=== PATIENT | male | born 1960 | race Caucasian/White ===

== ENCOUNTER 2016-11-06 03:41 | Inpatient (IN) | payer OTHER ==
[2016-11-06] MEDS ORDERED: SODIUM CHLORIDE 0.9% 1,000 ML IV STA ×2 (04:01→05:01)
--- NOTE | 2016-11-06 04:09 | ED ---
General Adult HPI - General Chief complaint: Altered Mental Status Stated complaint: Hyperglycemia Time Seen by Provider: 11/06/16 04:00 Source: EMS, RN notes reviewed, old records reviewed Mode of arrival: EMS Limitations: no limitations - History of Present Illness Initial comments: This is a 56-year-old male here for evaluation. This patient presents here for evaluation of syncopal event, near syncopal event, patient presents by caregiver from extended care facility for evaluation of loss of consciousness, responsiveness, decreased activity level. Patient currently has no complaints, maybe a little bit weak. No change in medication. Patient's blood sugar was found to be high for EMS. Patient's unable to give accurate history, will send in by extended care facility - Related Data Home Medications Medication Instructions Recorded Confirmed Carvedilol [Coreg] 6.25 mg PO BID 06/13/14 11/06/16 DULoxetine HCL [Cymbalta] 30 mg PO BID 11/18/15 11/06/16 Losartan [Cozaar] 25 mg PO DAILY 11/18/15 11/06/16 Gabapentin [Neurontin] 300 mg PO TID@0500,1300,2100 01/28/16 11/06/16 Omeprazole 20 mg PO DAILY 06/12/16 11/06/16 Insulin Glargine [Lantus] 38 units SQ HS@199909/29/16 11/06/16 Multivitamins, Thera [Multivitamin] 1 tab PO DAILY 10/13/16 11/06/16 QUEtiapine [SEROquel] 200 mg PO HS@199910/13/16 11/06/16 cloNIDine HCL [Catapres] 0.2 mg PO TID@0600,1300,2100 10/13/16 11/06/16 Previous Rx's Medication Instructions Recorded Atorvastatin [Lipitor] 40 mg PO DAILY tab 10/17/16 Collagenase [Santyl] 1 applic TOPICAL Q72H applic 10/17/16 Meropenem [Merrem] 1 gm IVPB Q8HR #42 vial 10/17/16 Methadone [Dolophine] 5 mg PO Q8H #90 tab 10/17/16 Acetaminophen Tab [Tylenol] 650 mg PO Q6HR PRN #0 tab 10/19/16 Allergies Allergy/AdvReac Type Severity Reaction Status Date / Time piperacillin [From Zosyn] Allergy Severe Dyspnea Verified 10/29/16 14:24 tazobactam [From Zosyn] Allergy Severe Dyspnea Verified 10/29/16 14:24 tramadol Allergy Unknown Verified 10/13/16 11:40 fentanyl AdvReac Lightheaded Verified 10/13/16 11:40 ketorolac tromethamine AdvReac Nausea Verified 10/13/16 11:40 [From Toradol] Review of Systems ROS Statement: Those systems with pertinent positive or pertinent negative responses have been documented in the HPI. ROS Other: All systems not noted in ROS Statement are negative. Past Medical History Past Medical History: Blood Disorder, Respiratory Disorder, Vascular Disorder Additional Past Medical History / Comment(s): PAD, gastric ulcer hx, chronic back pain, chronic anemia, HCV, mid lung nodule, bollous lung disease, HEP-C, ANEMIA migraine,DECUB ULCER-BUTTOCKS, NEUROPATHY -FINGERS, MIGRAINES, History of Any Multi-Drug Resistant Organisms: MRSA, Other MDRO, VRE Date of last positivie culture/infection: 04/22/16-VRE; 04/22/16-MDRO- Acinetobacter; 09/29/16 MRSA MDRO Source:: Buttock-VRE and MRSA; Right Leg-MDRO; BUTTOCKS Past Surgical History: Adenoidectomy, Appendectomy, Heart Catheterization, Hernia Repair, Orthopedic Surgery, Tonsillectomy Additional Past Surgical History / Comment(s): R BKA, R BKA revision to AKAStorm AKLeo Past Anesthesia/Blood Transfusion Reactions: No Reported Reaction Additional Past Anesthesia/Blood Transfusion Reaction / Comment(s): Pt has never received blood. Past Psychological History: Depression Additional Psychological History / Comment(s): CURRENTLY AT [facility]. He is in a wheelchair and transfers himself. . He does not drive. GOES TO [facility] ON [facility]YS. Smoking Status: Current every day smoker Past Alcohol Use History: Unable to Obtain Additional Past Alcohol Use History / Comment(s): STARTED SMOKING AT AGE 12 1/2 PPD BUT CUT DOWN TO 5 PER DAY PT STATED HE STARTED USING HEROIN AT AGE 29 AND QUIT AT AGE 47. Past Drug Use History: Heroin Additional Drug Use History / Comment(s): PT STATED HE QUIT HEROIN AT AGE 47 - Past Family History Mother Family Medical History: Cancer Additional Family Medical History / Comment(s): Mother of brain cancer mets at the age of 68 yrs. Father Family Medical History: Cancer, Coronary Artery Disease (CAD) Additional Family Medical History / Comment(s): Father of throat cancer at the age of 70yrs. General Exam Limitations: no limitations General appearance: alert, in no apparent distress Head exam: Present: atraumatic, normocephalic, normal inspection Eye exam: Present: normal appearance, PERRL, EOMI. Absent: scleral icterus, conjunctival injection, periorbital swelling ENT exam: Present: normal exam, mucous membranes moist Neck exam: Present: normal inspection. Absent: tenderness, meningismus, lymphadenopathy Respiratory exam: Present: normal lung sounds bilaterally. Absent: respiratory distress, wheezes, rales, rhonchi, stridor Cardiovascular Exam: Present: regular rate, normal rhythm, normal heart sounds. Absent: systolic murmur, diastolic murmur, rubs, gallop, clicks GI/Abdominal exam: Present: soft, normal bowel sounds. Absent: distended, tenderness, guarding, rebound, rigid Extremities exam: Present: normal inspection, full ROM, normal capillary refill. Absent: tenderness, pedal edema, joint swelling, calf tenderness Back exam: Present: normal inspection Neurological exam: Present: alert, oriented X3, CN II-XII intact Psychiatric exam: Present: normal affect, normal mood Skin exam: Present: warm, dry, intact, normal color. Absent: rash Course Vital Signs 11/06/16 11/06/16 03:43 04:36 Temperature 97.8 F Pulse Rate 79 80 Respiratory 18 18 Rate Blood Pressure 118/65 154/85 O2 Sat by Pulse 100 98 Oximetry - Reevaluation(s) Reevaluation #1: 11/06/16 05:02 Patient denies any chest pain or shortness of breath EKG Findings - EKG Comments: EKG Findings:: EKG shows normal sinus rhythm of 80, NH 13, QRS 104, QTC 479 Medical Decision Making - Medical Decision Making 56 male here for evaluation. Patient's endeared reversible to mental status, syncopal event. Patient elevated troponin, dehydration. Patient will be admitted for cardiac observation, continued serial troponins and cardiac evaluation - Lab Data Result diagrams: 11/06/16 03:55 11/06/16 03:55 Lab Results 11/06/16 11/06/1617 Range/Units 03:55 03:55 03:55 WBC 5.7 (3.8-10.6) k/uL RBC 3.04 L (4.30-5.90) m/uL Hgb 8.7 L (13.0-17.5) gm/dL Hct 28.6 L (39.0-53.0) % MCV 94.2 (80.0-100.0) fL MCH 28.7 (25.0-35.0) pg MCHC 30.5 L (31.0-37.0) g/dL RDW 17.3 H (11.5-15.5) % Plt Count 380 (150-450) k/uL Neutrophils % 65 % Lymphocytes % 23 % Monocytes % 6 % Eosinophils % 5 % Basophils % 0 % Neutrophils # 3.7 (1.3-7.7) k/uL Lymphocytes # 1.3 (1.0-4.8) k/uL Monocytes # 0.3 (0-1.0) k/uL Eosinophils # 0.3 (0-0.7) k/uL Basophils # 0.0 (0-0.2) k/uL Hypochromasia Slight Anisocytosis Slight PT (9.0-12.0) sec INR (<1.1) APTT (22.0-30.0) sec Sodium 136 L (137-145) mmol/L Potassium 5.3 H (3.5-5.1) mmol/L Chloride 105 (98-107) mmol/L Carbon Dioxide 20 L (22-30) mmol/L Anion Gap 11 mmol/L BUN 42 H (9-20) mg/dL Creatinine 2.30 H (0.66-1.25) mg/dL Est GFR (MDRD) Af Amer 36 (>60 ml/min/1.73 sqM) Est GFR (MDRD) Non-Af 29 (>60 ml/min/1.73 sqM) Glucose 370 H (74-99) mg/dL Plasma Lactic Acid Ayo (0.7-2.0) mmol/L Calcium 8.9 (8.4-10.2) mg/dL Phosphorus 4.4 (2.5-4.5) mg/dL Magnesium 1.8 (1.6-2.3) mg/dL Total Bilirubin 0.5 (0.2-1.3) mg/dL AST 46 (17-59) U/L ALT 51 (21-72) U/L Alkaline Phosphatase 110 (38-126) U/L Total Creatine Kinase 1010 H (55-170) U/L CK-MB (CK-2) 5.7 H* (0.0-2.4) ng/mL CK-MB (CK-2) Rel Index 0.6 Troponin I 1.840 H* (0.000-0.034) ng/mL Total Protein 7.0 (6.3-8.2) g/dL Albumin 3.5 (3.5-5.0) g/dL 11/06/16 11/06/16 Range/Units 03:55 03:55 WBC (3.8-10.6) k/uL RBC (4.30-5.90) m/uL Hgb (13.0-17.5) gm/dL Hct (39.0-53.0) % MCV (80.0-100.0) fL MCH (25.0-35.0) pg MCHC (31.0-37.0) g/dL RDW (11.5-15.5) % Plt Count (150-450) k/uL Neutrophils % % Lymphocytes % % Monocytes % % Eosinophils % % Basophils % % Neutrophils # (1.3-7.7) k/uL Lymphocytes # (1.0-4.8) k/uL Monocytes # (0-1.0) k/uL Eosinophils # (0-0.7) k/uL Basophils # (0-0.2) k/uL Hypochromasia Anisocytosis PT 10.6 (9.0-12.0) sec INR 1.1 (<1.1) APTT 22.6 (22.0-30.0) sec Sodium (137-145) mmol/L Potassium (3.5-5.1) mmol/L Chloride (98-107) mmol/L Carbon Dioxide (22-30) mmol/L Anion Gap mmol/L BUN (9-20) mg/dL Creatinine (0.66-1.25) mg/dL Est GFR (MDRD) Af Amer (>60 ml/min/1.73 sqM) Est GFR (MDRD) Non-Af (>60 ml/min/1.73 sqM) Glucose (74-99) mg/dL Plasma Lactic Acid Ayo 0.8 (0.7-2.0) mmol/L Calcium (8.4-10.2) mg/dL Phosphorus (2.5-4.5) mg/dL Magnesium (1.6-2.3) mg/dL Total Bilirubin (0.2-1.3) mg/dL AST (17-59) U/L ALT (21-72) U/L Alkaline Phosphatase (38-126) U/L Total Creatine Kinase (55-170) U/L CK-MB (CK-2) (0.0-2.4) ng/mL CK-MB (CK-2) Rel Index Troponin I (0.000-0.034) ng/mL Total Protein (6.3-8.2) g/dL Albumin (3.5-5.0) g/dL - Radiology Data Radiology results: report reviewed (CT brain negative for acute disease, chest x -ray negative for acute disease), image reviewed Critical Care Time Critical Care Time: Yes Total Critical Care Time: 31 Disposition Clinical Impression: Altered mental status, Chest pain, NSTEMI (non-ST elevated myocardial infarction) Disposition: ADMITTED IP TO THIS HOSP Condition: Serious Instructions: Altered Mental Status (ED) Referrals: Brent Chong MD [Primary Care Provider] - 1-2 days
[2016-11-06 04:12] LABS: Anisocytosis Slight; Basophils % (A) 0 %; CH 29.3; CHCM 31.3; Eosinophils # (A) 0.3 k/uL (0-0.7); Eosinophils % (A) 5 %; HCT 28.6 % (39.0-53.0); HDW 2.99; HGB 8.7 gm/dL (13.0-17.5); Hypochromasia Slight; Luc # (Auto) 0.06; Luc % (Auto) 1; Lymphocytes # (A) 1.3 k/uL (1.0-4.8); Lymphocytes % (A) 23 %; MCH 28.7 pg (25.0-35.0); MCHC 30.5 g/dL (31.0-37.0); MCV 94.2 fL (80.0-100.0); Mean Platelet Volume 7.5; Monocytes # (A) 0.3 k/uL (0-1.0); Monocytes % (A) 6 %; Neutrophils # (A) 3.7 k/uL (1.3-7.7); Neutrophils % (A) 65 %; RBC 3.04 m/uL (4.30-5.90); RDW 17.3 % (11.5-15.5); WBC 5.7 k/uL (3.8-10.6)
[2016-11-06 04:21] LABS: INR 1.1 (<1.1); Partial Thromboplastin Time 22.6 sec (22.0-30.0); Prothrombin Time 10.6 sec (9.0-12.0)
[2016-11-06 04:22] LABS: Calcium 8.9 mg/dL (8.4-10.2); Magnesium 1.8 mg/dL (1.6-2.3); Phosphorous 4.4 mg/dL (2.5-4.5); Potassium 5.3 mmol/L (3.5-5.1); Total Bilirubin 0.5 mg/dL (0.2-1.3)
--- NOTE | 2016-11-06 04:32 | CT ---
EXAMINATION TYPE: CT brain wo con DATE OF EXAM: 11/06/2016 4:18 AM COMPARISON: October 13, 2016 HISTORY: AMS, hyperglycemia CT DLP: 978.20 mGycm Automated exposure control for dose reduction was used. FINDINGS: There is no acute intracranial hemorrhage, mass effect, or midline shift identified. The cortical sul ci and ventricles are slightly prominent with mild atrophic changes. The cortical sulci are more prom inent in the frontal areas more on the left side. The globes are intact. Mild mucosal thickening is s uggested in the ethmoid sinuses with chronic sinusitis changes. IMPRESSION: No acute intracranial hemorrhage, mass effect, or midline shift is seen. Mild atrophic changes of brain. No significant interval change. Chronic sinusitis changes.
[2016-11-06 04:50] LABS: Creatine Kinase MB 5.7 ng/mL (0.0-2.4); Troponin I 1.84 ng/mL (0.000-0.034)
[2016-11-06] MEDS ORDERED: NITROGLYCERIN SL TABS 0.4 MG TAB SUBLINGUAL PRN (04:59)
[2016-11-06] MEDS ORDERED: HEPARIN SODIUM,PORCINE 5,000 UNIT/ML 1 ML VIAL IV ONE (04:59)
[2016-11-06] MEDS ORDERED: ASPIRIN 81 MG CHEW PO STA (04:59)
[2016-11-06] MEDS: HEPARIN SODIUM,PORCINE/D5W PMX 25,000 UNIT in DEXTROSE/WATER 1 500ML.BAG IV SCH (05:25)
--- NOTE | 2016-11-06 06:45 | XR ---
EXAMINATION TYPE: XR chest 1V portable DATE OF EXAM: 11/06/2016 6:33 AM COMPARISON: October 13, 2016 and 09/29/2016 HISTORY: Altered mental status, weakness hypoglycemia. TECHNIQUE: Single frontal view of the chest is obtained. FINDINGS: There is evidence of faint opacities measuring 1.8 cm and 1.1 cm in the right lung and are probably r elated to focal scarring. Underlying lung nodules cannot be excluded. There is also evidence of super imposed right rib fractures posteriorly. There are also multiple old left rib fractures. No pneumothorax or pleural effusion is noted. The cardiac silhouette size is within normal limits. At herosclerotic calcification is noted in the aortic arch. The osseous structures are intact. IMPRESSION: 1. Faint nodular areas are noted in the right lung as described above are probably related to focal s carring or calcified pleural plaques. Underlying lung nodules cannot be excluded. A clinical correlat ion is recommended. 2. Chronic lung changes.
[2016-11-06] MEDS: SODIUM CHLORIDE 0.9% 1,000 ML IV SCH ×2 (07:00→14:33)
[2016-11-06 07:51] LABS: Glucose,Whole Blood 406 mg/dL (75-99)
[2016-11-06 07:53] LABS: Glucose,Whole Blood 348 mg/dL (75-99)
[2016-11-06] MEDS: INSULIN LISPRO (humaLOG) 300 UNIT/3 ML VIAL SQ SCH ×3 (08:36→21:46)
[2016-11-06] MEDS ORDERED: MEROPENEM 1 GM in SODIUM CHLORIDE 0.9% 100 ML IVPB SCH (10:00)
[2016-11-06 11:06] LABS: Creatine Kinase MB 6.7 ng/mL (0.0-2.4); Troponin I 1.42 ng/mL (0.000-0.034)
[2016-11-06] MEDS ORDERED: IV VANCOMYCIN PER PHARMACY 1 EACH MISC MISCELLANE PRN (14:13)
--- NOTE | 2016-11-06 14:26 | P.CONS ---
History of Present Illness - Reason for Consult Consult date: 11/06/16 IV antibiotics, wound - History of Present Illness This is a 56-year-old male who is well-known to ID service as he has been seen on multiple occasions for lower extremity and coccyx wound infections. Patient was last seen by infectious disease in April 2016 at which time he was treated for coccyx decubitus ulcer stage IV and had a PICC line placed and was discharged on Unasyn 3 g every 6 hours for 28 days. He also had a Cardoza grade 2 diabetic ulcer to the right below the knee amputation. Patient was subsequently admitted June 12 at which time he underwent a right [id number]-[id number] amputation with Dr. Stout. Pathology was positive for osteomyelitis. He was discharged with PICC line in place and Rocephin for a 10 day course. Patient was apparently discharged [facility] and discharged to home which is an apartment at [facility]. [facility] under the care of Dr. Chong initially on August 17 and underwent coccyx wound debridement. Patient was to return on a weekly basis but missed 3 appointments due to transportation issues and a second appointment was on September 17. He also underwent an I&D of the coccyx wound at that time. Local wound care in the form of Hydrofera Blue. He was found at home with mental status changes and complaining of back pain. He was brought into [facility] emergency center for evaluation. WBC 8.0, GFR greater than 60, hemoglobin A1c 8.6, albumin 3.5. Urinalysis was clear, nitrite negative, leukoesterase trace. Urine culture is in progress. Blood culture is status received. Buttocks culture showing gram-positive cocci in clusters. he has been started on vancomycin and Zosyn with concern for osteomyelitis. He has had previous imaging done on the area in June with CAT scan that showed soft tissue changes in the right posterior sacral region with increased density within the soft tissue extends into the osseous structures. Abscess not identified although infection not excluded. Patient had a polymicrobial infection noted of his sacrum during his stay. Antibiotic therapy at discharge was Zosyn and vancomycin. He again was admitted from October 13 through October 19 at which time he was treated for sacral decubitus ulcer. MRI was done did not show evidence of osteomyelitis. Patient was discharged on meropenem and vancomycin to [facility]. Patient now returns to [facility] emergency center due to altered mental status. Patient was brought in by EMS for possible near syncopal episode patient was found to be extremely weak with change in mental status. Chest x-ray showed nodular areas in the right lung probably scarring with chronic changes. CAT scan of the brain showed no acute findings with mild atrophic changes. Patient was noted to be afebrile with white count of 5.7, hemoglobin 8.7. Potassium 5.3 and BUN 42 with creatinine 2.30. CK was 1010. Troponins were 1.840 and 1.420. Patient was noted to have a wound to the left clavicle and right cheek for which apparently he fell out of his scooter. Information passed on through nursing staff as the patient was living at home and was found covered in stool. He also has admitted to staff that he has been taking more than his prescribed methadone for pain control at home. He has multiple consults in place including cardiology, intensive care management although patient is a selective care overflow. Review of Systems ROS unobtainable: due to mental status Past Medical History Past Medical History: Blood Disorder, Diabetes Mellitus, Respiratory Disorder, Vascular Disorder Additional Past Medical History / Comment(s): PAD, gastric ulcer hx, chronic back pain, chronic anemia, HCV, mid lung nodule, bollous lung disease, HEP-C, ANEMIA migraine,DECUB ULCER-BUTTOCKS, NEUROPATHY -FINGERS, MIGRAINES, History of Any Multi-Drug Resistant Organisms: MRSA, Other MDRO, VRE Year Discovered:: 04/22/16-VRE; 04/22/1606-KGKF-[id number]; 09/29/16 MRSA MDRO Source:: Buttock-VRE and MRSA; Right Leg-MDRO; BUTTOCKS Past Surgical History: Adenoidectomy, Appendectomy, Heart Catheterization, Hernia Repair, Orthopedic Surgery, Tonsillectomy Additional Past Surgical History / Comment(s): R GORGE, R GORGE revision to Storm JENKINS Past Anesthesia/Blood Transfusion Reactions: No Reported Reaction Additional Past Anesthesia/Blood Transfusion Reaction / Comm: Pt recently received blood. Past Psychological History: Depression Additional Psychological History / Comment(s): Pt is back home residing alone. He is in a wheelchair and transfers himself. He does not drive. GOES TO [facility] ON [facility] but sometimes is unable to get there due to transportation problems. He uses the bus. Pt states he has no home care. He has a dog. Smoking Status: Current every day smoker Past Alcohol Use History: Unable to Obtain Additional Past Alcohol Use History / Comment(s): STARTED SMOKING AT AGE 12 1/2 PPD BUT CUT DOWN TO 5 PER DAY PT STATED HE STARTED USING HEROIN AT AGE 29 AND QUIT AT AGE 47. Past Drug Use History: Heroin Additional Drug Use History / Comment(s): PT STATED HE QUIT HEROIN AT AGE 47. Pt is on methadone. - Past Family History Mother Family Medical History: Cancer Additional Family Medical History / Comment(s): Mother of brain cancer mets at the age of 68 yrs. Father Family Medical History: Cancer, Coronary Artery Disease (CAD) Additional Family Medical History / Comment(s): Father of throat cancer at the age of 70yrs. Medications and Allergies Home Medications Medication Instructions Recorded Confirmed Type Carvedilol [Coreg] 6.25 mg PO BID 06/13/14 11/06/16 History DULoxetine HCL [Cymbalta] 30 mg PO BID 11/18/15 11/06/16 History Losartan [Cozaar] 25 mg PO DAILY 11/18/15 11/06/16 History Gabapentin [Neurontin] 300 mg PO TID 01/28/16 11/06/16 History Omeprazole 20 mg PO DAILY 06/12/16 11/06/16 History Multivitamins, Thera [Multivitamin] 1 tab PO DAILY 10/13/16 11/06/16 History QUEtiapine [SEROquel] 200 mg PO HS@199910/13/16 11/06/16 History INSULIN LISPRO (humaLOG) [HumaLOG] See Protocol SQ AC-TID 11/06/16 11/06/16 History Insulin Detemir [Levemir] 38 unit SQ DAILY 11/06/16 11/06/16 History Methadone [Dolophine] 10 mg PO Q8HR 11/06/16 11/06/16 History Allergies Allergy/AdvReac Type Severity Reaction Status Date / Time piperacillin [From Zosyn] Allergy Severe Dyspnea Verified 10/29/16 14:24 tazobactam [From Zosyn] Allergy Severe Dyspnea Verified 10/29/16 14:24 tramadol Allergy Unknown Verified 10/13/16 11:40 fentanyl AdvReac Lightheaded Verified 10/13/16 11:40 ketorolac tromethamine AdvReac Nausea Verified 10/13/16 11:40 [From Toradol] Physical Exam Vitals: Vital Signs Temp Pulse Resp BP Pulse Ox 11/06/16 08:39 97.2 F L 75 16 150/81 98 11/06/16 07:51 77 16 136/80 96 11/06/16 07:14 75 15 126/75 93 L 11/06/16 05:56 82 154/84 98 Intake and Output 11/05/16 11/06/16 11/06/16 22:59 06:59 14:59 Other: Weight 48.8 kg Patient Weight 11/07/16 06:59 Weight 48.8 kg This is a 56-year-old emaciated male. He is seen in the intensive care unit. He has very minimal response to verbal stimuli. Voice is mumbled and unable to understand speech. HEENT: Head is normocephalic. Large abrasion to the right cheek. Pupils equal , round. Sclerae is anicteric. Mucous membranes of the mouth are dry. Dentition is in poor order. NECK: Supple. No JVD. No lymphadenopathy. No thyromegaly. Wound to the left clavicle with surrounding erythema. LUNGS: Coarse sounds bilaterally with poor inspiratory effort. No intercostal retractions. HEART: Regular rate and rhythm. No murmur. ABDOMEN: Soft. Bowel sounds are present. No masses. No tenderness. EXTREMITIES: Bilateral lower extremity amputations noted. Wounds to the bilateral lateral surfaces of both stumps. Large sacral decubitus ulcer. NEUROLOGICAL: Patient is now obtunded with minimal eye opening to verbal stimuli. Unable to follow any direction. Speech is low volume and mumbled. Results Results: Laboratory Results WBC 5.7 k/uL (3.8-10.6) 11/06/16 03:55 RBC 3.04 m/uL (4.30-5.90) L 11/06/16 03:55 Hgb 8.7 gm/dL (13.0-17.5) L 11/06/16 03:55 Hct 28.6 % (39.0-53.0) L 11/06/16 03:55 MCV 94.2 fL (80.0-100.0) 11/06/16 03:55 MCH 28.7 pg (25.0-35.0) 11/06/16 03:55 MCHC 30.5 g/dL (31.0-37.0) L 11/06/16 03:55 RDW 17.3 % (11.5-15.5) H 11/06/16 03:55 Plt Count 380 k/uL (150-450) 11/06/16 03:55 Neutrophils % 65 % 11/06/16 03:55 Lymphocytes % 23 % 11/06/16 03:55 Monocytes % 6 % 11/06/16 03:55 Eosinophils % 5 % 11/06/16 03:55 Basophils % 0 % 11/06/16 03:55 Neutrophils # 3.7 k/uL (1.3-7.7) 11/06/16 03:55 Lymphocytes # 1.3 k/uL (1.0-4.8) 11/06/16 03:55 Monocytes # 0.3 k/uL (0-1.0) 11/06/16 03:55 Eosinophils # 0.3 k/uL (0-0.7) 11/06/16 03:55 Basophils # 0.0 k/uL (0-0.2) 11/06/16 03:55 Hypochromasia Slight 11/06/16 03:55 Anisocytosis Slight 11/06/16 03:55 PT 10.6 sec (9.0-12.0) 11/06/16 03:55 INR 1.1 (<1.1) 11/06/16 03:55 APTT 22.6 sec (22.0-30.0) 11/06/16 03:55 Sodium 136 mmol/L (137-145) L 11/06/16 03:55 Potassium 5.3 mmol/L (3.5-5.1) H 11/06/16 03:55 Chloride 105 mmol/L (98-107) 11/06/16 03:55 Carbon Dioxide 20 mmol/L (22-30) L 11/06/16 03:55 Anion Gap 11 mmol/L 11/06/16 03:55 BUN 42 mg/dL (9-20) H 11/06/16 03:55 Creatinine 2.30 mg/dL (0.66-1.25) H 11/06/16 03:55 Est GFR (MDRD) Af Amer 36 (>60 ml/min/1.73 sqM) 11/06/16 03:55 Est GFR (MDRD) Non-Af 29 (>60 ml/min/1.73 sqM) 11/06/16 03:55 Glucose 370 mg/dL (74-99) H 11/06/16 03:55 POC Glucose (mg/dL) 348 mg/dL (75-99) H 11/06/16 07:49 POC Glu Choir Accompanist Katya Yee 11/06/16 07:49 Plasma Lactic Acid Ayo 0.8 mmol/L (0.7-2.0) 11/06/16 03:55 Calcium 8.9 mg/dL (8.4-10.2) 11/06/16 03:55 Phosphorus 4.4 mg/dL (2.5-4.5) 11/06/16 03:55 Magnesium 1.8 mg/dL (1.6-2.3) 11/06/16 03:55 Total Bilirubin 0.5 mg/dL (0.2-1.3) 11/06/16 03:55 AST 46 U/L (17-59) 11/06/16 03:55 ALT 51 U/L (21-72) 11/06/16 03:55 Alkaline Phosphatase 110 U/L (38-126) 11/06/16 03:55 Total Creatine Kinase 1076 U/L (55-170) H 11/06/16 09:47 CK-MB (CK-2) 6.7 ng/mL (0.0-2.4) H* 11/06/16 09:47 CK-MB (CK-2) Rel Index 0.6 11/06/16 09:47 Troponin I 1.420 ng/mL (0.000-0.034) H* 11/06/16 09:47 Total Protein 7.0 g/dL (6.3-8.2) 11/06/16 03:55 Albumin 3.5 g/dL (3.5-5.0) 11/06/16 03:55 CBC & Chem 7: 11/06/16 03:55 11/06/16 03:55 Labs: Abnormal Lab Results - Last 24 Hours (Table) 11/06/16 11/06/16 Range/Units 07:49 09:47 POC Glucose (mg/dL) 348 H (75-99) mg/dL Total Creatine Kinase 1076 H (55-170) U/L CK-MB (CK-2) 6.7 H* (0.0-2.4) ng/mL Troponin I 1.420 H* (0.000-0.034) ng/mL Assessment and Plan Plan: This is a 56-year-old male who is well-known to ID service for multiple admissions for stage IV decubitus ulcer and previous lower extremity wounds status post [id number] amputations bilaterally. Patient now presents with metabolic encephalopathy with noted recent falls at home possibly due to sepsis, overuse of methadone. Patient was also found to have elevated troponins possibly due to acute non-ST elevated myocardial infarction. Patient also presented with acute kidney injury. Blood cultures will be ordered. Consult with general surgeon for debridement of wounds including left clavicle wound and sacral decubitus ulcer. Meropenem and vancomycin will be started based on previous cultures. Wound culture has been obtained from the left clavicle wound. He is in contact isolation for previous MRSA. Wound cultures also been positive for Pseudomonas, Proteus,Providencia stuartii. Due to multiple comorbidities and patient's noncompliance, patient may benefit from comfort care. The above dictated assessment and findings were discussed with Dr. Becerra. The impression and plan of care have been directed as dictated. Keena Chambers nurse practitioner acting as scribe for Dr. Becerra. Time with Patient: Greater than 30
[2016-11-06] MEDS ORDERED: VANCOMYCIN 750 MG in SODIUM CHLORIDE 0.9% 250 ML IVPB ONE (14:30)
[2016-11-06] MEDS: ATORVASTATIN 80 MG TAB PO SCH (14:30)
[2016-11-06 16:02] LABS: Creatine Kinase MB 5.9 ng/mL (0.0-2.4); Troponin I 1.22 ng/mL (0.000-0.034)
--- NOTE | 2016-11-06 17:10 | P.HPIM ---
History of Present Illness H&P Date: 11/06/16 Chief Complaint: Altered mental status Patient is a 56-year-old male patient treated outpatient by Dr. Chong. 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 Patient was recently admitted to the hospital from 10/13/2016 through 10/19/2016 where he had presented with profound anemia and was being treated for infection of decubitus sacral ulcer. Patient was eventually discharged to [facility] on IV antibiotics. According to chart, patient presented to the emergency department via EMS from the [facility] for evaluation of syncopal event and decreased level of consciousness. Chest x-ray with evidence of nodular areas in the right lung probably scarring with chronic changes. CAT scan of the brain showed no acute findings with mild atrophic changes. Admission lab work: WBC 5.7, hemoglobin 8.7, potassium 5.3, glucose 370, troponins 1.8, 1.4, and 1.2. Patient was admitted to the intensive care unit with consults to infectious disease service, cardiology, and Dr. Hou for ICU management. Upon evaluation, patient is quite obtunded and an unreliable historian. Past Medical History Past Medical History: Blood Disorder, Diabetes Mellitus, Respiratory Disorder, Vascular Disorder Additional Past Medical History / Comment(s): PAD, gastric ulcer hx, chronic back pain, chronic anemia, HCV, mid lung nodule, bollous lung disease, HEP-C, ANEMIA migraine,DECUB ULCER-BUTTOCKS, NEUROPATHY -FINGERS, MIGRAINES, History of Any Multi-Drug Resistant Organisms: MRSA, Other MDRO, VRE Date of last positivie culture/infection: 04/22/16-VRE; 04/22/16-MDRO- Acinetobacter; 09/29/16 MRSA MDRO Source:: Buttock-VRE and MRSA; Right Leg-MDRO; BUTTOCKS Past Surgical History: Adenoidectomy, Appendectomy, Heart Catheterization, Hernia Repair, Orthopedic Surgery, Tonsillectomy Additional Past Surgical History / Comment(s): R BKA, R BKA revision to AKA, Storm AKLeo Past Anesthesia/Blood Transfusion Reactions: No Reported Reaction Additional Past Anesthesia/Blood Transfusion Reaction / Comment(s): Pt recently received blood. Past Psychological History: Depression Additional Psychological History / Comment(s): Pt is back home residing alone. He is in a wheelchair and transfers himself. He does not drive. GOES TO THE [facility] ON [address] but sometimes is unable to get there due to transportation problems. He uses the bus. Pt states he has no home care. He has a dog. Smoking Status: Current every day smoker Past Alcohol Use History: Unable to Obtain Additional Past Alcohol Use History / Comment(s): STARTED SMOKING AT AGE 12 1/2 PPD BUT CUT DOWN TO 5 PER DAY PT STATED HE STARTED USING HEROIN AT AGE 29 AND QUIT AT AGE 47. Past Drug Use History: Heroin Additional Drug Use History / Comment(s): PT STATED HE QUIT HEROIN AT AGE 47. Pt is on methadone. - Past Family History Mother Family Medical History: Cancer Additional Family Medical History / Comment(s): Mother of brain cancer mets at the age of 68 yrs. Father Family Medical History: Cancer, Coronary Artery Disease (CAD) Additional Family Medical History / Comment(s): Father of throat cancer at the age of 70yrs. Medications and Allergies Home Medications Medication Instructions Recorded Confirmed Type Carvedilol [Coreg] 6.25 mg PO BID 06/13/14 11/06/16 History DULoxetine HCL [Cymbalta] 30 mg PO BID 11/18/15 11/06/16 History Losartan [Cozaar] 25 mg PO DAILY 11/18/15 11/06/16 History Gabapentin [Neurontin] 300 mg PO TID 01/28/16 11/06/16 History Omeprazole 20 mg PO DAILY 06/12/16 11/06/16 History Multivitamins, Thera [Multivitamin] 1 tab PO DAILY 10/13/16 11/06/16 History QUEtiapine [SEROquel] 200 mg PO HS@199910/13/16 11/06/16 History INSULIN LISPRO (humaLOG) [HumaLOG] See Protocol SQ AC-TID 11/06/16 11/06/16 History Insulin Detemir [Levemir] 38 unit SQ DAILY 11/06/16 11/06/16 History Methadone [Dolophine] 10 mg PO Q8HR 11/06/16 11/06/16 History Allergies Allergy/AdvReac Type Severity Reaction Status Date / Time piperacillin [From Zosyn] Allergy Severe Dyspnea Verified 10/29/16 14:24 tazobactam [From Zosyn] Allergy Severe Dyspnea Verified 10/29/16 14:24 tramadol Allergy Unknown Verified 10/13/16 11:40 fentanyl AdvReac Lightheaded Verified 10/13/16 11:40 ketorolac tromethamine AdvReac Nausea Verified 10/13/16 11:40 [From Toradol] Physical Exam Vitals: Vital Signs Temp Pulse Resp BP Pulse Ox 11/06/16 08:39 97.2 F L 75 16 150/81 98 11/06/16 07:51 77 16 136/80 96 11/06/16 07:14 75 15 126/75 93 L 11/06/16 05:56 82 154/84 98 Intake and Output 11/06/16 11/06/16 11/06/16 06:59 14:59 22:59 Intake Total 223.4 Balance 223.4 Intake: Intake, IV Titration 223.4 Amount Heparin Sodium,Porcine/ 23.4 D5w Pmx 25,000 unit In Dextrose/Water 1 500ml. bag @ 12 UNITS/KG/HR 11. 71 mls/hr IV .Q24H ROSA Rx #:[id number] Sodium Chloride 0.9% 1, 200 000 ml @ 100 mls/hr IV . Q10H ROSA Rx#:[id number] Other: Weight 48.8 kg Patient Weight 11/07/16 06:59 Weight 48.8 kg GENERAL: Pt is lethargic, disheveled, thin, in no apparent distress. HEAD: Normocephalic. Abrasion to right cheek. EYES: Pupils equal and round. Sclera anicteric, conjunctiva are normal. ENT: Dry mucous membranes. NECK:Supple without lymphadenopathy or JVD. LUNGS: Breath sounds diminished to auscultation bilaterally. HEART: Heart S1, S2, no S3 or S4. Regular rate and rhythm. No murmurs, rubs or gallops. ABDOMEN: Soft, nontender, nondistended, normoactive bowel sounds. No guarding, no rebound. No masses or organomegaly appreciated. EXTREMITIES: Bilateral lower BKA. Wounds to bilateral surfaces of both stumps. NEUROLOGICAL: Pt oriented x 1. Obtunded. PSYCH: Calm. SKIN: Warm, dry. Large sacral decubitus ulcer, please see nursing documentation for picture and wound measurements. Results CBC & Chem 7: 11/06/16 03:55 11/06/16 03:55 Labs: Abnormal Lab Results - Last 24 Hours (Table) 11/06/16 11/06/16 11/06/16 Range/Units 07:49 09:47 15:24 POC Glucose (mg/dL) 348 H (75-99) mg/dL Total Creatine Kinase 1076 H 754 H (55-170) U/L CK-MB (CK-2) 6.7 H* 5.9 H* (0.0-2.4) ng/mL Troponin I 1.420 H* 1.220 H* (0.000-0.034) ng/mL Microbiology - Last 24 Hours (Table) 11/06/16 10:00 Wound Culture - Preliminary Chest Thrombosis Risk Factor Assmnt - DVT/VTE Prophylaxis DVT/VTE Prophylaxis: Pharmacologic Prophylaxis ordered - Choose All That Apply Any of the Below Risk Factors Present?: Yes Each Factor Represents 1 point: Abnormal pulmonary function (COPD), Acute AR, Age 41-60 years, Medical pt on bed rest Other Risk Factors: Yes Each Risk Factor Represents 2 Points: Patient confined to bed Other congenital or acquired thrombophilia - If yes, enter type in comment: No Thrombosis Risk Factor Assessment Total Risk Factor Score: 6 Thrombosis Risk Factor Assessment Level: High Risk Assessment and Plan Plan: Impression and plan: 1. Metabolic encephalopathy suspect secondary to sepsis and possible overuse of methadone. 2. Elevated troponins suspect secondary to acute non-ST elevated myocardial infarction. Cardiology consult requested, recommendations pending. 3. Acute kidney injury. 4. Stage IV pressure ulcer sacrum. Infectious disease consult requested for IV antibiotics and wound care orders, recommendations noted. 5. Insulin-dependent diabetes mellitus, uncontrolled. Continue Lantus 40 units subcu at bedtime, continue Humalog sliding scale. 6. Coronary artery disease. Most recent echocardiogram with preserved LV function with EF 55-60%. 7. Anemia suspect secondary to acute blood loss and chronic disease. Most recent EGD findings of mild antral gastritis and mild esophagitis with no evidence of upper GI bleed. Colonoscopy with no evidence of active bleed. 8. Wound to left clavicle, please see nursing documentation for wound measurements. 9. History of bilateral AKA. 10. Chronic pain syndrome. 11. History of heroin abuse. 12. History of nicotine dependence. 13. Medical debility. Continue to monitor patient. Home medications of been reviewed and resumed as appropriate. Continue to follow with consults. Continue to fall and aspiration precautions. Continue GI and DVT prophylaxis. Consult social work. Repeat CBC and BMP in a.m. The above impression and plan have been discussed and directed by Dr. Barcenas. Yolanda MEDRANO acting as scribe for Dr. Barcenas.
[2016-11-06] MEDS: HEPARIN SODIUM,PORCINE 5,000 UNIT/ML 1 ML VIAL IV PRN (18:07)
[2016-11-06] MEDS: CARVEDILOL 6.25 MG TAB PO SCH (18:10)
[2016-11-06 18:14] LABS: Glucose,Whole Blood 312 mg/dL (75-99)
--- NOTE | 2016-11-06 18:17 | P.CON ---
Consult Note - . Consult date: 11/06/16 Assessment/Plan:: This is a 56-year-old male who is well-known to ID service as he has been seen on multiple occasions for lower extremity and coccyx wound infections. Patient was last seen by infectious disease in April 2016 at which time he was treated for coccyx decubitus ulcer stage IV and had a PICC line placed and was discharged on Unasyn 3 g every 6 hours for 28 days. He also had a Cardoza grade 2 diabetic ulcer to the right below the knee amputation. Patient was subsequently admitted June 12 at which time he underwent a right [id number] amputation with Dr. Stout. Pathology was positive for osteomyelitis. He was discharged with PICC line in place and Rocephin for a 10 day course. Patient was apparently discharged [facility] and discharged to home which is an apartment at [facility]. [facility] under the care of Dr. Chong initially on August 17 and underwent coccyx wound debridement. Patient was to return on a weekly basis but missed 3 appointments due to transportation issues and a second appointment was on September 17. He also underwent an I&D of the coccyx wound at that time. Local wound care in the form of Hydrofera Blue. He was found at home with mental status changes and complaining of back pain. He was brought into [facility] emergency center for evaluation. WBC 8.0, GFR greater than 60, hemoglobin A1c 8.6, albumin 3.5. Urinalysis was clear, nitrite negative, leukoesterase trace. Urine culture is in progress. Blood culture is status received. Buttocks culture showing gram-positive cocci in clusters. he has been started on vancomycin and Zosyn with concern for osteomyelitis. He has had previous imaging done on the area in June with CAT scan that showed soft tissue changes in the right posterior sacral region with increased density within the soft tissue extends into the osseous structures. Abscess not identified although infection not excluded. Patient had a polymicrobial infection noted of his sacrum during his stay. Antibiotic therapy at discharge was Zosyn and vancomycin. He again was admitted from October 13 through October 19 at which time he was treated for sacral decubitus ulcer. MRI was done did not show evidence of osteomyelitis. Patient was discharged on meropenem and vancomycin to [facility]. The liaison relates the patient did sign out of the facility AMA. He did not complete his multiweek course of intravenous antibiotic therapy. Patient presents with what appears to be overuse of his methadone with fall and potential worsening sepsis. Please see the consult note as dictated by nurse practitioner Mrs. Keena Chambers. The large coccyx ulceration is modestly clean and it's base. This been grossly infected over time. There is evidence of the injury to the left clavicle and the abrasion to his right zygomatic arch area. The patient is very sleepy and quite a poor historian at this time. The plan will be to continue his vancomycin and meropenem. Dosing it because of his acute renal failure. Local wound care to the coccyx with the silver dressing. He can use the foam dressing to the left clavicle. Cultures are in process. His mental status changes. Multifactorial mostly metabolic from his renal failure and likely some sepsis. Blood sugars also being monitored in a been problematic. He did have during his last stay the positive blood culture for the also hemolytic streptococcus this was driving the decision for long-term antibiotic therapy. Patient's prognosis is overall poor because of his noncompliance. Agree with evaluation with the possibility of a more hospice approach. I agree with evaluation, assessment and plan as dictated by nurse practitioner Mrs. Keena Chambers.
--- NOTE | 2016-11-06 18:18 | P.GSCN ---
History of Present Illness Consult date: 11/06/16 Reason for Consult: Wound debridement Requesting physician: Keena Chambers History of present illness: Patient is a 56-year-old male patient treated outpatient by Dr. Chong in the outpatient setting with past medical history significant for stage IV decubitus sacral ulcer. Patient was recently admitted to the hospital from 10/13 through 10/19/2016 where he treated for infection of stage IV decubitus sacral ulcer and discharged to [facility] on IV antibiotics. According to chart, patient presented to the emergency department via EMS from the [facility] for evaluation of syncopal event and decreased level of consciousness with evidence of elevated troponins and acute renal failure. Upon evaluation, patient is quite obtunded and an unreliable historian. Surgical consult has been requested for debridement of wound. Past Medical History Past Medical History: Blood Disorder, Diabetes Mellitus, Respiratory Disorder, Vascular Disorder Additional Past Medical History / Comment(s): PAD, gastric ulcer hx, chronic back pain, chronic anemia, HCV, mid lung nodule, bollous lung disease, HEP-C, ANEMIA migraine,DECUB ULCER-BUTTOCKS, NEUROPATHY -FINGERS, MIGRAINES, History of Any Multi-Drug Resistant Organisms: MRSA, Other MDRO, VRE Year Discovered:: 04/22/16-VRE; 04/22/1638-XLHD-[id number]; 09/29/16 MRSA MDRO Source:: Buttock-VRE and MRSA; Right Leg-MDRO; BUTTOCKS Past Surgical History: Adenoidectomy, Appendectomy, Heart Catheterization, Hernia Repair, Orthopedic Surgery, Tonsillectomy Additional Past Surgical History / Comment(s): R BKA, R BKA revision to AKA, L AKA Past Anesthesia/Blood Transfusion Reactions: No Reported Reaction Additional Past Anesthesia/Blood Transfusion Reaction / Comm: Pt recently received blood. Past Psychological History: Depression Additional Psychological History / Comment(s): Pt is back home residing alone. He is in a wheelchair and transfers himself. He does not drive. GOES TO THE [facility] [address] but sometimes is unable to get there due to transportation problems. He uses the bus. Pt states he has no home care. He has a dog. Smoking Status: Current every day smoker Past Alcohol Use History: Unable to Obtain Additional Past Alcohol Use History / Comment(s): STARTED SMOKING AT AGE 12 1/2 PPD BUT CUT DOWN TO 5 PER DAY PT STATED HE STARTED USING HEROIN AT AGE 29 AND QUIT AT AGE 47. Past Drug Use History: Heroin Additional Drug Use History / Comment(s): PT STATED HE QUIT HEROIN AT AGE 47. Pt is on methadone. - Past Family History Mother Family Medical History: Cancer Additional Family Medical History / Comment(s): Mother of brain cancer mets at the age of 68 yrs. Father Family Medical History: Cancer, Coronary Artery Disease (CAD) Additional Family Medical History / Comment(s): Father of throat cancer at the age of 70yrs. Medications and Allergies Home Medications Medication Instructions Recorded Confirmed Type Carvedilol [Coreg] 6.25 mg PO BID 06/13/14 11/06/16 History DULoxetine HCL [Cymbalta] 30 mg PO BID 11/18/15 11/06/16 History Losartan [Cozaar] 25 mg PO DAILY 11/18/15 11/06/16 History Gabapentin [Neurontin] 300 mg PO TID 01/28/16 11/06/16 History Omeprazole 20 mg PO DAILY 06/12/16 11/06/16 History Multivitamins, Thera [Multivitamin] 1 tab PO DAILY 10/13/16 11/06/16 History QUEtiapine [SEROquel] 200 mg PO HS@199910/13/16 11/06/16 History INSULIN LISPRO (humaLOG) [HumaLOG] See Protocol SQ AC-TID 11/06/16 11/06/16 History Insulin Detemir [Levemir] 38 unit SQ DAILY 11/06/16 11/06/16 History Methadone [Dolophine] 10 mg PO Q8HR 11/06/16 11/06/16 History Allergies Allergy/AdvReac Type Severity Reaction Status Date / Time piperacillin [From Zosyn] Allergy Severe Dyspnea Verified 10/29/16 14:24 tazobactam [From Zosyn] Allergy Severe Dyspnea Verified 10/29/16 14:24 tramadol Allergy Unknown Verified 10/13/16 11:40 fentanyl AdvReac Lightheaded Verified 10/13/16 11:40 ketorolac tromethamine AdvReac Nausea Verified 10/13/16 11:40 [From Toradol] Surgical - Exam Vital Signs Temp Pulse Resp BP Pulse Ox 97.8 F 79 18 118/65 100 11/06/16 03:43 11/06/16 03:43 11/06/16 03:43 11/06/16 03:43 11/06/16 03:43 GENERAL: Pt is lethargic, disheveled, thin, in no apparent distress. LUNGS: Breath sounds diminished to auscultation bilaterally. HEART: Heart S1, S2, no S3 or S4. Regular rate and rhythm. No murmurs, rubs or gallops. ABDOMEN: Soft, nontender, nondistended, normoactive bowel sounds. No guarding, no rebound. No masses or organomegaly appreciated. NEUROLOGICAL: Pt oriented x 1. Obtunded. PSYCH: Calm. SKIN: Warm, dry. Large sacral decubitus ulcer. Infected wound to left clavicle. Results - Labs 11/06/16 03:55 11/06/16 03:55 Abnormal Lab Results - Last 24 Hours (Table) 11/06/16 11/06/16 11/06/16 Range/Units 07:49 09:47 15:24 POC Glucose (mg/dL) 348 H (75-99) mg/dL Total Creatine Kinase 1076 H 754 H (55-170) U/L CK-MB (CK-2) 6.7 H* 5.9 H* (0.0-2.4) ng/mL Troponin I 1.420 H* 1.220 H* (0.000-0.034) ng/mL Microbiology - Last 24 Hours (Table) 11/06/16 10:00 Wound Culture - Preliminary Chest Assessment and Plan Plan: Impression: 1. Stage IV decubitus sacral ulcer, present on admission. 2. Infected wound to left chest. 3. Elevated troponins suspect secondary to non-ST elevation myocardial infarction. 4. Acute renal failure. Plan: Consider debridement when patient is medically stable. We'll continue to follow patient during hospital stay. The above impression and plan have been discussed and directed by Dr. Hancock. Yolanda MEDRANO acting as scribe for Dr. Hancock.
[2016-11-06 18:53] LABS: Appearance,Urine Clear (Clear); Bilirubin,Urine Negative (Negative); Glucose,Urine (UA) 2+ (Negative); Ketones,Urine Negative (Negative); Leukocyte Esterase,Urine Moderate (Negative); Mucus,Urine Rare /hpf; Nitrite,Urine Negative (Negative); PH, Urine 5.5 (5.0-8.0); Particle Count 2087; Protein,Urine 1+ (Negative); RBC,Urine 5 /hpf (0-5); Specific Gravity,Urine 1.008 (1.001-1.035); Squamous Epithelial Cell,Urine <1 /hpf (0-4); UA Billing (MACRO vs. MICRO) MICRO; Urobilinogen,Urine <2.0 mg/dL (<2.0); WBC,Urine 34 /hpf (0-5)
[2016-11-06] MEDS: MEROPENEM 1 GM in SODIUM CHLORIDE 0.9% 100 ML IVPB SCH (20:19)
[2016-11-06] MEDS ORDERED: hydrALAZINE HCL 50 MG TAB PO STA (21:24)
[2016-11-06] MEDS: DULoxetine HCL 30 MG CAPSULE.DR PO SCH (21:39)
[2016-11-06] MEDS: INSULIN GLARGINE 100 UNIT/ML 10 ML VIAL SQ SCH (21:39)
[2016-11-06 21:46] LABS: Glucose,Whole Blood 246 mg/dL (75-99)
[2016-11-06] MEDS: GABAPENTIN 300 MG CAP PO SCH (21:48)
--- NOTE | 2016-11-06 23:54 | P.CRDCN ---
History of Present Illness Consult date: 11/06/16 History of present illness: This is a 56-year-old gentleman who is being followed by ID service for infections of the lower extremities and coccyx. Patient had a right below-knee amputation in the past because of diabetic ulcers. Apparently in June of this year patient had a right a bony amputation and apparently there was suggestion of possible osteomyelitis. Patient was being treated with outpatient antibiotics to PICC line stent is being followed at wound center and has been having I&D. Patient is brought to the hospital this time with complaints of altered mental status. We're asked to see the patient because of abnormal troponin values. Patient has underlying renal failure with creatinine 2.3. It appears that the troponin elevation is related to renal failure and nonspecific in nature. Patient is being followed for acute renal failure . He is also being followed by infectious disease for management of his ulcers. Given his general health and multiple comorbidities., Patient is not a candidate for any invasive cardiac workup. Conservative medical management is recommended. His EKG showed sinus rhythm without any acute ST-T abnormalities Review of Systems Not obtained Past Medical History Past Medical History: Blood Disorder, Diabetes Mellitus, Respiratory Disorder, Vascular Disorder Additional Past Medical History / Comment(s): PAD, gastric ulcer hx, chronic back pain, chronic anemia, HCV, mid lung nodule, bollous lung disease, HEP-C, ANEMIA migraine,DECUB ULCER-BUTTOCKS, NEUROPATHY -FINGERS, MIGRAINES, History of Any Multi-Drug Resistant Organisms: MRSA, Other MDRO, VRE Date of last positivie culture/infection: 04/22/16-VRE; 04/22/16-MDRO- Acinetobacter; 09/29/16 MRSA MDRO Source:: Buttock-VRE and MRSA; Right Leg-MDRO; BUTTOCKS Past Surgical History: Adenoidectomy, Appendectomy, Heart Catheterization, Hernia Repair, Orthopedic Surgery, Tonsillectomy Additional Past Surgical History / Comment(s): R BKA, R BKA revision to Storm JENKINS Past Anesthesia/Blood Transfusion Reactions: No Reported Reaction Additional Past Anesthesia/Blood Transfusion Reaction / Comment(s): Pt recently received blood. Past Psychological History: Depression Additional Psychological History / Comment(s): Pt is back home residing alone. He is in a wheelchair and transfers himself. He does not drive. [facility] ON [facility]SD[facility] but sometimes is unable to get there due to transportation problems. He uses the bus. Pt states he has no home care. He has a dog. Smoking Status: Current every day smoker Past Alcohol Use History: Unable to Obtain Additional Past Alcohol Use History / Comment(s): STARTED SMOKING AT AGE 12 1/2 PPD BUT CUT DOWN TO 5 PER DAY PT STATED HE STARTED USING HEROIN AT AGE 29 AND QUIT AT AGE 47. Past Drug Use History: Heroin Additional Drug Use History / Comment(s): PT STATED HE QUIT HEROIN AT AGE 47. Pt is on methadone. - Past Family History Mother Family Medical History: Cancer Additional Family Medical History / Comment(s): Mother of brain cancer mets at the age of 68 yrs. Father Family Medical History: Cancer, Coronary Artery Disease (CAD) Additional Family Medical History / Comment(s): Father of throat cancer at the age of 70yrs. Medications and Allergies Home Medications Medication Instructions Recorded Confirmed Type Carvedilol [Coreg] 6.25 mg PO BID 06/13/14 11/06/16 History DULoxetine HCL [Cymbalta] 30 mg PO BID 11/18/15 11/06/16 History Losartan [Cozaar] 25 mg PO DAILY 11/18/15 11/06/16 History Gabapentin [Neurontin] 300 mg PO TID 01/28/16 11/06/16 History Omeprazole 20 mg PO DAILY 06/12/16 11/06/16 History Multivitamins, Thera [Multivitamin] 1 tab PO DAILY 10/13/16 11/06/16 History QUEtiapine [SEROquel] 200 mg PO HS@199910/13/16 11/06/16 History INSULIN LISPRO (humaLOG) [HumaLOG] See Protocol SQ AC-TID 11/06/16 11/06/16 History Insulin Detemir [Levemir] 38 unit SQ DAILY 11/06/16 11/06/16 History Methadone [Dolophine] 10 mg PO Q8HR 11/06/16 11/06/16 History Allergies Allergy/AdvReac Type Severity Reaction Status Date / Time piperacillin [From Zosyn] Allergy Severe Dyspnea Verified 10/29/16 14:24 tazobactam [From Zosyn] Allergy Severe Dyspnea Verified 10/29/16 14:24 tramadol Allergy Unknown Verified 10/13/16 11:40 fentanyl AdvReac Lightheaded Verified 10/13/16 11:40 ketorolac tromethamine AdvReac Nausea Verified 10/13/16 11:40 [From Toradol] Physical Exam Vitals: Vital Signs Temp Pulse Resp BP Pulse Ox 11/06/16 16:00 83 15 171/85 100 11/06/16 15:00 89 14 197/90 98 11/06/16 14:00 78 14 169/90 100 11/06/16 13:00 74 15 141/76 100 11/06/16 12:00 80 14 157/81 100 11/06/16 11:00 74 16 119/68 100 11/06/16 10:00 78 143/81 11/06/16 09:19 76 143/81 93 L 11/06/16 08:39 97.2 F L 75 16 150/81 98 11/06/16 07:51 77 16 136/80 96 11/06/16 07:14 75 15 126/75 93 L 11/06/16 05:56 82 154/84 98 Intake and Output 11/06/16 11/06/16 11/07/16 14:59 22:59 06:59 Intake Total 223.4 746.57 Output Total 825 Balance 223.4 -78.43 Intake: Intake, IV Titration 223.4 496.57 Amount Heparin Sodium,Porcine/ 23.4 146.57 D5w Pmx 25,000 unit In Dextrose/Water 1 500ml. bag @ 12 UNITS/KG/HR 11. 71 mls/hr IV .Q24H [facility] Rx #:[id number] Sodium Chloride 0.9% 1, 200 350 000 ml @ 100 mls/hr IV . Q10H [facility] Rx#:[id number] Oral 250 Output: Urine 825 Other: Weight 48.8 kg Patient Weight 11/07/16 06:59 Weight 48.8 kg GENERAL EXAM: Patient lethargic and doesn't respond HEENT: Normocephalic. Normal reaction of pupils, equal size, normal range of extraocular motion. No erythema or exudates in the throat. NECK: No masses, no nuchal rigidity. CHEST: No chest wall deformity. LUNGS: Diminished breath sounds HEART: S1 and S2 normal with no audible mumurs or gallops. Regular rhythm, femorals equal on both sides.. ABDOMEN: No hepatosplenomegaly, normal bowel sounds, no guarding or rigidity. SKIN: No rashes CENTRAL NERVOUS SYSTEM: Deferred EXTREMITIES: Status post amputation Results 11/06/16 03:55 11/06/16 03:55 Cardiac Enzymes 11/06/16 11/06/16 Range/Units 09:47 15:24 CK-MB (CK-2) 6.7 H* 5.9 H* (0.0-2.4) ng/mL Troponin I 1.420 H* 1.220 H* (0.000-0.034) ng/mL Coagulation 11/06/16 11/06/16 Range/Units 14:47 22:50 APTT 25.9 29.0 (22.0-30.0) sec Current Medications Generic Name Dose Route Start Last Admin Trade Name Freq PRN Reason Stop Dose Admin Acetaminophen 650 mg 11/06/16 16:59 Tylenol Tab PO Q6HR PRN Mild Pain or Fever > 100.5 Aspirin 325 mg 11/07/16 09:00 Aspirin PO DAILY [facility] Atorvastatin Calcium 80 mg 11/06/16 09:00 11/06/16 14:30 Lipitor PO Not Given DAILY [facility] Carvedilol 6.25 mg 11/06/16 17:30 11/06/16 18:10 Coreg PO 6.25 mg BID-W/MEALS [facility] Administration Duloxetine HCl 30 mg 11/06/16 21:00 11/06/16 21:39 Cymbalta PO 30 mg BID [facility] Administration Gabapentin 300 mg 11/06/16 22:00 11/06/16 21:48 Neurontin PO 300 mg TID [facility] Administration Heparin Sodium (Porcine) 0 unit 11/06/16 04:59 11/06/16 18:07 Heparin IV 2,450 unit Q6HR PRN Administration Low PTT Protocol Hydralazine HCl 50 mg 11/07/16 09:00 Apresoline PO BID [facility] Heparin Sodium/Dextrose 25,000 500 mls @ 11.71 mls/hr 11/06/16 05:00 17:56 unit/ IV Solution IV 15 units/kg/hr .Q24H [facility] 14.64 mls/hr Protocol Titration 12 UNITS/KG/HR Sodium Chloride 1,000 mls @ 100 mls/hr 11/06/16 05:00 11/06/16 14:33 Saline 0.9% IV 100 mls/hr .Q10H [facility] Administration Meropenem 1 gm/ Sodium 100 mls @ 200 mls/hr 11/06/16 20:00 11/06/16 20:19 Chloride IVPB 200 mls/hr Q12HR@0800,2000 [facility] Administration Insulin Glargine 40 unit 11/06/16 21:00 11/06/16 21:39 Lantus SQ 40 unit HS [facility] Administration Insulin Human Lispro 0 unit 11/06/16 12:30 11/06/16 21:46 Humalog SQ 4 unit ACHS [facility] Administration Protocol Miscellaneous Information 1 each 11/06/16 14:13 Pharmacy To Dose Iv Vancomycin MISCELLANE DIRECTED PRN Per Protocol Nitroglycerin 0.4 mg 11/06/16 04:59 Nitrostat SUBLINGUAL Q5M PRN Chest Pain Pantoprazole Sodium 40 mg 11/07/16 07:30 Protonix PO AC-BRKFST [facility] Quetiapine Fumarate 200 mg 11/06/16 21:45 Seroquel PO HS [facility] Intake and Output 11/06/16 11/06/16 11/07/16 14:59 22:59 06:59 Intake Total 223.4 746.57 Output Total 825 Balance 223.4 -78.43 Intake: Intake, IV Titration 223.4 496.57 Amount Heparin Sodium,Porcine/ 23.4 146.57 D5w Pmx 25,000 unit In Dextrose/Water 1 500ml. bag @ 12 UNITS/KG/HR 11. 71 mls/hr IV .Q24H [facility] Rx #:[id number] Sodium Chloride 0.9% 1, 200 350 000 ml @ 100 mls/hr IV . Q10H [facility] Rx#:[id number] Oral 250 Output: Urine 825 Other: Weight 48.8 kg Patient Weight 11/07/16 06:59 Weight 48.8 kg EKG Interpretations (text) Sinus rhythm without any acute changes Assessment and Plan (1) Altered mental status Status: Acute (2) Anemia Status: Acute (3) CHF (congestive heart failure) Status: Acute (4) Coronary artery disease Status: Acute (5) Decubitus ulcer of sacral region, stage 4 Status: Acute (6) S/P bilateral BKA (below knee amputation) Status: Chronic Plan: Patient has evidence of metabolic encephalopathy and renal failure. Troponin elevation appears to be nonspecific though non-ST elevation myocardial infarct cannot be ruled out. and EKG did not reveal any acute changes .ID is following for management of his ulcers in I will recommend conservative management with nitrates and beta blockers and aspirin as tolerated. Prognosis is guarded. Chest x-ray showed some chronic findings without evidence of an acute CHF.
[2016-11-07] MEDS: ACETAMINOPHEN TAB 325 MG TAB PO PRN (00:57)
[2016-11-07] MEDS: QUEtiapine 200 MG TAB PO SCH ×2 (00:58→21:43)
[2016-11-07] MEDS: NITROGLYCERIN OINT 1 INCH/GM PACKET TOPICAL SCH ×3 (00:58→15:35)
[2016-11-07] MEDS: SODIUM CHLORIDE 0.9% 1,000 ML IV SCH ×3 (01:01→21:43)
[2016-11-07] MEDS: HEPARIN SODIUM,PORCINE 5,000 UNIT/ML 1 ML VIAL IV PRN ×2 (01:06→06:05)
[2016-11-07 05:16] LABS: Anisocytosis Slight; Basophils % (A) 0 %; CH 28.9; CHCM 30.5; Eosinophils # (A) 0.4 k/uL (0-0.7); Eosinophils % (A) 7 %; HCT 24.3 % (39.0-53.0); HDW 3.09; HGB 7.5 gm/dL (13.0-17.5); Hypochromasia Marked; Luc % (Auto) 2; Lymphocytes # (A) 1.5 k/uL (1.0-4.8); Lymphocytes % (A) 26 %; MCH 29.1 pg (25.0-35.0); MCHC 30.7 g/dL (31.0-37.0); Monocytes # (A) 0.3 k/uL (0-1.0); Monocytes % (A) 4 %; Neutrophils # (A) 3.6 k/uL (1.3-7.7); Neutrophils % (A) 61 %; RBC 2.56 m/uL (4.30-5.90); RDW 17.1 % (11.5-15.5); WBC 5.8 k/uL (3.8-10.6); WBC (Perox) 5.79
[2016-11-07 05:24] LABS: Anion Gap 7 mmol/L; Blood Urea Nitrogen 31 mg/dL (9-20); Calcium 8.1 mg/dL (8.4-10.2); Carbon Dioxide 19 mmol/L (22-30); Chloride 109 mmol/L (98-107); Cholesterol 87 mg/dL (<200); Glucose 262 mg/dL (74-99); HDL Cholesterol 31 mg/dL (40-60); Non-African American GFR(MDRD) 52 (>60 ml/min/1.73 sqM); Potassium 4.9 mmol/L (3.5-5.1); Sodium 135 mmol/L (137-145); Triglycerides 98 mg/dL (<150)
[2016-11-07] MEDS: METHADONE 10 MG TAB PO SCH ×4 (06:01→23:44)
[2016-11-07] MEDS: CARVEDILOL 6.25 MG TAB PO SCH ×2 (06:16→17:33)
[2016-11-07] MEDS ORDERED: METHADONE 10 MG TAB PO SCH (08:00)
[2016-11-07] MEDS: INSULIN LISPRO (humaLOG) 300 UNIT/3 ML VIAL SQ SCH ×4 (10:12→21:45)
[2016-11-07] MEDS: HEPARIN SODIUM,PORCINE/D5W PMX 25,000 UNIT in DEXTROSE/WATER 1 500ML.BAG IV SCH ×2 (10:14→10:38)
[2016-11-07] MEDS: PANTOPRAZOLE 40 MG TABLET PO SCH (10:14)
[2016-11-07] MEDS: ASPIRIN 325 MG TAB PO SCH (10:15)
[2016-11-07] MEDS: ATORVASTATIN 80 MG TAB PO SCH (10:15)
[2016-11-07] MEDS: DULoxetine HCL 30 MG CAPSULE.DR PO SCH ×2 (10:15→22:34)
[2016-11-07] MEDS: hydrALAZINE HCL 50 MG TAB PO SCH ×2 (10:16→21:43)
[2016-11-07] MEDS: VANCOMYCIN 750 MG in SODIUM CHLORIDE 0.9% 250 ML IVPB SCH (10:16)
[2016-11-07] MEDS: GABAPENTIN 300 MG CAP PO SCH ×3 (10:16→21:43)
[2016-11-07] MEDS: MEROPENEM 1 GM in SODIUM CHLORIDE 0.9% 100 ML IVPB SCH ×2 (10:23→21:39)
[2016-11-07 10:25] LABS: Glucose,Whole Blood 337 mg/dL (75-99)
[2016-11-07 10:25] LABS: Glucose,Whole Blood 346 mg/dL (75-99)
--- NOTE | 2016-11-07 11:25 | P.PN ---
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 We get involved in the care of the patient because the cardiac enzymes were checked and came in to be slightly abnormal. The patient doesn't recall having any chest pain or discomfort or difficulty in breathing or heart racing or fluttering. The EKG did not show any finding consistent with ischemia. Would recommended a conservative medical approach in view of the infection going on with the patient. Currently he is on maximize medical treatment. I will continue the heparin IV for additional 24 hours. Objective - Vital Signs Vital signs: Vital Signs Temp 97.8 F 11/07/16 08:00 Pulse 79 11/07/16 08:00 Resp 11 L 11/07/16 08:00 BP 158/78 11/07/16 08:00 Pulse Ox 98 11/07/16 08:00 Intake & Output 11/06/16 11/07/16 11/07/16 18:59 06:59 18:59 Intake Total 969.97 1172.72 492.888 Output Total 825 500 300 Balance 144.97 672.72 192.888 Weight 48.8 kg 51.9 kg Intake: IV 880 400 Sodium Chloride 0.9% 1, 880 400 000 ml @ 100 mls/hr IV . Q10H [facility] Rx#:[id number] Intake, IV Titration 719.97 292.72 92.888 Amount Heparin Sodium,Porcine/ 169.97 192.72 92.888 D5w Pmx 25,000 unit In Dextrose/Water 1 500ml. bag @ 12 UNITS/KG/HR 11. 71 mls/hr IV .Q24H [facility] Rx #:[id number] Meropenem 1 gm In Sodium 100 Chloride 0.9% 100 ml @ 200 mls/hr IVPB Q12HR@ 0800,2000 [facility] Rx#: [id number] Sodium Chloride 0.9% 1, 550 000 ml @ 100 mls/hr IV . Q10H [facility] Rx#:[id number] Oral 250 Output: Urine 825 500 300 Other: Voiding Method Urinal - Constitutional General appearance: Present: no acute distress - Respiratory Respiratory: bilateral: CTA - Cardiovascular Rhythm: regular Heart sounds: normal: S1, S2 - Labs CBC & Chem 7: 11/07/16 04:31 11/07/16 04:31 Labs: Abnormal Lab Results - Last 24 Hours (Table) 11/06/16 11/06/16 11/06/16 Range/Units 15:24 18:12 18:40 RBC (4.30-5.90) m/uL Hgb (13.0-17.5) gm/dL Hct (39.0-53.0) % MCHC (31.0-37.0) g/dL RDW (11.5-15.5) % APTT (22.0-30.0) sec Sodium (137-145) mmol/L Chloride (98-107) mmol/L Carbon Dioxide (22-30) mmol/L BUN (9-20) mg/dL Creatinine (0.66-1.25) mg/dL Glucose (74-99) mg/dL POC Glucose (mg/dL) 312 H (75-99) mg/dL Calcium (8.4-10.2) mg/dL Total Creatine Kinase 754 H (55-170) U/L CK-MB (CK-2) 5.9 H* (0.0-2.4) ng/mL Troponin I 1.220 H* (0.000-0.034) ng/mL HDL Cholesterol (40-60) mg/dL Urine Protein 1+ H (Negative) Urine Glucose (UA) 2+ H (Negative) Urine Blood Small H (Negative) Ur Leukocyte Esterase Moderate H (Negative) Urine WBC 34 H (0-5) /hpf Urine Mucus Rare H (None) /hpf Urine Yeast (Budding) Few H (None) /hpf 11/06/16 11/07/16 11/07/16 Range/Units 21:45 04:31 04:31 RBC 2.56 L (4.30-5.90) m/uL Hgb 7.5 L (13.0-17.5) gm/dL Hct 24.3 L (39.0-53.0) % MCHC 30.7 L (31.0-37.0) g/dL RDW 17.1 H (11.5-15.5) % APTT (22.0-30.0) sec Sodium 135 L (137-145) mmol/L Chloride 109 H (98-107) mmol/L Carbon Dioxide 19 L (22-30) mmol/L BUN 31 H (9-20) mg/dL Creatinine 1.40 H (0.66-1.25) mg/dL Glucose 262 H (74-99) mg/dL POC Glucose (mg/dL) 246 H (75-99) mg/dL Calcium 8.1 L (8.4-10.2) mg/dL Total Creatine Kinase (55-170) U/L CK-MB (CK-2) (0.0-2.4) ng/mL Troponin I (0.000-0.034) ng/mL HDL Cholesterol 31 L (40-60) mg/dL Urine Protein (Negative) Urine Glucose (UA) (Negative) Urine Blood (Negative) Ur Leukocyte Esterase (Negative) Urine WBC (0-5) /hpf Urine Mucus (None) /hpf Urine Yeast (Budding) (None) /hpf 11/07/16 11/07/16 11/07/16 Range/Units 04:31 10:07 10:09 RBC (4.30-5.90) m/uL Hgb (13.0-17.5) gm/dL Hct (39.0-53.0) % MCHC (31.0-37.0) g/dL RDW (11.5-15.5) % APTT 37.1 H (22.0-30.0) sec Sodium (137-145) mmol/L Chloride (98-107) mmol/L Carbon Dioxide (22-30) mmol/L BUN (9-20) mg/dL Creatinine (0.66-1.25) mg/dL Glucose (74-99) mg/dL POC Glucose (mg/dL) 337 H 346 H (75-99) mg/dL Calcium (8.4-10.2) mg/dL Total Creatine Kinase (55-170) U/L CK-MB (CK-2) (0.0-2.4) ng/mL Troponin I (0.000-0.034) ng/mL HDL Cholesterol (40-60) mg/dL Urine Protein (Negative) Urine Glucose (UA) (Negative) Urine Blood (Negative) Ur Leukocyte Esterase (Negative) Urine WBC (0-5) /hpf Urine Mucus (None) /hpf Urine Yeast (Budding) (None) /hpf Microbiology - Last 24 Hours (Table) 11/06/16 10:00 Gram Stain - Preliminary Chest Wound Culture - Preliminary Presumptive MRSA 11/06/16 18:40 Urine Culture - Preliminary Urine,Clean Catch Assessment and Plan Plan: Assessment #1 MRSA infection #2 mildly abnormal cardiac enzymes #3 multiple comorbid conditions Plan #1 continue the current medical treatment #2 continue the heparin for additional 24 hours #3 follow-up with the patient
--- NOTE | 2016-11-07 12:10 | P.PN ---
Subjective Principal diagnosis: Sacral decub Patient admitted with possible [place] and decubitus ulcer. He has mild pain in the decubitus region. He has a T-max of 100.7. White blood cell count is normal. Objective - Vital Signs Vital signs: Vital Signs Temp 97.8 F 11/07/16 08:00 Pulse 79 11/07/16 08:00 Resp 11 L 11/07/16 08:00 BP 158/78 11/07/16 08:00 Pulse Ox 98 11/07/16 08:00 Intake & Output 11/06/16 11/07/16 11/07/16 18:59 06:59 18:59 Intake Total 969.97 1172.72 492.888 Output Total 825 500 300 Balance 144.97 672.72 192.888 Weight 48.8 kg 51.9 kg Intake: IV 880 400 Sodium Chloride 0.9% 1, 880 400 000 ml @ 100 mls/hr IV . Q10H [facility] Rx#:[id number] Intake, IV Titration 719.97 292.72 92.888 Amount Heparin Sodium,Porcine/ 169.97 192.72 92.888 D5w Pmx 25,000 unit In Dextrose/Water 1 500ml. bag @ 12 UNITS/KG/HR 11. 71 mls/hr IV .Q24H [facility] Rx #:[id number] Meropenem 1 gm In Sodium 100 Chloride 0.9% 100 ml @ 200 mls/hr IVPB Q12HR@ 0800,2000 [facility] Rx#: [id number] Sodium Chloride 0.9% 1, 550 000 ml @ 100 mls/hr IV . Q10H [facility] Rx#:[id number] Oral 250 Output: Urine 825 500 300 Other: Voiding Method Urinal - Exam Left infraclavicular location with an abrasion, mild tenderness Sacral decubitus ulcer clean without significant slough or necrotic tissue mild tenderness noted - Labs CBC & Chem 7: 11/07/16 04:31 11/07/16 04:31 Labs: Abnormal Lab Results - Last 24 Hours (Table) 11/06/16 11/06/16 11/06/16 Range/Units 15:24 18:12 18:40 RBC (4.30-5.90) m/uL Hgb (13.0-17.5) gm/dL Hct (39.0-53.0) % MCHC (31.0-37.0) g/dL RDW (11.5-15.5) % APTT (22.0-30.0) sec Sodium (137-145) mmol/L Chloride (98-107) mmol/L Carbon Dioxide (22-30) mmol/L BUN (9-20) mg/dL Creatinine (0.66-1.25) mg/dL Glucose (74-99) mg/dL POC Glucose (mg/dL) 312 H (75-99) mg/dL Calcium (8.4-10.2) mg/dL Total Creatine Kinase 754 H (55-170) U/L CK-MB (CK-2) 5.9 H* (0.0-2.4) ng/mL Troponin I 1.220 H* (0.000-0.034) ng/mL HDL Cholesterol (40-60) mg/dL Urine Protein 1+ H (Negative) Urine Glucose (UA) 2+ H (Negative) Urine Blood Small H (Negative) Ur Leukocyte Esterase Moderate H (Negative) Urine WBC 34 H (0-5) /hpf Urine Mucus Rare H (None) /hpf Urine Yeast (Budding) Few H (None) /hpf 11/06/16 11/07/16 11/07/16 Range/Units 21:45 04:31 04:31 RBC 2.56 L (4.30-5.90) m/uL Hgb 7.5 L (13.0-17.5) gm/dL Hct 24.3 L (39.0-53.0) % MCHC 30.7 L (31.0-37.0) g/dL RDW 17.1 H (11.5-15.5) % APTT (22.0-30.0) sec Sodium 135 L (137-145) mmol/L Chloride 109 H (98-107) mmol/L Carbon Dioxide 19 L (22-30) mmol/L BUN 31 H (9-20) mg/dL Creatinine 1.40 H (0.66-1.25) mg/dL Glucose 262 H (74-99) mg/dL POC Glucose (mg/dL) 246 H (75-99) mg/dL Calcium 8.1 L (8.4-10.2) mg/dL Total Creatine Kinase (55-170) U/L CK-MB (CK-2) (0.0-2.4) ng/mL Troponin I (0.000-0.034) ng/mL HDL Cholesterol 31 L (40-60) mg/dL Urine Protein (Negative) Urine Glucose (UA) (Negative) Urine Blood (Negative) Ur Leukocyte Esterase (Negative) Urine WBC (0-5) /hpf Urine Mucus (None) /hpf Urine Yeast (Budding) (None) /hpf 11/07/16 11/07/16 11/07/16 Range/Units 04:31 10:07 10:09 RBC (4.30-5.90) m/uL Hgb (13.0-17.5) gm/dL Hct (39.0-53.0) % MCHC (31.0-37.0) g/dL RDW (11.5-15.5) % APTT 37.1 H (22.0-30.0) sec Sodium (137-145) mmol/L Chloride (98-107) mmol/L Carbon Dioxide (22-30) mmol/L BUN (9-20) mg/dL Creatinine (0.66-1.25) mg/dL Glucose (74-99) mg/dL POC Glucose (mg/dL) 337 H 346 H (75-99) mg/dL Calcium (8.4-10.2) mg/dL Total Creatine Kinase (55-170) U/L CK-MB (CK-2) (0.0-2.4) ng/mL Troponin I (0.000-0.034) ng/mL HDL Cholesterol (40-60) mg/dL Urine Protein (Negative) Urine Glucose (UA) (Negative) Urine Blood (Negative) Ur Leukocyte Esterase (Negative) Urine WBC (0-5) /hpf Urine Mucus (None) /hpf Urine Yeast (Budding) (None) /hpf Microbiology - Last 24 Hours (Table) 11/06/16 10:00 Gram Stain - Preliminary Chest Wound Culture - Preliminary Presumptive MRSA 11/06/16 18:40 Urine Culture - Preliminary Urine,Clean Catch Assessment and Plan (1) Decubitus ulcer of buttock, stage 3 Narrative/Plan: Continue antibiotics. Continue local wound care. Dr. Hancock will resume coverage on Wednesday. Status: Acute
[2016-11-07 12:30] LABS: Glucose,Whole Blood 238 mg/dL (75-99)
--- NOTE | 2016-11-07 13:36 | P.PN ---
Subjective Principal diagnosis: Principal diagnosis MRSA infection of the chest wall #2 mildly abnormal cardiac enzymes and multiple comorbidities Patient is a 56-year-old gentleman in no acute distress with extensive history of diabetes and chronic kidney disease peripheral artery disease hypertension and dyslipidemia who was admitted to the hospital because an oppressive infection involving the chest wall also involving the coccyx. Which has subsequently been identified as methicillin-resistant staph infection patient also has mildly elevated cardiac enzymes. However the patient does not recall having chest pain or discomfort difficulty breathing heart racing or fluttering area patient is a known history of IV drug abuse and is subsequently on methadone and has a history of excessively using his method Objective - Vital Signs Vital signs: Vital Signs Temp 97.8 F 11/07/16 08:00 Pulse 79 11/07/16 08:00 Resp 11 L 11/07/16 08:00 BP 158/78 11/07/16 08:00 Pulse Ox 98 11/07/16 08:00 Intake & Output 11/06/16 11/07/16 11/07/16 18:59 06:59 18:59 Intake Total 969.97 1172.72 492.888 Output Total 825 500 300 Balance 144.97 672.72 192.888 Weight 48.8 kg 51.9 kg Intake: IV 880 400 Sodium Chloride 0.9% 1, 880 400 000 ml @ 100 mls/hr IV . Q10H [facility] Rx#:[id number] Intake, IV Titration 719.97 292.72 92.888 Amount Heparin Sodium,Porcine/ 169.97 192.72 92.888 D5w Pmx 25,000 unit In Dextrose/Water 1 500ml. bag @ 12 UNITS/KG/HR 11. 71 mls/hr IV .Q24H [facility] Rx #:[id number] Meropenem 1 gm In Sodium 100 Chloride 0.9% 100 ml @ 200 mls/hr IVPB Q12HR@ 0800,2000 [facility] Rx#: [id number] Sodium Chloride 0.9% 1, 550 000 ml @ 100 mls/hr IV . Q10H [facility] Rx#:[id number] Oral 250 Output: Urine 825 500 300 Other: Voiding Method Urinal - Exam General: [Patient awake, alert and oriented times 3. Patient in no acute distress.] HEENT: [PERRL. EOMI. No pharyngeal erythema or exudate.] Neck: [No adenopathy.] Cardiac: [Heart regular in rate and rhythm. No S3. No S4. No clicks, rubs. No murmur.] Lungs: [Clear to auscultation bilaterally.] Patient has a left infrahilar clavicular abrasion with mild tenderness Abdomen: [No mass. No organomegaly. Bowel sounds presnt and normoactive in all 4 quadrants.] Extremes: [No edema no cyanosis no claudication normal pulses] Patient also has a sacral decubitus ulcer clean without significant slough and necrotic tissue mild tenderness is also noted Musculoskeletal: [No joint erythema, edema or tenderness.] Skin: [No rash.] Neurologic: [No lateralizing deficits. CN II - XII grossly intact.] Lymphatic: [No adenopathy.] - Labs CBC & Chem 7: 11/07/16 04:31 11/07/16 04:31 Labs: Abnormal Lab Results - Last 24 Hours (Table) 11/06/16 11/06/16 11/06/16 Range/Units 15:24 18:12 18:40 RBC (4.30-5.90) m/uL Hgb (13.0-17.5) gm/dL Hct (39.0-53.0) % MCHC (31.0-37.0) g/dL RDW (11.5-15.5) % APTT (22.0-30.0) sec Sodium (137-145) mmol/L Chloride (98-107) mmol/L Carbon Dioxide (22-30) mmol/L BUN (9-20) mg/dL Creatinine (0.66-1.25) mg/dL Glucose (74-99) mg/dL POC Glucose (mg/dL) 312 H (75-99) mg/dL Calcium (8.4-10.2) mg/dL Total Creatine Kinase 754 H (55-170) U/L CK-MB (CK-2) 5.9 H* (0.0-2.4) ng/mL Troponin I 1.220 H* (0.000-0.034) ng/mL HDL Cholesterol (40-60) mg/dL Urine Protein 1+ H (Negative) Urine Glucose (UA) 2+ H (Negative) Urine Blood Small H (Negative) Ur Leukocyte Esterase Moderate H (Negative) Urine WBC 34 H (0-5) /hpf Urine Mucus Rare H (None) /hpf Urine Yeast (Budding) Few H (None) /hpf 11/06/16 11/07/16 11/07/16 Range/Units 21:45 04:31 04:31 RBC 2.56 L (4.30-5.90) m/uL Hgb 7.5 L (13.0-17.5) gm/dL Hct 24.3 L (39.0-53.0) % MCHC 30.7 L (31.0-37.0) g/dL RDW 17.1 H (11.5-15.5) % APTT (22.0-30.0) sec Sodium 135 L (137-145) mmol/L Chloride 109 H (98-107) mmol/L Carbon Dioxide 19 L (22-30) mmol/L BUN 31 H (9-20) mg/dL Creatinine 1.40 H (0.66-1.25) mg/dL Glucose 262 H (74-99) mg/dL POC Glucose (mg/dL) 246 H (75-99) mg/dL Calcium 8.1 L (8.4-10.2) mg/dL Total Creatine Kinase (55-170) U/L CK-MB (CK-2) (0.0-2.4) ng/mL Troponin I (0.000-0.034) ng/mL HDL Cholesterol 31 L (40-60) mg/dL Urine Protein (Negative) Urine Glucose (UA) (Negative) Urine Blood (Negative) Ur Leukocyte Esterase (Negative) Urine WBC (0-5) /hpf Urine Mucus (None) /hpf Urine Yeast (Budding) (None) /hpf 11/07/16 11/07/16 11/07/16 Range/Units 04:31 10:07 10:09 RBC (4.30-5.90) m/uL Hgb (13.0-17.5) gm/dL Hct (39.0-53.0) % MCHC (31.0-37.0) g/dL RDW (11.5-15.5) % APTT 37.1 H (22.0-30.0) sec Sodium (137-145) mmol/L Chloride (98-107) mmol/L Carbon Dioxide (22-30) mmol/L BUN (9-20) mg/dL Creatinine (0.66-1.25) mg/dL Glucose (74-99) mg/dL POC Glucose (mg/dL) 337 H 346 H (75-99) mg/dL Calcium (8.4-10.2) mg/dL Total Creatine Kinase (55-170) U/L CK-MB (CK-2) (0.0-2.4) ng/mL Troponin I (0.000-0.034) ng/mL HDL Cholesterol (40-60) mg/dL Urine Protein (Negative) Urine Glucose (UA) (Negative) Urine Blood (Negative) Ur Leukocyte Esterase (Negative) Urine WBC (0-5) /hpf Urine Mucus (None) /hpf Urine Yeast (Budding) (None) /hpf 11/07/16 11/07/16 Range/Units 12:00 12:03 RBC (4.30-5.90) m/uL Hgb (13.0-17.5) gm/dL Hct (39.0-53.0) % MCHC (31.0-37.0) g/dL RDW (11.5-15.5) % APTT 49.8 H (22.0-30.0) sec Sodium (137-145) mmol/L Chloride (98-107) mmol/L Carbon Dioxide (22-30) mmol/L BUN (9-20) mg/dL Creatinine (0.66-1.25) mg/dL Glucose (74-99) mg/dL POC Glucose (mg/dL) 238 H (75-99) mg/dL Calcium (8.4-10.2) mg/dL Total Creatine Kinase (55-170) U/L CK-MB (CK-2) (0.0-2.4) ng/mL Troponin I (0.000-0.034) ng/mL HDL Cholesterol (40-60) mg/dL Urine Protein (Negative) Urine Glucose (UA) (Negative) Urine Blood (Negative) Ur Leukocyte Esterase (Negative) Urine WBC (0-5) /hpf Urine Mucus (None) /hpf Urine Yeast (Budding) (None) /hpf Microbiology - Last 24 Hours (Table) 11/06/16 10:00 Gram Stain - Preliminary Chest Wound Culture - Preliminary Presumptive MRSA 11/06/16 18:40 Urine Culture - Preliminary Urine,Clean Catch Assessment and Plan (1) Altered mental status Narrative/Plan: Secondary to overuse of narcotic pain management specifically patient overuses his methadone. This is currently resolved Status: Acute (2) Anemia Narrative/Plan: This is chronic secondary to chronic renal failure Patient has a history of IV drug abuse Status: Acute (3) Decubitus ulcer Status: Acute (4) Sacral decubitus ulcer, stage IV Narrative/Plan: This wound is clean at this time slightly tender Gram stain of the wound is altered and methicillin-resistant staph Patient is currently receiving IV Panko Status: Chronic
[2016-11-07 15:29] LABS: Glucose,Whole Blood 186 mg/dL (75-99)
[2016-11-07 17:37] LABS: Glucose,Whole Blood 223 mg/dL (75-99)
[2016-11-07 21:00] LABS: Glucose,Whole Blood 201 mg/dL (75-99)
[2016-11-07] MEDS: INSULIN GLARGINE 100 UNIT/ML 10 ML VIAL SQ SCH (21:44)
[2016-11-08] MEDS: NITROGLYCERIN OINT 1 INCH/GM PACKET TOPICAL SCH ×4 (01:22→23:31)
[2016-11-08 02:06] LABS: Glucose,Whole Blood 152 mg/dL (75-99)
[2016-11-08 07:28] LABS: Glucose,Whole Blood 87 mg/dL (75-99)
[2016-11-08] MEDS: INSULIN LISPRO (humaLOG) 300 UNIT/3 ML VIAL SQ SCH ×4 (07:30→21:40)
[2016-11-08] MEDS: SODIUM CHLORIDE 0.9% 1,000 ML IV SCH ×2 (08:54→15:47)
[2016-11-08] MEDS: PANTOPRAZOLE 40 MG TABLET PO SCH (08:55)
[2016-11-08] MEDS: CARVEDILOL 6.25 MG TAB PO SCH ×2 (08:55→17:21)
[2016-11-08] MEDS: METHADONE 10 MG TAB PO SCH ×3 (08:55→23:28)
[2016-11-08] MEDS: ASPIRIN 325 MG TAB PO SCH (08:57)
[2016-11-08] MEDS: ATORVASTATIN 80 MG TAB PO SCH (08:57)
[2016-11-08] MEDS: GABAPENTIN 300 MG CAP PO SCH ×3 (08:58→21:40)
[2016-11-08] MEDS: VANCOMYCIN 750 MG in SODIUM CHLORIDE 0.9% 250 ML IVPB SCH (08:58)
[2016-11-08] MEDS: DULoxetine HCL 30 MG CAPSULE.DR PO SCH ×2 (08:58→21:40)
[2016-11-08] MEDS: hydrALAZINE HCL 50 MG TAB PO SCH ×2 (08:58→21:40)
--- NOTE | 2016-11-08 09:36 | P.PN ---
Subjective Principal diagnosis: Principal diagnosis MRSA infection of the chest wall, as well as sacral decubitus ulcer, #2 mildly abnormal cardiac enzymes and multiple comorbidities Patient is a 56-year-old gentleman in no acute distress with extensive history of diabetes and chronic kidney disease peripheral artery disease hypertension and dyslipidemia who was admitted to the hospital because an oppressive infection involving the chest wall also involving the coccyx. Which has subsequently been identified as methicillin-resistant staph infection patient also has mildly elevated cardiac enzymes. However the patient does not recall having chest pain or discomfort difficulty breathing heart racing or fluttering area patient is a known history of IV drug abuse and is subsequently on methadone and has a history of excessively using his methadone. Objective - Vital Signs Vital signs: Vital Signs Temp 98.7 F 11/08/16 07:00 Pulse 79 11/08/16 07:00 Resp 16 11/08/16 07:00 BP 147/73 11/08/16 07:00 Pulse Ox 96 11/08/16 09:16 Intake & Output 11/07/16 11/08/16 11/08/16 18:59 06:59 18:59 Intake Total 1292.888 Output Total 1400 800 Balance -107.112 -800 Intake: IV 1200 Sodium Chloride 0.9% 1, 1200 000 ml @ 100 mls/hr IV . Q10H [facility] Rx#:[id number] Intake, IV Titration 92.888 Amount Heparin Sodium,Porcine/ 92.888 D5w Pmx 25,000 unit In Dextrose/Water 1 500ml. bag @ 12 UNITS/KG/HR 11. 71 mls/hr IV .Q24H [facility] Rx #:[id number] Output: Urine 1400 800 Other: Voiding Method Urinal Urinal # Voids 1 # Bowel Movements 1 - Exam General: [Patient awake, alert and oriented times 3. Patient in no acute distress.] HEENT: [PERRL. EOMI. No pharyngeal erythema or exudate.] Neck: [No adenopathy.] Cardiac: [Heart regular in rate and rhythm. No S3. No S4. No clicks, rubs. No murmur.] Lungs: [Clear to auscultation bilaterally.] Patient has a left infrahilar clavicular abrasion with mild tenderness Abdomen: [No mass. No organomegaly. Bowel sounds presnt and normoactive in all 4 quadrants.] Extremes: [No edema no cyanosis no claudication normal pulses] Patient also has a sacral decubitus ulcer clean without significant slough and necrotic tissue mild tenderness is also noted Musculoskeletal: [No joint erythema, edema or tenderness.] Skin: [No rash.] Neurologic: [No lateralizing deficits. CN II - XII grossly intact.] Lymphatic: [No adenopathy.] - Labs CBC & Chem 7: 11/07/16 04:31 11/07/16 04:31 Labs: Abnormal Lab Results - Last 24 Hours (Table) 11/07/16 11/07/16 11/07/16 Range/Units 10:07 10:09 12:00 APTT 49.8 H (22.0-30.0) sec POC Glucose (mg/dL) 337 H 346 H (75-99) mg/dL 11/07/16 11/07/16 11/07/16 Range/Units 12:03 15:27 17:30 APTT (22.0-30.0) sec POC Glucose (mg/dL) 238 H 186 H 223 H (75-99) mg/dL 11/07/16 11/08/16 Range/Units 20:58 02:04 APTT (22.0-30.0) sec POC Glucose (mg/dL) 201 H 152 H (75-99) mg/dL Microbiology - Last 24 Hours (Table) 11/06/16 15:11 Blood Culture - Preliminary Blood No Growth after 24 hours 11/06/16 14:47 Blood Culture - Preliminary Blood No Growth after 24 hours 11/06/16 10:00 Gram Stain - Preliminary Chest Wound Culture - Preliminary Presumptive MRSA Assessment and Plan (1) Altered mental status Narrative/Plan: Secondary to overuse of narcotic , specifically, this patient overuses his methadone. This is currently resolved Status: Acute (2) Anemia Narrative/Plan: This is chronic secondary to chronic renal failure Patient has a history of IV drug abuse Status: Acute (3) Decubitus ulcer Narrative/Plan: We'll start Aquasol Silver application today, patient is also on IV vancomycin Status: Acute (4) Sacral decubitus ulcer, stage IV Narrative/Plan: This wound is clean at this time, slightly tender, Gram stain of the wound is altered and methicillin-resistant staph Patient is currently receiving IV Panko Status: Chronic
[2016-11-08 09:57] LABS: Mean Platelet Volume 7.3
[2016-11-08] MEDS: HEPARIN SODIUM,PORCINE 5,000 UNIT/ML 1 ML VIAL IV PRN ×2 (11:17→20:23)
[2016-11-08] MEDS: MEROPENEM 1 GM in SODIUM CHLORIDE 0.9% 100 ML IVPB SCH ×2 (11:17→21:38)
[2016-11-08 12:09] LABS: Glucose,Whole Blood 49 mg/dL (75-99)
[2016-11-08 12:25] LABS: Glucose,Whole Blood 48 mg/dL (75-99)
[2016-11-08 12:38] LABS: Glucose,Whole Blood 73 mg/dL (75-99)
[2016-11-08 16:58] LABS: Glucose,Whole Blood 141 mg/dL (75-99)
[2016-11-08 21:09] LABS: Glucose,Whole Blood 139 mg/dL (75-99)
[2016-11-08] MEDS: INSULIN GLARGINE 100 UNIT/ML 10 ML VIAL SQ SCH (21:40)
[2016-11-08] MEDS: QUEtiapine 200 MG TAB PO SCH (21:42)
[2016-11-09] MEDS: HEPARIN SODIUM,PORCINE 5,000 UNIT/ML 1 ML VIAL IV PRN ×2 (03:05→11:35)
[2016-11-09] MEDS: SODIUM CHLORIDE 0.9% 1,000 ML IV SCH ×3 (03:33→21:57)
[2016-11-09 07:36] LABS: Glucose,Whole Blood 89 mg/dL (75-99)
[2016-11-09] MEDS ORDERED: VANCOMYCIN TROUGH DUE 1 EACH MISC MISCELLANE ONE (08:00)
[2016-11-09 09:10] LABS: Anisocytosis Slight; Basophils % (A) 0 %; CH 28.9; CHCM 30.8; Eosinophils # (A) 0.5 k/uL (0-0.7); Eosinophils % (A) 11 %; HCT 26.8 % (39.0-53.0); HDW 3.21; HGB 8.2 gm/dL (13.0-17.5); Hypochromasia Marked; Luc # (Auto) 0.11; Luc % (Auto) 2; Lymphocytes # (A) 1.4 k/uL (1.0-4.8); Lymphocytes % (A) 28 %; MCH 28.8 pg (25.0-35.0); MCHC 30.5 g/dL (31.0-37.0); MCV 94.3 fL (80.0-100.0); Mean Platelet Volume 6.9; Monocytes # (A) 0.3 k/uL (0-1.0); Monocytes % (A) 5 %; Neutrophils # (A) 2.5 k/uL (1.3-7.7); Neutrophils % (A) 53 %; RBC 2.84 m/uL (4.30-5.90); RDW 17.1 % (11.5-15.5); WBC 4.8 k/uL (3.8-10.6)
[2016-11-09 09:31] LABS: Anion Gap 9 mmol/L; Blood Urea Nitrogen 18 mg/dL (9-20); Calcium 8.2 mg/dL (8.4-10.2); Carbon Dioxide 16 mmol/L (22-30); Chloride 115 mmol/L (98-107); Glucose 69 mg/dL (74-99); Non-African American GFR(MDRD) >60 (>60 ml/min/1.73 sqM); Potassium 4.8 mmol/L (3.5-5.1); Sodium 140 mmol/L (137-145)
[2016-11-09] MEDS: METHADONE 10 MG TAB PO SCH ×2 (11:11→18:00)
[2016-11-09] MEDS: VANCOMYCIN 750 MG in SODIUM CHLORIDE 0.9% 250 ML IVPB SCH (11:12)
[2016-11-09] MEDS: GABAPENTIN 300 MG CAP PO SCH ×3 (11:13→21:56)
[2016-11-09] MEDS: ASPIRIN 325 MG TAB PO SCH (11:13)
[2016-11-09] MEDS: ATORVASTATIN 80 MG TAB PO SCH (11:13)
[2016-11-09] MEDS: hydrALAZINE HCL 50 MG TAB PO SCH ×2 (11:13→20:08)
[2016-11-09] MEDS: DULoxetine HCL 30 MG CAPSULE.DR PO SCH ×2 (11:14→20:08)
[2016-11-09] MEDS: PANTOPRAZOLE 40 MG TABLET PO SCH (11:14)
[2016-11-09] MEDS: NITROGLYCERIN OINT 1 INCH/GM PACKET TOPICAL SCH ×2 (11:14→18:00)
[2016-11-09] MEDS: CARVEDILOL 6.25 MG TAB PO SCH ×2 (11:14→18:01)
[2016-11-09] MEDS: INSULIN LISPRO (humaLOG) 300 UNIT/3 ML VIAL SQ SCH ×4 (11:15→21:27)
[2016-11-09] MEDS: HEPARIN SODIUM,PORCINE/D5W PMX 25,000 UNIT in DEXTROSE/WATER 1 500ML.BAG IV SCH (11:22)
[2016-11-09 12:16] LABS: Glucose,Whole Blood 74 mg/dL (75-99)
[2016-11-09] MEDS: MEROPENEM 1 GM in SODIUM CHLORIDE 0.9% 100 ML IVPB SCH ×2 (15:10→20:08)
--- NOTE | 2016-11-09 16:59 | P.PN ---
Subjective Principal diagnosis: MRSA infection of chest wall as well as well as sacral decubitus ulcer Patient is a 56-year-old male patient treated outpatient by Dr. Chong with past medical history significant for coronary artery disease, COPD, diabetes mellitus, GERD, GI bleed, hypertension, chronic back pain, hepatitis C, history of IV drug abuse, bullous lung disease, chronic anemia, and chronic stage IV pressure ulcer to his coccyx. Patient was recently admitted to the hospital from 10/13/2016 through 10/19/2016 where he had presented with profound anemia and was being treated for infection of decubitus sacral ulcer. Patient was eventually discharged to [facility] on IV antibiotics and subsequently discharged home. Patient presented to the emergency department via EMS for evaluation of syncopal event and decreased level of consciousness. Chest x-ray with evidence of nodular areas in the right lung probably scarring with chronic changes. CAT scan of the brain showed no acute findings with mild atrophic changes. Admission lab work: WBC 5.7, hemoglobin 8.7, potassium 5.3, glucose 370, troponins 1.8, 1.4, and 1.2. Patient was admitted to the intensive care unit with consults to infectious disease service, cardiology, and surgical service. Patient admits to taking more than prescribed doses of methadone for uncontrolled pain prior to admission. Patient is currently examined on the medical floor. Patient states his pain is controlled. Denies chills, fevers, nausea, vomiting, shortness of breath, chest pain, or abdominal pain. Patient reports good appetite. Afebrile. Urine cultures positive for MRSA and Karina species. Gram stain wound culture from chest positive for MRSA and Pseudomonas aeruginosa. Patient continues on IV antibiotics in the form of vancomycin and Merrem per infectious disease service. Patient also continues on IV heparin were moderately abnormal cardiac enzymes per cardiology. From a surgical standpoint, continue antibiotics and local wound care. Objective - Vital Signs Vital signs: Vital Signs Temp 97.8 F 11/09/16 15:00 Pulse 76 11/09/16 15:00 Resp 19 11/09/16 15:00 BP 160/99 11/09/16 15:00 Pulse Ox 96 11/09/16 15:00 Intake & Output 11/08/16 11/09/16 11/09/16 18:59 06:59 18:59 Intake Total 0 389.619 110.381 Output Total 700 1575 900 Balance -700 -1185.381 -789.619 Intake: Intake, IV Titration 0 389.619 110.381 Amount Heparin Sodium,Porcine/ 0 389.619 110.381 D5w Pmx 25,000 unit In Dextrose/Water 1 500ml. bag @ 12 UNITS/KG/HR 11. 71 mls/hr IV .Q24H [facility] Rx #:[id number] Output: Urine 700 1575 900 Other: Voiding Method Urinal Urinal # Voids 2 - Exam GENERAL: Pt is awake and alert, thin, in no apparent distress. HEAD: Normocephalic. Abrasion to right cheek. EYES: Pupils equal and round. Sclera anicteric, conjunctiva are normal. ENT: Moist mucous membranes. NECK:Supple without lymphadenopathy or JVD. LUNGS: Breath sounds diminished to auscultation bilaterally. HEART: Heart S1, S2, no S3 or S4. Regular rate and rhythm. No murmurs, rubs or gallops. ABDOMEN: Soft, nontender, nondistended, normoactive bowel sounds. No guarding, no rebound. No masses or organomegaly appreciated. EXTREMITIES: Bilateral lower BKA. NEUROLOGICAL: Pt oriented x 3. No focal deficits. PSYCH: Calm. SKIN: Warm, dry. Large sacral decubitus ulcer, please see nursing documentation for picture and wound measurements. Left chest abrasion. Mildly tender. - Labs CBC & Chem 7: 11/09/16 08:38 11/09/16 08:38 Labs: Abnormal Lab Results - Last 24 Hours (Table) 11/08/16 11/08/16 11/08/16 Range/Units 16:54 17:48 21:07 RBC (4.30-5.90) m/uL Hgb (13.0-17.5) gm/dL Hct (39.0-53.0) % MCHC (31.0-37.0) g/dL RDW (11.5-15.5) % APTT 34.6 H (22.0-30.0) sec Chloride (98-107) mmol/L Carbon Dioxide (22-30) mmol/L Glucose (74-99) mg/dL POC Glucose (mg/dL) 141 H 139 H (75-99) mg/dL Calcium (8.4-10.2) mg/dL 11/09/16 11/09/16 11/09/16 Range/Units 02:30 08:38 08:38 RBC (4.30-5.90) m/uL Hgb (13.0-17.5) gm/dL Hct (39.0-53.0) % MCHC (31.0-37.0) g/dL RDW (11.5-15.5) % APTT 41.2 H 38.9 H (22.0-30.0) sec Chloride 115 H (98-107) mmol/L Carbon Dioxide 16 L (22-30) mmol/L Glucose 69 L (74-99) mg/dL POC Glucose (mg/dL) (75-99) mg/dL Calcium 8.2 L (8.4-10.2) mg/dL 11/09/16 11/09/16 Range/Units 08:38 12:02 RBC 2.84 L (4.30-5.90) m/uL Hgb 8.2 L (13.0-17.5) gm/dL Hct 26.8 L (39.0-53.0) % MCHC 30.5 L (31.0-37.0) g/dL RDW 17.1 H (11.5-15.5) % APTT (22.0-30.0) sec Chloride (98-107) mmol/L Carbon Dioxide (22-30) mmol/L Glucose (74-99) mg/dL POC Glucose (mg/dL) 74 L (75-99) mg/dL Calcium (8.4-10.2) mg/dL Microbiology - Last 24 Hours (Table) 11/06/16 18:40 Urine Culture - Final Urine,Clean Catch Methicillin resist S. aureus Karina sp,not albicans/galbr 11/06/16 10:00 Gram Stain - Final Chest Wound Culture - Final Methicillin resist S. aureus Pseudomonas aeruginosa 11/06/16 15:11 Blood Culture - Preliminary Blood No Growth after 48 hours 11/06/16 14:47 Blood Culture - Preliminary Blood No Growth after 48 hours Assessment and Plan Plan: Impression and plan: 1. Metabolic encephalopathy suspect secondary to sepsis with a urinary cultures positive for MRSA and Karina and wound culture positive for MRSA and Pseudomonas aeruginosa and possible overuse of methadone. 2. Elevated troponins suspect secondary to acute non-ST elevated myocardial infarction. Cardiology has seen and evaluated patient, recommendations noted. Continue IV heparin. 3. Acute kidney injury, present on admission, resolved. 4. Stage IV sacral decubitus ulcer. Infectious disease has seen and evaluated patient, recommendations noted. Continue IV antibiotics and local wound care. 5. Insulin-dependent diabetes mellitus, uncontrolled. Continue Lantus 40 units subcu at bedtime, continue Humalog sliding scale. 6. Coronary artery disease. Most recent echocardiogram with preserved LV function with EF 55-60%. Continue aspirin. 7. Anemia suspect secondary to acute blood loss and chronic disease. Most recent EGD findings of mild antral gastritis and mild esophagitis with no evidence of upper GI bleed. Recent colonoscopy with no evidence of active bleed. 8. Wound to left chest with cultures positive for MRSA and Pseudomonas Aeruginosa. Continue IV antibiotics and local wound care. 9. History of bilateral AKA. 10. Chronic pain syndrome. 11. History of heroin abuse. 12. History of nicotine dependence. 13. Medical debility. Continue to monitor patient. Continue current medications. Continue to follow with consults. Maintain fall and aspiration precautions. Continue GI and DVT prophylaxis. Consult social work for subacute rehab placement. Repeat CBC and BMP in a.m. The above impression and plan have been discussed and directed by Dr. Barcenas. Yolanda MEDRANO acting as scribe for Dr. Barcenas.
[2016-11-09 17:39] LABS: Glucose,Whole Blood 93 mg/dL (75-99)
--- NOTE | 2016-11-09 17:54 | P.PN ---
Subjective Principal diagnosis: Sacral decubitus ulcer Patient is a 56-year-old male admitted with possible MA and sacral decubitus ulcer. Patient complains of mild pain in his decubitus region. Afebrile. No evidence of leukocytosis. Objective - Vital Signs Vital signs: Vital Signs Temp 97.8 F 11/09/16 15:00 Pulse 76 11/09/16 15:00 Resp 19 11/09/16 15:00 BP 160/99 11/09/16 15:00 Pulse Ox 96 11/09/16 15:00 Intake & Output 11/08/16 11/09/16 11/09/16 18:59 06:59 18:59 Intake Total 0 389.619 110.381 Output Total 700 1575 900 Balance -700 -1185.381 -789.619 Intake: Intake, IV Titration 0 389.619 110.381 Amount Heparin Sodium,Porcine/ 0 389.619 110.381 D5w Pmx 25,000 unit In Dextrose/Water 1 500ml. bag @ 12 UNITS/KG/HR 11. 71 mls/hr IV .Q24H [facility] Rx #:[id number] Output: Urine 700 1575 900 Other: Voiding Method Urinal Urinal # Voids 2 - Exam GENERAL: Pt is awake and alert, thin, in no apparent distress. LUNGS: Breath sounds diminished to auscultation bilaterally. HEART: Heart S1, S2, no S3 or S4. Regular rate and rhythm. No murmurs, rubs or gallops. ABDOMEN: Soft, nontender, nondistended, normoactive bowel sounds. No guarding, no rebound. No masses or organomegaly appreciated. SKIN: Warm, dry. Sacral decubitus ulcer, clean without significant slough or necrotic tissue, mild tenderness. Left infraclavicular wound with mild tenderness. - Labs CBC & Chem 7: 11/09/16 08:38 11/09/16 08:38 Labs: Abnormal Lab Results - Last 24 Hours (Table) 11/08/16 11/08/16 11/09/16 Range/Units 17:48 21:07 02:30 RBC (4.30-5.90) m/uL Hgb (13.0-17.5) gm/dL Hct (39.0-53.0) % MCHC (31.0-37.0) g/dL RDW (11.5-15.5) % APTT 34.6 H 41.2 H (22.0-30.0) sec Chloride (98-107) mmol/L Carbon Dioxide (22-30) mmol/L Glucose (74-99) mg/dL POC Glucose (mg/dL) 139 H (75-99) mg/dL Calcium (8.4-10.2) mg/dL 11/09/16 11/09/16 11/09/16 Range/Units 08:38 08:38 08:38 RBC 2.84 L (4.30-5.90) m/uL Hgb 8.2 L (13.0-17.5) gm/dL Hct 26.8 L (39.0-53.0) % MCHC 30.5 L (31.0-37.0) g/dL RDW 17.1 H (11.5-15.5) % APTT 38.9 H (22.0-30.0) sec Chloride 115 H (98-107) mmol/L Carbon Dioxide 16 L (22-30) mmol/L Glucose 69 L (74-99) mg/dL POC Glucose (mg/dL) (75-99) mg/dL Calcium 8.2 L (8.4-10.2) mg/dL 11/09/16 11/09/16 Range/Units 12:02 16:37 RBC (4.30-5.90) m/uL Hgb (13.0-17.5) gm/dL Hct (39.0-53.0) % MCHC (31.0-37.0) g/dL RDW (11.5-15.5) % APTT 70.9 H (22.0-30.0) sec Chloride (98-107) mmol/L Carbon Dioxide (22-30) mmol/L Glucose (74-99) mg/dL POC Glucose (mg/dL) 74 L (75-99) mg/dL Calcium (8.4-10.2) mg/dL Microbiology - Last 24 Hours (Table) 11/06/16 15:11 Blood Culture - Preliminary Blood No Growth after 72 hours 11/06/16 14:47 Blood Culture - Preliminary Blood No Growth after 72 hours 11/06/16 18:40 Urine Culture - Final Urine,Clean Catch Methicillin resist S. aureus Karina sp,not albicans/galbr 11/06/16 10:00 Gram Stain - Final Chest Wound Culture - Final Methicillin resist S. aureus Pseudomonas aeruginosa Assessment and Plan Plan: Impression: 1. Decubitus ulcer of buttocks, stage III. Plan: 1. Continue IV antibiotics. Continue local wound care. Continue medical management. The above impression and plan have been discussed and directed by Dr. Hancock. Yolanda MEDRANO acting as scribe for Dr. Hancock.
--- NOTE | 2016-11-09 18:39 | PN ---
56-year-old male, who is clinically doing better. He has a history of severe chronic obstructive pulmonary disease, emphysema and history of pneumonia in the past with ( ). Clinically patient is doing slightly better. Respiratory status has improved. The patient is being followed by cardiovascular services as well as ID and general surgery. Cardiac enzymes were mildly elevated. The patient has been recommended to maintain on heparin ( ) now is being monitored and observed off of heparin. He is breathing comfortably. Denies any chest pain at this point in time. Last set of vitals include blood pressure is 148/60, respiratory rate 20, pulse 83, temperature 98, saturation 95% to 96%. HEENT: Unremarkable. NECK: Supple. LUNGS: Good air entry bilaterally. HEART: Regular rate and rhythm. ABDOMEN: Soft. NEUROLOGICAL EXAMINATION: Awake and alert. No focal neurological deficits. IMPRESSION: 1. Altered mental status has significantly improved, appears to be related to ( ) narcotic agents. 2. Chronic anemia. 3. Decubitus ulcer and secondary Methicillin-resistant Staph aureus. 4. Chronic obstructive pulmonary disease. 5. History of pulmonary nodules. 6. History of recent pneumonia. 7. Severe chronic obstructive pulmonary disease. Plan and recommendation is as above. Continue supportive care. Continue antibiotics. Continue deep breathing and incentive spirometry. We will monitor and observe closely for the lung nodules. The patient is a very poor surgical candidate for any aggressive intervention. Will follow.
--- NOTE | 2016-11-09 19:48 | P.PN ---
Subjective Principal diagnosis: Pressure ulcers This is a 56-year-old male who is well-known to ID service as he has been seen on multiple occasions for lower extremity and coccyx wound infections. Patient was last seen by infectious disease in April 2016 at which time he was treated for coccyx decubitus ulcer stage IV and had a PICC line placed and was discharged on Unasyn 3 g every 6 hours for 28 days. He also had a Cardoza grade 2 diabetic ulcer to the right below the knee amputation. Patient was subsequently admitted June 12 at which time he underwent a right [id number] amputation with Dr. Stout. Pathology was positive for osteomyelitis. He was discharged with PICC line in place and Rocephin for a 10 day course. Patient was apparently discharged [facility] and discharged to home which is an apartment at [facility]. [facility] under the care of Dr. Chong initially on August 17 and underwent coccyx wound debridement. Patient was to return on a weekly basis but missed 3 appointments due to transportation issues and a second appointment was on September 17. He also underwent an I&D of the coccyx wound at that time. Local wound care in the form of Hydrofera Blue. He was found at home with mental status changes and complaining of back pain. He was brought into [facility] emergency center for evaluation. WBC 8.0, GFR greater than 60, hemoglobin A1c 8.6, albumin 3.5. Urinalysis was clear, nitrite negative, leukoesterase trace. Urine culture is in progress. Blood culture is status received. Buttocks culture showing gram-positive cocci in clusters. he has been started on vancomycin and Zosyn with concern for osteomyelitis. He has had previous imaging done on the area in June with CAT scan that showed soft tissue changes in the right posterior sacral region with increased density within the soft tissue extends into the osseous structures. Abscess not identified although infection not excluded. Patient had a polymicrobial infection noted of his sacrum during his stay. Antibiotic therapy at discharge was Zosyn and vancomycin. He again was admitted from October 13 through October 19 at which time he was treated for sacral decubitus ulcer. MRI was done did not show evidence of osteomyelitis. Patient was discharged on meropenem and vancomycin to [facility]. Patient now returns to [facility] emergency center due to altered mental status. Patient was brought in by EMS for possible near syncopal episode patient was found to be extremely weak with change in mental status. Chest x-ray showed nodular areas in the right lung probably scarring with chronic changes. CAT scan of the brain showed no acute findings with mild atrophic changes. Patient was noted to be afebrile with white count of 5.7, hemoglobin 8.7. Potassium 5.3 and BUN 42 with creatinine 2.30. CK was 1010. Troponins were 1.840 and 1.420. Patient was noted to have a wound to the left clavicle and right cheek for which apparently he fell out of his scooter. Information passed on through nursing staff as the patient was living at home and was found covered in stool. He also has admitted to staff that he has been taking more than his prescribed methadone for pain control at home. He has multiple consults in place including cardiology. Patient is now somewhat improved. He does have multiple ulcerations in the Appears to be new lesions on his bilateral stumps. Objective - Vital Signs Vital signs: Vital Signs Temp 97.8 F 11/09/16 15:00 Pulse 76 11/09/16 15:00 Resp 19 11/09/16 15:00 BP 160/99 11/09/16 15:00 Pulse Ox 96 11/09/16 15:00 Intake & Output 11/09/16 11/09/16 11/10/16 06:59 18:59 06:59 Intake Total 389.619 328.611 Output Total 1575 1600 Balance -1185.381 -1271.389 Intake: Intake, IV Titration 389.619 328.611 Amount Heparin Sodium,Porcine/ 389.619 328.611 D5w Pmx 25,000 unit In Dextrose/Water 1 500ml. bag @ 12 UNITS/KG/HR 11. 71 mls/hr IV .Q24H [facility] Rx #:[id number] Output: Urine 1575 1600 Other: Voiding Method Urinal # Voids 2 - Exam This is a 56-year-old emaciated male. He is seen in the intensive care unit. He has very minimal response to verbal stimuli. Voice is mumbled and unable to understand speech. HEENT: Head is normocephalic. Large abrasion to the right cheek. Pupils equal , round. Sclerae is anicteric. Mucous membranes of the mouth are dry. Dentition is in poor order. NECK: Supple. No JVD. No lymphadenopathy. No thyromegaly. Wound to the left clavicle with surrounding erythema. LUNGS: Coarse sounds bilaterally with poor inspiratory effort. No intercostal retractions. HEART: Regular rate and rhythm. No murmur. ABDOMEN: Soft. Bowel sounds are present. No masses. No tenderness. EXTREMITIES: Bilateral lower extremity amputations noted. Wounds to the bilateral lateral surfaces of both stump are noted Large sacral decubitus ulcer. NEUROLOGICAL: Patient is now much more awake and alert follow some simple commands. Is still somewhat lethargic. - Labs CBC & Chem 7: 11/09/16 08:38 11/09/16 08:38 Labs: Abnormal Lab Results - Last 24 Hours (Table) 11/08/16 11/09/16 11/09/16 Range/Units 21:07 02:30 08:38 RBC (4.30-5.90) m/uL Hgb (13.0-17.5) gm/dL Hct (39.0-53.0) % MCHC (31.0-37.0) g/dL RDW (11.5-15.5) % APTT 41.2 H (22.0-30.0) sec Chloride 115 H (98-107) mmol/L Carbon Dioxide 16 L (22-30) mmol/L Glucose 69 L (74-99) mg/dL POC Glucose (mg/dL) 139 H (75-99) mg/dL Calcium 8.2 L (8.4-10.2) mg/dL 11/09/16 11/09/16 11/09/16 Range/Units 08:38 08:38 12:02 RBC 2.84 L (4.30-5.90) m/uL Hgb 8.2 L (13.0-17.5) gm/dL Hct 26.8 L (39.0-53.0) % MCHC 30.5 L (31.0-37.0) g/dL RDW 17.1 H (11.5-15.5) % APTT 38.9 H (22.0-30.0) sec Chloride (98-107) mmol/L Carbon Dioxide (22-30) mmol/L Glucose (74-99) mg/dL POC Glucose (mg/dL) 74 L (75-99) mg/dL Calcium (8.4-10.2) mg/dL 11/09/16 Range/Units 16:37 RBC (4.30-5.90) m/uL Hgb (13.0-17.5) gm/dL Hct (39.0-53.0) % MCHC (31.0-37.0) g/dL RDW (11.5-15.5) % APTT 70.9 H (22.0-30.0) sec Chloride (98-107) mmol/L Carbon Dioxide (22-30) mmol/L Glucose (74-99) mg/dL POC Glucose (mg/dL) (75-99) mg/dL Calcium (8.4-10.2) mg/dL Microbiology - Last 24 Hours (Table) 11/06/16 15:11 Blood Culture - Preliminary Blood No Growth after 72 hours 11/06/16 14:47 Blood Culture - Preliminary Blood No Growth after 72 hours 11/06/16 18:40 Urine Culture - Final Urine,Clean Catch Methicillin resist S. aureus Karina sp,not albicans/galbr 11/06/16 10:00 Gram Stain - Final Chest Wound Culture - Final Methicillin resist S. aureus Pseudomonas aeruginosa Laboratory Results WBC 4.8 k/uL (3.8-10.6) 11/09/16 08:38 RBC 2.84 m/uL (4.30-5.90) L 11/09/16 08:38 Hgb 8.2 gm/dL (13.0-17.5) L 11/09/16 08:38 Hct 26.8 % (39.0-53.0) L 11/09/16 08:38 MCV 94.3 fL (80.0-100.0) 11/09/16 08:38 MCH 28.8 pg (25.0-35.0) 11/09/16 08:38 MCHC 30.5 g/dL (31.0-37.0) L 11/09/16 08:38 RDW 17.1 % (11.5-15.5) H 11/09/16 08:38 Plt Count 386 k/uL (150-450) 11/09/16 08:38 Neutrophils % 53 % 11/09/16 08:38 Lymphocytes % 28 % 11/09/16 08:38 Monocytes % 5 % 11/09/16 08:38 Eosinophils % 11 % 11/09/16 08:38 Basophils % 0 % 11/09/16 08:38 Neutrophils # 2.5 k/uL (1.3-7.7) 11/09/16 08:38 Lymphocytes # 1.4 k/uL (1.0-4.8) 11/09/16 08:38 Monocytes # 0.3 k/uL (0-1.0) 11/09/16 08:38 Eosinophils # 0.5 k/uL (0-0.7) 11/09/16 08:38 Basophils # 0.0 k/uL (0-0.2) 11/09/16 08:38 Hypochromasia Marked 11/09/16 08:38 Anisocytosis Slight 11/09/16 08:38 PT 10.6 sec (9.0-12.0) 11/06/16 03:55 INR 1.1 (<1.1) 11/06/16 03:55 APTT 70.9 sec (22.0-30.0) H 11/09/16 16:37 Sodium 140 mmol/L (137-145) 11/09/16 08:38 Potassium 4.8 mmol/L (3.5-5.1) 11/09/16 08:38 Chloride 115 mmol/L (98-107) H 11/09/16 08:38 Carbon Dioxide 16 mmol/L (22-30) L 11/09/16 08:38 Anion Gap 9 mmol/L 11/09/16 08:38 BUN 18 mg/dL (9-20) 11/09/16 08:38 Creatinine 1.01 mg/dL (0.66-1.25) 11/09/16 08:38 Est GFR (MDRD) Af Amer >60 (>60 ml/min/1.73 sqM) 11/09/16 08:38 Est GFR (MDRD) Non-Af >60 (>60 ml/min/1.73 sqM) 11/09/16 08:38 Glucose 69 mg/dL (74-99) L 11/09/16 08:38 POC Glucose (mg/dL) 93 mg/dL (75-99) 11/09/16 17:25 POC Glu Planning Consultant ID Bren Talavera 11/09/16 17:25 Plasma Lactic Acid Ayo 0.8 mmol/L (0.7-2.0) 11/06/16 03:55 Calcium 8.2 mg/dL (8.4-10.2) L 11/09/16 08:38 Phosphorus 4.4 mg/dL (2.5-4.5) 11/06/16 03:55 Magnesium 1.8 mg/dL (1.6-2.3) 11/06/16 03:55 Total Bilirubin 0.5 mg/dL (0.2-1.3) 11/06/16 03:55 AST 46 U/L (17-59) 11/06/16 03:55 ALT 51 U/L (21-72) 11/06/16 03:55 Alkaline Phosphatase 110 U/L (38-126) 11/06/16 03:55 Total Creatine Kinase 754 U/L (55-170) H 11/06/16 15:24 CK-MB (CK-2) 5.9 ng/mL (0.0-2.4) H* 11/06/16 15:24 CK-MB (CK-2) Rel Index 0.8 11/06/16 15:24 Troponin I 1.220 ng/mL (0.000-0.034) H* 11/06/16 15:24 Total Protein 7.0 g/dL (6.3-8.2) 11/06/16 03:55 Albumin 3.5 g/dL (3.5-5.0) 11/06/16 03:55 Triglycerides 98 mg/dL (<150) 11/07/16 04:31 Cholesterol 87 mg/dL (<200) 11/07/16 04:31 LDL Cholesterol, Calc 36 mg/dL (0-99) 11/07/16 04:31 HDL Cholesterol 31 mg/dL (40-60) L 11/07/16 04:31 Urine Color Yellow 11/06/16 18:40 Urine Appearance Clear (Clear) 11/06/16 18:40 Urine pH 5.5 (5.0-8.0) 11/06/16 18:40 Ur Specific [place] 1.008 (1.001-1.035) 11/06/16 18:40 Urine Protein 1+ (Negative) H 11/06/16 18:40 Urine Glucose (UA) 2+ (Negative) H 11/06/16 18:40 Urine Ketones Negative (Negative) 11/06/16 18:40 Urine Blood Small (Negative) H 11/06/16 18:40 Urine Nitrate Negative (Negative) 11/06/16 18:40 Urine Bilirubin Negative (Negative) 11/06/16 18:40 Urine Urobilinogen <2.0 mg/dL (<2.0) 11/06/16 18:40 Ur Leukocyte Esterase Moderate (Negative) H 11/06/16 18:40 Urine RBC 5 /hpf (0-5) 11/06/16 18:40 Urine WBC 34 /hpf (0-5) H 11/06/16 18:40 Ur Squamous Epith Cells <1 /hpf (0-4) 11/06/16 18:40 Urine Mucus Rare /hpf (None) H 11/06/16 18:40 Urine Yeast (Budding) Few /hpf (None) H 11/06/16 18:40 Vancomycin Trough 7.0 ug/mL 11/09/16 08:38 Microbiology 11/06/16 15:11 Blood Blood Culture - Preliminary No Growth after 72 hours 11/06/16 14:47 Blood Blood Culture - Preliminary No Growth after 72 hours 11/06/16 18:40 Urine,Clean Catch Urine Culture - Final Methicillin resist S. aureus Karina sp,not albicans/galbr 11/06/16 10:00 Chest Gram Stain - Final 11/06/16 10:00 Chest Wound Culture - Final Methicillin resist S. aureus Pseudomonas aeruginosa Assessment and Plan (1) Decubitus ulcer of sacral region, stage 4 Narrative/Plan: 56-year-old male presents to hospital with likely methadone overuse. He also has a history of chronic medical noncompliance. It appears that he may be willing now go to extended care for ongoing therapy. Over sign himself out twice AMA in the recent past. We'll attempt further assurance from his primary care physician that he will go to extended care and stay there if we are to place another PICC line and continue his antibiotic therapy. He is currently on an air mattress overlay receiving local wound care to his coccyx ulceration and left sternal injury. The bilateral stumps will add in the treatment with the foam dressings. Antibiotic therapy as directed at MRSA and Pseudomonas that has been isolated and the vancomycin and meropenem continue. If the patient truly is going to send a care facility on the PICC line will need to be placed. Status: Acute (2) Anemia Status: Acute (3) Diabetic ulcer of right lower leg Status: Acute (4) Diabetic ulcer of left lower leg associated with diabetes mellitus due to underlying condition, with fat layer exposed Status: Acute
[2016-11-09] MEDS: QUEtiapine 200 MG TAB PO SCH (20:08)
[2016-11-09] MEDS: ACETAMINOPHEN TAB 325 MG TAB PO PRN (20:12)
[2016-11-09 21:05] LABS: Glucose,Whole Blood 102 mg/dL (75-99)
[2016-11-09] MEDS: INSULIN GLARGINE 100 UNIT/ML 10 ML VIAL SQ SCH (21:59)
[2016-11-10] MEDS: HEPARIN SODIUM,PORCINE/D5W PMX 25,000 UNIT in DEXTROSE/WATER 1 500ML.BAG IV SCH ×2 (00:45→17:22)
[2016-11-10] MEDS: METHADONE 10 MG TAB PO SCH ×4 (00:46→23:32)
[2016-11-10] MEDS: VANCOMYCIN 1,000 MG in SODIUM CHLORIDE 0.9% 250 ML IVPB SCH ×2 (00:46→16:29)
[2016-11-10] MEDS: NITROGLYCERIN OINT 1 INCH/GM PACKET TOPICAL SCH ×4 (00:50→23:31)
[2016-11-10 06:56] LABS: Glucose,Whole Blood 87 mg/dL (75-99)
[2016-11-10] MEDS ORDERED: VANCOMYCIN TROUGH DUE 1 EACH MISC MISCELLANE ONE (08:00)
[2016-11-10] MEDS: MEROPENEM 1 GM in SODIUM CHLORIDE 0.9% 100 ML IVPB SCH ×2 (09:59→21:23)
[2016-11-10] MEDS: hydrALAZINE HCL 50 MG TAB PO SCH ×2 (09:59→21:24)
[2016-11-10] MEDS: PANTOPRAZOLE 40 MG TABLET PO SCH (10:00)
[2016-11-10] MEDS: CARVEDILOL 6.25 MG TAB PO SCH ×2 (10:00→16:30)
[2016-11-10] MEDS: ASPIRIN 325 MG TAB PO SCH (10:00)
[2016-11-10] MEDS: GABAPENTIN 300 MG CAP PO SCH ×3 (10:00→21:24)
[2016-11-10] MEDS: DULoxetine HCL 30 MG CAPSULE.DR PO SCH ×2 (10:00→21:24)
[2016-11-10] MEDS: INSULIN LISPRO (humaLOG) 300 UNIT/3 ML VIAL SQ SCH ×5 (10:01→21:34)
[2016-11-10] MEDS: ATORVASTATIN 80 MG TAB PO SCH (10:01)
[2016-11-10 10:18] LABS: Anisocytosis Slight; Basophils % (A) 1 %; CHCM 31.1; Eosinophils # (A) 0.6 k/uL (0-0.7); Eosinophils % (A) 13 %; HCT 29.4 % (39.0-53.0); HGB 9.2 gm/dL (13.0-17.5); Hypochromasia Moderate; Luc # (Auto) 0.09; Luc % (Auto) 2; Lymphocytes # (A) 1.1 k/uL (1.0-4.8); Lymphocytes % (A) 23 %; MCH 29.3 pg (25.0-35.0); MCHC 31.3 g/dL (31.0-37.0); MCV 93.8 fL (80.0-100.0); Mean Platelet Volume 7.9; Monocytes # (A) 0.2 k/uL (0-1.0); Monocytes % (A) 5 %; Neutrophils # (A) 2.8 k/uL (1.3-7.7); Neutrophils % (A) 58 %; RBC 3.13 m/uL (4.30-5.90); WBC 4.9 k/uL (3.8-10.6); WBC (Perox) 4.97
[2016-11-10 10:34] VITALS: BMI 18.4
[2016-11-10] MEDS: SODIUM CHLORIDE 0.9% 1,000 ML IV SCH ×2 (10:46→17:33)
[2016-11-10 10:50] LABS: Anion Gap 9 mmol/L; Blood Urea Nitrogen 22 mg/dL (9-20); Calcium 8.1 mg/dL (8.4-10.2); Carbon Dioxide 17 mmol/L (22-30); Chloride 112 mmol/L (98-107); Glucose 159 mg/dL (74-99); Non-African American GFR(MDRD) >60 (>60 ml/min/1.73 sqM); Potassium 5.1 mmol/L (3.5-5.1); Sodium 138 mmol/L (137-145)
[2016-11-10 12:22] LABS: Glucose,Whole Blood 153 mg/dL (75-99)
--- NOTE | 2016-11-10 12:56 | P.PN ---
Subjective Principal diagnosis: Sacral decubitus ulcer Patient is a 56-year-old male patient treated outpatient by Dr. Chong with past medical history significant for coronary artery disease, COPD, diabetes mellitus, GERD, GI bleed, hypertension, chronic back pain, hepatitis C, history of IV drug abuse, bullous lung disease, chronic anemia, and chronic stage IV pressure ulcer to his coccyx. Patient was recently admitted to the hospital from 10/13/2016 through 10/19/2016 where he had presented with profound anemia and was being treated for infection of decubitus sacral ulcer. Patient was eventually discharged to [facility] on IV antibiotics and subsequently discharged home. Patient presented to the emergency department via EMS for evaluation of syncopal event and decreased level of consciousness. Chest x-ray with evidence of nodular areas in the right lung probably scarring with chronic changes. CAT scan of the brain showed no acute findings with mild atrophic changes. Admission lab work: WBC 5.7, hemoglobin 8.7, potassium 5.3, glucose 370, troponins 1.8, 1.4, and 1.2. Patient was admitted to the intensive care unit with consults to infectious disease service, cardiology, and surgical service. Patient admits to taking more than prescribed doses of methadone for uncontrolled pain prior to admission. Patient is currently examined on the medical floor. Patient states his pain is controlled. Denies chills, fevers, nausea, vomiting, shortness of breath, chest pain, or abdominal pain. Patient reports good appetite. Afebrile. Urine cultures positive for MRSA and Karina species. Gram stain wound culture from chest positive for MRSA and Pseudomonas aeruginosa. Patient continues on IV antibiotics in the form of vancomycin and Merrem per infectious disease service. Patient also continues on IV heparin for abnormal cardiac enzymes per cardiology. Objective - Vital Signs Vital signs: Vital Signs Temp 98.9 F 11/10/16 07:00 Pulse 79 11/10/16 07:00 Resp 16 11/10/16 07:00 BP 133/78 11/10/16 07:00 Pulse Ox 96 11/10/16 07:00 Intake & Output 11/09/16 11/10/16 11/10/16 18:59 06:59 18:59 Intake Total 303.471 8359.007 313.377 Output Total 1600 2100 Balance -1271.389 -877.993 313.377 Weight 51.9 kg Intake: Intake, IV Titration 328.611 202.007 313.377 Amount Heparin Sodium,Porcine/ 328.611 202.007 313.377 D5w Pmx 25,000 unit In Dextrose/Water 1 500ml. bag @ 12 UNITS/KG/HR 11. 71 mls/hr IV .Q24H [facility] Rx #:[id number] Oral 1020 Output: Urine 1600 2100 Other: Voiding Method Urinal Urinal - Exam GENERAL: Pt is awake and alert, thin, in no apparent distress. HEAD: Normocephalic. Abrasion to right cheek. EYES: Pupils equal and round. Sclera anicteric, conjunctiva are normal. ENT: Moist mucous membranes. NECK:Supple without lymphadenopathy or JVD. LUNGS: Breath sounds diminished to auscultation bilaterally. HEART: Heart S1, S2, no S3 or S4. Regular rate and rhythm. No murmurs, rubs or gallops. ABDOMEN: Soft, nontender, nondistended, normoactive bowel sounds. No guarding, no rebound. No masses or organomegaly appreciated. EXTREMITIES: Bilateral lower BKA. Once to bilateral lateral surfaces of both stumps. NEUROLOGICAL: Pt oriented x 3. No focal deficits. PSYCH: Calm. SKIN: Warm, dry. Large sacral decubitus ulcer, please see nursing documentation for picture and wound measurements. Dressing to left chest wound dry and intact. - Labs CBC & Chem 7: 11/10/16 09:35 11/10/16 09:35 Labs: Abnormal Lab Results - Last 24 Hours (Table) 11/09/16 11/09/16 11/10/16 Range/Units 16:37 20:55 09:35 RBC (4.30-5.90) m/uL Hgb (13.0-17.5) gm/dL Hct (39.0-53.0) % RDW (11.5-15.5) % APTT 70.9 H (22.0-30.0) sec Chloride 112 H (98-107) mmol/L Carbon Dioxide 17 L (22-30) mmol/L BUN 22 H (9-20) mg/dL Glucose 159 H (74-99) mg/dL POC Glucose (mg/dL) 102 H (75-99) mg/dL Calcium 8.1 L (8.4-10.2) mg/dL 11/10/16 11/10/16 11/10/16 Range/Units 09:35 09:35 12:20 RBC 3.13 L (4.30-5.90) m/uL Hgb 9.2 L (13.0-17.5) gm/dL Hct 29.4 L (39.0-53.0) % RDW 17.0 H (11.5-15.5) % APTT 48.4 H (22.0-30.0) sec Chloride (98-107) mmol/L Carbon Dioxide (22-30) mmol/L BUN (9-20) mg/dL Glucose (74-99) mg/dL POC Glucose (mg/dL) 153 H (75-99) mg/dL Calcium (8.4-10.2) mg/dL Microbiology - Last 24 Hours (Table) 11/06/16 15:11 Blood Culture - Preliminary Blood No Growth after 72 hours 11/06/16 14:47 Blood Culture - Preliminary Blood No Growth after 72 hours 11/06/16 18:40 Urine Culture - Final Urine,Clean Catch Methicillin resist S. aureus Karina sp,not albicans/galbr 11/06/16 10:00 Gram Stain - Final Chest Wound Culture - Final Methicillin resist S. aureus Pseudomonas aeruginosa Assessment and Plan Plan: Impression and plan: 1. Metabolic encephalopathy suspect secondary to sepsis with a urinary cultures positive for MRSA and Karina and wound culture positive for MRSA and Pseudomonas aeruginosa and possible overuse of methadone. 2. Elevated troponins suspect secondary to acute non-ST elevated myocardial infarction. Cardiology has seen and evaluated patient, recommendations noted. Continue IV heparin. 3. Acute kidney injury, present on admission, resolved. 4. Stage IV sacral decubitus ulcer. Infectious disease has seen and evaluated patient, recommendations noted. Continue IV antibiotics and local wound care. 5. Insulin-dependent diabetes mellitus, uncontrolled. Continue Lantus 40 units subcu at bedtime, continue Humalog sliding scale. 6. Coronary artery disease. Most recent echocardiogram with preserved LV function with EF 55-60%. Continue aspirin. 7. Anemia suspect secondary to acute blood loss and chronic disease. Most recent EGD findings of mild antral gastritis and mild esophagitis with no evidence of upper GI bleed. Recent colonoscopy with no evidence of active bleed. 8. Wound to left chest with cultures positive for MRSA and Pseudomonas Aeruginosa. Continue IV antibiotics and local wound care. 9. History of bilateral AKA. 10. Chronic pain syndrome. 11. History of heroin abuse. 12. History of nicotine dependence. 13. Medical debility. Continue to monitor patient. Continue current medications. Continue to follow with consults. Maintain fall and aspiration precautions. Continue GI and DVT prophylaxis. Consult social work for subacute rehab placement. Repeat CBC and BMP in a.m. The above impression and plan have been discussed and directed by Dr. Barcenas. Yolanda MEDRANO acting as scribe for Dr. Barcenas.
[2016-11-10 16:57] LABS: Glucose,Whole Blood 141 mg/dL (75-99)
--- NOTE | 2016-11-10 19:39 | P.PN ---
Subjective Principal diagnosis: Pressure ulcers This is a 56-year-old male who is well-known to ID service as he has been seen on multiple occasions for lower extremity and coccyx wound infections. Patient was last seen by infectious disease in April 2016 at which time he was treated for coccyx decubitus ulcer stage IV and had a PICC line placed and was discharged on Unasyn 3 g every 6 hours for 28 days. He also had a Cardoza grade 2 diabetic ulcer to the right below the knee amputation. Patient was subsequently admitted June 12 at which time he underwent a right [id number] amputation with Dr. Stout. Pathology was positive for osteomyelitis. He was discharged with PICC line in place and Rocephin for a 10 day course. Patient was apparently discharged [facility] and discharged to home which is an apartment at [facility]. [facility] under the care of Dr. Chong initially on August 17 and underwent coccyx wound debridement. Patient was to return on a weekly basis but missed 3 appointments due to transportation issues and a second appointment was on September 17. He also underwent an I&D of the coccyx wound at that time. Local wound care in the form of Hydrofera Blue. He was found at home with mental status changes and complaining of back pain. He was brought into [facility] emergency center for evaluation. WBC 8.0, GFR greater than 60, hemoglobin A1c 8.6, albumin 3.5. Urinalysis was clear, nitrite negative, leukoesterase trace. Urine culture is in progress. Blood culture is status received. Buttocks culture showing gram-positive cocci in clusters. he has been started on vancomycin and Zosyn with concern for osteomyelitis. He has had previous imaging done on the area in June with CAT scan that showed soft tissue changes in the right posterior sacral region with increased density within the soft tissue extends into the osseous structures. Abscess not identified although infection not excluded. Patient had a polymicrobial infection noted of his sacrum during his stay. Antibiotic therapy at discharge was Zosyn and vancomycin. He again was admitted from October 13 through October 19 at which time he was treated for sacral decubitus ulcer. MRI was done did not show evidence of osteomyelitis. Patient was discharged on meropenem and vancomycin to [facility]. Patient now returns to [facility] emergency center due to altered mental status. Patient was brought in by EMS for possible near syncopal episode patient was found to be extremely weak with change in mental status. Chest x-ray showed nodular areas in the right lung probably scarring with chronic changes. CAT scan of the brain showed no acute findings with mild atrophic changes. Patient was noted to be afebrile with white count of 5.7, hemoglobin 8.7. Potassium 5.3 and BUN 42 with creatinine 2.30. CK was 1010. Troponins were 1.840 and 1.420. Patient was noted to have a wound to the left clavicle and right cheek for which apparently he fell out of his scooter. Information passed on through nursing staff as the patient was living at home and was found covered in stool. He also has admitted to staff that he has been taking more than his prescribed methadone for pain control at home. He has multiple consults in place including cardiology. Patient is now somewhat improved. He does have multiple ulcerations in the Appears to be new lesions on his bilateral stumps. Objective - Vital Signs Vital signs: Vital Signs Temp 97.9 F 11/10/16 15:00 Pulse 81 11/10/16 15:00 Resp 16 11/10/16 15:00 BP 139/81 11/10/16 15:00 Pulse Ox 96 11/10/16 15:00 Intake & Output 11/10/16 11/10/16 11/11/16 06:59 18:59 06:59 Intake Total 1222.007 500.000 Output Total 2100 1400 Balance -877.993 -900.000 Weight 51.9 kg Intake: Intake, IV Titration 202.007 500.000 Amount Heparin Sodium,Porcine/ 202.007 500.000 D5w Pmx 25,000 unit In Dextrose/Water 1 500ml. bag @ 12 UNITS/KG/HR 11. 71 mls/hr IV .Q24H ROSA Rx #:[id number] Oral 1020 Output: Urine 2100 1400 Other: Voiding Method Urinal - Exam This is a 56-year-old emaciated male. He is seen in the intensive care unit. He has very minimal response to verbal stimuli. Voice is mumbled and unable to understand speech. HEENT: Head is normocephalic. Large abrasion to the right cheek. Pupils equal , round. Sclerae is anicteric. Mucous membranes of the mouth are dry. Dentition is in poor order. NECK: Supple. No JVD. No lymphadenopathy. No thyromegaly. Wound to the left clavicle with surrounding erythema. LUNGS: Coarse sounds bilaterally with poor inspiratory effort. No intercostal retractions. HEART: Regular rate and rhythm. No murmur. ABDOMEN: Soft. Bowel sounds are present. No masses. No tenderness. EXTREMITIES: Bilateral lower extremity amputations noted. Wounds to the bilateral lateral surfaces of both stump are noted Large sacral decubitus ulcer. NEUROLOGICAL: Patient is now much more awake and alert follow some simple commands. Is still somewhat lethargic. - Labs CBC & Chem 7: 11/10/16 09:35 11/10/16 09:35 Labs: Abnormal Lab Results - Last 24 Hours (Table) 11/09/16 11/10/16 11/10/16 Range/Units 20:55 09:35 09:35 RBC (4.30-5.90) m/uL Hgb (13.0-17.5) gm/dL Hct (39.0-53.0) % RDW (11.5-15.5) % APTT 48.4 H (22.0-30.0) sec Chloride 112 H (98-107) mmol/L Carbon Dioxide 17 L (22-30) mmol/L BUN 22 H (9-20) mg/dL Glucose 159 H (74-99) mg/dL POC Glucose (mg/dL) 102 H (75-99) mg/dL Calcium 8.1 L (8.4-10.2) mg/dL 11/10/16 11/10/16 11/10/16 Range/Units 09:35 12:20 16:56 RBC 3.13 L (4.30-5.90) m/uL Hgb 9.2 L (13.0-17.5) gm/dL Hct 29.4 L (39.0-53.0) % RDW 17.0 H (11.5-15.5) % APTT (22.0-30.0) sec Chloride (98-107) mmol/L Carbon Dioxide (22-30) mmol/L BUN (9-20) mg/dL Glucose (74-99) mg/dL POC Glucose (mg/dL) 153 H 141 H (75-99) mg/dL Calcium (8.4-10.2) mg/dL Microbiology - Last 24 Hours (Table) 11/06/16 15:11 Blood Culture - Preliminary Blood No Growth after 96 hours 11/06/16 14:47 Blood Culture - Preliminary Blood No Growth after 96 hours 11/06/16 18:40 Urine Culture - Final Urine,Clean Catch Methicillin resist S. aureus Karina sp,not albicans/galbr Laboratory Results WBC 4.9 k/uL (3.8-10.6) 11/10/16 09:35 RBC 3.13 m/uL (4.30-5.90) L 11/10/16 09:35 Hgb 9.2 gm/dL (13.0-17.5) L 11/10/16 09:35 Hct 29.4 % (39.0-53.0) L 11/10/16 09:35 MCV 93.8 fL (80.0-100.0) 11/10/16 09:35 MCH 29.3 pg (25.0-35.0) 11/10/16 09:35 MCHC 31.3 g/dL (31.0-37.0) 11/10/16 09:35 RDW 17.0 % (11.5-15.5) H 11/10/16 09:35 Plt Count 388 k/uL (150-450) 11/10/16 09:35 Neutrophils % 58 % 11/10/16 09:35 Lymphocytes % 23 % 11/10/16 09:35 Monocytes % 5 % 11/10/16 09:35 Eosinophils % 13 % 11/10/16 09:35 Basophils % 1 % 11/10/16 09:35 Neutrophils # 2.8 k/uL (1.3-7.7) 11/10/16 09:35 Lymphocytes # 1.1 k/uL (1.0-4.8) 11/10/16 09:35 Monocytes # 0.2 k/uL (0-1.0) 11/10/16 09:35 Eosinophils # 0.6 k/uL (0-0.7) 11/10/16 09:35 Basophils # 0.0 k/uL (0-0.2) 11/10/16 09:35 Hypochromasia Moderate 11/10/16 09:35 Anisocytosis Slight 01/10/17 09:35 PT 10.6 sec (9.0-12.0) 11/06/16 03:55 INR 1.1 (<1.1) 11/06/16 03:55 APTT 48.4 sec (22.0-30.0) H 11/10/16 09:35 Sodium 138 mmol/L (137-145) 11/10/16 09:35 Potassium 5.1 mmol/L (3.5-5.1) 11/10/16 09:35 Chloride 112 mmol/L (98-107) H 11/10/16 09:35 Carbon Dioxide 17 mmol/L (22-30) L 11/10/16 09:35 Anion Gap 9 mmol/L 11/10/16 09:35 BUN 22 mg/dL (9-20) H 11/10/16 09:35 Creatinine 1.01 mg/dL (0.66-1.25) 11/10/16 09:35 Est GFR (MDRD) Af Amer >60 (>60 ml/min/1.73 sqM) 11/10/16 09:35 Est GFR (MDRD) Non-Af >60 (>60 ml/min/1.73 sqM) 11/10/16 09:35 Glucose 159 mg/dL (74-99) H 11/10/16 09:35 POC Glucose (mg/dL) 141 mg/dL (75-99) H 11/10/16 16:56 POC Glu Senior Consultant ID Andria Elder 11/10/16 16:56 Plasma Lactic Acid Ayo 0.8 mmol/L (0.7-2.0) 11/06/16 03:55 Calcium 8.1 mg/dL (8.4-10.2) L 11/10/16 09:35 Phosphorus 4.4 mg/dL (2.5-4.5) 11/06/16 03:55 Magnesium 1.8 mg/dL (1.6-2.3) 11/06/16 03:55 Total Bilirubin 0.5 mg/dL (0.2-1.3) 11/06/16 03:55 AST 46 U/L (17-59) 11/06/16 03:55 ALT 51 U/L (21-72) 11/06/16 03:55 Alkaline Phosphatase 110 U/L (38-126) 11/06/16 03:55 Total Creatine Kinase 754 U/L (55-170) H 11/06/16 15:24 CK-MB (CK-2) 5.9 ng/mL (0.0-2.4) H* 11/06/16 15:24 CK-MB (CK-2) Rel Index 0.8 11/06/16 15:24 Troponin I 1.220 ng/mL (0.000-0.034) H* 11/06/16 15:24 Total Protein 7.0 g/dL (6.3-8.2) 11/06/16 03:55 Albumin 3.5 g/dL (3.5-5.0) 11/06/16 03:55 Triglycerides 98 mg/dL (<150) 11/07/16 04:31 Cholesterol 87 mg/dL (<200) 11/07/16 04:31 LDL Cholesterol, Calc 36 mg/dL (0-99) 11/07/16 04:31 HDL Cholesterol 31 mg/dL (40-60) L 11/07/16 04:31 Urine Color Yellow 11/06/16 18:40 Urine Appearance Clear (Clear) 11/06/16 18:40 Urine pH 5.5 (5.0-8.0) 11/06/16 18:40 Ur Specific [place] 1.008 (1.001-1.035) 11/06/16 18:40 Urine Protein 1+ (Negative) H 11/06/16 18:40 Urine Glucose (UA) 2+ (Negative) H 11/06/16 18:40 Urine Ketones Negative (Negative) 11/06/16 18:40 Urine Blood Small (Negative) H 11/06/16 18:40 Urine Nitrate Negative (Negative) 11/06/16 18:40 Urine Bilirubin Negative (Negative) 11/06/16 18:40 Urine Urobilinogen <2.0 mg/dL (<2.0) 11/06/16 18:40 Ur Leukocyte Esterase Moderate (Negative) H 11/06/16 18:40 Urine RBC 5 /hpf (0-5) 11/06/16 18:40 Urine WBC 34 /hpf (0-5) H 11/06/16 18:40 Ur Squamous Epith Cells <1 /hpf (0-4) 11/06/16 18:40 Urine Mucus Rare /hpf (None) H 11/06/16 18:40 Urine Yeast (Budding) Few /hpf (None) H 11/06/16 18:40 Vancomycin Trough 7.0 ug/mL 11/09/16 08:38 Microbiology 11/06/16 15:11 Blood Blood Culture - Preliminary No Growth after 96 hours 11/06/16 14:47 Blood Blood Culture - Preliminary No Growth after 96 hours 11/06/16 18:40 Urine,Clean Catch Urine Culture - Final Methicillin resist S. aureus Karina sp,not albicans/galbr 11/06/16 10:00 Chest Gram Stain - Final 11/06/16 10:00 Chest Wound Culture - Final Methicillin resist S. aureus Pseudomonas aeruginosa Assessment and Plan (1) Decubitus ulcer of sacral region, stage 4 Narrative/Plan: 56-year-old male presents to hospital with likely methadone overuse. He also has a history of chronic medical noncompliance. It appears that he may be willing now go to extended care for ongoing therapy. Over sign himself out twice AMA in the recent past. We'll attempt further assurance from his primary care physician that he will go to extended care and stay there if we are to place another PICC line and continue his antibiotic therapy. He is currently on an air mattress overlay receiving local wound care to his coccyx ulceration and left sternal injury. The bilateral stumps will add in the treatment with the foam dressings. Antibiotic therapy is directed at MRSA and Pseudomonas that has been isolated and the vancomycin and meropenem continue. PICC line has been requested for accesses for antibiotic therapy at subacute rehab. Status: Acute (2) Anemia Status: Acute (3) Diabetic ulcer of right lower leg Status: Acute (4) Diabetic ulcer of left lower leg associated with diabetes mellitus due to underlying condition, with fat layer exposed Status: Acute
[2016-11-10] MEDS: QUEtiapine 200 MG TAB PO SCH (21:24)
[2016-11-10] MEDS: INSULIN GLARGINE 100 UNIT/ML 10 ML VIAL SQ SCH (21:24)
[2016-11-10] MEDS: ACETAMINOPHEN TAB 325 MG TAB PO PRN (21:27)
[2016-11-10 21:35] LABS: Glucose,Whole Blood 80 mg/dL (75-99)
[2016-11-11 02:10] LABS: Glucose,Whole Blood 153 mg/dL (75-99)
[2016-11-11] MEDS: HEPARIN SODIUM,PORCINE/D5W PMX 25,000 UNIT in DEXTROSE/WATER 1 500ML.BAG IV SCH (04:20)
[2016-11-11] MEDS: SODIUM CHLORIDE 0.9% 1,000 ML IV SCH ×2 (04:21→17:13)
[2016-11-11 07:16] LABS: Glucose,Whole Blood 134 mg/dL (75-99)
[2016-11-11] MEDS: METHADONE 10 MG TAB PO SCH ×2 (07:37→15:58)
[2016-11-11] MEDS: INSULIN LISPRO (humaLOG) 300 UNIT/3 ML VIAL SQ SCH ×4 (07:38→21:32)
[2016-11-11] MEDS: hydrALAZINE HCL 50 MG TAB PO SCH ×3 (07:38→21:23)
[2016-11-11] MEDS: GABAPENTIN 300 MG CAP PO SCH ×3 (07:38→21:23)
[2016-11-11] MEDS: MEROPENEM 1 GM in SODIUM CHLORIDE 0.9% 100 ML IVPB SCH ×2 (07:38→16:00)
[2016-11-11] MEDS: DULoxetine HCL 30 MG CAPSULE.DR PO SCH ×2 (07:39→21:22)
[2016-11-11] MEDS: ATORVASTATIN 80 MG TAB PO SCH (07:39)
[2016-11-11] MEDS: PANTOPRAZOLE 40 MG TABLET PO SCH (07:39)
[2016-11-11] MEDS: CARVEDILOL 6.25 MG TAB PO SCH ×2 (07:39→17:15)
[2016-11-11] MEDS: NITROGLYCERIN OINT 1 INCH/GM PACKET TOPICAL SCH (07:39)
[2016-11-11] MEDS: VANCOMYCIN 1,000 MG in SODIUM CHLORIDE 0.9% 250 ML IVPB SCH (07:44)
[2016-11-11 08:11] LABS: Anion Gap 8 mmol/L; Blood Urea Nitrogen 21 mg/dL (9-20); Calcium 8.6 mg/dL (8.4-10.2); Carbon Dioxide 18 mmol/L (22-30); Chloride 113 mmol/L (98-107); Glucose 121 mg/dL (74-99); Non-African American GFR(MDRD) >60 (>60 ml/min/1.73 sqM); Potassium 4.9 mmol/L (3.5-5.1); Sodium 139 mmol/L (137-145)
[2016-11-11] MEDS: ACETAMINOPHEN TAB 325 MG TAB PO PRN (11:24)
[2016-11-11] MEDS ORDERED: LIDOCAINE 2% INJ 20 MG/ML SQ ONE (13:54)
--- NOTE | 2016-11-11 13:56 | P.PN ---
Subjective Principal diagnosis: Patient is a 56-year-old male patient treated outpatient by Dr. Chong with past medical history significant for coronary artery disease, COPD, diabetes mellitus, GERD, GI bleed, hypertension, chronic back pain, hepatitis C, history of IV drug abuse, bullous lung disease, chronic anemia, and chronic stage IV pressure ulcer to his coccyx. Patient was recently admitted to the hospital from 10/13/2016 through 10/19/2016 where he had presented with profound anemia and was being treated for infection of decubitus sacral ulcer. Patient was eventually discharged to [facility] on IV antibiotics and subsequently discharged home. Patient presented to the emergency department via EMS for evaluation of syncopal event and decreased level of consciousness. Chest x-ray with evidence of nodular areas in the right lung probably scarring with chronic changes. CAT scan of the brain showed no acute findings with mild atrophic changes. Patient was noted to be afebrile with white count of 5.7, hemoglobin 8.7. Potassium 5.3 and BUN 42 with creatinine 2.30. CK was 1010. Troponins were 1.840 and 1.420. Patient was noted to have a wound to the left clavicle and right cheek for which apparently he fell out of his scooter. Patient also had new lesions to his bilateral stumps. Patient was admitted to the intensive care unit with consults to infectious disease service, cardiology , and surgical service. Patient admits to taking more than prescribed doses of methadone for uncontrolled pain prior to admission. Patient is currently examined on the medical floor. Patient states his pain is controlled. Denies chills, fevers, nausea, vomiting, shortness of breath, chest pain, or abdominal pain. Patient reports good appetite. Afebrile. Urine cultures positive for MRSA and Karina species. Gram stain wound culture from chest positive for MRSA and Pseudomonas aeruginosa. Patient continues on IV antibiotics in the form of vancomycin and Merrem per infectious disease service. Patient also continues on IV heparin for abnormal cardiac enzymes per cardiology. Patient is scheduled to have a PICC line inserted and tentatively be discharged to [facility] tomorrow. Objective - Vital Signs Vital signs: Vital Signs Temp 97.6 F 11/11/16 07:00 Pulse 72 11/11/16 07:00 Resp 14 11/11/16 07:00 BP 159/89 11/11/16 07:00 Pulse Ox 95 11/11/16 07:00 Intake & Output 11/10/16 11/11/16 11/11/16 18:59 06:59 18:59 Intake Total 500.000 399.572 Output Total 1400 1400 1000 Balance -900.000 -1000.428 -1000 Weight 51.9 kg Intake: Intake, IV Titration 500.000 399.572 Amount Heparin Sodium,Porcine/ 500.000 399.572 D5w Pmx 25,000 unit In Dextrose/Water 1 500ml. bag @ 12 UNITS/KG/HR 11. 71 mls/hr IV .Q24H ROSA Rx #:[id number] Output: Urine 1400 1400 1000 Other: Voiding Method Urinal Urinal Urinal - Exam GENERAL: Pt is awake and alert, thin, in no apparent distress. HEAD: Normocephalic. Abrasion to right cheek, improving. EYES: Pupils equal and round. Sclera anicteric, conjunctiva are normal. ENT: Moist mucous membranes. NECK:Supple without lymphadenopathy or JVD. LUNGS: Breath sounds diminished to auscultation bilaterally. HEART: Heart S1, S2, no S3 or S4. Regular rate and rhythm. No murmurs, rubs or gallops. ABDOMEN: Soft, nontender, nondistended, normoactive bowel sounds. No guarding, no rebound. No masses or organomegaly appreciated. EXTREMITIES: Bilateral lower BKA. Wound to bilateral lateral surfaces of both stumps. NEUROLOGICAL: Pt oriented x 3. No focal deficits. PSYCH: Calm. SKIN: Warm, dry. Large sacral decubitus ulcer, please see nursing documentation for picture and wound measurements. Dressing to left chest wound dry and intact. - Labs CBC & Chem 7: 11/10/16 09:35 11/11/16 07:33 Labs: Abnormal Lab Results - Last 24 Hours (Table) 11/10/16 11/11/16 11/11/16 Range/Units 16:56 02:08 07:08 APTT (22.0-30.0) sec Chloride (98-107) mmol/L Carbon Dioxide (22-30) mmol/L BUN (9-20) mg/dL Glucose (74-99) mg/dL POC Glucose (mg/dL) 141 H 153 H 134 H (75-99) mg/dL 11/11/16 11/11/16 Range/Units 07:33 07:33 APTT 31.3 H (22.0-30.0) sec Chloride 113 H (98-107) mmol/L Carbon Dioxide 18 L (22-30) mmol/L BUN 21 H (9-20) mg/dL Glucose 121 H (74-99) mg/dL POC Glucose (mg/dL) (75-99) mg/dL Microbiology - Last 24 Hours (Table) 11/06/16 15:11 Blood Culture - Preliminary Blood No Growth after 96 hours 11/06/16 14:47 Blood Culture - Preliminary Blood No Growth after 96 hours Assessment and Plan Plan: Impression and plan: 1. Metabolic encephalopathy suspect secondary to sepsis with a urinary cultures positive for MRSA and Karina and wound culture positive for MRSA and Pseudomonas aeruginosa and possible overuse of methadone. 2. Elevated troponins suspect secondary to acute non-ST elevated myocardial infarction. Cardiology has seen and evaluated patient, recommendations noted. Continue IV heparin. 3. Acute kidney injury, present on admission, resolved. 4. Stage IV sacral decubitus ulcer. Infectious disease has seen and evaluated patient, recommendations noted. Continue IV antibiotics and local wound care. 5. Insulin-dependent diabetes mellitus, uncontrolled. Continue Lantus 40 units subcu at bedtime, continue Humalog sliding scale. 6. Coronary artery disease. Most recent echocardiogram with preserved LV function with EF 55-60%. Continue aspirin. 7. Anemia suspect secondary to acute blood loss and chronic disease. Most recent EGD findings of mild antral gastritis and mild esophagitis with no evidence of upper GI bleed. Recent colonoscopy with no evidence of active bleed. 8. Wound to left chest with cultures positive for MRSA and Pseudomonas Aeruginosa. Continue IV antibiotics and local wound care. 9. History of bilateral AKA. 10. Chronic pain syndrome. 11. History of heroin abuse. 12. History of nicotine dependence. 13. Medical debility. Continue to monitor patient. Continue current medications. Will talk to cardiology whether patient is to be continued on IV heparin and Nitropaste. Patient is scheduled for PICC line in a.m. Continue to follow with consults. Maintain fall and aspiration precautions. Continue GI and DVT prophylaxis. Patient potential transfer to [facility] tomorrow if cleared by cardiology and infectious disease service. Repeat CBC and BMP in a.m. The above impression and plan have been discussed and directed by Dr. Swapnaey. Yolanda MEDRANO acting as scribe for Dr. Barcenas.
--- NOTE | 2016-11-11 15:25 | IR ---
PICC LINE PLACEMENT: HISTORY: Infection requiring long-term antibiotic therapy PROCEDURE: Ultrasound and fluoroscopic guidance of PICC line placement. COMPLICATIONS: None ANESTHESIA: 1. 1% Lidocaine locally. FINDINGS/TECHNIQUE: The procedure was explained to the patient. The risks, complications, benefits and alternatives were discussed and any questions were answered. Informed consent was obtained. The patient was placed supine on the fluoroscopic table and prepped and draped in the usual sterile fash ion. Utilizing a 21 gauge needle and sonographic and fluoroscopic guidance, access in the right bas ilic vein was achieved and there is placement of a 0.018 guidewire. The vein is patent. A 4-F. Ferraro th was placed over the guidewire. The guidewire and dilator were removed and a 4-F. PICC line was pl aced through the sheath with the tip at the level of the SVC. The sheath was removed, the catheter w as flushed and sutured into position. The patient was stable throughout the procedure and remained s table upon discharge from the Department of Radiology. The vein puncture was patent under ultrasound. A sheppard scale image was obtained to document patency of the vein punctured. All elements of the maximal barrier technique were utilized. FLUOROSCOPY TIME: 0.2 minute IMPRESSION: Successful PICC line placement under ultrasound and fluoroscopic guidance.
[2016-11-11] MEDS ORDERED: ASPIRIN 81 MG CHEW PO SCH (15:54)
[2016-11-11] MEDS: NICOTINE 21MG/24HR PATCH TRANSDERM SCH (15:59)
--- NOTE | 2016-11-11 16:55 | PN ---
This patient is a 56-year-old male seen, evaluated, examined; clinically doing well, awake and alert. Patient is scheduled for a PICC line. Hemodynamic status is stable. His last set of vitals includes blood pressure of 160/90, respiratory rate 14, pulse 72, temperature 97, saturation 95% to 96%. HEENT: Unremarkable. NECK: Supple. LUNGS: Good air entry bilaterally. HEART: Regular rate, rhythm. ABDOMEN: Soft. NEUROLOGICAL EXAMINATION: Awake and alert. Medications reviewed. Laboratory data reviewed as well. The PTT is 31.3. Sodium is 139, potassium 4.9. BUN and creatinine are 21 and 0.86. IMPRESSION: 1. Sacral decubitus ulcer. 2. Lung nodules. 3. Acute on chronic renal failure, stage III to IV. 4. Diabetic foot ulcer. 5. Peripheral artery disease, status post bilateral above-knee amputation. PLAN: As above. Continue supportive care. Altered mental status has improved significantly. Patient likely will be placed in ECF. Will follow.
[2016-11-11 16:57] LABS: Glucose,Whole Blood 234 mg/dL (75-99)
[2016-11-11] MEDS: ISOSORBIDE MONONITRATE ER 30 MG TAB.ER.24H PO SCH (17:14)
[2016-11-11] MEDS: ASPIRIN 325 MG TAB PO SCH (17:53)
[2016-11-11] MEDS: QUEtiapine 200 MG TAB PO SCH (21:23)
[2016-11-11 21:28] LABS: Glucose,Whole Blood 199 mg/dL (75-99)
[2016-11-11] MEDS: INSULIN GLARGINE 100 UNIT/ML 10 ML VIAL SQ SCH (21:32)
--- NOTE | 2016-11-11 22:34 | P.PN ---
Subjective Principal diagnosis: Pressure ulcers This is a 56-year-old male who is well-known to ID service as he has been seen on multiple occasions for lower extremity and coccyx wound infections. Patient was last seen by infectious disease in April 2016 at which time he was treated for coccyx decubitus ulcer stage IV and had a PICC line placed and was discharged on Unasyn 3 g every 6 hours for 28 days. He also had a Cardoza grade 2 diabetic ulcer to the right below the knee amputation. Patient was subsequently admitted June 12 at which time he underwent a right [id number] amputation with Dr. Stout. Pathology was positive for osteomyelitis. He was discharged with PICC line in place and Rocephin for a 10 day course. Patient was apparently discharged [facility] and discharged to home which is an apartment at [facility]. [facility] under the care of Dr. Chong initially on August 17 and underwent coccyx wound debridement. Patient was to return on a weekly basis but missed 3 appointments due to transportation issues and a second appointment was on September 17. He also underwent an I&D of the coccyx wound at that time. Local wound care in the form of Hydrofera Blue. He was found at home with mental status changes and complaining of back pain. He was brought into [facility] emergency center for evaluation. WBC 8.0, GFR greater than 60, hemoglobin A1c 8.6, albumin 3.5. Urinalysis was clear, nitrite negative, leukoesterase trace. Urine culture is in progress. Blood culture is status received. Buttocks culture showing gram-positive cocci in clusters. he has been started on vancomycin and Zosyn with concern for osteomyelitis. He has had previous imaging done on the area in June with CAT scan that showed soft tissue changes in the right posterior sacral region with increased density within the soft tissue extends into the osseous structures. Abscess not identified although infection not excluded. Patient had a polymicrobial infection noted of his sacrum during his stay. Antibiotic therapy at discharge was Zosyn and vancomycin. He again was admitted from October 13 through October 19 at which time he was treated for sacral decubitus ulcer. MRI was done did not show evidence of osteomyelitis. Patient was discharged on meropenem and vancomycin to [facility]. Patient now returns to [facility] emergency center due to altered mental status. Patient was brought in by EMS for possible near syncopal episode patient was found to be extremely weak with change in mental status. Chest x-ray showed nodular areas in the right lung probably scarring with chronic changes. CAT scan of the brain showed no acute findings with mild atrophic changes. Patient was noted to be afebrile with white count of 5.7, hemoglobin 8.7. Potassium 5.3 and BUN 42 with creatinine 2.30. CK was 1010. Troponins were 1.840 and 1.420. Patient was noted to have a wound to the left clavicle and right cheek for which apparently he fell out of his scooter. Information passed on through nursing staff as the patient was living at home and was found covered in stool. He also has admitted to staff that he has been taking more than his prescribed methadone for pain control at home. He has multiple consults in place including cardiology. Patient is now somewhat improved. He does have multiple ulcerations in the Appears to be new lesions on his bilateral stumps. The patient. He is agreeing to go to an extended care facility to complete his course of therapy. He has however been difficult for the length of therapy. He said that he was told that he be there for a couple weeks. We discussed that just as his last time he does have the extensive wounds and the plan was to complete a 6 week course of therapy. He needs approximately 37 days further of his antibiotic therapy. Objective - Vital Signs Vital signs: Vital Signs Temp 96.9 F L 11/11/16 15:00 Pulse 91 11/11/16 15:00 Resp 16 11/11/16 15:00 BP 176/91 11/11/16 15:00 Pulse Ox 98 11/11/16 15:00 Intake & Output 11/11/16 11/11/16 11/12/16 06:59 18:59 06:59 Intake Total 399.572 Output Total 1400 1875 200 Balance -1000.428 -1874200 Intake: Intake, IV Titration 399.572 Amount Heparin Sodium,Porcine/ 399.572 D5w Pmx 25,000 unit In Dextrose/Water 1 500ml. bag @ 12 UNITS/KG/HR 11. 71 mls/hr IV .Q24H [facility] Rx #:[id number] Output: Urine 1400 1875 200 Other: Voiding Method Urinal Urinal - Exam This is a 56-year-old emaciated male. He is seen in the intensive care unit. He has very minimal response to verbal stimuli. Voice is mumbled and unable to understand speech. HEENT: Head is normocephalic. Large abrasion to the right cheek. Pupils equal , round. Sclerae is anicteric. Mucous membranes of the mouth are dry. Dentition is in poor order. NECK: Supple. No JVD. No lymphadenopathy. No thyromegaly. Wound to the left clavicle with surrounding erythema. LUNGS: Coarse sounds bilaterally with poor inspiratory effort. No intercostal retractions. HEART: Regular rate and rhythm. No murmur. ABDOMEN: Soft. Bowel sounds are present. No masses. No tenderness. EXTREMITIES: Bilateral lower extremity amputations noted. Wounds to the bilateral lateral surfaces of both stump are noted Large sacral decubitus ulcer. NEUROLOGICAL: Patient is now much more awake and alert follow some simple commands. Is still somewhat lethargic. - Labs CBC & Chem 7: 11/10/16 09:35 11/11/16 07:33 Labs: Abnormal Lab Results - Last 24 Hours (Table) 11/11/16 11/11/16 11/11/16 Range/Units 02:08 07:08 07:33 APTT (22.0-30.0) sec Chloride 113 H (98-107) mmol/L Carbon Dioxide 18 L (22-30) mmol/L BUN 21 H (9-20) mg/dL Glucose 121 H (74-99) mg/dL POC Glucose (mg/dL) 153 H 134 H (75-99) mg/dL 11/11/16 11/11/16 11/11/16 Range/Units 07:33 16:55 21:25 APTT 31.3 H (22.0-30.0) sec Chloride (98-107) mmol/L Carbon Dioxide (22-30) mmol/L BUN (9-20) mg/dL Glucose (74-99) mg/dL POC Glucose (mg/dL) 234 H 199 H (75-99) mg/dL Microbiology - Last 24 Hours (Table) 11/06/16 15:11 Blood Culture - Preliminary Blood No Growth after 120 hours 11/06/16 14:47 Blood Culture - Preliminary Blood No Growth after 120 hours Laboratory Results WBC 4.9 k/uL (3.8-10.6) 11/10/16 09:35 RBC 3.13 m/uL (4.30-5.90) L 11/10/16 09:35 Hgb 9.2 gm/dL (13.0-17.5) L 11/10/16 09:35 Hct 29.4 % (39.0-53.0) L 11/10/16 09:35 MCV 93.8 fL (80.0-100.0) 11/10/16 09:35 MCH 29.3 pg (25.0-35.0) 11/10/16 09:35 MCHC 31.3 g/dL (31.0-37.0) 11/10/16 09:35 RDW 17.0 % (11.5-15.5) H 11/10/16 09:35 Plt Count 388 k/uL (150-450) 11/10/16 09:35 Neutrophils % 58 % 11/10/16 09:35 Lymphocytes % 23 % 11/10/16 09:35 Monocytes % 5 % 11/10/16 09:35 Eosinophils % 13 % 11/10/16 09:35 Basophils % 1 % 11/10/16 09:35 Neutrophils # 2.8 k/uL (1.3-7.7) 11/10/16 09:35 Lymphocytes # 1.1 k/uL (1.0-4.8) 11/10/16 09:35 Monocytes # 0.2 k/uL (0-1.0) 11/10/16 09:35 Eosinophils # 0.6 k/uL (0-0.7) 11/10/16 09:35 Basophils # 0.0 k/uL (0-0.2) 11/10/16 09:35 Hypochromasia Moderate 11/10/16 09:35 Anisocytosis Slight 11/10/16 09:35 PT 10.6 sec (9.0-12.0) 11/06/16 03:55 INR 1.1 (<1.1) 11/06/16 03:55 APTT 31.3 sec (22.0-30.0) H 11/11/16 07:33 Sodium 139 mmol/L (137-145) 11/11/16 07:33 Potassium 4.9 mmol/L (3.5-5.1) 11/11/16 07:33 Chloride 113 mmol/L (98-107) H 11/11/16 07:33 Carbon Dioxide 18 mmol/L (22-30) L 11/11/16 07:33 Anion Gap 8 mmol/L 11/11/16 07:33 BUN 21 mg/dL (9-20) H 11/11/16 07:33 Creatinine 0.86 mg/dL (0.66-1.25) 11/11/16 07:33 Est GFR (MDRD) Af Amer >60 (>60 ml/min/1.73 sqM) 11/11/16 07:33 Est GFR (MDRD) Non-Af >60 (>60 ml/min/1.73 sqM) 11/11/16 07:33 Glucose 121 mg/dL (74-99) H 11/11/16 07:33 POC Glucose (mg/dL) 199 mg/dL (75-99) H 11/11/16 21:25 POC Glu Land Use [employer] Michelle Dodd 11/11/16 21:25 Plasma Lactic Acid Ayo 0.8 mmol/L (0.7-2.0) 11/06/16 03:55 Calcium 8.6 mg/dL (8.4-10.2) 11/11/16 07:33 Phosphorus 4.4 mg/dL (2.5-4.5) 11/06/16 03:55 Magnesium 1.8 mg/dL (1.6-2.3) 11/06/16 03:55 Total Bilirubin 0.5 mg/dL (0.2-1.3) 11/06/16 03:55 AST 46 U/L (17-59) 11/06/16 03:55 ALT 51 U/L (21-72) 11/06/16 03:55 Alkaline Phosphatase 110 U/L (38-126) 11/06/16 03:55 Total Creatine Kinase 754 U/L (55-170) H 11/06/16 15:24 CK-MB (CK-2) 5.9 ng/mL (0.0-2.4) H* 11/06/16 15:24 CK-MB (CK-2) Rel Index 0.8 11/06/16 15:24 Troponin I 1.220 ng/mL (0.000-0.034) H* 11/06/16 15:24 Total Protein 7.0 g/dL (6.3-8.2) 11/06/16 03:55 Albumin 3.5 g/dL (3.5-5.0) 11/06/16 03:55 Triglycerides 98 mg/dL (<150) 11/07/16 04:31 Cholesterol 87 mg/dL (<200) 11/07/16 04:31 LDL Cholesterol, Calc 36 mg/dL (0-99) 11/07/16 04:31 HDL Cholesterol 31 mg/dL (40-60) L 11/07/16 04:31 Urine Color Yellow 11/06/16 18:40 Urine Appearance Clear (Clear) 11/06/16 18:40 Urine pH 5.5 (5.0-8.0) 11/06/16 18:40 Ur Specific [place] 1.008 (1.001-1.035) 11/06/16 18:40 Urine Protein 1+ (Negative) H 11/06/16 18:40 Urine Glucose (UA) 2+ (Negative) H 11/06/16 18:40 Urine Ketones Negative (Negative) 11/06/16 18:40 Urine Blood Small (Negative) H 11/06/16 18:40 Urine Nitrate Negative (Negative) 11/06/16 18:40 Urine Bilirubin Negative (Negative) 11/06/16 18:40 Urine Urobilinogen <2.0 mg/dL (<2.0) 11/06/16 18:40 Ur Leukocyte Esterase Moderate (Negative) H 11/06/16 18:40 Urine RBC 5 /hpf (0-5) 11/06/16 18:40 Urine WBC 34 /hpf (0-5) H 11/06/16 18:40 Ur Squamous Epith Cells <1 /hpf (0-4) 11/06/16 18:40 Urine Mucus Rare /hpf (None) H 11/06/16 18:40 Urine Yeast (Budding) Few /hpf (None) H 11/06/16 18:40 Vancomycin Trough 7.0 ug/mL 11/09/16 08:38 Microbiology 11/06/16 15:11 Blood Blood Culture - Preliminary No Growth after 120 hours 11/06/16 14:47 Blood Blood Culture - Preliminary No Growth after 120 hours 11/06/16 18:40 Urine,Clean Catch Urine Culture - Final Methicillin resist S. aureus Karina sp,not albicans/galbr 11/06/16 10:00 Chest Gram Stain - Final 11/06/16 10:00 Chest Wound Culture - Final Methicillin resist S. aureus Pseudomonas aeruginosa Assessment and Plan (1) Decubitus ulcer of sacral region, stage 4 Narrative/Plan: 56-year-old male presents to hospital with likely methadone overuse. He also has a history of chronic medical noncompliance. It appears that he may be willing now go to extended care for ongoing therapy. Over sign himself out twice AMA in the recent past. We'll attempt further assurance from his primary care physician that he will go to extended care and stay there if we are to place another PICC line and continue his antibiotic therapy. He is currently on an air mattress overlay receiving local wound care to his coccyx ulceration and left sternal injury. The bilateral stumps will add in the treatment with the foam dressings. Antibiotic therapy is directed at MRSA and Pseudomonas that has been isolated and the vancomycin and meropenem continue. PICC line has been requested for accesses for antibiotic therapy at subacute rehab. An extensive discussion occurs with the patient at this time. He is to complete his course of antibiotic therapy. At this time 37 further days would be ideal with the current antibiotics of vancomycin and meropenem. This is based on his current susceptibility patterns for his MRSA and Pseudomonas. He needs ongoing local wound care, nutritional supplementation with high-protein, and offloading. He understands without this process he is walking the pathway to from sepsis. He is to make a choice of with his overall plans will be , and if he continues with a noncompliant course of therapy his risk of from sepsis is greatly increased. Status: Acute (2) Anemia Status: Acute (3) Diabetic ulcer of right lower leg Status: Acute (4) Diabetic ulcer of left lower leg associated with diabetes mellitus due to underlying condition, with fat layer exposed Status: Acute
[2016-11-12] MEDS: VANCOMYCIN 1,000 MG in SODIUM CHLORIDE 0.9% 250 ML IVPB SCH (00:07)
[2016-11-12] MEDS: METHADONE 10 MG TAB PO SCH ×2 (00:07→08:28)
[2016-11-12] MEDS: MEROPENEM 1 GM in SODIUM CHLORIDE 0.9% 100 ML IVPB SCH ×2 (00:07→08:28)
[2016-11-12] MEDS: SODIUM CHLORIDE 0.9% 1,000 ML IV SCH (06:08)
[2016-11-12 07:45] LABS: Glucose,Whole Blood 140 mg/dL (75-99)
[2016-11-12 07:46] VITALS: BP 125/80; PULSE 80; RESP 20; TEMP 97.8
[2016-11-12] MEDS: NICOTINE 21MG/24HR PATCH TRANSDERM SCH (08:28)
[2016-11-12] MEDS: PANTOPRAZOLE 40 MG TABLET PO SCH (08:28)
[2016-11-12] MEDS: INSULIN LISPRO (humaLOG) 300 UNIT/3 ML VIAL SQ SCH (08:29)
[2016-11-12] MEDS: hydrALAZINE HCL 50 MG TAB PO SCH (08:29)
[2016-11-12] MEDS: GABAPENTIN 300 MG CAP PO SCH (08:29)
[2016-11-12] MEDS: ISOSORBIDE MONONITRATE ER 30 MG TAB.ER.24H PO SCH (08:29)
[2016-11-12] MEDS: CARVEDILOL 6.25 MG TAB PO SCH (08:29)
[2016-11-12] MEDS: DULoxetine HCL 30 MG CAPSULE.DR PO SCH (08:29)
--- NOTE | 2016-11-12 08:52 | P.DS ---
Providers Date of admission: 11/06/16 04:59 Expected date of discharge: 11/12/16 Attending physician: Brent Chong Consults: 11/06/16 08:34 Consult Physician Urgent Consulting Provider: Syed Becerra Consult Reason/Comments: iv antibiotics, wound management Do you want consulting provider notified?: Yes 11/06/16 12:00 Consult Physician Urgent Consulting Provider: Jaron Hou Consult Reason/Comments: ICU medical management Do you want consulting provider notified?: Yes Primary care physician: Brent Chong Hospital Course: Patient is a 56-year-old male patient treated outpatient by Dr. Chong with past medical history significant for coronary artery disease, COPD, diabetes mellitus, GERD, GI bleed, hypertension, chronic back pain, hepatitis C, history of IV drug abuse, bullous lung disease, chronic anemia, and chronic stage IV pressure ulcer to his coccyx. Patient was recently admitted to the hospital from 10/13/2016 through 10/19/2016 where he had presented with profound anemia and was being treated for infection of decubitus sacral ulcer. Patient was eventually discharged to [facility] on IV antibiotics and subsequently discharged home. Patient presented to the emergency department via EMS for evaluation of syncopal event and decreased level of consciousness. Patient did admit to taking more than prescribed doses of methadone for uncontrolled pain prior to admission. Chest x-ray with evidence of nodular areas in the right lung probably scarring with chronic changes. CAT scan of the brain showed no acute findings with mild atrophic changes. Patient was noted to be afebrile with white count of 5.7, hemoglobin 8.7. Potassium 5.3 and BUN 42 with creatinine 2.30. CK was 1010. Troponins were 1.840 and 1.420. Patient was noted to have a wound to the left clavicle and right cheek for which apparently he fell out of his scooter. Patient also had new lesions to his bilateral stumps. Patient was admitted with multiple consults including infectious disease service, cardiology, and surgical service. Patient improved significantly during hospital stay and was deemed stable to go to extended care facility for subacute rehab. Below is a list of patient's medical problems addressed during this hospitalization. Patient will be transferred to [facility] when bed available. 1. Metabolic encephalopathy suspect secondary to sepsis with a urinary cultures positive for MRSA and Karina and wound culture positive for MRSA and Pseudomonas aeruginosa and possible overuse of methadone. 2. Elevated troponins suspect secondary to acute non-ST elevated myocardial infarction. 3. Acute kidney injury, present on admission, resolved. 4. Stage IV sacral decubitus ulcer. 5. Insulin-dependent diabetes mellitus, uncontrolled. 6. Coronary artery disease. 7. Anemia suspect secondary to acute blood loss and chronic disease. Most recent EGD findings of mild antral gastritis and mild esophagitis with no evidence of upper GI bleed. Recent colonoscopy with no evidence of active bleed. 8. Wound to left chest with cultures positive for MRSA and Pseudomonas Aeruginosa. 9. 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 10. Chronic pain syndrome. 11. History of heroin abuse. 12. History of nicotine dependence. 13. Medical debility. The above impression and plan have been discussed and directed by Dr. Barcenas. Yolanda MEDRANO acting as scribe for Dr. Barcenas. Pertinent Studies: Brain CT; EKG; chest x-ray Procedures: PICC line insertion on 11/11/2016 Patient Condition at Discharge: Stable Plan - Discharge Summary New Discharge Prescriptions: Meropenem [Merrem] 1 gm IVPB Q8H #105 vial Methadone [Dolophine] 10 mg PO Q8HR #21 tab Vancomycin 1,000 mg IVPB Q16H #52 bag Discharge Medication List Carvedilol [Coreg] 6.25 mg PO BID 06/13/14 [History] DULoxetine HCL [Cymbalta] 30 mg PO BID 11/18/15 [History] Gabapentin [Neurontin] 300 mg PO TID 01/28/16 [History] Omeprazole 20 mg PO DAILY 06/12/16 [History] Multivitamins, Thera [Multivitamin] 1 tab PO DAILY 10/13/16 [History] QUEtiapine [SEROquel] 200 mg PO HS@2000 10/13/16 [History] Acetaminophen Tab [Tylenol] 650 mg PO Q6HR PRN #0 tab 10/19/16 [Rx] INSULIN LISPRO (humaLOG) [humaLOG (formulary)] See Protocol SQ AC-TID 11/06/16 [ History] Meropenem [Merrem] 1 gm IVPB Q8H #105 vial 11/11/16 [Rx] Vancomycin 1,000 mg IVPB Q16H #52 bag 11/11/16 [Rx] Aspirin 81 mg PO DAILY chew 11/12/16 [Rx] Atorvastatin [Lipitor] 40 mg PO DAILY tab 11/12/16 [Rx] Insulin Glargine [Lantus] 40 unit SQ HS vial 11/12/16 [Rx] Isosorbide Mononitrate ER [Imdur] 30 mg PO DAILY tab.er.24h 11/12/16 [Rx] Methadone [Dolophine] 10 mg PO Q8HR #21 tab 11/12/16 [Rx] Nicotine 21Mg/24Hr Patch [Habitrol] 1 patch TRANSDERM DAILY patch 11/12/16 [Rx] Nitroglycerin Sl Tabs [Nitrostat] 0.4 mg SUBLINGUAL Q5M PRN #0 tab 11/12/16 [Rx] hydrALAZINE HCL [Apresoline] 50 mg PO TID tab 11/12/16 [Rx] Follow up Appointment(s)/Referral(s): Brent Chong MD [Primary Care Provider] - 3 Days Ambulatory/Diagnostic Orders: C Reactive Protein [LAB.AMB] Location: Determined By Patient Complete Blood Count w/diff [LAB.AMB] Location: Determined By Patient Comprehensive Metabolic Panel [LAB.AMB] Location: Determined By Patient Erythrocyte Sedimentation Rate [LAB.AMB] Location: Determined By Patient Vancomycin,Trough [LAB.AMB] Location: Determined By Patient Patient Instructions/Handouts: Myocardial Infarction (DC), Type 2 Diabetes in Adults (DC) Activity/Diet/Wound Care/Special Instructions: Cardiac, diabetic diet. Wound care order: Left chest wall: Optifoam Wednesday, Wednesday, and Wednesday Sacral decubitus ulcer: Optisilver Wednesday, and Wednesday Bilateral stumps: Optifoam every 5 days and PRN (last done on November 10). Discharge Disposition: TRANSFER TO SNF/ECF
[2016-11-12] MEDS ORDERED: ATORVASTATIN 40 MG TAB PO SCH (09:00)
[2016-11-12 09:39] LABS: Anisocytosis Slight; Basophils % (A) 1 %; CH 28.8; CHCM 30.9; Eosinophils # (A) 0.5 k/uL (0-0.7); Eosinophils % (A) 9 %; HCT 26.5 % (39.0-53.0); HDW 2.95; HGB 8.3 gm/dL (13.0-17.5); Hypochromasia Moderate; Luc # (Auto) 0.08; Luc % (Auto) 2; Lymphocytes # (A) 1.7 k/uL (1.0-4.8); Lymphocytes % (A) 31 %; MCH 29.2 pg (25.0-35.0); MCHC 31.1 g/dL (31.0-37.0); MCV 93.8 fL (80.0-100.0); Mean Platelet Volume 7.1; Monocytes # (A) 0.3 k/uL (0-1.0); Monocytes % (A) 6 %; Neutrophils # (A) 2.8 k/uL (1.3-7.7); Neutrophils % (A) 52 %; RBC 2.83 m/uL (4.30-5.90); RDW 16.8 % (11.5-15.5); WBC 5.4 k/uL (3.8-10.6); WBC (Perox) 5.41
[2016-11-12 09:42] LABS: Anion Gap 10 mmol/L; Blood Urea Nitrogen 22 mg/dL (9-20); Calcium 8.8 mg/dL (8.4-10.2); Carbon Dioxide 18 mmol/L (22-30); Chloride 112 mmol/L (98-107); Glucose 133 mg/dL (74-99); Non-African American GFR(MDRD) >60 (>60 ml/min/1.73 sqM); Potassium 5.1 mmol/L (3.5-5.1); Sodium 140 mmol/L (137-145)
[2016-11-12] MEDS: ACETAMINOPHEN TAB 325 MG TAB PO PRN (11:42)
[2016-11-12 11:46] LABS: Manual Review Performed
--- NOTE | 2016-11-12 19:09 | P.PN ---
Subjective Principal diagnosis: Pressure ulcers This is a 56-year-old male who is well-known to ID service as he has been seen on multiple occasions for lower extremity and coccyx wound infections. Patient was last seen by infectious disease in April 2016 at which time he was treated for coccyx decubitus ulcer stage IV and had a PICC line placed and was discharged on Unasyn 3 g every 6 hours for 28 days. He also had a Cardoza grade 2 diabetic ulcer to the right below the knee amputation. Patient was subsequently admitted June 12 at which time he underwent a right [id number] amputation with Dr. Stout. Pathology was positive for osteomyelitis. He was discharged with PICC line in place and Rocephin for a 10 day course. Patient was apparently discharged [facility] and discharged to home which is an apartment at [facility]. [facility] under the care of Dr. Chong initially on August 17 and underwent coccyx wound debridement. Patient was to return on a weekly basis but missed 3 appointments due to transportation issues and a second appointment was on September 17. He also underwent an I&D of the coccyx wound at that time. Local wound care in the form of Hydrofera Blue. He was found at home with mental status changes and complaining of back pain. He was brought into [facility] emergency center for evaluation. WBC 8.0, GFR greater than 60, hemoglobin A1c 8.6, albumin 3.5. Urinalysis was clear, nitrite negative, leukoesterase trace. Urine culture is in progress. Blood culture is status received. Buttocks culture showing gram-positive cocci in clusters. he has been started on vancomycin and Zosyn with concern for osteomyelitis. He has had previous imaging done on the area in June with CAT scan that showed soft tissue changes in the right posterior sacral region with increased density within the soft tissue extends into the osseous structures. Abscess not identified although infection not excluded. Patient had a polymicrobial infection noted of his sacrum during his stay. Antibiotic therapy at discharge was Zosyn and vancomycin. He again was admitted from October 13 through October 19 at which time he was treated for sacral decubitus ulcer. MRI was done did not show evidence of osteomyelitis. Patient was discharged on meropenem and vancomycin to [facility]. Patient now returns to [facility] emergency center due to altered mental status. Patient was brought in by EMS for possible near syncopal episode patient was found to be extremely weak with change in mental status. Chest x-ray showed nodular areas in the right lung probably scarring with chronic changes. CAT scan of the brain showed no acute findings with mild atrophic changes. Patient was noted to be afebrile with white count of 5.7, hemoglobin 8.7. Potassium 5.3 and BUN 42 with creatinine 2.30. CK was 1010. Troponins were 1.840 and 1.420. Patient was noted to have a wound to the left clavicle and right cheek for which apparently he fell out of his scooter. Information passed on through nursing staff as the patient was living at home and was found covered in stool. He also has admitted to staff that he has been taking more than his prescribed methadone for pain control at home. He has multiple consults in place including cardiology. Patient is now somewhat improved. He does have multiple ulcerations in the Appears to be new lesions on his bilateral stumps. The patient. He is agreeing to go to an extended care facility to complete his course of therapy. He has however been difficult for the length of therapy. He said that he was told that he be there for a couple weeks. We discussed that just as his last time he does have the extensive wounds and the plan was to complete a 6 week course of therapy. He needs approximately 36 days further of his antibiotic therapy. Objective - Vital Signs Vital signs: Vital Signs Temp 97.8 F 11/12/16 07:00 Pulse 80 11/12/16 07:00 Resp 20 11/12/16 07:00 BP 125/80 11/12/16 07:00 Pulse Ox 98 11/12/16 07:00 Intake & Output 11/12/16 11/12/16 11/13/16 06:59 18:59 06:59 Intake Total 240 Output Total 1625 500 Balance -1625 -260 Intake: Oral 240 Output: Urine 1625 500 Other: # Voids 2 - Exam This is a 56-year-old emaciated male. He is seen in the intensive care unit. He has very minimal response to verbal stimuli. Voice is mumbled and unable to understand speech. HEENT: Head is normocephalic. Large abrasion to the right cheek. Pupils equal , round. Sclerae is anicteric. Mucous membranes of the mouth are dry. Dentition is in poor order. NECK: Supple. No JVD. No lymphadenopathy. No thyromegaly. Wound to the left clavicle with surrounding erythema. LUNGS: Coarse sounds bilaterally with poor inspiratory effort. No intercostal retractions. HEART: Regular rate and rhythm. No murmur. ABDOMEN: Soft. Bowel sounds are present. No masses. No tenderness. EXTREMITIES: Bilateral lower extremity amputations noted. Wounds to the bilateral lateral surfaces of both stump are noted Large sacral decubitus ulcer. NEUROLOGICAL: Patient is now much more awake and alert is communicative. Is somewhat upset about his overall discharge plan. - Labs CBC & Chem 7: 11/12/16 08:24 11/12/16 08:24 Labs: Abnormal Lab Results - Last 24 Hours (Table) 11/11/16 11/12/16 11/12/16 Range/Units 21:25 07:36 08:24 RBC (4.30-5.90) m/uL Hgb (13.0-17.5) gm/dL Hct (39.0-53.0) % RDW (11.5-15.5) % Chloride 112 H (98-107) mmol/L Carbon Dioxide 18 L (22-30) mmol/L BUN 22 H (9-20) mg/dL Glucose 133 H (74-99) mg/dL POC Glucose (mg/dL) 199 H 140 H (75-99) mg/dL 11/12/16 Range/Units 08:24 RBC 2.83 L (4.30-5.90) m/uL Hgb 8.3 L (13.0-17.5) gm/dL Hct 26.5 L (39.0-53.0) % RDW 16.8 H (11.5-15.5) % Chloride (98-107) mmol/L Carbon Dioxide (22-30) mmol/L BUN (9-20) mg/dL Glucose (74-99) mg/dL POC Glucose (mg/dL) (75-99) mg/dL Microbiology - Last 24 Hours (Table) 11/06/16 15:11 Blood Culture - Final Blood No Growth after 144 hours 11/06/16 14:47 Blood Culture - Final Blood No Growth after 144 hours Assessment and Plan (1) Decubitus ulcer of sacral region, stage 4 Narrative/Plan: 56-year-old male presents to hospital with likely methadone overuse. He also has a history of chronic medical noncompliance. It appears that he may be willing now go to extended care for ongoing therapy. Over sign himself out twice AMA in the recent past. We'll attempt further assurance from his primary care physician that he will go to extended care and stay there if we are to place another PICC line and continue his antibiotic therapy. He is currently on an air mattress overlay receiving local wound care to his coccyx ulceration and left sternal injury. The bilateral stumps will add in the treatment with the foam dressings. Antibiotic therapy is directed at MRSA and Pseudomonas that has been isolated and the vancomycin and meropenem continue. PICC line has been requested for accesses for antibiotic therapy at subacute rehab. An extensive discussion occurs with the patient at this time. He is to complete his course of antibiotic therapy. At this time 36 further days would be ideal with the current antibiotics of vancomycin and meropenem. This is based on his current susceptibility patterns for his MRSA and Pseudomonas. He needs ongoing local wound care, nutritional supplementation with high-protein, and offloading. He understands without this process he is walking the pathway to from sepsis. He is to make a choice of with his overall plans will be, and if he continues with a noncompliant course of therapy his risk of from sepsis is greatly increased. Agrees to go to extended care today. Hopefully will complete his course of antibiotic therapy. We can seem the wound center if needed. Status: Acute (2) Anemia Status: Acute (3) Diabetic ulcer of right lower leg Status: Acute (4) Diabetic ulcer of left lower leg associated with diabetes mellitus due to underlying condition, with fat layer exposed Status: Acute
[2016-11-13] MEDS ORDERED: VANCOMYCIN TROUGH DUE 1 EACH MISC MISCELLANE ONE (07:00)
== END 2016-11-12 11:48 | DRG 871 ==
LOC: EC 03:41 → 6ICU 04:59 → 4MS4W 11-07 17:11
PROVIDERS: ADMIT Family Medicine; ATTEND Family Medicine
PROC: B5181ZA Fluoroscopy of Superior Vena Cava using Low Osmolar Contrast, Guidance (ICD-10-PCS; principal; 2016-11-11 13:41)
PROC: B548ZZA Ultrasonography of Superior Vena Cava, Guidance (ICD-10-PCS; principal; 2016-11-11 13:41)
PROC: 02HV33Z Insertion of Infusion Device into Superior Vena Cava, Percutaneous Approach (ICD-10-PCS; principal; 2016-11-11 13:41)
DX: A41.9 Sepsis, unspecified organism (principal); I21.4 Non-ST elevation (NSTEMI) myocardial infarction; G93.41 Metabolic encephalopathy; L89.154 Pressure ulcer of sacral region, stage 4; I13.0 Hypertensive heart and chronic kidney disease with heart failure and stage 1 through stage 4 chronic kidney disease, or unspecified chronic kidney disease; N17.9 Acute kidney failure, unspecified; I50.9 Heart failure, unspecified; N18.4 Chronic kidney disease, stage 4 (severe); E11.22 Type 2 diabetes mellitus with diabetic chronic kidney disease; L97.922 Non-pressure chronic ulcer of unspecified part of left lower leg with fat layer exposed; L97.919 Non-pressure chronic ulcer of unspecified part of right lower leg with unspecified severity; S21.102A Unspecified open wound of left front wall of thorax without penetration into thoracic cavity, initial encounter; E11.621 Type 2 diabetes mellitus with foot ulcer; D64.9 Anemia, unspecified; B95.62 Methicillin resistant Staphylococcus aureus infection as the cause of diseases classified elsewhere; E11.65 Type 2 diabetes mellitus with hyperglycemia; E78.5 Hyperlipidemia, unspecified; E86.0 Dehydration; F17.200 Nicotine dependence, unspecified, uncomplicated; F32.9 Major depressive disorder, single episode, unspecified; G89.4 Chronic pain syndrome; I25.10 Atherosclerotic heart disease of native coronary artery without angina pectoris; I73.9 Peripheral vascular disease, unspecified; J44.9 Chronic obstructive pulmonary disease, unspecified; K21.9 Gastro-esophageal reflux disease without esophagitis; T87.89 Other complications of amputation stump; E11.622 Type 2 diabetes mellitus with other skin ulcer; W19.XXXA Unspecified fall, initial encounter; Z79.4 Long term (current) use of insulin; Z82.49 Family history of ischemic heart disease and other diseases of the circulatory system; Z87.01 Personal history of pneumonia (recurrent); Z87.11 Personal history of peptic ulcer disease; Z89.511 Acquired absence of right leg below knee; Z89.512 Acquired absence of left leg below knee; Z91.19 Patient's noncompliance with other medical treatment and regimen
CPT/HCPCS: 36415; 36569; 70450; 71010; 76937; 77001; 80048; 80053; 80061; 80202; 81001; 82550; 82553; 83605; 83735; 84100; 84484; 85025; 85049; 85610; 85730; 87040; 87070; 87077; 87086; 87186; 87205; 93005; 94760; 96361; 96365; 96366; 96376; 99291

== ENCOUNTER 2017-02-04 11:59 | Inpatient (IN) | payer OTHER ==
[2017-02-04] MEDS ORDERED: IV VANCOMYCIN PER PHARMACY 1 EACH MISC MISCELLANE PRN (13:11)
--- NOTE | 2017-02-04 14:42 | XR ---
EXAMINATION TYPE: XR chest 1V portable DATE OF EXAM: 02/04/2017 2:36 PM COMPARISON: 11/06/2016 HISTORY: Pain TECHNIQUE: Single frontal view of the chest is obtained. FINDINGS: There is no focal air space opacity, pleural effusion, or pneumothorax seen. The cardiac silhouette size is within normal limits. The osseous structures are intact. Chronic rib deformities noted on the right. Calcified granuloma noted. Hyperinflation suggests COPD. Diffuse osteopenia noted. Biapical pleural thickening. IMPRESSION: 1. COPD with no definite acute process. 2. Stable calcified granuloma and chronic rib deformities.
--- NOTE | 2017-02-04 14:46 | XR ---
EXAMINATION TYPE: XR sacrum coccyx DATE OF EXAM: 02/04/2017 2:36 PM COMPARISON: 01/14/2017 HISTORY: Ulceration adjacent to the coccyx One view is submitted. Sacrum is intact. SI joints are symmetric. Coccyx appears to be intact. Vi sualized pelvic structures intact. Vascular calcifications are seen. Extensive retained fecal debris within the rectum correlate for imp action. Soft tissue defect posterior near the coccyx. No destructive osseous changes. Degenerative ch ansley L5-S1. IMPRESSION: 1. Soft tissue edema and ulceration posterior to the coccyx with no evidence of destructive change. 2. There now is a lucency anterior to the sacrum not seen on the previous exam. This could represent air in the presacral space. Recommend follow-up CT scan.
[2017-02-04] MEDS: SODIUM CHLORIDE 0.9% 1,000 ML IV SCH (14:58)
[2017-02-04] MEDS: SODIUM CHLORIDE 0.9% 500 ML IV SCH ×2 (14:58→14:59)
[2017-02-04] MEDS: PANTOPRAZOLE 40 MG/10 ML VIAL IV SCH (14:58)
[2017-02-04] MEDS ORDERED: VANCOMYCIN 1,000 MG in SODIUM CHLORIDE 0.9% 250 ML IVPB ONE ×2 (15:00→17:00)
[2017-02-04] MEDS ORDERED: INSULIN REGULAR 100 UNIT in SODIUM CHLORIDE 0.9% 100 ML IV SCH (15:00)
[2017-02-04] MEDS: GABAPENTIN 300 MG CAP PO SCH ×2 (15:01→21:44)
[2017-02-04] MEDS: NICOTINE 21MG/24HR PATCH TRANSDERM SCH (15:01)
[2017-02-04] MEDS: ASPIRIN 81 MG CHEW PO SCH (15:01)
[2017-02-04] MEDS: METHADONE 10 MG TAB PO SCH ×2 (15:30→23:29)
[2017-02-04 15:50] LABS: ALT 37 U/L (21-72); AST 20 U/L (17-59); Alkaline Phosphatase 127 U/L (38-126); Anion Gap 12 mmol/L; Blood Urea Nitrogen 46 mg/dL (9-20); Calcium 9.6 mg/dL (8.4-10.2); Carbon Dioxide 18 mmol/L (22-30); Chloride 95 mmol/L (98-107); Magnesium 1.9 mg/dL (1.6-2.3); Non-African American GFR(MDRD) 52 (>60 ml/min/1.73 sqM); Potassium 5.4 mmol/L (3.5-5.1); Sodium 125 mmol/L (137-145); Total Bilirubin 0.4 mg/dL (0.2-1.3)
[2017-02-04 15:52] LABS: Basophils % (A) 0 %; CH 29.1; CHCM 32.1; Eosinophils # (A) 0.1 k/uL (0-0.7); Eosinophils % (A) 2 %; HCT 35.6 % (39.0-53.0); HDW 3.19; HGB 11.5 gm/dL (13.0-17.5); Hypochromasia Slight; Luc # (Auto) 0.21; Luc % (Auto) 3; Lymphocytes # (A) 1.5 k/uL (1.0-4.8); Lymphocytes % (A) 24 %; MCH 29.5 pg (25.0-35.0); MCHC 32.2 g/dL (31.0-37.0); MCV 91.5 fL (80.0-100.0); Mean Platelet Volume 7.5; Monocytes # (A) 0.4 k/uL (0-1.0); Monocytes % (A) 6 %; Neutrophils % (A) 64 %; RBC 3.89 m/uL (4.30-5.90); RDW 14.7 % (11.5-15.5); WBC 6.2 k/uL (3.8-10.6); WBC (Perox) 6.05
[2017-02-04 16:02] LABS: Creatine Kinase 226 U/L (55-170); Hemoglobin A1C 12.4 % (4.2-6.1)
[2017-02-04 16:14] LABS: Creatine Kinase MB 2.4 ng/mL (0.0-2.4); Troponin I <0.012 ng/mL (0.000-0.034)
[2017-02-04 16:20] LABS: Partial Thromboplastin Time 23.5 sec (22.0-30.0)
[2017-02-04 16:25] LABS: Glucose 477 mg/dL (74-99)
[2017-02-04] MEDS: INSULIN LISPRO (humaLOG) 300 UNIT/3 ML VIAL SQ SCH (16:46)
[2017-02-04] MEDS: CARVEDILOL 6.25 MG TAB PO SCH (16:46)
[2017-02-04 16:50] LABS: Appearance,Urine Turbid (Clear); Bilirubin,Urine Negative (Negative); Glucose,Urine (UA) 4+ (Negative); Ketones,Urine Negative (Negative); Leukocyte Esterase,Urine Large (Negative); Nitrite,Urine Negative (Negative); Particle Count 5784; Protein,Urine Trace (Negative); Specific Gravity,Urine 1.013 (1.001-1.035); UA Billing (MACRO vs. MICRO) MICRO; Urobilinogen,Urine <2.0 mg/dL (<2.0); WBC,Urine >182 /hpf (0-5)
[2017-02-04 17:44] LABS: Glucose,Whole Blood 341 mg/dL (75-99)
[2017-02-04] MEDS ORDERED: LEVOFLOXACIN 500MG-D5W PMX 500 MG in DEXTROSE/WATER 1 100ML.BAG IVPB SCH (19:15)
[2017-02-04 20:21] LABS: Glucose,Whole Blood 165 mg/dL (75-99)
[2017-02-04] MEDS: SODIUM CHLORIDE 0.9% 1,500 ML IV ONE ×2 (21:07→21:08)
[2017-02-04] MEDS: ATORVASTATIN 40 MG TAB PO SCH (21:43)
[2017-02-04] MEDS: QUEtiapine 200 MG TAB PO SCH (21:44)
[2017-02-04 21:51] LABS: Glucose,Whole Blood 73 mg/dL (75-99)
[2017-02-04 22:39] LABS: Creatine Kinase 137 U/L (55-170)
[2017-02-04 22:52] LABS: Creatine Kinase MB 1.7 ng/mL (0.0-2.4); Troponin I <0.012 ng/mL (0.000-0.034)
[2017-02-04 23:59] LABS: Glucose,Whole Blood 168 mg/dL (75-99)
[2017-02-05 01:45] LABS: Creatine Kinase 114 U/L (55-170)
[2017-02-05 01:58] LABS: Creatine Kinase MB 1.4 ng/mL (0.0-2.4); Troponin I <0.012 ng/mL (0.000-0.034)
[2017-02-05 02:05] LABS: Glucose,Whole Blood 293 mg/dL (75-99)
[2017-02-05 04:14] LABS: Glucose,Whole Blood 283 mg/dL (75-99)
[2017-02-05] MEDS: SODIUM CHLORIDE 0.9% 1,000 ML IV SCH ×3 (05:59→20:57)
[2017-02-05 06:11] LABS: Glucose,Whole Blood 175 mg/dL (75-99)
[2017-02-05 07:32] LABS: Glucose,Whole Blood 175 mg/dL (75-99)
[2017-02-05] MEDS: METHADONE 10 MG TAB PO SCH ×2 (07:43→16:06)
[2017-02-05] MEDS: ASPIRIN 81 MG CHEW PO SCH (07:44)
[2017-02-05] MEDS: INSULIN LISPRO (humaLOG) 300 UNIT/3 ML VIAL SQ SCH ×4 (07:44→21:28)
[2017-02-05] MEDS: PANTOPRAZOLE 40 MG/10 ML VIAL IV SCH (07:44)
[2017-02-05] MEDS: NICOTINE 21MG/24HR PATCH TRANSDERM SCH (07:44)
[2017-02-05] MEDS: GABAPENTIN 300 MG CAP PO SCH ×3 (07:44→22:23)
[2017-02-05] MEDS: CARVEDILOL 6.25 MG TAB PO SCH ×2 (07:44→17:15)
[2017-02-05 07:53] LABS: Anion Gap 8 mmol/L; Blood Urea Nitrogen 39 mg/dL (9-20); Calcium 8.6 mg/dL (8.4-10.2); Carbon Dioxide 19 mmol/L (22-30); Chloride 109 mmol/L (98-107); Glucose 131 mg/dL (74-99); Magnesium 1.7 mg/dL (1.6-2.3); Non-African American GFR(MDRD) >60 (>60 ml/min/1.73 sqM); Potassium 4.4 mmol/L (3.5-5.1); Sodium 136 mmol/L (137-145)
[2017-02-05 08:22] LABS: Basophils % (A) 0 %; CHCM 32.2; Eosinophils # (A) 0.2 k/uL (0-0.7); Eosinophils % (A) 3 %; HCT 30.9 % (39.0-53.0); HDW 3.22; HGB 10.1 gm/dL (13.0-17.5); Hypochromasia Slight; Luc # (Auto) 0.22; Luc % (Auto) 4; Lymphocytes # (A) 2.1 k/uL (1.0-4.8); Lymphocytes % (A) 35 %; MCH 29.7 pg (25.0-35.0); MCHC 32.8 g/dL (31.0-37.0); MCV 90.7 fL (80.0-100.0); Mean Platelet Volume 7.3; Monocytes # (A) 0.3 k/uL (0-1.0); Monocytes % (A) 5 %; Neutrophils # (A) 3.1 k/uL (1.3-7.7); Neutrophils % (A) 52 %; RBC 3.41 m/uL (4.30-5.90); RDW 14.4 % (11.5-15.5); WBC 5.9 k/uL (3.8-10.6); WBC (Perox) 6.23
[2017-02-05] MEDS ORDERED: VANCOMYCIN 1,000 MG in SODIUM CHLORIDE 0.9% 250 ML IVPB ONE (10:00)
[2017-02-05 10:26] LABS: Glucose,Whole Blood 221 mg/dL (75-99)
[2017-02-05 11:55] VITALS: BMI 22.8
[2017-02-05] MEDS ORDERED: VANCOMYCIN 1,000 MG in SODIUM CHLORIDE 0.9% 250 ML IVPB SCH (12:00)
[2017-02-05] MEDS: MULTIVITAMINS, THERA 1 EACH TAB PO SCH (12:13)
[2017-02-05 12:35] LABS: Glucose,Whole Blood 162 mg/dL (75-99)
[2017-02-05] MEDS: INSULIN DETEMIR 100 UNIT/ML 10 ML VIAL SQ SCH (14:23)
--- NOTE | 2017-02-05 14:28 | P.HPIM ---
History of Present Illness H&P Date: 02/05/17 Chief Complaint: Septic Shree is a 56-year-old white male well-known to me, who presented to the wound center yesterday, February 04. He was found to have a glucose of 502. He was emaciated. He was sleepy. He had missed his follow-up visits in the office. His wound looked much worse. He was slightly hypotensive. He appeared to be septic. He was directly admitted and placed on the sepsis protocol. He is currently on Levaquin and vancomycin. Aquacel silver being applied to his wound. He is received 3000 mL and bolus normal saline and is currently on normal saline drip. He is on insulin scale. He appears much improved today. He denies any chest pains, pressures, shortness breath Review of Systems All systems: negative Past Medical History Past Medical History: Blood Disorder, Diabetes Mellitus, Liver Disease, Musculoskeletal Disorder, Neurologic Disorder, Respiratory Disorder, Vascular Disorder Additional Past Medical History / Comment(s): PAD, gastric ulcer hx, chronic back pain, chronic anemia, HCV, mid lung nodule, bollous lung disease, HEP-C, ANEMIA migraine,DECUB ULCER-BUTTOCKS, NEUROPATHY -FINGERS, MIGRAINES, "pt stated he had an mi in november 2016" History of Any Multi-Drug Resistant Organisms: MRSA, Other MDRO, VRE Date of last positivie culture/infection: 11/06/16- MRSA; 04/22/16-VRE; 04/22/16- MDRO-Acinetobacter MDRO Source:: Chest & Urine-MRSA; Buttock-VRE; Right Leg-MDRO Past Surgical History: Adenoidectomy, Appendectomy, Heart Catheterization, Hernia Repair, Orthopedic Surgery, Tonsillectomy Additional Past Surgical History / Comment(s): R BKA, R BKA revision to AKA, L AKA , rt arm picc line -since removed Past Anesthesia/Blood Transfusion Reactions: No Reported Reaction Additional Past Anesthesia/Blood Transfusion Reaction / Comment(s): Pt recently received blood. Past Psychological History: Depression Additional Psychological History / Comment(s): [facility] He is in a wheelchair and transfers himself. He does not drive. He uses the bus. currently receiving [facility] care nurse 2 times a week. Smoking Status: Current every day smoker Past Alcohol Use History: None Reported Additional Past Alcohol Use History / Comment(s): STARTED SMOKING AT AGE 12 1/2 PPD. currently smoking 1 ppd PT STATED HE STARTED USING HEROIN AT AGE 29 AND QUIT AT AGE 47. Past Drug Use History: Heroin Additional Drug Use History / Comment(s): PT STATED HE QUIT HEROIN AT AGE 47. Pt is on methadone. - Past Family History Mother Family Medical History: Cancer Additional Family Medical History / Comment(s): Mother of brain cancer mets at the age of 68 yrs. Father Family Medical History: Cancer, Coronary Artery Disease (CAD) Additional Family Medical History / Comment(s): Father of throat cancer at the age of 70yrs. Medications and Allergies Home Medications Medication Instructions Recorded Confirmed Type Carvedilol [Coreg] 6.25 mg PO BID 06/13/14 02/04/17 History Gabapentin [Neurontin] 300 mg PO TID 01/28/16 02/04/17 History Omeprazole 20 mg PO DAILY 06/12/16 02/04/17 History Multivitamins, Thera [Multivitamin 1 tab PO DAILY 10/13/16 02/04/17 History (formulary)] QUEtiapine [SEROquel] 200 mg PO HS 10/13/16 02/04/17 History INSULIN LISPRO (humaLOG) [humaLOG See Protocol SQ AC-TID 11/06/16 02/04/17 History (formulary)] Insulin Detemir [Levemir] 38 unit SQ HS 01/14/17 02/04/17 History Atorvastatin [Lipitor] 40 mg PO HS 02/04/17 02/04/17 History Allergies Allergy/AdvReac Type Severity Reaction Status Date / Time piperacillin [From Zosyn] Allergy Severe Dyspnea Verified 02/04/17 14:17 tazobactam [From Zosyn] Allergy Severe Dyspnea Verified 02/04/17 14:17 tramadol Allergy Unknown Verified 02/04/17 14:17 fentanyl AdvReac Lightheaded Verified 02/04/17 14:17 ketorolac tromethamine AdvReac Nausea Verified 02/04/17 14:17 [From Toradol] Physical Exam Vitals: Vital Signs Temp Pulse Pulse Resp BP Pulse Ox 02/05/17 14:17 87 77 14 02/05/17 08:00 87 77 14 02/05/17 07:00 97.5 F L 77 14 112/68 97 02/05/17 03:39 87 76 14 02/05/17 00:00 87 14 02/04/17 23:00 96.3 F L 76 16 87/50 94 L 02/04/17 20:00 97.4 F L 78 14 122/68 96 02/04/17 16:00 87 17 02/04/17 15:00 98.1 F 87 17 104/68 84 L Intake and Output 02/04/17 02/05/17 02/05/17 22:59 06:59 14:59 Intake Total 656.033 309.591 0211 Output Total 1300 300 Balance -643.967 626.858 949 Intake: Intake, IV Titration 66.033 626.858 775 Amount Insulin Regular 100 unit 66.033 26.858 In Sodium Chloride 0.9% 100 ml @ Titrate IV .Q0M [facility] Rx#:[id number] Sodium Chloride 0.9% 1, 600 525 000 ml @ 75 mls/hr IV . [id number] [facility] Rx#:[id number] Vancomycin 1,000 mg In 250 Sodium Chloride 0.9% 250 ml @ 125 mls/hr IVPB ONCE ONE Rx#:[id number] Oral 590 474 Output: Urine 1300 300 Other: Voiding Method Urinal Urinal Urinal Diaper Incontinent Weight 53 kg 53 kg Patient Weight 02/06/17 06:59 Weight 53 kg GENERAL: Emaciated white male, no lower extremities HEAD: Atraumatic, normocephalic. EYES: Pupils equal round and reactive to light, extraocular movements intact, sclera anicteric, conjunctiva are normal. ENT:nares patent, oropharynx clear without exudates. Moist mucous membranes. NECK: Normal range of motion, supple without lymphadenopathy or JVD, no thyromegaly LUNGS: Breath sounds coarse to auscultation bilaterally and equal. No wheezes rales or rhonchi. HEART: Regular rate and rhythm without murmurs, rubs or gallops.S1S2 Normal ABDOMEN: Soft, , normoactive bowel sounds. No guarding, no rebound. No masses appreciated. Mildly tender in all quadrants EXTREMITIES: Bilateral AKA's, hands and arms since the normal NEUROLOGICAL: Cranial nerves II through XII grossly intact. Normal speech, normal gait. PSYCH: Normal mood, normal affect. SKIN: Warm, Dry, normal turgor, no rashes or lesions noted. Results CBC & Chem 7: 02/05/17 07:02 02/05/17 07:02 Labs: Abnormal Lab Results - Last 24 Hours (Table) 02/04/17 02/04/17 02/04/17 Range/Units 15:07 15:07 15:07 RBC 3.89 L (4.30-5.90) m/uL Hgb 11.5 L (13.0-17.5) gm/dL Hct 35.6 L (39.0-53.0) % Sodium 125 L (137-145) mmol/L Potassium 5.4 H (3.5-5.1) mmol/L Chloride 95 L (98-107) mmol/L Carbon Dioxide 18 L (22-30) mmol/L BUN 46 H (9-20) mg/dL Creatinine 1.40 H (0.66-1.25) mg/dL Glucose 477 H* (74-99) mg/dL POC Glucose (mg/dL) (75-99) mg/dL Hemoglobin A1c (4.2-6.1) % Plasma Lactic Acid Ayo (0.7-2.0) mmol/L Alkaline Phosphatase 127 H (38-126) U/L Total Creatine Kinase 226 H (55-170) U/L C-Reactive Protein (<10.0) mg/L Urine Protein (Negative) Urine Glucose (UA) (Negative) Urine Blood (Negative) Ur Leukocyte Esterase (Negative) Urine WBC (0-5) /hpf Urine WBC Clumps (None) /hpf Urine Opiates Screen (NotDetected) Urine Methadone Screen (NotDetected) U Benzodiazepines Scrn (NotDetected) 02/04/17 02/04/17 02/04/17 Range/Units 15:07 16:42 17:41 RBC (4.30-5.90) m/uL Hgb (13.0-17.5) gm/dL Hct (39.0-53.0) % Sodium (137-145) mmol/L Potassium (3.5-5.1) mmol/L Chloride (98-107) mmol/L Carbon Dioxide (22-30) mmol/L BUN (9-20) mg/dL Creatinine (0.66-1.25) mg/dL Glucose (74-99) mg/dL POC Glucose (mg/dL) 341 H (75-99) mg/dL Hemoglobin A1c 12.4 H (4.2-6.1) % Plasma Lactic Acid Ayo (0.7-2.0) mmol/L Alkaline Phosphatase (38-126) U/L Total Creatine Kinase (55-170) U/L C-Reactive Protein (<10.0) mg/L Urine Protein Trace H (Negative) Urine Glucose (UA) 4+ H (Negative) Urine Blood Trace H (Negative) Ur Leukocyte Esterase Large H (Negative) Urine WBC >182 H (0-5) /hpf Urine WBC Clumps Occasional H (None) /hpf Urine Opiates Screen Detected H (NotDetected) Urine Methadone Screen Detected H (NotDetected) U Benzodiazepines Scrn Detected H (NotDetected) 02/04/17 02/04/17 02/04/17 Range/Units 17:54 20:09 21:50 RBC (4.30-5.90) m/uL Hgb (13.0-17.5) gm/dL Hct (39.0-53.0) % Sodium (137-145) mmol/L Potassium (3.5-5.1) mmol/L Chloride (98-107) mmol/L Carbon Dioxide (22-30) mmol/L BUN (9-20) mg/dL Creatinine (0.66-1.25) mg/dL Glucose (74-99) mg/dL POC Glucose (mg/dL) 165 H 73 L (75-99) mg/dL Hemoglobin A1c (4.2-6.1) % Plasma Lactic Acid Ayo 2.6 H* (0.7-2.0) mmol/L Alkaline Phosphatase (38-126) U/L Total Creatine Kinase (55-170) U/L C-Reactive Protein (<10.0) mg/L Urine Protein (Negative) Urine Glucose (UA) (Negative) Urine Blood (Negative) Ur Leukocyte Esterase (Negative) Urine WBC (0-5) /hpf Urine WBC Clumps (None) /hpf Urine Opiates Screen (NotDetected) Urine Methadone Screen (NotDetected) U Benzodiazepines Scrn (NotDetected) 04/04/1702/05/17 02/05/17 Range/Units 23:57 02:04 04:02 RBC (4.30-5.90) m/uL Hgb (13.0-17.5) gm/dL Hct (39.0-53.0) % Sodium (137-145) mmol/L Potassium (3.5-5.1) mmol/L Chloride (98-107) mmol/L Carbon Dioxide (22-30) mmol/L BUN (9-20) mg/dL Creatinine (0.66-1.25) mg/dL Glucose (74-99) mg/dL POC Glucose (mg/dL) 168 H 293 H 283 H (75-99) mg/dL Hemoglobin A1c (4.2-6.1) % Plasma Lactic Acid Ayo (0.7-2.0) mmol/L Alkaline Phosphatase (38-126) U/L Total Creatine Kinase (55-170) U/L C-Reactive Protein (<10.0) mg/L Urine Protein (Negative) Urine Glucose (UA) (Negative) Urine Blood (Negative) Ur Leukocyte Esterase (Negative) Urine WBC (0-5) /hpf Urine WBC Clumps (None) /hpf Urine Opiates Screen (NotDetected) Urine Methadone Screen (NotDetected) U Benzodiazepines Scrn (NotDetected) 02/05/17 02/05/17 02/05/17 Range/Units 06:03 07:02 07:02 RBC 3.41 L (4.30-5.90) m/uL Hgb 10.1 L (13.0-17.5) gm/dL Hct 30.9 L (39.0-53.0) % Sodium 136 L (137-145) mmol/L Potassium (3.5-5.1) mmol/L Chloride 109 H (98-107) mmol/L Carbon Dioxide 19 L (22-30) mmol/L BUN 39 H (9-20) mg/dL Creatinine (0.66-1.25) mg/dL Glucose 131 H (74-99) mg/dL POC Glucose (mg/dL) 175 H (75-99) mg/dL Hemoglobin A1c (4.2-6.1) % Plasma Lactic Acid Ayo (0.7-2.0) mmol/L Alkaline Phosphatase (38-126) U/L Total Creatine Kinase (55-170) U/L C-Reactive Protein (<10.0) mg/L Urine Protein (Negative) Urine Glucose (UA) (Negative) Urine Blood (Negative) Ur Leukocyte Esterase (Negative) Urine WBC (0-5) /hpf Urine WBC Clumps (None) /hpf Urine Opiates Screen (NotDetected) Urine Methadone Screen (NotDetected) U Benzodiazepines Scrn (NotDetected) 02/05/17 02/05/17 02/05/17 Range/Units 07:02 07:29 10:12 RBC (4.30-5.90) m/uL Hgb (13.0-17.5) gm/dL Hct (39.0-53.0) % Sodium (137-145) mmol/L Potassium (3.5-5.1) mmol/L Chloride (98-107) mmol/L Carbon Dioxide (22-30) mmol/L BUN (9-20) mg/dL Creatinine (0.66-1.25) mg/dL Glucose (74-99) mg/dL POC Glucose (mg/dL) 175 H 221 H (75-99) mg/dL Hemoglobin A1c (4.2-6.1) % Plasma Lactic Acid Ayo (0.7-2.0) mmol/L Alkaline Phosphatase (38-126) U/L Total Creatine Kinase (55-170) U/L C-Reactive Protein 29.9 H (<10.0) mg/L Urine Protein (Negative) Urine Glucose (UA) (Negative) Urine Blood (Negative) Ur Leukocyte Esterase (Negative) Urine WBC (0-5) /hpf Urine WBC Clumps (None) /hpf Urine Opiates Screen (NotDetected) Urine Methadone Screen (NotDetected) U Benzodiazepines Scrn (NotDetected) 02/05/17 Range/Units 12:20 RBC (4.30-5.90) m/uL Hgb (13.0-17.5) gm/dL Hct (39.0-53.0) % Sodium (137-145) mmol/L Potassium (3.5-5.1) mmol/L Chloride (98-107) mmol/L Carbon Dioxide (22-30) mmol/L BUN (9-20) mg/dL Creatinine (0.66-1.25) mg/dL Glucose (74-99) mg/dL POC Glucose (mg/dL) 162 H (75-99) mg/dL Hemoglobin A1c (4.2-6.1) % Plasma Lactic Acid Ayo (0.7-2.0) mmol/L Alkaline Phosphatase (38-126) U/L Total Creatine Kinase (55-170) U/L C-Reactive Protein (<10.0) mg/L Urine Protein (Negative) Urine Glucose (UA) (Negative) Urine Blood (Negative) Ur Leukocyte Esterase (Negative) Urine WBC (0-5) /hpf Urine WBC Clumps (None) /hpf Urine Opiates Screen (NotDetected) Urine Methadone Screen (NotDetected) U Benzodiazepines Scrn (NotDetected) Microbiology - Last 24 Hours (Table) 02/04/17 16:42 Urine Culture - Preliminary Urine,Clean Catch Chest x-ray: report reviewed Thrombosis Risk Factor Assmnt - Choose All That Apply Any of the Below Risk Factors Present?: Yes Each Factor Represents 1 point: Age 41-60 years Other Risk Factors: Yes Each Risk Factor Represents 2 Points: Patient confined to bed Thrombosis Risk Factor Assessment Total Risk Factor Score: 3 Thrombosis Risk Factor Assessment Level: Moderate Risk Assessment and Plan Plan: Sepsis: He remains on sepsis protocol antibiotics due to suspected osteomyelitis. Continue IV fluids Osteomyelitis due to a stage IV pressure ulcer coccyx: He'll continue Aquacel silver to the wound. We will consult Dr. Becerra for infectious disease evaluation. He will continue IV antibiotics of Levaquin and vancomycin. UTI: He remains on antibiotics as above. Insulin diabetes mellitus, poorly controlled: He will be discontinued off the insulin drip as his sugars much improved. He was started on Humalog scale every 4 and Lantus 40 daily. Neck low back pain: He'll continue on his methadone. History of opioid abuse and heroin use: We will not give him any other opioids at this time other than his methadone. This is being used for back pain, not for opioid treatment. Medical debility: We'll investigate physical therapy for him. Poor compliance: We'll consult social work obtained with this and to discuss options for when he is ready for discharge. I reevaluated next 3-4 weeks, patient
--- NOTE | 2017-02-05 15:10 | CT ---
EXAMINATION TYPE: CT sacrum wo con DATE OF EXAM: 02/05/2017 2:57 PM COMPARISON: X-ray from one day earlier. CT sacrum from June 02, 2016 HISTORY: Abnormal x-ray, decubitus ulcer or sacral wound. CT DLP: 154.8 mGycm Automated exposure control for dose reduction was used. CT scan of pelvis focus in sacrum is performed without contrast FINDINGS: OSSEOUS STRUCTURES ARE DEMINERALIZED. NO ACUTE FRACTURE OR DISLOCATION IS SACRUM IS IDENTIFIED. SACRO ILIAC JOINTS ARE MAINTAINED. ENTIRE COCCYX IS NOT IMAGED. THERE IS PROMINENT FECAL MATERIAL IN VISUAL IZED COLON ESPECIALLY IN THE OVERLYING RECTUM. NO SUSPICIOUS AIR ANTERIOR TO THE SACRUM IS IDENTIFIED . THERE IS ABNORMAL SKIN THICKENING AND ULCERATION INVOLVING THE LOWER SACRUM COULD REFLECT ACUTE ON CH RONIC INFECTION OR ULCERATION EXTENDING INTO THE RIGHT LATERAL POSTERIOR SUBCUTANEOUS TISSUE. NO SUSP ICIOUS CORTICAL DESTRUCTION OF THE SACRUM IS IDENTIFIED. VISUALIZED PORTION OF BLADDER IS UNREMARKABLE. THERE IS MODERATE CALCIFIED ATHEROSCLEROTIC CHANGE OF PELVIC BRANCH VESSELS. IMPRESSION: NO SUSPICIOUS INTERNAL LUCENCY IS PRESENT. SACRUM IS INTACT. THERE IS OVERALL MODERATE DI FFUSE COLONIC FECAL STASIS WITH SEVERE RECTAL FECAL STASIS OR IMPACTION NOTED. SACRAL DECUBITUS ULCER OR INFECTION NOTED.
[2017-02-05 16:37] LABS: Glucose,Whole Blood 221 mg/dL (75-99)
[2017-02-05 20:05] LABS: Glucose,Whole Blood 192 mg/dL (75-99)
[2017-02-05] MEDS ORDERED: LEVOFLOXACIN 500MG-D5W PMX 500 MG in DEXTROSE/WATER 1 100ML.BAG IVPB SCH (21:00)
[2017-02-05] MEDS ORDERED: INSULIN DETEMIR 100 UNIT/ML 10 ML VIAL SQ SCH (21:00)
[2017-02-05] MEDS: ATORVASTATIN 40 MG TAB PO SCH (22:22)
[2017-02-05] MEDS: QUEtiapine 200 MG TAB PO SCH (22:23)
--- NOTE | 2017-02-05 22:54 | P.CONS ---
History of Present Illness - Reason for Consult Consult date: 02/05/17 - Chief Complaint cellulitis of coccyx - History of Present Illness This is a 56-year-old male who is well-known to ID service as he has been seen on multiple occasions for lower extremity and coccyx wound infections. Patient was last seen by infectious disease in April 2016 at which time he was treated for coccyx decubitus ulcer stage IV and had a PICC line placed and was discharged on Unasyn 3 g every 6 hours for 28 days. He also had a Cardoza grade 2 diabetic ulcer to the right below the knee amputation. Patient was subsequently admitted June 12- at which time he underwent a right [id number] amputation with Dr. Stout. Pathology was positive for osteomyelitis. He was discharged with PICC line in place and Rocephin for a 10 day course. Patient was apparently discharged [facility] and discharged to home which is an apartment at [facility]. He has been seen in [facility] under the care of Dr. Chong initially on August 17 and underwent coccyx wound debridement. Patient was to return on a weekly basis but missed 3 appointments due to transportation issues and a second appointment was on September 17. He also underwent an I&D of the coccyx wound at that time. Local wound care in the form of Hydrofera Blue. October he was again admittedwith some altered mental status And concerns to sepsis. He presented wound healing center today with worsening cellulitis to the coccyx area as well as new ulceration to the right upper thigh. Because he is admitted to hospital and evaluation was requested. The patient also had a blood sugar that was over 500 in with concerns to DKA was placed on an insulin drip feeling somewhat better today. Review of Systems HEENT:Denies headache or acute visual change. Denies sinus or mouth discomforts. Denies neck stiffness or pain. Denies significant oral cavity pain. Denies difficulty on swallowing. Lungs: Anicteric shortness of breath due to his COPD from his many years of smoking. Has minimal cough or sputum production no hemoptysis Cardiovascular: Denies significant shortness of breath, chest pain, chest wall pain, orthopnea, dyspnea on exertion, syncope Gastrointestinal:Denies nausea, vomiting, diarrhea, constipation, hematemesis, melena, hematochezia. No no significant change of bowel habit noticed. Musculoskeletal: Chronic back pain and chronic debility due to his peripheral vascular disease Skin: Denies new rash or lesions. Back ulcer of the sacrum Neuro: Patient had difficulty with altered mental status admission that is now improving Psychiatric:Denies anxiety or depression. Endocrine: Chronic fatigue and ongoing weight loss. Past Medical History Past Medical History: Blood Disorder, Diabetes Mellitus, Liver Disease, Musculoskeletal Disorder, Neurologic Disorder, Respiratory Disorder, Vascular Disorder Additional Past Medical History / Comment(s): PAD, gastric ulcer hx, chronic back pain, chronic anemia, HCV, mid lung nodule, bollous lung disease, HEP-C, ANEMIA migraine,DECUB ULCER-BUTTOCKS, NEUROPATHY -FINGERS, MIGRAINES, "pt stated he had an mi in november 2016" History of Any Multi-Drug Resistant Organisms: MRSA, Other MDRO, VRE Year Discovered:: 11/06/16- MRSA; 04/22/16-VRE; 04/22/1636-OXBF-Pmhhulmdahbgr MDRO Source:: Chest & Urine-MRSA; Buttock-VRE; Right Leg-MDRO Past Surgical History: Adenoidectomy, Appendectomy, Heart Catheterization, Hernia Repair, Orthopedic Surgery, Tonsillectomy Additional Past Surgical History / Comment(s): R BKA, R BKA revision to AKA, L AKA , rt arm picc line -since removed Past Anesthesia/Blood Transfusion Reactions: No Reported Reaction Additional Past Anesthesia/Blood Transfusion Reaction / Comm: Pt recently received blood. Past Psychological History: Depression Additional Psychological History / Comment(s): Pt is back home residing alone at [facility]. He is in a wheelchair and transfers himself. He does not drive. He uses the bus. currently receiving [facility] home care nurse 2 times a week. Smoking Status: Current every day smoker Past Alcohol Use History: None Reported Additional Past Alcohol Use History / Comment(s): STARTED SMOKING AT AGE 12 1/2 PPD. currently smoking 1 ppd PT STATED HE STARTED USING HEROIN AT AGE 29 AND QUIT AT AGE 47. Past Drug Use History: Heroin Additional Drug Use History / Comment(s): PT STATED HE QUIT HEROIN AT AGE 47. Pt is on methadone. - Past Family History Mother Family Medical History: Cancer Additional Family Medical History / Comment(s): Mother of brain cancer mets at the age of 68 yrs. Father Family Medical History: Cancer, Coronary Artery Disease (CAD) Additional Family Medical History / Comment(s): Father of throat cancer at the age of 70yrs. Medications and Allergies Home Medications and Allergies Comment(s): Current Medications Aspirin (Aspirin) 81 mg PO DAILY [facility] Last Admin: 02/05/17 07:44 Dose: 81 mg Atorvastatin Calcium (Lipitor) 40 mg PO HS [facility] Last Admin: 02/05/17 22:22 Dose: 40 mg Carvedilol (Coreg) 6.25 mg PO BID-W/MEALS [facility] Last Admin: 02/05/17 17:15 Dose: 6.25 mg Gabapentin (Neurontin) 300 mg PO TID [facility] Last Admin: 02/05/17 22:23 Dose: 300 mg Sodium Chloride (Saline 0.9%) 1,000 mls @ 75 mls/hr IV .[id number] [facility] Last Admin: 02/05/17 20:57 Dose: 75 mls/hr Levofloxacin 500 mg/ IV (Solution) 100 mls @ 100 mls/hr IVPB Q24H [facility] Last Admin: 02/05/17 22:22 Dose: 100 mls/hr Vancomycin HCl 1,000 mg/ (Sodium Chloride) 250 mls @ 125 mls/hr IVPB Q16H [facility] Insulin Detemir (Levemir) [address] [facility] Last Admin: 02/05/17 14:23 Dose: 40 unit Insulin Human Lispro (Humalog) 0 unit SQ Q4HR [facility] PRN Reason: Protocol Last Admin: 02/05/17 21:28 Dose: 2 unit Methadone HCl (Dolophine) 10 mg PO Q8HR [facility] Last Admin: 02/05/17 16:06 Dose: 10 mg Multivitamins (Theragran) 1 each PO DAILY@1200 [facility] Last Admin: 02/05/17 12:13 Dose: 1 each Nicotine (Habitrol 21mg/24hr Patch) 1 patch TRANSDERM DAILY [facility] Last Admin: 02/05/17 07:44 Dose: 1 patch Pantoprazole Sodium (Protonix) 40 mg PO AC-BRKFST [facility] Quetiapine Fumarate (Seroquel) [address] [facility] Last Admin: 02/05/17 22:23 Dose: 200 mg Home Medications Medication Instructions Recorded Confirmed Type Carvedilol [Coreg] 6.25 mg PO BID 06/13/14 02/04/17 History Gabapentin [Neurontin] 300 mg PO TID 03/29/16 04/06/17 History Omeprazole 20 mg PO DAILY 06/12/16 02/04/17 History Multivitamins, Thera [Multivitamin 1 tab PO DAILY 10/13/16 02/04/17 History (formulary)] QUEtiapine [SEROquel] 200 mg PO HS 10/13/16 02/04/17 History INSULIN LISPRO (humaLOG) [humaLOG See Protocol SQ AC-TID 11/06/16 02/04/17 History (formulary)] Insulin Detemir [Levemir] 38 unit SQ HS 01/14/17 02/04/17 History Atorvastatin [Lipitor] 40 mg PO HS 02/04/17 02/04/17 History Allergies Allergy/AdvReac Type Severity Reaction Status Date / Time piperacillin [From Zosyn] Allergy Severe Dyspnea Verified 02/04/17 14:17 tazobactam [From Zosyn] Allergy Severe Dyspnea Verified 02/04/17 14:17 tramadol Allergy Unknown Verified 02/04/17 14:17 fentanyl AdvReac Lightheaded Verified 02/04/17 14:17 ketorolac tromethamine AdvReac Nausea Verified 02/04/17 14:17 [From Toradol] Physical Exam Vitals: Vital Signs Temp Pulse Pulse Resp BP Pulse Ox 02/05/17 14:17 87 77 14 02/05/17 08:00 87 77 14 02/05/17 07:00 97.5 F L 77 14 112/68 97 02/05/17 03:39 87 76 14 02/05/17 00:00 87 14 02/04/17 23:00 96.3 F L 76 16 87/50 94 L Intake and Output 02/05/17 02/05/17 02/05/17 06:59 14:59 22:59 Intake Total 621.055 9321 Output Total 300 Balance 626.858 949 Intake: Intake, IV Titration 626.858 775 Amount Insulin Regular 100 unit 26.858 In Sodium Chloride 0.9% 100 ml @ Titrate IV .Q0M [facility] Rx#:[id number] Sodium Chloride 0.9% 1, 600 525 000 ml @ 75 mls/hr IV . [id number] [facility] Rx#:[id number] Vancomycin 1,000 mg In 250 Sodium Chloride 0.9% 250 ml @ 125 mls/hr IVPB ONCE ONE Rx#:[id number] Oral 474 Output: Urine 300 Other: Voiding Method Urinal Urinal Diaper Incontinent Weight 53 kg Patient Weight 02/06/17 06:59 Weight 53 kg This is a 56-year-old emaciated male. He is sitting up in bed and is slow to respond. He appears to be in no acute distress. HEENT: Head is atraumatic, normocephalic. Pupils equal, round. Sclerae is anicteric. Mucous membranes of the mouth are dry. Dentition is in poor order. NECK: Supple. No JVD. No lymphadenopathy. No thyromegaly. LUNGS: Coarse sounds bilaterally with poor inspiratory effort. No intercostal retractions. HEART: Regular rate and rhythm. No murmur. ABDOMEN: Soft. Bowel sounds are present. No masses. No tenderness. EXTREMITIES: Bilateral lower extremity amputations noted. No open wounds or drainage from the stumps. No erythema. NEUROLOGICAL: Patient is now awake and alert. No [facility]. State my name. She is having trouble with days. He does not remember yesterday well. The coccyx ulceration measures at 8 x7 x 0.5 cm.there is also a small ulceration of 2 x 2 x 0.2 cm on the right upper thigh posterior Results CBC & Chem 7: 02/05/17 07:02 02/05/17 07:02 Labs: Abnormal Lab Results - Last 24 Hours (Table) 02/04/17 02/05/17 02/05/17 Range/Units 23:57 02:04 04:02 RBC (4.30-5.90) m/uL Hgb (13.0-17.5) gm/dL Hct (39.0-53.0) % ESR (0-15) mm/hr Sodium (137-145) mmol/L Chloride (98-107) mmol/L Carbon Dioxide (22-30) mmol/L BUN (9-20) mg/dL Glucose (74-99) mg/dL POC Glucose (mg/dL) 168 H 293 H 283 H (75-99) mg/dL C-Reactive Protein (<10.0) mg/L 02/05/17 02/05/17 02/05/17 Range/Units 06:03 07:02 07:02 RBC 3.41 L (4.30-5.90) m/uL Hgb 10.1 L (13.0-17.5) gm/dL Hct 30.9 L (39.0-53.0) % ESR (0-15) mm/hr Sodium 136 L (137-145) mmol/L Chloride 109 H (98-107) mmol/L Carbon Dioxide 19 L (22-30) mmol/L BUN 39 H (9-20) mg/dL Glucose 131 H (74-99) mg/dL POC Glucose (mg/dL) 175 H (75-99) mg/dL C-Reactive Protein (<10.0) mg/L 02/05/17 02/05/17 02/05/17 Range/Units 07:02 07:02 07:29 RBC (4.30-5.90) m/uL Hgb (13.0-17.5) gm/dL Hct (39.0-53.0) % ESR 19 H (0-15) mm/hr Sodium (137-145) mmol/L Chloride (98-107) mmol/L Carbon Dioxide (22-30) mmol/L BUN (9-20) mg/dL Glucose (74-99) mg/dL POC Glucose (mg/dL) 175 H (75-99) mg/dL C-Reactive Protein 29.9 H (<10.0) mg/L 02/05/17 02/05/17 02/05/17 Range/Units 10:12 12:20 16:34 RBC (4.30-5.90) m/uL Hgb (13.0-17.5) gm/dL Hct (39.0-53.0) % ESR (0-15) mm/hr Sodium (137-145) mmol/L Chloride (98-107) mmol/L Carbon Dioxide (22-30) mmol/L BUN (9-20) mg/dL Glucose (74-99) mg/dL POC Glucose (mg/dL) 221 H 162 H 221 H (75-99) mg/dL C-Reactive Protein (<10.0) mg/L 02/05/17 Range/Units 20:03 RBC (4.30-5.90) m/uL Hgb (13.0-17.5) gm/dL Hct (39.0-53.0) % ESR (0-15) mm/hr Sodium (137-145) mmol/L Chloride (98-107) mmol/L Carbon Dioxide (22-30) mmol/L BUN (9-20) mg/dL Glucose (74-99) mg/dL POC Glucose (mg/dL) 192 H (75-99) mg/dL C-Reactive Protein (<10.0) mg/L Microbiology - Last 24 Hours (Table) 02/04/17 16:00 Blood Culture - Preliminary Blood No Growth after 24 hours 02/04/17 15:07 Blood Culture - Preliminary Blood No Growth after 24 hours 02/04/17 16:42 Urine Culture - Preliminary Urine,Clean Catch Laboratory Results WBC 5.9 k/uL (3.8-10.6) 02/05/17 07:02 RBC 3.41 m/uL (4.30-5.90) L 02/05/17 07:02 Hgb 10.1 gm/dL (13.0-17.5) L 02/05/17 07:02 Hct 30.9 % (39.0-53.0) L 02/05/17 07:02 MCV 90.7 fL (80.0-100.0) 02/05/17 07:02 MCH 29.7 pg (25.0-35.0) 02/05/17 07:02 MCHC 32.8 g/dL (31.0-37.0) 02/05/17 07:02 RDW 14.4 % (11.5-15.5) 02/05/17 07:02 Plt Count 298 k/uL (150-450) 02/05/17 07:02 Neutrophils % 52 % 02/05/17 07:02 Lymphocytes % 35 % 02/05/17 07:02 Monocytes % 5 % 02/05/17 07:02 Eosinophils % 3 % 02/05/17 07:02 Basophils % 0 % 02/05/17 07:02 Neutrophils # 3.1 k/uL (1.3-7.7) 02/05/17 07:02 Lymphocytes # 2.1 k/uL (1.0-4.8) 02/05/17 07:02 Monocytes # 0.3 k/uL (0-1.0) 02/05/17 07:02 Eosinophils # 0.2 k/uL (0-0.7) 02/05/17 07:02 Basophils # 0.0 k/uL (0-0.2) 02/05/17 07:02 Hypochromasia Slight 02/05/17 07:02 ESR 19 mm/hr (0-15) H 02/05/17 07:02 PT 10.0 sec (9.0-12.0) 02/04/17 15:07 INR 1.0 (<1.1) 02/04/17 15:07 APTT 23.5 sec (22.0-30.0) 02/04/17 15:07 Sodium 136 mmol/L (137-145) L 02/05/17 07:02 Potassium 4.4 mmol/L (3.5-5.1) 02/05/17 07:02 Chloride 109 mmol/L (98-107) H 02/05/17 07:02 Carbon Dioxide 19 mmol/L (22-30) L 02/05/17 07:02 Anion Gap 8 mmol/L 02/05/17 07:02 BUN 39 mg/dL (9-20) H 02/05/17 07:02 Creatinine 1.23 mg/dL (0.66-1.25) 02/05/17 07:02 Est GFR (MDRD) Af Amer >60 (>60 ml/min/1.73 sqM) 02/05/17 07:02 Est GFR (MDRD) Non-Af >60 (>60 ml/min/1.73 sqM) 02/05/17 07:02 Glucose 131 mg/dL (74-99) H 02/05/17 07:02 POC Glucose (mg/dL) 192 mg/dL (75-99) H 02/05/17 20:03 POC Glu [employer] Purse Framer ID Cheri Rosado 02/05/17 20:[address] Glu mg/dL 309 mg/dL 02/04/17 15:07 Hemoglobin A1c 12.4 % (4.2-6.1) H 02/04/17 15:07 Plasma Lactic Acid Ayo 1.9 mmol/L (0.7-2.0) 02/04/17 20:54 Calcium 8.6 mg/dL (8.4-10.2) 02/05/17 07:02 Magnesium 1.7 mg/dL (1.6-2.3) 02/05/17 07:02 Total Bilirubin 0.4 mg/dL (0.2-1.3) 02/04/17 15:07 AST 20 U/L (17-59) 02/04/17 15:07 ALT 37 U/L (21-72) 02/04/17 15:07 Alkaline Phosphatase 127 U/L (38-126) H 02/04/17 15:07 Total Creatine Kinase 114 U/L (55-170) 02/05/17 01:04 CK-MB (CK-2) 1.4 ng/mL (0.0-2.4) 02/05/17 01:04 CK-MB (CK-2) Rel Index 1.2 02/05/17 01:04 Troponin I <0.012 ng/mL (0.000-0.034) 02/05/17 01:04 C-Reactive Protein 29.9 mg/L (<10.0) H 02/05/17 07:02 Total Protein 7.0 g/dL (6.3-8.2) 02/04/17 15:07 Albumin 3.5 g/dL (3.5-5.0) 02/04/17 15:07 TSH 0.721 mIU/L (0.465-4.680) 02/04/17 15:07 Cortisol 17 ug/dL 02/04/17 15:07 Urine Color Yellow 02/04/17 16:42 Urine Appearance Turbid (Clear) 02/04/17 16:42 Urine pH 6.0 (5.0-8.0) 02/04/17 16:42 Ur Specific [place] 1.013 (1.001-1.035) 02/04/17 16:42 Urine Protein Trace (Negative) H 02/04/17 16:42 Urine Glucose (UA) 4+ (Negative) H 02/04/17 16:42 Urine Ketones Negative (Negative) 02/04/17 16:42 Urine Blood Trace (Negative) H 02/04/17 16:42 Urine Nitrite Negative (Negative) 02/04/17 16:42 Urine Bilirubin Negative (Negative) 02/04/17 16:42 Urine Urobilinogen <2.0 mg/dL (<2.0) 02/04/17 16:42 Ur Leukocyte Esterase Large (Negative) H 02/04/17 16:42 Urine WBC >182 /hpf (0-5) H 02/04/17 16:42 Urine WBC Clumps Occasional /hpf (None) H 02/04/17 16:42 Urine Opiates Screen Detected (NotDetected) H 02/04/17 16:42 Ur Oxycodone Screen Not Detected (NotDetected) 02/04/17 16:42 Urine Methadone Screen Detected (NotDetected) H 02/04/17 16:42 Ur Propoxyphene Screen Not Detected (NotDetected) 02/04/17 16:42 Ur Barbiturates Screen Not Detected (NotDetected) 02/04/17 16:42 U Tricyclic Antidepress Not Detected (NotDetected) 02/04/17 16:42 Ur Phencyclidine Scrn Not Detected (NotDetected) 02/04/17 16:42 Ur Amphetamines Screen Not Detected (NotDetected) 02/04/17 16:42 U Methamphetamines Scrn Not Detected (NotDetected) 02/04/17 16:42 U Benzodiazepines Scrn Detected (NotDetected) H 02/04/17 16:42 Urine Cocaine Screen Not Detected (NotDetected) 02/04/17 16:42 U Marijuana (THC) Screen Not Detected (NotDetected) 02/04/17 16:42 Blood Type A Positive 02/04/17 15:07 Blood Type Recheck No 02/04/17 15:07 Antibody Screen NEGATIVE 02/04/17 15:07 Spec Expiration Date 02/07/2017230602/04/17 15:07 Microbiology 02/04/17 16:00 Blood Blood Culture - Preliminary No Growth after 24 hours 02/04/17 15:07 Blood Blood Culture - Preliminary No Growth after 24 hours 02/04/17 16:42 Urine,Clean Catch Urine Culture - Preliminary Assessment and Plan (1) Decubitus ulcer of sacral region, stage 4 Narrative/Plan: 56-year-old male with history of bilateral cnrpi-yda-[id number] amputation' s presents to hospital with evidence of hyperglycemia with nonketotic hyperosmolality. As well as some cellulitis to his coccyx area is a chronic ulceration. No ulceration to the thighs noted. The silver alginate is applied to the coccyx ulcer. Foam dressing will be applied to the thigh ulceration. Current antibiotic therapy is with levofloxacin and vancomycin. I will continue all cultures from process. He has an air mattress. Continue ongoing supportive care. Needs ongoing improvement of his diabetic status. This however is an ongoing issue with many Occasions over time. Status: Acute (2) Type 2 diabetes mellitus with hyperosmolar nonketotic hyperglycemia Status: Acute
[2017-02-05] MEDS: MEROPENEM 1 GM in SODIUM CHLORIDE 0.9% 100 ML IVPB SCH (23:59)
[2017-02-05] MEDS: VANCOMYCIN 1,000 MG in SODIUM CHLORIDE 0.9% 250 ML IVPB SCH (23:59)
[2017-02-06 00:04] LABS: Glucose,Whole Blood 375 mg/dL (75-99)
[2017-02-06] MEDS: INSULIN LISPRO (humaLOG) 300 UNIT/3 ML VIAL SQ SCH ×8 (00:05→20:24)
[2017-02-06 04:25] LABS: Glucose,Whole Blood 352 mg/dL (75-99)
[2017-02-06 06:56] LABS: Basophils % (A) 1 %; CH 28.8; CHCM 31.3; Eosinophils # (A) 0.2 k/uL (0-0.7); Eosinophils % (A) 4 %; HCT 27.2 % (39.0-53.0); HDW 3.19; HGB 8.8 gm/dL (13.0-17.5); Hypochromasia Moderate; Luc # (Auto) 0.16; Luc % (Auto) 3; Lymphocytes # (A) 1.6 k/uL (1.0-4.8); Lymphocytes % (A) 30 %; MCHC 32.4 g/dL (31.0-37.0); MCV 92.6 fL (80.0-100.0); Mean Platelet Volume 7.2; Monocytes # (A) 0.3 k/uL (0-1.0); Monocytes % (A) 5 %; Neutrophils % (A) 57 %; RBC 2.94 m/uL (4.30-5.90); RDW 14.8 % (11.5-15.5); WBC 5.3 k/uL (3.8-10.6); WBC (Perox) 5.42
[2017-02-06 07:16] LABS: Anion Gap 8 mmol/L; Blood Urea Nitrogen 34 mg/dL (9-20); Calcium 7.5 mg/dL (8.4-10.2); Carbon Dioxide 17 mmol/L (22-30); Chloride 110 mmol/L (98-107); Glucose 312 mg/dL (74-99); Non-African American GFR(MDRD) >60 (>60 ml/min/1.73 sqM); Potassium 4.3 mmol/L (3.5-5.1); Sodium 135 mmol/L (137-145)
[2017-02-06 07:30] LABS: Glucose,Whole Blood 354 mg/dL (75-99)
[2017-02-06] MEDS: MEROPENEM 1 GM in SODIUM CHLORIDE 0.9% 100 ML IVPB SCH ×2 (08:26→15:12)
[2017-02-06] MEDS: NICOTINE 21MG/24HR PATCH TRANSDERM SCH (08:26)
[2017-02-06] MEDS: GABAPENTIN 300 MG CAP PO SCH ×3 (08:27→20:25)
[2017-02-06] MEDS: CARVEDILOL 6.25 MG TAB PO SCH ×2 (08:27→16:55)
[2017-02-06] MEDS: ASPIRIN 81 MG CHEW PO SCH (08:27)
[2017-02-06] MEDS: METHADONE 10 MG TAB PO SCH ×3 (08:27→16:55)
[2017-02-06] MEDS: PANTOPRAZOLE 40 MG TABLET PO SCH (08:27)
[2017-02-06] MEDS ORDERED: VANCOMYCIN 1,000 MG in SODIUM CHLORIDE 0.9% 250 ML IVPB SCH (09:00)
[2017-02-06 11:58] LABS: Glucose,Whole Blood 479 mg/dL (75-99)
[2017-02-06] MEDS: MULTIVITAMINS, THERA 1 EACH TAB PO SCH (12:02)
[2017-02-06] MEDS ORDERED: INSULIN LISPRO (humaLOG) 300 UNIT/3 ML VIAL SQ SCH (12:30)
--- NOTE | 2017-02-06 12:34 | P.PN ---
Katy Swann is a 56-year-old white male well-known to me, who presented to the wound center yesterday, February 04. He was found to have a glucose of 502. He was emaciated. He was sleepy. He had missed his follow-up visits in the office. His wound looked much worse. He was slightly hypotensive. He appeared to be septic. He was directly admitted and placed on the sepsis protocol. He is currently on Levaquin and vancomycin. Aquacel silver being applied to his wound. He received 3000 mL bolus normal saline and is currently on normal saline drip. Today he is doing better, but had some hyperglycemia overnight. He was on Accu- Cheks every 4 hours with insulin scale. He is tolerating a diet at this time. He complains of pain to his wound. Infectious disease has seen him in consult. He remains on opticell AG. We discussed the need for further placement, as it is obvious with his multiple admissions after being at home, he is not capable of caring for himself. Objective - Vital Signs Vital signs: Vital Signs Temp 97.8 F 02/06/17 07:00 Pulse 85 02/06/17 07:00 Resp 16 02/06/17 07:00 BP 139/72 02/06/17 07:00 Pulse Ox 95 02/06/17 07:00 Intake & Output 02/05/17 02/06/17 02/06/17 18:59 06:59 18:59 Intake Total 1249 710 Output Total 300 1801 Balance 949 -1091 Weight 53 kg 53 kg Intake: Intake, IV Titration 775 710 Amount Meropenem 1 gm In Sodium 450 Chloride 0.9% 100 ml @ 100 mls/hr IVPB Q8HR [facility] Rx#:[id number] Sodium Chloride 0.9% 1, 525 260 000 ml @ 75 mls/hr IV . [id number] [facility] Rx#:[id number] Vancomycin 1,000 mg In 250 Sodium Chloride 0.9% 250 ml @ 125 mls/hr IVPB ONCE ONE Rx#:[id number] Oral 474 Output: Urine 300 1800 Stool 1 Other: Voiding Method Urinal Urinal Diaper Diaper Incontinent Incontinent # Bowel Movements 2 - Exam GENERAL: Emaciated white male, no lower extremities NECK: Normal range of motion, supple without lymphadenopathy or JVD, no thyromegaly LUNGS: Breath sounds coarse to auscultation bilaterally and equal. No wheezes rales or rhonchi. HEART: Regular rate and rhythm without murmurs, rubs or gallops.S1S2 Normal ABDOMEN: Soft, , normoactive bowel sounds. No guarding, no rebound. No masses appreciated. Mildly tender in all quadrants EXTREMITIES: Bilateral AKA's, hands and arms are normal and free from wounds. There is approximately 2 cm area of eschar to his right AKA stump NEUROLOGICAL: Cranial nerves II through XII grossly intact. Normal speech, normal gait. PSYCH: Normal mood, normal affect. SKIN: There is a large wound to his coccyx measuring 8 x 7 x 0.5 cm with moderate amount of yellow fibrin slough and a moderate amount of red granulation tissue. Right posterior upper thigh wound measures approximately 2 x 2 by 0.2 cm - Labs CBC & Chem 7: 02/06/17 06:36 02/06/17 06:36 Labs: Abnormal Lab Results - Last 24 Hours (Table) 02/05/17 02/05/17 02/05/17 Range/Units 07:02 07:02 12:20 RBC (4.30-5.90) m/uL Hgb (13.0-17.5) gm/dL Hct (39.0-53.0) % ESR 19 H (0-15) mm/hr Sodium (137-145) mmol/L Chloride (98-107) mmol/L Carbon Dioxide (22-30) mmol/L BUN (9-20) mg/dL Glucose (74-99) mg/dL POC Glucose (mg/dL) 162 H (75-99) mg/dL Calcium (8.4-10.2) mg/dL C-Reactive Protein 29.9 H (<10.0) mg/L Prealbumin (18-36) mg/dL 02/05/17 02/05/17 02/06/17 Range/Units 16:34 20:03 00:03 RBC (4.30-5.90) m/uL Hgb (13.0-17.5) gm/dL Hct (39.0-53.0) % ESR (0-15) mm/hr Sodium (137-145) mmol/L Chloride (98-107) mmol/L Carbon Dioxide (22-30) mmol/L BUN (9-20) mg/dL Glucose (74-99) mg/dL POC Glucose (mg/dL) 221 H 192 H 375 H (75-99) mg/dL Calcium (8.4-10.2) mg/dL C-Reactive Protein (<10.0) mg/L Prealbumin (18-36) mg/dL 02/06/17 02/06/17 02/06/17 Range/Units 04:19 06:36 06:36 RBC 2.94 L (4.30-5.90) m/uL Hgb 8.8 L (13.0-17.5) gm/dL Hct 27.2 L (39.0-53.0) % ESR (0-15) mm/hr Sodium 135 L (137-145) mmol/L Chloride 110 H (98-107) mmol/L Carbon Dioxide 17 L (22-30) mmol/L BUN 34 H (9-20) mg/dL Glucose 312 H (74-99) mg/dL POC Glucose (mg/dL) 352 H (75-99) mg/dL Calcium 7.5 L (8.4-10.2) mg/dL C-Reactive Protein (<10.0) mg/L Prealbumin (18-36) mg/dL 02/06/17 02/06/17 02/06/17 Range/Units 06:36 07:26 11:52 RBC (4.30-5.90) m/uL Hgb (13.0-17.5) gm/dL Hct (39.0-53.0) % ESR (0-15) mm/hr Sodium (137-145) mmol/L Chloride (98-107) mmol/L Carbon Dioxide (22-30) mmol/L BUN (9-20) mg/dL Glucose (74-99) mg/dL POC Glucose (mg/dL) 354 H 479 H (75-99) mg/dL Calcium (8.4-10.2) mg/dL C-Reactive Protein (<10.0) mg/L Prealbumin 10 L (18-36) mg/dL Microbiology - Last 24 Hours (Table) 02/04/17 16:00 Blood Culture - Preliminary Blood No Growth after 24 hours 02/04/17 15:07 Blood Culture - Preliminary Blood No Growth after 24 hours Assessment and Plan Plan: Sepsis: He remains on sepsis protocol antibiotics due to suspected osteomyelitis. Continue IV fluids Osteomyelitis due to a stage IV pressure ulcer coccyx: He'll continue Aquacel silver to the wound. He is now on meropenem and vancomycin for antibiotics. ESR and CRP are elevated, we'll plan on repeating these UTI: He remains on antibiotics as above. Hyperosmolar hyperglycemia, Insulin dependent diabetes mellitus, poorly controlled: Lantus 40 daily, Accu-Cheks before meals and at bedtime, Humalog before meals and at bedtime 5 units plus scale. Scale is off after significant improvement in sugars. Neck low back pain: He'll continue on his methadone and gabapentin History of opioid abuse and heroin use: We will not give him any other opioids at this time other than his methadone. This is being used for back pain, not for opioid treatment. Medical debility: We'll investigate physical therapy for him. Hypertension: He will remain on carvedilol Hyperlipidemia: He'll remain on atorvastatin Protein calorie malnutrition: His prealbumin is 10, consult RD for recommendations Poor compliance: We'll consult social work obtained with this and to discuss options for when he is ready for discharge. GI prophylaxis: He'll remain on pantoprazole. Depression: I will add Lexapro, he'll continue on Seroquel DVT prophylaxis: We'll remain on aspirin I'll reevaluate him in the next 24 hours. We will expect placement on Wednesday.
[2017-02-06 13:31] LABS: Glucose,Whole Blood 487 mg/dL (75-99)
[2017-02-06] MEDS ORDERED: NA PHOS,M-B/NA PHOS,DI-BA 133 ML ENEMA RECTAL ONE (14:31)
[2017-02-06] MEDS ORDERED: VANCOMYCIN TROUGH DUE 1 EACH MISC MISCELLANE ONE (15:00)
[2017-02-06] MEDS ORDERED: INSULIN LISPRO (humaLOG) 300 UNIT/3 ML VIAL SQ ONE (15:21)
[2017-02-06 16:23] LABS: Glucose,Whole Blood 380 mg/dL (75-99)
[2017-02-06] MEDS: VANCOMYCIN 1,000 MG in SODIUM CHLORIDE 0.9% 250 ML IVPB SCH (16:55)
[2017-02-06] MEDS ORDERED: ZINC OXIDE 20% OINT 28.4 GM TUBE TOPICAL PRN (18:34)
--- NOTE | 2017-02-06 18:34 | P.PN ---
Subjective Principal diagnosis: Coccyx ulcer This is a 56-year-old male who is well-known to ID service as he has been seen on multiple occasions for lower extremity and coccyx wound infections. Patient was last seen by infectious disease in April 2016 at which time he was treated for coccyx decubitus ulcer stage IV and had a PICC line placed and was discharged on Unasyn 3 g every 6 hours for 28 days. He also had a Cardoza grade 2 diabetic ulcer to the right below the knee amputation. Patient was subsequently admitted June 12 at which time he underwent a right [id number] amputation with Dr. Stout. Pathology was positive for osteomyelitis. He was discharged with PICC line in place and Rocephin for a 10 day course. Patient was apparently discharged [facility] and discharged to home which is an apartment at [facility]. He has been [facility] under the care of Dr. Chong initially on August 17 and underwent coccyx wound debridement. Patient was to return on a weekly basis but missed 3 appointments due to transportation issues and a second appointment was on September 17. He also underwent an I&D of the coccyx wound at that time. Local wound care in the form of Hydrofera Blue. October he was again admittedwith some altered mental status And concerns to sepsis. He presented wound healing center today with worsening cellulitis to the coccyx area as well as new ulceration to the right upper thigh. Because he is admitted to hospital and evaluation was requested. The patient also had a blood sugar that was over 500 in with concerns to DKA was placed on an insulin drip feeling somewhat better today. Dressing changes done today. He is now stooling copiously as his relative obstruction is improving Objective - Vital Signs Vital signs: Vital Signs Temp 97.2 F L 02/06/17 15:00 Pulse 84 02/06/17 16:56 Resp 16 02/06/17 15:00 BP 152/83 02/06/17 16:56 Pulse Ox 100 02/06/17 15:00 Intake & Output 02/05/17 02/06/17 02/06/17 18:59 06:59 18:59 Intake Total 1249 710 Output Total 300 1801 400 Balance 101 -3216 -400 Weight 53 kg 53 kg Intake: Intake, IV Titration 775 710 Amount Meropenem 1 gm In Sodium 450 Chloride 0.9% 100 ml @ 100 mls/hr IVPB Q8HR [facility] Rx#:[id number] Sodium Chloride 0.9% 1, 525 260 000 ml @ 75 mls/hr IV . [id number] [facility] Rx#:[id number] Vancomycin 1,000 mg In 250 Sodium Chloride 0.9% 250 ml @ 125 mls/hr IVPB ONCE ONE Rx#:[id number] Oral 474 Output: Urine 300 1800 400 Stool 1 Other: Voiding Method Urinal Urinal Diaper Diaper Incontinent Incontinent # Bowel Movements 2 - Exam This is a 56-year-old emaciated male. He is sitting up in bed and is slow to respond. He appears to be in no acute distress. HEENT: Head is atraumatic, normocephalic. Pupils equal, round. Sclerae is anicteric. Mucous membranes of the mouth are dry. Dentition is in poor order. NECK: Supple. No JVD. No lymphadenopathy. No thyromegaly. LUNGS: Coarse sounds bilaterally with poor inspiratory effort. No intercostal retractions. HEART: Regular rate and rhythm. No murmur. ABDOMEN: Soft. Bowel sounds are present. No masses. No tenderness. EXTREMITIES: Bilateral lower extremity amputations noted. No open wounds or drainage from the stumps. No erythema. NEUROLOGICAL: Patient is now awake and alert. No cities of [facility]. State my name. She is having trouble with days. He does not remember yesterday well. The coccyx ulceration measures at 8 x7 x 0.5 cm.there is also a small ulceration of 2 x 2 x 0.2 cm on the right upper thigh posterior Is some concern to some necrosis to the exposed muscle to the coccyx. Computed tomography scan did not reveal evidence of underlying osteomyelitis this time. - Labs CBC & Chem 7: 02/06/17 06:36 02/06/17 13:45 Labs: Abnormal Lab Results - Last 24 Hours (Table) 02/05/17 02/06/17 02/06/17 Range/Units 20:03 00:03 04:19 RBC (4.30-5.90) m/uL Hgb (13.0-17.5) gm/dL Hct (39.0-53.0) % Sodium (137-145) mmol/L Chloride (98-107) mmol/L Carbon Dioxide (22-30) mmol/L BUN (9-20) mg/dL Glucose (74-99) mg/dL POC Glucose (mg/dL) 192 H 375 H 352 H (75-99) mg/dL Calcium (8.4-10.2) mg/dL Prealbumin (18-36) mg/dL 02/06/17 02/06/17 02/06/17 Range/Units 06:36 06:36 06:36 RBC 2.94 L (4.30-5.90) m/uL Hgb 8.8 L (13.0-17.5) gm/dL Hct 27.2 L (39.0-53.0) % Sodium 135 L (137-145) mmol/L Chloride 110 H (98-107) mmol/L Carbon Dioxide 17 L (22-30) mmol/L BUN 34 H (9-20) mg/dL Glucose 312 H (74-99) mg/dL POC Glucose (mg/dL) (75-99) mg/dL Calcium 7.5 L (8.4-10.2) mg/dL Prealbumin 10 L (18-36) mg/dL 02/06/17 02/06/17 02/06/17 Range/Units 07:26 11:52 13:28 RBC (4.30-5.90) m/uL Hgb (13.0-17.5) gm/dL Hct (39.0-53.0) % Sodium (137-145) mmol/L Chloride (98-107) mmol/L Carbon Dioxide (22-30) mmol/L BUN (9-20) mg/dL Glucose (74-99) mg/dL POC Glucose (mg/dL) 354 H 479 H 487 H (75-99) mg/dL Calcium (8.4-10.2) mg/dL Prealbumin (18-36) mg/dL 02/06/17 02/06/17 Range/Units 13:45 16:20 RBC (4.30-5.90) m/uL Hgb (13.0-17.5) gm/dL Hct (39.0-53.0) % Sodium (137-145) mmol/L Chloride (98-107) mmol/L Carbon Dioxide (22-30) mmol/L BUN (9-20) mg/dL Glucose 491 H* (74-99) mg/dL POC Glucose (mg/dL) 380 H (75-99) mg/dL Calcium (8.4-10.2) mg/dL Prealbumin (18-36) mg/dL Microbiology - Last 24 Hours (Table) 02/04/17 16:00 Blood Culture - Preliminary Blood No Growth after 48 hours 02/04/17 15:07 Blood Culture - Preliminary Blood No Growth after 48 hours Laboratory Results WBC 5.3 k/uL (3.8-10.6) 02/06/17 06:36 RBC 2.94 m/uL (4.30-5.90) L 02/06/17 06:36 Hgb 8.8 gm/dL (13.0-17.5) L 02/06/17 06:36 Hct 27.2 % (39.0-53.0) L 02/06/17 06:36 MCV 92.6 fL (80.0-100.0) 02/06/17 06:36 MCH 30.0 pg (25.0-35.0) 02/06/17 06:36 MCHC 32.4 g/dL (31.0-37.0) 02/06/17 06:36 RDW 14.8 % (11.5-15.5) 02/06/17 06:36 Plt Count 272 k/uL (150-450) 02/06/17 06:36 Neutrophils % 57 % 02/06/17 06:36 Lymphocytes % 30 % 02/06/17 06:36 Monocytes % 5 % 02/06/17 06:36 Eosinophils % 4 % 02/06/17 06:36 Basophils % 1 % 02/06/17 06:36 Neutrophils # 3.0 k/uL (1.3-7.7) 02/06/17 06:36 Lymphocytes # 1.6 k/uL (1.0-4.8) 02/06/17 06:36 Monocytes # 0.3 k/uL (0-1.0) 02/06/17 06:36 Eosinophils # 0.2 k/uL (0-0.7) 02/06/17 06:36 Basophils # 0.0 k/uL (0-0.2) 02/06/17 06:36 Hypochromasia Moderate 02/06/17 06:36 ESR 19 mm/hr (0-15) H 02/05/17 07:02 PT 10.0 sec (9.0-12.0) 02/04/17 15:07 INR 1.0 (<1.1) 02/04/17 15:07 APTT 23.5 sec (22.0-30.0) 02/04/17 15:07 Sodium 135 mmol/L (137-145) L 02/06/17 06:36 Potassium 4.3 mmol/L (3.5-5.1) 02/06/17 06:36 Chloride 110 mmol/L (98-107) H 02/06/17 06:36 Carbon Dioxide 17 mmol/L (22-30) L 02/06/17 06:36 Anion Gap 8 mmol/L 02/06/17 06:36 BUN 34 mg/dL (9-20) H 02/06/17 06:36 Creatinine 0.94 mg/dL (0.66-1.25) 02/06/17 06:36 Est GFR (MDRD) Af Amer >60 (>60 ml/min/1.73 sqM) 02/06/17 06:36 Est GFR (MDRD) Non-Af >60 (>60 ml/min/1.73 sqM) 02/06/17 06:36 Glucose 491 mg/dL (74-99) H* 02/06/17 13:45 POC Glucose (mg/dL) 380 mg/dL (75-99) H 02/06/17 16:20 POC Glu Mother Superior ROSALES Mary Ann Hernandez 02/06/17 16:[address] Glu mg/dL 309 mg/dL 02/04/17 15:07 Hemoglobin A1c 12.4 % (4.2-6.1) H 02/04/17 15:07 Plasma Lactic Acid Ayo 1.9 mmol/L (0.7-2.0) 02/04/17 20:54 Calcium 7.5 mg/dL (8.4-10.2) L 02/06/17 06:36 Magnesium 1.7 mg/dL (1.6-2.3) 02/05/17 07:02 Total Bilirubin 0.4 mg/dL (0.2-1.3) 02/04/17 15:07 AST 20 U/L (17-59) 02/04/17 15:07 ALT 37 U/L (21-72) 02/04/17 15:07 Alkaline Phosphatase 127 U/L (38-126) H 02/04/17 15:07 Total Creatine Kinase 114 U/L (55-170) 02/05/17 01:04 CK-MB (CK-2) 1.4 ng/mL (0.0-2.4) 02/05/17 01:04 CK-MB (CK-2) Rel Index 1.2 02/05/17 01:04 Troponin I <0.012 ng/mL (0.000-0.034) 02/05/17 01:04 C-Reactive Protein 29.9 mg/L (<10.0) H 02/05/17 07:02 Total Protein 7.0 g/dL (6.3-8.2) 02/04/17 15:07 Albumin 3.5 g/dL (3.5-5.0) 02/04/17 15:07 Prealbumin 10 mg/dL (18-36) L 02/06/17 06:36 TSH 0.721 mIU/L (0.465-4.680) 02/04/17 15:07 Cortisol 17 ug/dL 02/04/17 15:07 Urine Color Yellow 02/04/17 16:42 Urine Appearance Turbid (Clear) 02/04/17 16:42 Urine pH 6.0 (5.0-8.0) 02/04/17 16:42 Ur Specific [place] 1.013 (1.001-1.035) 02/04/17 16:42 Urine Protein Trace (Negative) H 02/04/17 16:42 Urine Glucose (UA) 4+ (Negative) H 02/04/17 16:42 Urine Ketones Negative (Negative) 02/04/17 16:42 Urine Blood Trace (Negative) H 02/04/17 16:42 Urine Nitrite Negative (Negative) 02/04/17 16:42 Urine Bilirubin Negative (Negative) 02/04/17 16:42 Urine Urobilinogen <2.0 mg/dL (<2.0) 02/04/17 16:42 Ur Leukocyte Esterase Large (Negative) H 02/04/17 16:42 Urine WBC >182 /hpf (0-5) H 02/04/17 16:42 Urine WBC Clumps Occasional /hpf (None) H 02/04/17 16:42 Vancomycin Trough 11.1 ug/mL 02/06/17 15:03 Urine Opiates Screen Detected (NotDetected) H 02/04/17 16:42 Ur Oxycodone Screen Not Detected (NotDetected) 02/04/17 16:42 Urine Methadone Screen Detected (NotDetected) H 02/04/17 16:42 Ur Propoxyphene Screen Not Detected (NotDetected) 02/04/17 16:42 Ur Barbiturates Screen Not Detected (NotDetected) 02/04/17 16:42 U Tricyclic Antidepress Not Detected (NotDetected) 02/04/17 16:42 Ur Phencyclidine Scrn Not Detected (NotDetected) 02/04/17 16:42 Ur Amphetamines Screen Not Detected (NotDetected) 02/04/17 16:42 U Methamphetamines Scrn Not Detected (NotDetected) 02/04/17 16:42 U Benzodiazepines Scrn Detected (NotDetected) H 02/04/17 16:42 Urine Cocaine Screen Not Detected (NotDetected) 02/04/17 16:42 U Marijuana (THC) Screen Not Detected (NotDetected) 02/04/17 16:42 Blood Type A Positive 02/04/17 15:07 Blood Type Recheck No 02/04/17 15:07 Antibody Screen NEGATIVE 02/04/17 15:07 Spec Expiration Date 02/07/2017230602/04/17 15:07 Microbiology 02/04/17 16:00 Blood Blood Culture - Preliminary No Growth after 48 hours 02/04/17 15:07 Blood Blood Culture - Preliminary No Growth after 48 hours 02/04/17 16:42 Urine,Clean Catch Urine Culture - Preliminary Assessment and Plan (1) Decubitus ulcer of sacral region, stage 4 Narrative/Plan: 56-year-old male with history of bilateral [id number]-qirc amputation' s presents to hospital with evidence of hyperglycemia with nonketotic hyperosmolality. As well as some cellulitis to his coccyx area is a chronic ulceration. No ulceration to the thighs noted. The silver alginate is applied to the coccyx ulcer. Syncopal reapplied to the thigh ulcer since we cannot keep the dressing in place. Patient may need further surgical debridement of this ulceration once he is more medically stable Current antibiotic therapy is with levofloxacin and vancomycin. I will continue all cultures from process. He has an air mattress. Continue ongoing supportive care. Needs ongoing improvement of his diabetic status. This however is an ongoing issue with many Occasions over time. Status: Acute (2) Type 2 diabetes mellitus with hyperosmolar nonketotic hyperglycemia Status: Acute
[2017-02-06 20:12] LABS: Glucose,Whole Blood 287 mg/dL (75-99)
[2017-02-06] MEDS: ATORVASTATIN 40 MG TAB PO SCH (20:23)
[2017-02-06] MEDS: INSULIN DETEMIR 100 UNIT/ML 10 ML VIAL SQ SCH (20:23)
[2017-02-06] MEDS: QUEtiapine 200 MG TAB PO SCH (20:25)
[2017-02-06] MEDS: ZINC OXIDE 20% OINT 28.4 GM TUBE TOPICAL SCH (20:26)
[2017-02-06] MEDS ORDERED: METHADONE 10 MG TAB PO ONE (20:45)
[2017-02-07] MEDS: INSULIN LISPRO (humaLOG) 300 UNIT/3 ML VIAL SQ SCH ×10 (00:08→21:52)
[2017-02-07 00:09] LABS: Glucose,Whole Blood 181 mg/dL (75-99)
[2017-02-07] MEDS: MEROPENEM 1 GM in SODIUM CHLORIDE 0.9% 100 ML IVPB SCH ×4 (00:11→23:30)
[2017-02-07] MEDS: METHADONE 10 MG TAB PO SCH ×4 (00:12→23:12)
[2017-02-07 04:10] LABS: Glucose,Whole Blood 141 mg/dL (75-99)
[2017-02-07] MEDS: SODIUM CHLORIDE 0.9% 1,000 ML IV SCH ×3 (05:26→21:53)
[2017-02-07] MEDS: VANCOMYCIN 1,000 MG in SODIUM CHLORIDE 0.9% 250 ML IVPB SCH ×2 (05:27→17:18)
[2017-02-07] MEDS: ZINC OXIDE 20% OINT 28.4 GM TUBE TOPICAL SCH ×2 (07:09→23:13)
[2017-02-07] MEDS: NICOTINE 21MG/24HR PATCH TRANSDERM SCH (07:10)
[2017-02-07] MEDS: ASPIRIN 81 MG CHEW PO SCH (07:10)
[2017-02-07 07:11] LABS: Glucose,Whole Blood 124 mg/dL (75-99)
[2017-02-07] MEDS: PANTOPRAZOLE 40 MG TABLET PO SCH (07:11)
[2017-02-07] MEDS: GABAPENTIN 300 MG CAP PO SCH ×3 (07:11→21:53)
[2017-02-07] MEDS: CARVEDILOL 6.25 MG TAB PO SCH ×2 (07:11→17:18)
[2017-02-07 09:23] LABS: Anion Gap 8 mmol/L; Blood Urea Nitrogen 30 mg/dL (9-20); Calcium 8.2 mg/dL (8.4-10.2); Carbon Dioxide 15 mmol/L (22-30); Chloride 114 mmol/L (98-107); Glucose 95 mg/dL (74-99); Non-African American GFR(MDRD) >60 (>60 ml/min/1.73 sqM); Potassium 3.9 mmol/L (3.5-5.1); Sodium 137 mmol/L (137-145)
[2017-02-07 09:31] LABS: Basophils % (A) 1 %; CH 28.7; CHCM 30.9; Eosinophils # (A) 0.2 k/uL (0-0.7); Eosinophils % (A) 4 %; HCT 29.4 % (39.0-53.0); HDW 3.05; HGB 9.3 gm/dL (13.0-17.5); Hypochromasia Moderate; Luc # (Auto) 0.13; Luc % (Auto) 2; Lymphocytes # (A) 1.9 k/uL (1.0-4.8); Lymphocytes % (A) 30 %; MCH 29.7 pg (25.0-35.0); MCHC 31.7 g/dL (31.0-37.0); MCV 93.6 fL (80.0-100.0); Mean Platelet Volume 7.2; Monocytes # (A) 0.3 k/uL (0-1.0); Monocytes % (A) 5 %; Neutrophils # (A) 3.8 k/uL (1.3-7.7); Neutrophils % (A) 58 %; RBC 3.14 m/uL (4.30-5.90); RDW 14.4 % (11.5-15.5); WBC 6.5 k/uL (3.8-10.6); WBC (Perox) 6.05
[2017-02-07 09:36] LABS: C Reactive Protein 31.8 mg/L (<10.0)
[2017-02-07 09:52] LABS: Polychromasia Present; Toxic Granulation Present
[2017-02-07 10:49] LABS: Erythrocyte Sedimentation Rate 23 mm/hr (0-15)
[2017-02-07 12:05] LABS: Glucose,Whole Blood 234 mg/dL (75-99)
--- NOTE | 2017-02-07 12:27 | P.PN ---
Katy Swann is a 56-year-old white male well-known to me, who presented to the wound center yesterday, February 04. He was found to have a glucose of 502. He was emaciated. He was sleepy. He had missed his follow-up visits in the office. His wound looked much worse. He was slightly hypotensive. He appeared to be septic. He was directly admitted and placed on the sepsis protocol. He is currently on Levaquin and vancomycin. Aquacel silver being applied to his wound. He received 3000 mL bolus normal saline and is currently on normal saline drip. He is been rather hyperglycemic. Humalog scale +10 units was added and seemed to improve his glucose. Tissue cultures taken the wound center were positive for Pseudomonas, rare quantity. It is susceptible to meropenem. He continues on this and vancomycin. Urine culture shows mixed contamination He is very strongly wishing to go home soon. We discussed him getting a new electric wheelchair. We discussed the problem with needs placement based on severity of his wound, and possibly a flap. Objective - Vital Signs Vital signs: Vital Signs Temp 97.6 F 02/07/17 10:35 Pulse 81 02/07/17 10:35 Resp 18 02/07/17 10:35 BP 125/70 02/07/17 10:35 Pulse Ox 98 02/07/17 10:35 Intake & Output 02/06/17 02/07/17 02/07/17 18:59 06:59 18:59 Intake Total 860 Output Total 400 2 625 Balance -400 858 -625 Weight 53 kg Intake: Intake, IV Titration 860 Amount Sodium Chloride 0.9% 1, 600 000 ml @ 75 mls/hr IV . [id number] [facility] Rx#:[id number] Vancomycin 1,000 mg In 260 Sodium Chloride 0.9% 250 ml @ 125 mls/hr IVPB Q12H [facility] Rx#:[id number] Output: Urine 400 625 Stool 2 Other: Voiding Method Urinal Diaper Incontinent # Voids 1 # Bowel Movements 2 - Labs CBC & Chem 7: 02/07/17 08:33 02/07/17 08:33 Labs: Abnormal Lab Results - Last 24 Hours (Table) 02/06/17 02/06/17 02/06/17 Range/Units 13:28 13:45 16:20 RBC (4.30-5.90) m/uL Hgb (13.0-17.5) gm/dL Hct (39.0-53.0) % ESR (0-15) mm/hr Chloride (98-107) mmol/L Carbon Dioxide (22-30) mmol/L BUN (9-20) mg/dL Glucose 491 H* (74-99) mg/dL POC Glucose (mg/dL) 487 H 380 H (75-99) mg/dL Calcium (8.4-10.2) mg/dL C-Reactive Protein (<10.0) mg/L 02/06/17 02/07/17 02/07/17 Range/Units 20:09 00:02 04:03 RBC (4.30-5.90) m/uL Hgb (13.0-17.5) gm/dL Hct (39.0-53.0) % ESR (0-15) mm/hr Chloride (98-107) mmol/L Carbon Dioxide (22-30) mmol/L BUN (9-20) mg/dL Glucose (74-99) mg/dL POC Glucose (mg/dL) 287 H 181 H 141 H (75-99) mg/dL Calcium (8.4-10.2) mg/dL C-Reactive Protein (<10.0) mg/L 02/07/17 02/07/17 02/07/17 Range/Units 06:51 08:33 08:33 RBC 3.14 L (4.30-5.90) m/uL Hgb 9.3 L (13.0-17.5) gm/dL Hct 29.4 L (39.0-53.0) % ESR 23 H (0-15) mm/hr Chloride 114 H (98-107) mmol/L Carbon Dioxide 15 L (22-30) mmol/L BUN 30 H (9-20) mg/dL Glucose (74-99) mg/dL POC Glucose (mg/dL) 124 H (75-99) mg/dL Calcium 8.2 L (8.4-10.2) mg/dL C-Reactive Protein 31.8 H (<10.0) mg/L 02/07/17 Range/Units 11:58 RBC (4.30-5.90) m/uL Hgb (13.0-17.5) gm/dL Hct (39.0-53.0) % ESR (0-15) mm/hr Chloride (98-107) mmol/L Carbon Dioxide (22-30) mmol/L BUN (9-20) mg/dL Glucose (74-99) mg/dL POC Glucose (mg/dL) 234 H (75-99) mg/dL Calcium (8.4-10.2) mg/dL C-Reactive Protein (<10.0) mg/L Microbiology - Last 24 Hours (Table) 02/04/17 16:42 Urine Culture - Final Urine,Clean Catch Karina sp,not albicans/galbr 02/04/17 16:00 Blood Culture - Preliminary Blood No Growth after 48 hours 02/04/17 15:07 Blood Culture - Preliminary Blood No Growth after 48 hours Assessment and Plan Plan: Sepsis: Resolving Suspected Osteomyelitis due to a stage IV pressure ulcer coccyx in insulin- dependent diabetic: He'll continue opticell silver to the wound, meropenem and vancomycin for antibiotics. Infectious diseases following, CT scan was negative for osteomyelitis UTI: He remains on antibiotics as above. Cultures were not helpful Hyperosmolar hyperglycemia, Insulin dependent diabetes mellitus, poorly controlled: Lantus 40 daily, Accu-Cheks before meals and at bedtime, Humalog before meals and at bedtime 10 units plus scale. Neck low back pain: He'll continue on his methadone and gabapentin Anemia of chronic disease: Hemoglobin is 9.3, no other treatment at this time. History of opioid abuse and heroin use: continue methadone only at this time. This is being used for back pain, not for opioid dependence treatment. Medical debility: We'll investigate physical therapy for him. Hypertension: He will remain on carvedilol Hyperlipidemia: He'll remain on atorvastatin Protein calorie malnutrition: His prealbumin is 10, consult RD for recommendations noncompliance: We'll consult social work obtained with this and to discuss options for when he is ready for discharge. He will most likely need placement. He does not show up regularly for his appointments. He fails to do adequate wound care. GI prophylaxis: He'll remain on pantoprazole. Depression: I will add Wellbutrin XL, he'll continue on Seroquel DVT prophylaxis: We'll remain on aspirin I'll reevaluate him in the next 24 hours. We will expect placement on Wednesday.
[2017-02-07] MEDS: MULTIVITAMINS, THERA 1 EACH TAB PO SCH (13:23)
[2017-02-07] MEDS: buPROPion XL 150 MG TAB.ER.24H PO SCH (13:23)
[2017-02-07 16:56] LABS: Glucose,Whole Blood 247 mg/dL (75-99)
[2017-02-07 21:32] LABS: Glucose,Whole Blood 151 mg/dL (75-99)
[2017-02-07] MEDS: INSULIN DETEMIR 100 UNIT/ML 10 ML VIAL SQ SCH (21:52)
[2017-02-07] MEDS: QUEtiapine 200 MG TAB PO SCH (21:53)
[2017-02-07] MEDS: ATORVASTATIN 40 MG TAB PO SCH (21:53)
[2017-02-08 02:30] LABS: Glucose,Whole Blood 242 mg/dL (75-99)
[2017-02-08] MEDS: VANCOMYCIN 1,000 MG in SODIUM CHLORIDE 0.9% 250 ML IVPB SCH ×2 (05:34→17:35)
[2017-02-08 07:35] LABS: Glucose,Whole Blood 206 mg/dL (75-99)
--- NOTE | 2017-02-08 10:03 | CDI ---
In responding to this query, please exercise your independent professional judgment. The [facility] Coding Staff and Clinical Documentation Specialists appreciate your assistance in clarifying documentation, maintaining compliance with coding guidelines, accurately documenting patients condition and capturing severity of illness. The fact that a question is asked does not imply that any particular answer is desired or expected. Communication forms are a method of clarifying documentation and are not made part of the Legal Health Record. Thank you in advance for your clarification. Last Revision, September 2015 Suyapa Mata [address] [facility] [place] [address] Documentation Clarification Form Date: 02/08/2017 9:54:00 AM From: Madisyn Chatman Admit Date: 02/04/2017 12:29:00 PM Patient Name: Ambrose Berry Visit Number: [id number] Dr. Brent Chong History/Risk Factors: Diabetes Mellitus Smoker Clinical Indicators: Patient presents with a BUN/CR/GFR of: 46/1.40/52 Treatment: IV fluid and bolus In order to capture the severity of condition, please clarify if the condition signifies: Acute renal failure Please specify (if known): Cortical, Medullary, or Tubular Necrosis? Acute on chronic renal failure Chronic kidney disease (CKD) and please stage Stage 1 GFR >90 Stage 2 GFR 60-89 Stage 3 GFR 30-59 Stage 4 GFR 15-29 Stage 5 GFR <15 Unable to determine Other, specify Please document in your progress notes and discharge summary in order to capture severity of illness and risk of mortality. Include clinical findings that support your diagnosis. FYI: Press F11 to launch patient chart. __X___ Place X here if this finding has no clinical significance, is not applicable or if you are not able to provide any additional documentation. OSEI
--- NOTE | 2017-02-08 10:08 | CDI ---
In responding to this query, please exercise your independent professional judgment. The [facility] Coding Staff and Clinical Documentation Specialists appreciate your assistance in clarifying documentation, maintaining compliance with coding guidelines, accurately documenting patients condition and capturing severity of illness. The fact that a question is asked does not imply that any particular answer is desired or expected. Communication forms are a method of clarifying documentation and are not made part of the Legal Health Record. Thank you in advance for your clarification. Last Revision, September 2015 Suyapapedro luis Mata [address] [facility] [place] [address] Documentation Clarification Form Date: 02/08/2017 10:04:00 AM From: Madisyn Chatman Admit Date: 02/04/2017 12:29:00 PM Patient Name: Ambrose Berry Visit Number: [id number] Dr. Brent Chong Clinical Indicators: On 02/04 Lab Results showed Sodium level of 125 Treatment: IV fluids and bolus Clinical significance of diagnostic testing and treatment CANNOT be assumed or coded without physician documentation of significance if any. Please clarify what abnormal laboratory signifies: Abnormal Lab Value (please specify diagnosis) Unable to determine Other, please specify Please document in your progress notes and discharge summary in order to capture severity of illness and risk of mortality. Include clinical findings that support your diagnosis. FYI: Press F11 to launch patient chart ___X__ Place X here if this finding has no clinical significance, is not applicable or if you are not able to provide any additional documentation. MTDD
[2017-02-08] MEDS: MEROPENEM 1 GM in SODIUM CHLORIDE 0.9% 100 ML IVPB SCH ×3 (11:08→23:14)
[2017-02-08] MEDS: ZINC OXIDE 20% OINT 28.4 GM TUBE TOPICAL SCH ×2 (11:09→21:55)
[2017-02-08] MEDS: METHADONE 10 MG TAB PO SCH ×3 (11:09→23:13)
[2017-02-08] MEDS: PANTOPRAZOLE 40 MG TABLET PO SCH (11:11)
[2017-02-08] MEDS: buPROPion XL 150 MG TAB.ER.24H PO SCH (11:11)
[2017-02-08] MEDS: ASPIRIN 81 MG CHEW PO SCH (11:11)
[2017-02-08] MEDS: NICOTINE 21MG/24HR PATCH TRANSDERM SCH (11:11)
[2017-02-08] MEDS: CARVEDILOL 6.25 MG TAB PO SCH ×2 (11:11→17:35)
[2017-02-08] MEDS: GABAPENTIN 300 MG CAP PO SCH ×3 (11:11→21:55)
[2017-02-08] MEDS: INSULIN LISPRO (humaLOG) 300 UNIT/3 ML VIAL SQ SCH ×8 (11:16→21:53)
[2017-02-08 12:05] LABS: Glucose,Whole Blood 351 mg/dL (75-99)
[2017-02-08] MEDS: SODIUM CHLORIDE 0.9% 1,000 ML IV SCH ×2 (12:22→23:14)
[2017-02-08] MEDS: MULTIVITAMINS, THERA 1 EACH TAB PO SCH (12:23)
--- NOTE | 2017-02-08 13:48 | P.PN ---
Katy Swann is a 56-year-old white male well-known to me, who presented to the wound center yesterday, February 04. He was found to have a glucose of 502. He was emaciated. He was sleepy. He had missed his follow-up visits in the office. His wound looked much worse. He was slightly hypotensive. He appeared to be septic. He was directly admitted and placed on the sepsis protocol. He is currently on Levaquin and vancomycin. Aquacel silver being applied to his wound. He received 3000 mL bolus normal saline and is currently on normal saline drip. He is been rather hyperglycemic. Humalog scale +10 units was added and seemed to improve his glucose. Tissue cultures taken the wound center were positive for Pseudomonas, rare quantity. It is susceptible to meropenem. He continues on this and vancomycin. Urine culture shows mixed contamination He left AMA last night, but returned 30 minutes later, not actually leaving the hospital grounds, so he was REadmitted without D/C/ Today, he seems to understand why he needs rehab.He understands he is not compliant with treatment. I d/w him my concern depression is a factor and started him on wellbutrin XL. No chest pain, pressure, sob. some wound pain when lying flat. Objective - Vital Signs Vital signs: Vital Signs Temp 100.2 F H 02/08/17 07:00 Pulse 84 02/08/17 07:00 Resp 16 02/08/17 07:00 BP 112/63 02/08/17 07:00 Pulse Ox 98 02/08/17 07:00 Intake & Output 02/07/17 02/08/17 02/08/17 18:59 06:59 18:59 Intake Total 830 100 200 Output Total 2351 2500 Balance -1521 -2400 200 Intake: IV 100 Meropenem 1 gm In Sodium 100 Chloride 0.9% 100 ml @ 100 mls/hr IVPB Q8HR [facility] Rx#:[id number] Intake, IV Titration 350 Amount Meropenem 1 gm In Sodium 100 Chloride 0.9% 100 ml @ 100 mls/hr IVPB Q8HR [facility] Rx#:[id number] Vancomycin 1,000 mg In 250 Sodium Chloride 0.9% 250 ml @ 125 mls/hr IVPB Q16H [facility] Rx#:[id number] Oral 480 200 Output: Urine 2350 2500 Stool 1 Other: Voiding Method Urinal Urinal Diaper Incontinent # Voids 1 3 # Bowel Movements 1 1 - Exam GENERAL: Emaciated white male, no lower extremities NECK: Normal range of motion, supple without lymphadenopathy or JVD, no thyromegaly LUNGS: Breath sounds coarse to auscultation bilaterally and equal. No wheezes rales or rhonchi. HEART: Regular rate and rhythm without murmurs, rubs or gallops.S1S2 Normal ABDOMEN: Soft, , normoactive bowel sounds. No guarding, no rebound. No masses appreciated. Mildly tender in all quadrants EXTREMITIES: Bilateral AKA's, hands and arms are normal and free from wounds. There is approximately 2 cm area of eschar to his right AKA stump NEUROLOGICAL: Cranial nerves II through XII grossly intact. Normal speech, normal gait. PSYCH: Normal mood, normal affect. SKIN: WOUND NOT EXAMINED TODAY, dressing intact. - Labs CBC & Chem 7: 02/07/17 08:33 02/07/17 08:33 Labs: Abnormal Lab Results - Last 24 Hours (Table) 02/07/17 02/07/17 02/08/17 Range/Units 16:53 20:55 02:18 POC Glucose (mg/dL) 247 H 151 H 242 H (75-99) mg/dL 02/08/17 02/08/17 Range/Units 07:31 12:03 POC Glucose (mg/dL) 206 H 351 H (75-99) mg/dL Microbiology - Last 24 Hours (Table) 02/04/17 16:00 Blood Culture - Preliminary Blood No Growth after 72 hours 02/04/17 15:07 Blood Culture - Preliminary Blood No Growth after 72 hours Assessment and Plan Plan: Sepsis: Resolving Suspected Osteomyelitis due to a stage IV pressure ulcer coccyx in insulin- dependent diabetic: He'll continue opticell silver to the wound, meropenem and vancomycin for antibiotics. Infectious diseases following, CT scan was negative for osteomyelitis, await MRI UTI: He remains on antibiotics as above. Cultures were not helpful Hyperosmolar hyperglycemia, Insulin dependent diabetes mellitus, poorly controlled: Lantus 40 daily, Accu-Cheks before meals and at bedtime, Humalog before meals and at bedtime 10 units plus scale. Neck low back pain: He'll continue on his methadone and gabapentin Anemia of chronic disease: Hemoglobin is 9.3, no other treatment at this time. History of opioid abuse and heroin use: continue methadone only at this time. This is being used for back pain, not for opioid dependence treatment. Medical debility: We'll investigate physical therapy for him. Hypertension: He will remain on carvedilol Hyperlipidemia: He'll remain on atorvastatin Protein calorie malnutrition: His prealbumin is 10, consult RD for recommendations noncompliance: We'll consult social work obtained with this and to discuss options for when he is ready for discharge. He will most likely need placement. He does not show up regularly for his appointments. He fails to do adequate wound care. GI prophylaxis: He'll remain on pantoprazole. Depression: I will add Wellbutrin XL, he'll continue on Seroquel DVT prophylaxis: We'll remain on aspirin Noncompliance with Treatment and F/u: we will plan on ECF for wound care and anitibiotic treatment. I'll reevaluate him in the next 24 hours. We will expect placement in the next 24hrs.
--- NOTE | 2017-02-08 15:25 | MR ---
EXAMINATION TYPE: MR sacrum/coccyx wo/w con DATE OF EXAM: 02/08/2017 3:09 PM COMPARISON: NONE HISTORY: pt in severe pain exam done with pt PRONE, Best poss scan CONTRAST: Standard multiplanar, multisequence MRI departmental protocol utilizing 15 mL intravenous MultiHance gadolinium contrast. FINDINGS: Large fecal bolus is within the rectum. Sacroiliac joints appear unremarkable. Signal within the sacrum and coccyx appears normal. Note is made of L5-S1 disc changes with some disc bulging posteriorly. No acute fractures are evident . No abnormal enhancement is evident. Posterior decubitus ulcer is evident along the central and left paracentral subcutaneous tissues. Thi s is at the lower end of the sacrum. There appears to be a small area of increased signal the sacrum from the ulceration. Acute osteomyelitis is not identified. Signal abnormality within the sacrum is not identified. Some subtle signal abnormality posterior to the S5 level is present on T2-w eighted sequences. Series 401 image 12. Suspicious changes for acute osteomyelitis is not evident. Appears to be some aliasing or motion artifact present during this exam causing limitation on the meme luation. IMPRESSION: Superficial ulceration along the posterior inferior sacral region. No acute osteomyelitis at this lev el of the sacrum is evident.
[2017-02-08] MEDS ORDERED: VANCOMYCIN TROUGH DUE 1 EACH MISC MISCELLANE ONE (17:00)
[2017-02-08 17:34] LABS: Glucose,Whole Blood 282 mg/dL (75-99)
[2017-02-08 21:05] LABS: Glucose,Whole Blood 259 mg/dL (75-99)
--- NOTE | 2017-02-08 21:37 | P.PN ---
Subjective Principal diagnosis: Coccyx ulcer This is a 56-year-old male who is well-known to ID service as he has been seen on multiple occasions for lower extremity and coccyx wound infections. Patient was last seen by infectious disease in April 2016 at which time he was treated for coccyx decubitus ulcer stage IV and had a PICC line placed and was discharged on Unasyn 3 g every 6 hours for 28 days. He also had a Cardoza grade 2 diabetic ulcer to the right below the knee amputation. Patient was subsequently admitted June 12 at which time he underwent a right [id number] amputation with Dr. Stout. Pathology was positive for osteomyelitis. He was discharged with PICC line in place and Rocephin for a 10 day course. Patient was apparently discharged [facility] and discharged to home which is an apartment at [facility]. He has been seen in the [facility] under the care of Dr. Chong initially on August 17 and underwent coccyx wound debridement. Patient was to return on a weekly basis but missed 3 appointments due to transportation issues and a second appointment was on September 17. He also underwent an I&D of the coccyx wound at that time. Local wound care in the form of Hydrofera Blue. October he was again admittedwith some altered mental status And concerns to sepsis. He presented wound healing center today with worsening cellulitis to the coccyx area as well as new ulceration to the right upper thigh. Because he is admitted to hospital and evaluation was requested. The patient also had a blood sugar that was over 500 in with concerns to DKA was placed on an insulin drip feeling somewhat better today. Dressing changes done today. His obstipation is resolved He is looking forward [facility] with [facility] success. Objective - Vital Signs Vital signs: Vital Signs Temp 98.3 F 02/08/17 15:00 Pulse 84 02/08/17 15:00 Resp 20 02/08/17 15:00 BP 121/65 02/08/17 15:00 Pulse Ox 98 02/08/17 15:00 Intake & Output 02/08/17 02/08/17 02/09/17 06:59 18:59 06:59 Intake Total 100 200 Output Total 2500 1000 Balance -2400 -800 Intake: IV 100 Meropenem 1 gm In Sodium 100 Chloride 0.9% 100 ml @ 100 mls/hr IVPB Q8HR [facility] Rx#:[id number] Oral 200 Output: Urine 2500 1000 Other: Voiding Method Urinal # Voids 3 # Bowel Movements 1 1 - Exam This is a 56-year-old emaciated male. He is sitting up in bed and is slow to respond. He appears to be in no acute distress. HEENT: Head is atraumatic, normocephalic. Pupils equal, round. Sclerae is anicteric. Mucous membranes of the mouth are dry. Dentition is in poor order. NECK: Supple. No JVD. No lymphadenopathy. No thyromegaly. LUNGS: Coarse sounds bilaterally with poor inspiratory effort. No intercostal retractions. HEART: Regular rate and rhythm. No murmur. ABDOMEN: Soft. Bowel sounds are present. No masses. No tenderness. EXTREMITIES: Bilateral lower extremity amputations noted. No open wounds or drainage from the stumps. No erythema. NEUROLOGICAL: Patient is now awake and alert. No [facility]. State my name. She is having trouble with days. He does not remember yesterday well. The coccyx ulceration measures at 8 x7 x 0.5 cm.there is also a small ulceration of 2 x 2 x 0.2 cm on the right upper thigh posterior without acute change Is some concern to some necrosis to the exposed muscle to the coccyx. Computed tomography scan did not reveal evidence of underlying osteomyelitis this time. - Labs CBC & Chem 7: 02/07/17 08:33 02/07/17 08:33 Labs: Abnormal Lab Results - Last 24 Hours (Table) 02/08/17 02/08/17 02/08/17 Range/Units 02:18 07:31 12:03 POC Glucose (mg/dL) 242 H 206 H 351 H (75-99) mg/dL 02/08/17 02/08/17 Range/Units 17:08 21:04 POC Glucose (mg/dL) 282 H 259 H (75-99) mg/dL Microbiology - Last 24 Hours (Table) 02/04/17 16:00 Blood Culture - Preliminary Blood No Growth after 96 hours 02/04/17 15:07 Blood Culture - Preliminary Blood No Growth after 96 hours Laboratory Results WBC 6.5 k/uL (3.8-10.6) 02/07/17 08:33 RBC 3.14 m/uL (4.30-5.90) L 02/07/17 08:33 Hgb 9.3 gm/dL (13.0-17.5) L 02/07/17 08:33 Hct 29.4 % (39.0-53.0) L 02/07/17 08:33 MCV 93.6 fL (80.0-100.0) 02/07/17 08:33 MCH 29.7 pg (25.0-35.0) 02/07/17 08:33 MCHC 31.7 g/dL (31.0-37.0) 02/07/17 08:33 RDW 14.4 % (11.5-15.5) 02/07/17 08:33 Plt Count 307 k/uL (150-450) 02/07/17 08:33 Neutrophils % 58 % 02/07/17 08:33 Lymphocytes % 30 % 02/07/17 08:33 Monocytes % 5 % 02/07/17 08:33 Eosinophils % 4 % 02/07/17 08:33 Basophils % 1 % 02/07/17 08:33 Neutrophils # 3.8 k/uL (1.3-7.7) 02/07/17 08:33 Lymphocytes # 1.9 k/uL (1.0-4.8) 02/07/17 08:33 Monocytes # 0.3 k/uL (0-1.0) 02/07/17 08:33 Eosinophils # 0.2 k/uL (0-0.7) 02/07/17 08:33 Basophils # 0.0 k/uL (0-0.2) 02/07/17 08:33 Toxic Granulation Present 02/07/17 08:33 Polychromasia Present 02/07/17 08:33 Hypochromasia Moderate 02/07/17 08:33 ESR 23 mm/hr (0-15) H 02/07/17 08:33 PT 10.0 sec (9.0-12.0) 02/04/17 15:07 INR 1.0 (<1.1) 02/04/17 15:07 APTT 23.5 sec (22.0-30.0) 02/04/17 15:07 Sodium 137 mmol/L (137-145) 02/07/17 08:33 Potassium 3.9 mmol/L (3.5-5.1) 02/07/17 08:33 Chloride 114 mmol/L (98-107) H 02/07/17 08:33 Carbon Dioxide 15 mmol/L (22-30) L 02/07/17 08:33 Anion Gap 8 mmol/L 02/07/17 08:33 BUN 30 mg/dL (9-20) H 02/07/17 08:33 Creatinine 0.76 mg/dL (0.66-1.25) 02/07/17 08:33 Est GFR (MDRD) Af Amer >60 (>60 ml/min/1.73 sqM) 02/07/17 08:33 Est GFR (MDRD) Non-Af >60 (>60 ml/min/1.73 sqM) 02/07/17 08:33 Glucose 95 mg/dL (74-99) 02/07/17 08:33 POC Glucose (mg/dL) 259 mg/dL (75-99) H 02/08/17 21:04 POC Glu [employer] Gladys Walker 02/08/17 21:[address] Glu mg/dL 309 mg/dL 02/04/17 15:07 Hemoglobin A1c 12.4 % (4.2-6.1) H 02/04/17 15:07 Plasma Lactic Acid Ayo 1.9 mmol/L (0.7-2.0) 02/04/17 20:54 Calcium 8.2 mg/dL (8.4-10.2) L 02/07/17 08:33 Magnesium 1.7 mg/dL (1.6-2.3) 02/05/17 07:02 Total Bilirubin 0.4 mg/dL (0.2-1.3) 02/04/17 15:07 AST 20 U/L (17-59) 02/04/17 15:07 ALT 37 U/L (21-72) 02/04/17 15:07 Alkaline Phosphatase 127 U/L (38-126) H 02/04/17 15:07 Total Creatine Kinase 114 U/L (55-170) 02/05/17 01:04 CK-MB (CK-2) 1.4 ng/mL (0.0-2.4) 02/05/17 01:04 CK-MB (CK-2) Rel Index 1.2 02/05/17 01:04 Troponin I <0.012 ng/mL (0.000-0.034) 02/05/17 01:04 C-Reactive Protein 31.8 mg/L (<10.0) H 02/07/17 08:33 Total Protein 7.0 g/dL (6.3-8.2) 02/04/17 15:07 Albumin 3.5 g/dL (3.5-5.0) 02/04/17 15:07 Prealbumin 10 mg/dL (18-36) L 02/06/17 06:36 TSH 0.721 mIU/L (0.465-4.680) 02/04/17 15:07 Cortisol 17 ug/dL 02/04/17 15:07 Urine Color Yellow 02/04/17 16:42 Urine Appearance Turbid (Clear) 02/04/17 16:42 Urine pH 6.0 (5.0-8.0) 02/04/17 16:42 Ur Specific [place] 1.013 (1.001-1.035) 02/04/17 16:42 Urine Protein Trace (Negative) H 02/04/17 16:42 Urine Glucose (UA) 4+ (Negative) H 02/04/17 16:42 Urine Ketones Negative (Negative) 02/04/17 16:42 Urine Blood Trace (Negative) H 02/04/17 16:42 Urine Nitrite Negative (Negative) 02/04/17 16:42 Urine Bilirubin Negative (Negative) 02/04/17 16:42 Urine Urobilinogen <2.0 mg/dL (<2.0) 02/04/17 16:42 Ur Leukocyte Esterase Large (Negative) H 02/04/17 16:42 Urine WBC >182 /hpf (0-5) H 02/04/17 16:42 Urine WBC Clumps Occasional /hpf (None) H 02/04/17 16:42 Vancomycin Trough 15.3 ug/mL 02/08/17 17:22 Urine Opiates Screen Detected (NotDetected) H 02/04/17 16:42 Ur Oxycodone Screen Not Detected (NotDetected) 02/04/17 16:42 Urine Methadone Screen Detected (NotDetected) H 02/04/17 16:42 Ur Propoxyphene Screen Not Detected (NotDetected) 02/04/17 16:42 Ur Barbiturates Screen Not Detected (NotDetected) 02/04/17 16:42 U Tricyclic Antidepress Not Detected (NotDetected) 02/04/17 16:42 Ur Phencyclidine Scrn Not Detected (NotDetected) 02/04/17 16:42 Ur Amphetamines Screen Not Detected (NotDetected) 02/04/17 16:42 U Methamphetamines Scrn Not Detected (NotDetected) 02/04/17 16:42 U Benzodiazepines Scrn Detected (NotDetected) H 02/04/17 16:42 Urine Cocaine Screen Not Detected (NotDetected) 02/04/17 16:42 U Marijuana (THC) Screen Not Detected (NotDetected) 02/04/17 16:42 Blood Type A Positive 02/04/17 15:07 Blood Type Recheck No 02/04/17 15:07 Antibody Screen NEGATIVE 02/04/17 15:07 Spec Expiration Date 02/07/2017230602/04/17 15:07 Microbiology 02/04/17 16:00 Blood Blood Culture - Preliminary No Growth after 96 hours 02/04/17 15:07 Blood Blood Culture - Preliminary No Growth after 96 hours 02/04/17 16:42 Urine,Clean Catch Urine Culture - Final Karina sp,not albicans/galbr Outpatient culture shows evidence of the Enterobacter, Pseudomonas, and MRSA from the coccyx ulceration - Imaging and Cardiology MRI reveals evidence the ulceration but no osteomyelitis of the coccyx at this time Assessment and Plan (1) Decubitus ulcer of sacral region, stage 4 Narrative/Plan: 56-year-old male with history of bilateral [id number] amputation' s presents to hospital with evidence of hyperglycemia with nonketotic hyperosmolality. As well as some cellulitis to his coccyx area is a chronic ulceration. No ulceration to the thighs noted. The silver alginate is applied to the coccyx ulcer. Syncopal reapplied to the thigh ulcer since we cannot keep the dressing in place. Patient may need further surgical debridement of this ulceration once he is more medically stable Current antibiotic therapy is with Merrem and vancomycin. This appears to be an adequate choice for the current isolate a pathogens from the coccyx ulceration He has an air mattress. Continue ongoing supportive care. Needs ongoing improvement of his diabetic status. This however is an ongoing issue with many Occasions over time. It appears he may be willing to go to extended care for IV antibiotic therapy PICC line to be placed Status: Acute (2) Type 2 diabetes mellitus with hyperosmolar nonketotic hyperglycemia Status: Acute
[2017-02-08] MEDS: INSULIN DETEMIR 100 UNIT/ML 10 ML VIAL SQ SCH (21:53)
[2017-02-08] MEDS: ATORVASTATIN 40 MG TAB PO SCH (21:54)
[2017-02-08] MEDS: QUEtiapine 200 MG TAB PO SCH (21:54)
[2017-02-09 02:27] LABS: Glucose,Whole Blood 153 mg/dL (75-99)
[2017-02-09] MEDS: VANCOMYCIN 1,000 MG in SODIUM CHLORIDE 0.9% 250 ML IVPB SCH ×2 (06:34→19:23)
[2017-02-09] MEDS: buPROPion XL 150 MG TAB.ER.24H PO SCH (07:48)
[2017-02-09] MEDS: PANTOPRAZOLE 40 MG TABLET PO SCH (07:48)
[2017-02-09] MEDS: NICOTINE 21MG/24HR PATCH TRANSDERM SCH (07:48)
[2017-02-09] MEDS: METHADONE 10 MG TAB PO SCH ×3 (07:48→18:22)
[2017-02-09] MEDS: ZINC OXIDE 20% OINT 28.4 GM TUBE TOPICAL SCH ×2 (07:48→21:51)
[2017-02-09] MEDS: GABAPENTIN 300 MG CAP PO SCH ×3 (07:48→21:50)
[2017-02-09] MEDS: CARVEDILOL 6.25 MG TAB PO SCH ×2 (07:49→18:21)
[2017-02-09] MEDS: MEROPENEM 1 GM in SODIUM CHLORIDE 0.9% 100 ML IVPB SCH ×2 (07:49→18:22)
[2017-02-09] MEDS: ASPIRIN 81 MG CHEW PO SCH (07:49)
[2017-02-09] MEDS: INSULIN LISPRO (humaLOG) 300 UNIT/3 ML VIAL SQ SCH ×8 (08:00→21:51)
[2017-02-09 08:06] LABS: Glucose,Whole Blood 33 mg/dL (75-99)
[2017-02-09 08:06] LABS: Glucose,Whole Blood 34 mg/dL (75-99)
[2017-02-09 08:24] LABS: Glucose,Whole Blood 47 mg/dL (75-99)
[2017-02-09 08:36] LABS: Glucose,Whole Blood 39 mg/dL (75-99)
[2017-02-09] MEDS ORDERED: DEXTROSE 50%-WATER 50 ML SYRINGE IVP ONE (08:36)
[2017-02-09 09:12] LABS: Glucose,Whole Blood 116 mg/dL (75-99)
[2017-02-09] MEDS ORDERED: LIDOCAINE 2% INJ 20 MG/ML SQ ONE (09:55)
[2017-02-09 11:04] LABS: Anion Gap 12 mmol/L; Blood Urea Nitrogen 27 mg/dL (9-20); Carbon Dioxide 18 mmol/L (22-30); Chloride 108 mmol/L (98-107); Glucose 120 mg/dL (74-99); Non-African American GFR(MDRD) >60 (>60 ml/min/1.73 sqM); Potassium 4.1 mmol/L (3.5-5.1); Sodium 138 mmol/L (137-145)
[2017-02-09 12:17] LABS: Glucose,Whole Blood 197 mg/dL (75-99)
[2017-02-09] MEDS: MULTIVITAMINS, THERA 1 EACH TAB PO SCH (13:05)
[2017-02-09] MEDS ORDERED: CALCIUM CARBONATE 500 MG CHEWABLE PO PRN (13:08)
[2017-02-09] MEDS ORDERED: NA PHOS,M-B/NA PHOS,DI-BA 133 ML ENEMA RECTAL ONE (14:45)
[2017-02-09] MEDS: SODIUM CHLORIDE 0.9% 1,000 ML IV SCH (16:48)
[2017-02-09 16:58] LABS: Glucose,Whole Blood 269 mg/dL (75-99)
[2017-02-09 20:46] LABS: Amorphous Sediment,Urine Rare /hpf; Appearance,Urine Turbid (Clear); Bilirubin,Urine Negative (Negative); Glucose,Urine (UA) 4+ (Negative); Ketones,Urine Negative (Negative); Leukocyte Esterase,Urine Large (Negative); Nitrite,Urine Negative (Negative); PH, Urine 5.5 (5.0-8.0); Particle Count 7464; Protein,Urine 1+ (Negative); RBC,Urine 7 /hpf (0-5); Specific Gravity,Urine 1.011 (1.001-1.035); UA Billing (MACRO vs. MICRO) MICRO; Urobilinogen,Urine <2.0 mg/dL (<2.0); WBC,Urine >182 /hpf (0-5)
[2017-02-09 21:25] LABS: Glucose,Whole Blood 367 mg/dL (75-99)
[2017-02-09] MEDS: ATORVASTATIN 40 MG TAB PO SCH (21:50)
[2017-02-09] MEDS: QUEtiapine 200 MG TAB PO SCH (21:50)
[2017-02-09] MEDS: INSULIN DETEMIR 100 UNIT/ML 10 ML VIAL SQ SCH (21:50)
[2017-02-10] MEDS: MEROPENEM 1 GM in SODIUM CHLORIDE 0.9% 100 ML IVPB SCH ×4 (00:05→23:33)
[2017-02-10 03:34] LABS: Glucose,Whole Blood 283 mg/dL (75-99)
[2017-02-10] MEDS: SODIUM CHLORIDE 0.9% 1,000 ML IV SCH ×2 (03:44→16:42)
[2017-02-10] MEDS: VANCOMYCIN 1,000 MG in SODIUM CHLORIDE 0.9% 250 ML IVPB SCH ×2 (05:10→18:02)
[2017-02-10 08:03] LABS: Glucose,Whole Blood 98 mg/dL (75-99)
[2017-02-10] MEDS: INSULIN LISPRO (humaLOG) 300 UNIT/3 ML VIAL SQ SCH ×9 (08:08→20:56)
[2017-02-10] MEDS: CARVEDILOL 6.25 MG TAB PO SCH ×2 (08:09→16:38)
[2017-02-10] MEDS: PANTOPRAZOLE 40 MG TABLET PO SCH (08:10)
[2017-02-10] MEDS: METHADONE 10 MG TAB PO SCH ×3 (08:11→23:32)
[2017-02-10] MEDS: NICOTINE 21MG/24HR PATCH TRANSDERM SCH (08:12)
[2017-02-10] MEDS: GABAPENTIN 300 MG CAP PO SCH ×3 (08:12→20:59)
[2017-02-10] MEDS: ZINC OXIDE 20% OINT 28.4 GM TUBE TOPICAL SCH ×2 (08:12→20:58)
[2017-02-10] MEDS: ASPIRIN 81 MG CHEW PO SCH (08:12)
[2017-02-10] MEDS: buPROPion XL 150 MG TAB.ER.24H PO SCH (08:12)
[2017-02-10 11:10] LABS: Anion Gap 10 mmol/L; Blood Urea Nitrogen 27 mg/dL (9-20); Calcium 8.7 mg/dL (8.4-10.2); Carbon Dioxide 18 mmol/L (22-30); Chloride 113 mmol/L (98-107); Glucose 118 mg/dL (74-99); Non-African American GFR(MDRD) >60 (>60 ml/min/1.73 sqM); Sodium 141 mmol/L (137-145)
[2017-02-10 11:44] LABS: Glucose,Whole Blood 184 mg/dL (75-99)
[2017-02-10] MEDS: MULTIVITAMINS, THERA 1 EACH TAB PO SCH (13:16)
--- NOTE | 2017-02-10 13:25 | P.DS ---
Providers Date of admission: 02/04/17 12:29 Expected date of discharge: 02/10/17 Attending physician: Brent Chong Consults: 02/04/17 13:11 Consult Physician Routine Consulting Provider: Syed Becerra Consult Reason/Comments: osteo Do you want consulting provider notified?: Yes Primary care physician: Brent [facility] [address] Course: Shree is a 56-year-old white male well-known to me, who presented to the wound center yesterday, February 04. He was found to have a glucose of 502. He was emaciated. He was sleepy. He had missed his follow-up visits in the office. His wound looked much worse. He was slightly hypotensive. He appeared to be septic. He was directly admitted and placed on the sepsis protocol. He is currently on Levaquin and vancomycin. Aquacel silver being applied to his wound. He received 3000 mL bolus normal saline and is currently on normal saline drip. He is been rather hyperglycemic. Humalog scale +10 units was added and seemed to improve his glucose. Tissue cultures taken the wound center were positive for Pseudomonas, rare quantity. It is susceptible to meropenem. He continues on this and vancomycin. Urine culture shows mixed contamination He left AMA last night, but returned 30 minutes later, not actually leaving the hospital grounds, so he was REadmitted without D/C/ Today, he seems to understand why he needs rehab.He understands he is not compliant with treatment. I d/w him my concern depression is a factor and started him on wellbutrin XL. No chest pain, pressure, sob. some wound pain when lying flat. He inmproved, his sugars improved and He got a PICC line for IV abx x 21 days he will go to [facility] for further treatment. FINAL DX Sepsis UTI Hyperosmolar hyperglycemia, Insulin dependent diabetes mellitus, poorly controlled: chronic low back pain Anemia of chronic disease History of opioid abuse and heroin use: Medical debility Hypertension Hyperlipidemia moderate Protein calorie malnutrition:noncompliance GI prophylaxis Depression DVT prophylaxis Pertinent Studies: ct and MRI ngative for Osteomyelitis Plan - Discharge Summary New Discharge Prescriptions: Meropenem [Merrem] 1 gm IVPB Q8H 21 Days Vancomycin 1,000 mg IVPB Q24HR 21 Days buPROPion XL [Wellbutrin XL] 150 mg PO DAILY #30 tab.er.24h Discharge Medication List Carvedilol [Coreg] 6.25 mg PO BID 06/13/14 [History] Gabapentin [Neurontin] 300 mg PO TID 01/28/16 [History] Omeprazole 20 mg PO DAILY 06/12/16 [History] Multivitamins, Thera [Multivitamin (formulary)] 1 tab PO DAILY 10/13/16 [History ] QUEtiapine [SEROquel] 200 mg PO HS 10/13/16 [History] INSULIN LISPRO (humaLOG) [humaLOG (formulary)] See Protocol SQ AC-TID 11/06/16 [ History] Methadone [Dolophine] 10 mg PO Q8HR #21 tab 11/12/16 [Rx] Insulin Detemir [Levemir] 38 unit SQ HS 01/14/17 [History] Atorvastatin [Lipitor] 40 mg PO HS 02/04/17 [History] Aspirin 81 mg PO DAILY chew 02/10/17 [Rx] Calcium Carbonate [Tums] 500 mg PO TID PRN #0 chew 02/10/17 [Rx] Meropenem [Merrem] 1 gm IVPB Q8H 21 Days 02/10/17 [Rx] Nicotine 21Mg/24Hr Patch [Habitrol] 1 patch TRANSDERM DAILY patch 02/10/17 [Rx] Vancomycin 1,000 mg IVPB Q24HR 21 Days 02/10/17 [Rx] buPROPion XL [Wellbutrin XL] 150 mg PO DAILY #30 tab.er.24h 02/10/17 [Rx] Patient Instructions/Handouts: MRSA (Methicillin Resistant Staphylococcus Aureus) (DC), Type 2 Diabetes in Adults (DC), Peripherally Inserted Central Catheters and Midline Catheters (DC) Discharge Disposition: TRANSFER TO SNF/ECF
[2017-02-10 16:40] LABS: Glucose,Whole Blood 281 mg/dL (75-99)
[2017-02-10 20:27] LABS: Glucose,Whole Blood 179 mg/dL (75-99)
[2017-02-10] MEDS: QUEtiapine 200 MG TAB PO SCH (20:57)
[2017-02-10] MEDS: ATORVASTATIN 40 MG TAB PO SCH (20:57)
[2017-02-10] MEDS: INSULIN DETEMIR 100 UNIT/ML 10 ML VIAL SQ SCH (20:57)
--- NOTE | 2017-02-10 22:59 | P.PN ---
Subjective Principal diagnosis: Coccyx ulcer This is a 56-year-old male who is well-known to ID service as he has been seen on multiple occasions for lower extremity and coccyx wound infections. Patient was last seen by infectious disease in April 2016 at which time he was treated for coccyx decubitus ulcer stage IV and had a PICC line placed and was discharged on Unasyn 3 g every 6 hours for 28 days. He also had a Cardoza grade 2 diabetic ulcer to the right below the knee amputation. Patient was subsequently admitted June 12 at which time he underwent a right [id number] amputation with Dr. Stout. Pathology was positive for osteomyelitis. He was discharged with PICC line in place and Rocephin for a 10 day course. Patient was apparently discharged [facility] and discharged to home which is an apartment at [facility]. He has been [facility] under the care of Dr. Chong initially on August 17 and underwent coccyx wound debridement. Patient was to return on a weekly basis but missed 3 appointments due to transportation issues and a second appointment was on September 17. He also underwent an I&D of the coccyx wound at that time. Local wound care in the form of Hydrofera Blue. October he was again admittedwith some altered mental status And concerns to sepsis. He presented wound healing center today with worsening cellulitis to the coccyx area as well as new ulceration to the right upper thigh. Because he is admitted to hospital and evaluation was requested. The patient also had a blood sugar that was over 500 in with concerns to DKA was placed on an insulin drip feeling somewhat better today. Dressing changes done today. His obstipation is resolved He is looking forward to potentially going to rehab at [facility] in the past with good success. Objective - Vital Signs Vital signs: Vital Signs Temp 98.2 F 02/10/17 15:00 Pulse 86 02/10/17 16:23 Resp 19 02/10/17 16:23 BP 121/60 02/10/17 15:00 Pulse Ox 100 02/10/17 15:00 Intake & Output 02/10/17 02/10/17 02/11/17 06:59 18:59 06:59 Intake Total 720 Output Total 700 601 900 Balance -700 -601 -180 Intake: Oral 720 Output: Urine 700 600 900 Stool 1 Other: Voiding Method Urinal Urinal # Voids 0 3 # Bowel Movements 1 - Exam This is a 56-year-old emaciated male. He is sitting up in bed and is slow to respond. He appears to be in no acute distress. HEENT: Head is atraumatic, normocephalic. Pupils equal, round. Sclerae is anicteric. Mucous membranes of the mouth are dry. Dentition is in poor order. NECK: Supple. No JVD. No lymphadenopathy. No thyromegaly. LUNGS: Coarse sounds bilaterally with poor inspiratory effort. No intercostal retractions. HEART: Regular rate and rhythm. No murmur. ABDOMEN: Soft. Bowel sounds are present. No masses. No tenderness. EXTREMITIES: Bilateral lower extremity amputations noted. No open wounds or drainage from the stumps. No erythema. NEUROLOGICAL: Patient is now awake and alert. No cities of [facility]. State my name. She is having trouble with days. He does not remember yesterday well. The coccyx ulceration measures at 8 x7 x 0.5 cm.there is also a small ulceration of 2 x 2 x 0.2 cm on the right upper thigh posterior without acute change Is some concern to some necrosis to the exposed muscle to the coccyx. Computed tomography scan did not reveal evidence of underlying osteomyelitis this time. - Labs CBC & Chem 7: 02/07/17 08:33 02/10/17 09:33 Labs: Abnormal Lab Results - Last 24 Hours (Table) 02/10/17 02/10/17 02/10/17 Range/Units 03:21 09:33 11:41 Chloride 113 H (98-107) mmol/L Carbon Dioxide 18 L (22-30) mmol/L BUN 27 H (9-20) mg/dL Creatinine 0.64 L (0.66-1.25) mg/dL Glucose 118 H (74-99) mg/dL POC Glucose (mg/dL) 283 H 184 H (75-99) mg/dL 02/10/17 02/10/17 Range/Units 16:39 20:09 Chloride (98-107) mmol/L Carbon Dioxide (22-30) mmol/L BUN (9-20) mg/dL Creatinine (0.66-1.25) mg/dL Glucose (74-99) mg/dL POC Glucose (mg/dL) 281 H 179 H (75-99) mg/dL Microbiology - Last 24 Hours (Table) 02/04/17 16:00 Blood Culture - Final Blood No Growth after 144 hours 02/04/17 15:07 Blood Culture - Final Blood No Growth after 144 hours 02/09/17 18:00 Urine Culture - Preliminary Urine,Voided Laboratory Results WBC 6.5 k/uL (3.8-10.6) 02/07/17 08:33 RBC 3.14 m/uL (4.30-5.90) L 02/07/17 08:33 Hgb 9.3 gm/dL (13.0-17.5) L 02/07/17 08:33 Hct 29.4 % (39.0-53.0) L 02/07/17 08:33 MCV 93.6 fL (80.0-100.0) 02/07/17 08:33 MCH 29.7 pg (25.0-35.0) 02/07/17 08:33 MCHC 31.7 g/dL (31.0-37.0) 02/07/17 08:33 RDW 14.4 % (11.5-15.5) 02/07/17 08:33 Plt Count 307 k/uL (150-450) 02/07/17 08:33 Neutrophils % 58 % 02/07/17 08:33 Lymphocytes % 30 % 02/07/17 08:33 Monocytes % 5 % 02/07/17 08:33 Eosinophils % 4 % 02/07/17 08:33 Basophils % 1 % 02/07/17 08:33 Neutrophils # 3.8 k/uL (1.3-7.7) 02/07/17 08:33 Lymphocytes # 1.9 k/uL (1.0-4.8) 02/07/17 08:33 Monocytes # 0.3 k/uL (0-1.0) 02/07/17 08:33 Eosinophils # 0.2 k/uL (0-0.7) 02/07/17 08:33 Basophils # 0.0 k/uL (0-0.2) 02/07/17 08:33 Toxic Granulation Present 02/07/17 08:33 Polychromasia Present 02/07/17 08:33 Hypochromasia Moderate 02/07/17 08:33 ESR 23 mm/hr (0-15) H 02/07/17 08:33 PT 10.0 sec (9.0-12.0) 02/04/17 15:07 INR 1.0 (<1.1) 02/04/17 15:07 APTT 23.5 sec (22.0-30.0) 02/04/17 15:07 Sodium 141 mmol/L (137-145) 02/10/17 09:33 Potassium 4.0 mmol/L (3.5-5.1) 02/10/17 09:33 Chloride 113 mmol/L (98-107) H 02/10/17 09:33 Carbon Dioxide 18 mmol/L (22-30) L 02/10/17 09:33 Anion Gap 10 mmol/L 02/10/17 09:33 BUN 27 mg/dL (9-20) H 02/10/17 09:33 Creatinine 0.64 mg/dL (0.66-1.25) L 02/10/17 09:33 Est GFR (MDRD) Af Amer >60 (>60 ml/min/1.73 sqM) 02/10/17 09:33 Est GFR (MDRD) Non-Af >60 (>60 ml/min/1.73 sqM) 02/10/17 09:33 Glucose 118 mg/dL (74-99) H 02/10/17 09:33 POC Glucose (mg/dL) 179 mg/dL (75-99) H 02/10/17 20:09 POC Glu Gun Perforator Loader ID Xiomara Senior 02/10/17 20:[address] Glu mg/dL 309 mg/dL 02/04/17 15:07 Hemoglobin A1c 12.4 % (4.2-6.1) H 02/04/17 15:07 Plasma Lactic Acid Ayo 1.9 mmol/L (0.7-2.0) 02/04/17 20:54 Calcium 8.7 mg/dL (8.4-10.2) 02/10/17 09:33 Magnesium 1.7 mg/dL (1.6-2.3) 02/05/17 07:02 Total Bilirubin 0.4 mg/dL (0.2-1.3) 02/04/17 15:07 AST 20 U/L (17-59) 02/04/17 15:07 ALT 37 U/L (21-72) 02/04/17 15:07 Alkaline Phosphatase 127 U/L (38-126) H 02/04/17 15:07 Total Creatine Kinase 114 U/L (55-170) 02/05/17 01:04 CK-MB (CK-2) 1.4 ng/mL (0.0-2.4) 02/05/17 01:04 CK-MB (CK-2) Rel Index 1.2 02/05/17 01:04 Troponin I <0.012 ng/mL (0.000-0.034) 02/05/17 01:04 C-Reactive Protein 31.8 mg/L (<10.0) H 02/07/17 08:33 Total Protein 7.0 g/dL (6.3-8.2) 02/04/17 15:07 Albumin 3.5 g/dL (3.5-5.0) 02/04/17 15:07 Prealbumin 10 mg/dL (18-36) L 02/06/17 06:36 TSH 0.721 mIU/L (0.465-4.680) 02/04/17 15:07 Cortisol 17 ug/dL 02/04/17 15:07 Urine Color Yellow 02/09/17 18:00 Urine Appearance Turbid (Clear) 02/09/17 18:00 Urine pH 5.5 (5.0-8.0) 02/09/17 18:00 Ur Specific [place] 1.011 (1.001-1.035) 02/09/17 18:00 Urine Protein 1+ (Negative) H 02/09/17 18:00 Urine Glucose (UA) 4+ (Negative) H 02/09/17 18:00 Urine Ketones Negative (Negative) 02/09/17 18:00 Urine Blood Small (Negative) H 02/09/17 18:00 Urine Nitrite Negative (Negative) 02/09/17 18:00 Urine Bilirubin Negative (Negative) 02/09/17 18:00 Urine Urobilinogen <2.0 mg/dL (<2.0) 02/09/17 18:00 Ur Leukocyte Esterase Large (Negative) H 02/09/17 18:00 Urine RBC 7 /hpf (0-5) H 02/09/17 18:00 Urine WBC >182 /hpf (0-5) H 02/09/17 18:00 Urine WBC Clumps Many /hpf (None) H 02/09/17 18:00 Amorphous Sediment Rare /hpf (None) H 02/09/17 18:00 Urine Yeast (Budding) Occasional /hpf (None) H 02/09/17 18:00 Vancomycin Trough 15.3 ug/mL 02/08/17 17:22 Urine Opiates Screen Detected (NotDetected) H 02/04/17 16:42 Ur Oxycodone Screen Not Detected (NotDetected) 02/04/17 16:42 Urine Methadone Screen Detected (NotDetected) H 02/04/17 16:42 Ur Propoxyphene Screen Not Detected (NotDetected) 02/04/17 16:42 Ur Barbiturates Screen Not Detected (NotDetected) 02/04/17 16:42 U Tricyclic Antidepress Not Detected (NotDetected) 02/04/17 16:42 Ur Phencyclidine Scrn Not Detected (NotDetected) 02/04/17 16:42 Ur Amphetamines Screen Not Detected (NotDetected) 02/04/17 16:42 U Methamphetamines Scrn Not Detected (NotDetected) 02/04/17 16:42 U Benzodiazepines Scrn Detected (NotDetected) H 02/04/17 16:42 Urine Cocaine Screen Not Detected (NotDetected) 02/04/17 16:42 U Marijuana (THC) Screen Not Detected (NotDetected) 02/04/17 16:42 Blood Type A Positive 02/04/17 15:07 Blood Type Recheck No 02/04/17 15:07 Antibody Screen NEGATIVE 02/04/17 15:07 Spec Expiration Date 02/07/2017 3980 02/04/17 15:07 Microbiology 02/04/17 16:00 Blood Blood Culture - Final No Growth after 144 hours 02/04/17 15:07 Blood Blood Culture - Final No Growth after 144 hours 02/09/17 18:00 Urine,Voided Urine Culture - Preliminary 02/04/17 16:42 Urine,Clean Catch Urine Culture - Final Karina sp,not albicans/galbr Assessment and Plan (1) Decubitus ulcer of sacral region, stage 4 Narrative/Plan: 56-year-old male with history of bilateral [id number] amputation' s presents to hospital with evidence of hyperglycemia with nonketotic hyperosmolality. As well as some cellulitis to his coccyx area is a chronic ulceration. No ulceration to the thighs noted. The silver alginate is applied to the coccyx ulcer. Syncopal reapplied to the thigh ulcer since we cannot keep the dressing in place. Patient may need further surgical debridement of this ulceration once he is more medically stable Current antibiotic therapy is with Merrem and vancomycin. This appears to be an adequate choice for the current isolate a pathogens from the coccyx ulceration He has an air mattress. Continue ongoing supportive care. Needs ongoing improvement of his diabetic status. This however is an ongoing issue with many Occasions over time. It appears he may be willing to go to extended care for IV antibiotic therapy PICC line to be placed Status: Acute (2) Type 2 diabetes mellitus with hyperosmolar nonketotic hyperglycemia Status: Acute
[2017-02-10 23:49] LABS: Glucose,Whole Blood 143 mg/dL (75-99)
[2017-02-11 02:14] LABS: Glucose,Whole Blood 102 mg/dL (75-99)
[2017-02-11] MEDS: SODIUM CHLORIDE 0.9% 1,000 ML IV SCH (05:37)
[2017-02-11] MEDS: VANCOMYCIN 1,000 MG in SODIUM CHLORIDE 0.9% 250 ML IVPB SCH (05:37)
[2017-02-11 07:45] LABS: Glucose,Whole Blood 144 mg/dL (75-99)
[2017-02-11 07:55] VITALS: BP 130/71; PULSE 78; RESP 19; TEMP 98.3
[2017-02-11] MEDS: INSULIN LISPRO (humaLOG) 300 UNIT/3 ML VIAL SQ SCH ×2 (08:00)
[2017-02-11] MEDS: GABAPENTIN 300 MG CAP PO SCH (08:37)
[2017-02-11] MEDS: METHADONE 10 MG TAB PO SCH (08:37)
[2017-02-11] MEDS: CARVEDILOL 6.25 MG TAB PO SCH (08:37)
[2017-02-11] MEDS: buPROPion XL 150 MG TAB.ER.24H PO SCH (08:37)
[2017-02-11] MEDS: NICOTINE 21MG/24HR PATCH TRANSDERM SCH (08:37)
[2017-02-11] MEDS: PANTOPRAZOLE 40 MG TABLET PO SCH (08:38)
[2017-02-11] MEDS: MEROPENEM 1 GM in SODIUM CHLORIDE 0.9% 100 ML IVPB SCH (08:39)
[2017-02-11] MEDS: ZINC OXIDE 20% OINT 28.4 GM TUBE TOPICAL SCH (08:40)
[2017-02-11] MEDS: ASPIRIN 81 MG CHEW PO SCH (08:40)
--- NOTE | 2017-02-11 09:04 | IR ---
EXAMINATION TYPE: IR cvc insert >=5 years DATE OF EXAM: 02/09/2017 10:28 AM COMPARISON: NONE CLINICAL HISTORY: Infection Needs long-term intravenous access for antibiotics. PROCEDURE: After informed consent, the skin overlying the right basilic vein vein was localized with ultrasound and noted to be compressible and patent. An ultrasound image was obtained and [facility] The overlying skin was prepped and draped and Lidocaine was used for local anesthesia. A skin anupama was made with a scalpel. Access was gained to the vein under ultrasound guidance with a 21 gauge needle and a 0.018 inch wire was advanced. Access site was dilated with Peel-Away sheath an d catheter tailored to the appropriate length and advanced such that the distal tip is at the cavoatr ial junction. Spot image was obtained verifying placement. Catheter was fixed to the skin with sutu re and a sterile dressing was placed following hemostasis. Catheter was aspirated and flushed with s madison. Patient was discharged in stable condition without complication. Maximal barrier technique is utilized. Ultrasound image is documented on the chart. Ultrasound used with sterile technique. Fluoro time and fluoroscopic images submitted to document procedure: 311 intraoperative C-arm images, 0.8 minutes fluoroscopy time IMPRESSION: STATUS POST ULTRASOUND AND FLUOROSCOPIC GUIDED PICC LINE PLACEMENT, READY FOR USE. THIS PROCEDURE WAS PERFORMED BY THE UNDERSIGNED.
[2017-02-11 10:31] LABS: Anion Gap 7 mmol/L; Blood Urea Nitrogen 23 mg/dL (9-20); Calcium 8.5 mg/dL (8.4-10.2); Carbon Dioxide 21 mmol/L (22-30); Chloride 110 mmol/L (98-107); Glucose 151 mg/dL (74-99); Non-African American GFR(MDRD) >60 (>60 ml/min/1.73 sqM); Potassium 4.1 mmol/L (3.5-5.1); Sodium 138 mmol/L (137-145)
[2017-02-12] MEDS ORDERED: VANCOMYCIN TROUGH DUE 1 EACH MISC MISCELLANE ONE (05:00)
== END 2017-02-11 12:08 | DRG 871 ==
LOC: 3SUR 12:29 → 4MS4W 02-07 10:03 → UNDODISIN 02-07 19:18
PROVIDERS: ADMIT Family Medicine; ATTEND Family Medicine
PROC: 02HV33Z Insertion of Infusion Device into Superior Vena Cava, Percutaneous Approach (ICD-10-PCS; principal; 2017-02-09 09:45)
DX: A41.9 Sepsis, unspecified organism (principal); E11.00 Type 2 diabetes mellitus with hyperosmolarity without nonketotic hyperglycemic-hyperosmolar coma (NKHHC); R64 Cachexia; L89.154 Pressure ulcer of sacral region, stage 4; E11.51 Type 2 diabetes mellitus with diabetic peripheral angiopathy without gangrene; E11.42 Type 2 diabetes mellitus with diabetic polyneuropathy; E44.0 Moderate protein-calorie malnutrition; I95.9 Hypotension, unspecified; E11.622 Type 2 diabetes mellitus with other skin ulcer; N39.0 Urinary tract infection, site not specified; L03.312 Cellulitis of back [any part except buttock and flank]; G89.29 Other chronic pain; Z89.611 Acquired absence of right leg above knee; Z89.612 Acquired absence of left leg above knee; D63.8 Anemia in other chronic diseases classified elsewhere; E78.5 Hyperlipidemia, unspecified; I10 Essential (primary) hypertension; F32.9 Major depressive disorder, single episode, unspecified; I25.2 Old myocardial infarction; M54.5 Low back pain; E11.65 Type 2 diabetes mellitus with hyperglycemia; K59.00 Constipation, unspecified; R41.82 Altered mental status, unspecified; J44.9 Chronic obstructive pulmonary disease, unspecified; M54.2 Cervicalgia; R32 Unspecified urinary incontinence; G43.909 Migraine, unspecified, not intractable, without status migrainosus; D64.9 Anemia, unspecified; F17.200 Nicotine dependence, unspecified, uncomplicated; Z87.19 Personal history of other diseases of the digestive system; Z88.5 Allergy status to narcotic agent; Z88.1 Allergy status to other antibiotic agents; Z86.19 Personal history of other infectious and parasitic diseases; Z86.14 Personal history of Methicillin resistant Staphylococcus aureus infection; Z79.4 Long term (current) use of insulin; Z82.49 Family history of ischemic heart disease and other diseases of the circulatory system; Z71.3 Dietary counseling and surveillance; Z90.49 Acquired absence of other specified parts of digestive tract; Z16.24 Resistance to multiple antibiotics; Z68.22 Body mass index [BMI] 22.0-22.9, adult; Z79.891 Long term (current) use of opiate analgesic; Z91.19 Patient's noncompliance with other medical treatment and regimen; Z87.11 Personal history of peptic ulcer disease; Z80.0 Family history of malignant neoplasm of digestive organs; Z80.8 Family history of malignant neoplasm of other organs or systems; Z79.899 Other long term (current) drug therapy
CPT/HCPCS: 36569; 71010; 72192; 72197; 72220; 76937; 77001; 80048; 80053; 80202; 80306; 81001; 82533; 82550; 82553; 82947; 83036; 83605; 83735; 84134; 84443; 84484; 85025; 85610; 85652; 85730; 86140; 86850; 86900; 86901; 87040; 87086; 93005

== ENCOUNTER 2017-04-05 17:20 | Inpatient (IN) | payer OTHER ==
[2017-04-05] MEDS ORDERED: SODIUM CHLORIDE 0.9% 2,000 ML IV ONE (17:54)
[2017-04-05] MEDS ORDERED: ONDANSETRON 4 MG/2 ML VIAL IVP STA (17:56)
[2017-04-05] MEDS ORDERED: HYDROmorphone 1 MG/ML 1 ML SYRINGE IVP STA ×2 (17:57→19:21)
[2017-04-05] MEDS: SODIUM CHLORIDE 0.9% 1,000 ML IV SCH (18:20)
[2017-04-05 18:26] LABS: VBG PH 7.11 (7.31-7.41)
--- NOTE | 2017-04-05 18:26 | ED ---
Back Pain HPI - General Chief Complaint: Back Pain/Injury Stated Complaint: Diabetes Time Seen by Provider: 04/05/17 17:24 Source: patient, EMS Limitations: no limitations - History of Present Illness Initial Comments: The patient is a 56-year-old male who presents to the ED with a chief complaint of lack of appetite for the past 4-5 days. Patient states that his symptoms have been associated with nausea and vomiting. Patient states that he's had multiple episodes of nausea and vomiting over the course of the past 4 days. Patient states that he's been unable to keep down anything by mouth. Patient states that he's been continuing with his usual insulin regime. Patient denies any fevers or chills. He states that he has had worsening back pain. Patient states that he has not been using any medications at home to control his back pain. Patient states that he has a large sacral decubitus wound on his sacral region. He's been following with wound care for this area. He states that he believes they're supposed to come every other day to change his dressings but that they have not been there recently. He states that there is been purulent drainage from this wound. The patient was found covered in his own feces. He was wearing sweat pants that were filled with feces. The feces had spread up on top of the dressing covering his sacral decubitus wound. The patient lives on his own. He has a history of opioid abuse. - Related Data Home Medications Medication Instructions Recorded Confirmed Carvedilol [Coreg] 6.25 mg PO BID 06/13/14 04/01/17 Gabapentin [Neurontin] 300 mg PO TID 01/28/16 04/01/17 Omeprazole 20 mg PO DAILY 06/12/16 04/01/17 Multivitamins, Thera [Multivitamin 1 tab PO DAILY 10/13/16 04/01/17 (formulary)] QUEtiapine [SEROquel] 200 mg PO HS 10/13/16 04/01/17 INSULIN LISPRO (humaLOG) [humaLOG See Protocol SQ AC-TID 11/06/16 04/01/17 (formulary)] Insulin Detemir [Levemir] 38 unit SQ HS 01/14/17 04/01/17 Atorvastatin [Lipitor] 40 mg PO HS 02/04/17 04/01/17 Losartan (Unknown Dose) 1 tab PO DAILY 03/17/17 04/01/17 Previous Rx's Medication Instructions Recorded Methadone [Dolophine] 10 mg PO Q8HR #21 tab 11/12/16 Aspirin 81 mg PO DAILY chew 02/10/17 Calcium Carbonate [Tums] 500 mg PO TID PRN #0 chew 02/10/17 Doxycycline Monohydrate [Monodox] 100 mg PO Q12HR #28 cap 04/01/17 Allergies Allergy/AdvReac Type Severity Reaction Status Date / Time piperacillin [From Zosyn] Allergy Severe Dyspnea Verified 04/01/17 11:05 tazobactam [From Zosyn] Allergy Severe Dyspnea Verified 04/01/17 11:05 tramadol Allergy Unknown Verified 04/01/17 11:05 fentanyl AdvReac Lightheaded Verified 04/01/17 11:05 ketorolac tromethamine AdvReac Nausea Verified 04/01/17 11:05 [From Toradol] Review of Systems ROS Statement: Those systems with pertinent positive or pertinent negative responses have been documented in the HPI. ROS Other: All systems not noted in ROS Statement are negative. Constitutional: Denies: fever, chills Eyes: Denies: vision change ENT: Denies: ear pain, throat pain Respiratory: Denies: cough, dyspnea, wheezes Cardiovascular: Denies: chest pain, palpitations, dyspnea on exertion Endocrine: Reports: fatigue Gastrointestinal: Reports: abdominal pain (generalized), nausea, vomiting. Denies: diarrhea, constipation Genitourinary: Reports: other (decreased frequency). Denies: urgency, dysuria, frequency Musculoskeletal: Reports: back pain Skin: Reports: other (large wound on back with purulent drainage) Neurological: Denies: headache, weakness, numbness, paresthesias, confusion Psychiatric: Denies: anxiety, depression Past Medical History Past Medical History: Blood Disorder, Diabetes Mellitus, Liver Disease, Musculoskeletal Disorder, Neurologic Disorder, Respiratory Disorder, Vascular Disorder Additional Past Medical History / Comment(s): PAD, gastric ulcer hx, chronic back pain, chronic anemia, HCV, mid lung nodule, bollous lung disease, HEP-C, ANEMIA migraine,DECUB ULCER-BUTTOCKS, NEUROPATHY -FINGERS, MIGRAINES, "pt stated he had an mi in november 2016, wound coccyx area History of Any Multi-Drug Resistant Organisms: MRSA, Other MDRO, VRE Date of last positivie culture/infection: 03/18/17-MRSA; 03/18/17-VRE; 03/18/17- MDRO-PSEUDOMONAS MDRO Source:: Right Leg MRSA and VRE; Coccyx MDRO and MRSA Past Surgical History: Adenoidectomy, Appendectomy, Heart Catheterization, Hernia Repair, Orthopedic Surgery, Tonsillectomy Additional Past Surgical History / Comment(s): R BKA, R BKA revision to AKA, L AKA , rt arm picc line -since removed Past Anesthesia/Blood Transfusion Reactions: No Reported Reaction Additional Past Anesthesia/Blood Transfusion Reaction / Comment(s): Pt recently received blood. Past Psychological History: Depression Additional Psychological History / Comment(s): Pt is back home residing alone at [facility]. He is in a wheelchair and transfers himself. He does not drive. He uses the bus. Smoking Status: Current every day smoker Past Alcohol Use History: None Reported Additional Past Alcohol Use History / Comment(s): STARTED SMOKING AT AGE 12 1/2 PPD. currently smoking 1 ppd PT STATED HE STARTED USING HEROIN AT AGE 29 AND QUIT AT AGE 47. Past Drug Use History: Heroin Additional Drug Use History / Comment(s): PT STATED HE QUIT HEROIN AT AGE 47. Pt is on methadone. - Past Family History Mother Family Medical History: Cancer Additional Family Medical History / Comment(s): Mother of brain cancer mets at the age of 68 yrs. Father Family Medical History: Cancer, Coronary Artery Disease (CAD) Additional Family Medical History / Comment(s): Father of throat cancer at the age of 70yrs. General Exam Limitations: no limitations General appearance: alert, in no apparent distress, cachectic Head exam: Present: atraumatic, normocephalic Eye exam: Present: normal appearance, PERRL Pupils: Present: normal accommodation ENT exam: Present: normal exam, mucous membranes dry Neck exam: Present: normal inspection, full ROM Respiratory exam: Present: normal lung sounds bilaterally. Absent: respiratory distress, wheezes, rales, rhonchi, stridor Cardiovascular Exam: Present: normal rhythm, tachycardia GI/Abdominal exam: Present: soft. Absent: distended, tenderness, guarding, rebound, rigid Extremities exam: Present: other (bilateral bka of the lower extremities) Back exam: Present: other (large sacral decubitus ulcer noted on the back with purulent drainage noted) Neurological exam: Present: alert, oriented X3 Psychiatric exam: Present: normal affect, depressed Skin exam: Present: warm, dry, other (8cm x 6cm (approx measurements) sacral decubitus wound on the patient's back) Course Vital Signs 04/05/17 04/05/17 17:34 19:30 Pulse Rate 75 70 Respiratory 18 20 Rate Blood Pressure 121/71 151/75 O2 Sat by Pulse 100 Oximetry Medical Decision Making - Medical Decision Making Patient is a 56-year-old male who presents to ED with a chief complaint of nausea, vomiting and fatigue. Patient also complains of diminished appetite. Patient denies any fevers or chills. He is noted to have a large sacral decubitus ulcer on his back. This is either stage III or stage IV. Patient noted to be tachycardic. Concern given insulin-dependent diabetes that patient may have DKA. Check venous blood gas. Check acetone. Check BMP. Patient with IV fluids. Provide with 2 L. Provide patient with Dilaudid for pain control. Vancomycin for possible cellulitis or osteomyelitis of the back. 7:00 PM Patient noted to have pH of 7.11 on VBG. Acetone is positive. Bicarb is <5 on BMP. Will start DKA protocol. Glucose is 1329. Start on insulin drip at 5 units/ hr. Patient updated of findings. 7:[address] Barcenas who accepts admission of patient. He has requested that Dr. Masterson be placed on consult from ICU. Spoke with Dr. Masterson, who accepts placement of patient into the ICU. - Lab Data Result diagrams: 04/05/17 17:55 04/05/17 17:55 Lab Results 04/05/17 04/05/17 04/05/17 Range/Units 17:55 17:55 17:55 WBC 14.0 H (3.8-10.6) k/uL RBC 3.32 L (4.30-5.90) m/uL Hgb 9.5 L (13.0-17.5) gm/dL Hct 34.6 L (39.0-53.0) % MCV 104.1 H D (80.0-100.0) fL MCH 28.5 (25.0-35.0) pg MCHC 27.4 L (31.0-37.0) g/dL RDW 14.2 (11.5-15.5) % Plt Count 544 H (150-450) k/uL Neutrophils % 90 % Lymphocytes % 6 % Monocytes % 4 % Eosinophils % 0 % Basophils % 0 % Neutrophils # 12.6 H (1.3-7.7) k/uL Lymphocytes # 0.8 L (1.0-4.8) k/uL Monocytes # 0.5 (0-1.0) k/uL Eosinophils # 0.0 (0-0.7) k/uL Basophils # 0.0 (0-0.2) k/uL Hypochromasia Marked Poikilocytosis Slight Macrocytosis Slight VBG pH (7.31-7.41) VBG pCO2 (37-51) mmHg VBG HCO3 (24-28) mmol/L Sodium 115 L* (137-145) mmol/L Potassium 5.4 H (3.5-5.1) mmol/L Chloride 76 L* (98-107) mmol/L Carbon Dioxide <5 L* (22-30) mmol/L Anion Gap 34 mmol/L BUN 77 H (9-20) mg/dL Creatinine 1.94 H (0.66-1.25) mg/dL Est GFR (MDRD) Af Amer 43 (>60 ml/min/1.73 sqM) Est GFR (MDRD) Non-Af 36 (>60 ml/min/1.73 sqM) Glucose 1329 H* (74-99) mg/dL POC Glucose (mg/dL) (75-99) mg/dL POC Glu Brick Machine Operator ID Osmolality 359 H* (280-301) mosm/kg Plasma Lactic Acid Ayo 1.1 (0.7-2.0) mmol/L Calcium 8.4 (8.4-10.2) mg/dL Magnesium 2.1 (1.6-2.3) mg/dL Total Bilirubin 0.5 (0.2-1.3) mg/dL AST 13 L (17-59) U/L ALT 26 (21-72) U/L Alkaline Phosphatase 110 (38-126) U/L Total Protein 6.8 (6.3-8.2) g/dL Albumin 3.8 (3.5-5.0) g/dL Acetone, Qual Positive (Negative) 04/05/17 04/05/17 Range/Units 17:55 19:34 WBC (3.8-10.6) k/uL RBC (4.30-5.90) m/uL Hgb (13.0-17.5) gm/dL Hct (39.0-53.0) % MCV (80.0-100.0) fL MCH (25.0-35.0) pg MCHC (31.0-37.0) g/dL RDW (11.5-15.5) % Plt Count (150-450) k/uL Neutrophils % % Lymphocytes % % Monocytes % % Eosinophils % % Basophils % % Neutrophils # (1.3-7.7) k/uL Lymphocytes # (1.0-4.8) k/uL Monocytes # (0-1.0) k/uL Eosinophils # (0-0.7) k/uL Basophils # (0-0.2) k/uL Hypochromasia Poikilocytosis Macrocytosis VBG pH 7.11 L* (7.31-7.41) VBG pCO2 22 L (37-51) mmHg VBG HCO3 7 L* (24-28) mmol/L Sodium (137-145) mmol/L Potassium (3.5-5.1) mmol/L Chloride (98-107) mmol/L Carbon Dioxide (22-30) mmol/L Anion Gap mmol/L BUN (9-20) mg/dL Creatinine (0.66-1.25) mg/dL Est GFR (MDRD) Af Amer (>60 ml/min/1.73 sqM) Est GFR (MDRD) Non-Af (>60 ml/min/1.73 sqM) Glucose (74-99) mg/dL POC Glucose (mg/dL) >600 H (75-99) mg/dL POC Glu Brick Machine Operator ID Radha Beard Osmolality ([phone]) mosm/kg Plasma Lactic Acid Ayo (0.7-2.0) mmol/L Calcium (8.4-10.2) mg/dL Magnesium (1.6-2.3) mg/dL Total Bilirubin (0.2-1.3) mg/dL AST (17-59) U/L ALT (21-72) U/L Alkaline Phosphatase (38-126) U/L Total Protein (6.3-8.2) g/dL Albumin (3.5-5.0) g/dL Acetone, Qual (Negative) 04/05/17 18:26 EKG demonstrates NSR with a rate of 73. There are no concerning ST or T-wave changes. The QTc is prolonged at 504. Disposition Clinical Impression: DKA (diabetic ketoacidoses), Osteomyelitis, Cellulitis, Sepsis, Sacral decubitus ulcer, stage III Disposition: ADMITTED IP TO THIS [facility] Condition: Fair Referrals: Brent Chong MD [Primary Care Provider] - 1-2 days Decision to Admit Reason: Admit from EC Decision Date: 04/05/17 Decision Time: 19:50
[2017-04-05] MEDS ORDERED: INSULIN REGULAR 100 UNIT in SODIUM CHLORIDE 0.9% 100 ML IV ONE (18:27)
[2017-04-05 18:32] LABS: Basophils % (A) 0 %; CH 27.9; Eosinophils % (A) 0 %; HCT 34.6 % (39.0-53.0); HDW 3.42; HGB 9.5 gm/dL (13.0-17.5); Hypochromasia Marked; Luc # (Auto) 0.09; Luc % (Auto) 1; Lymphocytes # (A) 0.8 k/uL (1.0-4.8); Lymphocytes % (A) 6 %; MCH 28.5 pg (25.0-35.0); MCHC 27.4 g/dL (31.0-37.0); MCV 104.1 fL (80.0-100.0); Macrocytosis Slight; Mean Platelet Volume 8.1; Monocytes # (A) 0.5 k/uL (0-1.0); Monocytes % (A) 4 %; Neutrophils # (A) 12.6 k/uL (1.3-7.7); Neutrophils % (A) 90 %; Poikilocytosis Slight; RBC 3.32 m/uL (4.30-5.90); RDW 14.2 % (11.5-15.5); WBC (Perox) 14.43
[2017-04-05] MEDS ORDERED: IV VANCOMYCIN PER PHARMACY 1 EACH MISC MISCELLANE PRN (18:32)
[2017-04-05 18:38] LABS: ALT 26 U/L (21-72); AST 13 U/L (17-59); Alkaline Phosphatase 110 U/L (38-126); Anion Gap 34 mmol/L; Blood Urea Nitrogen 77 mg/dL (9-20); Calcium 8.4 mg/dL (8.4-10.2); Magnesium 2.1 mg/dL (1.6-2.3); Non-African American GFR(MDRD) 36 (>60 ml/min/1.73 sqM); Potassium 5.4 mmol/L (3.5-5.1); Total Bilirubin 0.5 mg/dL (0.2-1.3); Total Protein 6.8 g/dL (6.3-8.2)
[2017-04-05] MEDS ORDERED: VANCOMYCIN 1,000 MG in SODIUM CHLORIDE 0.9% 250 ML IVPB STA (18:50)
[2017-04-05 18:59] LABS: Sodium 115 mmol/L (137-145)
[2017-04-05 19:00] LABS: Carbon Dioxide <5 mmol/L (22-30); Chloride 76 mmol/L (98-107); Glucose 1329 mg/dL (74-99)
[2017-04-05] MEDS: INSULIN REGULAR 100 UNIT in SODIUM CHLORIDE 0.9% 100 ML IV SCH (19:11)
[2017-04-05 19:38] LABS: Glucose,Whole Blood >600 mg/dL (75-99)
[2017-04-05 20:10] LABS: ALT 25 U/L (21-72); AST 12 U/L (17-59); Alkaline Phosphatase 97 U/L (38-126); Anion Gap 31 mmol/L; Blood Urea Nitrogen 71 mg/dL (9-20); Calcium 7.6 mg/dL (8.4-10.2); Chloride 84 mmol/L (98-107); Non-African American GFR(MDRD) 43 (>60 ml/min/1.73 sqM); Potassium 4.4 mmol/L (3.5-5.1); Total Bilirubin 0.5 mg/dL (0.2-1.3); Total Protein 6.2 g/dL (6.3-8.2)
[2017-04-05 20:18] LABS: Carbon Dioxide <5 mmol/L (22-30); Glucose 1148 mg/dL (74-99); Sodium 120 mmol/L (137-145)
[2017-04-05 20:59] LABS: Amorphous Sediment,Urine Occasional /hpf; Appearance,Urine Clear (Clear); Bacteria,Urine Rare /hpf; Bilirubin,Urine Negative (Negative); Glucose,Urine (UA) 4+ (Negative); Ketones,Urine 2+ (Negative); Leukocyte Esterase,Urine Moderate (Negative); Mucus,Urine Rare /hpf; Nitrite,Urine Negative (Negative); Particle Count 1661; Protein,Urine Trace (Negative); RBC,Urine 1 /hpf (0-5); Specific Gravity,Urine 1.014 (1.001-1.035); Squamous Epithelial Cell,Urine <1 /hpf (0-4); UA Billing (MACRO vs. MICRO) MICRO; Urobilinogen,Urine <2.0 mg/dL (<2.0); WBC,Urine 71 /hpf (0-5)
[2017-04-05] MEDS ORDERED: NALOXONE 0.4 MG/ML 1 ML VIAL IV PRN (21:48)
[2017-04-05] MEDS ORDERED: COLLAGENASE 250 UNIT/GM OINTMENT 30 GM TUBE TOPICAL SCH (22:00)
[2017-04-05 22:13] LABS: Glucose,Whole Blood >600 mg/dL (75-99)
[2017-04-05] MEDS: METHADONE 10 MG TAB PO SCH (22:14)
[2017-04-05] MEDS: QUEtiapine 200 MG TAB PO SCH (22:15)
[2017-04-05] MEDS: DOXYCYCLINE 50 MG CAP PO SCH (22:15)
[2017-04-05] MEDS: CARVEDILOL 6.25 MG TAB PO SCH (22:15)
[2017-04-05] MEDS: ATORVASTATIN 40 MG TAB PO SCH (22:15)
[2017-04-05] MEDS: GABAPENTIN 300 MG CAP PO SCH (22:15)
[2017-04-06 00:12] LABS: Anion Gap 21 mmol/L; Blood Urea Nitrogen 70 mg/dL (9-20); Chloride 95 mmol/L (98-107); Non-African American GFR(MDRD) 57 (>60 ml/min/1.73 sqM); Phosphorous 4.3 mg/dL (2.5-4.5); Potassium 4.1 mmol/L (3.5-5.1); Sodium 126 mmol/L (137-145)
[2017-04-06 00:20] LABS: Carbon Dioxide 10 mmol/L (22-30); Glucose 799 mg/dL (74-99)
[2017-04-06 01:10] LABS: Glucose,Whole Blood >600 mg/dL (75-99)
[2017-04-06] MEDS: SODIUM CHLORIDE 0.9% 1,000 ML IV SCH ×3 (01:12→10:06)
[2017-04-06 03:28] LABS: Glucose,Whole Blood 591 mg/dL (75-99)
[2017-04-06 04:18] LABS: Glucose,Whole Blood 494 mg/dL (75-99)
[2017-04-06 04:56] LABS: Basophils % (A) 0 %; CH 28.8; Eosinophils % (A) 0 %; HCT 26.8 % (39.0-53.0); HDW 3.36; HGB 8.4 gm/dL (13.0-17.5); Hypochromasia Slight; Luc # (Auto) 0.11; Luc % (Auto) 1; Lymphocytes # (A) 1.2 k/uL (1.0-4.8); Lymphocytes % (A) 9 %; MCH 28.5 pg (25.0-35.0); MCHC 31.4 g/dL (31.0-37.0); Mean Platelet Volume 6.9; Monocytes # (A) 0.4 k/uL (0-1.0); Monocytes % (A) 3 %; Neutrophils # (A) 10.9 k/uL (1.3-7.7); Neutrophils % (A) 86 %; RBC 2.96 m/uL (4.30-5.90); RDW 14.5 % (11.5-15.5); WBC 12.6 k/uL (3.8-10.6); WBC (Perox) 13.13
[2017-04-06 05:06] LABS: Glucose,Whole Blood 486 mg/dL (75-99)
[2017-04-06 05:18] LABS: MCV 90.6 fL (80.0-100.0)
[2017-04-06 05:33] LABS: Anion Gap 11 mmol/L; Blood Urea Nitrogen 64 mg/dL (9-20); Calcium 8.1 mg/dL (8.4-10.2); Carbon Dioxide 18 mmol/L (22-30); Chloride 103 mmol/L (98-107); Magnesium 1.9 mg/dL (1.6-2.3); Non-African American GFR(MDRD) >60 (>60 ml/min/1.73 sqM); Phosphorous 2.9 mg/dL (2.5-4.5); Potassium 3.5 mmol/L (3.5-5.1); Sodium 132 mmol/L (137-145)
[2017-04-06 05:38] LABS: Glucose 502 mg/dL (74-99)
[2017-04-06] MEDS: INSULIN REGULAR 100 UNIT in SODIUM CHLORIDE 0.9% 100 ML IV SCH (06:11)
[2017-04-06 06:12] LABS: Glucose,Whole Blood 369 mg/dL (75-99)
[2017-04-06] MEDS ORDERED: NOREPINEPHRIN 4 MG-0.9% NS PMX 4 MG/250 ML ML IV ONE (07:10)
[2017-04-06 07:17] LABS: Glucose,Whole Blood 359 mg/dL (75-99)
[2017-04-06] MEDS: MAGNESIUM SULFATE-D5W PMX 1 GM in DEXTROSE/WATER 1 100ML.BAG IVPB SCH ×2 (07:25→10:04)
[2017-04-06] MEDS ORDERED: PANTOPRAZOLE 40 MG TABLET PO SCH (07:30)
[2017-04-06] MEDS: NOREPINEPHRIN 4 MG-0.9% NS PMX 4 MG/250 ML ML IV SCH ×2 (08:15→23:40)
--- NOTE | 2017-04-06 08:16 | XR ---
EXAMINATION TYPE: XR chest 1V DATE OF EXAM: 04/06/2017 COMPARISON: Prior chest x-ray 02/04/2017 HISTORY: Cough TECHNIQUE: frontal view of the chest is obtained on 2 images. FINDINGS: There is increased density at the right costophrenic angle, right upper lobe. No pneumotho rax or pleural effusion. There are overlying cardiac leads. Cardiomediastinal silhouette, pulmonary v ascularity and amara are stable. There are underlying emphysematous changes. IMPRESSION: There may be an underlying pneumonia. There is underlying lung disease, consider pulmona ry consult
[2017-04-06 09:17] LABS: Glucose,Whole Blood 266 mg/dL (75-99)
[2017-04-06] MEDS ORDERED: DEXTROSE 5%-0.45% NACL 1,000 ML with POTASSIUM CHLORIDE 20 MEQ IV SCH ×2 (09:30)
--- NOTE | 2017-04-06 09:45 | P.CNPUL ---
History of Present Illness Consult date: 04/06/17 Chief complaint: DKA , sepsis History of present illness: 76-year-old male patient, poorly controlled diabetes mellitus, with known history of osteomyelitis and a stage IV sacral decub ulceration along with history of Vascular disease and previous history of diabetic ulcer status post bilateral AKA, and a previous history of opiate and heroin user, came into the emergency department with DKA and sepsis. The patient was hypothermic. He was in acute DKA. He was in anion gap metabolic acidosis and his blood sugar was about thousand. He was hypothermic with a temperature 92.3 axillary and 92.5 rectal. Note that the patient has been followed up at the wound center by Dr. Becerra. He was in the wound center on 04/01/2017 and he was looking sick and hypotensive and lethargic and septic. He was given IV fluids and he was discharged. Based on the records, the patient's wound appears to be significantly worse and appropriate debridement was done. Based on the most recent cultures from the wound, the cultures on 03/18/2017 showed Karina albicans, VRE and Clostridium. He also is known to have MRSA, pseudomonas aeruginosa that has been multidrug resistant and Enterobacter. Since his admission to the ICU, the patient was aggressively resuscitated IV fluids and the patient received a total of 3 L immediately and currently he is on 0.9 normal saline at the rate of 200 mL an hour. He was on an insulin drip and the 0.9 saline will be switched to D5 normal saline with 20 mg of KCl as the patient's most recent blood sugar is down to 266. The insulin drip is running at 14 units an hour. The most recent electrolytes show a bicarb level of 18, anion gap of 11, a creatinine of 1.2 with a BMI of 64, white cell count is at 12.6 and a hemoglobin of 8.4. The sacral wound is large, 9 x 8 cm in size , grossly necrotic material around the wound with central erythema and purulent discharge covering the lower portion of the base. In addition, the patient remained hypotensive and currently is on 10 mics of levo fed. In terms of antibiotic coverage, the patient was given a dose of vancomycin. The lactic acid level is at 1.2. Urinary may be infected knowing that there are clumps of white cells and occasional bacteria seen. There are also some few budding yeast. The Castañeda was inserted and cultures were also sent.His chest x-ray shows an early right lower lobe pulmonary infiltrate. There is also no other densities in the right upper lobe. A previous CAT scan of the chest that was obtained in 2016 had shown multiple cystic lesions scattered throughout the lung chambers which raises the possibility of emphysema versus use a follicular normal. There is also a previously described left apical lesion measuring 3.8 cm in size. Review of Systems A 12 point review of system was done. Positive findings are almost above in history of present illness. The patient is very lethargic. As mentioned earlier the patient has AK bilateral and coccygeal wound infection and he has been seen by infectious disease in the past. He has a stage IV decubitus ulceration. He has also osteomyelitis. He has had previous hospitalization for DKA. Currently his mental status is also depressed. He was quite hypothermic at time of admission which improved. Very poor medical follow-up. Unable to take care of himself. Placement will be needed. 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 History of Any Multi-Drug Resistant Organisms: MRSA, Other MDRO, VRE Date of last positivie culture/infection: 03/18/17-MRSA; 03/18/17-VRE; 03/18/17- MDRO-PSEUDOMONAS MDRO Source:: Right Leg MRSA and VRE; Coccyx MDRO and MRSA Past Surgical History: Adenoidectomy, Appendectomy, Heart Catheterization, Hernia Repair, Orthopedic Surgery, Tonsillectomy Additional Past Surgical History / Comment(s): R BKA, R BKA revision to AKA, L AKA , rt arm picc line -since removed Past Anesthesia/Blood Transfusion Reactions: No Reported Reaction Additional Past Anesthesia/Blood Transfusion Reaction / Comment(s): Pt recently received blood. Past Psychological History: Depression Additional Psychological History / Comment(s): Pt is back home residing alone at [address]. He is in a wheelchair and transfers himself. He does not drive. He uses the bus. Smoking Status: Current every day smoker Past Alcohol Use History: None Reported Additional Past Alcohol Use History / Comment(s): STARTED SMOKING AT AGE 12 1/2 PPD. currently smoking 1 ppd PT STATED HE STARTED USING HEROIN AT AGE 29 AND QUIT AT AGE 47. Past Drug Use History: Heroin Additional Drug Use History / Comment(s): PT STATED HE QUIT HEROIN AT AGE 47. Pt is on methadone. - Past Family History Mother Family Medical History: Cancer Additional Family Medical History / Comment(s): Mother of brain cancer mets at the age of 68 yrs. Father Family Medical History: Cancer, Coronary Artery Disease (CAD) Additional Family Medical History / Comment(s): Father of throat cancer at the age of 70yrs. Medications and Allergies Home Medications Medication Instructions Recorded Confirmed Type Carvedilol [Coreg] 6.25 mg PO BID 06/13/14 04/06/17 History Gabapentin [Neurontin] 300 mg PO TID 01/28/16 04/05/17 History Omeprazole 20 mg PO DAILY 06/12/16 04/06/17 History Multivitamins, Thera [Multivitamin 1 tab PO DAILY 10/13/16 04/05/17 History (formulary)] QUEtiapine [SEROquel] 200 mg PO HS 10/13/16 04/06/17 History Insulin Detemir [Levemir] 38 unit SQ HS 01/14/17 04/05/17 History Atorvastatin [Lipitor] 40 mg PO HS 02/04/17 04/06/17 History Collagenase [Santyl] 1 applic TOPICAL DAILY 04/05/17 04/06/17 History DULoxetine HCL [Cymbalta] 30 mg PO BID 04/06/17 04/06/17 History INSULIN LISPRO (humaLOG) [HumaLOG] 8 units SQ AC-TID 04/06/17 04/06/17 History Insulin Glargine [Lantus] 38 unit SQ DAILY 04/06/17 04/06/17 History Losartan Potassium [Losartan 25 mg PO DAILY 04/06/17 04/06/17 History Potassium] hydrALAZINE HCL [Apresoline] 50 mg PO TID 04/06/17 04/06/17 History Allergies Allergy/AdvReac Type Severity Reaction Status Date / Time piperacillin [From Zosyn] Allergy Severe Dyspnea Verified 04/01/17 11:05 tazobactam [From Zosyn] Allergy Severe Dyspnea Verified 04/01/17 11:05 tramadol Allergy Unknown Verified 04/06/17 08:43 fentanyl AdvReac Lightheaded Verified 04/06/17 08:43 ketorolac tromethamine AdvReac Nausea Verified 04/01/17 11:05 [From Toradol] Physical Exam Vitals: Vital Signs Temp Pulse Resp BP Pulse Ox 04/06/17 07:15 79 15 64/47 98 04/06/17 07:00 78 16 68/39 98 04/06/17 06:30 77 20 73/40 100 04/06/17 06:15 80 24 77/44 100 04/06/17 06:00 80 20 77/44 100 04/06/17 05:30 80 22 90/47 100 04/06/17 05:00 79 21 78/45 100 04/06/17 04:30 78 20 84/49 100 04/06/17 04:00 96.1 F L 78 22 90/49 100 04/06/17 03:30 77 16 129/56 100 04/06/17 03:00 77 20 112/56 100 04/06/17 02:30 77 22 105/56 100 04/06/17 02:00 74 14 107/54 91 L 04/06/17 01:30 75 20 91/49 100 04/06/17 01:00 74 19 81/48 100 04/06/17 00:30 96.7 F L 71 22 77/49 100 04/06/17 00:00 75 14 98/64 100 04/05/17 23:38 76 17 103/62 100 04/05/17 23:30 76 15 103/62 93 L 04/05/17 23:00 75 15 122/71 92 L 04/05/17 22:30 94.7 F L 77 20 72/51 99 04/05/17 22:00 79 15 119/82 93 L 04/05/17 21:30 75 16 97/71 97 04/05/17 21:00 92.5 F L 74 14 98/73 90 L 04/05/17 20:21 92.4 F L 69 24 117/65 99 04/05/17 19:30 70 20 151/75 04/05/17 17:34 75 18 121/71 100 Intake and Output 04/05/17 04/06/17 04/06/17 22:59 06:59 14:59 Intake Total 637.681 5840.301 614.63 Output Total 625 600 Balance 463.255 4819.301 14.63 Intake: IV 400 1600 600 Sodium Chloride 0.9% 1, 400 1600 600 000 ml @ 200 mls/hr IV . Q5H ROSA Rx#:[id number] Intake, IV Titration 10.988 78.301 14.63 Amount Insulin Regular 100 unit 10.988 78.301 14.63 In Sodium Chloride 0.9% 100 ml @ 0.1 UNITS/KG/HR 5.36 mls/hr IV .[id number] ROSA Rx#:[id number] Oral 30 Output: Urine 625 600 Other: Voiding Method Urinal # Voids 1 Weight 41.3 kg 42.7 kg Very thin, cachectic, emaciated, sick looking, malnourished patient who looks way above his age. His resting comfortably in bed. He is arousable. He will follow commands and answer simple questions.Head exam was generally normal. There was no scleral icterus or corneal arcus. Mucous membranes were moist. Eyes are sunken and mucous membranes are dry. He has very poor dentition and multiple missing teeth and dental caries. No thrush. No neck stiffness. No adenopathy. Lungs are diminished bilaterally along with some scattered rhonchi and scattered expiratory wheezes. Heart sounds are regular, positive S1-S2 and there is a faint grade 2 systolic ejection murmur heard throughout the precordium.Abdominal exam revealed normal bowel sounds. The abdomen was soft, non-tender, and without masses, organomegaly, or appreciable enlargement of the abdominal aorta. Extremities reveal above-knee amputation bilaterally, upper extremities are within normal limits. Coccygeal wound is 9 x 8 cm in size, deep to the bone, overlying tissue is quite erythematous and areas of necrosis with purulent material discharged. Results - Laboratory Findings CBC and BMP: 04/06/17 04:09 04/06/17 04:09 Abnormal lab findings: Abnormal Labs 04/05/17 04/05/17 04/05/17 17:55 17:55 17:55 WBC 14.0 H RBC 3.32 L Hgb 9.5 L Hct 34.6 L MCV 104.1 H D MCHC 27.4 L Plt Count 544 H Neutrophils # 12.6 H Lymphocytes # 0.8 L VBG pH 7.11 L* VBG pCO2 22 L VBG HCO3 7 L* Sodium 115 L* Potassium 5.4 H Chloride 76 L* Carbon Dioxide <5 L* BUN 77 H Creatinine 1.94 H Glucose 1329 H* POC Glucose (mg/dL) Osmolality 359 H* Calcium AST 13 L Total Protein Albumin Urine Protein Urine Glucose (UA) Urine Ketones Ur Leukocyte Esterase Urine WBC Urine WBC Clumps Amorphous Sediment Urine Bacteria Urine Mucus Urine Yeast (Budding) 04/05/17 04/05/17 04/05/17 19:34 19:45 20:25 WBC RBC Hgb Hct MCV MCHC Plt Count Neutrophils # Lymphocytes # VBG pH VBG pCO2 VBG HCO3 Sodium 120 L* Potassium Chloride 84 L Carbon Dioxide <5 L* BUN 71 H Creatinine 1.66 H Glucose 1148 H* POC Glucose (mg/dL) >600 H Osmolality Calcium 7.6 L AST 12 L Total Protein 6.2 L Albumin 3.3 L Urine Protein Trace H Urine Glucose (UA) 4+ H Urine Ketones 2+ H Ur Leukocyte Esterase Moderate H Urine WBC 71 H Urine WBC Clumps Many H Amorphous Sediment Occasional H Urine Bacteria Rare H Urine Mucus Rare H Urine Yeast (Budding) Few H 04/05/17 04/05/17 04/05/17 22:11 22:46 23:33 WBC RBC Hgb Hct MCV MCHC Plt Count Neutrophils # Lymphocytes # VBG pH VBG pCO2 VBG HCO3 Sodium 126 L Potassium Chloride 95 L Carbon Dioxide 10 L* BUN 70 H Creatinine 1.30 H Glucose 936 H* 799 H* POC Glucose (mg/dL) >600 H Osmolality Calcium AST Total Protein Albumin Urine Protein Urine Glucose (UA) Urine Ketones Ur Leukocyte Esterase Urine WBC Urine WBC Clumps Amorphous Sediment Urine Bacteria Urine Mucus Urine Yeast (Budding) 04/06/17 04/06/17 04/06/17 01:09 01:18 03:27 WBC RBC Hgb Hct MCV MCHC Plt Count Neutrophils # Lymphocytes # VBG pH VBG pCO2 VBG HCO3 Sodium Potassium Chloride Carbon Dioxide BUN Creatinine Glucose 678 H* POC Glucose (mg/dL) >600 H 591 H Osmolality Calcium AST Total Protein Albumin Urine Protein Urine Glucose (UA) Urine Ketones Ur Leukocyte Esterase Urine WBC Urine WBC Clumps Amorphous Sediment Urine Bacteria Urine Mucus Urine Yeast (Budding) 04/06/17 04/06/17 04/06/17 04:09 04:09 04:16 WBC 12.6 H RBC 2.96 L Hgb 8.4 L Hct 26.8 L MCV MCHC Plt Count 463 H Neutrophils # 10.9 H Lymphocytes # VBG pH VBG pCO2 VBG HCO3 Sodium 132 L Potassium Chloride Carbon Dioxide 18 L BUN 64 H Creatinine Glucose 502 H* POC Glucose (mg/dL) 494 H Osmolality Calcium 8.1 L AST Total Protein Albumin Urine Protein Urine Glucose (UA) Urine Ketones Ur Leukocyte Esterase Urine WBC Urine WBC Clumps Amorphous Sediment Urine Bacteria Urine Mucus Urine Yeast (Budding) 04/06/17 04/06/17 04/06/17 05:05 06:11 07:16 WBC RBC Hgb Hct MCV MCHC Plt Count Neutrophils # Lymphocytes # VBG pH VBG pCO2 VBG HCO3 Sodium Potassium Chloride Carbon Dioxide BUN Creatinine Glucose POC Glucose (mg/dL) 486 H 369 H 359 H Osmolality Calcium AST Total Protein Albumin Urine Protein Urine Glucose (UA) Urine Ketones Ur Leukocyte Esterase Urine WBC Urine WBC Clumps Amorphous Sediment Urine Bacteria Urine Mucus Urine Yeast (Budding) 04/06/17 09:14 WBC RBC Hgb Hct MCV MCHC Plt Count Neutrophils # Lymphocytes # VBG pH VBG pCO2 VBG HCO3 Sodium Potassium Chloride Carbon Dioxide BUN Creatinine Glucose POC Glucose (mg/dL) 266 H Osmolality Calcium AST Total Protein Albumin Urine Protein Urine Glucose (UA) Urine Ketones Ur Leukocyte Esterase Urine WBC Urine WBC Clumps Amorphous Sediment Urine Bacteria Urine Mucus Urine Yeast (Budding) - Diagnostic Findings Chest x-ray: image reviewed Assessment and Plan Plan: Assessment 1 DKA, likely due to an underlying poor compliance to diabetes treatment and sepsis exacerbating his low blood sugar control. 2 severe anion gap metabolic acidosis secondary to DKA, improving 3 decubitus ulcer of the sacral region, stage IV. Patient has had previous cultures and debridement and the most recent cultures indicating possibility of a karina, VRE, Pseudomonas and MRSA infection 4 sepsis with secondary hypotension, failed to respond to fluid resuscitation and the patient is currently on pressors at 10 mics of levo fed 5 suspected urine checked infection, there are budding yeasts within the urine analysis tomorrow rule out fungal urinary tract infection 6 hypothermia, partly related to sepsis 7 severe peripheral vascular disease with above-knee petition bilaterally 8. Hepatitis C viral infection of the liver 9 COPD with emphysematous cystic changes scattered throughout the lung chambers rule out underlying eosinophilic granuloma of the lung 10 chronic smoker 11 chronic anemia 12 history of substance abuse including IV drug use 15 peripheral neuropathy 14 migraine 15 coronary artery disease with previous history of myocardial infarction 16 poor nutrition and malnourishment 17 depression 18 very poor ability to take care of his medical needs and the patient unfortunately seems to be living independently to the state. Plan Continue fluid resuscitation. Give the patient additional 2 L of bolus of normal saline right now. Monitor the blood sugar and switch this patient to D5 normal saline once his blood sugar drops below 250. Keep the insulin drip running for now. Meanwhile, monitor the electrodes every 4 hours, monitor the blood sugars an hourly basis. Cover the patient with broad-spectrum antibiotics. My suggestion is to give the patient a combination of daptomycin, micafungin and meropenem and will consult ID and general surgery regarding surgical debridement. Apply Aquacel silver to this sacrum. Meanwhile, we can resume his outpatient medications including his pain medication that includes methadone. Heparin subcu for DVT prophylaxis. IV Protonix. We'll continue to follow. Nose extremely poor. Social work consult and placement
[2017-04-06] MEDS ORDERED: LEVOFLOXACIN 750MG-D5W PMX 750 MG in DEXTROSE/WATER 1 150ML.BAG IVPB SCH (10:00)
[2017-04-06] MEDS ORDERED: COLLAGENASE 250 UNIT/GM OINTMENT 30 GM TUBE TOPICAL SCH (10:00)
[2017-04-06] MEDS: CARVEDILOL 6.25 MG TAB PO SCH ×2 (10:02→18:21)
[2017-04-06] MEDS: POTASSIUM CHLORIDE ER 20 MEQ TAB.ER PO SCH ×4 (10:06→20:13)
[2017-04-06] MEDS: D5-0.45% NACL WITH KCL 20MEQ/L 1,000 ML IV SCH ×2 (10:08→20:11)
[2017-04-06] MEDS: DOXYCYCLINE 50 MG CAP PO SCH ×2 (10:08→20:13)
[2017-04-06] MEDS: GABAPENTIN 300 MG CAP PO SCH ×3 (10:08→20:14)
[2017-04-06] MEDS: ASPIRIN 81 MG CHEW PO SCH (10:08)
[2017-04-06] MEDS: LOSARTAN 25 MG TAB PO SCH (10:08)
[2017-04-06] MEDS: HEPARIN SODIUM,PORCINE 5,000 UNIT/ML 1 ML VIAL SQ SCH ×2 (10:09→18:21)
[2017-04-06] MEDS: DULoxetine HCL 30 MG CAPSULE.DR PO SCH ×2 (10:09→20:14)
[2017-04-06] MEDS: PANTOPRAZOLE 40 MG/10 ML VIAL IVP SCH (10:10)
[2017-04-06] MEDS: METHADONE 10 MG TAB PO SCH ×2 (10:11→18:24)
[2017-04-06] MEDS ORDERED: SODIUM CHLORIDE 0.9% 2,000 ML IV ONE (10:31)
[2017-04-06] MEDS: MICAFUNGIN 100 MG in SODIUM CHLORIDE 0.9% 100 ML IVPB SCH (10:40)
[2017-04-06 10:47] LABS: Glucose,Whole Blood 189 mg/dL (75-99)
[2017-04-06 11:55] LABS: Glucose,Whole Blood 122 mg/dL (75-99)
[2017-04-06] MEDS ORDERED: VANCOMYCIN 750 MG in SODIUM CHLORIDE 0.9% 250 ML IVPB SCH (12:00)
[2017-04-06] MEDS ORDERED: VANCOMYCIN 1,000 MG in SODIUM CHLORIDE 0.9% 250 ML IVPB SCH ×4 (12:00)
[2017-04-06 13:14] LABS: Glucose,Whole Blood 144 mg/dL (75-99)
[2017-04-06] MEDS: MULTIVITAMINS, THERA 1 EACH TAB PO SCH (13:16)
[2017-04-06 15:05] LABS: Glucose,Whole Blood 60 mg/dL (75-99)
[2017-04-06] MEDS ORDERED: TERBUTALINE 1 MG/ML VIAL SQ ONE (15:08)
[2017-04-06 15:51] LABS: Anion Gap 7 mmol/L; Blood Urea Nitrogen 45 mg/dL (9-20); Carbon Dioxide 17 mmol/L (22-30); Chloride 115 mmol/L (98-107); Glucose 59 mg/dL (74-99); Non-African American GFR(MDRD) >60 (>60 ml/min/1.73 sqM); Phosphorous 1.8 mg/dL (2.5-4.5); Potassium 3.5 mmol/L (3.5-5.1); Sodium 139 mmol/L (137-145)
[2017-04-06 15:54] LABS: Glucose,Whole Blood >600 mg/dL (75-99)
[2017-04-06 15:55] LABS: Glucose,Whole Blood 73 mg/dL (75-99)
[2017-04-06] MEDS ORDERED: Phosphorus Replacement Protoco 1 EACH MISC MISCELLANE PRN (16:17)
[2017-04-06] MEDS ORDERED: Potassium Replacement Protocol 1 EACH MISC MISCELLANE PRN (16:18)
[2017-04-06] MEDS: SODIUM PHOSPHATE 10 MMOL in SODIUM CHLORIDE 0.9% 250 ML IVPB SCH ×2 (18:22→20:13)
[2017-04-06] MEDS: INSULIN LISPRO (humaLOG) 300 UNIT/3 ML VIAL SQ SCH ×3 (18:35→22:26)
[2017-04-06 18:38] LABS: Glucose,Whole Blood 239 mg/dL (75-99)
[2017-04-06] MEDS: ATORVASTATIN 40 MG TAB PO SCH (20:13)
[2017-04-06] MEDS: QUEtiapine 200 MG TAB PO SCH (20:14)
--- NOTE | 2017-04-06 20:41 | P.HPIM ---
History of Present Illness H&P Date: 04/06/17 Chief Complaint: Diabetic ketoacidosis, sepsis Shree is a 56-year-old male patient, with poorly controlled diabetes mellitus, known history of osteomyelitis and a stage IV sacral decubitus ulceration along with a history of vascular disease and a previous history of diabetic ulcer and status post bilateral above-knee amputations. Patient also has a known previous history of opiate and heroin user presented via the hospital via the emergency room but in diabetic ketoacidosis and septic. Patient was hypothermic. He was in acute DKA. 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 Since his admission to the ICU, patient has been aggressively resuscitated with IV fluid Review of Systems Constitutional: Reports as per HPI, Reports fever, Reports malaise, Reports weakness Ears, nose, mouth and throat: Reports as per HPI Cardiovascular: Reports as per HPI, Reports dyspnea on exertion, Reports rapid heart beat Respiratory: Reports as per HPI Gastrointestinal: Reports as per HPI Genitourinary: Reports as per HPI Musculoskeletal: Reports as per HPI, Reports prior amputations Integumentary: Reports wounds Neurological: Reports as per HPI Psychiatric: Reports as per HPI Endocrine: Reports fatigue, Reports high blood sugars, Reports palpitations Hematologic/Lymphatic: Reports as per HPI Allergic/Immunologic: Reports as per HPI Past Medical History Past Medical History: COPD, Diabetes Mellitus, Liver Disease, Musculoskeletal Disorder, Vascular Disorder Additional Past Medical History / Comment(s): Hepatitis C viral infection, as independent diabetes mellitus, peripheral vascular disease, diabetic ulceration , above-knee amputation bilaterally, COPD with emphysematous changes scattered throughout the lung chambers, left apical lung lesion, chronic back pain, chronic anemia, gastric ulcer disease , migraine, multiple infections including infections with MRSA, VRE, Pseudomonas multidrug resistant as evident in the wound cultures from the coccyx. History of Any Multi-Drug Resistant Organisms: MRSA, Other MDRO, VRE Date of last positivie culture/infection: 03/18/17-MRSA; 03/18/17-VRE; 03/18/17- MDRO-PSEUDOMONAS MDRO Source:: Right Leg MRSA and VRE; Coccyx MDRO and MRSA Past Surgical History: Adenoidectomy, Appendectomy, Heart Catheterization, Hernia Repair, Orthopedic Surgery, Tonsillectomy Additional Past Surgical History / Comment(s): R BKA, R BKA revision to AKA, L AKA , rt arm picc line -since removed Past Anesthesia/Blood Transfusion Reactions: No Reported Reaction Additional Past Anesthesia/Blood Transfusion Reaction / Comment(s): Pt recently received blood. Past Psychological History: Depression Additional Psychological History / Comment(s): Pt is back home residing alone at [facility]. He is in a wheelchair and transfers himself. He does not drive. He uses the bus. Smoking Status: Current every day smoker Past Alcohol Use History: None Reported Additional Past Alcohol Use History / Comment(s): STARTED SMOKING AT AGE 12 1/2 PPD. currently smoking 1 ppd PT STATED HE STARTED USING HEROIN AT AGE 29 AND QUIT AT AGE 47. Past Drug Use History: Heroin Additional Drug Use History / Comment(s): PT STATED HE QUIT HEROIN AT AGE 47. Pt is on methadone. - Past Family History Mother Family Medical History: Cancer Additional Family Medical History / Comment(s): Mother of brain cancer mets at the age of 68 yrs. Father Family Medical History: Cancer, Coronary Artery Disease (CAD) Additional Family Medical History / Comment(s): Father of throat cancer at the age of 70yrs. Medications and Allergies Home Medications Medication Instructions Recorded Confirmed Type Carvedilol [Coreg] 6.25 mg PO BID 06/13/14 04/06/17 History Gabapentin [Neurontin] 300 mg PO TID 01/28/16 04/05/17 History Omeprazole 20 mg PO DAILY 06/12/16 04/06/17 History Multivitamins, Thera [Multivitamin 1 tab PO DAILY 10/13/16 04/05/17 History (formulary)] QUEtiapine [SEROquel] 200 mg PO HS 10/13/16 04/06/17 History Insulin Detemir [Levemir] 38 unit SQ HS 01/14/17 04/05/17 History Atorvastatin [Lipitor] 40 mg PO HS 02/04/17 04/06/17 History Collagenase [Santyl] 1 applic TOPICAL DAILY 04/05/17 04/06/17 History DULoxetine HCL [Cymbalta] 30 mg PO BID 04/06/17 04/06/17 History INSULIN LISPRO (humaLOG) [HumaLOG] 8 units SQ AC-TID 04/06/17 04/06/17 History Insulin Glargine [Lantus] 38 unit SQ DAILY 04/06/17 04/06/17 History Losartan Potassium [Losartan 25 mg PO DAILY 04/06/17 04/06/17 History Potassium] hydrALAZINE HCL [Apresoline] 50 mg PO TID 04/06/17 04/06/17 History Allergies Allergy/AdvReac Type Severity Reaction Status Date / Time piperacillin [From Zosyn] Allergy Severe Dyspnea Verified 04/01/17 11:05 tazobactam [From Zosyn] Allergy Severe Dyspnea Verified 04/01/17 11:05 tramadol Allergy Unknown Verified 04/06/17 08:43 fentanyl AdvReac Lightheaded Verified 04/06/17 08:43 ketorolac tromethamine AdvReac Nausea Verified 04/01/17 11:05 [From Toradol] Physical Exam Osteopathic Statement: *. No significant issues noted on an osteopathic structural exam other than those noted in the History and Physical/Consult. Vitals: Vital Signs Temp Pulse Resp BP Pulse Ox 04/06/17 18:00 81 30 H 115/69 99 04/06/17 17:30 82 23 104/69 98 04/06/17 17:00 84 18 103/67 98 04/06/17 16:30 80 32 H 78/56 98 04/06/17 16:15 81 15 90/60 99 04/06/17 16:00 98.1 F 83 33 H 97/60 99 04/06/17 15:45 81 27 H 105/65 100 04/06/17 15:30 81 17 81/58 100 04/06/17 15:15 82 37 H 161/78 99 04/06/17 15:00 85 67 H 96/59 100 04/06/17 14:45 81 44 H 95/62 97 04/06/17 14:30 82 19 90/62 98 04/06/17 14:15 82 85 H 80/68 97 04/06/17 14:00 84 37 H 118/80 99 04/06/17 13:45 83 48 H 112/75 98 04/06/17 13:30 86 75 H 116/85 100 04/06/17 13:15 88 28 H 108/71 100 04/06/17 13:00 86 34 H 110/66 100 04/06/17 12:45 92 33 H 115/79 100 04/06/17 12:30 92 26 H 103/72 100 04/06/17 12:15 89 18 82/66 100 04/06/17 12:00 97.6 F 90 25 H 101/71 100 04/06/17 11:45 88 49 H 86/63 100 04/06/17 11:30 88 35 H 97/66 100 04/06/17 11:15 90 25 H 90/66 100 04/06/17 11:00 90 51 H 75/56 97 04/06/17 10:45 92 35 H 120/75 96 04/06/17 10:30 94 61 H 95/67 100 04/06/17 10:15 90 56 H 86/68 100 04/06/17 10:00 93 49 H 105/67 100 04/06/17 09:45 89 55 H 87/61 100 04/06/17 09:30 91 61 H 96/67 100 04/06/17 09:15 92 40 H 108/70 100 04/06/17 09:00 94 47 H 96/67 100 04/06/17 08:45 91 52 H 76/57 99 04/06/17 08:30 91 51 H 79/58 100 04/06/17 08:20 22 04/06/17 08:15 90 46 H 79/61 100 04/06/17 08:00 98.8 F 89 44 H 84/60 100 04/06/17 07:45 79 24 68/50 100 04/06/17 07:30 80 29 H 63/53 100 04/06/17 07:15 79 15 64/47 98 04/06/17 07:00 78 16 68/39 98 04/06/17 06:30 77 20 73/40 100 04/06/17 06:15 80 24 77/44 100 04/06/17 06:00 80 20 77/44 100 04/06/17 05:30 80 22 90/47 100 04/06/17 05:00 79 21 78/45 100 04/06/17 04:30 78 20 84/49 100 04/06/17 04:00 96.1 F L 78 22 90/49 100 04/06/17 03:30 77 16 129/56 100 04/06/17 03:00 77 20 112/56 100 04/06/17 02:30 77 22 105/56 100 04/06/17 02:00 74 14 107/54 91 L 04/06/17 01:30 75 20 91/49 100 04/06/17 01:00 74 19 81/48 100 04/06/17 00:30 96.7 F L 71 22 77/49 100 04/06/17 00:00 75 14 98/64 100 04/05/17 23:38 76 17 103/62 100 04/05/17 23:30 76 15 103/62 93 L 04/05/17 23:00 75 15 122/71 92 L 04/05/17 22:30 94.7 F L 77 20 72/51 99 04/05/17 22:00 79 15 119/82 93 L 04/05/17 21:30 75 16 97/71 97 04/05/17 21:00 92.5 F L 74 14 98/73 90 L Intake and Output 04/06/17 04/06/17 04/06/17 06:59 14:59 22:59 Intake Total 4614.534 3085.643 2056.919 Output Total 625 1700 550 Balance 4070.398 9360.643 1506.919 Intake: IV 1600 1600 Sodium Chloride 0.9% 1, 1600 1600 000 ml @ 200 mls/hr IV . Q5H [facility] Rx#:[id number] Intake, IV Titration 78.301 2822.643 2056.919 Amount D5-0.45% NaCl with KCl 150 100 20Meq/l 1,000 ml @ 50 mls /hr IV .Q20H [facility] Rx#: [id number] Dextrose 5%-0.45% NaCl 1, 600 300 000 ml @ 150 mls/hr IV . Q6H44M [facility] with Potassium Chloride 20 meq Rx#: [id number] Insulin Regular 100 unit 78.301 88.268 12.732 In Sodium Chloride 0.9% 100 ml @ 0.1 UNITS/KG/HR 5.36 mls/hr IV .[id number] [facility] Rx#:[id number] Levofloxacin 750Mg-D5w 100 Pmx 750 mg In Dextrose/ Water 1 150ml.bag @ 100 mls/hr IVPB Q24H [facility] Rx#: [id number] Levofloxacin 750Mg-D5w 100 Pmx 750 mg In Dextrose/ Water 1 150ml.bag @ 100 mls/hr IVPB Q48H [facility] Rx#: [id number] Magnesium Sulfate-D5w Pmx 100 1 gm In Dextrose/Water 1 100ml.bag @ 100 mls/hr IVPB Q1H [facility] Rx#: [id number] Micafungin 100 mg In 100 Sodium Chloride 0.9% 100 ml @ 100 mls/hr IVPB DAILY [facility] Rx#:[id number] Norepinephrin 4 mg-0.9% 184.375 44.187 Ns Pmx 4 mg In 250 ml @ Titrate IV .Q0M [facility] Rx#: [id number] Sodium Chloride 0.9% 2, 1500 1500 000 ml @ 999 mls/hr IV . Q2H1M [facility] Rx#:[id number] Output: Urine 625 1700 550 Other: Voiding Method Urinal Indwelling Catheter # Voids 1 Weight 42.7 kg 42.7 kg Patient Weight 04/07/17 06:59 Weight 42.7 kg General: [Patient awake, alert and oriented times 3. Patient in acute distress cachectic emaciated malnourished arousable HEENT: [PERRL. EOMI. No pharyngeal erythema or exudate.] No scleral icterus mucous membranes are moist Poor dentition multiple missing teeth and dental caries Neck: [No adenopathy.] Cardiac: [Heart regular in rate and rhythm. No S3. No S4. No clicks, rubs. Grade 2 systolic ejection murmur.] Lungs: Diminished bilaterally with scattered rhonchi and wheezes Abdomen: [No mass. No organomegaly. Bowel sounds presnt and normoactive in all 4 quadrants.] Extremes: Bilateral AKA : Coccygeal wound is 9 x 8 cm in size deep to the bone overlying tissue is quite erythematous and areas neck of necrosis and purulence Musculoskeletal: [No joint erythema, edema or tenderness.] Skin: [No rash.] Neurologic: [No lateralizing deficits. CN II - XII grossly intact.] Lymphatic: [No adenopathy.] Results CBC & Chem 7: 04/06/17 04:09 04/06/17 15:32 Labs: Abnormal Lab Results - Last 24 Hours (Table) 04/05/17 04/05/17 04/05/17 Range/Units 20:25 22:11 22:46 WBC (3.8-10.6) k/uL RBC (4.30-5.90) m/uL Hgb (13.0-17.5) gm/dL Hct (39.0-53.0) % Plt Count (150-450) k/uL Neutrophils # (1.3-7.7) k/uL Sodium (137-145) mmol/L Chloride (98-107) mmol/L Carbon Dioxide (22-30) mmol/L BUN (9-20) mg/dL Creatinine (0.66-1.25) mg/dL Glucose 936 H* (74-99) mg/dL POC Glucose (mg/dL) >600 H (75-99) mg/dL Calcium (8.4-10.2) mg/dL Phosphorus (2.5-4.5) mg/dL Urine Protein Trace H (Negative) Urine Glucose (UA) 4+ H (Negative) Urine Ketones 2+ H (Negative) Ur Leukocyte Esterase Moderate H (Negative) Urine WBC 71 H (0-5) /hpf Urine WBC Clumps Many H (None) /hpf Amorphous Sediment Occasional H (None) /hpf Urine Bacteria Rare H (None) /hpf Urine Mucus Rare H (None) /hpf Urine Yeast (Budding) Few H (None) /hpf 04/05/17 04/06/17 04/06/17 Range/Units 23:33 01:09 01:18 WBC (3.8-10.6) k/uL RBC (4.30-5.90) m/uL Hgb (13.0-17.5) gm/dL Hct (39.0-53.0) % Plt Count (150-450) k/uL Neutrophils # (1.3-7.7) k/uL Sodium 126 L (137-145) mmol/L Chloride 95 L (98-107) mmol/L Carbon Dioxide 10 L* (22-30) mmol/L BUN 70 H (9-20) mg/dL Creatinine 1.30 H (0.66-1.25) mg/dL Glucose 799 H* 678 H* (74-99) mg/dL POC Glucose (mg/dL) >600 H (75-99) mg/dL Calcium (8.4-10.2) mg/dL Phosphorus (2.5-4.5) mg/dL Urine Protein (Negative) Urine Glucose (UA) (Negative) Urine Ketones (Negative) Ur Leukocyte Esterase (Negative) Urine WBC (0-5) /hpf Urine WBC Clumps (None) /hpf Amorphous Sediment (None) /hpf Urine Bacteria (None) /hpf Urine Mucus (None) /hpf Urine Yeast (Budding) (None) /hpf 04/06/17 04/06/17 04/06/17 Range/Units 03:27 04:09 04:09 WBC 12.6 H (3.8-10.6) k/uL RBC 2.96 L (4.30-5.90) m/uL Hgb 8.4 L (13.0-17.5) gm/dL Hct 26.8 L (39.0-53.0) % Plt Count 463 H (150-450) k/uL Neutrophils # 10.9 H (1.3-7.7) k/uL Sodium 132 L (137-145) mmol/L Chloride (98-107) mmol/L Carbon Dioxide 18 L (22-30) mmol/L BUN 64 H (9-20) mg/dL Creatinine (0.66-1.25) mg/dL Glucose 502 H* (74-99) mg/dL POC Glucose (mg/dL) 591 H (75-99) mg/dL Calcium 8.1 L (8.4-10.2) mg/dL Phosphorus (2.5-4.5) mg/dL Urine Protein (Negative) Urine Glucose (UA) (Negative) Urine Ketones (Negative) Ur Leukocyte Esterase (Negative) Urine WBC (0-5) /hpf Urine WBC Clumps (None) /hpf Amorphous Sediment (None) /hpf Urine Bacteria (None) /hpf Urine Mucus (None) /hpf Urine Yeast (Budding) (None) /hpf 04/06/17 04/06/17 04/06/17 Range/Units 04:16 05:05 06:11 WBC (3.8-10.6) k/uL RBC (4.30-5.90) m/uL Hgb (13.0-17.5) gm/dL Hct (39.0-53.0) % Plt Count (150-450) k/uL Neutrophils # (1.3-7.7) k/uL Sodium (137-145) mmol/L Chloride (98-107) mmol/L Carbon Dioxide (22-30) mmol/L BUN (9-20) mg/dL Creatinine (0.66-1.25) mg/dL Glucose (74-99) mg/dL POC Glucose (mg/dL) 494 H 486 H 369 H (75-99) mg/dL Calcium (8.4-10.2) mg/dL Phosphorus (2.5-4.5) mg/dL Urine Protein (Negative) Urine Glucose (UA) (Negative) Urine Ketones (Negative) Ur Leukocyte Esterase (Negative) Urine WBC (0-5) /hpf Urine WBC Clumps (None) /hpf Amorphous Sediment (None) /hpf Urine Bacteria (None) /hpf Urine Mucus (None) /hpf Urine Yeast (Budding) (None) /hpf 04/06/17 04/06/17 04/06/17 Range/Units 07:16 09:14 10:26 WBC (3.8-10.6) k/uL RBC (4.30-5.90) m/uL Hgb (13.0-17.5) gm/dL Hct (39.0-53.0) % Plt Count (150-450) k/uL Neutrophils # (1.3-7.7) k/uL Sodium (137-145) mmol/L Chloride (98-107) mmol/L Carbon Dioxide (22-30) mmol/L BUN (9-20) mg/dL Creatinine (0.66-1.25) mg/dL Glucose (74-99) mg/dL POC Glucose (mg/dL) 359 H 266 H 189 H (75-99) mg/dL Calcium (8.4-10.2) mg/dL Phosphorus (2.5-4.5) mg/dL Urine Protein (Negative) Urine Glucose (UA) (Negative) Urine Ketones (Negative) Ur Leukocyte Esterase (Negative) Urine WBC (0-5) /hpf Urine WBC Clumps (None) /hpf Amorphous Sediment (None) /hpf Urine Bacteria (None) /hpf Urine Mucus (None) /hpf Urine Yeast (Budding) (None) /hpf 04/06/17 04/06/17 04/06/17 Range/Units 11:37 13:13 15:03 WBC (3.8-10.6) k/uL RBC (4.30-5.90) m/uL Hgb (13.0-17.5) gm/dL Hct (39.0-53.0) % Plt Count (150-450) k/uL Neutrophils # (1.3-7.7) k/uL Sodium (137-145) mmol/L Chloride (98-107) mmol/L Carbon Dioxide (22-30) mmol/L BUN (9-20) mg/dL Creatinine (0.66-1.25) mg/dL Glucose (74-99) mg/dL POC Glucose (mg/dL) 122 H 144 H 60 L (75-99) mg/dL Calcium (8.4-10.2) mg/dL Phosphorus (2.5-4.5) mg/dL Urine Protein (Negative) Urine Glucose (UA) (Negative) Urine Ketones (Negative) Ur Leukocyte Esterase (Negative) Urine WBC (0-5) /hpf Urine WBC Clumps (None) /hpf Amorphous Sediment (None) /hpf Urine Bacteria (None) /hpf Urine Mucus (None) /hpf Urine Yeast (Budding) (None) /hpf 04/06/17 04/06/17 04/06/17 Range/Units 15:31 15:32 15:32 WBC (3.8-10.6) k/uL RBC (4.30-5.90) m/uL Hgb (13.0-17.5) gm/dL Hct (39.0-53.0) % Plt Count (150-450) k/uL Neutrophils # (1.3-7.7) k/uL Sodium (137-145) mmol/L Chloride 115 H (98-107) mmol/L Carbon Dioxide 17 L (22-30) mmol/L BUN 45 H (9-20) mg/dL Creatinine (0.66-1.25) mg/dL Glucose 59 L (74-99) mg/dL POC Glucose (mg/dL) >600 H 73 L (75-99) mg/dL Calcium (8.4-10.2) mg/dL Phosphorus 1.8 L (2.5-4.5) mg/dL Urine Protein (Negative) Urine Glucose (UA) (Negative) Urine Ketones (Negative) Ur Leukocyte Esterase (Negative) Urine WBC (0-5) /hpf Urine WBC Clumps (None) /hpf Amorphous Sediment (None) /hpf Urine Bacteria (None) /hpf Urine Mucus (None) /hpf Urine Yeast (Budding) (None) /hpf 04/06/17 Range/Units 18:35 WBC (3.8-10.6) k/uL RBC (4.30-5.90) m/uL Hgb (13.0-17.5) gm/dL Hct (39.0-53.0) % Plt Count (150-450) k/uL Neutrophils # (1.3-7.7) k/uL Sodium (137-145) mmol/L Chloride (98-107) mmol/L Carbon Dioxide (22-30) mmol/L BUN (9-20) mg/dL Creatinine (0.66-1.25) mg/dL Glucose (74-99) mg/dL POC Glucose (mg/dL) 239 H (75-99) mg/dL Calcium (8.4-10.2) mg/dL Phosphorus (2.5-4.5) mg/dL Urine Protein (Negative) Urine Glucose (UA) (Negative) Urine Ketones (Negative) Ur Leukocyte Esterase (Negative) Urine WBC (0-5) /hpf Urine WBC Clumps (None) /hpf Amorphous Sediment (None) /hpf Urine Bacteria (None) /hpf Urine Mucus (None) /hpf Urine Yeast (Budding) (None) /hpf Microbiology - Last 24 Hours (Table) 04/05/17 17:55 Blood Culture - Preliminary Blood No Growth after 24 hours 04/06/17 10:40 Urine Culture - Preliminary Urine,Catheterized 04/05/17 17:55 Gram Stain - Preliminary Buttock Wound Culture - Preliminary 04/05/17 19:47 Anaerobic Culture - Preliminary Buttock Thrombosis Risk Factor Assmnt - DVT/VTE Prophylaxis DVT/VTE Prophylaxis: Contraindicated - See note - Choose All That Apply Any of the Below Risk Factors Present?: Yes Each Factor Represents 1 point: Age 41-60 years, Medical pt on bed rest Other Risk Factors: No Other congenital or acquired thrombophilia - If yes, enter type in comment: No Thrombosis Risk Factor Assessment Total Risk Factor Score: 2 Thrombosis Risk Factor Assessment Level: Low Risk Assessment and Plan (1) DKA (diabetic ketoacidoses) Narrative/Plan: Currently correcting heparin drip Status: Acute (2) Osteomyelitis Narrative/Plan: By history as well as current cultures pending Status: Acute (3) Sacral decubitus ulcer, stage III Narrative/Plan: Chronic coccygeal wound is 9 x 8 cm in size deep to the bone overlying tissue is erythematous with areas of necrosis) once Status: Acute (4) Sepsis Status: Acute
[2017-04-06 20:55] LABS: Hemoglobin A1C 12.2 % (4.2-6.1)
--- NOTE | 2017-04-06 21:07 | P.CONS ---
History of Present Illness - Reason for Consult Consult date: 04/06/17 - Chief Complaint Sepsis - History of Present Illness 56-year-old male well-known to the infectious disease service due to his many hospitalizations regarding bouts of sepsis relating to the patient's uncontrolled diabetes, urinary infections, and chronic coccyx ulceration. These also had significant difficulties with infected limbs and had the right [id number] amputation done last June. Patient now presents from his apartment weak and ill. At presentation blood sugar was greater than 1200, patient had tanya diabetic ketoacidosis. Evidence of underlying infection with urinary infection and worsening of his coccyx ulceration. The patient has had fluid resuscitation, and short period of the xiphoid was given because of his hypotension. This is now off. Was able to sit up and eat part of this light dinner tonight, denies nausea or emesis. Does relate that his oral cavity is sore and it hurts a bit to swallow. He feels poorly but better than earlier. His prior confusion also seems to be improved. Patient appears to be a complete loss as to how he has gotten so sick again. We discussed that he routinely gets admitted with diabetic ketoacidosis with significant illness and then sepsis. There is a significant mismatch between his knowledge, his disease state, and how he takes care of himself. The most recent series of events illustrates clearly his inability to manage his sugars. Review of Systems HEENT:Denies headache or acute visual change. Denies sinus discomforts. Denies neck stiffness or pain. With his oral cavity is somewhat sore, some difficulty with swallowing. Lungs: Has chronic shortness of breath due to his COPD from his many years of smoking. Has minimal cough or sputum production no hemoptysis Cardiovascular: Denies chest pain, chest wall pain, orthopnea, dyspnea on exertion, syncope Gastrointestinal:Denies nausea, vomiting, diarrhea, constipation, hematemesis, melena, hematochezia. No no significant change of bowel habit noticed. Musculoskeletal: Chronic back pain and chronic debility due to his peripheral vascular disease Skin: Denies new rash or lesions. Chronic ulceration of the coccyx and sacrum noted Neuro: Patient had difficulty with altered mental status admission that is now improving Psychiatric:Denies anxiety or depression. Endocrine: Chronic fatigue and ongoing weight loss. 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 History of Any Multi-Drug Resistant Organisms: MRSA, Other MDRO, VRE Year Discovered:: 03/18/17-MRSA; 03/18/17-VRE; 03/18/1709-[id number] MDRO Source:: Right Leg MRSA and VRE; Coccyx MDRO and MRSA Past Surgical History: Adenoidectomy, Appendectomy, Heart Catheterization, Hernia Repair, Orthopedic Surgery, Tonsillectomy Additional Past Surgical History / Comment(s): R BKA, R BKA revision to AKA, L AKA , rt arm picc line -since removed Past Anesthesia/Blood Transfusion Reactions: No Reported Reaction Additional Past Anesthesia/Blood Transfusion Reaction / Comm: Pt recently received blood. Past Psychological History: Depression Additional Psychological History / Comment(s): Pt is back home residing [facility]. He is in a wheelchair and transfers himself. He does not drive. He uses the bus. Smoking Status: Current every day smoker Past Alcohol Use History: None Reported Additional Past Alcohol Use History / Comment(s): STARTED SMOKING AT AGE 12 1/2 PPD. currently smoking 1 ppd PT STATED HE STARTED USING HEROIN AT AGE 29 AND QUIT AT AGE 47. Past Drug Use History: Heroin Additional Drug Use History / Comment(s): PT STATED HE QUIT HEROIN AT AGE 47. Pt is on methadone. - Past Family History Mother Family Medical History: Cancer Additional Family Medical History / Comment(s): Mother of brain cancer mets at the age of 68 yrs. Father Family Medical History: Cancer, Coronary Artery Disease (CAD) Additional Family Medical History / Comment(s): Father of throat cancer at the age of 70yrs. Medications and Allergies Home Medications and Allergies Comment(s): Current Medications Aspirin (Aspirin) 81 mg PO DAILY [facility] Last Admin: 04/06/17 10:08 Dose: 81 mg Atorvastatin Calcium (Lipitor) 40 mg PO HS [facility] Last Admin: 04/06/17 20:13 Dose: 40 mg Calcium Carbonate/Glycine (Tums) 500 mg PO TID PRN PRN Reason: Heartburn Carvedilol (Coreg) 6.25 mg PO BID-W/MEALS [facility] Last Admin: 04/06/17 18:21 Dose: Not Given Collagenase (Santyl) 1 applic TOPICAL DAILY [facility] Last Admin: 04/06/17 10:40 Dose: 1 applic Doxycycline Monohydrate (Vibramycin) 100 mg PO Q12HR [facility] Last Admin: 04/06/17 20:13 Dose: 100 mg Duloxetine HCl (Cymbalta) 30 mg PO BID [facility] Last Admin: 04/06/17 20:14 Dose: 30 mg Gabapentin (Neurontin) 300 mg PO TID [facility] Last Admin: 04/06/17 20:14 Dose: 300 mg Heparin Sodium (Porcine) (Heparin) 5,000 unit SQ Q8HR [facility] Last Admin: 04/06/17 18:21 Dose: 5,000 unit Potassium Chloride/Dextrose/Sod Cl (D5%-1/2ns-Kcl 20 Meq/L Iv Solution) 1,000 mls @ 50 mls/hr IV .Q20H [facility] Last Admin: 04/06/17 20:11 Dose: 50 mls/hr Norepinephrine Bitartrate (Levophed-0.9% Nacl 4 Mg/250ml Pmx) 4 mg in 250 mls @ 0 mls/hr IV .Q0M [facility]; Titrate PRN Reason: Protocol Last Titration: 04/06/17 15:00 Dose: 0 mcg/min, 0 mls/hr Daptomycin 250 mg/ Sodium (Chloride) 50 mls @ 100 mls/hr IV Q24H [facility] Last Admin: 04/06/17 13:30 Dose: 100 mls/hr Micafungin Sodium 100 mg/ (Sodium Chloride) 100 mls @ 100 mls/hr IVPB DAILY [facility] Last Admin: 04/06/17 10:40 Dose: 100 mls/hr Levofloxacin 750 mg/ IV (Solution) 150 mls @ 100 mls/hr IVPB Q48H [facility] Sodium Phosphate 10 mmol/ (Sodium Chloride) 253.3333 mls @ 125 mls/hr IVPB Q2H [facility] Stop: 04/06/17 21:59 Last Admin: 04/06/17 20:13 Dose: 125 mls/hr Insulin Glargine (Lantus) 38 unit SQ HS [facility] Insulin Human Lispro (Humalog) 8 unit SQ AC-TID [facility] Last Admin: 04/06/17 18:35 Dose: 8 unit Insulin Human Lispro (Humalog) 0 unit SQ [id number] [facility] PRN Reason: Protocol Last Admin: 04/06/17 18:36 Dose: 3 unit Losartan Potassium (Cozaar) 25 mg PO DAILY [facility] Last Admin: 04/06/17 10:08 Dose: Not Given Methadone HCl (Dolophine) 10 mg PO Q8HR [facility] Last Admin: 04/06/17 18:24 Dose: 10 mg Miscellaneous Information (Phosphorus Per Protocol) 1 each MISCELLANE DAILY PRN ; Protocol PRN Reason: Per Protocol Miscellaneous Information (Potassium Per Protocol) 1 each MISCELLANE DAILY PRN ; Protocol PRN Reason: Per Protocol Multivitamins (Theragran) 1 each PO DAILY@1200 [facility] Last Admin: 04/06/17 13:16 Dose: Not Given Naloxone HCl (Narcan) 0.2 mg IV Q2M PRN PRN Reason: Opioid Reversal Pantoprazole Sodium (Protonix) 40 mg IVP DAILY [facility] Last Admin: 04/06/17 10:10 Dose: 40 mg Quetiapine Fumarate (Seroquel) 200 mg PO [facility] Last Admin: 04/06/17 20:14 Dose: 200 mg Home Medications Medication Instructions Recorded Confirmed Type Carvedilol [Coreg] 6.25 mg PO BID 06/13/14 04/06/17 History Gabapentin [Neurontin] 300 mg PO TID 01/28/16 04/05/17 History Omeprazole 20 mg PO DAILY 06/12/16 04/06/17 History Multivitamins, Thera [Multivitamin 1 tab PO DAILY 10/13/16 04/05/17 History (formulary)] QUEtiapine [SEROquel] 200 mg PO 10/13/16 04/06/17 History Insulin Detemir [Levemir] 38 unit SQ HS 01/14/17 04/05/17 History Atorvastatin [Lipitor] 40 mg PO HS 02/04/17 04/06/17 History Collagenase [Santyl] 1 applic TOPICAL DAILY 04/05/17 04/06/17 History DULoxetine HCL [Cymbalta] 30 mg PO BID 04/06/17 04/06/17 History INSULIN LISPRO (humaLOG) [HumaLOG] 8 units SQ AC-TID 04/06/17 04/06/17 History Insulin Glargine [Lantus] 38 unit SQ DAILY 04/06/17 04/06/17 History Losartan Potassium [Losartan 25 mg PO DAILY 04/06/17 04/06/17 History Potassium] hydrALAZINE HCL [Apresoline] 50 mg PO TID 04/06/17 04/06/17 History Allergies Allergy/AdvReac Type Severity Reaction Status Date / Time piperacillin [From Zosyn] Allergy Severe Dyspnea Verified 04/01/17 11:05 tazobactam [From Zosyn] Allergy Severe Dyspnea Verified 04/01/17 11:05 tramadol Allergy Unknown Verified 04/06/17 08:43 fentanyl AdvReac Lightheaded Verified 04/06/17 08:43 ketorolac tromethamine AdvReac Nausea Verified 04/01/17 11:05 [From Toradol] Physical Exam Vitals: Vital Signs Temp Pulse Resp BP Pulse Ox 04/06/17 18:00 81 30 H 115/69 99 04/06/17 17:30 82 23 104/69 98 04/06/17 17:00 84 18 103/67 98 04/06/17 16:30 80 32 H 78/56 98 04/06/17 16:15 81 15 90/60 99 04/06/17 16:00 98.1 F 83 33 H 97/60 99 04/06/17 15:45 81 27 H 105/65 100 04/06/17 15:30 81 17 81/58 100 04/06/17 15:15 82 37 H 161/78 99 04/06/17 15:00 85 67 H 96/59 100 04/06/17 14:45 81 44 H 95/62 97 04/06/17 14:30 82 19 90/62 98 04/06/17 14:15 82 85 H 80/68 97 04/06/17 14:00 84 37 H 118/80 99 04/06/17 13:45 83 48 H 112/75 98 04/06/17 13:30 86 75 H 116/85 100 04/06/17 13:15 88 28 H 108/71 100 04/06/17 13:00 86 34 H 110/66 100 04/06/17 12:45 92 33 H 115/79 100 04/06/17 12:30 92 26 H 103/72 100 04/06/17 12:15 89 18 82/66 100 04/06/17 12:00 97.6 F 90 25 H 101/71 100 04/06/17 11:45 88 49 H 86/63 100 04/06/17 11:30 88 35 H 97/66 100 04/06/17 11:15 90 25 H 90/66 100 04/06/17 11:00 90 51 H 75/56 97 04/06/17 10:45 92 35 H 120/75 96 04/06/17 10:30 94 61 H 95/67 100 04/06/17 10:15 90 56 H 86/68 100 04/06/17 10:00 93 49 H 105/67 100 04/06/17 09:45 89 55 H 87/61 100 04/06/17 09:30 91 61 H 96/67 100 04/06/17 09:15 92 40 H 108/70 100 04/06/17 09:00 94 47 H 96/67 100 04/06/17 08:45 91 52 H 76/57 99 04/06/17 08:30 91 51 H 79/58 100 04/06/17 08:20 22 04/06/17 08:15 90 46 H 79/61 100 04/06/17 08:00 98.8 F 89 44 H 84/60 100 04/06/17 07:45 79 24 68/50 100 04/06/17 07:30 80 29 H 63/53 100 04/06/17 07:15 79 15 64/47 98 04/06/17 07:00 78 16 68/39 98 04/06/17 06:30 77 20 73/40 100 04/06/17 06:15 80 24 77/44 100 04/06/17 06:00 80 20 77/44 100 04/06/17 05:30 80 22 90/47 100 04/06/17 05:00 79 21 78/45 100 04/06/17 04:30 78 20 84/49 100 04/06/17 04:00 96.1 F L 78 22 90/49 100 04/06/17 03:30 77 16 129/56 100 04/06/17 03:00 77 20 112/56 100 04/06/17 02:30 77 22 105/56 100 04/06/17 02:00 74 14 107/54 91 L 04/06/17 01:30 75 20 91/49 100 04/06/17 01:00 74 19 81/48 100 04/06/17 00:30 96.7 F L 71 22 77/49 100 04/06/17 00:00 75 14 98/64 100 04/05/17 23:38 76 17 103/62 100 04/05/17 23:30 76 15 103/62 93 L 04/05/17 23:00 75 15 122/71 92 L 04/05/17 22:30 94.7 F L 77 20 72/51 99 04/05/17 22:00 79 15 119/82 93 L 04/05/17 21:30 75 16 97/71 97 04/05/17 21:00 92.5 F L 74 14 98/73 90 L Intake and Output 04/06/17 04/06/17 04/06/17 06:59 14:59 22:59 Intake Total 7663.667 0558.643 2056.919 Output Total 625 1700 550 Balance 7238.267 7693.643 1506.919 Intake: IV 1600 1600 Sodium Chloride 0.9% 1, 1600 1600 000 ml @ 200 mls/hr IV . Q5H [facility] Rx#:[id number] Intake, IV Titration 78.301 2822.643 2056.919 Amount D5-0.45% NaCl with KCl 150 100 20Meq/l 1,000 ml @ 50 mls /hr IV .Q20H [facility] Rx#: [id number] Dextrose 5%-0.45% NaCl 1, 600 300 000 ml @ 150 mls/hr IV . Q6H44M [facility] with Potassium Chloride 20 meq Rx#: [id number] Insulin Regular 100 unit 78.301 88.268 12.732 In Sodium Chloride 0.9% 100 ml @ 0.1 UNITS/KG/HR 5.36 mls/hr IV .[id number] [facility] Rx#:[id number] Levofloxacin 750Mg-D5w 100 Pmx 750 mg In Dextrose/ Water 1 150ml.bag @ 100 mls/hr IVPB Q24H [facility] Rx#: [id number] Levofloxacin 750Mg-D5w 100 Pmx 750 mg In Dextrose/ Water 1 150ml.bag @ 100 mls/hr IVPB Q48H [facility] Rx#: [id number] Magnesium Sulfate-D5w Pmx 100 1 gm In Dextrose/Water 1 100ml.bag @ 100 mls/hr IVPB Q1H [facility] Rx#: [id number] Micafungin 100 mg In 100 Sodium Chloride 0.9% 100 ml @ 100 mls/hr IVPB DAILY [facility] Rx#:[id number] Norepinephrin 4 mg-0.9% 184.375 44.187 Ns Pmx 4 mg In 250 ml @ Titrate IV .Q0M [facility] Rx#: [id number] Sodium Chloride 0.9% 2, 1500 1500 000 ml @ 999 mls/hr IV . Q2H1M [facility] Rx#:[id number] Output: Urine 625 1700 550 Other: Voiding Method Urinal Indwelling Catheter # Voids 1 Weight 42.7 kg 42.7 kg Patient Weight 04/07/17 06:59 Weight 42.7 kg This is a 56-year-old emaciated male. Sitting up at 40. Mentation is improved from earlier. HEENT: Head is atraumatic, normocephalic. Pupils equal, round. Sclerae is anicteric. Mucous membranes of the mouth are dry. Thrush is noted. Dentition is in poor order. NECK: Supple. No JVD. No lymphadenopathy. No thyromegaly. LUNGS: Coarse sounds bilaterally with poor inspiratory effort. No intercostal retractions. HEART: Regular rate and rhythm. No murmur. ABDOMEN: Soft. Bowel sounds are present. No masses. No tenderness. EXTREMITIES: Bilateral lower extremity amputations noted. Evidence of the open ulceration to the right lateral residual limb. Present 2 x 2 by 0.2 cm. NEUROLOGICAL: Patient is now awake and alert. Is able to state my name He does not remember yesterday well. The coccyx ulceration measures at 8 x7 x 0.5 cm. with purulence and necrosis especially at the 3 o'clock position there is also a small ulceration of 2 x 2 x 0.2 cm on the right upper thigh posterior Results CBC & Chem 7: 04/06/17 04:09 04/06/17 15:32 Labs: Abnormal Lab Results - Last 24 Hours (Table) 04/05/17 04/05/17 04/05/17 Range/Units 20:25 22:11 22:46 WBC (3.8-10.6) k/uL RBC (4.30-5.90) m/uL Hgb (13.0-17.5) gm/dL Hct (39.0-53.0) % Plt Count (150-450) k/uL Neutrophils # (1.3-7.7) k/uL Sodium (137-145) mmol/L Chloride (98-107) mmol/L Carbon Dioxide (22-30) mmol/L BUN (9-20) mg/dL Creatinine (0.66-1.25) mg/dL Glucose 936 H* (74-99) mg/dL POC Glucose (mg/dL) >600 H (75-99) mg/dL Calcium (8.4-10.2) mg/dL Phosphorus (2.5-4.5) mg/dL Urine Protein Trace H (Negative) Urine Glucose (UA) 4+ H (Negative) Urine Ketones 2+ H (Negative) Ur Leukocyte Esterase Moderate H (Negative) Urine WBC 71 H (0-5) /hpf Urine WBC Clumps Many H (None) /hpf Amorphous Sediment Occasional H (None) /hpf Urine Bacteria Rare H (None) /hpf Urine Mucus Rare H (None) /hpf Urine Yeast (Budding) Few H (None) /hpf 04/05/17 04/06/17 04/06/17 Range/Units 23:33 01:09 01:18 WBC (3.8-10.6) k/uL RBC (4.30-5.90) m/uL Hgb (13.0-17.5) gm/dL Hct (39.0-53.0) % Plt Count (150-450) k/uL Neutrophils # (1.3-7.7) k/uL Sodium 126 L (137-145) mmol/L Chloride 95 L (98-107) mmol/L Carbon Dioxide 10 L* (22-30) mmol/L BUN 70 H (9-20) mg/dL Creatinine 1.30 H (0.66-1.25) mg/dL Glucose 799 H* 678 H* (74-99) mg/dL POC Glucose (mg/dL) >600 H (75-99) mg/dL Calcium (8.4-10.2) mg/dL Phosphorus (2.5-4.5) mg/dL Urine Protein (Negative) Urine Glucose (UA) (Negative) Urine Ketones (Negative) Ur Leukocyte Esterase (Negative) Urine WBC (0-5) /hpf Urine WBC Clumps (None) /hpf Amorphous Sediment (None) /hpf Urine Bacteria (None) /hpf Urine Mucus (None) /hpf Urine Yeast (Budding) (None) /hpf 04/06/17 04/06/17 04/06/17 Range/Units 03:27 04:09 04:09 WBC 12.6 H (3.8-10.6) k/uL RBC 2.96 L (4.30-5.90) m/uL Hgb 8.4 L (13.0-17.5) gm/dL Hct 26.8 L (39.0-53.0) % Plt Count 463 H (150-450) k/uL Neutrophils # 10.9 H (1.3-7.7) k/uL Sodium 132 L (137-145) mmol/L Chloride (98-107) mmol/L Carbon Dioxide 18 L (22-30) mmol/L BUN 64 H (9-20) mg/dL Creatinine (0.66-1.25) mg/dL Glucose 502 H* (74-99) mg/dL POC Glucose (mg/dL) 591 H (75-99) mg/dL Calcium 8.1 L (8.4-10.2) mg/dL Phosphorus (2.5-4.5) mg/dL Urine Protein (Negative) Urine Glucose (UA) (Negative) Urine Ketones (Negative) Ur Leukocyte Esterase (Negative) Urine WBC (0-5) /hpf Urine WBC Clumps (None) /hpf Amorphous Sediment (None) /hpf Urine Bacteria (None) /hpf Urine Mucus (None) /hpf Urine Yeast (Budding) (None) /hpf 04/06/17 04/06/17 04/06/17 Range/Units 04:16 05:05 06:11 WBC (3.8-10.6) k/uL RBC (4.30-5.90) m/uL Hgb (13.0-17.5) gm/dL Hct (39.0-53.0) % Plt Count (150-450) k/uL Neutrophils # (1.3-7.7) k/uL Sodium (137-145) mmol/L Chloride (98-107) mmol/L Carbon Dioxide (22-30) mmol/L BUN (9-20) mg/dL Creatinine (0.66-1.25) mg/dL Glucose (74-99) mg/dL POC Glucose (mg/dL) 494 H 486 H 369 H (75-99) mg/dL Calcium (8.4-10.2) mg/dL Phosphorus (2.5-4.5) mg/dL Urine Protein (Negative) Urine Glucose (UA) (Negative) Urine Ketones (Negative) Ur Leukocyte Esterase (Negative) Urine WBC (0-5) /hpf Urine WBC Clumps (None) /hpf Amorphous Sediment (None) /hpf Urine Bacteria (None) /hpf Urine Mucus (None) /hpf Urine Yeast (Budding) (None) /hpf 04/06/17 04/06/17 04/06/17 Range/Units 07:16 09:14 10:26 WBC (3.8-10.6) k/uL RBC (4.30-5.90) m/uL Hgb (13.0-17.5) gm/dL Hct (39.0-53.0) % Plt Count (150-450) k/uL Neutrophils # (1.3-7.7) k/uL Sodium (137-145) mmol/L Chloride (98-107) mmol/L Carbon Dioxide (22-30) mmol/L BUN (9-20) mg/dL Creatinine (0.66-1.25) mg/dL Glucose (74-99) mg/dL POC Glucose (mg/dL) 359 H 266 H 189 H (75-99) mg/dL Calcium (8.4-10.2) mg/dL Phosphorus (2.5-4.5) mg/dL Urine Protein (Negative) Urine Glucose (UA) (Negative) Urine Ketones (Negative) Ur Leukocyte Esterase (Negative) Urine WBC (0-5) /hpf Urine WBC Clumps (None) /hpf Amorphous Sediment (None) /hpf Urine Bacteria (None) /hpf Urine Mucus (None) /hpf Urine Yeast (Budding) (None) /hpf 04/06/17 04/06/17 04/06/17 Range/Units 11:37 13:13 15:03 WBC (3.8-10.6) k/uL RBC (4.30-5.90) m/uL Hgb (13.0-17.5) gm/dL Hct (39.0-53.0) % Plt Count (150-450) k/uL Neutrophils # (1.3-7.7) k/uL Sodium (137-145) mmol/L Chloride (98-107) mmol/L Carbon Dioxide (22-30) mmol/L BUN (9-20) mg/dL Creatinine (0.66-1.25) mg/dL Glucose (74-99) mg/dL POC Glucose (mg/dL) 122 H 144 H 60 L (75-99) mg/dL Calcium (8.4-10.2) mg/dL Phosphorus (2.5-4.5) mg/dL Urine Protein (Negative) Urine Glucose (UA) (Negative) Urine Ketones (Negative) Ur Leukocyte Esterase (Negative) Urine WBC (0-5) /hpf Urine WBC Clumps (None) /hpf Amorphous Sediment (None) /hpf Urine Bacteria (None) /hpf Urine Mucus (None) /hpf Urine Yeast (Budding) (None) /hpf 04/06/17 04/06/17 04/06/17 Range/Units 15:31 15:32 15:32 WBC (3.8-10.6) k/uL RBC (4.30-5.90) m/uL Hgb (13.0-17.5) gm/dL Hct (39.0-53.0) % Plt Count (150-450) k/uL Neutrophils # (1.3-7.7) k/uL Sodium (137-145) mmol/L Chloride 115 H (98-107) mmol/L Carbon Dioxide 17 L (22-30) mmol/L BUN 45 H (9-20) mg/dL Creatinine (0.66-1.25) mg/dL Glucose 59 L (74-99) mg/dL POC Glucose (mg/dL) >600 H 73 L (75-99) mg/dL Calcium (8.4-10.2) mg/dL Phosphorus 1.8 L (2.5-4.5) mg/dL Urine Protein (Negative) Urine Glucose (UA) (Negative) Urine Ketones (Negative) Ur Leukocyte Esterase (Negative) Urine WBC (0-5) /hpf Urine WBC Clumps (None) /hpf Amorphous Sediment (None) /hpf Urine Bacteria (None) /hpf Urine Mucus (None) /hpf Urine Yeast (Budding) (None) /hpf 04/06/17 Range/Units 18:35 WBC (3.8-10.6) k/uL RBC (4.30-5.90) m/uL Hgb (13.0-17.5) gm/dL Hct (39.0-53.0) % Plt Count (150-450) k/uL Neutrophils # (1.3-7.7) k/uL Sodium (137-145) mmol/L Chloride (98-107) mmol/L Carbon Dioxide (22-30) mmol/L BUN (9-20) mg/dL Creatinine (0.66-1.25) mg/dL Glucose (74-99) mg/dL POC Glucose (mg/dL) 239 H (75-99) mg/dL Calcium (8.4-10.2) mg/dL Phosphorus (2.5-4.5) mg/dL Urine Protein (Negative) Urine Glucose (UA) (Negative) Urine Ketones (Negative) Ur Leukocyte Esterase (Negative) Urine WBC (0-5) /hpf Urine WBC Clumps (None) /hpf Amorphous Sediment (None) /hpf Urine Bacteria (None) /hpf Urine Mucus (None) /hpf Urine Yeast (Budding) (None) /hpf Microbiology - Last 24 Hours (Table) 04/05/17 17:55 Blood Culture - Preliminary Blood No Growth after 24 hours 04/06/17 10:40 Urine Culture - Preliminary Urine,Catheterized 04/05/17 17:55 Gram Stain - Preliminary Buttock Wound Culture - Preliminary 04/05/17 19:47 Anaerobic Culture - Preliminary Buttock Assessment and Plan (1) DKA (diabetic ketoacidoses) Status: Acute (2) Sepsis Narrative/Plan: 56-year-old male presents to emergency center with altered mental status feeling ill. With evidence of recurrence of his ketotic hyperglycemia. Initial blood sugar 1359, osmolality 359, venous pH 7.11. Patient is now had some improvement after fluid resuscitation, improvement of blood sugar, and some vasopressor support. The left arm is marked in curtain stretcher was difficulty with extravasation of the vasopressor but no ulceration is seen at this time. Patient's mentation is improving. Is having a discussion ensues as far as his current course. He believes he is doing things well at home. However his illness proves that he is not taking care of himself. There is distinct mismatch between how he cares for himself, what he eats, and who takes care of his insulin, all of which result in the current difficulties. As his blood sugars increase he then developed secondary infections. Appears to have a urinary tract infection at this time. Pulmonary has seen and there is worry about pneumonia but his pulmonary status is about his baseline. The coccyx ulceration is with a large area of necrosis that will require more extensive debridement when he is healthier. The cultures are reviewed There is evidence of a multidrug resistant pseudomonas aeruginosa that will not be treatable at this time. The other pathogens that include VRE and MRSA will be treated with daptomycin. Patient's thrush will be treated with the micafungin that has been started Repeat cultures are in process. The patient's prognosis is extremely poor. Status: Acute (3) Noncompliance Status: Acute
[2017-04-06] MEDS: HYDROcodone/APAP 7.5-325MG 1 EACH TAB PO PRN (22:22)
[2017-04-06 22:26] LABS: Glucose,Whole Blood 354 mg/dL (75-99)
[2017-04-06] MEDS: SODIUM HYPOCHLORITE 0.5% 480 ML BOT MISCELLANE SCH (22:26)
[2017-04-06] MEDS: INSULIN GLARGINE 100 UNIT/ML 10 ML VIAL SQ SCH (22:30)
[2017-04-07] MEDS: HEPARIN SODIUM,PORCINE 5,000 UNIT/ML 1 ML VIAL SQ SCH ×3 (00:48→16:22)
[2017-04-07] MEDS: METHADONE 10 MG TAB PO SCH ×3 (01:03→16:22)
[2017-04-07] MEDS: INSULIN LISPRO (humaLOG) 300 UNIT/3 ML VIAL SQ SCH ×8 (02:35→21:22)
[2017-04-07 02:38] LABS: Glucose,Whole Blood 294 mg/dL (75-99)
[2017-04-07 04:57] LABS: Basophils % (A) 0 %; CH 28.7; CHCM 31.2; Eosinophils # (A) 0.1 k/uL (0-0.7); Eosinophils % (A) 1 %; HCT 25.9 % (39.0-53.0); HDW 3.38; Hypochromasia Moderate; Luc # (Auto) 0.08; Luc % (Auto) 1; Lymphocytes # (A) 1.8 k/uL (1.0-4.8); Lymphocytes % (A) 14 %; MCH 28.4 pg (25.0-35.0); MCHC 30.7 g/dL (31.0-37.0); MCV 92.4 fL (80.0-100.0); Mean Platelet Volume 7.1; Monocytes # (A) 0.3 k/uL (0-1.0); Monocytes % (A) 2 %; Neutrophils # (A) 10.4 k/uL (1.3-7.7); Neutrophils % (A) 82 %; RDW 14.9 % (11.5-15.5); WBC 12.7 k/uL (3.8-10.6); WBC (Perox) 13.06
[2017-04-07 05:17] LABS: Anion Gap 5 mmol/L; Blood Urea Nitrogen 27 mg/dL (9-20); Calcium 7.9 mg/dL (8.4-10.2); Carbon Dioxide 14 mmol/L (22-30); Chloride 119 mmol/L (98-107); Glucose 225 mg/dL (74-99); Magnesium 1.9 mg/dL (1.6-2.3); Non-African American GFR(MDRD) >60 (>60 ml/min/1.73 sqM); Phosphorous 2.3 mg/dL (2.5-4.5); Potassium 4.1 mmol/L (3.5-5.1); Sodium 138 mmol/L (137-145)
[2017-04-07] MEDS ORDERED: Magnesium Replacement Protocol 1 EACH MISC MISCELLANE PRN (05:37)
[2017-04-07] MEDS ORDERED: SODIUM PHOSPHATE 10 MMOL in SODIUM CHLORIDE 0.9% 250 ML IVPB ONE ×2 (05:38→20:00)
[2017-04-07] MEDS ORDERED: Phosphorus Replacement Protoco 1 EACH MISC MISCELLANE PRN ×2 (05:38→18:04)
[2017-04-07] MEDS: MAGNESIUM SULFATE-D5W PMX 1 GM in DEXTROSE/WATER 1 100ML.BAG IVPB SCH ×2 (06:03→07:10)
--- NOTE | 2017-04-07 07:32 | XR ---
EXAMINATION TYPE: XR chest 1V DATE OF EXAM: 04/07/2017 HISTORY: cough. REFERENCE: Previous study dated 04/06/2017. FINDINGS: The lungs are overinflated. There is increased opacity at the right lung base. This has wor sened slightly. The left lung is clear. Pleural spaces are clear. The heart is not enlarged. IMPRESSION: WORSENING CONSOLIDATION, RIGHT LUNG BASE.
[2017-04-07 07:45] LABS: Glucose,Whole Blood 192 mg/dL (75-99)
[2017-04-07] MEDS: PANTOPRAZOLE 40 MG/10 ML VIAL IVP SCH (08:35)
[2017-04-07] MEDS: ASPIRIN 81 MG CHEW PO SCH (08:35)
[2017-04-07] MEDS: DULoxetine HCL 30 MG CAPSULE.DR PO SCH ×2 (08:36→21:21)
[2017-04-07] MEDS: GABAPENTIN 300 MG CAP PO SCH ×3 (08:36→21:22)
--- NOTE | 2017-04-07 09:14 | P.PN ---
Subjective 76-year-old male patient, poorly controlled diabetes mellitus, with known history of osteomyelitis and a stage IV sacral decub ulceration along with history of Vascular disease and previous history of diabetic ulcer status post bilateral AKA, and a previous history of opiate and heroin user, came into the emergency department with DKA and sepsis. The patient was hypothermic. He was in acute DKA. He was in anion gap metabolic acidosis and his blood sugar was about thousand. He was hypothermic with a temperature 92.3 axillary and 92.5 rectal. Note that the patient has been followed up at the wound center by Dr. Becerra. He was in the wound center on 04/01/2017 and he was looking sick and hypotensive and lethargic and septic. He was given IV fluids and he was discharged. Based on the records, the patient's wound appears to be significantly worse and appropriate debridement was done. Based on the most recent cultures from the wound, the cultures on 03/18/2017 showed Karina albicans, VRE and Clostridium. He also is known to have MRSA, pseudomonas aeruginosa that has been multidrug resistant and Enterobacter. Since his admission to the ICU, the patient was aggressively resuscitated IV fluids and the patient received a total of 3 L immediately and currently he is on 0.9 normal saline at the rate of 200 mL an hour. He was on an insulin drip and the 0.9 saline will be switched to D5 normal saline with 20 mg of KCl as the patient's most recent blood sugar is down to 266. The insulin drip is running at 14 units an hour. The most recent electrolytes show a bicarb level of 18, anion gap of 11, a creatinine of 1.2 with a BMI of 16, white cell count is at 12.6 and a hemoglobin of 8.4. The sacral wound is large, 9 x 8 cm in size , grossly necrotic material around the wound with central erythema and purulent discharge covering the lower portion of the base. In addition, the patient remained hypotensive and currently is on 10 mics of levo fed. In terms of antibiotic coverage, the patient was given a dose of vancomycin. The lactic acid level is at 1.2. Urinary may be infected knowing that there are clumps of white cells and occasional bacteria seen. There are also some few budding yeast. The Castañeda was inserted and cultures were also sent.His chest x-ray shows an early right lower lobe pulmonary infiltrate. There is also no other densities in the right upper lobe. A previous CAT scan of the chest that was obtained in 2016 had shown multiple cystic lesions scattered throughout the lung chambers which raises the possibility of emphysema versus use a follicular normal. There is also a previously described left apical lesion measuring 3.8 cm in size. On 04/07/2017, the patient is being seen in follow-up. The patient is in intensive care unit. Hemodynamically he improved significantly. At one point he was taken off the norepinephrine infusion however later on he became hypotensive again he had to be restarted back on norepinephrine. His been off the pressors since 7:00 this morning. He is producing adequate amount of urine output. He is much more awake and alert compared to yesterday. His DKA has recovered. The patient is currently off the insulin drip and he's been switched to Lantus insulin along with Humalog sliding scale coverage. Most recent blood sugar is at 192. As far as electrolytes, he has a bicarb level of 14 with an anion gap of less than 10. The patient meanwhile was covered with broad-spectrum antibiotics. Currently is on a combination of daptomycin Levaquin and micafungin. The wound is showing gram-negative bacillus. The urine cultures still pending. The patient was seen by infectious disease. The patient is receiving local wound care. The chest x-ray from today shows some questionable infiltration of the right lung. Noted the patient is extensive emphysema with cystic bullous changes scattered throughout the lung chambers bilaterally as evident on previous CAT scan of the chest. The electrodes have been all replaced. He is tolerating diet. He is on a D5 half-normal infusion the rate of 50 mL an hour. Objective - Vital Signs Vital signs: Vital Signs Temp 98.6 F 04/07/17 04:00 Pulse 81 04/07/17 07:00 Resp 20 04/07/17 07:00 BP 109/73 04/07/17 07:00 Pulse Ox 99 04/07/17 07:00 Intake & Output 04/06/17 04/07/17 04/07/17 18:59 06:59 18:59 Intake Total 6479.562 1198.875 150 Output Total 2250 1215 75 Balance 4229.562 -16.125 75 Weight 42.7 kg 44.217 kg Intake: IV 1600 Sodium Chloride 0.9% 1, 1600 000 ml @ 200 mls/hr IV . Q5H [facility] Rx#:[id number] Intake, IV Titration 4879.562 1198.875 150 Amount D5-0.45% NaCl with KCl 250 600 50 20Meq/l 1,000 ml @ 50 mls /hr IV .Q20H [facility] Rx#: [id number] Dextrose 5%-0.45% NaCl 1, 900 000 ml @ 150 mls/hr IV . Q6H44M [facility] with Potassium Chloride 20 meq Rx#: [id number] Insulin Regular 100 unit 101.000 In Sodium Chloride 0.9% 100 ml @ 0.1 UNITS/KG/HR 5.36 mls/hr IV .[id number] [facility] Rx#:[id number] Levofloxacin 750Mg-D5w 100 Pmx 750 mg In Dextrose/ Water 1 150ml.bag @ 100 mls/hr IVPB Q24H [facility] Rx#: [id number] Levofloxacin 750Mg-D5w 100 Pmx 750 mg In Dextrose/ Water 1 150ml.bag @ 100 mls/hr IVPB Q48H [facility] Rx#: [id number] Magnesium Sulfate-D5w Pmx 100 100 1 gm In Dextrose/Water 1 100ml.bag @ 100 mls/hr IVPB Q1H [facility] Rx#: [id number] Micafungin 100 mg In 100 Sodium Chloride 0.9% 100 ml @ 100 mls/hr IVPB DAILY [facility] Rx#:[id number] Norepinephrin 4 mg-0.9% 228.562 98.875 Ns Pmx 4 mg In 250 ml @ Titrate IV .Q0M [facility] Rx#: [id number] Sodium Chloride 0.9% 2, 3000 000 ml @ 999 mls/hr IV . Q2H1M [facility] Rx#:[id number] Sodium Phosphate 10 mmol 500 In Sodium Chloride 0.9% 250 ml @ 125 mls/hr IVPB Q2H [facility] Rx#:[id number] Output: Urine 2250 1215 75 Other: Voiding Method Indwelling Catheter Indwelling Catheter # Voids 1 - Exam Very thin, cachectic, emaciated, sick looking, malnourished patient who looks way above his age. His resting comfortably in bed. He is arousable. He will follow commands and answer simple questions.Head exam was generally normal. There was no scleral icterus or corneal arcus. Mucous membranes were moist. Eyes are sunken and mucous membranes are dry. He has very poor dentition and multiple missing teeth and dental caries. No thrush. No neck stiffness. No adenopathy. Lungs are diminished bilaterally along with some scattered rhonchi and scattered expiratory wheezes. Heart sounds are regular, positive S1-S2 and there is a faint grade 2 systolic ejection murmur heard throughout the precordium.Abdominal exam revealed normal bowel sounds. The abdomen was soft, non-tender, and without masses, organomegaly, or appreciable enlargement of the abdominal aorta. Extremities reveal above-knee amputation bilaterally, upper extremities are within normal limits. Coccygeal wound is 9 x 8 cm in size, deep to the bone, overlying tissue is quite erythematous and areas of necrosis with purulent material discharged. - Labs CBC & Chem 7: 04/07/17 04:27 04/07/17 04:27 Labs: Abnormal Lab Results - Last 24 Hours (Table) 04/06/17 04/06/17 04/06/17 Range/Units 09:14 10:26 11:37 WBC (3.8-10.6) k/uL RBC (4.30-5.90) m/uL Hgb (13.0-17.5) gm/dL Hct (39.0-53.0) % MCHC (31.0-37.0) g/dL Neutrophils # (1.3-7.7) k/uL Chloride (98-107) mmol/L Carbon Dioxide (22-30) mmol/L BUN (9-20) mg/dL Glucose (74-99) mg/dL POC Glucose (mg/dL) 266 H 189 H 122 H (75-99) mg/dL Hemoglobin A1c (4.2-6.1) % Calcium (8.4-10.2) mg/dL Phosphorus (2.5-4.5) mg/dL 04/06/17 04/06/17 04/06/17 Range/Units 13:13 15:03 15:31 WBC (3.8-10.6) k/uL RBC (4.30-5.90) m/uL Hgb (13.0-17.5) gm/dL Hct (39.0-53.0) % MCHC (31.0-37.0) g/dL Neutrophils # (1.3-7.7) k/uL Chloride (98-107) mmol/L Carbon Dioxide (22-30) mmol/L BUN (9-20) mg/dL Glucose (74-99) mg/dL POC Glucose (mg/dL) 144 H 60 L >600 H (75-99) mg/dL Hemoglobin A1c (4.2-6.1) % Calcium (8.4-10.2) mg/dL Phosphorus (2.5-4.5) mg/dL 04/06/17 04/06/17 04/06/17 Range/Units 15:32 15:32 16:22 WBC (3.8-10.6) k/uL RBC (4.30-5.90) m/uL Hgb (13.0-17.5) gm/dL Hct (39.0-53.0) % MCHC (31.0-37.0) g/dL Neutrophils # (1.3-7.7) k/uL Chloride 115 H (98-107) mmol/L Carbon Dioxide 17 L (22-30) mmol/L BUN 45 H (9-20) mg/dL Glucose 59 L (74-99) mg/dL POC Glucose (mg/dL) 73 L (75-99) mg/dL Hemoglobin A1c 12.2 H (4.2-6.1) % Calcium (8.4-10.2) mg/dL Phosphorus 1.8 L (2.5-4.5) mg/dL 04/06/17 04/06/17 04/07/17 Range/Units 18:35 22:25 02:35 WBC (3.8-10.6) k/uL RBC (4.30-5.90) m/uL Hgb (13.0-17.5) gm/dL Hct (39.0-53.0) % MCHC (31.0-37.0) g/dL Neutrophils # (1.3-7.7) k/uL Chloride (98-107) mmol/L Carbon Dioxide (22-30) mmol/L BUN (9-20) mg/dL Glucose (74-99) mg/dL POC Glucose (mg/dL) 239 H 354 H 294 H (75-99) mg/dL Hemoglobin A1c (4.2-6.1) % Calcium (8.4-10.2) mg/dL Phosphorus (2.5-4.5) mg/dL 04/07/17 04/07/17 04/07/17 Range/Units 04:27 04:27 07:43 WBC 12.7 H (3.8-10.6) k/uL RBC 2.80 L (4.30-5.90) m/uL Hgb 8.0 L (13.0-17.5) gm/dL Hct 25.9 L (39.0-53.0) % MCHC 30.7 L (31.0-37.0) g/dL Neutrophils # 10.4 H (1.3-7.7) k/uL Chloride 119 H (98-107) mmol/L Carbon Dioxide 14 L (22-30) mmol/L BUN 27 H (9-20) mg/dL Glucose 225 H (74-99) mg/dL POC Glucose (mg/dL) 192 H (75-99) mg/dL Hemoglobin A1c (4.2-6.1) % Calcium 7.9 L (8.4-10.2) mg/dL Phosphorus 2.3 L (2.5-4.5) mg/dL Microbiology - Last 24 Hours (Table) 04/05/17 17:55 Gram Stain - Preliminary Buttock Wound Culture - Preliminary Gram Neg Bacilli 04/05/17 17:55 Blood Culture - Preliminary Blood No Growth after 24 hours 04/06/17 10:40 Urine Culture - Preliminary Urine,Catheterized Assessment and Plan Plan: Assessment 1 DKA, essentially recovered and anion gap has closed and the bicarb level is still low at 14. 2 severe anion gap metabolic acidosis secondary to DKA, recovered and the patient has a component of non-anion gap metabolic acidosis this point 3 decubitus ulcer of the sacral region, stage IV. Patient has had previous cultures and debridement and the most recent cultures indicating possibility of a karina, VRE, Pseudomonas and MRSA infection 4 sepsis with secondary hypotension, failed to respond to fluid resuscitation and pressors 5 suspected urine checked infection, there are budding yeasts within the urine analysis tomorrow rule out fungal urinary tract infection 6 hypothermia, partly related to sepsis, recovered 7 severe peripheral vascular disease with above-knee petition bilaterally 8. Hepatitis C viral infection of the liver 9 COPD with emphysematous cystic changes scattered throughout the lung chambers rule out underlying eosinophilic granuloma of the lung. On today's chest x-ray there is increasing consolidation of the right lung lower lobe 10 chronic smoker 11 chronic anemia 12 history of substance abuse including IV drug use 15 peripheral neuropathy 14 migraine 15 coronary artery disease with previous history of myocardial infarction 16 poor nutrition and malnourishment 17 depression 18 very poor ability to take care of his medical needs and the patient unfortunately seems to be living independently to the state. Plan Data the electrolytes. Keep the patient off insulin drip and continue with long -acting insulin a monitor the blood sugars. Monitor the blood pressure and the patient can be chest to a medical floor if he is off the pressors for a total of 6 hours. Meanwhile, we'll be monitoring the cultures. ID is on the case. Continue local wound care. Antibiotic modification adjustments will be done based on the cultures and sensitivities. Aspiration precautions. Advance diet. We'll continue to follow.
[2017-04-07] MEDS: MICAFUNGIN 100 MG in SODIUM CHLORIDE 0.9% 100 ML IVPB SCH (09:22)
[2017-04-07] MEDS: SODIUM HYPOCHLORITE 0.5% 480 ML BOT MISCELLANE SCH ×2 (09:22→21:22)
[2017-04-07] MEDS: LOSARTAN 25 MG TAB PO SCH (11:28)
[2017-04-07] MEDS: CARVEDILOL 6.25 MG TAB PO SCH ×2 (11:28→16:26)
[2017-04-07] MEDS: MULTIVITAMINS, THERA 1 EACH TAB PO SCH (11:37)
--- NOTE | 2017-04-07 12:02 | CDI ---
In responding to this query, please exercise your independent professional judgment. The [facility] Coding Staff and Clinical Documentation Specialists appreciate your assistance in clarifying documentation, maintaining compliance with coding guidelines, accurately documenting patients condition and capturing severity of illness. The fact that a question is asked does not imply that any particular answer is desired or expected. Communication forms are a method of clarifying documentation and are not made part of the Legal Health Record. Thank you in advance for your clarification. Last Revision, December 2015 Suyapa Mata [address] [facility] [place] [address] Documentation Clarification Form Date: 04/07/2017 11:44:00 AM From: Kathy Triana RN, CCDS Admit Date: 04/05/2017 7:50:00 PM Patient Name: Ambrose Berry Visit Number: [id number] Dr. Jeffry Barcenas Hypotension is documented and requires further specificity Patient history/risk factors: Hepatitis C viral infection of the liver, DKA, Sepsis, Stage 4 sacral decub, malnourishment Clinical Indicators: 04/07 Pulmonary Progress Note: "Since his admission to the ICU, the patient was aggressively resuscitated IV fluids and the patient received a total of 3 L immediately and currently he is on 0.9 normal saline at the rate of 200 mL an hour. the patient remained hypotensive and currently is on 10 mics of Levophed. sepsis with secondary hypotension, failed to respond to fluid resuscitation and pressors." 04/06 Vitals: Temp 96.7, hr 71, RR 22, B/P 77/49, spo2 100% ra Treatment: IVF BOLUS 4L, followed by 200cc/hr Norepinephrine Drip titrate for B/P In your professional opinion, can you please specify the type of shock if known ? Septic Shock o Suspected or known causative organism o Any associated organ failure Cardiogenic Shock o Cause Hypovolemic Shock o Cause Other, please specify Unable to determine Please document in your progress notes and discharge summary in order to capture severity of illness and risk of mortality. Include clinical findings that support your diagnosis. FYI: Press F11 to launch patient chart. Place X here if this finding has no clinical significance, is not applicable or if you are not able to provide any additional documentation. FILIPPOD
--- NOTE | 2017-04-07 12:27 | CDI ---
In responding to this query, please exercise your independent professional judgment. The [facility] Coding Staff and Clinical Documentation Specialists appreciate your assistance in clarifying documentation, maintaining compliance with coding guidelines, accurately documenting patients condition and capturing severity of illness. The fact that a question is asked does not imply that any particular answer is desired or expected. Communication forms are a method of clarifying documentation and are not made part of the Legal Health Record. Thank you in advance for your clarification. Last Revision, September 2015 Suyapa Mata [address] [facility] [place] [address] Documentation Clarification Form Date: 04/07/2017 12:04:00 PM From: Kathy Triana RN, CCDS Admit Date: 04/05/2017 7:50:00 PM Patient Name: Ambrose Berry Visit Number: [id number] Dr. Jeffry Barcenas Malnourishment has been documented in H&P and consultations. History/Risk Factors: Chronic pressure ulcer stage 4 to sacrum, bilateral lower extremities amputations, dka, osteomyelitis, sacral debub stage 3, sepsis Clinical Indicators: 04/06 H&P: " General: [Patient awake, alert and oriented times 3. Patient in acute distress, cachectic emaciated malnourished arousable." 04/06 Pulmonary progress note: Very thin, cachectic, emaciated, sick looking, malnourished patient who looks way above his age. " Labs: Albumin/ Pre albumin/Total Protein: Current BMI: 16.2 Total protein 62 Albumin 3.3 Treatment: Dietary Consult: 04/06 completed Supplements/TPN: NPO status Lab monitoring: as ordered In your professional opinion, can you please clarify if these findings signify one of the following conditions? Mild Protein Malnutrition Mild Protein-Calorie Malnutrition Moderate Protein Malnutrition Moderate Protein-Calorie Malnutrition Severe Protein Malnutrition Severe Protein-Calorie Malnutrition Malnutrition following GI surgery Malnutrition Other condition, please specify Unable to determine Please document in your progress notes and discharge summary in order to capture severity of illness and risk of mortality. Include clinical findings that support your diagnosis. FYI: Press F11 to launch patient chart. Place X here if this finding has no clinical significance, is not applicable or if you are not able to provide any additional documentation. OSEI
[2017-04-07 13:19] LABS: Glucose,Whole Blood 183 mg/dL (75-99)
[2017-04-07] MEDS: HYDROcodone/APAP 7.5-325MG 1 EACH TAB PO PRN ×2 (14:09→19:51)
[2017-04-07 14:47] LABS: Anion Gap 5 mmol/L; Blood Urea Nitrogen 20 mg/dL (9-20); Calcium 8.3 mg/dL (8.4-10.2); Carbon Dioxide 16 mmol/L (22-30); Chloride 117 mmol/L (98-107); Glucose 131 mg/dL (74-99); Magnesium 2.2 mg/dL (1.6-2.3); Non-African American GFR(MDRD) >60 (>60 ml/min/1.73 sqM); Phosphorous 2.2 mg/dL (2.5-4.5); Potassium 3.9 mmol/L (3.5-5.1); Sodium 138 mmol/L (137-145)
[2017-04-07] MEDS: D5-0.45% NACL WITH KCL 20MEQ/L 1,000 ML IV SCH (18:03)
[2017-04-07] MEDS ORDERED: Potassium Replacement Protocol 1 EACH MISC MISCELLANE PRN (18:05)
[2017-04-07 18:10] LABS: Glucose,Whole Blood 103 mg/dL (75-99)
[2017-04-07] MEDS ORDERED: POTASSIUM CHLORIDE ER 20 MEQ TAB.ER PO SCH (19:00)
[2017-04-07 21:20] LABS: Glucose,Whole Blood 266 mg/dL (75-99)
[2017-04-07] MEDS: QUEtiapine 200 MG TAB PO SCH (21:21)
[2017-04-07] MEDS: ATORVASTATIN 40 MG TAB PO SCH (21:22)
[2017-04-07] MEDS: INSULIN GLARGINE 100 UNIT/ML 10 ML VIAL SQ SCH (21:24)
[2017-04-08] MEDS: METHADONE 10 MG TAB PO SCH ×4 (00:47→23:59)
[2017-04-08] MEDS: HEPARIN SODIUM,PORCINE 5,000 UNIT/ML 1 ML VIAL SQ SCH ×4 (00:47→20:58)
[2017-04-08 01:56] LABS: Glucose,Whole Blood 245 mg/dL (75-99)
[2017-04-08] MEDS: INSULIN LISPRO (humaLOG) 300 UNIT/3 ML VIAL SQ SCH ×8 (03:13→22:02)
[2017-04-08 07:21] LABS: Glucose,Whole Blood 187 mg/dL (75-99)
[2017-04-08 07:45] LABS: Anion Gap 4 mmol/L; Blood Urea Nitrogen 20 mg/dL (9-20); Calcium 8.1 mg/dL (8.4-10.2); Carbon Dioxide 15 mmol/L (22-30); Chloride 118 mmol/L (98-107); Glucose 162 mg/dL (74-99); Magnesium 1.9 mg/dL (1.6-2.3); Non-African American GFR(MDRD) >60 (>60 ml/min/1.73 sqM); Phosphorous 2.8 mg/dL (2.5-4.5); Potassium 4.9 mmol/L (3.5-5.1); Sodium 137 mmol/L (137-145)
[2017-04-08 07:47] LABS: Basophils % (A) 0 %; CH 28.2; CHCM 30.5; Eosinophils # (A) 0.3 k/uL (0-0.7); Eosinophils % (A) 4 %; HCT 23.3 % (39.0-53.0); HDW 3.49; HGB 7.3 gm/dL (13.0-17.5); Hypochromasia Marked; Luc # (Auto) 0.08; Luc % (Auto) 1; Lymphocytes # (A) 1.7 k/uL (1.0-4.8); Lymphocytes % (A) 26 %; MCH 28.9 pg (25.0-35.0); MCHC 31.1 g/dL (31.0-37.0); MCV 93.1 fL (80.0-100.0); Monocytes # (A) 0.1 k/uL (0-1.0); Monocytes % (A) 2 %; Neutrophils # (A) 4.2 k/uL (1.3-7.7); Neutrophils % (A) 66 %; Poikilocytosis Slight; RBC 2.51 m/uL (4.30-5.90); RDW 14.9 % (11.5-15.5); WBC 6.4 k/uL (3.8-10.6); WBC (Perox) 6.76
--- NOTE | 2017-04-08 08:07 | XR ---
EXAMINATION TYPE: XR chest 1V DATE OF EXAM: 04/08/2017 COMPARISON: Prior chest x-ray 04/07/2017, chest CT 09/30/2016 HISTORY: Cough TECHNIQUE: Single frontal view of the chest is obtained. FINDINGS: Patient is rotated. There are interstitial changes again noted. No pneumothorax or pleural effusion is evident. Cardiac mediastinal silhouette, pulmonary vascularity and amara not significantl y changed accounting for differences in technique. Patchy density persists bilaterally. IMPRESSION: Similar to prior exam. Correlate for interstitial lung disease, there may be a component of airspace disease. Multiple cystic foci seen in patient's prior CT are suspected.
[2017-04-08] MEDS: PANTOPRAZOLE 40 MG/10 ML VIAL IVP SCH (08:08)
[2017-04-08] MEDS: DULoxetine HCL 30 MG CAPSULE.DR PO SCH ×2 (08:09→20:57)
[2017-04-08] MEDS: GABAPENTIN 300 MG CAP PO SCH ×3 (08:09→20:58)
[2017-04-08] MEDS: ASPIRIN 81 MG CHEW PO SCH (08:10)
[2017-04-08] MEDS: LOSARTAN 25 MG TAB PO SCH (08:10)
[2017-04-08] MEDS: MICAFUNGIN 100 MG in SODIUM CHLORIDE 0.9% 100 ML IVPB SCH (08:10)
[2017-04-08] MEDS: CARVEDILOL 6.25 MG TAB PO SCH ×2 (08:10→16:35)
[2017-04-08] MEDS: SODIUM HYPOCHLORITE 0.5% 480 ML BOT MISCELLANE SCH ×2 (09:54→20:59)
[2017-04-08] MEDS ORDERED: LEVOFLOXACIN 750MG-D5W PMX 750 MG in DEXTROSE/WATER 1 150ML.BAG IVPB SCH (11:00)
[2017-04-08 12:08] LABS: Glucose,Whole Blood 78 mg/dL (75-99)
[2017-04-08 12:42] LABS: Glucose,Whole Blood 73 mg/dL (75-99)
[2017-04-08] MEDS: HYDROcodone/APAP 7.5-325MG 1 EACH TAB PO PRN ×2 (13:13→20:57)
[2017-04-08] MEDS: MULTIVITAMINS, THERA 1 EACH TAB PO SCH (13:13)
--- NOTE | 2017-04-08 13:22 | P.PN ---
Subjective Principal diagnosis: Dka, sepsis, large sacral decube Dka resolved, aka bilat, large sacral decube weg grade iv , with sepsis Objective - Vital Signs Vital signs: Vital Signs Temp 98.8 F 04/08/17 07:00 Pulse 77 04/08/17 07:00 Resp 16 04/08/17 07:00 BP 124/64 04/08/17 07:00 Pulse Ox 97 04/08/17 07:00 Intake & Output 04/07/17 04/08/17 04/08/17 18:59 06:59 18:59 Intake Total 1100 150 Output Total 2050 290 900 Balance -950 -140 -900 Intake: Intake, IV Titration 1100 50 Amount D5-0.45% NaCl with KCl 500 50 20Meq/l 1,000 ml @ 50 mls /hr IV .Q20H [facility] Rx#: [id number] DAPTOmycin 250 mg In 50 Sodium Chloride 0.9% 50 ml @ 100 mls/hr IV Q24H [facility] Rx#:[id number] Magnesium Sulfate-D5w Pmx 100 1 gm In Dextrose/Water 1 100ml.bag @ 100 mls/hr IVPB Q1H [facility] Rx#: [id number] Magnesium Sulfate-D5w Pmx 100 1 gm In Dextrose/Water 1 100ml.bag @ 100 mls/hr IVPB Q1H [facility] Rx#: [id number] Micafungin 100 mg In 100 Sodium Chloride 0.9% 100 ml @ 100 mls/hr IVPB DAILY [facility] Rx#:[id number] Sodium Phosphate 10 mmol 250 In Sodium Chloride 0.9% 250 ml @ 125 mls/hr IVPB [facility]CE [facility] Rx#:[id number] Oral 100 Output: Urine 2049 290 900 Uretheral (Castañeda) 900 Other: Voiding Method Indwelling Catheter Indwelling Catheter Indwelling Catheter - Labs CBC & Chem 7: 04/08/17 07:07 04/08/17 07:07 Labs: Abnormal Lab Results - Last 24 Hours (Table) 04/07/17 04/07/17 04/07/17 Range/Units 13:16 14:17 18:08 RBC (4.30-5.90) m/uL Hgb (13.0-17.5) gm/dL Hct (39.0-53.0) % Chloride 117 H (98-107) mmol/L Carbon Dioxide 16 L (22-30) mmol/L Creatinine 0.60 L (0.66-1.25) mg/dL Glucose 131 H (74-99) mg/dL POC Glucose (mg/dL) 183 H 103 H (75-99) mg/dL Calcium 8.3 L (8.4-10.2) mg/dL Phosphorus 2.2 L (2.5-4.5) mg/dL 04/07/17 04/08/17 04/08/17 Range/Units 21:18 01:52 07:07 RBC 2.51 L (4.30-5.90) m/uL Hgb 7.3 L (13.0-17.5) gm/dL Hct 23.3 L (39.0-53.0) % Chloride (98-107) mmol/L Carbon Dioxide (22-30) mmol/L Creatinine (0.66-1.25) mg/dL Glucose (74-99) mg/dL POC Glucose (mg/dL) 266 H 245 H (75-99) mg/dL Calcium (8.4-10.2) mg/dL Phosphorus (2.5-4.5) mg/dL 04/08/17 04/08/17 04/08/17 Range/Units 07:07 07:15 12:38 RBC (4.30-5.90) m/uL Hgb (13.0-17.5) gm/dL Hct (39.0-53.0) % Chloride 118 H (98-107) mmol/L Carbon Dioxide 15 L (22-30) mmol/L Creatinine 0.63 L (0.66-1.25) mg/dL Glucose 162 H (74-99) mg/dL POC Glucose (mg/dL) 187 H 73 L (75-99) mg/dL Calcium 8.1 L (8.4-10.2) mg/dL Phosphorus (2.5-4.5) mg/dL Microbiology - Last 24 Hours (Table) 04/06/17 10:40 Urine Culture - Final Urine,Catheterized Karina albicans 04/05/17 17:55 Gram Stain - Preliminary Buttock Wound Culture - Preliminary Proteus mirabilis Enterococcus faecalis VRE Yeast species 04/05/17 17:55 Blood Culture - Preliminary Blood No Growth after 48 hours Assessment and Plan (1) DKA (diabetic ketoacidoses) Narrative/Plan: Currently correcting insulin drip pt curently on sliding scale, being fed, of levofed Status: Acute (2) Osteomyelitis Narrative/Plan: By history as well as current cultures pending on iv antibiotics Status: Acute (3) Sacral decubitus ulcer, stage III Status: Acute (4) Sepsis Status: Acute
[2017-04-08 16:47] LABS: Glucose,Whole Blood 202 mg/dL (75-99)
--- NOTE | 2017-04-08 17:06 | P.PN ---
Subjective 76-year-old male patient, poorly controlled diabetes mellitus, with known history of osteomyelitis and a stage IV sacral decub ulceration along with history of Vascular disease and previous history of diabetic ulcer status post bilateral AKA, and a previous history of opiate and heroin user, came into the emergency department with DKA and sepsis. The patient was hypothermic. He was in acute DKA. He was in anion gap metabolic acidosis and his blood sugar was about thousand. He was hypothermic with a temperature 92.3 axillary and 92.5 rectal. Note that the patient has been followed up at the wound center by Dr. Becerra. He was in the wound center on 04/01/2017 and he was looking sick and hypotensive and lethargic and septic. He was given IV fluids and he was discharged. Based on the records, the patient's wound appears to be significantly worse and appropriate debridement was done. Based on the most recent cultures from the wound, the cultures on 03/18/2017 showed Karina albicans, VRE and Clostridium. He also is known to have MRSA, pseudomonas aeruginosa that has been multidrug resistant and Enterobacter. Since his admission to the ICU, the patient was aggressively resuscitated IV fluids and the patient received a total of 3 L immediately and currently he is on 0.9 normal saline at the rate of 200 mL an hour. He was on an insulin drip and the 0.9 saline will be switched to D5 normal saline with 20 mg of KCl as the patient's most recent blood sugar is down to 266. The insulin drip is running at 14 units an hour. The most recent electrolytes show a bicarb level of 18, anion gap of 11, a creatinine of 1.2 with a BMI of 16, white cell count is at 12.6 and a hemoglobin of 8.4. The sacral wound is large, 9 x 8 cm in size , grossly necrotic material around the wound with central erythema and purulent discharge covering the lower portion of the base. In addition, the patient remained hypotensive and currently is on 10 mics of levo fed. In terms of antibiotic coverage, the patient was given a dose of vancomycin. The lactic acid level is at 1.2. Urinary may be infected knowing that there are clumps of white cells and occasional bacteria seen. There are also some few budding yeast. The Castañeda was inserted and cultures were also sent.His chest x-ray shows an early right lower lobe pulmonary infiltrate. There is also no other densities in the right upper lobe. A previous CAT scan of the chest that was obtained in 2016 had shown multiple cystic lesions scattered throughout the lung chambers which raises the possibility of emphysema versus use a follicular normal. There is also a previously described left apical lesion measuring 3.8 cm in size. On 04/07/2017, the patient is being seen in follow-up. The patient is in intensive care unit. Hemodynamically he improved significantly. At one point he was taken off the norepinephrine infusion however later on he became hypotensive again he had to be restarted back on norepinephrine. His been off the pressors since 7:00 this morning. He is producing adequate amount of urine output. He is much more awake and alert compared to yesterday. His DKA has recovered. The patient is currently off the insulin drip and he's been switched to Lantus insulin along with Humalog sliding scale coverage. Most recent blood sugar is at 192. As far as electrolytes, he has a bicarb level of 14 with an anion gap of less than 10. The patient meanwhile was covered with broad-spectrum antibiotics. Currently is on a combination of daptomycin Levaquin and micafungin. The wound is showing gram-negative bacillus. The urine cultures still pending. The patient was seen by infectious disease. The patient is receiving local wound care. The chest x-ray from today shows some questionable infiltration of the right lung. Noted the patient is extensive emphysema with cystic bullous changes scattered throughout the lung chambers bilaterally as evident on previous CAT scan of the chest. The electrodes have been all replaced. He is tolerating diet. He is on a D5 half-normal infusion the rate of 50 mL an hour. The patient is seen again today in follow-up 04/08/2017 on the regular floor. He we have been following him while in the intensive care unit for DKA. Currently he is awake and alert in no acute distress. The wound cultures from his buttocks are positive for Proteus mirabilis, enterococcus Moralez VRE and yeast. He is currently on daptomycin, Levaquin and micafungin. Urine is positive for Karina as well. Blood cultures reveal no growth. Blood glucose levels have been ranging from 73-202 today. He is tolerating a diet now. No pulmonary complaints. He is maintaining good O2 saturations in the high 90s to 100% on room air. He is afebrile. No leukocytosis. Hemodynamically stable. Hemoglobin 7.3. Objective - Vital Signs Vital signs: Vital Signs Temp 97.8 F 04/08/17 15:00 Pulse 78 04/08/17 15:00 Resp 16 04/08/17 15:00 BP 134/68 04/08/17 15:00 Pulse Ox 100 04/08/17 15:00 Intake & Output 04/07/17 04/08/17 04/08/17 18:59 06:59 18:59 Intake Total 1100 150 Output Total 2049 290 1999 Balance -950 -140 -1999 Intake: Intake, IV Titration 1100 50 Amount D5-0.45% NaCl with KCl 500 50 20Meq/l 1,000 ml @ 50 mls /hr IV .Q20H [facility] Rx#: [id number] DAPTOmycin 250 mg In 50 Sodium Chloride 0.9% 50 ml @ 100 mls/hr IV Q24H [facility] Rx#:[id number] Magnesium Sulfate-D5w Pmx 100 1 gm In Dextrose/Water 1 100ml.bag @ 100 mls/hr IVPB Q1H [facility] Rx#: [id number] Magnesium Sulfate-D5w Pmx 100 1 gm In Dextrose/Water 1 100ml.bag @ 100 mls/hr IVPB Q1H [facility] Rx#: [id number] Micafungin 100 mg In 100 Sodium Chloride 0.9% 100 ml @ 100 mls/hr IVPB DAILY [facility] Rx#:[id number] Sodium Phosphate 10 mmol 250 In Sodium Chloride 0.9% 250 ml @ 125 mls/hr IVPB ONCE ONE Rx#:[id number] Oral 100 Output: Urine 2049 Uretheral (Castañeda) 900 Other: Voiding Method Indwelling Catheter Indwelling Catheter Indwelling Catheter - Exam Very thin, cachectic, emaciated, sick looking, malnourished patient who looks way above his age. His resting comfortably in bed. He is arousable. He will follow commands and answer simple questions.Head exam was generally normal. There was no scleral icterus or corneal arcus. Mucous membranes were moist. Eyes are sunken and mucous membranes are dry. He has very poor dentition and multiple missing teeth and dental caries. No thrush. No neck stiffness. No adenopathy. Lungs are diminished bilaterally along with some scattered rhonchi and scattered expiratory wheezes. Heart sounds are regular, positive S1-S2 and there is a faint grade 2 systolic ejection murmur heard throughout the precordium.Abdominal exam revealed normal bowel sounds. The abdomen was soft, non-tender, and without masses, organomegaly, or appreciable enlargement of the abdominal aorta. Extremities reveal above-knee amputation bilaterally, upper extremities are within normal limits. Coccygeal wound is 9 x 8 cm in size, deep to the bone, overlying tissue is quite erythematous and areas of necrosis with purulent material discharged. - Labs CBC & Chem 7: 04/08/17 07:07 04/08/17 07:07 Labs: Abnormal Lab Results - Last 24 Hours (Table) 04/07/17 04/07/17 04/08/17 Range/Units 18:08 21:18 01:52 RBC (4.30-5.90) m/uL Hgb (13.0-17.5) gm/dL Hct (39.0-53.0) % Chloride (98-107) mmol/L Carbon Dioxide (22-30) mmol/L Creatinine (0.66-1.25) mg/dL Glucose (74-99) mg/dL POC Glucose (mg/dL) 103 H 266 H 245 H (75-99) mg/dL Calcium (8.4-10.2) mg/dL 04/08/17 04/08/17 04/08/17 Range/Units 07:07 07:07 07:15 RBC 2.51 L (4.30-5.90) m/uL Hgb 7.3 L (13.0-17.5) gm/dL Hct 23.3 L (39.0-53.0) % Chloride 118 H (98-107) mmol/L Carbon Dioxide 15 L (22-30) mmol/L Creatinine 0.63 L (0.66-1.25) mg/dL Glucose 162 H (74-99) mg/dL POC Glucose (mg/dL) 187 H (75-99) mg/dL Calcium 8.1 L (8.4-10.2) mg/dL 04/08/17 04/08/17 Range/Units 12:38 16:45 RBC (4.30-5.90) m/uL Hgb (13.0-17.5) gm/dL Hct (39.0-53.0) % Chloride (98-107) mmol/L Carbon Dioxide (22-30) mmol/L Creatinine (0.66-1.25) mg/dL Glucose (74-99) mg/dL POC Glucose (mg/dL) 73 L 202 H (75-99) mg/dL Calcium (8.4-10.2) mg/dL Microbiology - Last 24 Hours (Table) 04/06/17 10:40 Urine Culture - Final Urine,Catheterized Karina albicans 04/05/17 17:55 Gram Stain - Preliminary Buttock Wound Culture - Preliminary Proteus mirabilis Enterococcus faecalis VRE Yeast species 04/05/17 17:55 Blood Culture - Preliminary Blood No Growth after 48 hours Assessment and Plan Plan: Assessment 1 DKA, essentially recovered and anion gap has closed and the bicarb level is still low at 15. 2 severe anion gap metabolic acidosis secondary to DKA, recovered and the patient has a component of non-anion gap metabolic acidosis this point 3 decubitus ulcer of the sacral region, stage IV. Patient has had previous cultures and debridement and the most recent cultures indicating Proteus mirabilis, enterococcus faecalis VRE, yeast 4 sepsis with secondary hypotension, failed to respond to fluid resuscitation and pressors 5 suspected urine checked infection, there are budding yeasts within the urine analysis tomorrow rule out fungal urinary tract infection 6 hypothermia, partly related to sepsis, recovered 7 severe peripheral vascular disease with above-knee petition bilaterally 8. Hepatitis C viral infection of the liver 9 COPD with emphysematous cystic changes scattered throughout the lung chambers rule out underlying eosinophilic granuloma of the lung. On today's chest x-ray there is increasing consolidation of the right lung lower lobe 10 chronic smoker 11 chronic anemia 12 history of substance abuse including IV drug use 15 peripheral neuropathy 14 migraine 15 coronary artery disease with previous history of myocardial infarction 16 poor nutrition and malnourishment 17 depression 18 very poor ability to take care of his medical needs and the patient unfortunately seems to be living independently to the state. Plan The patient was seen and evaluated by Dr. Masterson. His labs are reviewed. He is stable from the pulmonary and critical care standpoint. He'll remain on antibiotics in the form of daptomycin, Levaquin and micafungin. We will follow the patient on as-needed basis.
--- NOTE | 2017-04-08 18:41 | P.PN ---
Subjective Principal diagnosis: Hematemesis.-year-old male well-known to practice poorly controlled diabetic, with a known history of osteomyelitis and stage IV decubitus ulcer along along with history of vascular disease, along with bilateral AKA A. Also a long- standing history of opiate and heroine use and abuse originally came into the hospital via the alert emergency department with DKA and sepsis. Patient was originally admitted to the intensive care unit was aggressively resuscitated with IV fluid patient received a total of 3 L immediately and is currently 0.9 in and 200 hour. He was initially on an insulin drip. Is currently on sliding scale coverage. Most recent electrolytes showed bicarb of 18 anion gap of 11 creatinine of 1.2 with a BMI of 16 white count was 12.6 hemoglobin originally was 8.4 it's currently 7.3. Patient has a large sacral decub measuring approximately 9 cm x 8 cm that grossly necrotic exposed bone is noted. Dr. Becrera did debride the wound while patient was in the intensive care unit. Patient is currently awake alert vital signs are stable he is steadily afebrile tolerating diet no pulmonary complaints O2 sats are in the 90s to 100 100s on room air wound cultures from the buttocks are positive for Proteus mirabilis and enterococcus cellulitis the RE and yeast he is currently on daptomycin and Levaquin and micafungin. Urine is positive for Karina as well. Blood cultures revealed no growth. Glucose sugars have ranged between 73 and 202 today Dka resolved, aka bilat, large sacral decube weg grade iv , with sepsis Objective - Vital Signs Vital signs: Vital Signs Temp 97.8 F 04/08/17 15:00 Pulse 78 04/08/17 15:00 Resp 16 04/08/17 15:00 BP 134/68 04/08/17 15:00 Pulse Ox 100 04/08/17 15:00 Intake & Output 04/07/17 04/08/17 04/08/17 18:59 06:59 18:59 Intake Total 1100 150 Output Total 2049 290 2600 Balance -950 -140 -2600 Intake: Intake, IV Titration 1100 50 Amount D5-0.45% NaCl with KCl 500 50 20Meq/l 1,000 ml @ 50 mls /hr IV .Q20H [facility] Rx#: [id number] DAPTOmycin 250 mg In 50 Sodium Chloride 0.9% 50 ml @ 100 mls/hr IV Q24H [facility] Rx#:[id number] Magnesium Sulfate-D5w Pmx 100 1 gm In Dextrose/Water 1 100ml.bag @ 100 mls/hr IVPB Q1H [facility] Rx#: [id number] Magnesium Sulfate-D5w Pmx 100 1 gm In Dextrose/Water 1 100ml.bag @ 100 mls/hr IVPB Q1H [facility] Rx#: [id number] Micafungin 100 mg In 100 Sodium Chloride 0.9% 100 ml @ 100 mls/hr IVPB DAILY [facility] Rx#:[id number] Sodium Phosphate 10 mmol 250 In Sodium Chloride 0.9% 250 ml @ 125 mls/hr IVPB ONCE ONE Rx#:[id number] Oral 100 Output: Urine 2050 290 2600 Uretheral (Castañeda) 900 Other: Voiding Method Indwelling Catheter Indwelling Catheter Indwelling Catheter - Exam General: [Patient awake, alert and oriented times 3. Patient in no acute distress.] HEENT: [PERRL. EOMI. No pharyngeal erythema or exudate.] Patient has poor oral hygiene is basically edentulous Neck: [No adenopathy.] Cardiac: [Heart regular in rate and rhythm. No S3. No S4. No clicks, rubs. No murmur.] Lungs: [Clear to auscultation bilaterally.] Abdomen: [No mass. No organomegaly. Bowel sounds presnt and normoactive in all 4 quadrants.] Extremes; patient has AKA's bilaterally Patient has a large sacral wound 19.0 x 8.0 cm in size of the depth is significant exposed bone is visualized the wound is grossly necrotic material Musculoskeletal: [No joint erythema, edema or tenderness.] Skin: [No rash.] Neurologic: [No lateralizing deficits. CN II - XII grossly intact.] Lymphatic: [No adenopathy.] - Labs CBC & Chem 7: 04/08/17 07:07 04/08/17 07:07 Labs: Abnormal Lab Results - Last 24 Hours (Table) 04/07/17 04/08/17 04/08/17 Range/Units 21:18 01:52 07:07 RBC 2.51 L (4.30-5.90) m/uL Hgb 7.3 L (13.0-17.5) gm/dL Hct 23.3 L (39.0-53.0) % Chloride (98-107) mmol/L Carbon Dioxide (22-30) mmol/L Creatinine (0.66-1.25) mg/dL Glucose (74-99) mg/dL POC Glucose (mg/dL) 266 H 245 H (75-99) mg/dL Calcium (8.4-10.2) mg/dL 04/08/17 04/08/17 04/08/17 Range/Units 07:07 07:15 12:38 RBC (4.30-5.90) m/uL Hgb (13.0-17.5) gm/dL Hct (39.0-53.0) % Chloride 118 H (98-107) mmol/L Carbon Dioxide 15 L (22-30) mmol/L Creatinine 0.63 L (0.66-1.25) mg/dL Glucose 162 H (74-99) mg/dL POC Glucose (mg/dL) 187 H 73 L (75-99) mg/dL Calcium 8.1 L (8.4-10.2) mg/dL 04/08/17 Range/Units 16:45 RBC (4.30-5.90) m/uL Hgb (13.0-17.5) gm/dL Hct (39.0-53.0) % Chloride (98-107) mmol/L Carbon Dioxide (22-30) mmol/L Creatinine (0.66-1.25) mg/dL Glucose (74-99) mg/dL POC Glucose (mg/dL) 202 H (75-99) mg/dL Calcium (8.4-10.2) mg/dL Microbiology - Last 24 Hours (Table) 04/06/17 10:40 Urine Culture - Final Urine,Catheterized Karina albicans 04/05/17 17:55 Gram Stain - Preliminary Buttock Wound Culture - Preliminary Proteus mirabilis Enterococcus faecalis VRE Yeast species 04/05/17 17:55 Blood Culture - Preliminary Blood No Growth after 48 hours Assessment and Plan (1) DKA (diabetic ketoacidoses) Narrative/Plan: Patient is tolerating oral intake and is on a sliding scale with coverage Status: Acute (2) Osteomyelitis Narrative/Plan: Wound cultures from the buttock are positive for Proteus mirabilis, enterococcus cellulitis BITA and yeast Meds include daptomycin and Levaquin and micafungin urine is positive for Karina as well. Blood cultures reveal no growth Status: Acute (3) Sacral decubitus ulcer, stage III Narrative/Plan: Chronic coccygeal wound is 9 x 8 cm in size deep to the bone overlying tissue is erythematous with areas of necrosis) once Status: Acute (4) Sepsis Narrative/Plan: Wound cultures from buttocks are positive for Proteus mirabilis enterococcus Moralez [facility] [place] patient is currently on daptomycin and Levaquin and micafungin also urine is positive for Karina. Blood cultures reveal no growth Status: Acute
[2017-04-08] MEDS: ATORVASTATIN 40 MG TAB PO SCH (20:57)
[2017-04-08] MEDS: QUEtiapine 200 MG TAB PO SCH (20:58)
[2017-04-08] MEDS: INSULIN GLARGINE 100 UNIT/ML 10 ML VIAL SQ SCH (20:58)
--- NOTE | 2017-04-08 21:27 | P.PN ---
Subjective Principal diagnosis: Sepsis 56-year-old male well-known to the infectious disease service due to his many hospitalizations regarding bouts of sepsis relating to the patient's uncontrolled diabetes, urinary infections, and chronic coccyx ulceration. 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 Patient now presents from his apartment weak and ill. At presentation blood sugar was greater than 1200, patient had tanya diabetic ketoacidosis. Evidence of underlying infection with urinary infection and worsening of his coccyx ulceration. The patient has had fluid resuscitation, and short period of the xiphoid was given because of his hypotension. This is now off. Was able to sit up and eat part of this light dinner tonight, denies nausea or emesis. Does relate that his oral cavity is sore and it hurts a bit to swallow. He feels poorly but better than earlier. His prior confusion also seems to be improved. Patient appears to be a complete loss as to how he has gotten so sick again. We discussed that he routinely gets admitted with diabetic ketoacidosis with significant illness and then sepsis. There is a significant mismatch between his knowledge, his disease state, and how he takes care of himself. The most recent series of events illustrates clearly his inability to manage his sugars. Has slight improvement today. Objective - Vital Signs Vital signs: Vital Signs Temp 97.3 F L 04/08/17 19:56 Pulse 78 04/08/17 19:56 Resp 16 04/08/17 19:56 BP 127/73 04/08/17 19:56 Pulse Ox 99 04/08/17 19:56 Intake & Output 04/08/17 04/08/17 04/09/17 06:59 18:59 06:59 Intake Total 150 Output Total 290 2600 Balance -140 -2600 Intake: Intake, IV Titration 50 Amount D5-0.45% NaCl with KCl 50 20Meq/l 1,000 ml @ 50 mls /hr IV .Q20H [facility] Rx#: [id number] Oral 100 Output: Urine 290 2600 Uretheral (Castañeda) 900 Other: Voiding Method Indwelling Catheter Indwelling Catheter - Exam This is a 56-year-old emaciated male. Sitting up at 40. Mentation is improved from earlier. HEENT: Head is atraumatic, normocephalic. Pupils equal, round. Sclerae is anicteric. Mucous membranes of the mouth are dry. Thrush is noted. Dentition is in poor order. NECK: Supple. No JVD. No lymphadenopathy. No thyromegaly. LUNGS: Coarse sounds bilaterally with poor inspiratory effort. No intercostal retractions. HEART: Regular rate and rhythm. No murmur. ABDOMEN: Soft. Bowel sounds are present. No masses. No tenderness. EXTREMITIES: Bilateral lower extremity amputations noted. Evidence of the open ulceration to the right lateral residual limb. Present 2 x 2 by 0.2 cm. NEUROLOGICAL: Patient is now awake and alert. Is able to state my name He does not remember yesterday well. The coccyx ulceration measures at 8 x7 x 0.5 cm. with purulence and necrosis especially at the 3 o'clock position there is also a small ulceration of 2 x 2 x 0.2 cm on the right upper thigh posterior - Labs CBC & Chem 7: 04/08/17 07:07 04/08/17 07:07 Labs: Abnormal Lab Results - Last 24 Hours (Table) 04/08/17 04/08/17 04/08/17 Range/Units 01:52 07:07 07:07 RBC 2.51 L (4.30-5.90) m/uL Hgb 7.3 L (13.0-17.5) gm/dL Hct 23.3 L (39.0-53.0) % Chloride 118 H (98-107) mmol/L Carbon Dioxide 15 L (22-30) mmol/L Creatinine 0.63 L (0.66-1.25) mg/dL Glucose 162 H (74-99) mg/dL POC Glucose (mg/dL) 245 H (75-99) mg/dL Calcium 8.1 L (8.4-10.2) mg/dL Crossmatch 04/08/17 04/08/17 04/08/17 Range/Units 07:15 12:38 16:45 RBC (4.30-5.90) m/uL Hgb (13.0-17.5) gm/dL Hct (39.0-53.0) % Chloride (98-107) mmol/L Carbon Dioxide (22-30) mmol/L Creatinine (0.66-1.25) mg/dL Glucose (74-99) mg/dL POC Glucose (mg/dL) 187 H 73 L 202 H (75-99) mg/dL Calcium (8.4-10.2) mg/dL Crossmatch 04/08/17 Range/Units 18:52 RBC (4.30-5.90) m/uL Hgb (13.0-17.5) gm/dL Hct (39.0-53.0) % Chloride (98-107) mmol/L Carbon Dioxide (22-30) mmol/L Creatinine (0.66-1.25) mg/dL Glucose (74-99) mg/dL POC Glucose (mg/dL) (75-99) mg/dL Calcium (8.4-10.2) mg/dL Crossmatch See Detail Microbiology - Last 24 Hours (Table) 04/05/17 17:55 Blood Culture - Preliminary Blood No Growth after 72 hours 04/06/17 10:40 Urine Culture - Final Urine,Catheterized Karina albicans 04/05/17 17:55 Gram Stain - Preliminary Buttock Wound Culture - Preliminary Proteus mirabilis Enterococcus faecalis VRE Yeast species Laboratory Results WBC 6.4 k/uL (3.8-10.6) 04/08/17 07:07 RBC 2.51 m/uL (4.30-5.90) L 04/08/17 07:07 Hgb 7.3 gm/dL (13.0-17.5) L 04/08/17 07:07 Hct 23.3 % (39.0-53.0) L 04/08/17 07:07 MCV 93.1 fL (80.0-100.0) 04/08/17 07:07 MCH 28.9 pg (25.0-35.0) 04/08/17 07:07 MCHC 31.1 g/dL (31.0-37.0) 04/08/17 07:07 RDW 14.9 % (11.5-15.5) 04/08/17 07:07 Plt Count 343 k/uL (150-450) 04/08/17 07:07 Neutrophils % 66 % 04/08/17 07:07 Lymphocytes % 26 % 04/08/17 07:07 Monocytes % 2 % 04/08/17 07:07 Eosinophils % 4 % 04/08/17 07:07 Basophils % 0 % 04/08/17 07:07 Neutrophils # 4.2 k/uL (1.3-7.7) 04/08/17 07:07 Lymphocytes # 1.7 k/uL (1.0-4.8) 04/08/17 07:07 Monocytes # 0.1 k/uL (0-1.0) 04/08/17 07:07 Eosinophils # 0.3 k/uL (0-0.7) 04/08/17 07:07 Basophils # 0.0 k/uL (0-0.2) 04/08/17 07:07 Hypochromasia Marked 04/08/17 07:07 Poikilocytosis Slight 04/08/17 07:07 Macrocytosis Slight 04/05/17 17:55 VBG pH 7.11 (7.31-7.41) L* 04/05/17 17:55 VBG pCO2 22 mmHg (37-51) L 04/05/17 17:55 VBG HCO3 7 mmol/L (24-28) L* 04/05/17 17:55 Sodium 137 mmol/L (137-145) 04/08/17 07:07 Potassium 4.9 mmol/L (3.5-5.1) 04/08/17 07:07 Chloride 118 mmol/L (98-107) H 04/08/17 07:07 Carbon Dioxide 15 mmol/L (22-30) L 04/08/17 07:07 Anion Gap 4 mmol/L 04/08/17 07:07 BUN 20 mg/dL (9-20) 04/08/17 07:07 Creatinine 0.63 mg/dL (0.66-1.25) L 04/08/17 07:07 Est GFR (MDRD) Af Amer >60 (>60 ml/min/1.73 sqM) 04/08/17 07:07 Est GFR (MDRD) Non-Af >60 (>60 ml/min/1.73 sqM) 04/08/17 07:07 Glucose 162 mg/dL (74-99) H 04/08/17 07:07 POC Glucose (mg/dL) 202 mg/dL (75-99) H 04/08/17 16:45 POC Glu Inspector Screen Printing ID Mary Ann Hernandez 04/08/17 16:[address] Glu mg/dL 303 mg/dL 04/06/17 16:22 Hemoglobin A1c 12.2 % (4.2-6.1) H 04/06/17 16:22 Osmolality 359 mosm/kg (280-301) H* 04/05/17 17:55 Plasma Lactic Acid Ayo 1.2 mmol/L (0.7-2.0) 04/05/17 23:33 Calcium 8.1 mg/dL (8.4-10.2) L 04/08/17 07:07 Phosphorus 2.8 mg/dL (2.5-4.5) 04/08/17 07:07 Magnesium 1.9 mg/dL (1.6-2.3) 04/08/17 07:07 Total Bilirubin 0.5 mg/dL (0.2-1.3) 04/05/17 19:45 AST 12 U/L (17-59) L 04/05/17 19:45 ALT 25 U/L (21-72) 04/05/17 19:45 Alkaline Phosphatase 97 U/L (38-126) 04/05/17 19:45 Total Protein 6.2 g/dL (6.3-8.2) L 04/05/17 19:45 Albumin 3.3 g/dL (3.5-5.0) L 04/05/17 19:45 Urine Color Colorless 04/05/17 20:25 Urine Appearance Clear (Clear) 04/05/17 20:25 Urine pH 5.0 (5.0-8.0) 04/05/17 20:25 Ur Specific [place] 1.014 (1.001-1.035) 04/05/17 20:25 Urine Protein Trace (Negative) H 04/05/17 20:25 Urine Glucose (UA) 4+ (Negative) H 04/05/17 20:25 Urine Ketones 2+ (Negative) H 04/05/17 20:25 Urine Blood Negative (Negative) 04/05/17 20:25 Urine Nitrite Negative (Negative) 04/05/17 20:25 Urine Bilirubin Negative (Negative) 04/05/17 20:25 Urine Urobilinogen <2.0 mg/dL (<2.0) 04/05/17 20:25 Ur Leukocyte Esterase Moderate (Negative) H 04/05/17 20:25 Urine RBC 1 /hpf (0-5) 04/05/17 20:25 Urine WBC 71 /hpf (0-5) H 04/05/17 20:25 Urine WBC Clumps Many /hpf (None) H 04/05/17 20:25 Ur Squamous Epith Cells <1 /hpf (0-4) 04/05/17 20:25 Amorphous Sediment Occasional /hpf (None) H 04/05/17 20:25 Urine Bacteria Rare /hpf (None) H 04/05/17 20:25 Urine Mucus Rare /hpf (None) H 04/05/17 20:25 Urine Yeast (Budding) Few /hpf (None) H 04/05/17 20:25 Acetone, Qual Positive (Negative) 04/05/17 17:55 Blood Type A Positive 04/08/17 18:52 Blood Type Recheck No 04/08/17 18:52 Antibody Screen NEGATIVE 04/08/17 18:52 Crossmatch See Detail 04/08/17 18:52 Spec Expiration Date 04/11/2017 - 9584 04/08/17 18:52 Microbiology 04/05/17 17:55 Blood Blood Culture - Preliminary No Growth after 72 hours 04/06/17 10:40 Urine,Catheterized Urine Culture - Final Karina albicans 04/05/17 17:55 Buttock Gram Stain - Preliminary 04/05/17 17:55 Buttock Wound Culture - Preliminary Proteus mirabilis Enterococcus faecalis VRE Yeast species 04/05/17 19:47 Buttock Anaerobic Culture - Preliminary Assessment and Plan (1) DKA (diabetic ketoacidoses) Status: Acute (2) Sepsis Narrative/Plan: 56-year-old male presents to emergency center with altered mental status feeling ill. With evidence of recurrence of his ketotic hyperglycemia. Initial blood sugar 1359, osmolality 359, venous pH 7.11. Patient is now had some improvement after fluid resuscitation, improvement of blood sugar, and some vasopressor support. 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 Patient's mentation is improving. Is having a discussion ensues as far as his current course. He believes he is doing things well at home. However his illness proves that he is not taking care of himself. There is distinct mismatch between how he cares for himself, what he eats, and who takes care of his insulin, all of which result in the current difficulties. As his blood sugars increase he then developed secondary infections. Appears to have a urinary tract infection at this time. Pulmonary has seen and there is worry about pneumonia but his pulmonary status is about his baseline. The coccyx ulceration is with a large area of necrosis that will require more extensive debridement when he is healthier. The cultures are reviewed There is evidence of a multidrug resistant pseudomonas aeruginosa that will not be treatable at this time. The other pathogens that include VRE and MRSA will be treated with daptomycin. Patient's thrush will be treated with the micafungin that has been started Repeat cultures are revealing evidence of Proteus mirabilis that is not significantly resistant as well as the VRE. As well as yeast. Levaquin is being utilized to treat the Proteus and micafungin for the yeast. Wound care is reviewed with the nursing staff and the day Dakins is for the large sacral ulceration. The patient's prognosis is extremely poor. Status: Acute (3) Noncompliance Status: Acute
[2017-04-08 22:04] LABS: Glucose,Whole Blood 114 mg/dL (75-99)
[2017-04-09] MEDS: D5-0.45% NACL WITH KCL 20MEQ/L 1,000 ML IV SCH ×2 (00:04→18:00)
[2017-04-09] MEDS: INSULIN LISPRO (humaLOG) 300 UNIT/3 ML VIAL SQ SCH ×8 (05:52→21:16)
--- NOTE | 2017-04-09 07:14 | XR ---
EXAMINATION TYPE: XR chest 1V DATE OF EXAM: 04/09/2017 HISTORY: cough. REFERENCE: Previous study dated 04/08/2017. FINDINGS: Lung volumes are prominent. The heart is not enlarged. There is chronic interstitial change . There is a spiculated density in the right midlung, unchanged from previous. This was not present o n the previous study from October 2016. IMPRESSION: 1. COPD. 2. INTERSTITIAL FIBROSIS. 3. SPICULATED DENSITY IN THE RIGHT MIDLUNG. A CT SCAN OF THE CHEST WOULD BE SUGGESTED.
[2017-04-09 07:32] LABS: Anion Gap 5 mmol/L; Blood Urea Nitrogen 20 mg/dL (9-20); Calcium 8.5 mg/dL (8.4-10.2); Carbon Dioxide 18 mmol/L (22-30); Chloride 113 mmol/L (98-107); Glucose 104 mg/dL (74-99); Magnesium 1.4 mg/dL (1.6-2.3); Non-African American GFR(MDRD) >60 (>60 ml/min/1.73 sqM); Phosphorous 3.3 mg/dL (2.5-4.5); Potassium 4.7 mmol/L (3.5-5.1); Sodium 136 mmol/L (137-145)
[2017-04-09 07:39] LABS: Basophils % (A) 0 %; CH 29.2; CHCM 32.6; Eosinophils # (A) 0.4 k/uL (0-0.7); Eosinophils % (A) 5 %; HCT 28.7 % (39.0-53.0); HDW 3.49; Hypochromasia Slight; Luc # (Auto) 0.07; Luc % (Auto) 1; Lymphocytes # (A) 2.1 k/uL (1.0-4.8); Lymphocytes % (A) 28 %; MCHC 32.1 g/dL (31.0-37.0); MCV 90.1 fL (80.0-100.0); Mean Platelet Volume 7.1; Monocytes # (A) 0.2 k/uL (0-1.0); Monocytes % (A) 2 %; Neutrophils # (A) 4.7 k/uL (1.3-7.7); Neutrophils % (A) 63 %; Poikilocytosis Slight; RBC 3.18 m/uL (4.30-5.90); RDW 14.8 % (11.5-15.5); WBC 7.4 k/uL (3.8-10.6); WBC (Perox) 7.82
[2017-04-09 07:43] LABS: HGB 9.2 gm/dL (13.0-17.5)
[2017-04-09 07:52] LABS: Glucose,Whole Blood 111 mg/dL (75-99)
[2017-04-09] MEDS: METHADONE 10 MG TAB PO SCH ×3 (08:05→23:06)
[2017-04-09] MEDS: CARVEDILOL 6.25 MG TAB PO SCH ×2 (08:05→17:59)
[2017-04-09] MEDS: PANTOPRAZOLE 40 MG TABLET PO SCH (08:05)
[2017-04-09] MEDS: HEPARIN SODIUM,PORCINE 5,000 UNIT/ML 1 ML VIAL SQ SCH ×3 (08:06→23:06)
[2017-04-09] MEDS: ASPIRIN 81 MG CHEW PO SCH (10:09)
[2017-04-09] MEDS: GABAPENTIN 300 MG CAP PO SCH ×3 (10:09→21:14)
[2017-04-09] MEDS: DULoxetine HCL 30 MG CAPSULE.DR PO SCH ×2 (10:09→21:14)
[2017-04-09] MEDS: LOSARTAN 25 MG TAB PO SCH (10:09)
[2017-04-09] MEDS: LEVOFLOXACIN 750 MG TAB PO SCH (10:09)
[2017-04-09] MEDS: SODIUM HYPOCHLORITE 0.5% 480 ML BOT MISCELLANE SCH ×2 (10:12→22:54)
[2017-04-09] MEDS: MICAFUNGIN 100 MG in SODIUM CHLORIDE 0.9% 100 ML IVPB SCH (10:12)
[2017-04-09] MEDS ORDERED: Magnesium Replacement Protocol 1 EACH MISC MISCELLANE PRN (10:49)
[2017-04-09 11:17] VITALS: BMI 16.2
[2017-04-09] MEDS: MAGNESIUM SULFATE-D5W PMX 1 GM in DEXTROSE/WATER 1 100ML.BAG IVPB SCH ×3 (11:36→14:57)
[2017-04-09 12:05] LABS: Glucose,Whole Blood 77 mg/dL (75-99)
[2017-04-09] MEDS: MULTIVITAMINS, THERA 1 EACH TAB PO SCH (12:57)
--- NOTE | 2017-04-09 13:30 | P.PN ---
Subjective Principal diagnosis: Sepsis 56-year-old male well-known to the infectious disease service due to his many hospitalizations regarding bouts of sepsis relating to the patient's uncontrolled diabetes, urinary infections, and chronic coccyx ulceration. These also had significant difficulties with infected limbs and had the right [id number] amputation done last June. Patient now presents from his apartment weak and ill. At presentation blood sugar was greater than 1200, patient had tanya diabetic ketoacidosis. Evidence of underlying infection with urinary infection and worsening of his coccyx ulceration. The patient has had fluid resuscitation, and short period of the xiphoid was given because of his hypotension. This is now off. Was able to sit up and eat part of this light dinner tonight, denies nausea or emesis. Does relate that his oral cavity is sore and it hurts a bit to swallow. He feels poorly but better than earlier. His prior confusion also seems to be improved. Patient appears to be a complete loss as to how he has gotten so sick again. We discussed that he routinely gets admitted with diabetic ketoacidosis with significant illness and then sepsis. There is a significant mismatch between his knowledge, his disease state, and how he takes care of himself. The most recent series of events illustrates clearly his inability to manage his sugars. Has slight improvement today. Objective - Vital Signs Vital signs: Vital Signs Temp 98.6 F 04/09/17 07:00 Pulse 82 04/09/17 07:00 Resp 16 04/09/17 07:00 BP 120/69 04/09/17 07:00 Pulse Ox 99 04/09/17 07:00 Intake & Output 04/08/17 04/09/17 04/09/17 18:59 06:59 18:59 Intake Total 970 Output Total 2600 1600 1200 Balance -2600 -630 -1200 Weight 44.217 kg Intake: Intake, IV Titration 250 Amount D5-0.45% NaCl with KCl 250 20Meq/l 1,000 ml @ 50 mls /hr IV .Q20H [facility] Rx#: [id number] Oral 100 Blood Product 620 Rc As-1 Unit 310 [id number] Output: Urine 2600 1600 1200 Uretheral (Castañeda) 900 Other: Voiding Method Indwelling Catheter Indwelling Catheter Indwelling Catheter - Exam This is a 56-year-old emaciated male. Sitting up at 40. Mentation is improved from earlier. HEENT: Head is atraumatic, normocephalic. Pupils equal, round. Sclerae is anicteric. Mucous membranes of the mouth are dry. Thrush is noted. Dentition is in poor order. NECK: Supple. No JVD. No lymphadenopathy. No thyromegaly. LUNGS: Coarse sounds bilaterally with poor inspiratory effort. No intercostal retractions. HEART: Regular rate and rhythm. No murmur. ABDOMEN: Soft. Bowel sounds are present. No masses. No tenderness. EXTREMITIES: Bilateral lower extremity amputations noted. Evidence of the open ulceration to the right lateral residual limb. Present 2 x 2 by 0.2 cm. NEUROLOGICAL: Patient is now awake and alert. Is able to state my name He does not remember yesterday well. The coccyx ulceration measures at 8 x7 x 0.5 cm. with purulence and necrosis especially at the 3 o'clock position there is also a small ulceration of 2 x 2 x 0.2 cm on the right upper thigh posterior - Labs CBC & Chem 7: 04/09/17 06:59 04/09/17 06:59 Labs: Abnormal Lab Results - Last 24 Hours (Table) 04/08/17 04/08/17 04/08/17 Range/Units 16:45 18:52 22:01 RBC (4.30-5.90) m/uL Hgb (13.0-17.5) gm/dL Hct (39.0-53.0) % Sodium (137-145) mmol/L Chloride (98-107) mmol/L Carbon Dioxide (22-30) mmol/L Glucose (74-99) mg/dL POC Glucose (mg/dL) 202 H 114 H (75-99) mg/dL Magnesium (1.6-2.3) mg/dL Crossmatch See Detail 04/09/17 04/09/17 04/09/17 Range/Units 06:59 06:59 07:21 RBC 3.18 L (4.30-5.90) m/uL Hgb 9.2 L D (13.0-17.5) gm/dL Hct 28.7 L (39.0-53.0) % Sodium 136 L (137-145) mmol/L Chloride 113 H (98-107) mmol/L Carbon Dioxide 18 L (22-30) mmol/L Glucose 104 H (74-99) mg/dL POC Glucose (mg/dL) 111 H (75-99) mg/dL Magnesium 1.4 L (1.6-2.3) mg/dL Crossmatch Microbiology - Last 24 Hours (Table) 04/05/17 19:47 Anaerobic Culture - Preliminary Buttock 04/05/17 17:55 Blood Culture - Preliminary Blood No Growth after 72 hours 04/06/17 10:40 Urine Culture - Final Urine,Catheterized Karina albicans Laboratory Results WBC 7.4 k/uL (3.8-10.6) 04/09/17 06:59 RBC 3.18 m/uL (4.30-5.90) L 04/09/17 06:59 Hgb 9.2 gm/dL (13.0-17.5) L D 04/09/17 06:59 Hct 28.7 % (39.0-53.0) L 04/09/17 06:59 MCV 90.1 fL (80.0-100.0) 04/09/17 06:59 MCH 29.0 pg (25.0-35.0) 04/09/17 06:59 MCHC 32.1 g/dL (31.0-37.0) 04/09/17 06:59 RDW 14.8 % (11.5-15.5) 04/09/17 06:59 Plt Count 341 k/uL (150-450) 04/09/17 06:59 Neutrophils % 63 % 04/09/17 06:59 Lymphocytes % 28 % 04/09/17 06:59 Monocytes % 2 % 04/09/17 06:59 Eosinophils % 5 % 04/09/17 06:59 Basophils % 0 % 04/09/17 06:59 Neutrophils # 4.7 k/uL (1.3-7.7) 04/09/17 06:59 Lymphocytes # 2.1 k/uL (1.0-4.8) 04/09/17 06:59 Monocytes # 0.2 k/uL (0-1.0) 04/09/17 06:59 Eosinophils # 0.4 k/uL (0-0.7) 04/09/17 06:59 Basophils # 0.0 k/uL (0-0.2) 04/09/17 06:59 Hypochromasia Slight 04/09/17 06:59 Poikilocytosis Slight 04/09/17 06:59 Macrocytosis Slight 04/05/17 17:55 VBG pH 7.11 (7.31-7.41) L* 04/05/17 17:55 VBG pCO2 22 mmHg (37-51) L 04/05/17 17:55 VBG HCO3 7 mmol/L (24-28) L* 04/05/17 17:55 Sodium 136 mmol/L (137-145) L 04/09/17 06:59 Potassium 4.7 mmol/L (3.5-5.1) 04/09/17 06:59 Chloride 113 mmol/L (98-107) H 04/09/17 06:59 Carbon Dioxide 18 mmol/L (22-30) L 04/09/17 06:59 Anion Gap 5 mmol/L 04/09/17 06:59 BUN 20 mg/dL (9-20) 04/09/17 06:59 Creatinine 0.73 mg/dL (0.66-1.25) 04/09/17 06:59 Est GFR (MDRD) Af Amer >60 (>60 ml/min/1.73 sqM) 04/09/17 06:59 Est GFR (MDRD) Non-Af >60 (>60 ml/min/1.73 sqM) 04/09/17 06:59 Glucose 104 mg/dL (74-99) H 04/09/17 06:59 POC Glucose (mg/dL) 77 mg/dL (75-99) 04/09/17 12:02 POC Glu Suction Roller ID Mary Ann Hernandez 04/09/17 12:[address] Glu mg/dL 303 mg/dL 04/06/17 16:22 Hemoglobin A1c 12.2 % (4.2-6.1) H 04/06/17 16:22 Osmolality 359 mosm/kg (280-301) H* 04/05/17 17:55 Plasma Lactic Acid Ayo 1.2 mmol/L (0.7-2.0) 04/05/17 23:33 Calcium 8.5 mg/dL (8.4-10.2) 04/09/17 06:59 Phosphorus 3.3 mg/dL (2.5-4.5) 04/09/17 06:59 Magnesium 1.4 mg/dL (1.6-2.3) L 04/09/17 06:59 Total Bilirubin 0.5 mg/dL (0.2-1.3) 04/05/17 19:45 AST 12 U/L (17-59) L 04/05/17 19:45 ALT 25 U/L (21-72) 04/05/17 19:45 Alkaline Phosphatase 97 U/L (38-126) 04/05/17 19:45 Total Protein 6.2 g/dL (6.3-8.2) L 04/05/17 19:45 Albumin 3.3 g/dL (3.5-5.0) L 04/05/17 19:45 Urine Color Colorless 04/05/17 20:25 Urine Appearance Clear (Clear) 04/05/17 20:25 Urine pH 5.0 (5.0-8.0) 04/05/17 20:25 Ur Specific [place] 1.014 (1.001-1.035) 04/05/17 20:25 Urine Protein Trace (Negative) H 04/05/17 20:25 Urine Glucose (UA) 4+ (Negative) H 04/05/17 20:25 Urine Ketones 2+ (Negative) H 04/05/17 20:25 Urine Blood Negative (Negative) 04/05/17 20:25 Urine Nitrite Negative (Negative) 04/05/17 20:25 Urine Bilirubin Negative (Negative) 04/05/17 20:25 Urine Urobilinogen <2.0 mg/dL (<2.0) 04/05/17 20:25 Ur Leukocyte Esterase Moderate (Negative) H 04/05/17 20:25 Urine RBC 1 /hpf (0-5) 04/05/17 20:25 Urine WBC 71 /hpf (0-5) H 04/05/17 20:25 Urine WBC Clumps Many /hpf (None) H 04/05/17 20:25 Ur Squamous Epith Cells <1 /hpf (0-4) 04/05/17 20:25 Amorphous Sediment Occasional /hpf (None) H 04/05/17 20:25 Urine Bacteria Rare /hpf (None) H 04/05/17 20:25 Urine Mucus Rare /hpf (None) H 04/05/17 20:25 Urine Yeast (Budding) Few /hpf (None) H 04/05/17 20:25 Acetone, Qual Positive (Negative) 04/05/17 17:55 Blood Type A Positive 04/08/17 18:52 Blood Type Recheck No 04/08/17 18:52 Antibody Screen NEGATIVE 04/08/17 18:52 Crossmatch See Detail 04/08/17 18:52 Spec Expiration Date 04/11/2017 - 1713 04/08/17 18:52 Microbiology 04/05/17 19:47 Buttock Anaerobic Culture - Preliminary 04/05/17 17:55 Blood Blood Culture - Preliminary No Growth after 72 hours 04/06/17 10:40 Urine,Catheterized Urine Culture - Final Karina albicans 04/05/17 17:55 Buttock Gram Stain - Preliminary 04/05/17 17:55 Buttock Wound Culture - Preliminary Proteus mirabilis Enterococcus faecalis VRE Yeast species Assessment and Plan (1) DKA (diabetic ketoacidoses) Status: Acute (2) Sepsis Narrative/Plan: 56-year-old male presents to emergency center with altered mental status feeling ill. With evidence of recurrence of his ketotic hyperglycemia. Initial blood sugar 1359, osmolality 359, venous pH 7.11. Patient is now had some improvement after fluid resuscitation, improvement of blood sugar, and some vasopressor support. 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 Patient's mentation is improving. Is having a discussion ensues as far as his current course. He believes he is doing things well at home. However his illness proves that he is not taking care of himself. There is distinct mismatch between how he cares for himself, what he eats, and who takes care of his insulin, all of which result in the current difficulties. As his blood sugars increase he then developed secondary infections. Appears to have a urinary tract infection at this time. Pulmonary has seen and there is worry about pneumonia but his pulmonary status is about his baseline. The coccyx ulceration is with a large area of necrosis that will require more extensive debridement when he is healthier. The cultures are reviewed There is evidence of a multidrug resistant pseudomonas aeruginosa that will not be treatable at this time. The other pathogens that include VRE and MRSA will be treated with daptomycin. Patient's thrush will be treated with the micafungin that has been started Repeat cultures are revealing evidence of Proteus mirabilis that is not significantly resistant as well as the VRE. As well as yeast. Levaquin is being utilized to treat the Proteus and micafungin for the yeast. Wound care is reviewed with the nursing staff and the day Dakins is for the large sacral ulceration. The patient's prognosis is extremely poor. Status: Acute (3) Noncompliance Status: Acute
[2017-04-09 16:56] LABS: Glucose,Whole Blood 90 mg/dL (75-99)
--- NOTE | 2017-04-09 17:41 | P.PN ---
Subjective Principal diagnosis: 56.-year-old male well-known to practice poorly controlled diabetic, with a known history of osteomyelitis and stage IV decubitus ulcer along along with history of vascular disease, along with bilateral AKA A. Also a long-standing history of opiate and heroine use and abuse originally came into the hospital via the alert emergency department with DKA and sepsis. Patient was originally admitted to the intensive care unit was aggressively resuscitated with IV fluid patient received a total of 3 L immediately and is currently 0.9 in and 200 hour. He was initially on an insulin drip. Is currently on sliding scale coverage. Most recent electrolytes showed bicarb of 18 anion gap of 11 creatinine of 1.2 with a BMI of 16 white count was 12.6 hemoglobin originally was 8.4 it's currently 7.3. Patient has a large sacral decub measuring approximately 9 cm x 8 cm that grossly necrotic exposed bone is noted. Dr. Becerra did debride the wound while patient was in the intensive care unit. Patient is currently awake alert vital signs are stable he is steadily afebrile tolerating diet no pulmonary complaints O2 sats are in the 90s to 100 100s on room air wound cultures from the buttocks are positive for Proteus mirabilis and enterococcus cellulitis the RE and yeast he is currently on daptomycin and Levaquin and micafungin. Urine is positive for Karina as well. Blood cultures revealed no growth. Glucose sugars have ranged between 73 and 202 today Dka resolved, aka bilat, large sacral decube weg grade iv , with sepsis Objective - Vital Signs Vital signs: Vital Signs Temp 97.8 F 04/09/17 14:49 Pulse 80 04/09/17 14:49 Resp 16 04/09/17 14:49 BP 149/89 04/09/17 14:49 Pulse Ox 98 04/09/17 14:49 Intake & Output 04/08/17 04/09/17 04/09/17 18:59 06:59 18:59 Intake Total 970 Output Total 2600 1600 1999 Balance -2600 630 Weight 44.217 kg Intake: Intake, IV Titration 250 Amount D5-0.45% NaCl with KCl 250 20Meq/l 1,000 ml @ 50 mls /hr IV .Q20H ROSA Rx#: [id number] Oral 100 Blood Product 620 Rc As-1 Unit 310 [id number] Output: Urine 2600 1600 2000 Uretheral (Castañeda) 900 Other: Voiding Method Indwelling Catheter Indwelling Catheter Indwelling Catheter - Exam General: [Patient awake, alert and oriented times 3. Patient in no acute distress.] HEENT: [PERRL. EOMI. No pharyngeal erythema or exudate.] Patient has poor oral hygiene is basically edentulous Neck: [No adenopathy.] Cardiac: [Heart regular in rate and rhythm. No S3. No S4. No clicks, rubs. No murmur.] Lungs: [Clear to auscultation bilaterally.] Abdomen: [No mass. No organomegaly. Bowel sounds presnt and normoactive in all 4 quadrants.] Extremes; patient has AKA's bilaterally Patient has a large sacral wound 19.0 x 8.0 cm in size of the depth is significant exposed bone is visualized the wound is grossly necrotic material Musculoskeletal: [No joint erythema, edema or tenderness.] Skin: [No rash.] Neurologic: [No lateralizing deficits. CN II - XII grossly intact.] Lymphatic: [No adenopathy.] - Labs CBC & Chem 7: 04/09/17 06:59 04/09/17 06:59 Labs: Abnormal Lab Results - Last 24 Hours (Table) 04/08/17 04/08/17 04/09/17 Range/Units 18:52 22:01 06:59 RBC 3.18 L (4.30-5.90) m/uL Hgb 9.2 L D (13.0-17.5) gm/dL Hct 28.7 L (39.0-53.0) % Sodium (137-145) mmol/L Chloride (98-107) mmol/L Carbon Dioxide (22-30) mmol/L Glucose (74-99) mg/dL POC Glucose (mg/dL) 114 H (75-99) mg/dL Magnesium (1.6-2.3) mg/dL Crossmatch See Detail 04/09/17 04/09/17 Range/Units 06:59 07:21 RBC (4.30-5.90) m/uL Hgb (13.0-17.5) gm/dL Hct (39.0-53.0) % Sodium 136 L (137-145) mmol/L Chloride 113 H (98-107) mmol/L Carbon Dioxide 18 L (22-30) mmol/L Glucose 104 H (74-99) mg/dL POC Glucose (mg/dL) 111 H (75-99) mg/dL Magnesium 1.4 L (1.6-2.3) mg/dL Crossmatch Microbiology - Last 24 Hours (Table) 04/05/17 19:47 Anaerobic Culture - Preliminary Buttock 04/05/17 17:55 Blood Culture - Preliminary Blood No Growth after 72 hours Assessment and Plan (1) DKA (diabetic ketoacidoses) Narrative/Plan: Patient is tolerating oral intake and is on a sliding scale with coverage Status: Acute (2) Osteomyelitis Narrative/Plan: Wound cultures from the buttock are positive for Proteus mirabilis, enterococcus cellulitis BITA and yeast Meds include daptomycin and Levaquin and micafungin urine is positive for Karina as well. Blood cultures reveal no growth Status: Acute (3) Sacral decubitus ulcer, stage III Narrative/Plan: Chronic coccygeal wound is 9 x 8 cm in size deep to the bone overlying tissue is erythematous with areas of necrosis) once Status: Acute (4) Sepsis Narrative/Plan: Wound cultures from buttocks are positive for Proteus mirabilis enterococcus [place] patient is currently on daptomycin and Levaquin and micafungin also urine is positive for Karina. Blood cultures reveal no growth Status: Acute Time with Patient: Greater than 30
[2017-04-09] MEDS: HYDROcodone/APAP 7.5-325MG 1 EACH TAB PO PRN ×2 (18:02→21:13)
[2017-04-09] MEDS: CALCIUM CARBONATE 500 MG CHEWABLE PO PRN (19:04)
[2017-04-09 20:21] LABS: Glucose,Whole Blood 129 mg/dL (75-99)
[2017-04-09] MEDS: ATORVASTATIN 40 MG TAB PO SCH (21:14)
[2017-04-09] MEDS: INSULIN GLARGINE 100 UNIT/ML 10 ML VIAL SQ SCH (21:15)
[2017-04-09] MEDS: QUEtiapine 200 MG TAB PO SCH (23:00)
[2017-04-10 02:17] LABS: Glucose,Whole Blood 203 mg/dL (75-99)
[2017-04-10] MEDS: INSULIN LISPRO (humaLOG) 300 UNIT/3 ML VIAL SQ SCH ×8 (02:37→22:18)
[2017-04-10] MEDS: HYDROcodone/APAP 7.5-325MG 1 EACH TAB PO PRN ×3 (05:06→21:55)
[2017-04-10 06:55] LABS: Glucose,Whole Blood 105 mg/dL (75-99)
[2017-04-10 07:33] LABS: Basophils % (A) 0 %; CHCM 31.8; Eosinophils # (A) 0.4 k/uL (0-0.7); Eosinophils % (A) 5 %; HCT 28.9 % (39.0-53.0); HDW 3.21; HGB 9.1 gm/dL (13.0-17.5); Hypochromasia Slight; Luc # (Auto) 0.06; Luc % (Auto) 1; Lymphocytes # (A) 1.8 k/uL (1.0-4.8); Lymphocytes % (A) 25 %; MCH 28.9 pg (25.0-35.0); MCHC 31.5 g/dL (31.0-37.0); MCV 91.8 fL (80.0-100.0); Mean Platelet Volume 7.8; Monocytes # (A) 0.2 k/uL (0-1.0); Monocytes % (A) 3 %; Neutrophils # (A) 4.7 k/uL (1.3-7.7); Neutrophils % (A) 66 %; RBC 3.15 m/uL (4.30-5.90); WBC 7.2 k/uL (3.8-10.6); WBC (Perox) 7.09
[2017-04-10 07:42] LABS: Anion Gap 6 mmol/L; Blood Urea Nitrogen 20 mg/dL (9-20); Calcium 8.4 mg/dL (8.4-10.2); Carbon Dioxide 20 mmol/L (22-30); Chloride 110 mmol/L (98-107); Glucose 97 mg/dL (74-99); Magnesium 1.7 mg/dL (1.6-2.3); Non-African American GFR(MDRD) >60 (>60 ml/min/1.73 sqM); Potassium 4.6 mmol/L (3.5-5.1); Sodium 136 mmol/L (137-145)
[2017-04-10] MEDS: LOSARTAN 25 MG TAB PO SCH (10:09)
[2017-04-10] MEDS: ASPIRIN 81 MG CHEW PO SCH (10:09)
[2017-04-10] MEDS: CARVEDILOL 6.25 MG TAB PO SCH ×2 (10:10→17:51)
[2017-04-10] MEDS: METHADONE 10 MG TAB PO SCH ×3 (10:11→23:50)
[2017-04-10] MEDS: GABAPENTIN 300 MG CAP PO SCH ×3 (10:11→21:57)
[2017-04-10] MEDS: HEPARIN SODIUM,PORCINE 5,000 UNIT/ML 1 ML VIAL SQ SCH ×3 (10:11→23:50)
[2017-04-10] MEDS: PANTOPRAZOLE 40 MG TABLET PO SCH (10:11)
[2017-04-10] MEDS: DULoxetine HCL 30 MG CAPSULE.DR PO SCH ×2 (10:11→21:56)
[2017-04-10] MEDS: LEVOFLOXACIN 750 MG TAB PO SCH (10:11)
[2017-04-10] MEDS: MICAFUNGIN 100 MG in SODIUM CHLORIDE 0.9% 100 ML IVPB SCH (10:12)
--- NOTE | 2017-04-10 10:47 | P.PN ---
Subjective Principal diagnosis: 56.-year-old male well-known to practice poorly controlled diabetic, with a known history of osteomyelitis and stage IV decubitus ulcer along along with history of vascular disease, along with bilateral AKA A. Also a long-standing history of opiate and heroine use and abuse originally came into the hospital via the alert emergency department with DKA and sepsis. Patient was originally admitted to the intensive care unit was aggressively resuscitated with IV fluid patient received a total of 3 L immediately and is currently 0.9 in and 200 hour. He was initially on an insulin drip. Is currently on sliding scale coverage. Most recent electrolytes showed bicarb of 18 anion gap of 11 creatinine of 1.2 with a BMI of 16 white count was 12.6 hemoglobin originally was 8.4 it's currently 7.3. Patient has a large sacral decub measuring approximately 9 cm x 8 cm that grossly necrotic exposed bone is noted. Dr. Becerra did debride the wound while patient was in the intensive care unit. Patient is currently awake alert vital signs are stable he is steadily afebrile tolerating diet no pulmonary complaints O2 sats are in the 90s to 100 100s on room air wound cultures from the buttocks are positive for Proteus mirabilis and enterococcus cellulitis the RE and yeast he is currently on daptomycin and Levaquin and micafungin. Urine is positive for Karina as well. Blood cultures revealed no growth. Accu-Chek was 105 today. Dka resolved, aka bilat, large sacral decube weg grade iv , with sepsis Objective - Vital Signs Vital signs: Vital Signs Temp 98.5 F 04/10/17 01:16 Pulse 81 04/10/17 01:16 Resp 16 04/10/17 04:00 BP 131/87 04/10/17 01:16 Pulse Ox 98 04/10/17 01:16 Intake & Output 04/09/17 04/10/17 04/10/17 18:59 06:59 18:59 Intake Total 236 890 240 Output Total 3100 1300 Balance -2864 -410 240 Weight 44.217 kg Intake: Oral 236 890 240 Output: Urine 3100 1300 Uretheral (Castañeda) 1300 Other: Voiding Method Indwelling Catheter Indwelling Catheter - Exam General: [Patient awake, alert and oriented times 3. Patient in no acute distress.] HEENT: [PERRL. EOMI. No pharyngeal erythema or exudate.] Patient has poor oral hygiene is basically edentulous Neck: [No adenopathy.] Cardiac: [Heart regular in rate and rhythm. No S3. No S4. No clicks, rubs. No murmur.] Lungs: [Clear to auscultation bilaterally.] Abdomen: [No mass. No organomegaly. Bowel sounds presnt and normoactive in all 4 quadrants.] Extremes; patient has AKA's bilaterally Patient has a large sacral wound 19.0 x 8.0 cm in size of the depth is significant exposed bone is visualized the wound is grossly necrotic material Musculoskeletal: [No joint erythema, edema or tenderness.] Skin: [No rash.] Neurologic: [No lateralizing deficits. CN II - XII grossly intact.] Lymphatic: [No adenopathy.] - Labs CBC & Chem 7: 04/10/17 06:49 04/10/17 06:49 Labs: Abnormal Lab Results - Last 24 Hours (Table) 04/09/17 04/10/17 04/10/17 Range/Units 20:19 02:16 06:49 RBC 3.15 L (4.30-5.90) m/uL Hgb 9.1 L (13.0-17.5) gm/dL Hct 28.9 L (39.0-53.0) % Sodium (137-145) mmol/L Chloride (98-107) mmol/L Carbon Dioxide (22-30) mmol/L POC Glucose (mg/dL) 129 H 203 H (75-99) mg/dL Phosphorus (2.5-4.5) mg/dL 04/10/17 04/10/17 Range/Units 06:49 06:51 RBC (4.30-5.90) m/uL Hgb (13.0-17.5) gm/dL Hct (39.0-53.0) % Sodium 136 L (137-145) mmol/L Chloride 110 H (98-107) mmol/L Carbon Dioxide 20 L (22-30) mmol/L POC Glucose (mg/dL) 105 H (75-99) mg/dL Phosphorus 5.0 H (2.5-4.5) mg/dL Microbiology - Last 24 Hours (Table) 04/05/17 19:47 Anaerobic Culture - Final Buttock 04/05/17 17:55 Blood Culture - Preliminary Blood No Growth after 96 hours Assessment and Plan (1) DKA (diabetic ketoacidoses) Narrative/Plan: Patient is tolerating oral intake and is on a sliding scale with coverage Status: Acute (2) Osteomyelitis Narrative/Plan: Wound cultures from the buttock are positive for Proteus mirabilis, enterococcus cellulitis BITA and yeast Meds include daptomycin and Levaquin and micafungin urine is positive for Karina as well. Blood cultures reveal no growth Status: Acute (3) Sacral decubitus ulcer, stage III Narrative/Plan: Chronic coccygeal wound is 9 x 8 cm in size deep to the bone overlying tissue is erythematous with areas of necrosis) once Status: Acute (4) Sepsis Narrative/Plan: Wound cultures from buttocks are positive for Proteus mirabilis enterococcus [place] patient is currently on daptomycin and Levaquin and micafungin also urine is positive for Karina. Blood cultures reveal no growth Status: Acute Time with Patient: Less than 30
[2017-04-10 11:40] LABS: Glucose,Whole Blood 166 mg/dL (75-99)
[2017-04-10] MEDS: SODIUM HYPOCHLORITE 0.5% 480 ML BOT MISCELLANE SCH ×2 (15:59→23:09)
[2017-04-10] MEDS: MULTIVITAMINS, THERA 1 EACH TAB PO SCH (16:32)
[2017-04-10 17:30] LABS: Glucose,Whole Blood 163 mg/dL (75-99)
[2017-04-10] MEDS: ATORVASTATIN 40 MG TAB PO SCH (21:55)
[2017-04-10] MEDS: QUEtiapine 200 MG TAB PO SCH (21:56)
[2017-04-10 22:07] LABS: Glucose,Whole Blood 107 mg/dL (75-99)
[2017-04-10] MEDS: INSULIN GLARGINE 100 UNIT/ML 10 ML VIAL SQ SCH (22:09)
[2017-04-11 02:03] LABS: Glucose,Whole Blood 245 mg/dL (75-99)
[2017-04-11] MEDS: INSULIN LISPRO (humaLOG) 300 UNIT/3 ML VIAL SQ SCH ×8 (02:15→21:47)
[2017-04-11 06:52] LABS: Glucose,Whole Blood 111 mg/dL (75-99)
[2017-04-11] MEDS: HYDROcodone/APAP 7.5-325MG 1 EACH TAB PO PRN ×4 (08:14→21:49)
[2017-04-11] MEDS: METHADONE 10 MG TAB PO SCH ×2 (08:15→15:42)
[2017-04-11] MEDS: HEPARIN SODIUM,PORCINE 5,000 UNIT/ML 1 ML VIAL SQ SCH ×2 (08:15→16:55)
[2017-04-11] MEDS: LEVOFLOXACIN 750 MG TAB PO SCH (08:16)
[2017-04-11] MEDS: PANTOPRAZOLE 40 MG TABLET PO SCH (08:16)
[2017-04-11] MEDS: LOSARTAN 25 MG TAB PO SCH (08:16)
[2017-04-11] MEDS: DULoxetine HCL 30 MG CAPSULE.DR PO SCH ×2 (08:16→21:49)
[2017-04-11] MEDS: GABAPENTIN 300 MG CAP PO SCH ×3 (08:16→21:49)
[2017-04-11] MEDS: MICAFUNGIN 100 MG in SODIUM CHLORIDE 0.9% 100 ML IVPB SCH (08:17)
[2017-04-11] MEDS: CARVEDILOL 6.25 MG TAB PO SCH ×2 (08:17→16:56)
[2017-04-11] MEDS: ASPIRIN 81 MG CHEW PO SCH (08:17)
[2017-04-11 11:10] LABS: Glucose,Whole Blood 91 mg/dL (75-99)
--- NOTE | 2017-04-11 12:27 | P.PN ---
Subjective Principal diagnosis: 56.-year-old male well-known to practice poorly controlled diabetic, with a known history of osteomyelitis and stage IV decubitus ulcer along along with history of vascular disease, along with bilateral AKA A. Also a long-standing history of opiate and heroine use and abuse originally came into the hospital via the alert emergency department with DKA and sepsis. Patient was originally admitted to the intensive care unit was aggressively resuscitated with IV fluid patient received a total of 3 L immediately and is currently 0.9 in and 200 hour. He was initially on an insulin drip. Is currently on sliding scale coverage. Most recent electrolytes showed bicarb of 18 anion gap of 11 creatinine of 1.2 with a BMI of 16 white count was 12.6 hemoglobin originally was 8.4 it's currently 7.3. Patient has a large sacral decub measuring approximately 9 cm x 8 cm that grossly necrotic exposed bone is noted. Dr. Becerra did debride the wound while patient was in the intensive care unit. Patient is currently awake alert vital signs are stable he is steadily afebrile tolerating diet no pulmonary complaints O2 sats are in the 90s to 100 100s on room air wound cultures from the buttocks are positive for Proteus mirabilis and enterococcus cellulitis the RE and yeast he is currently on daptomycin and Levaquin and micafungin. Urine is positive for Karina as well. Blood cultures revealed no growth. Accu-Chek was 111 today. Dka resolved, aka bilat, large sacral decube weg grade iv , with sepsis Objective - Vital Signs Vital signs: Vital Signs Temp 98.5 F 04/11/17 02:00 Pulse 86 04/11/17 08:00 Resp 18 04/11/17 08:00 BP 160/84 04/11/17 02:00 Pulse Ox 95 04/11/17 02:00 Intake & Output 04/10/17 04/11/17 04/11/17 18:59 06:59 18:59 Intake Total 440 300 300 Output Total 2100 1300 300 Balance -1660 -1000 0 Weight 44.217 kg Intake: Oral 440 300 300 Output: Urine 2100 1300 300 Uretheral (Castañeda) 1600 Other: Voiding Method Urinal Urinal # Voids 1 - Exam General: [Patient awake, alert and oriented times 3. Patient in no acute distress.] HEENT: [PERRL. EOMI. No pharyngeal erythema or exudate.] Patient has poor oral hygiene is basically edentulous Neck: [No adenopathy.] Cardiac: [Heart regular in rate and rhythm. No S3. No S4. No clicks, rubs. No murmur.] Lungs: [Clear to auscultation bilaterally.] Abdomen: [No mass. No organomegaly. Bowel sounds presnt and normoactive in all 4 quadrants.] Extremes; patient has AKA's bilaterally Patient has a large sacral wound 19.0 x 8.0 cm in size of the depth is significant exposed bone is visualized the wound is grossly necrotic material Musculoskeletal: [No joint erythema, edema or tenderness.] Skin: [No rash.] Neurologic: [No lateralizing deficits. CN II - XII grossly intact.] Lymphatic: [No adenopathy.] - Labs CBC & Chem 7: 04/10/17 06:49 04/10/17 06:49 Labs: Abnormal Lab Results - Last 24 Hours (Table) 04/10/17 04/10/17 04/11/17 Range/Units 17:21 22:03 01:54 POC Glucose (mg/dL) 163 H 107 H 245 H (75-99) mg/dL 04/11/17 Range/Units 06:46 POC Glucose (mg/dL) 111 H (75-99) mg/dL Microbiology - Last 24 Hours (Table) 04/05/17 17:55 Gram Stain - Final Buttock Wound Culture - Final Proteus mirabilis Enterococcus faecalis VRE Karina tropicalis 04/05/17 17:55 Blood Culture - Preliminary Blood No Growth after 120 hours Assessment and Plan (1) DKA (diabetic ketoacidoses) Narrative/Plan: Patient is tolerating oral intake and is on a sliding scale with coverage Status: Acute (2) Osteomyelitis Narrative/Plan: Wound cultures from the buttock are positive for Proteus mirabilis, enterococcus cellulitis BITA and yeast Meds include daptomycin and Levaquin and micafungin urine is positive for Karina as well. Blood cultures reveal no growth Status: Acute (3) Sacral decubitus ulcer, stage III Narrative/Plan: Chronic coccygeal wound is 9 x 8 cm in size deep to the bone overlying tissue is erythematous with areas of necrosis) once Status: Acute (4) Sepsis Narrative/Plan: Wound cultures from buttocks are positive for Proteus mirabilis enterococcus [place] patient is currently on daptomycin and Levaquin and micafungin also urine is positive for Karina. Blood cultures reveal no growth Status: Acute (5) Noncompliance Narrative/Plan: Long-standing history of noncompliance both his diabetes and narcotic pain medicines Status: Acute
[2017-04-11] MEDS: MULTIVITAMINS, THERA 1 EACH TAB PO SCH (12:30)
[2017-04-11] MEDS: SODIUM HYPOCHLORITE 0.5% 480 ML BOT MISCELLANE SCH ×2 (15:42→22:29)
[2017-04-11 17:07] LABS: Glucose,Whole Blood 177 mg/dL (75-99)
[2017-04-11] MEDS: CALCIUM CARBONATE 500 MG CHEWABLE PO PRN (17:45)
[2017-04-11 20:56] LABS: Glucose,Whole Blood 228 mg/dL (75-99)
[2017-04-11] MEDS: INSULIN GLARGINE 100 UNIT/ML 10 ML VIAL SQ SCH (21:46)
[2017-04-11] MEDS: QUEtiapine 200 MG TAB PO SCH (21:49)
[2017-04-11] MEDS: ATORVASTATIN 40 MG TAB PO SCH (21:49)
[2017-04-12] MEDS: METHADONE 10 MG TAB PO SCH ×3 (00:25→15:41)
[2017-04-12] MEDS: HEPARIN SODIUM,PORCINE 5,000 UNIT/ML 1 ML VIAL SQ SCH ×3 (00:25→15:41)
[2017-04-12 02:01] LABS: Glucose,Whole Blood 365 mg/dL (75-99)
[2017-04-12] MEDS: INSULIN LISPRO (humaLOG) 300 UNIT/3 ML VIAL SQ SCH ×7 (02:15→18:04)
[2017-04-12 07:07] LABS: Glucose,Whole Blood 188 mg/dL (75-99)
[2017-04-12] MEDS: PANTOPRAZOLE 40 MG TABLET PO SCH (08:19)
[2017-04-12] MEDS: DULoxetine HCL 30 MG CAPSULE.DR PO SCH (08:20)
[2017-04-12] MEDS: LEVOFLOXACIN 750 MG TAB PO SCH (08:20)
[2017-04-12] MEDS: CARVEDILOL 6.25 MG TAB PO SCH ×2 (08:20→17:59)
[2017-04-12] MEDS: LOSARTAN 25 MG TAB PO SCH (08:20)
[2017-04-12] MEDS: ASPIRIN 81 MG CHEW PO SCH (08:20)
[2017-04-12] MEDS: GABAPENTIN 300 MG CAP PO SCH ×2 (08:20→15:41)
[2017-04-12] MEDS: MICAFUNGIN 100 MG in SODIUM CHLORIDE 0.9% 100 ML IVPB SCH (08:24)
[2017-04-12 09:24] VITALS: PULSE 86
[2017-04-12] MEDS: SODIUM HYPOCHLORITE 0.5% 480 ML BOT MISCELLANE SCH (09:28)
[2017-04-12] MEDS: HYDROcodone/APAP 7.5-325MG 1 EACH TAB PO PRN ×2 (09:38→18:00)
[2017-04-12 11:27] LABS: Glucose,Whole Blood 139 mg/dL (75-99)
[2017-04-12] MEDS: MULTIVITAMINS, THERA 1 EACH TAB PO SCH (12:50)
--- NOTE | 2017-04-12 13:40 | P.DS ---
Providers Date of admission: 04/05/17 19:50 Expected date of discharge: 04/12/17 Attending physician: Jeffry Barcenas Consults: 04/05/17 19:53 Consult Physician Stat Consulting Provider: Farideh Masterson Consult Reason/Comments: ICU Management Do you want consulting provider notified?: Already Contacted 04/06/17 09:48 Consult Physician Routine Consulting Provider: Syed Becerra Consult Reason/Comments: sepsis Do you want consulting provider notified?: Yes Primary care physician: [facility] Course: Final diagnosis Diabetic ketoacidosis. Osteomyelitis stage IV sacral pressure ulcer. Sepsis. Noncompliance. Insulin Requiring diabetes mellitus. History of bilateral AKA Medical debility Patient was admitted with severe Elevated sugars. He was admitted to the intensive care unit and critical care was consulted. He was found to be hypothermic and in DKA. He was diagnosed with sepsis and was fluid rehydrated. He remained on IV antibiotics and oral antibiotics under Dr. Becerra's care. He is found to have an early pneumonia. He was transferred to the floor after some improvement. He has been in and out of care facilities after hospitalizations for sacral wound. 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 He is very noncompliant. By April 12 he improved enough to be discharged. Dr. Becerra will Recommend the antibiotics. He will all up with a caregiver and home nursing as previously discussed and scheduled. Compliance with his appointments and healthcare were reinforced to him today. Patient Condition at Discharge: Fair Plan - Discharge Summary New Discharge Prescriptions: New Levofloxacin [Levaquin] 750 mg PO DAILY #10 tab Continue Carvedilol [Coreg] 6.25 mg PO BID Gabapentin [Neurontin] 300 mg PO TID Omeprazole 20 mg PO DAILY Multivitamins, Thera [Multivitamin (formulary)] 1 tab PO DAILY Methadone [Dolophine] 10 mg PO Q8HR #21 tab Insulin Detemir [Levemir] 38 unit SQ HS Atorvastatin [Lipitor] 40 mg PO HS Aspirin 81 mg PO DAILY chew Calcium Carbonate [Tums] 500 mg PO TID PRN #0 chew PRN Reason: Heartburn Doxycycline Monohydrate [Monodox] 100 mg PO Q12HR #28 cap Collagenase [Santyl] 1 applic TOPICAL DAILY DULoxetine HCL [Cymbalta] 30 mg PO BID hydrALAZINE HCL [Apresoline] 50 mg PO TID Insulin Glargine [Lantus] 38 unit SQ DAILY INSULIN LISPRO (humaLOG) [humaLOG (formulary)] 8 units SQ AC-TID Losartan Potassium 25 mg PO DAILY Discontinued QUEtiapine [SEROquel] 200 mg PO HS Discharge Medication List Carvedilol [Coreg] 6.25 mg PO BID 06/13/14 [History] Gabapentin [Neurontin] 300 mg PO TID 01/28/16 [History] Omeprazole 20 mg PO DAILY 06/12/16 [History] Multivitamins, Thera [Multivitamin (formulary)] 1 tab PO DAILY 10/13/16 [History ] Methadone [Dolophine] 10 mg PO Q8HR #21 tab 11/12/16 [Rx] Insulin Detemir [Levemir] 38 unit SQ HS 01/14/17 [History] Atorvastatin [Lipitor] 40 mg PO HS 02/04/17 [History] Aspirin 81 mg PO DAILY chew 02/10/17 [Rx] Calcium Carbonate [Tums] 500 mg PO TID PRN #0 chew 02/10/17 [Rx] Doxycycline Monohydrate [Monodox] 100 mg PO Q12HR #28 cap 04/01/17 [Rx] Collagenase [Santyl] 1 applic TOPICAL DAILY 04/05/17 [History] DULoxetine HCL [Cymbalta] 30 mg PO BID 04/06/17 [History] INSULIN LISPRO (humaLOG) [humaLOG (formulary)] 8 units SQ AC-TID 04/06/17 [ History] Insulin Glargine [Lantus] 38 unit SQ DAILY 04/06/17 [History] Losartan Potassium 25 mg PO DAILY 04/06/17 [History] hydrALAZINE HCL [Apresoline] 50 mg PO TID 04/06/17 [History] Levofloxacin [Levaquin] 750 mg PO DAILY #10 tab 04/12/17 [Rx] Follow up Appointment(s)/Referral(s): [facility], [NON-STAFF] - Brent Chong MD [Primary Care Provider] - 1-2 days Discharge Disposition: HOME WITH HOME HEALTH SERVICES
[2017-04-12 14:30] VITALS: BP 104/67; RESP 17; TEMP 97.6
--- NOTE | 2017-04-12 15:47 | CDI ---
In responding to this query, please exercise your independent professional judgment. The [facility] Coding Staff and Clinical Documentation Specialists appreciate your assistance in clarifying documentation, maintaining compliance with coding guidelines, accurately documenting patients condition and capturing severity of illness. The fact that a question is asked does not imply that any particular answer is desired or expected. Communication forms are a method of clarifying documentation and are not made part of the Legal Health Record. Thank you in advance for your clarification. Last Revision, December 2015 Suyapa Mata [address] [facility] [place] [address] Documentation Clarification Form 2nd request Date: 04/07/2017 11:44:00 AM From: Kathy Triana Admit Date: 04/05/2017 7:50:00 PM Patient Name: Ambrose Berry Visit Number: [id number] Dr. Chong Hypotension is documented and requires further specificity Patient history/risk factors: Hepatitis C viral infection of the liver, DKA, Sepsis, Stage 4 sacral decub, malnourishment Clinical Indicators: 04/07 Pulmonary Progress Note: "Since his admission to the ICU, the patient was aggressively resuscitated IV fluids and the patient received a total of 3 L immediately and currently he is on 0.9 normal saline at the rate of 200 mL an hour. The patient remained hypotensive and currently is on 10 mcgs of Levo fed. Sepsis with secondary hypotension, failed to respond to fluid resuscitation and pressors." Vitals: Temp 92.4, hr 69, RR 24, B/P 98/73, spo1 100% ra Treatment: IVF BOLUS 4L, followed by 200cc/hr Norepinephrine Drip titrate for B/P In your professional opinion, can you please specify the type of shock if known ? Septic Shock o Suspected or known causative organism o Any associated organ failure Cardiogenic Shock o Cause Hypovolemic Shock o Cause Other, please specify Unable to determine Please document in your progress notes and discharge summary in order to capture severity of illness and risk of mortality. Include clinical findings that support your diagnosis. FYI: Press F11 to launch patient chart. Place X here if this finding has no clinical significance, is not applicable or if you are not able to provide any additional documentation. MTDD
--- NOTE | 2017-04-12 15:51 | CDI ---
In responding to this query, please exercise your independent professional judgment. The [facility] Coding Staff and Clinical Documentation Specialists appreciate your assistance in clarifying documentation, maintaining compliance with coding guidelines, accurately documenting patients condition and capturing severity of illness. The fact that a question is asked does not imply that any particular answer is desired or expected. Communication forms are a method of clarifying documentation and are not made part of the Legal Health Record. Thank you in advance for your clarification. Last Revision, September 2015 Suyapa Mata [address] [facility] [place] [address] Documentation Clarification Form 2nd request Date: 04/07/2017 12:04:00 PM From: Kathy Triana RN, CCDS Admit Date: 04/05/2017 7:50:00 PM Patient Name: Ambrose Berry Visit Number: [id number] Dr. Chong Malnourishment has been documented in Attending Progress Notes. History/Risk Factors: Chronic pressure ulcer stage 4 to sacrum, bilateral lower extremities amputations, dka, osteomyelitis, sacral decub stage 3, sepsis Clinical Indicators: 04/06 H&P: " General: [Patient awake, alert and oriented times 3. Patient in acute distress, cachectic emaciated malnourished arousable." 04/06 Pulmonary progress note: Very thin, cachectic, emaciated, sick looking, malnourished patient who looks way above his age. " Labs: Albumin/ Pre albumin/Total Protein: Current BMI: 16.2 Total protein 62 Albumin 3.3 Treatment: Dietary Consult: 04/06 completed Supplements/TPN: NPO status Lab monitoring: as ordered In your professional opinion, can you please clarify if these findings signify one of the following conditions? Mild Protein-Calorie Malnutrition Moderate Protein-Calorie Malnutrition Severe Protein-Calorie Malnutrition Other condition, please specify Unable to determine Please document in your progress notes and discharge summary in order to capture severity of illness and risk of mortality. Include clinical findings that support your diagnosis. FYI: Press F11 to launch patient chart. Place X here if this finding has no clinical significance, is not applicable or if you are not able to provide any additional documentation. OSEI
[2017-04-12 16:20] LABS: Glucose,Whole Blood 143 mg/dL (75-99)
--- NOTE | 2017-04-12 20:28 | P.PN ---
Subjective Principal diagnosis: Sepsis 56-year-old male well-known to the infectious disease service due to his many hospitalizations regarding bouts of sepsis relating to the patient's uncontrolled diabetes, urinary infections, and chronic coccyx ulceration. 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 Patient now presents from his apartment weak and ill. At presentation blood sugar was greater than 1200, patient had tanya diabetic ketoacidosis. Evidence of underlying infection with urinary infection and worsening of his coccyx ulceration. The patient has had fluid resuscitation, and short period of the xiphoid was given because of his hypotension. This is now off. Was able to sit up and eat part of this light dinner tonight, denies nausea or emesis. Does relate that his oral cavity is sore and it hurts a bit to swallow. He feels poorly but better than earlier. His prior confusion also seems to be improved. Patient appears to be a complete loss as to how he has gotten so sick again. We discussed that he routinely gets admitted with diabetic ketoacidosis with significant illness and then sepsis. There is a significant mismatch between his knowledge, his disease state, and how he takes care of himself. The most recent series of events illustrates clearly his inability to manage his sugars. Has slight improvement today. Objective - Vital Signs Vital signs: Vital Signs Temp 97.6 F 04/12/17 14:29 Pulse 86 04/12/17 14:29 Resp 17 04/12/17 16:00 BP 104/67 04/12/17 14:29 Pulse Ox 95 04/12/17 14:29 Intake & Output 04/12/17 04/12/17 04/13/17 06:59 18:59 06:59 Intake Total 400 1900 Balance 400 1900 Intake: Oral 400 1900 Other: Voiding Method Urinal # Voids 1 2 - Exam This is a 56-year-old emaciated male. Sitting up at 40. Mentation is improved from earlier. HEENT: Head is atraumatic, normocephalic. Pupils equal, round. Sclerae is anicteric. Mucous membranes of the mouth are dry. Thrush is noted. Dentition is in poor order. NECK: Supple. No JVD. No lymphadenopathy. No thyromegaly. LUNGS: Coarse sounds bilaterally with poor inspiratory effort. No intercostal retractions. HEART: Regular rate and rhythm. No murmur. ABDOMEN: Soft. Bowel sounds are present. No masses. No tenderness. EXTREMITIES: Bilateral lower extremity amputations noted. Evidence of the open ulceration to the right lateral residual limb. Present 2 x 2 by 0.2 cm. NEUROLOGICAL: Patient is now awake and alert. Is able to state my name He does not remember yesterday well. The coccyx ulceration measures at 8 x7 x 0.5 cm. with purulence and necrosis especially at the 3 o'clock position there is also a small ulceration of 2 x 2 x 0.2 cm on the right upper thigh posterior - Labs CBC & Chem 7: 04/10/17 06:49 04/10/17 06:49 Labs: Abnormal Lab Results - Last 24 Hours (Table) 04/11/17 04/12/17 04/12/17 Range/Units 20:52 01:58 07:04 POC Glucose (mg/dL) 228 H 365 H 188 H (75-99) mg/dL 04/12/17 04/12/17 Range/Units 11:25 16:18 POC Glucose (mg/dL) 139 H 143 H (75-99) mg/dL Microbiology - Last 24 Hours (Table) 04/05/17 17:55 Blood Culture - Final Blood No Growth after 144 hours Laboratory Results WBC 7.2 k/uL (3.8-10.6) 04/10/17 06:49 RBC 3.15 m/uL (4.30-5.90) L 04/10/17 06:49 Hgb 9.1 gm/dL (13.0-17.5) L 04/10/17 06:49 Hct 28.9 % (39.0-53.0) L 04/10/17 06:49 MCV 91.8 fL (80.0-100.0) 04/10/17 06:49 MCH 28.9 pg (25.0-35.0) 04/10/17 06:49 MCHC 31.5 g/dL (31.0-37.0) 04/10/17 06:49 RDW 15.0 % (11.5-15.5) 04/10/17 06:49 Plt Count 361 k/uL (150-450) 04/10/17 06:49 Neutrophils % 66 % 04/10/17 06:49 Lymphocytes % 25 % 04/10/17 06:49 Monocytes % 3 % 04/10/17 06:49 Eosinophils % 5 % 04/10/17 06:49 Basophils % 0 % 04/10/17 06:49 Neutrophils # 4.7 k/uL (1.3-7.7) 04/10/17 06:49 Lymphocytes # 1.8 k/uL (1.0-4.8) 04/10/17 06:49 Monocytes # 0.2 k/uL (0-1.0) 04/10/17 06:49 Eosinophils # 0.4 k/uL (0-0.7) 04/10/17 06:49 Basophils # 0.0 k/uL (0-0.2) 04/10/17 06:49 Hypochromasia Slight 04/10/17 06:49 Poikilocytosis Slight 04/09/17 06:59 Macrocytosis Slight 04/05/17 17:55 VBG pH 7.11 (7.31-7.41) L* 04/05/17 17:55 VBG pCO2 22 mmHg (37-51) L 04/05/17 17:55 VBG HCO3 7 mmol/L (24-28) L* 04/05/17 17:55 Sodium 136 mmol/L (137-145) L 04/10/17 06:49 Potassium 4.6 mmol/L (3.5-5.1) 04/10/17 06:49 Chloride 110 mmol/L (98-107) H 04/10/17 06:49 Carbon Dioxide 20 mmol/L (22-30) L 04/10/17 06:49 Anion Gap 6 mmol/L 04/10/17 06:49 BUN 20 mg/dL (9-20) 04/10/17 06:49 Creatinine 0.67 mg/dL (0.66-1.25) 04/10/17 06:49 Est GFR (MDRD) Af Amer >60 (>60 ml/min/1.73 sqM) 04/10/17 06:49 Est GFR (MDRD) Non-Af >60 (>60 ml/min/1.73 sqM) 04/10/17 06:49 Glucose 97 mg/dL (74-99) 04/10/17 06:49 POC Glucose (mg/dL) 143 mg/dL (75-99) H 04/12/17 16:18 POC Glu Patient Services Specialist ID Laura Recinos 04/12/17 16:[address] Glu mg/dL 303 mg/dL 04/06/17 16:22 Hemoglobin A1c 12.2 % (4.2-6.1) H 04/06/17 16:22 Osmolality 359 mosm/kg (280-301) H* 04/05/17 17:55 Plasma Lactic Acid Ayo 1.2 mmol/L (0.7-2.0) 04/05/17 23:33 Calcium 8.4 mg/dL (8.4-10.2) 04/10/17 06:49 Phosphorus 5.0 mg/dL (2.5-4.5) H 04/10/17 06:49 Magnesium 1.7 mg/dL (1.6-2.3) 04/10/17 06:49 Total Bilirubin 0.5 mg/dL (0.2-1.3) 04/05/17 19:45 AST 12 U/L (17-59) L 04/05/17 19:45 ALT 25 U/L (21-72) 04/05/17 19:45 Alkaline Phosphatase 97 U/L (38-126) 04/05/17 19:45 Total Protein 6.2 g/dL (6.3-8.2) L 04/05/17 19:45 Albumin 3.3 g/dL (3.5-5.0) L 04/05/17 19:45 Urine Color Colorless 04/05/17 20:25 Urine Appearance Clear (Clear) 04/05/17 20:25 Urine pH 5.0 (5.0-8.0) 04/05/17 20:25 Ur Specific [place] 1.014 (1.001-1.035) 04/05/17 20:25 Urine Protein Trace (Negative) H 04/05/17 20:25 Urine Glucose (UA) 4+ (Negative) H 04/05/17 20:25 Urine Ketones 2+ (Negative) H 04/05/17 20:25 Urine Blood Negative (Negative) 04/05/17 20:25 Urine Nitrite Negative (Negative) 04/05/17 20:25 Urine Bilirubin Negative (Negative) 04/05/17 20:25 Urine Urobilinogen <2.0 mg/dL (<2.0) 04/05/17 20:25 Ur Leukocyte Esterase Moderate (Negative) H 04/05/17 20:25 Urine RBC 1 /hpf (0-5) 04/05/17 20:25 Urine WBC 71 /hpf (0-5) H 04/05/17 20:25 Urine WBC Clumps Many /hpf (None) H 04/05/17 20:25 Ur Squamous Epith Cells <1 /hpf (0-4) 04/05/17 20:25 Amorphous Sediment Occasional /hpf (None) H 04/05/17 20:25 Urine Bacteria Rare /hpf (None) H 04/05/17 20:25 Urine Mucus Rare /hpf (None) H 04/05/17 20:25 Urine Yeast (Budding) Few /hpf (None) H 04/05/17 20:25 Acetone, Qual Positive (Negative) 04/05/17 17:55 Blood Type A Positive 04/08/17 18:52 Blood Type Recheck No 04/08/17 18:52 Antibody Screen NEGATIVE 04/08/17 18:52 Crossmatch See Detail 04/08/17 18:52 Spec Expiration Date 04/11/2017 - 0227 04/08/17 18:52 Microbiology 04/05/17 17:55 Blood Blood Culture - Final No Growth after 144 hours 04/05/17 17:55 Buttock Gram Stain - Final 04/05/17 17:55 Buttock Wound Culture - Final Proteus mirabilis Enterococcus faecalis VRE Karina tropicalis 04/05/17 19:47 Buttock Anaerobic Culture - Final 04/06/17 10:40 Urine,Catheterized Urine Culture - Final Karina albicans Assessment and Plan (1) DKA (diabetic ketoacidoses) Status: Acute (2) Sepsis Narrative/Plan: 56-year-old male presents to emergency center with altered mental status feeling ill. With evidence of recurrence of his ketotic hyperglycemia. Initial blood sugar 1359, osmolality 359, venous pH 7.11. Patient is now had some improvement after fluid resuscitation, improvement of blood sugar, and some vasopressor support. The left arm is marked in trimming caser was difficulty with extravasation of the vasopressor but no ulceration is seen at this time. Patient's mentation is improving. Is having a discussion ensues as far as his current course. He believes he is doing things well at home. However his illness proves that he is not taking care of himself. There is distinct mismatch between how he cares for himself, what he eats, and who takes care of his insulin, all of which result in the current difficulties. As his blood sugars increase he then developed secondary infections. Appears to have a urinary tract infection at this time. Pulmonary has seen and there is worry about pneumonia but his pulmonary status is about his baseline. The coccyx ulceration is with a large area of necrosis that will require more extensive debridement when he is healthier. The cultures are reviewed There is evidence of a multidrug resistant pseudomonas aeruginosa that will not be treatable at this time. The other pathogens that include VRE and MRSA will be treated with daptomycin. Patient's thrush will be treated with the micafungin that has been started Repeat cultures are revealing evidence of Proteus mirabilis that is not significantly resistant as well as the VRE. As well as yeast. Levaquin is being utilized to treat the Proteus and micafungin for the yeast. Since the patient is being transitioned to home we'll alter micafungin to fluconazole for the course of therapy until he follows up in the wound healing Center. Wound care is reviewed with the nursing staff and the Dakins is for the large sacral ulceration. The patient's prognosis is extremely poor. Patient seems to be showing some understanding about the blood sugar of nearly 1400 and that could have resulted in his demise. Is willing to try some different eating techniques at home. Status: Acute (3) Noncompliance Status: Acute
--- NOTE | 2017-04-14 17:19 | CDI ---
In responding to this query, please exercise your independent professional judgment. The [facility] Coding Staff and Clinical Documentation Specialists appreciate your assistance in clarifying documentation, maintaining compliance with coding guidelines, accurately documenting patients condition and capturing severity of illness. The fact that a question is asked does not imply that any particular answer is desired or expected. Communication forms are a method of clarifying documentation and are not made part of the Legal Health Record. Thank you in advance for your clarification. Last Revision, September 2015 Suyapa Mata [address] [facility] [place] [address] Documentation Clarification Form Date: 04/14/2017 5:12:00 PM From: Roseann Cody [facility] & Anika Pierce, Power Plant Superintendent & Anika = [phone] Admit Date: 04/05/2017 7:50:00 PM Patient Name: Ambrose Berry Visit Number: [id number] Discharge Date: 04-12-17 Dr. Brent Chong A diagnosis of anemia lacks specificity to accurately reflect your patients severity of condition and clarification is needed. Patient history/risk factors: septic shock, DKA, sacral ulcer IV, smoker, chronic anemia, noncompliance, moderate protein calorie malnutrition, UTI, diabetic peripheral neuropathy, diabetic PVD, viral hepatitis C, history of gastric ulcer Clinical Indicators: Hemoglobin: 04-05-17 = 9.5 and dropped to 7.3 on 04-08-17 Hematocrit: 04-05-17 = 34.6 and dropped to 23.3 on 04-08-17 Treatment: Transfusion of one unit PRBC on 04-08-17 (In order to capture the severity of condition, please clarify the type of anemia and etiology if known: Acute blood loss anemia Acute on chronic blood loss anemia Chronic blood loss anemia Iron deficiency anemia Hemolytic anemia Drug induced anemia Anemia due to malignancy Nutritional anemia Anemia of chronic kidney disease Unable to determine Other, please specify Please document in your progress notes and discharge summary in order to capture severity of illness and risk of mortality. Include clinical findings that support your diagnosis. FYI: Press F11 to launch patient chart. Place X here if this finding has no clinical significance, is not applicable or if you are not able to provide any additional documentation. MTDD
--- NOTE | 2017-04-14 17:46 | CDI ---
In responding to this query, please exercise your independent professional judgment. The [facility] Coding Staff and Clinical Documentation Specialists appreciate your assistance in clarifying documentation, maintaining compliance with coding guidelines, accurately documenting patients condition and capturing severity of illness. The fact that a question is asked does not imply that any particular answer is desired or expected. Communication forms are a method of clarifying documentation and are not made part of the Legal Health Record. Thank you in advance for your clarification. Last Revision, December 2015 Suyapa Mata [address] [facility] [place] [address] Documentation Clarification Form Date: 04/14/2017 5:29:00 PM From: Roseann Cody [facility] & Anika Pierce, Potato [employer] & Anika = [phone] Admit Date: 04/05/2017 7:50:00 PM Patient Name: Ambrose Berry Visit Number: [id number] Discharge Date: 04-12-17 Dr. Brent Chong Stage II ulcer of right buttock is documented in nursing wound care notes. Please confirm this, yes or no or other. (see below) Patient history/risk factors: Septic shock, moderate protein calorie malnutrition, BMI of 16.2, DKA, debility, noncompliance, bilateral AKA, osteomyelitis, other pressure ulcers, hypothermia, smoker, history of MRSA, diabetic peripheral neuropathy, UTI, diabetic PVD, chronic anemia. Culture collected 04-05-17 of R buttock = Proteus mirabilis, Enterococcus faecalis VRE, Karina tropicalis. Final report on 04-11-17 Wound assessment: 04-06-17 "right buttock stage II, no drainage, distinct wound margins, 1x1 cn, 25-50% granulation." Photo taken. Medication: Vancomycin IV, Vibramycin IV, Levofloxcin IV. Home on Levofloxacin 750 mg p.o. #10 & Doxycycline 100 gm p.o. #28 Consults: Dr. Becerra In your professional opinion, can the etiology and severity of the wound be further specified as one of the following? Etiology: Non-pressure chronic ulcer due to diabetes Non-pressure chronic ulcer due to arterial insufficiency Non-pressure chronic ulcer due to venous insufficiency Non-pressure chronic ulcer due to trauma Other, Please specify Unable to determine Severity: Limited to breakdown of skin With fat layer exposed With necrosis of muscle With necrosis of bone Other, Please specify Unable to determine Please document in your progress notes and discharge summary in order to capture severity of illness and risk of mortality. Include clinical findings that support your diagnosis. FYI: Press F11 to launch patient chart Place X here if this finding has no clinical significance, is not applicable or if you are not able to provide any additional documentation. MTDD
== END 2017-04-12 20:20 | disposition home health service (06) | DRG 871 ==
LOC: EC 17:20 → 6ICU 19:50 → 3SUR 04-07 23:01
PROVIDERS: ADMIT Family Medicine; ATTEND Family Medicine
PROC: 30233N1 Transfusion of Nonautologous Red Blood Cells into Peripheral Vein, Percutaneous Approach (ICD-10-PCS; principal; 2017-04-08)
DX: B37.7 Candidal sepsis (principal); R65.21 Severe sepsis with septic shock; R64 Cachexia; E13.10 Other specified diabetes mellitus with ketoacidosis without coma; L89.154 Pressure ulcer of sacral region, stage 4; J18.9 Pneumonia, unspecified organism; E44.0 Moderate protein-calorie malnutrition; I95.9 Hypotension, unspecified; E11.42 Type 2 diabetes mellitus with diabetic polyneuropathy; J44.0 Chronic obstructive pulmonary disease with (acute) lower respiratory infection; M86.9 Osteomyelitis, unspecified; Z68.1 Body mass index [BMI] 19.9 or less, adult; N39.0 Urinary tract infection, site not specified; L97.111 Non-pressure chronic ulcer of right thigh limited to breakdown of skin; E11.51 Type 2 diabetes mellitus with diabetic peripheral angiopathy without gangrene; E11.69 Type 2 diabetes mellitus with other specified complication; Z89.611 Acquired absence of right leg above knee; B96.4 Proteus (mirabilis) (morganii) as the cause of diseases classified elsewhere; I25.10 Atherosclerotic heart disease of native coronary artery without angina pectoris; B95.2 Enterococcus as the cause of diseases classified elsewhere; E11.622 Type 2 diabetes mellitus with other skin ulcer; F11.21 Opioid dependence, in remission; R68.0 Hypothermia, not associated with low environmental temperature; B19.20 Unspecified viral hepatitis C without hepatic coma; G43.909 Migraine, unspecified, not intractable, without status migrainosus; B37.0 Candidal stomatitis; R00.0 Tachycardia, unspecified; K02.9 Dental caries, unspecified; G89.29 Other chronic pain; F17.200 Nicotine dependence, unspecified, uncomplicated; D64.9 Anemia, unspecified; I25.2 Old myocardial infarction; F32.9 Major depressive disorder, single episode, unspecified; Z71.3 Dietary counseling and surveillance; Z91.19 Patient's noncompliance with other medical treatment and regimen; Z16.24 Resistance to multiple antibiotics; Z80.0 Family history of malignant neoplasm of digestive organs; Z82.49 Family history of ischemic heart disease and other diseases of the circulatory system; Z79.4 Long term (current) use of insulin; Z89.612 Acquired absence of left leg above knee; Z79.899 Other long term (current) drug therapy; Z80.8 Family history of malignant neoplasm of other organs or systems; Z98.890 Other specified postprocedural states; Z88.1 Allergy status to other antibiotic agents; Z88.5 Allergy status to narcotic agent; Z90.49 Acquired absence of other specified parts of digestive tract; Z87.11 Personal history of peptic ulcer disease; Z16.22 Resistance to vancomycin related antibiotics; Z86.14 Personal history of Methicillin resistant Staphylococcus aureus infection; Z91.14 Patient's other noncompliance with medication regimen; Z86.19 Personal history of other infectious and parasitic diseases
CPT/HCPCS: 36415; 71010; 80048; 80051; 80053; 81001; 82009; 82565; 82803; 82947; 83036; 83605; 83735; 83930; 84100; 84520; 85025; 86850; 86900; 86901; 86920; 87040; 87070; 87075; 87077; 87086; 87186; 87205; 93005; 96361; 96365; 96366; 96375; 96376; 99285

== ENCOUNTER 2017-04-21 15:17 | Inpatient (IN) | payer OTHER ==
[2017-04-21 15:55] LABS: Glucose,Whole Blood 48 mg/dL (75-99)
[2017-04-21] MEDS ORDERED: LEVOFLOXACIN 750MG-D5W PMX 750 MG in DEXTROSE/WATER 1 150ML.BAG IVPB STA (15:56)
[2017-04-21] MEDS ORDERED: DEXTROSE 50%-WATER 50 ML SYRINGE IVP STA (15:57)
[2017-04-21 16:18] LABS: Glucose,Whole Blood 124 mg/dL (75-99)
[2017-04-21 16:42] LABS: Basophils % (A) 0 %; CHCM 30.7; Eosinophils % (A) 0 %; HCT 32.9 % (39.0-53.0); HDW 3.07; HGB 9.8 gm/dL (13.0-17.5); Hypochromasia Moderate; Luc # (Auto) 0.09; Luc % (Auto) 1; Lymphocytes # (A) 1.1 k/uL (1.0-4.8); Lymphocytes % (A) 12 %; MCH 28.4 pg (25.0-35.0); MCHC 29.8 g/dL (31.0-37.0); Mean Platelet Volume 6.9; Monocytes # (A) 0.3 k/uL (0-1.0); Monocytes % (A) 3 %; Neutrophils # (A) 7.8 k/uL (1.3-7.7); Neutrophils % (A) 83 %; RBC 3.46 m/uL (4.30-5.90); RDW 14.6 % (11.5-15.5); WBC 9.3 k/uL (3.8-10.6); WBC (Perox) 9.39
[2017-04-21 16:50] LABS: Prothrombin Time 10.5 sec (9.0-12.0)
[2017-04-21 16:51] LABS: ALT 33 U/L (21-72); AST 26 U/L (17-59); Alkaline Phosphatase 90 U/L (38-126); Anion Gap 11 mmol/L; Blood Urea Nitrogen 16 mg/dL (9-20); Calcium 9.6 mg/dL (8.4-10.2); Carbon Dioxide 25 mmol/L (22-30); Chloride 105 mmol/L (98-107); Non-African American GFR(MDRD) >60 (>60 ml/min/1.73 sqM); Potassium 4.6 mmol/L (3.5-5.1); Sodium 141 mmol/L (137-145); Total Bilirubin 0.4 mg/dL (0.2-1.3); Total Protein 6.6 g/dL (6.3-8.2)
[2017-04-21 16:54] LABS: Glucose 41 mg/dL (74-99)
--- NOTE | 2017-04-21 17:02 | CT ---
EXAMINATION TYPE: CT brain michele ayala con DATE OF EXAM: 04/21/2017 COMPARISON: CT brain 11/06/2016 HISTORY: Altered mental status. Found unconscious. CT DLP: 1423.60 mGycm Automated exposure control for dose reduction was used. TECHNIQUE: CT scan of the head and cervical spine are performed without contrast. FINDINGS: Ventricles and sulci are normal for age. There is no mass effect nor midline shift. There is no sign of intracranial hemorrhage. The calvarium is intact. The cervical vertebra have normal alignment. There is some spurring of the endplates at C5-6. Facet j oints are intact. Skull base is intact. There is no evidence for fracture. IMPRESSION: There is spondylosis of C5-6. No fracture. Negative CT scan of the brain. Brain is stable compared to old exam.
[2017-04-21] MEDS ORDERED: IV VANCOMYCIN PER PHARMACY 1 EACH MISC MISCELLANE PRN (17:10)
--- NOTE | 2017-04-21 17:10 | ED ---
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 Patient is brought into the emergency department today because he fell out of his chair and was syncopal according to family. Patient had a 37 glucose 1 EMS arrived. Patient also has a large decubitus wound that he is going to the wound center for and they have suggested surgery to help heal the wound. When the patient arrived via rectal temperature of 94. Patient denies chest pain difficulty breathing or shortness of breath per patient denies any cough. Patient denies any abdominal pain patient denies any nausea vomiting diarrhea (Will Simeon) - Related Data Home Medications Medication Instructions Recorded Confirmed Carvedilol [Coreg] 6.25 mg PO BID 06/13/14 04/21/17 Gabapentin [Neurontin] 300 mg PO TID 01/28/16 04/21/17 Omeprazole 20 mg PO DAILY 06/12/16 04/21/17 Multivitamins, Thera [Multivitamin 1 tab PO DAILY 10/13/16 04/21/17 (formulary)] Insulin Detemir [Levemir] 38 unit SQ HS 01/14/17 04/21/17 Atorvastatin [Lipitor] 40 mg PO HS 02/04/17 04/21/17 Collagenase [Santyl] 1 applic TOPICAL DAILY 04/05/17 04/21/17 DULoxetine HCL [Cymbalta] 30 mg PO BID 04/06/17 04/21/17 INSULIN LISPRO (humaLOG) [humaLOG 8 units SQ AC-TID 04/06/17 04/21/17 (formulary)] Insulin Glargine [Lantus] 38 unit SQ DAILY 04/06/17 04/21/17 Losartan Potassium 25 mg PO DAILY 04/06/17 04/21/17 hydrALAZINE HCL [Apresoline] 50 mg PO TID 04/06/17 04/21/17 Previous Rx's Medication Instructions Recorded Methadone [Dolophine] 10 mg PO Q8HR #21 tab 11/12/16 Aspirin 81 mg PO DAILY chew 02/10/17 Calcium Carbonate [Tums] 500 mg PO TID PRN #0 chew 02/10/17 Doxycycline Monohydrate [Monodox] 100 mg PO Q12HR #28 cap 04/01/17 Levofloxacin [Levaquin] 750 mg PO DAILY #10 tab 04/12/17 Allergies Allergy/AdvReac Type Severity Reaction Status Date / Time piperacillin [From Zosyn] Allergy Severe Dyspnea Verified 04/21/17 15:30 tazobactam [From Zosyn] Allergy Severe Dyspnea Verified 04/21/17 15:30 tramadol Allergy Unknown Verified 04/21/17 15:30 fentanyl AdvReac Lightheaded Verified 04/21/17 15:30 ketorolac tromethamine AdvReac Nausea Verified 04/21/17 15:30 [From Toradol] Review of Systems ROS Other: All systems not noted in ROS Statement are negative. <Will Simeon - Last Filed: 04/21/17 17:17> ROS Other: All systems not noted in ROS Statement are negative. <Topher Espinoza - Last Filed: 04/21/17 20:45> ROS Statement: Those systems with pertinent positive or pertinent negative responses have been documented in the HPI. 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 History of Any Multi-Drug Resistant Organisms: MRSA, Other MDRO, VRE Date of last positivie culture/infection: 03/18/17-MRSA; 04/05/17-VRE; 03/18/17- MDRO-PSEUDOMONAS MDRO Source:: Right Leg MRSA and VRE; Coccyx MDRO and MRSA Past Surgical History: Adenoidectomy, Appendectomy, Heart Catheterization, Hernia Repair, Orthopedic Surgery, Tonsillectomy Additional Past Surgical History / Comment(s): R BKA, R BKA revision to AKA, L AKA , rt arm picc line -since removed Past Anesthesia/Blood Transfusion Reactions: No Reported Reaction Additional Past Anesthesia/Blood Transfusion Reaction / Comment(s): Pt recently received blood. Past Psychological History: Depression Smoking Status: Current every day smoker Past Alcohol Use History: None Reported Past Drug Use History: None Reported, Heroin - Past Family History Mother Family Medical History: Cancer Additional Family Medical History / Comment(s): Mother of brain cancer mets at the age of 68 yrs. Father Family Medical History: Cancer, Coronary Artery Disease (CAD) Additional Family Medical History / Comment(s): Father of throat cancer at the age of 70yrs. <Will Simeon - Last Filed: 04/21/17 17:17> General Exam Limitations: no limitations <Will Simeon - Last Filed: 04/21/17 17:17> <Topher Espinoza - Last Filed: 04/21/17 20:45> - General Exam Comments Initial Comments: GENERAL: Patient is well-developed and well-nourished. Patient is nontoxic and well- hydrated and is in mild distress. ENT: Neck is soft and supple. No significant lymphadenopathy is noted. Oropharynx is clear. Moist mucous membranes. Neck has full range of motion without eliciting any pain. EYES: The sclera were anicteric and conjunctiva were pink and moist. Extraocular movements were intact and pupils were equal round and reactive to light. Eyelids were unremarkable. PULMONARY: Unlabored respirations. Good breath sounds bilaterally. No audible rales rhonchi or wheezing was noted. CARDIOVASCULAR: There is a regular rate and rhythm without any murmurs gallops or rubs. ABDOMEN: Soft and nontender with normal bowel sounds. No palpable organomegaly was noted. There is no palpable pulsatile mass. SKIN: Patient has a large sacral decubitus ulcer with significant drainage that is purulent NEUROLOGIC: Patient is alert and oriented x3. Cranial nerves II through XII are grossly intact. Motor and sensory are also intact. Normal speech, volume and content. Symmetrical smile. MUSCULOSKELETAL: Bilateral AKA LYMPHATICS: No significant lymphadenopathy is noted PSYCHIATRIC: Normal psychiatric evaluation. (Will Simeon) Medical Decision Making - Lab Data Result diagrams: 04/21/17 16:06 04/21/17 16:06 <Will Simeon - Last Filed: 04/21/17 17:17> - Lab Data Result diagrams: 04/21/17 16:06 04/21/17 16:06 - Radiology Data Radiology results: report reviewed (Computed tomography scan of the brain shows no acute process. Computed tomography scan of the C-spine shows spondylosis C5- C6.), image reviewed (Chest x-ray shows hyperinflation. (Fracture. No change from previous.) <Topher Espinoza - Last Filed: 04/21/17 20:45> - Medical Decision Making EKG shows a sinus rhythm at 71 bpm WI interval 144 QRS is 96 Q-T intervals 416 QTC is 452. Patient's EKG shows no ST segment elevation or depression or T- wave abdomen is noted. Dr. Espinoza be taking over the care of this patient at 5 PM (Will Simeon) Patient was reevaluated by myself, Dr. Espinoza. Patient resting comfortably in bed however does complain of his chronic pain. Dr. Simeon did have concern for infection and requested admission. Patient was updated on results and plan. Case was discussed in detail with Dr. Ma, who will admit for Dr. Chong. Patient did have blood pressure started to decrease and will be provided with IV fluids. (Topher Espinoza) - Lab Data Lab Results 04/21/17 04/21/17 04/21/17 Range/Units 15:53 16:06 16:06 WBC 9.3 (3.8-10.6) k/uL RBC 3.46 L (4.30-5.90) m/uL Hgb 9.8 L (13.0-17.5) gm/dL Hct 32.9 L (39.0-53.0) % MCV 95.0 (80.0-100.0) fL MCH 28.4 (25.0-35.0) pg MCHC 29.8 L (31.0-37.0) g/dL RDW 14.6 (11.5-15.5) % Plt Count 579 H (150-450) k/uL Neutrophils % 83 % Lymphocytes % 12 % Monocytes % 3 % Eosinophils % 0 % Basophils % 0 % Neutrophils # 7.8 H (1.3-7.7) k/uL Lymphocytes # 1.1 (1.0-4.8) k/uL Monocytes # 0.3 (0-1.0) k/uL Eosinophils # 0.0 (0-0.7) k/uL Basophils # 0.0 (0-0.2) k/uL Hypochromasia Moderate PT (9.0-12.0) sec INR (<1.1) APTT (22.0-30.0) sec Sodium 141 (137-145) mmol/L Potassium 4.6 (3.5-5.1) mmol/L Chloride 105 (98-107) mmol/L Carbon Dioxide 25 (22-30) mmol/L Anion Gap 11 mmol/L BUN 16 (9-20) mg/dL Creatinine 0.68 (0.66-1.25) mg/dL Est GFR (MDRD) Af Amer >60 (>60 ml/min/1.73 sqM) Est GFR (MDRD) Non-Af >60 (>60 ml/min/1.73 sqM) Glucose 41 L* (74-99) mg/dL POC Glucose (mg/dL) 48 L (75-99) mg/dL POC Glu [employer] Supervisor ID Sharp, Annemarie Plasma Lactic Acid Ayo (0.7-2.0) mmol/L Calcium 9.6 (8.4-10.2) mg/dL Total Bilirubin 0.4 (0.2-1.3) mg/dL AST 26 (17-59) U/L ALT 33 (21-72) U/L Alkaline Phosphatase 90 (38-126) U/L Total Protein 6.6 (6.3-8.2) g/dL Albumin 3.4 L (3.5-5.0) g/dL Urine Color Urine Appearance (Clear) Urine pH (5.0-8.0) Ur Specific [place] (1.001-1.035) Urine Protein (Negative) Urine Glucose (UA) (Negative) Urine Ketones (Negative) Urine Blood (Negative) Urine Nitrite (Negative) Urine Bilirubin (Negative) Urine Urobilinogen (<2.0) mg/dL Ur Leukocyte Esterase (Negative) 04/21/17 04/21/17 04/21/17 Range/Units 16:06 16:06 16:16 WBC (3.8-10.6) k/uL RBC (4.30-5.90) m/uL Hgb (13.0-17.5) gm/dL Hct (39.0-53.0) % MCV (80.0-100.0) fL MCH (25.0-35.0) pg MCHC (31.0-37.0) g/dL RDW (11.5-15.5) % Plt Count (150-450) k/uL Neutrophils % % Lymphocytes % % Monocytes % % Eosinophils % % Basophils % % Neutrophils # (1.3-7.7) k/uL Lymphocytes # (1.0-4.8) k/uL Monocytes # (0-1.0) k/uL Eosinophils # (0-0.7) k/uL Basophils # (0-0.2) k/uL Hypochromasia PT 10.5 (9.0-12.0) sec INR 1.0 (<1.1) APTT 26.0 (22.0-30.0) sec Sodium (137-145) mmol/L Potassium (3.5-5.1) mmol/L Chloride (98-107) mmol/L Carbon Dioxide (22-30) mmol/L Anion Gap mmol/L BUN (9-20) mg/dL Creatinine (0.66-1.25) mg/dL Est GFR (MDRD) Af Amer (>60 ml/min/1.73 sqM) Est GFR (MDRD) Non-Af (>60 ml/min/1.73 sqM) Glucose (74-99) mg/dL POC Glucose (mg/dL) 124 H (75-99) mg/dL POC Glu [employer] Supervisor ID Salgat, Susanna Plasma Lactic Acid Ayo 1.1 (0.7-2.0) mmol/L Calcium (8.4-10.2) mg/dL Total Bilirubin (0.2-1.3) mg/dL AST (17-59) U/L ALT (21-72) U/L Alkaline Phosphatase (38-126) U/L Total Protein (6.3-8.2) g/dL Albumin (3.5-5.0) g/dL Urine Color Urine Appearance (Clear) Urine pH (5.0-8.0) Ur Specific [place] (1.001-1.035) Urine Protein (Negative) Urine Glucose (UA) (Negative) Urine Ketones (Negative) Urine Blood (Negative) Urine Nitrite (Negative) Urine Bilirubin (Negative) Urine Urobilinogen (<2.0) mg/dL Ur Leukocyte Esterase (Negative) 04/21/17 04/21/17 Range/Units 17:00 19:17 WBC (3.8-10.6) k/uL RBC (4.30-5.90) m/uL Hgb (13.0-17.5) gm/dL Hct (39.0-53.0) % MCV (80.0-100.0) fL MCH (25.0-35.0) pg MCHC (31.0-37.0) g/dL RDW (11.5-15.5) % Plt Count (150-450) k/uL Neutrophils % % Lymphocytes % % Monocytes % % Eosinophils % % Basophils % % Neutrophils # (1.3-7.7) k/uL Lymphocytes # (1.0-4.8) k/uL Monocytes # (0-1.0) k/uL Eosinophils # (0-0.7) k/uL Basophils # (0-0.2) k/uL Hypochromasia PT (9.0-12.0) sec INR (<1.1) APTT (22.0-30.0) sec Sodium (137-145) mmol/L Potassium (3.5-5.1) mmol/L Chloride (98-107) mmol/L Carbon Dioxide (22-30) mmol/L Anion Gap mmol/L BUN (9-20) mg/dL Creatinine (0.66-1.25) mg/dL Est GFR (MDRD) Af Amer (>60 ml/min/1.73 sqM) Est GFR (MDRD) Non-Af (>60 ml/min/1.73 sqM) Glucose (74-99) mg/dL POC Glucose (mg/dL) 67 L (75-99) mg/dL POC Glu [employer] Supervisor Lora Shen A Plasma Lactic Acid Ayo (0.7-2.0) mmol/L Calcium (8.4-10.2) mg/dL Total Bilirubin (0.2-1.3) mg/dL AST (17-59) U/L ALT (21-72) U/L Alkaline Phosphatase (38-126) U/L Total Protein (6.3-8.2) g/dL Albumin (3.5-5.0) g/dL Urine Color Yellow Urine Appearance Clear (Clear) Urine pH 5.5 (5.0-8.0) Ur Specific [place] 1.008 (1.001-1.035) Urine Protein Trace H (Negative) Urine Glucose (UA) Trace H (Negative) Urine Ketones Negative (Negative) Urine Blood Negative (Negative) Urine Nitrite Negative (Negative) Urine Bilirubin Negative (Negative) Urine Urobilinogen <2.0 (<2.0) mg/dL Ur Leukocyte Esterase Negative (Negative) Disposition <Will Simeon - Last Filed: 04/21/17 17:17> <Topher Espinoza - Last Filed: 04/21/17 20:45> Clinical Impression: Sacral ulcer, Hypothermia Disposition: ADMITTED IP TO THIS HOSP Referrals: Brent Chong MD [Primary Care Provider] - 1-2 days
[2017-04-21] MEDS ORDERED: VANCOMYCIN 1,000 MG in SODIUM CHLORIDE 0.9% 250 ML IVPB STA (17:20)
[2017-04-21 17:21] LABS: Appearance,Urine Clear (Clear); Bilirubin,Urine Negative (Negative); Glucose,Urine (UA) Trace (Negative); Ketones,Urine Negative (Negative); Leukocyte Esterase,Urine Negative (Negative); Nitrite,Urine Negative (Negative); PH, Urine 5.5 (5.0-8.0); Protein,Urine Trace (Negative); Specific Gravity,Urine 1.008 (1.001-1.035); UA Billing (MACRO vs. MICRO) CHEM; Urobilinogen,Urine <2.0 mg/dL (<2.0)
[2017-04-21] MEDS ORDERED: HYDROcodone/APAP 10-325MG 1 EACH TAB PO ONE (17:41)
--- NOTE | 2017-04-21 17:44 | XR ---
EXAMINATION TYPE: XR chest 2V DATE OF EXAM: 04/21/2017 COMPARISON: 04/09/2017 HISTORY: Syncope TECHNIQUE: Frontal and lateral views of the chest are obtained. FINDINGS: There is some pulmonary hyperinflation with flattening of the diaphragm. Heart size is nor mal. There are old multiple posterior right healed rib fractures. There are old left-sided rib fractu res. There is a small calcified granuloma in the left upper lobe. There are no hilar masses. There is no pleural effusion. IMPRESSION: There is probably COPD. No acute lung disease. No adverse change compared to old exam. O ld rib fractures.
[2017-04-21 19:21] LABS: Glucose,Whole Blood 67 mg/dL (75-99)
[2017-04-21] MEDS ORDERED: SODIUM CHLORIDE 0.9% 500 ML IV ONE (20:17)
[2017-04-21] MEDS ORDERED: NALOXONE 0.4 MG/ML 1 ML VIAL IV PRN (20:46)
[2017-04-21 21:10] LABS: Glucose,Whole Blood 125 mg/dL (75-99)
[2017-04-21] MEDS: SODIUM CHLORIDE 0.9% 1,000 ML IV SCH (21:15)
[2017-04-21 22:09] LABS: Glucose,Whole Blood 126 mg/dL (75-99)
[2017-04-21] MEDS ORDERED: COLLAGENASE 250 UNIT/GM OINTMENT 30 GM TUBE TOPICAL SCH (23:00)
[2017-04-22] MEDS: QUEtiapine 200 MG TAB PO SCH ×2 (01:07→20:51)
[2017-04-22] MEDS: ATORVASTATIN 40 MG TAB PO SCH ×2 (01:07→20:50)
[2017-04-22] MEDS: DULoxetine HCL 30 MG CAPSULE.DR PO SCH ×3 (01:07→20:51)
[2017-04-22] MEDS: METHADONE 10 MG TAB PO PRN ×3 (01:13→17:16)
[2017-04-22] MEDS: CARVEDILOL 6.25 MG TAB PO SCH ×3 (01:33→20:50)
[2017-04-22 01:36] LABS: Glucose,Whole Blood 255 mg/dL (75-99)
[2017-04-22] MEDS: VANCOMYCIN 1,000 MG in SODIUM CHLORIDE 0.9% 250 ML IVPB SCH ×2 (06:34→17:22)
[2017-04-22] MEDS: SODIUM CHLORIDE 0.9% 1,000 ML IV SCH ×2 (06:34→16:31)
[2017-04-22 07:16] LABS: Glucose,Whole Blood 123 mg/dL (75-99)
[2017-04-22] MEDS: INSULIN LISPRO (humaLOG) 300 UNIT/3 ML VIAL SQ SCH ×3 (08:10→17:26)
[2017-04-22] MEDS ORDERED: INSULIN GLARGINE 100 UNIT/ML 10 ML VIAL SQ SCH (09:00)
[2017-04-22 09:02] LABS: Basophils % (A) 1 %; CH 28.4; CHCM 31.4; Eosinophils # (A) 0.2 k/uL (0-0.7); Eosinophils % (A) 3 %; HCT 26.2 % (39.0-53.0); HDW 3.07; HGB 8.6 gm/dL (13.0-17.5); Hypochromasia Slight; Luc # (Auto) 0.15; Luc % (Auto) 2; Lymphocytes # (A) 2.3 k/uL (1.0-4.8); Lymphocytes % (A) 34 %; MCH 29.9 pg (25.0-35.0); MCHC 32.9 g/dL (31.0-37.0); MCV 90.9 fL (80.0-100.0); Monocytes # (A) 0.3 k/uL (0-1.0); Monocytes % (A) 5 %; Neutrophils # (A) 3.7 k/uL (1.3-7.7); Neutrophils % (A) 56 %; RBC 2.88 m/uL (4.30-5.90); RDW 14.6 % (11.5-15.5); WBC 6.6 k/uL (3.8-10.6)
[2017-04-22] MEDS: DOXYCYCLINE 50 MG CAP PO SCH ×2 (09:14→20:50)
[2017-04-22] MEDS: MULTIVITAMINS, THERA 1 EACH TAB PO SCH (09:14)
[2017-04-22] MEDS: LOSARTAN 25 MG TAB PO SCH (09:14)
[2017-04-22] MEDS: hydrALAZINE HCL 50 MG TAB PO SCH ×3 (09:14→21:21)
[2017-04-22] MEDS: ASPIRIN 81 MG CHEW PO SCH (09:14)
[2017-04-22] MEDS: GABAPENTIN 300 MG CAP PO SCH ×3 (09:14→21:21)
[2017-04-22] MEDS: PANTOPRAZOLE 40 MG TABLET PO SCH (09:15)
[2017-04-22 09:18] LABS: ALT 24 U/L (21-72); AST 23 U/L (17-59); Alkaline Phosphatase 60 U/L (38-126); Anion Gap 6 mmol/L; Blood Urea Nitrogen 14 mg/dL (9-20); Calcium 8.9 mg/dL (8.4-10.2); Carbon Dioxide 23 mmol/L (22-30); Chloride 114 mmol/L (98-107); Glucose 73 mg/dL (74-99); Non-African American GFR(MDRD) >60 (>60 ml/min/1.73 sqM); Potassium 4.6 mmol/L (3.5-5.1); Sodium 143 mmol/L (137-145); Total Bilirubin 0.3 mg/dL (0.2-1.3); Total Protein 5.6 g/dL (6.3-8.2)
[2017-04-22 11:13] LABS: Manual Review Performed
[2017-04-22 11:14] LABS: Crenated RBC Present
[2017-04-22 12:27] LABS: Glucose,Whole Blood 260 mg/dL (75-99)
[2017-04-22 14:31] VITALS: BMI 15.0
[2017-04-22 17:43] LABS: Glucose,Whole Blood 230 mg/dL (75-99)
[2017-04-22] MEDS ORDERED: LEVOFLOXACIN 750MG-D5W PMX 750 MG in DEXTROSE/WATER 1 150ML.BAG IVPB SCH (18:00)
--- NOTE | 2017-04-22 19:05 | P.HPIM ---
History of Present Illness H&P Date: 04/22/17 Chief Complaint: Altered mental state, hypoglycemia Ambrose is a 56-year-old male well-known to our practice well-known to the hospital who was recently discharged from the hospital in [facility]. Ambrose is a known former IV drug abuser, noncompliant diabetic, bilateral AKA, secondary to diabetes presented to the hospital emergency room secondary to falling out of his chair and syncopal according to family. Patient had a 37 glucose when EMS checked him on arrival to his home. Patient has a large known decubitus ulcer he is seeing Dr. Chong in the wound center this is to the bone approximately 9 x 8 cm. Patient also had a rectal temp of about 94 on arrival to the hospital Review of Systems Constitutional: Reports as per HPI, Reports daytime sleepiness Ears, nose, mouth and throat: Reports as per HPI Cardiovascular: Reports as per HPI Respiratory: Reports as per HPI Gastrointestinal: Reports as per HPI Genitourinary: Reports as per HPI Integumentary: Reports wounds (Large sacral decub) Neurological: Reports as per HPI Psychiatric: Reports as per HPI Endocrine: Reports high blood sugars, Reports low blood sugars Hematologic/Lymphatic: Reports as per HPI Allergic/Immunologic: Reports as per HPI (Bilateral AKA) 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, left apical lung lesion, chronic back pain, chronic anemia, gastric ulcer disease , migraine, multiple infections including infections with MRSA, VRE, Pseudomonas multidrug resistant as evident in the wound cultures from the coccyx also wound rt leg-goes to [facility] every , edentulous, History of Any Multi-Drug Resistant Organisms: MRSA, Other MDRO, VRE Date of last positivie culture/infection: 03/18/17-MRSA; 04/05/17-VRE; 03/18/17- MDRO-PSEUDOMONAS MDRO Source:: Right Leg MRSA and VRE; Coccyx MDRO and MRSA Past Surgical History: Adenoidectomy, Appendectomy, Heart Catheterization, Hernia Repair, Orthopedic Surgery, Tonsillectomy Additional Past Surgical History / Comment(s): R BKA, R BKA revision to GREGORY, L GREGORY , rt arm picc line -since removed Past Anesthesia/Blood Transfusion Reactions: No Reported Reaction Additional Past Anesthesia/Blood Transfusion Reaction / Comment(s): Pt recently received blood- no reaction Smoking Status: Current every day smoker - Past Family History Mother Family Medical History: Cancer Additional Family Medical History / Comment(s): Mother of brain cancer mets at the age of 68 yrs. Father Family Medical History: Cancer, Coronary Artery Disease (CAD) Additional Family Medical History / Comment(s): Father of throat cancer at the age of 70yrs. Medications and Allergies Home Medications Medication Instructions Recorded Confirmed Type Carvedilol [Coreg] 6.25 mg PO BID 06/13/14 04/21/17 History Gabapentin [Neurontin] 300 mg PO TID 01/28/16 04/21/17 History Omeprazole 20 mg PO DAILY 06/12/16 04/21/17 History Multivitamins, Thera [Multivitamin 1 tab PO DAILY 10/13/16 04/21/17 History (formulary)] Insulin Detemir [Levemir] 38 unit SQ HS 01/14/17 04/21/17 History Atorvastatin [Lipitor] 40 mg PO HS 02/04/17 04/21/17 History Collagenase [Santyl] 1 applic TOPICAL DAILY 04/05/17 04/21/17 History DULoxetine HCL [Cymbalta] 30 mg PO BID 04/06/17 04/21/17 History INSULIN LISPRO (humaLOG) [humaLOG 8 units SQ AC-TID 04/06/17 04/21/17 History (formulary)] Insulin Glargine [Lantus] 38 unit SQ DAILY 04/06/17 04/21/17 History Losartan Potassium 25 mg PO DAILY 04/06/17 04/21/17 History hydrALAZINE HCL [Apresoline] 50 mg PO TID 04/06/17 04/21/17 History Allergies Allergy/AdvReac Type Severity Reaction Status Date / Time piperacillin [From Zosyn] Allergy Severe Dyspnea Verified 04/21/17 15:30 tazobactam [From Zosyn] Allergy Severe Dyspnea Verified 04/21/17 15:30 tramadol Allergy Unknown Verified 04/21/17 15:30 fentanyl AdvReac Lightheaded Verified 04/21/17 15:30 ketorolac tromethamine AdvReac Nausea Verified 04/21/17 15:30 [From Toradol] Physical Exam Osteopathic Statement: *. No significant issues noted on an osteopathic structural exam other than those noted in the History and Physical/Consult. Vitals: Vital Signs Temp Pulse Pulse Resp BP BP Pulse Ox 04/22/17 15:00 99.2 F 90 18 133/73 97 04/22/17 08:00 68 16 04/22/17 07:00 97.9 F 68 16 124/77 99 04/22/17 02:06 97.3 F L 81 18 139/69 98 04/21/17 22:03 97.7 F 76 18 145/83 98 04/21/17 21:00 97.8 F 73 16 111/55 98 04/21/17 20:00 75 16 91/51 98 04/21/17 19:23 98.0 F 04/21/17 18:40 97.3 F L 77 18 148/96 96 Intake and Output 04/22/17 04/22/17 04/22/17 06:59 14:59 22:59 Other: Voiding Method Urinal Urinal # Bowel Movements 0 Weight 53.07 kg Patient Weight 04/23/17 06:59 Weight 53.07 kg General: [Patient awake, alert and oriented times 3. Patient in no acute distress.] HEENT: [PERRL. EOMI. No pharyngeal erythema or exudate.] Neck: [No adenopathy.] Cardiac: [Heart regular in rate and rhythm. No S3. No S4. No clicks, rubs. No murmur.] Lungs: [Clear to auscultation bilaterally.] Abdomen: [No mass. No organomegaly. Bowel sounds presnt and normoactive in all 4 quadrants.] Extremes: Bilateral AKA : Large sacral decubitus ulcer approximately 9 cm x 8 cm to the bone large amount of exudative purulent material draining from the wound Musculoskeletal: [No joint erythema, edema or tenderness.] Skin: [No rash.] Neurologic: [No lateralizing deficits. CN II - XII grossly intact.] Lymphatic: [No adenopathy.] Results CBC & Chem 7: 04/22/17 08:09 04/22/17 08:09 Labs: Abnormal Lab Results - Last 24 Hours (Table) 04/21/17 04/21/17 04/21/17 Range/Units 19:17 21:06 21:47 RBC (4.30-5.90) m/uL Hgb (13.0-17.5) gm/dL Hct (39.0-53.0) % Plt Count (150-450) k/uL Chloride (98-107) mmol/L Creatinine (0.66-1.25) mg/dL Glucose (74-99) mg/dL POC Glucose (mg/dL) 67 L 125 H 126 H (75-99) mg/dL Total Protein (6.3-8.2) g/dL Albumin (3.5-5.0) g/dL Urine Opiates Screen (NotDetected) Urine Methadone Screen (NotDetected) U Tricyclic Antidepress (NotDetected) 04/22/17 04/22/17 04/22/17 Range/Units 01:35 06:51 08:09 RBC 2.88 L (4.30-5.90) m/uL Hgb 8.6 L (13.0-17.5) gm/dL Hct 26.2 L (39.0-53.0) % Plt Count 532 H (150-450) k/uL Chloride (98-107) mmol/L Creatinine (0.66-1.25) mg/dL Glucose (74-99) mg/dL POC Glucose (mg/dL) 255 H 123 H (75-99) mg/dL Total Protein (6.3-8.2) g/dL Albumin (3.5-5.0) g/dL Urine Opiates Screen (NotDetected) Urine Methadone Screen (NotDetected) U Tricyclic Antidepress (NotDetected) 04/22/17 04/22/17 04/22/17 Range/Units 08:09 11:54 13:05 RBC (4.30-5.90) m/uL Hgb (13.0-17.5) gm/dL Hct (39.0-53.0) % Plt Count (150-450) k/uL Chloride 114 H (98-107) mmol/L Creatinine 0.65 L (0.66-1.25) mg/dL Glucose 73 L (74-99) mg/dL POC Glucose (mg/dL) 260 H (75-99) mg/dL Total Protein 5.6 L (6.3-8.2) g/dL Albumin 2.6 L (3.5-5.0) g/dL Urine Opiates Screen Detected H (NotDetected) Urine Methadone Screen Detected H (NotDetected) U Tricyclic Antidepress Detected H (NotDetected) 04/22/17 Range/Units 17:25 RBC (4.30-5.90) m/uL Hgb (13.0-17.5) gm/dL Hct (39.0-53.0) % Plt Count (150-450) k/uL Chloride (98-107) mmol/L Creatinine (0.66-1.25) mg/dL Glucose (74-99) mg/dL POC Glucose (mg/dL) 230 H (75-99) mg/dL Total Protein (6.3-8.2) g/dL Albumin (3.5-5.0) g/dL Urine Opiates Screen (NotDetected) Urine Methadone Screen (NotDetected) U Tricyclic Antidepress (NotDetected) Microbiology - Last 24 Hours (Table) 04/21/17 16:06 Gram Stain - Preliminary Hip - Right Wound Culture - Preliminary Gram Neg Bacilli 04/21/17 17:00 Urine Culture - Preliminary Urine,Catheterized
[2017-04-22] MEDS: CALCIUM CARBONATE 500 MG CHEWABLE PO PRN (20:49)
[2017-04-22 20:52] LABS: Glucose,Whole Blood 231 mg/dL (75-99)
[2017-04-22] MEDS ORDERED: INSULIN DETEMIR 100 UNIT/ML 10 ML VIAL SQ SCH (21:00)
--- NOTE | 2017-04-22 22:44 | P.CONS ---
History of Present Illness - Reason for Consult Consult date: 04/22/17 - Chief Complaint altered mental status - History of Present Illness 56-year-old male well-known to the infectious disease service due to his many hospitalizations regarding bouts of sepsis relating to the patient's uncontrolled diabetes, urinary infections, and chronic coccyx ulceration. These also had significant difficulties with infected limbs and had the right [id number] amputation done last June. Patient now presents from his apartment weak and ill. With altered mental status. Find evidence of significant hypoglycemia. Which is markedly different from his most recent hospital stay his blood sugar was 1400. Patient is weak and ill. 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, left apical lung lesion, chronic back pain, chronic anemia, gastric ulcer disease , migraine, multiple infections including infections with MRSA, VRE, Pseudomonas multidrug resistant as evident in the wound cultures from the coccyx also wound rt leg-goes to [facility] every , edentulous, History of Any Multi-Drug Resistant Organisms: MRSA, Other MDRO, VRE Year Discovered:: 03/18/17-MRSA; 04/05/17-VRE; 03/18/1713-CQJN-[id number] MDRO Source:: Right Leg MRSA and VRE; Coccyx MDRO and MRSA Past Surgical History: Adenoidectomy, Appendectomy, Heart Catheterization, Hernia Repair, Orthopedic Surgery, Tonsillectomy Additional Past Surgical History / Comment(s): R BKA, R BKA revision to AKA, L AKA , rt arm picc line -since removed Past Anesthesia/Blood Transfusion Reactions: No Reported Reaction Additional Past Anesthesia/Blood Transfusion Reaction / Comm: Pt recently received blood- no reaction Smoking Status: Current every day smoker - Past Family History Mother Family Medical History: Cancer Additional Family Medical History / Comment(s): Mother of brain cancer mets at the age of 68 yrs. Father Family Medical History: Cancer, Coronary Artery Disease (CAD) Additional Family Medical History / Comment(s): Father of throat cancer at the age of 70yrs. Medications and Allergies Home Medications and Allergies Comment(s): Current Medications Aspirin (Aspirin) 81 mg PO DAILY [facility] Last Admin: 04/22/17 09:14 Dose: 81 mg Atorvastatin Calcium (Lipitor) 40 mg PO HS [facility] Last Admin: 04/22/17 20:50 Dose: 40 mg Calcium Carbonate/Glycine (Tums) 500 mg PO TID PRN PRN Reason: Heartburn Last Admin: 04/22/17 20:49 Dose: 500 mg Carvedilol (Coreg) 6.25 mg PO BID [facility] Last Admin: 04/22/17 20:50 Dose: 6.25 mg Collagenase (Santyl) 1 applic TOPICAL [facility] Doxycycline Monohydrate (Vibramycin) 100 mg PO Q12HR [facility] Last Admin: 04/22/17 20:50 Dose: 100 mg Duloxetine HCl (Cymbalta) 30 mg PO BID [facility] Last Admin: 04/22/17 20:51 Dose: 30 mg Gabapentin (Neurontin) 300 mg PO TID [facility] Last Admin: 04/22/17 21:21 Dose: 300 mg Hydralazine HCl (Apresoline) 50 mg PO TID [facility] Last Admin: 04/22/17 21:21 Dose: 50 mg Vancomycin HCl 1,000 mg/ (Sodium Chloride) 250 mls @ 125 mls/hr IVPB Q12H [facility] Last Admin: 04/22/17 17:22 Dose: 125 mls/hr Sodium Chloride (Saline 0.9%) 1,000 mls @ 110 mls/hr IV .Q9H6M [facility] Last Admin: 04/22/17 16:31 Dose: Not Given Insulin Detemir (Levemir) 38 unit SQ [facility] Last Admin: 04/22/17 21:21 Dose: 30 unit Insulin Human Lispro (Humalog) 8 unit SQ AC-TID [facility] Last Admin: 04/22/17 17:26 Dose: Not Given Levofloxacin (Levaquin) 750 mg PO Q24H [facility] Losartan Potassium (Cozaar) 25 mg PO DAILY [facility] Last Admin: 04/22/17 09:14 Dose: 25 mg Methadone HCl (Dolophine) 10 mg PO Q8HR PRN PRN Reason: Pain Scale 6 to 10 Last Admin: 04/22/17 17:16 Dose: 10 mg Methadone HCl (Dolophine) 10 mg PO Q8HR [facility] Multivitamins (Theragran) 1 each PO DAILY [facility] Last Admin: 04/22/17 09:14 Dose: 1 each Naloxone HCl (Narcan) 0.2 mg IV Q2M PRN PRN Reason: Opioid Reversal Pantoprazole Sodium (Protonix) 40 mg PO DAILY [facility] Last Admin: 04/22/17 09:15 Dose: 40 mg Quetiapine Fumarate (Seroquel) 200 mg PO HS [facility] Last Admin: 04/22/17 20:51 Dose: 200 mg Home Medications Medication Instructions Recorded Confirmed Type Carvedilol [Coreg] 6.25 mg PO BID 06/13/14 04/21/17 History Gabapentin [Neurontin] 300 mg PO TID 01/28/16 04/21/17 History Omeprazole 20 mg PO DAILY 06/12/16 04/21/17 History Multivitamins, Thera [Multivitamin 1 tab PO DAILY 10/13/16 04/21/17 History (formulary)] Insulin Detemir [Levemir] 38 unit SQ 01/14/17 04/21/17 History Atorvastatin [Lipitor] 40 mg PO HS 02/04/17 04/21/17 History Collagenase [Santyl] 1 applic TOPICAL DAILY 04/05/17 04/21/17 History DULoxetine HCL [Cymbalta] 30 mg PO BID 04/06/17 04/21/17 History INSULIN LISPRO (humaLOG) [humaLOG 8 units SQ AC-TID 04/06/17 04/21/17 History (formulary)] Insulin Glargine [Lantus] 38 unit SQ DAILY 04/06/17 04/21/17 History Losartan Potassium 25 mg PO DAILY 04/06/17 04/21/17 History hydrALAZINE HCL [Apresoline] 50 mg PO TID 04/06/17 04/21/17 History Allergies Allergy/AdvReac Type Severity Reaction Status Date / Time piperacillin [From Zosyn] Allergy Severe Dyspnea Verified 04/21/17 15:30 tazobactam [From Zosyn] Allergy Severe Dyspnea Verified 04/21/17 15:30 tramadol Allergy Unknown Verified 04/21/17 15:30 fentanyl AdvReac Lightheaded Verified 04/21/17 15:30 ketorolac tromethamine AdvReac Nausea Verified 04/21/17 15:30 [From Toradol] Physical Exam Vitals: Vital Signs Temp Pulse Pulse Resp BP Pulse Ox 04/22/17 21:20 83 150/88 04/22/17 20:30 88 142/64 96 04/22/17 18:46 90 18 04/22/17 15:00 99.2 F 90 18 133/73 97 04/22/17 08:00 68 16 04/22/17 07:00 97.9 F 68 16 124/77 99 04/22/17 02:06 97.3 F L 81 18 139/69 98 Intake and Output 04/22/17 04/22/17 04/22/17 06:59 14:59 22:59 Other: Voiding Method Urinal Urinal Urinal # Voids 3 # Bowel Movements 0 Weight 53.07 kg 53.07 kg Patient Weight 04/23/17 06:59 Weight 53.07 kg This is a 56-year-old emaciated male. Poor mental status HEENT: Head is atraumatic, normocephalic. Pupils equal, round. Sclerae is anicteric. Mucous membranes of the mouth are dry. Thrush is noted. Dentition is in poor order. NECK: Supple. No JVD. No lymphadenopathy. No thyromegaly. LUNGS: Coarse sounds bilaterally with poor inspiratory effort. No intercostal retractions. HEART: Regular rate and rhythm. No murmur. ABDOMEN: Soft. Bowel sounds are present. No masses. No tenderness. EXTREMITIES: Bilateral lower extremity amputations noted. Evidence of the open ulceration to the right lateral residual limb. Present 2 x 2 by 0.2 cm. NEUROLOGICAL: Poor mental status The coccyx ulceration measures at 8 x7 x 0.5 cm. with purulence and necrosis especially at the 3 o'clock position there is also a small ulceration of 2 x 2 x 0.2 cm on the right upper thigh posterior Results CBC & Chem 7: 04/22/17 08:09 04/22/17 08:09 Labs: Abnormal Lab Results - Last 24 Hours (Table) 04/22/17 04/22/17 04/22/17 Range/Units 01:35 06:51 08:09 RBC 2.88 L (4.30-5.90) m/uL Hgb 8.6 L (13.0-17.5) gm/dL Hct 26.2 L (39.0-53.0) % Plt Count 532 H (150-450) k/uL Chloride (98-107) mmol/L Creatinine (0.66-1.25) mg/dL Glucose (74-99) mg/dL POC Glucose (mg/dL) 255 H 123 H (75-99) mg/dL Total Protein (6.3-8.2) g/dL Albumin (3.5-5.0) g/dL Urine Opiates Screen (NotDetected) Urine Methadone Screen (NotDetected) U Tricyclic Antidepress (NotDetected) 04/22/17 04/22/17 04/22/17 Range/Units 08:09 11:54 13:05 RBC (4.30-5.90) m/uL Hgb (13.0-17.5) gm/dL Hct (39.0-53.0) % Plt Count (150-450) k/uL Chloride 114 H (98-107) mmol/L Creatinine 0.65 L (0.66-1.25) mg/dL Glucose 73 L (74-99) mg/dL POC Glucose (mg/dL) 260 H (75-99) mg/dL Total Protein 5.6 L (6.3-8.2) g/dL Albumin 2.6 L (3.5-5.0) g/dL Urine Opiates Screen Detected H (NotDetected) Urine Methadone Screen Detected H (NotDetected) U Tricyclic Antidepress Detected H (NotDetected) 04/22/17 04/22/17 Range/Units 17:25 20:50 RBC (4.30-5.90) m/uL Hgb (13.0-17.5) gm/dL Hct (39.0-53.0) % Plt Count (150-450) k/uL Chloride (98-107) mmol/L Creatinine (0.66-1.25) mg/dL Glucose (74-99) mg/dL POC Glucose (mg/dL) 230 H 231 H (75-99) mg/dL Total Protein (6.3-8.2) g/dL Albumin (3.5-5.0) g/dL Urine Opiates Screen (NotDetected) Urine Methadone Screen (NotDetected) U Tricyclic Antidepress (NotDetected) Microbiology - Last 24 Hours (Table) 04/21/17 16:06 Blood Culture - Preliminary Blood No Growth after 24 hours 04/21/17 16:06 Gram Stain - Preliminary Hip - Right Wound Culture - Preliminary Gram Neg Bacilli 04/21/17 17:00 Urine Culture - Preliminary Urine,Catheterized Laboratory Results WBC 6.6 k/uL (3.8-10.6) 04/22/17 08:09 RBC 2.88 m/uL (4.30-5.90) L 04/22/17 08:09 Hgb 8.6 gm/dL (13.0-17.5) L 04/22/17 08:09 Hct 26.2 % (39.0-53.0) L 04/22/17 08:09 MCV 90.9 fL (80.0-100.0) 04/22/17 08:09 MCH 29.9 pg (25.0-35.0) 04/22/17 08:09 MCHC 32.9 g/dL (31.0-37.0) 04/22/17 08:09 RDW 14.6 % (11.5-15.5) 04/22/17 08:09 Plt Count 532 k/uL (150-450) H 04/22/17 08:09 Neutrophils % 56 % 04/22/17 08:09 Lymphocytes % 34 % 04/22/17 08:09 Monocytes % 5 % 04/22/17 08:09 Eosinophils % 3 % 04/22/17 08:09 Basophils % 1 % 04/22/17 08:09 Neutrophils # 3.7 k/uL (1.3-7.7) 04/22/17 08:09 Lymphocytes # 2.3 k/uL (1.0-4.8) 04/22/17 08:09 Monocytes # 0.3 k/uL (0-1.0) 04/22/17 08:09 Eosinophils # 0.2 k/uL (0-0.7) 04/22/17 08:09 Basophils # 0.0 k/uL (0-0.2) 04/22/17 08:09 Manual Slide Review Performed 04/22/17 08:09 Hypochromasia Slight 04/22/17 08:09 Poikilocytosis (manual Present 04/22/17 08:09 Crenated Cell Present 04/22/17 08:09 PT 10.5 sec (9.0-12.0) 04/21/17 16:06 INR 1.0 (<1.1) 04/21/17 16:06 APTT 26.0 sec (22.0-30.0) 04/21/17 16:06 Sodium 143 mmol/L (137-145) 04/22/17 08:09 Potassium 4.6 mmol/L (3.5-5.1) 04/22/17 08:09 Chloride 114 mmol/L (98-107) H 04/22/17 08:09 Carbon Dioxide 23 mmol/L (22-30) 04/22/17 08:09 Anion Gap 6 mmol/L 04/22/17 08:09 BUN 14 mg/dL (9-20) 04/22/17 08:09 Creatinine 0.65 mg/dL (0.66-1.25) L 04/22/17 08:09 Est GFR (MDRD) Af Amer >60 (>60 ml/min/1.73 sqM) 04/22/17 08:09 Est GFR (MDRD) Non-Af >60 (>60 ml/min/1.73 sqM) 04/22/17 08:09 Glucose 73 mg/dL (74-99) L 04/22/17 08:09 POC Glucose (mg/dL) 231 mg/dL (75-99) H 04/22/17 20:50 POC Glu Mechanical Product Engineer Gladys Walker 04/22/17 20:50 Plasma Lactic Acid Ayo 1.1 mmol/L (0.7-2.0) 04/21/17 16:06 Calcium 8.9 mg/dL (8.4-10.2) 04/22/17 08:09 Total Bilirubin 0.3 mg/dL (0.2-1.3) 04/22/17 08:09 AST 23 U/L (17-59) 04/22/17 08:09 ALT 24 U/L (21-72) 04/22/17 08:09 Alkaline Phosphatase 60 U/L (38-126) 04/22/17 08:09 Total Protein 5.6 g/dL (6.3-8.2) L 04/22/17 08:09 Albumin 2.6 g/dL (3.5-5.0) L 04/22/17 08:09 Urine Color Yellow 04/21/17 17:00 Urine Appearance Clear (Clear) 04/21/17 17:00 Urine pH 5.5 (5.0-8.0) 04/21/17 17:00 Ur Specific [place] 1.008 (1.001-1.035) 04/21/17 17:00 Urine Protein Trace (Negative) H 04/21/17 17:00 Urine Glucose (UA) Trace (Negative) H 04/21/17 17:00 Urine Ketones Negative (Negative) 04/21/17 17:00 Urine Blood Negative (Negative) 04/21/17 17:00 Urine Nitrite Negative (Negative) 04/21/17 17:00 Urine Bilirubin Negative (Negative) 04/21/17 17:00 Urine Urobilinogen <2.0 mg/dL (<2.0) 04/21/17 17:00 Ur Leukocyte Esterase Negative (Negative) 04/21/17 17:00 Urine Opiates Screen Detected (NotDetected) H 04/22/17 13:05 Ur Oxycodone Screen Not Detected (NotDetected) 04/22/17 13:05 Urine Methadone Screen Detected (NotDetected) H 04/22/17 13:05 Ur Propoxyphene Screen Not Detected (NotDetected) 04/22/17 13:05 Ur Barbiturates Screen Not Detected (NotDetected) 04/22/17 13:05 U Tricyclic Antidepress Detected (NotDetected) H 04/22/17 13:05 Ur Phencyclidine Scrn Not Detected (NotDetected) 04/22/17 13:05 Ur Amphetamines Screen Not Detected (NotDetected) 04/22/17 13:05 U Methamphetamines Scrn Not Detected (NotDetected) 04/22/17 13:05 U Benzodiazepines Scrn Not Detected (NotDetected) 04/22/17 13:05 Urine Cocaine Screen Not Detected (NotDetected) 04/22/17 13:05 U Marijuana (THC) Screen Not Detected (NotDetected) 04/22/17 13:05 Microbiology 04/21/17 16:06 Blood Blood Culture - Preliminary No Growth after 24 hours 04/21/17 16:06 Hip - Right Gram Stain - Preliminary 04/21/17 16:06 Hip - Right Wound Culture - Preliminary Gram Neg Bacilli 04/21/17 17:00 Urine,Catheterized Urine Culture - Preliminary Assessment and Plan (1) Hypoglycemia Narrative/Plan: 56-year-old male presents to the hospital with evidence of significant symptomatic hypo glycemia. Markedly different than his last stay when he had evidence of diabetic ketoacidosis with his blood sugar 1359. Patient has chronic medical noncompliance The coccyx ulceration is with a large area of necrosis that will require more extensive debridement when he is healthier. The cultures are reviewed There has been evidence of a multidrug resistant pseudomonas aeruginosa that will not be treatable at this time. The other pathogens that include VRE and MRSA will be treated with daptomycin. Cultures in progress Dakin solution to the large coccyx ulceration will be utilized for now. Status: Acute
[2017-04-23] MEDS: DAPTOmycin 500 MG in SODIUM CHLORIDE 0.9% 50 ML IV SCH ×2 (00:21→21:04)
[2017-04-23] MEDS: METHADONE 10 MG TAB PO SCH ×4 (00:21→23:37)
[2017-04-23] MEDS: SODIUM HYPOCHLORITE 0.5% 480 ML BOT MISCELLANE SCH ×3 (00:23→21:03)
[2017-04-23] MEDS: COLLAGENASE 250 UNIT/GM OINTMENT 30 GM TUBE TOPICAL SCH ×2 (00:23→20:58)
[2017-04-23] MEDS: SODIUM CHLORIDE 0.9% 1,000 ML IV SCH ×3 (01:00→17:30)
[2017-04-23 02:02] LABS: Glucose,Whole Blood 167 mg/dL (75-99)
[2017-04-23] MEDS: VANCOMYCIN 1,000 MG in SODIUM CHLORIDE 0.9% 250 ML IVPB SCH (05:40)
[2017-04-23 07:38] LABS: Glucose,Whole Blood <20 mg/dL (75-99)
[2017-04-23 07:50] LABS: Glucose,Whole Blood <20 mg/dL (75-99)
[2017-04-23 07:50] LABS: Glucose,Whole Blood <20 mg/dL (75-99)
[2017-04-23] MEDS: INSULIN LISPRO (humaLOG) 300 UNIT/3 ML VIAL SQ SCH ×3 (08:04→17:28)
[2017-04-23 08:12] LABS: Glucose,Whole Blood 92 mg/dL (75-99)
[2017-04-23 08:38] LABS: Anion Gap 6 mmol/L; Blood Urea Nitrogen 20 mg/dL (9-20); Calcium 8.5 mg/dL (8.4-10.2); Carbon Dioxide 19 mmol/L (22-30); Chloride 116 mmol/L (98-107); Glucose 62 mg/dL (74-99); Non-African American GFR(MDRD) >60 (>60 ml/min/1.73 sqM); Sodium 141 mmol/L (137-145)
[2017-04-23] MEDS: GABAPENTIN 300 MG CAP PO SCH ×3 (08:44→21:04)
[2017-04-23] MEDS: DULoxetine HCL 30 MG CAPSULE.DR PO SCH ×2 (08:44→21:03)
[2017-04-23] MEDS: DOXYCYCLINE 50 MG CAP PO SCH ×2 (08:44→21:02)
[2017-04-23] MEDS: MULTIVITAMINS, THERA 1 EACH TAB PO SCH (08:45)
[2017-04-23] MEDS: hydrALAZINE HCL 50 MG TAB PO SCH ×3 (08:45→21:04)
[2017-04-23] MEDS: PANTOPRAZOLE 40 MG TABLET PO SCH (08:45)
[2017-04-23] MEDS: LOSARTAN 25 MG TAB PO SCH (08:46)
[2017-04-23] MEDS: CARVEDILOL 6.25 MG TAB PO SCH ×2 (08:46→21:03)
[2017-04-23] MEDS: ASPIRIN 81 MG CHEW PO SCH (08:46)
[2017-04-23 11:15] LABS: Glucose,Whole Blood 161 mg/dL (75-99)
--- NOTE | 2017-04-23 16:14 | P.PN ---
Subjective Principal diagnosis: Hypoglycemia, draining sacral decubitus ulcer, non-compliance Ambrose is a patient well-known to our practice who has been noncompliant off and on for some time both with his diabetes, his pain meds, and wound care He has typically presented to the hospital multiple times usually with high blood sugars and most recently in DKA with a blood sugar of 1328 I believe. Suddenly he presents with blood sugars of less than 20 at this time, I will attempt to decrease his basal insulin Levemir from 38 units at at bedtime to 33 units will reevaluate his insulin needs by continuing to cover ridges with the sliding scale hopefully this will lead give us some insight as to what's going on. Also will consult returned telephone equipment appraiser and dietitian to do calorie counts on patient recommend caloric needs as well as educate patient on diabetes and recognizing what to do when. Objective - Vital Signs Vital signs: Vital Signs Temp 98.2 F 04/23/17 07:00 Pulse 79 04/23/17 07:00 Resp 18 04/23/17 07:00 BP 155/85 04/23/17 07:00 Pulse Ox 96 04/23/17 07:00 Intake & Output 04/22/17 04/23/17 04/23/17 18:59 06:59 18:59 Intake Total 250 Balance 250 Weight 53.07 kg Intake: Oral 250 Other: Voiding Method Urinal Urinal # Voids 3 1 - Exam General: [Patient awake, alert and oriented times 3. Patient in no acute distress.] HEENT: [PERRL. EOMI. No pharyngeal erythema or exudate.] Neck: [No adenopathy.] Cardiac: [Heart regular in rate and rhythm. No S3. No S4. No clicks, rubs. No murmur.] Lungs: [Clear to auscultation bilaterally.] Abdomen: [No mass. No organomegaly. Bowel sounds presnt and normoactive in all 4 quadrants.] Extremes: Bilateral AKA, sacral decubitus ulcer approximately 9 cm x 8 cm to the bone with significant drainage : [] Musculoskeletal: [No joint erythema, edema or tenderness.] Skin: [No rash.] Neurologic: [No lateralizing deficits. CN II - XII grossly intact.] Lymphatic: [No adenopathy.] - Labs CBC & Chem 7: 04/22/17 08:09 04/23/17 07:47 Labs: Abnormal Lab Results - Last 24 Hours (Table) 04/22/17 04/22/17 04/23/17 Range/Units 17:25 20:50 02:01 Chloride (98-107) mmol/L Carbon Dioxide (22-30) mmol/L Glucose (74-99) mg/dL POC Glucose (mg/dL) 230 H 231 H 167 H (75-99) mg/dL 04/23/17 04/23/17 04/23/17 Range/Units 07:36 07:38 07:41 Chloride (98-107) mmol/L Carbon Dioxide (22-30) mmol/L Glucose (74-99) mg/dL POC Glucose (mg/dL) <20 L <20 L <20 L (75-99) mg/dL 04/23/17 04/23/17 Range/Units 07:47 11:09 Chloride 116 H (98-107) mmol/L Carbon Dioxide 19 L (22-30) mmol/L Glucose 62 L (74-99) mg/dL POC Glucose (mg/dL) 161 H (75-99) mg/dL Microbiology - Last 24 Hours (Table) 04/21/17 17:00 Urine Culture - Final Urine,Catheterized 04/21/17 16:06 Blood Culture - Preliminary Blood No Growth after 24 hours 04/21/17 16:06 Gram Stain - Preliminary Hip - Right Wound Culture - Preliminary Gram Neg Bacilli Assessment and Plan Plan: Diabetes mellitus, hypoglycemic Episode, patient on diabetic diet appropriate medicines resumed Known sacral decubitus ulcer patient is currently on daptomycin as well as doxycycline Cultures were reperformed again Consultation with Dr. Becerra infectious disease and wound management Continue aggressive pain management Consults neighborhood planner for placement
[2017-04-23 17:15] LABS: Glucose,Whole Blood 321 mg/dL (75-99)
[2017-04-23] MEDS ORDERED: LEVOFLOXACIN 750 MG TAB PO SCH (18:00)
[2017-04-23] MEDS ORDERED: INSULIN DETEMIR 100 UNIT/ML 10 ML VIAL SQ SCH (21:00)
[2017-04-23 21:07] LABS: Glucose,Whole Blood 197 mg/dL (75-99)
[2017-04-23] MEDS: QUEtiapine 200 MG TAB PO SCH (22:17)
[2017-04-23] MEDS: INSULIN DETEMIR 100 UNIT/ML 10 ML VIAL SQ SCH ×2 (22:22→23:17)
[2017-04-23 22:54] LABS: Glucose,Whole Blood 297 mg/dL (75-99)
[2017-04-23] MEDS: CALCIUM CARBONATE 500 MG CHEWABLE PO PRN (23:16)
[2017-04-24 03:06] LABS: Glucose,Whole Blood 276 mg/dL (75-99)
[2017-04-24 05:36] LABS: Glucose,Whole Blood 212 mg/dL (75-99)
[2017-04-24] MEDS: SODIUM CHLORIDE 0.9% 1,000 ML IV SCH ×3 (05:56→21:04)
[2017-04-24 07:19] LABS: Glucose,Whole Blood 185 mg/dL (75-99)
[2017-04-24] MEDS: DULoxetine HCL 30 MG CAPSULE.DR PO SCH ×2 (08:00→21:03)
[2017-04-24] MEDS: DOXYCYCLINE 50 MG CAP PO SCH ×2 (08:00→21:03)
[2017-04-24] MEDS: GABAPENTIN 300 MG CAP PO SCH ×3 (08:01→21:03)
[2017-04-24] MEDS: PANTOPRAZOLE 40 MG TABLET PO SCH (08:01)
[2017-04-24] MEDS: ASPIRIN 81 MG CHEW PO SCH (08:01)
[2017-04-24] MEDS: MULTIVITAMINS, THERA 1 EACH TAB PO SCH (08:01)
[2017-04-24] MEDS: INSULIN LISPRO (humaLOG) 300 UNIT/3 ML VIAL SQ SCH ×3 (08:06→18:15)
[2017-04-24] MEDS: METHADONE 10 MG TAB PO SCH ×2 (08:06→17:14)
[2017-04-24] MEDS: SODIUM HYPOCHLORITE 0.5% 480 ML BOT MISCELLANE SCH ×2 (08:15→21:03)
[2017-04-24] MEDS: LOSARTAN 25 MG TAB PO SCH (08:16)
[2017-04-24] MEDS: CARVEDILOL 6.25 MG TAB PO SCH ×2 (08:16→21:04)
[2017-04-24] MEDS: hydrALAZINE HCL 50 MG TAB PO SCH ×3 (10:07→21:05)
--- NOTE | 2017-04-24 11:09 | P.PN ---
Subjective Principal diagnosis: Hypoglycemia, draining sacral decubitus ulcer, non-compliance Ambrose is a patient well-known to our practice who has been noncompliant off and on for some time both with his diabetes, his pain meds, and wound care He has typically presented to the hospital multiple times usually with high blood sugars and most recently in DKA with a blood sugar of 1328 I believe. Suddenly he presents with blood sugars of less than 20 at this time, I will attempt to decrease his basal insulin Levemir from 38 units at at bedtime to 28 units, starting last night, will reevaluate his insulin needs by continuing to cover ridges with the sliding scale hopefully this will lead give us some insight as to what's going on. Also will consult uncrater and dietitian to do calorie counts on patient recommend caloric needs as well as educate patient on diabetes and recognizing what to do when. Objective - Vital Signs Vital signs: Vital Signs Temp 97.8 F 04/24/17 07:00 Pulse 78 04/24/17 07:00 Resp 14 04/24/17 07:00 BP 106/66 04/24/17 07:00 Pulse Ox 95 04/24/17 07:00 Intake & Output 04/23/17 04/24/17 04/24/17 18:59 06:59 18:59 Output Total 1300 500 Balance -1300 -500 Output: Urine 1300 500 Other: Voiding Method Urinal Urinal # Voids 1 1 - Exam General: [Patient awake, alert and oriented times 3. Patient in no acute distress.] HEENT: [PERRL. EOMI. No pharyngeal erythema or exudate.] Neck: [No adenopathy.] Cardiac: [Heart regular in rate and rhythm. No S3. No S4. No clicks, rubs. No murmur.] Lungs: [Clear to auscultation bilaterally.] Abdomen: [No mass. No organomegaly. Bowel sounds presnt and normoactive in all 4 quadrants.] Extremes: Bilateral AKA, sacral decubitus ulcer approximately 9 cm x 8 cm to the bone with significant drainage : [] Musculoskeletal: [No joint erythema, edema or tenderness.] Skin: [No rash.] Neurologic: [No lateralizing deficits. CN II - XII grossly intact.] Lymphatic: [No adenopathy.] - Labs CBC & Chem 7: 04/22/17 08:09 04/23/17 07:47 Labs: Abnormal Lab Results - Last 24 Hours (Table) 04/23/17 04/23/17 04/23/17 Range/Units 11:09 17:10 21:01 POC Glucose (mg/dL) 161 H 321 H 197 H (75-99) mg/dL 04/23/17 04/24/17 04/24/17 Range/Units 22:51 03:04 05:32 POC Glucose (mg/dL) 297 H 276 H 212 H (75-99) mg/dL 04/24/17 Range/Units 07:11 POC Glucose (mg/dL) 185 H (75-99) mg/dL Microbiology - Last 24 Hours (Table) 04/21/17 16:06 Gram Stain - Preliminary Hip - Right Wound Culture - Preliminary Pseudomonas aeruginosa Group D Enterococcus 04/21/17 16:06 Blood Culture - Preliminary Blood No Growth after 48 hours Assessment and Plan Plan: Diabetes mellitus, hypoglycemic Episode, patient on diabetic diet appropriate medicines resumed Known sacral decubitus ulcer patient is currently on daptomycin as well as doxycycline Cultures were reperformed again, yielding multidrug resistant Pseudomonas which is untreatable at this time Consultation with Dr. Becerra infectious disease and wound management Continue aggressive pain management Consults menu planner for placement
[2017-04-24 11:12] LABS: Glucose,Whole Blood 172 mg/dL (75-99)
[2017-04-24] MEDS: METHADONE 10 MG TAB PO PRN (12:24)
[2017-04-24 17:07] LABS: Glucose,Whole Blood 112 mg/dL (75-99)
[2017-04-24] MEDS: COLLAGENASE 250 UNIT/GM OINTMENT 30 GM TUBE TOPICAL SCH (21:01)
[2017-04-24] MEDS: DAPTOmycin 500 MG in SODIUM CHLORIDE 0.9% 50 ML IV SCH (21:03)
[2017-04-24 21:50] LABS: Glucose,Whole Blood 115 mg/dL (75-99)
[2017-04-24] MEDS: INSULIN DETEMIR 100 UNIT/ML 10 ML VIAL SQ SCH (22:15)
[2017-04-24] MEDS: QUEtiapine 200 MG TAB PO SCH (22:15)
[2017-04-25 00:17] LABS: Glucose,Whole Blood 221 mg/dL (75-99)
[2017-04-25 02:05] LABS: Glucose,Whole Blood 214 mg/dL (75-99)
[2017-04-25 07:23] LABS: Glucose,Whole Blood 195 mg/dL (75-99)
[2017-04-25] MEDS: INSULIN LISPRO (humaLOG) 300 UNIT/3 ML VIAL SQ SCH ×3 (08:28→17:20)
[2017-04-25] MEDS: hydrALAZINE HCL 50 MG TAB PO SCH ×3 (08:28→22:09)
[2017-04-25] MEDS: DULoxetine HCL 30 MG CAPSULE.DR PO SCH ×2 (08:28→20:42)
[2017-04-25] MEDS: SODIUM HYPOCHLORITE 0.5% 480 ML BOT MISCELLANE SCH (08:28)
[2017-04-25] MEDS: CARVEDILOL 6.25 MG TAB PO SCH ×2 (08:28→20:46)
[2017-04-25] MEDS: DOXYCYCLINE 50 MG CAP PO SCH ×2 (08:28→20:41)
[2017-04-25] MEDS: PANTOPRAZOLE 40 MG TABLET PO SCH (08:28)
[2017-04-25] MEDS: METHADONE 10 MG TAB PO SCH ×3 (08:28→15:16)
[2017-04-25] MEDS: GABAPENTIN 300 MG CAP PO SCH ×3 (08:28→22:09)
[2017-04-25] MEDS: MULTIVITAMINS, THERA 1 EACH TAB PO SCH (08:28)
[2017-04-25] MEDS: LOSARTAN 25 MG TAB PO SCH (08:28)
[2017-04-25] MEDS: ASPIRIN 81 MG CHEW PO SCH (08:28)
[2017-04-25] MEDS: SODIUM CHLORIDE 0.9% 1,000 ML IV SCH ×2 (08:29→17:19)
[2017-04-25] MEDS ORDERED: LOSARTAN 25 MG TAB ONE (09:00)
[2017-04-25] MEDS ORDERED: MULTIVITAMINS, THERA 1 EACH TAB ONE (09:00)
[2017-04-25] MEDS ORDERED: CARVEDILOL 6.25 MG TAB ONE (09:00)
[2017-04-25] MEDS ORDERED: ASPIRIN 81 MG CHEW ONE (09:00)
[2017-04-25] MEDS ORDERED: PANTOPRAZOLE 40 MG TABLET PO ONE (09:00)
[2017-04-25] MEDS ORDERED: GABAPENTIN 300 MG CAP ONE (09:00)
[2017-04-25] MEDS ORDERED: DULoxetine HCL 30 MG CAPSULE.DR PO ONE (09:00)
[2017-04-25] MEDS ORDERED: METHADONE 10 MG TAB ONE (09:00)
[2017-04-25] MEDS ORDERED: DOXYCYCLINE 50 MG CAP ONE (09:00)
[2017-04-25] MEDS ORDERED: hydrALAZINE HCL 50 MG TAB ONE (09:00)
--- NOTE | 2017-04-25 10:33 | P.PN ---
Subjective Principal diagnosis: Hypoglycemia, draining sacral decubitus ulcer, non-compliance Ambrose is a patient well-known to our practice who has been noncompliant off and on for some time both with his diabetes, his pain meds, and wound care He has typically presented to the hospital multiple times usually with high blood sugars and most recently in DKA with a blood sugar of 1328 I believe. Suddenly he presents with blood sugars of less than 20 at this time, I will attempt to decrease his basal insulin Levemir from 38 units at at bedtime to 20 units, starting last night, will reevaluate his insulin needs by continuing to cover with the sliding scale hopefully. Also will consult wellness educator and dietitian to do calorie counts on patient recommend caloric needs as well as educate patient on diabetes and recognizing what to do when. Objective - Vital Signs Vital signs: Vital Signs Temp 98.4 F 04/25/17 07:00 Pulse 74 04/25/17 07:00 Resp 16 04/25/17 07:00 BP 133/71 04/25/17 07:00 Pulse Ox 95 04/25/17 07:00 Intake & Output 04/24/17 04/25/17 04/25/17 18:59 06:59 18:59 Intake Total 50 Output Total 2300 1700 Balance -2300 -1650 Intake: IV 50 DAPTOmycin 500 mg In 50 Sodium Chloride 0.9% 50 ml @ 100 mls/hr IV Q24H [facility] Rx#:[id number] Output: Urine 2300 1700 Other: Voiding Method Urinal Urinal # Voids 2 1 - Exam General: [Patient awake, alert and oriented times 3. Patient in no acute distress.] HEENT: [PERRL. EOMI. No pharyngeal erythema or exudate.] Neck: [No adenopathy.] Cardiac: [Heart regular in rate and rhythm. No S3. No S4. No clicks, rubs. No murmur.] Lungs: [Clear to auscultation bilaterally.] Abdomen: [No mass. No organomegaly. Bowel sounds presnt and normoactive in all 4 quadrants.] Extremes: Bilateral AKA, sacral decubitus ulcer approximately 9 cm x 8 cm to the bone with significant drainage : [] Musculoskeletal: [No joint erythema, edema or tenderness.] Skin: [No rash.] Neurologic: [No lateralizing deficits. CN II - XII grossly intact.] Lymphatic: [No adenopathy.] - Labs CBC & Chem 7: 04/22/17 08:09 04/23/17 07:47 Labs: Abnormal Lab Results - Last 24 Hours (Table) 04/24/17 04/24/17 04/24/17 Range/Units 11:10 17:06 21:14 POC Glucose (mg/dL) 172 H 112 H 115 H (75-99) mg/dL 04/24/17 04/25/17 04/25/17 Range/Units 23:58 01:54 07:15 POC Glucose (mg/dL) 221 H 214 H 195 H (75-99) mg/dL Microbiology - Last 24 Hours (Table) 04/21/17 16:06 Gram Stain - Final Hip - Right Wound Culture - Final Pseudomonas aeruginosa Enterococcus faecalis 04/21/17 16:06 Blood Culture - Preliminary Blood No Growth after 72 hours Assessment and Plan Plan: Diabetes mellitus, hypoglycemic Episode, patient on diabetic diet appropriate medicines resumed Known sacral decubitus ulcer patient is currently on daptomycin as well as doxycycline Cultures were reperformed again, yielding multidrug resistant Pseudomonas which is untreatable at this time Consultation with Dr. Becerra infectious disease and wound management Continue aggressive pain management Consults c4 planner for placement
[2017-04-25 11:51] LABS: Glucose,Whole Blood 315 mg/dL (75-99)
[2017-04-25 17:06] LABS: Glucose,Whole Blood 257 mg/dL (75-99)
[2017-04-25] MEDS: METHADONE 10 MG TAB PO PRN (19:24)
[2017-04-25] MEDS: QUEtiapine 200 MG TAB PO SCH (20:42)
[2017-04-25] MEDS: COLLAGENASE 250 UNIT/GM OINTMENT 30 GM TUBE TOPICAL SCH (20:42)
[2017-04-25] MEDS: INSULIN DETEMIR 100 UNIT/ML 10 ML VIAL SQ SCH (20:48)
[2017-04-25 20:51] LABS: Glucose,Whole Blood 330 mg/dL (75-99)
[2017-04-25] MEDS: DAPTOmycin 500 MG in SODIUM CHLORIDE 0.9% 50 ML IV SCH (22:02)
[2017-04-26] MEDS: METHADONE 10 MG TAB PO SCH ×2 (00:29→08:11)
[2017-04-26] MEDS: SODIUM HYPOCHLORITE 0.5% 480 ML BOT MISCELLANE SCH ×2 (00:30→08:11)
[2017-04-26] MEDS: SODIUM CHLORIDE 0.9% 1,000 ML IV SCH ×2 (00:37→10:41)
[2017-04-26 02:48] LABS: Glucose,Whole Blood 256 mg/dL (75-99)
[2017-04-26 07:29] LABS: Glucose,Whole Blood 102 mg/dL (75-99)
[2017-04-26 07:34] VITALS: BP 112/63; PULSE 65; RESP 16; TEMP 96.9
[2017-04-26] MEDS: PANTOPRAZOLE 40 MG TABLET PO SCH (08:10)
[2017-04-26] MEDS: GABAPENTIN 300 MG CAP PO SCH (08:10)
[2017-04-26] MEDS: DULoxetine HCL 30 MG CAPSULE.DR PO SCH (08:10)
[2017-04-26] MEDS: hydrALAZINE HCL 50 MG TAB PO SCH (08:10)
[2017-04-26] MEDS: MULTIVITAMINS, THERA 1 EACH TAB PO SCH (08:10)
[2017-04-26] MEDS: LOSARTAN 25 MG TAB PO SCH (08:10)
[2017-04-26] MEDS: INSULIN LISPRO (humaLOG) 300 UNIT/3 ML VIAL SQ SCH ×2 (08:11→13:04)
[2017-04-26] MEDS: DOXYCYCLINE 50 MG CAP PO SCH (08:11)
[2017-04-26] MEDS: ASPIRIN 81 MG CHEW PO SCH (08:11)
[2017-04-26] MEDS: CARVEDILOL 6.25 MG TAB PO SCH (08:11)
--- NOTE | 2017-04-26 10:49 | P.DS ---
Providers Date of admission: 04/21/17 20:46 Expected date of discharge: 04/26/17 Attending physician: Jeffry Barcenas Consults: 04/22/17 18:59 Consult Physician Routine Consulting Provider: Syed Becerra Consult Reason/Comments: Large sacral decubitus ulcer Do you want consulting provider notified?: Yes Primary care physician: [facility] [place][Note 3] Course: Blood sugars stabilized Hypertension is stable General: [Patient awake, alert and oriented times 3. Patient in no acute distress.] HEENT: [PERRL. EOMI. No pharyngeal erythema or exudate.] Neck: [No adenopathy.] Cardiac: [Heart regular in rate and rhythm. No S3. No S4. No clicks, rubs. No murmur.] Lungs: [Clear to auscultation bilaterally.] Abdomen: [No mass. No organomegaly. Bowel sounds presnt and normoactive in all 4 quadrants.] Extremes: Bilateral AKA, draining sacral decubitus ulcer approximately 8 cm x 8 cm exposed bone and purulent drainage : [] Musculoskeletal: [No joint erythema, edema or tenderness.] Skin: [No rash.] Neurologic: [No lateralizing deficits. CN II - XII grossly intact.] Lymphatic: [No adenopathy.] Patient Condition at Discharge: Stable Plan - Discharge Summary New Discharge Prescriptions: No Action Carvedilol [Coreg] 6.25 mg PO BID Gabapentin [Neurontin] 300 mg PO TID Omeprazole 20 mg PO DAILY Multivitamins, Thera [Multivitamin (formulary)] 1 tab PO DAILY Methadone [Dolophine] 10 mg PO Q8HR #21 tab Insulin Detemir [Levemir] 38 unit SQ HS Atorvastatin [Lipitor] 40 mg PO HS Aspirin 81 mg PO DAILY chew Calcium Carbonate [Tums] 500 mg PO TID PRN #0 chew PRN Reason: Heartburn Doxycycline Monohydrate [Monodox] 100 mg PO Q12HR #28 cap Collagenase [Santyl] 1 applic TOPICAL DAILY DULoxetine HCL [Cymbalta] 30 mg PO BID hydrALAZINE HCL [Apresoline] 50 mg PO TID Insulin Glargine [Lantus] 38 unit SQ DAILY INSULIN LISPRO (humaLOG) [humaLOG (formulary)] 8 units SQ AC-TID Losartan Potassium 25 mg PO DAILY Levofloxacin [Levaquin] 750 mg PO DAILY #10 tab Discharge Medication List Carvedilol [Coreg] 6.25 mg PO BID 06/13/14 [History] Gabapentin [Neurontin] 300 mg PO TID 01/28/16 [History] Omeprazole 20 mg PO DAILY 06/12/16 [History] Multivitamins, Thera [Multivitamin (formulary)] 1 tab PO DAILY 10/13/16 [History ] Methadone [Dolophine] 10 mg PO Q8HR #21 tab 11/12/16 [Rx] Insulin Detemir [Levemir] 38 unit SQ HS 01/14/17 [History] Atorvastatin [Lipitor] 40 mg PO HS 02/04/17 [History] Aspirin 81 mg PO DAILY chew 02/10/17 [Rx] Calcium Carbonate [Tums] 500 mg PO TID PRN #0 chew 02/10/17 [Rx] Doxycycline Monohydrate [Monodox] 100 mg PO Q12HR #28 cap 04/01/17 [Rx] Collagenase [Santyl] 1 applic TOPICAL DAILY 04/05/17 [History] DULoxetine HCL [Cymbalta] 30 mg PO BID 04/06/17 [History] INSULIN LISPRO (humaLOG) [humaLOG (formulary)] 8 units SQ AC-TID 04/06/17 [ History] Insulin Glargine [Lantus] 38 unit SQ DAILY 04/06/17 [History] Losartan Potassium 25 mg PO DAILY 04/06/17 [History] hydrALAZINE HCL [Apresoline] 50 mg PO TID 04/06/17 [History] Levofloxacin [Levaquin] 750 mg PO DAILY #10 tab 04/12/17 [Rx] Follow up Appointment(s)/Referral(s): [facility], [NON-STAFF] - As Needed Brent Chong MD [Primary Care Provider] - 1-2 days Patient Instructions/Handouts: Type 2 Diabetes in Adults (DC), Wound Healing and Your Diet (DC)
--- NOTE | 2017-04-26 11:56 | CDI ---
In responding to this query, please exercise your independent professional judgment. The [facility] Coding Staff and Clinical Documentation Specialists appreciate your assistance in clarifying documentation, maintaining compliance with coding guidelines, accurately documenting patients condition and capturing severity of illness. The fact that a question is asked does not imply that any particular answer is desired or expected. Communication forms are a method of clarifying documentation and are not made part of the Legal Health Record. Thank you in advance for your clarification. Last Revision, September 2015 Suyapa Mata [address] [facility] [place] [address] Documentation Clarification Form Date: 04/26/2017 11:20:00 AM From: Zoraida Dillard Admit Date: 04/21/2017 8:46:00 PM Patient Name: Ambrose Berry Visit Number: [id number] Discharge Date: Dr. Jeffry Barcenas Malnutrition has been documented in the dietary consult. 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 Assessment: decreased appetite increased needs, sunken orbital/temporal wasting , inability to manage self-care. Labs: Albumin 3.4, 2.6 Total Protein 6.6, 5.6 Current BMI: 15.0 Insufficient energy intake: Yes Treatment: Monitor intake Dietary Consult: Yes Lab monitoring: In your professional opinion, can you please clarify if these findings signify one of the following conditions? Mild Protein Malnutrition Mild Protein-Calorie Malnutrition Moderate Protein Malnutrition Moderate Protein-Calorie Malnutrition Severe Protein Malnutrition Severe Protein-Calorie Malnutrition Other condition, please specify Unable to determine Please document as an addendum to your discharge summary in order to capture severity of illness and risk of mortality. Include clinical findings that support your diagnosis. FYI: Press F11 to launch patient chart. Place X here if this finding has no clinical significance, is not applicable or if you are not able to provide any additional documentation. MTDD
[2017-04-26 12:35] LABS: Glucose,Whole Blood 204 mg/dL (75-99)
--- NOTE | 2017-05-11 10:02 | CDI ---
In responding to this query, please exercise your independent professional judgment. The [facility] Coding Staff and Clinical Documentation Specialists appreciate your assistance in clarifying documentation, maintaining compliance with coding guidelines, accurately documenting patients condition and capturing severity of illness. The fact that a question is asked does not imply that any particular answer is desired or expected. Communication forms are a method of clarifying documentation and are not made part of the Legal Health Record. Thank you in advance for your clarification. Last Revision, September 2015 Suyapa Mata [address] [facility] [place] [address] Documentation Clarification Form Date: 04/26/2017 11:20:00 AM From: Zoriada Dillard Admit Date: 04/21/2017 8:46:00 PM Patient Name: Ambrose Berry Visit Number: [id number] Discharge Date: Dr. Jeffry Barcenas Malnutrition has been documented in the dietary consult. 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 Assessment: decreased appetite, increased needs, sunken orbitals/temporal wasting, inability to manage self-care. Labs: Albumin 3.4, 2.6 Total Protein 6.6, 5.6 Current BMI: 15.0 Insufficient energy intake: Yes Treatment: Monitor intake Dietary Consult: Yes Lab monitoring: In your professional opinion, can you please clarify if these findings signify one of the following conditions? Mild Protein Malnutrition Mild Protein-Calorie Malnutrition Moderate Protein Malnutrition Moderate Protein-Calorie Malnutrition Severe Protein Malnutrition Severe Protein-Calorie Malnutrition Other condition, please specify Unable to determine Please document as an addendum to your discharge summary in order to capture severity of illness and risk of mortality. Include clinical findings that support your diagnosis. FYI: Press F11 to launch patient chart. Place X here if this finding has no clinical significance, is not applicable or if you are not able to provide any additional documentation. MTDD
--- NOTE | 2017-05-21 11:55 | CDI ---
In responding to this query, please exercise your independent professional judgment. The [facility] Coding Staff and Clinical Documentation Specialists appreciate your assistance in clarifying documentation, maintaining compliance with coding guidelines, accurately documenting patients condition and capturing severity of illness. The fact that a question is asked does not imply that any particular answer is desired or expected. Communication forms are a method of clarifying documentation and are not made part of the Legal Health Record. Thank you in advance for your clarification. Last Revision, September 2015 Suyapa Mata [address] [facility] [place] [address] Documentation Clarification Form Date: 04/26/2017 11:20:00 AM From: Zoraida Dillard Admit Date: 04/21/2017 8:46:00 PM Patient Name: Ambrose Berry Visit Number: [id number] Discharge Date: Dr. Jeffry Barcenas Malnutrition has been documented in the dietary consult. 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 Assessment: decreased appetite, increased needs, sunken orbitals/temporal wasting, inability to manage self-care. Labs: Albumin 3.4, 2.6 Total Protein 6.6, 5.6 Current BMI: 15.0 Insufficient energy intake: Yes Treatment: Monitor intake Dietary Consult: Yes Lab monitoring: In your professional opinion, can you please clarify if these findings signify one of the following conditions? Mild Protein Malnutrition Mild Protein-Calorie Malnutrition Moderate Protein Malnutrition Moderate Protein-Calorie Malnutrition Severe Protein Malnutrition Severe Protein-Calorie Malnutrition Other condition, please specify Unable to determine Please document as an addendum to your discharge summary in order to capture severity of illness and risk of mortality. Include clinical findings that support your diagnosis. FYI: Press F11 to launch patient chart. Place X here if this finding has no clinical significance, is not applicable or if you are not able to provide any additional documentation. MTDD
== END 2017-04-26 13:02 | disposition home health service (06) | DRG 592 ==
LOC: EC 15:17 → 4MS4W 20:46
PROVIDERS: ADMIT Family Medicine; ATTEND Family Medicine
DX: L89.154 Pressure ulcer of sacral region, stage 4 (principal); E11.51 Type 2 diabetes mellitus with diabetic peripheral angiopathy without gangrene; E11.622 Type 2 diabetes mellitus with other skin ulcer; I10 Essential (primary) hypertension; B96.5 Pseudomonas (aeruginosa) (mallei) (pseudomallei) as the cause of diseases classified elsewhere; L08.9 Local infection of the skin and subcutaneous tissue, unspecified; E11.649 Type 2 diabetes mellitus with hypoglycemia without coma; F17.200 Nicotine dependence, unspecified, uncomplicated; J44.9 Chronic obstructive pulmonary disease, unspecified; B19.20 Unspecified viral hepatitis C without hepatic coma; G89.29 Other chronic pain; M54.9 Dorsalgia, unspecified; D64.9 Anemia, unspecified; G43.909 Migraine, unspecified, not intractable, without status migrainosus; F32.9 Major depressive disorder, single episode, unspecified; Z16.24 Resistance to multiple antibiotics; Z79.4 Long term (current) use of insulin; Z79.899 Other long term (current) drug therapy; Z79.82 Long term (current) use of aspirin; Z91.19 Patient's noncompliance with other medical treatment and regimen; Z89.612 Acquired absence of left leg above knee; Z89.611 Acquired absence of right leg above knee; Z86.14 Personal history of Methicillin resistant Staphylococcus aureus infection; Z88.1 Allergy status to other antibiotic agents; Z88.5 Allergy status to narcotic agent; Z82.49 Family history of ischemic heart disease and other diseases of the circulatory system; W07.XXXA Fall from chair, initial encounter; Y92.9 Unspecified place or not applicable
CPT/HCPCS: 36415; 70450; 71020; 72125; 80048; 80053; 80306; 81003; 83605; 85025; 85610; 85730; 87040; 87070; 87077; 87086; 87186; 87205; 93005; 96361; 96365; 96366; 96368; 96375; 99285

== ENCOUNTER 2017-05-10 18:35 | Emergency (ER) | payer OTHER ==
--- NOTE | 2017-05-10 19:22 | ED ---
General Adult HPI - General Chief complaint: Recheck/Abnormal Lab/Rx Stated complaint: abcess on coccyx Time Seen by Provider: 05/10/17 19:01 Source: patient, RN notes reviewed, old records reviewed Mode of arrival: wheelchair Limitations: no limitations - History of Present Illness Initial comments: If complaint and history of present illness a 56-year-old male reports that he is to take methadone 4 times a day recently he was decreased 3 times a day. Because of his pain he still ran through his 1 month allocation in 3 weeks. The patient is here requesting pain medication because he can't get methadone refilled at this time. He has had come the emergency room when similar problems of happened. He has not on a pain management contract with his doctor. - Related Data Home Medications Medication Instructions Recorded Confirmed Carvedilol [Coreg] 6.25 mg PO BID 06/13/14 04/29/17 Gabapentin [Neurontin] 300 mg PO TID 01/28/16 04/29/17 Omeprazole 20 mg PO DAILY 06/12/16 04/29/17 Multivitamins, Thera [Multivitamin 1 tab PO DAILY 10/13/16 04/29/17 (formulary)] Atorvastatin [Lipitor] 40 mg PO HS 02/04/17 04/29/17 Collagenase [Santyl] 1 applic TOPICAL DAILY 04/05/17 04/29/17 DULoxetine HCL [Cymbalta] 30 mg PO BID 04/06/17 04/29/17 INSULIN LISPRO (humaLOG) [humaLOG 8 units SQ AC-TID 04/06/17 04/29/17 (formulary)] Insulin Glargine [Lantus] 38 unit SQ DAILY 04/06/17 04/29/17 Losartan Potassium 25 mg PO DAILY 04/06/17 04/29/17 hydrALAZINE HCL [Apresoline] 50 mg PO TID 04/06/17 04/29/17 Previous Rx's Medication Instructions Recorded Methadone [Dolophine] 10 mg PO Q8HR #21 tab 11/12/16 Aspirin 81 mg PO DAILY chew 02/10/17 Calcium Carbonate [Tums] 500 mg PO TID PRN #0 chew 02/10/17 Doxycycline Monohydrate [Monodox] 100 mg PO Q12HR #28 cap 04/01/17 Levofloxacin [Levaquin] 750 mg PO DAILY #10 tab 04/12/17 Insulin Detemir [Levemir] 20 unit SQ HS vial 04/26/17 Hydrocodone/Acetaminophen [Williston 1 each PO Q6HR PRN #30 tab 05/10/17 5-325] Levofloxacin [Levaquin] 500 mg PO DAILY #7 tab 05/10/17 Allergies Allergy/AdvReac Type Severity Reaction Status Date / Time piperacillin [From Zosyn] Allergy Severe Dyspnea Verified 05/10/17 18:57 tazobactam [From Zosyn] Allergy Severe Dyspnea Verified 05/10/17 18:57 tramadol Allergy Unknown Verified 05/10/17 18:57 fentanyl AdvReac Lightheaded Verified 05/10/17 18:57 ketorolac tromethamine AdvReac Nausea Verified 05/10/17 18:57 [From Toradol] Review of Systems ROS Statement: Those systems with pertinent positive or pertinent negative responses have been documented in the HPI. Review of systems chronic pain. The patient's past medical problems significant for COPD, diabetes mellitus, chronic liver disease, L potassium disorder. Hepatitis C, surgeries tonsils and adenoids appendectomy heart catheterization and orthopedic surgeries bilateral AKA's. She denies any changes. He has chronic pain from a decubitus ulcer. ROS Other: All systems not noted in ROS Statement are negative. 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, left apical lung lesion, chronic back pain, chronic anemia, gastric ulcer disease , migraine, multiple infections including infections with MRSA, VRE, Pseudomonas multidrug resistant as evident in the wound cultures from the coccyx also wound rt leg-goes to [facility] , edentulous, History of Any Multi-Drug Resistant Organisms: MRSA, Other MDRO, VRE Date of last positivie culture/infection: 03/18/17-MRSA; 04/05/17-VRE; 04/21/17- MDRO-PSEUDOMONAS MDRO Source:: wounds Past Surgical History: Adenoidectomy, Appendectomy, Heart Catheterization, Hernia Repair, Orthopedic Surgery, Tonsillectomy Additional Past Surgical History / Comment(s): R BKA, R BKA revision to AKLeo, L AKA , rt arm picc line -since removed Past Anesthesia/Blood Transfusion Reactions: No Reported Reaction Additional Past Anesthesia/Blood Transfusion Reaction / Comment(s): Pt recently received blood- no reaction Past Psychological History: Depression Smoking Status: Current every day smoker Past Alcohol Use History: None Reported Past Drug Use History: None Reported - Past Family History Mother Family Medical History: Cancer Additional Family Medical History / Comment(s): Mother of brain cancer mets at the age of 68 yrs. Father Family Medical History: Cancer, Coronary Artery Disease (CAD) Additional Family Medical History / Comment(s): Father of throat cancer at the age of 70yrs. General Exam - General Exam Comments Initial Comments: She has no complaints other than chronic pain to his sacral area where he is a chronic sacral infection to the bone. Recently hospital for same. Being followed by infectious disease and is waiting to be referred to [facility]. Patient is recently been on Levaquin for urinary tract infection and some recurrence to his sacral infection. He'll be continued on Levaquin. Temp 100 pulse 95 respiratory rate 20 pulse ox 90% room air blood pressure 130/ 79 Limitations: no limitations Course Vital Signs 05/10/17 18:52 Temperature 100.0 F H Pulse Rate 95 Respiratory 20 Rate Blood Pressure 138/79 Medical Decision Making - Medical Decision Making Patient is requesting pain medication only. He'll be given Williston 5 is, #21 to be used 3 times daily over the next week to follow-up with his family physician also continued on Levaquin. Disposition Clinical Impression: Chronic pain, Decubitus ulcer of sacral area Disposition: HOME SELF-CARE Condition: Stable Instructions: How to Prevent Pressure Ulcers (ED), Pressure Ulcer (ED) Prescriptions: Hydrocodone/Acetaminophen [Williston 5-325] 1 each PO Q6HR PRN #30 tab PRN Reason: Pain Levofloxacin [Levaquin] 500 mg PO DAILY #7 tab Referrals: Brent Chong MD [Primary Care Provider] - 1-2 days
[2017-05-10 19:40] VITALS: BP 151/71; PULSE 93; RESP 18; TEMP 99.4
== END 2017-05-10 19:38 | disposition home or self-care (01) ==
LOC: EC 18:35
DX: G89.29 Other chronic pain (principal); L89.159 Pressure ulcer of sacral region, unspecified stage; J44.9 Chronic obstructive pulmonary disease, unspecified; E11.51 Type 2 diabetes mellitus with diabetic peripheral angiopathy without gangrene; R91.1 Solitary pulmonary nodule; B19.20 Unspecified viral hepatitis C without hepatic coma; F32.9 Major depressive disorder, single episode, unspecified; Z79.4 Long term (current) use of insulin; Z79.891 Long term (current) use of opiate analgesic; Z79.2 Long term (current) use of antibiotics; Z79.84 Long term (current) use of oral hypoglycemic drugs; Z88.5 Allergy status to narcotic agent; Z79.899 Other long term (current) drug therapy; Z88.6 Allergy status to analgesic agent; Z86.14 Personal history of Methicillin resistant Staphylococcus aureus infection; Z95.5 Presence of coronary angioplasty implant and graft; Z89.612 Acquired absence of left leg above knee; Z89.611 Acquired absence of right leg above knee; F17.200 Nicotine dependence, unspecified, uncomplicated; Z87.01 Personal history of pneumonia (recurrent)

== ENCOUNTER 2017-05-21 15:03 | Inpatient (IN) | payer OTHER ==
[2017-05-21] MEDS ORDERED: SODIUM CHLORIDE 0.9% 1,000 ML IV STA (15:16)
--- NOTE | 2017-05-21 15:24 | ED ---
General Adult HPI - General Stated complaint: ALTERED MENTAL STATUS Time Seen by Provider: 05/21/17 15:11 Source: patient, RN notes reviewed, old records reviewed Mode of arrival: EMS Limitations: no limitations - History of Present Illness Initial comments: This is a 56-year-old out of the ER for evaluation of not feeling well. Patient has no real specific complaints. Patient was found down for unknown time. Patient does live alone, house was in disarray patient is covered in stool and feces. Patient's run in by EMS who help preserve per the present the story. - Related Data Home Medications Medication Instructions Recorded Confirmed Carvedilol [Coreg] 6.25 mg PO BID 06/13/14 05/21/17 Gabapentin [Neurontin] 300 mg PO TID 01/28/16 05/21/17 Omeprazole 20 mg PO DAILY 06/12/16 05/21/17 Multivitamins, Thera [Multivitamin 1 tab PO DAILY 10/13/16 05/21/17 (formulary)] DULoxetine HCL [Cymbalta] 30 mg PO BID 04/06/17 05/21/17 INSULIN LISPRO (humaLOG) [humaLOG 8 units SQ AC-TID 04/06/17 05/21/17 (formulary)] Insulin Glargine [Lantus] 38 unit SQ DAILY 04/06/17 05/21/17 Losartan Potassium 25 mg PO DAILY 04/06/17 05/21/17 hydrALAZINE HCL [Apresoline] 50 mg PO TID 04/06/17 05/21/17 Atorvastatin [Lipitor] 40 mg PO HS 05/21/17 05/21/17 Collagenase [Santyl] 1 applic TOPICAL DAILY 05/21/17 05/21/17 Previous Rx's Medication Instructions Recorded Methadone [Dolophine] 10 mg PO Q8HR #21 tab 11/12/16 Aspirin 81 mg PO DAILY chew 02/10/17 Calcium Carbonate [Tums] 500 mg PO TID PRN #0 chew 02/10/17 Insulin Detemir [Levemir] 20 unit SQ HS vial 04/26/17 Allergies Allergy/AdvReac Type Severity Reaction Status Date / Time piperacillin [From Zosyn] Allergy Severe Dyspnea Verified 05/21/17 15:19 tazobactam [From Zosyn] Allergy Severe Dyspnea Verified 05/21/17 15:19 tramadol Allergy Unknown Verified 05/21/17 15:19 fentanyl AdvReac Lightheaded Verified 05/21/17 15:19 ketorolac tromethamine AdvReac Nausea Verified 05/21/17 15:19 [From Toradol] Review of Systems ROS Statement: Those systems with pertinent positive or pertinent negative responses have been documented in the HPI. ROS Other: All systems not noted in ROS Statement are negative. 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, left apical lung lesion, chronic back pain, chronic anemia, gastric ulcer disease , migraine, multiple infections including infections with MRSA, VRE, Pseudomonas multidrug resistant as evident in the wound cultures from the coccyx also wound rt leg-goes to [facility] every , edentulous, History of Any Multi-Drug Resistant Organisms: MRSA, Other MDRO, VRE Date of last positivie culture/infection: 03/18/17-MRSA; 04/05/17-VRE; 04/21/17- MDRO-PSEUDOMONAS MDRO Source:: wounds Past Surgical History: Adenoidectomy, Appendectomy, Heart Catheterization, Hernia Repair, Orthopedic Surgery, Tonsillectomy Additional Past Surgical History / Comment(s): R BKA, R BKA revision to AKA, L AKA , rt arm picc line -since removed Past Anesthesia/Blood Transfusion Reactions: No Reported Reaction Additional Past Anesthesia/Blood Transfusion Reaction / Comment(s): Pt recently received blood- no reaction Past Psychological History: Depression Smoking Status: Unknown if ever smoked Past Alcohol Use History: Unable to Obtain Past Drug Use History: None Reported - Past Family History Mother Family Medical History: Cancer Additional Family Medical History / Comment(s): Mother of brain cancer mets at the age of 68 yrs. Father Family Medical History: Cancer, Coronary Artery Disease (CAD) Additional Family Medical History / Comment(s): Father of throat cancer at the age of 70yrs. General Exam - General Exam Comments Initial Comments: Large stage III sacral decubitus Limitations: no limitations General appearance: alert, in distress, cachectic Head exam: Present: atraumatic, normocephalic, normal inspection Eye exam: Present: normal appearance, PERRL, EOMI. Absent: scleral icterus, conjunctival injection, periorbital swelling ENT exam: Present: normal exam, mucous membranes moist Neck exam: Present: normal inspection. Absent: tenderness, meningismus, lymphadenopathy Respiratory exam: Present: normal lung sounds bilaterally. Absent: respiratory distress, wheezes, rales, rhonchi, stridor Cardiovascular Exam: Present: regular rate, normal rhythm, normal heart sounds. Absent: systolic murmur, diastolic murmur, rubs, gallop, clicks GI/Abdominal exam: Present: soft, normal bowel sounds. Absent: distended, tenderness, guarding, rebound, rigid Extremities exam: Present: normal inspection, full ROM, normal capillary refill. Absent: tenderness, pedal edema, joint swelling, calf tenderness Back exam: Present: normal inspection Neurological exam: Present: alert, oriented X3, CN II-XII intact Psychiatric exam: Present: normal affect, normal mood Skin exam: Present: warm, dry, intact, normal color. Absent: rash Course Vital Signs 05/21/17 05/21/17 05/21/17 15:10 16:01 16:11 Temperature 99.2 F Pulse Rate 101 H 96 96 Respiratory 20 Rate Blood Pressure 134/80 O2 Sat by Pulse 91 L Oximetry - Reevaluation(s) Reevaluation #1: 05/21/17 16:22 Patient medical records thoroughly reviewed Medical Decision Making - Medical Decision Making 56-year-old ER for evaluation regarding fall, found on ground for unknown amount of time, unknown downtime. Debility and patient currently found to be in DKA, severe dehydration and altered mental status. Patient to be admitted for DKA, fluid hydration. - Lab Data Result diagrams: 05/21/17 15:35 05/21/17 15:35 Lab Results 05/21/17 05/21/17 05/21/17 Range/Units 15:33 15:35 15:35 WBC 12.3 H (3.8-10.6) k/uL RBC 3.27 L (4.30-5.90) m/uL Hgb 9.5 L (13.0-17.5) gm/dL Hct 31.1 L (39.0-53.0) % MCV 95.1 (80.0-100.0) fL MCH 29.1 (25.0-35.0) pg MCHC 30.5 L (31.0-37.0) g/dL RDW 15.3 (11.5-15.5) % Plt Count 504 H (150-450) k/uL Neutrophils % 91 % Lymphocytes % 6 % Monocytes % 2 % Eosinophils % 0 % Basophils % 0 % Neutrophils # 11.1 H (1.3-7.7) k/uL Lymphocytes # 0.7 L (1.0-4.8) k/uL Monocytes # 0.3 (0-1.0) k/uL Eosinophils # 0.0 (0-0.7) k/uL Basophils # 0.0 (0-0.2) k/uL Hypochromasia Moderate PT (9.0-12.0) sec INR (<1.2) APTT (22.0-30.0) sec Sodium (137-145) mmol/L Potassium (3.5-5.1) mmol/L Chloride (98-107) mmol/L Carbon Dioxide (22-30) mmol/L Anion Gap mmol/L BUN (9-20) mg/dL Creatinine (0.66-1.25) mg/dL Est GFR (MDRD) Af Amer (>60 ml/min/1.73 sqM) Est GFR (MDRD) Non-Af (>60 ml/min/1.73 sqM) Glucose (74-99) mg/dL POC Glucose (mg/dL) >600 H (75-99) mg/dL POC Glu Full Time Staff Interpreter ID Nat Briones Plasma Lactic Acid Ayo (0.7-2.0) mmol/L Calcium (8.4-10.2) mg/dL Phosphorus (2.5-4.5) mg/dL Magnesium (1.6-2.3) mg/dL Total Bilirubin (0.2-1.3) mg/dL AST (17-59) U/L ALT (21-72) U/L Alkaline Phosphatase (38-126) U/L Total Creatine Kinase 272 H (55-170) U/L CK-MB (CK-2) 3.2 H* (0.0-2.4) ng/mL CK-MB (CK-2) Rel Index 1.2 Troponin I <0.012 (0.000-0.034) ng/mL Total Protein (6.3-8.2) g/dL Albumin (3.5-5.0) g/dL 05/21/17 05/21/17 05/21/17 Range/Units 15:35 15:35 15:35 WBC (3.8-10.6) k/uL RBC (4.30-5.90) m/uL Hgb (13.0-17.5) gm/dL Hct (39.0-53.0) % MCV (80.0-100.0) fL MCH (25.0-35.0) pg MCHC (31.0-37.0) g/dL RDW (11.5-15.5) % Plt Count (150-450) k/uL Neutrophils % % Lymphocytes % % Monocytes % % Eosinophils % % Basophils % % Neutrophils # (1.3-7.7) k/uL Lymphocytes # (1.0-4.8) k/uL Monocytes # (0-1.0) k/uL Eosinophils # (0-0.7) k/uL Basophils # (0-0.2) k/uL Hypochromasia PT 10.6 (9.0-12.0) sec INR 1.0 (<1.2) APTT 21.3 L (22.0-30.0) sec Sodium 139 (137-145) mmol/L Potassium 5.3 H (3.5-5.1) mmol/L Chloride 104 (98-107) mmol/L Carbon Dioxide 16 L (22-30) mmol/L Anion Gap 19 mmol/L BUN 37 H (9-20) mg/dL Creatinine 0.90 (0.66-1.25) mg/dL Est GFR (MDRD) Af Amer >60 (>60 ml/min/1.73 sqM) Est GFR (MDRD) Non-Af >60 (>60 ml/min/1.73 sqM) Glucose 737 H* (74-99) mg/dL POC Glucose (mg/dL) (75-99) mg/dL POC Glu Full Time Staff Interpreter ID Plasma Lactic Acid Ayo 1.1 (0.7-2.0) mmol/L Calcium 9.4 (8.4-10.2) mg/dL Phosphorus 4.4 (2.5-4.5) mg/dL Magnesium 2.4 H (1.6-2.3) mg/dL Total Bilirubin 0.5 (0.2-1.3) mg/dL AST 21 (17-59) U/L ALT 59 (21-72) U/L Alkaline Phosphatase 121 (38-126) U/L Total Creatine Kinase (55-170) U/L CK-MB (CK-2) (0.0-2.4) ng/mL CK-MB (CK-2) Rel Index Troponin I (0.000-0.034) ng/mL Total Protein 6.4 (6.3-8.2) g/dL Albumin 3.5 (3.5-5.0) g/dL - Radiology Data Radiology results: report reviewed (Chest x-ray pelvis x-ray negative for acute disease), image reviewed Disposition Clinical Impression: Fall, Syncope, Delirium due to general medical condition, Unstageable pressure ulcer, DKA (diabetic ketoacidoses) Disposition: ADMITTED IP TO THIS [facility] Condition: Serious Referrals: Brent Chong MD [Primary Care Provider] - 1-2 days
[2017-05-21] MEDS ORDERED: IPRATROPIUM-ALBUTEROL 3 ML NEB INHALATION PRN (15:31)
[2017-05-21 15:35] LABS: Glucose,Whole Blood >600 mg/dL (75-99)
[2017-05-21 15:43] LABS: Basophils % (A) 0 %; CH 28.9; CHCM 30.5; Eosinophils % (A) 0 %; HCT 31.1 % (39.0-53.0); HDW 2.44; HGB 9.5 gm/dL (13.0-17.5); Hypochromasia Moderate; Luc % (Auto) 1; Lymphocytes # (A) 0.7 k/uL (1.0-4.8); Lymphocytes % (A) 6 %; MCH 29.1 pg (25.0-35.0); MCHC 30.5 g/dL (31.0-37.0); MCV 95.1 fL (80.0-100.0); Mean Platelet Volume 8.3; Monocytes # (A) 0.3 k/uL (0-1.0); Monocytes % (A) 2 %; Neutrophils # (A) 11.1 k/uL (1.3-7.7); Neutrophils % (A) 91 %; RBC 3.27 m/uL (4.30-5.90); RDW 15.3 % (11.5-15.5); WBC 12.3 k/uL (3.8-10.6); WBC (Perox) 12.51
[2017-05-21 15:53] LABS: ALT 59 U/L (21-72); AST 21 U/L (17-59); Alkaline Phosphatase 121 U/L (38-126); Anion Gap 19 mmol/L; Blood Urea Nitrogen 37 mg/dL (9-20); Calcium 9.4 mg/dL (8.4-10.2); Carbon Dioxide 16 mmol/L (22-30); Chloride 104 mmol/L (98-107); Magnesium 2.4 mg/dL (1.6-2.3); Non-African American GFR(MDRD) >60 (>60 ml/min/1.73 sqM); Phosphorous 4.4 mg/dL (2.5-4.5); Potassium 5.3 mmol/L (3.5-5.1); Sodium 139 mmol/L (137-145); Total Bilirubin 0.5 mg/dL (0.2-1.3); Total Protein 6.4 g/dL (6.3-8.2)
[2017-05-21 16:00] LABS: Prothrombin Time 10.6 sec (9.0-12.0)
[2017-05-21 16:02] LABS: Glucose 737 mg/dL (74-99)
[2017-05-21 16:05] LABS: Creatine Kinase 272 U/L (55-170)
[2017-05-21 16:07] LABS: Partial Thromboplastin Time 21.3 sec (22.0-30.0)
[2017-05-21] MEDS ORDERED: INSULIN REGULAR BOLUS (FROM DRIP BAG) IV ONE (16:11)
[2017-05-21] MEDS ORDERED: SODIUM CHLORIDE 0.9% 1,000 ML IV ONE (16:11)
--- NOTE | 2017-05-21 16:14 | XR ---
EXAMINATION TYPE: XR pelvis AP view DATE OF EXAM: 05/21/2017 CLINICAL HISTORY: pain TECHNIQUE: Single view the pelvis is submitted. FINDINGS: No evidence for fracture, dislocation or bony lesion. Joint spaces are well-preserved. S I joints appear symmetric. IMPRESSION: 1. No acute fracture or dislocation seen. ICD 10 NO FRACTURE, INITIAL EVALUATION
--- NOTE | 2017-05-21 16:14 | XR ---
EXAMINATION TYPE: XR chest 1V portable DATE OF EXAM: 05/21/2017 COMPARISON: 04/21/2017 HISTORY: Shortness of breath TECHNIQUE: Frontal and lateral views of the chest are obtained. FINDINGS: Scattered senescent parenchymal changes noted. Hyperinflation compatible with COPD. No evidence for infiltrate. No evidence for atelectasis. Stable granuloma left midlung. Heart size is stable. Mediastinal structures are stable and grossly unremarkable. No evidence for hilar prominence. Degenerative changes dorsal spine. IMPRESSION: 1. No evidence for acute pulmonary disease.
[2017-05-21 16:18] LABS: Troponin I <0.012 ng/mL (0.000-0.034)
[2017-05-21] MEDS ORDERED: LORazepam 2 MG/ML SYRINGE IV STA (16:19)
[2017-05-21 16:23] LABS: Creatine Kinase MB 3.2 ng/mL (0.0-2.4)
[2017-05-21] MEDS ORDERED: IV VANCOMYCIN PER PHARMACY 1 EACH MISC MISCELLANE PRN (16:24)
[2017-05-21 16:34] LABS: Appearance,Urine Cloudy (Clear); Bilirubin,Urine Negative (Negative); Glucose,Urine (UA) 4+ (Negative); Leukocyte Esterase,Urine Large (Negative); Nitrite,Urine Negative (Negative); PH, Urine 5.5 (5.0-8.0); Particle Count 1361; Protein,Urine 1+ (Negative); RBC,Urine 58 /hpf (0-5); Specific Gravity,Urine 1.014 (1.001-1.035); UA Billing (MACRO vs. MICRO) MICRO; Urobilinogen,Urine <2.0 mg/dL (<2.0); WBC,Urine >182 /hpf (0-5)
[2017-05-21 16:37] LABS: Ketones,Urine 2+ (Negative)
[2017-05-21] MEDS: INSULIN REGULAR 100 UNIT in SODIUM CHLORIDE 0.9% 100 ML IV SCH ×3 (16:51→19:35)
[2017-05-21 16:52] LABS: Glucose,Whole Blood >600 mg/dL (75-99)
[2017-05-21] MEDS: SODIUM CHLORIDE 0.9% 1,000 ML IV SCH ×4 (17:02→21:04)
[2017-05-21] MEDS ORDERED: VANCOMYCIN 1,000 MG in SODIUM CHLORIDE 0.9% 250 ML IVPB ONE (17:30)
[2017-05-21 17:31] LABS: Glucose,Whole Blood >600 mg/dL (75-99)
[2017-05-21 18:03] LABS: Glucose,Whole Blood 569 mg/dL (75-99)
[2017-05-21] MEDS: D5-0.45% NACL WITH KCL 20MEQ/L 1,000 ML IV SCH ×2 (18:57→22:32)
[2017-05-21 19:08] LABS: Glucose,Whole Blood 449 mg/dL (75-99)
[2017-05-21 20:06] LABS: Glucose,Whole Blood 423 mg/dL (75-99)
[2017-05-21 21:05] LABS: Glucose,Whole Blood 301 mg/dL (75-99)
[2017-05-21 21:39] LABS: Anion Gap 10 mmol/L; Blood Urea Nitrogen 32 mg/dL (9-20); Carbon Dioxide 20 mmol/L (22-30); Chloride 114 mmol/L (98-107); Glucose 376 mg/dL (74-99); Non-African American GFR(MDRD) >60 (>60 ml/min/1.73 sqM); Potassium 3.7 mmol/L (3.5-5.1); Sodium 144 mmol/L (137-145)
[2017-05-21] MEDS: ATORVASTATIN 40 MG TAB PO SCH (21:45)
[2017-05-21] MEDS: DULoxetine HCL 30 MG CAPSULE.DR PO SCH (21:45)
[2017-05-21] MEDS: hydrALAZINE HCL 50 MG TAB PO SCH (21:45)
[2017-05-21] MEDS: GABAPENTIN 300 MG CAP PO SCH (21:45)
[2017-05-21 22:01] LABS: Glucose,Whole Blood 227 mg/dL (75-99)
[2017-05-21 23:00] LABS: Glucose,Whole Blood 157 mg/dL (75-99)
[2017-05-22 00:03] LABS: Glucose,Whole Blood 115 mg/dL (75-99)
[2017-05-22] MEDS: METHADONE 10 MG TAB PO SCH ×4 (00:04→23:48)
[2017-05-22 00:47] LABS: Anion Gap 9 mmol/L; Blood Urea Nitrogen 28 mg/dL (9-20); Carbon Dioxide 22 mmol/L (22-30); Chloride 118 mmol/L (98-107); Glucose 93 mg/dL (74-99); Non-African American GFR(MDRD) >60 (>60 ml/min/1.73 sqM); Phosphorous 2.6 mg/dL (2.5-4.5); Potassium 3.8 mmol/L (3.5-5.1); Sodium 149 mmol/L (137-145)
[2017-05-22 01:11] LABS: Glucose,Whole Blood 95 mg/dL (75-99)
[2017-05-22 01:32] LABS: Glucose,Whole Blood 73 mg/dL (75-99)
[2017-05-22 02:14] LABS: Glucose,Whole Blood 127 mg/dL (75-99)
[2017-05-22 03:02] LABS: Glucose,Whole Blood 98 mg/dL (75-99)
[2017-05-22 04:05] LABS: Glucose,Whole Blood 151 mg/dL (75-99)
[2017-05-22] MEDS: SODIUM CHLORIDE 0.9% 1,000 ML IV SCH ×3 (04:42→23:43)
[2017-05-22 05:03] LABS: Glucose,Whole Blood 180 mg/dL (75-99)
[2017-05-22 05:59] LABS: Glucose,Whole Blood 244 mg/dL (75-99)
[2017-05-22] MEDS: D5-0.45% NACL WITH KCL 20MEQ/L 1,000 ML IV SCH (06:12)
[2017-05-22] MEDS: VANCOMYCIN 750 MG in SODIUM CHLORIDE 0.9% 250 ML IVPB SCH ×2 (06:12→17:59)
[2017-05-22] MEDS: PANTOPRAZOLE 40 MG TABLET PO SCH (06:13)
[2017-05-22 07:01] LABS: Glucose,Whole Blood 267 mg/dL (75-99)
[2017-05-22] MEDS: INSULIN LISPRO (humaLOG) 300 UNIT/3 ML VIAL SQ SCH ×6 (07:06→20:51)
[2017-05-22] MEDS: ENOXAPARIN 40 MG/0.4 ML SYRINGE SQ SCH (08:54)
[2017-05-22] MEDS: INSULIN GLARGINE 100 UNIT/ML 10 ML VIAL SQ SCH (08:54)
[2017-05-22] MEDS ORDERED: COLLAGENASE 250 UNIT/GM OINTMENT 30 GM TUBE TOPICAL SCH (09:00)
[2017-05-22] MEDS: ASPIRIN 81 MG CHEW PO SCH (10:00)
[2017-05-22] MEDS: DULoxetine HCL 30 MG CAPSULE.DR PO SCH ×2 (10:00→20:41)
[2017-05-22] MEDS: LOSARTAN 25 MG TAB PO SCH (10:01)
[2017-05-22] MEDS: GABAPENTIN 300 MG CAP PO SCH ×3 (10:01→20:42)
[2017-05-22] MEDS: hydrALAZINE HCL 50 MG TAB PO SCH ×3 (10:01→20:42)
--- NOTE | 2017-05-22 10:08 | P.HPIM ---
History of Present Illness H&P Date: 05/22/17 Chief Complaint: Altered mental status, DKA, sepsis Subjective 56-year-old male well-known to our practice who presented to the emergency room with general malaise. No specific complaints. Patient was found down for quite some time but time unknown. Patient lives alone how sister is in disarray patient was covered with stool and feces. Currently at this time patient is not responding appropriate Review of Systems Constitutional: Reports as per HPI Cardiovascular: Reports as per HPI Respiratory: Reports as per HPI Gastrointestinal: Reports as per HPI Genitourinary: Reports as per HPI Musculoskeletal: Reports as per HPI Integumentary: Reports as per HPI, Reports sores, Reports wounds Neurological: Reports change in mentation Psychiatric: Reports hypersomnia 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, left apical lung lesion, chronic back pain, chronic anemia, gastric ulcer disease , migraine, multiple infections including infections with MRSA, VRE, Pseudomonas multidrug resistant as evident in the wound cultures from the coccyx also wound [facility], ed[facility], History of Any Multi-Drug Resistant Organisms: MRSA, Other MDRO, VRE Date of last positivie culture/infection: 03/18/17-MRSA; 04/05/17-VRE; 04/21/17- MDRO-PSEUDOMONAS MDRO Source:: wounds Past Surgical History: Adenoidectomy, Appendectomy, Heart Catheterization, Hernia Repair, Orthopedic Surgery, Tonsillectomy Additional Past Surgical History / Comment(s): R BKA, R BKA revision to AKA, L AKA , rt arm picc line -since removed Past Anesthesia/Blood Transfusion Reactions: No Reported Reaction Additional Past Anesthesia/Blood Transfusion Reaction / Comment(s): Pt recently received blood- no reaction Past Psychological History: Depression Additional Psychological History / Comment(s): Pt resides alone at [facility]. medical equipment:wheelchair ( transfers himself) and a glucometer .He does not drive. He uses the bus. no pets,( last admit in april 2017 pt stated was recieving [facility] 2x/week) Smoking Status: Unknown if ever smoked Past Alcohol Use History: Unable to Obtain Additional Past Alcohol Use History / Comment(s): started smoking at age 12(1971 ) smoking 1 ppd. 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 Father Family Medical History: Cancer, Coronary Artery Disease (CAD) Additional Family Medical History / Comment(s): Father of throat cancer at the age of 70yrs. Medications and Allergies Home Medications Medication Instructions Recorded Confirmed Type Carvedilol [Coreg] 6.25 mg PO BID 06/13/14 05/21/17 History Gabapentin [Neurontin] 300 mg PO TID 01/28/16 05/21/17 History Omeprazole 20 mg PO DAILY 06/12/16 05/21/17 History Multivitamins, Thera [Multivitamin 1 tab PO DAILY 10/13/16 05/21/17 History (formulary)] DULoxetine HCL [Cymbalta] 30 mg PO BID 04/06/17 05/21/17 History INSULIN LISPRO (humaLOG) [humaLOG 8 units SQ AC-TID 04/06/17 05/21/17 History (formulary)] Insulin Glargine [Lantus] 38 unit SQ DAILY 04/06/17 05/21/17 History Losartan Potassium 25 mg PO DAILY 04/06/17 05/21/17 History hydrALAZINE HCL [Apresoline] 50 mg PO TID 04/06/17 05/21/17 History Atorvastatin [Lipitor] 40 mg PO HS 05/21/17 05/21/17 History Collagenase [Santyl] 1 applic TOPICAL DAILY 05/21/17 05/21/17 History Allergies Allergy/AdvReac Type Severity Reaction Status Date / Time piperacillin [From Zosyn] Allergy Severe Dyspnea Verified 05/21/17 15:19 tazobactam [From Zosyn] Allergy Severe Dyspnea Verified 05/21/17 15:19 tramadol Allergy Unknown Verified 05/21/17 15:19 fentanyl AdvReac Lightheaded Verified 05/21/17 15:19 ketorolac tromethamine AdvReac Nausea Verified 05/21/17 15:19 [From Toradol] Physical Exam Osteopathic Statement: *. No significant issues noted on an osteopathic structural exam other than those noted in the History and Physical/Consult. Vitals: Vital Signs Temp Pulse Pulse Resp BP BP Pulse Ox 05/22/17 08:00 96.9 F L 79 18 151/71 100 05/22/17 04:00 98.0 F 87 14 129/72 98 05/22/17 00:00 98 F 82 16 121/70 96 05/21/17 19:00 97.0 F L 94 16 129/76 95 05/21/17 18:20 96.9 F L 91 18 127/68 94 L 05/21/17 18:12 102 H 18 128/73 93 L 05/21/17 17:05 99 20 148/77 93 L 05/21/17 16:11 96 05/21/17 16:01 96 05/21/17 15:10 99.2 F 101 H 20 134/80 91 L Intake and Output 05/21/17 05/22/17 05/22/17 22:59 06:59 14:59 Intake Total 4736.761 3646.663 Output Total 1000 Balance 1687.316 316.663 Intake: Intake, IV Titration 3216.339 3543.663 Amount D5-0.45% NaCl with KCl 0 300 20Meq/l 1,000 ml @ 150 mls/hr IV .Q6H40M ROSA Rx# :[id number] Insulin Regular 100 unit 37.316 16.663 In Sodium Chloride 0.9% 100 ml @ 0.1 UNITS/KG/HR 4.19 mls/hr IV .Q24H ROSA Rx#:[id number] Sodium Chloride 0.9% 1, 400 1000 000 ml @ 200 mls/hr IV . Q5H ROSA Rx#:[id number] Sodium Chloride 0.9% 1, 1000 000 ml @ 999 mls/hr IV . Q1H1M STA Rx#:[id number] Vancomycin 750 mg In 250 Sodium Chloride 0.9% 250 ml @ 125 mls/hr IVPB Q12H ROSA Rx#:[id number] Oral 0 0 Output: Urine 1000 Other: Voiding Method Indwelling Catheter Indwelling Catheter Indwelling Catheter Weight 41.5 kg 42.5 kg Results CBC & Chem 7: 05/21/17 15:35 05/22/17 00:17 Labs: Abnormal Lab Results - Last 24 Hours (Table) 05/21/17 05/21/17 05/21/17 Range/Units 15:33 15:35 15:35 WBC 12.3 H (3.8-10.6) k/uL RBC 3.27 L (4.30-5.90) m/uL Hgb 9.5 L (13.0-17.5) gm/dL Hct 31.1 L (39.0-53.0) % MCHC 30.5 L (31.0-37.0) g/dL Plt Count 504 H (150-450) k/uL Neutrophils # 11.1 H (1.3-7.7) k/uL Lymphocytes # 0.7 L (1.0-4.8) k/uL APTT (22.0-30.0) sec Sodium (137-145) mmol/L Potassium (3.5-5.1) mmol/L Chloride (98-107) mmol/L Carbon Dioxide (22-30) mmol/L BUN (9-20) mg/dL Glucose (74-99) mg/dL POC Glucose (mg/dL) >600 H (75-99) mg/dL Phosphorus (2.5-4.5) mg/dL Magnesium (1.6-2.3) mg/dL Total Creatine Kinase 272 H (55-170) U/L CK-MB (CK-2) 3.2 H* (0.0-2.4) ng/mL Urine Protein (Negative) Urine Glucose (UA) (Negative) Urine Ketones (Negative) Urine Blood (Negative) Ur Leukocyte Esterase (Negative) Urine RBC (0-5) /hpf Urine WBC (0-5) /hpf Urine WBC Clumps (None) /hpf Urine Yeast (Budding) (None) /hpf 05/21/17 05/21/17 05/21/17 Range/Units 15:35 15:35 16:20 WBC (3.8-10.6) k/uL RBC (4.30-5.90) m/uL Hgb (13.0-17.5) gm/dL Hct (39.0-53.0) % MCHC (31.0-37.0) g/dL Plt Count (150-450) k/uL Neutrophils # (1.3-7.7) k/uL Lymphocytes # (1.0-4.8) k/uL APTT 21.3 L (22.0-30.0) sec Sodium (137-145) mmol/L Potassium 5.3 H (3.5-5.1) mmol/L Chloride (98-107) mmol/L Carbon Dioxide 16 L (22-30) mmol/L BUN 37 H (9-20) mg/dL Glucose 737 H* (74-99) mg/dL POC Glucose (mg/dL) (75-99) mg/dL Phosphorus (2.5-4.5) mg/dL Magnesium 2.4 H (1.6-2.3) mg/dL Total Creatine Kinase (55-170) U/L CK-MB (CK-2) (0.0-2.4) ng/mL Urine Protein 1+ H (Negative) Urine Glucose (UA) 4+ H (Negative) Urine Ketones 2+ H (Negative) Urine Blood Small H (Negative) Ur Leukocyte Esterase Large H (Negative) Urine RBC 58 H (0-5) /hpf Urine WBC >182 H (0-5) /hpf Urine WBC Clumps Few H (None) /hpf Urine Yeast (Budding) Many H (None) /hpf 05/21/17 05/21/17 05/21/17 Range/Units 16:50 17:29 18:01 WBC (3.8-10.6) k/uL RBC (4.30-5.90) m/uL Hgb (13.0-17.5) gm/dL Hct (39.0-53.0) % MCHC (31.0-37.0) g/dL Plt Count (150-450) k/uL Neutrophils # (1.3-7.7) k/uL Lymphocytes # (1.0-4.8) k/uL APTT (22.0-30.0) sec Sodium (137-145) mmol/L Potassium (3.5-5.1) mmol/L Chloride (98-107) mmol/L Carbon Dioxide (22-30) mmol/L BUN (9-20) mg/dL Glucose (74-99) mg/dL POC Glucose (mg/dL) >600 H >600 H 569 H (75-99) mg/dL Phosphorus (2.5-4.5) mg/dL Magnesium (1.6-2.3) mg/dL Total Creatine Kinase (55-170) U/L CK-MB (CK-2) (0.0-2.4) ng/mL Urine Protein (Negative) Urine Glucose (UA) (Negative) Urine Ketones (Negative) Urine Blood (Negative) Ur Leukocyte Esterase (Negative) Urine RBC (0-5) /hpf Urine WBC (0-5) /hpf Urine WBC Clumps (None) /hpf Urine Yeast (Budding) (None) /hpf 05/21/17 05/21/17 05/21/17 Range/Units 19:07 19:50 19:55 WBC (3.8-10.6) k/uL RBC (4.30-5.90) m/uL Hgb (13.0-17.5) gm/dL Hct (39.0-53.0) % MCHC (31.0-37.0) g/dL Plt Count (150-450) k/uL Neutrophils # (1.3-7.7) k/uL Lymphocytes # (1.0-4.8) k/uL APTT (22.0-30.0) sec Sodium (137-145) mmol/L Potassium (3.5-5.1) mmol/L Chloride 114 H (98-107) mmol/L Carbon Dioxide 20 L (22-30) mmol/L BUN 32 H (9-20) mg/dL Glucose 376 H (74-99) mg/dL POC Glucose (mg/dL) 449 H (75-99) mg/dL Phosphorus 2.4 L (2.5-4.5) mg/dL Magnesium (1.6-2.3) mg/dL Total Creatine Kinase (55-170) U/L CK-MB (CK-2) (0.0-2.4) ng/mL Urine Protein (Negative) Urine Glucose (UA) (Negative) Urine Ketones (Negative) Urine Blood (Negative) Ur Leukocyte Esterase (Negative) Urine RBC (0-5) /hpf Urine WBC (0-5) /hpf Urine WBC Clumps (None) /hpf Urine Yeast (Budding) (None) /hpf 05/21/17 05/21/17 05/21/17 Range/Units 20:04 21:02 21:59 WBC (3.8-10.6) k/uL RBC (4.30-5.90) m/uL Hgb (13.0-17.5) gm/dL Hct (39.0-53.0) % MCHC (31.0-37.0) g/dL Plt Count (150-450) k/uL Neutrophils # (1.3-7.7) k/uL Lymphocytes # (1.0-4.8) k/uL APTT (22.0-30.0) sec Sodium (137-145) mmol/L Potassium (3.5-5.1) mmol/L Chloride (98-107) mmol/L Carbon Dioxide (22-30) mmol/L BUN (9-20) mg/dL Glucose (74-99) mg/dL POC Glucose (mg/dL) 423 H 301 H 227 H (75-99) mg/dL Phosphorus (2.5-4.5) mg/dL Magnesium (1.6-2.3) mg/dL Total Creatine Kinase (55-170) U/L CK-MB (CK-2) (0.0-2.4) ng/mL Urine Protein (Negative) Urine Glucose (UA) (Negative) Urine Ketones (Negative) Urine Blood (Negative) Ur Leukocyte Esterase (Negative) Urine RBC (0-5) /hpf Urine WBC (0-5) /hpf Urine WBC Clumps (None) /hpf Urine Yeast (Budding) (None) /hpf 05/21/17 05/22/17 05/22/17 Range/Units 22:59 00:02 00:17 WBC (3.8-10.6) k/uL RBC (4.30-5.90) m/uL Hgb (13.0-17.5) gm/dL Hct (39.0-53.0) % MCHC (31.0-37.0) g/dL Plt Count (150-450) k/uL Neutrophils # (1.3-7.7) k/uL Lymphocytes # (1.0-4.8) k/uL APTT (22.0-30.0) sec Sodium 149 H (137-145) mmol/L Potassium (3.5-5.1) mmol/L Chloride 118 H (98-107) mmol/L Carbon Dioxide (22-30) mmol/L BUN 28 H (9-20) mg/dL Glucose (74-99) mg/dL POC Glucose (mg/dL) 157 H 115 H (75-99) mg/dL Phosphorus (2.5-4.5) mg/dL Magnesium (1.6-2.3) mg/dL Total Creatine Kinase (55-170) U/L CK-MB (CK-2) (0.0-2.4) ng/mL Urine Protein (Negative) Urine Glucose (UA) (Negative) Urine Ketones (Negative) Urine Blood (Negative) Ur Leukocyte Esterase (Negative) Urine RBC (0-5) /hpf Urine WBC (0-5) /hpf Urine WBC Clumps (None) /hpf Urine Yeast (Budding) (None) /hpf 05/22/17 05/22/17 05/22/17 Range/Units 01:30 02:02 04:03 WBC (3.8-10.6) k/uL RBC (4.30-5.90) m/uL Hgb (13.0-17.5) gm/dL Hct (39.0-53.0) % MCHC (31.0-37.0) g/dL Plt Count (150-450) k/uL Neutrophils # (1.3-7.7) k/uL Lymphocytes # (1.0-4.8) k/uL APTT (22.0-30.0) sec Sodium (137-145) mmol/L Potassium (3.5-5.1) mmol/L Chloride (98-107) mmol/L Carbon Dioxide (22-30) mmol/L BUN (9-20) mg/dL Glucose (74-99) mg/dL POC Glucose (mg/dL) 73 L 127 H 151 H (75-99) mg/dL Phosphorus (2.5-4.5) mg/dL Magnesium (1.6-2.3) mg/dL Total Creatine Kinase (55-170) U/L CK-MB (CK-2) (0.0-2.4) ng/mL Urine Protein (Negative) Urine Glucose (UA) (Negative) Urine Ketones (Negative) Urine Blood (Negative) Ur Leukocyte Esterase (Negative) Urine RBC (0-5) /hpf Urine WBC (0-5) /hpf Urine WBC Clumps (None) /hpf Urine Yeast (Budding) (None) /hpf 05/22/17 05/22/17 05/22/17 Range/Units 05:01 05:58 06:58 WBC (3.8-10.6) k/uL RBC (4.30-5.90) m/uL Hgb (13.0-17.5) gm/dL Hct (39.0-53.0) % MCHC (31.0-37.0) g/dL Plt Count (150-450) k/uL Neutrophils # (1.3-7.7) k/uL Lymphocytes # (1.0-4.8) k/uL APTT (22.0-30.0) sec Sodium (137-145) mmol/L Potassium (3.5-5.1) mmol/L Chloride (98-107) mmol/L Carbon Dioxide (22-30) mmol/L BUN (9-20) mg/dL Glucose (74-99) mg/dL POC Glucose (mg/dL) 180 H 244 H 267 H (75-99) mg/dL Phosphorus (2.5-4.5) mg/dL Magnesium (1.6-2.3) mg/dL Total Creatine Kinase (55-170) U/L CK-MB (CK-2) (0.0-2.4) ng/mL Urine Protein (Negative) Urine Glucose (UA) (Negative) Urine Ketones (Negative) Urine Blood (Negative) Ur Leukocyte Esterase (Negative) Urine RBC (0-5) /hpf Urine WBC (0-5) /hpf Urine WBC Clumps (None) /hpf Urine Yeast (Budding) (None) /hpf Microbiology - Last 24 Hours (Table) 05/21/17 16:20 Urine Culture - Preliminary Urine,Voided Thrombosis Risk Factor Assmnt - Choose All That Apply Any of the Below Risk Factors Present?: Yes Each Factor Represents 1 point: Abnormal pulmonary function (COPD) Each Risk Factor Represents 2 Points: Age 61-74 years Other congenital or acquired thrombophilia - If yes, enter type in comment: No Thrombosis Risk Factor Assessment Total Risk Factor Score: 3 Thrombosis Risk Factor Assessment Level: Moderate Risk Assessment and Plan (1) DKA (diabetic ketoacidoses) Narrative/Plan: Mr. Berry is currently acetone negative has been switched to sliding scale and we will feed him once he regains consciousness Mr. Guardado has a history of overdosing on his methadone and not eating which brings him to this state Status: Acute (2) Delirium due to general medical condition Narrative/Plan: Medically debilitated, noncompliant, heavy narcotics abuser, patient responds to name we'll continue to hydrate and cover with sliding scale anticipate feeding soon Status: Acute (3) Unstageable pressure ulcer Narrative/Plan: Patient is noncompliant with recommendations from wound center, missed last wound center visit, typically sees Dr. Chong Status: Acute (4) Altered mental status Narrative/Plan: DKA has resolved, patient typically overdoses on methadone at home, then doesn' t eat, then ends up in diabetic ketoacidosis and sepsis will continue antibiotic therapy and fluid resuscitation and hold narcotics until patient awakens more clearly Status: Acute (5) Anemia Narrative/Plan: Anemia of chronic disease, also secondary to self-imposed malnutrition encourage oral intake aggressively Status: Acute
[2017-05-22] MEDS: MULTIVITAMINS, THERA 1 EACH TAB PO SCH (11:56)
[2017-05-22 12:10] LABS: Glucose,Whole Blood 306 mg/dL (75-99)
[2017-05-22 16:51] LABS: Glucose,Whole Blood 494 mg/dL (75-99)
[2017-05-22] MEDS ORDERED: INSULIN LISPRO (humaLOG) 300 UNIT/3 ML VIAL SQ ONE (17:00)
[2017-05-22] MEDS: ATORVASTATIN 40 MG TAB PO SCH (20:41)
[2017-05-22] MEDS: INSULIN DETEMIR 100 UNIT/ML 10 ML VIAL SQ SCH ×2 (20:42→20:49)
[2017-05-22 20:54] LABS: Glucose,Whole Blood 75 mg/dL (75-99)
[2017-05-22] MEDS: COLLAGENASE 250 UNIT/GM OINTMENT 30 GM TUBE TOPICAL SCH (21:50)
[2017-05-23] MEDS: VANCOMYCIN 750 MG in SODIUM CHLORIDE 0.9% 250 ML IVPB SCH ×2 (05:36→20:16)
[2017-05-23 05:53] LABS: Glucose,Whole Blood 148 mg/dL (75-99)
[2017-05-23] MEDS: PANTOPRAZOLE 40 MG TABLET PO SCH (06:59)
[2017-05-23] MEDS: INSULIN LISPRO (humaLOG) 300 UNIT/3 ML VIAL SQ SCH ×7 (07:00→22:10)
[2017-05-23] MEDS: SODIUM CHLORIDE 0.9% 1,000 ML IV SCH ×2 (07:03→17:56)
[2017-05-23] MEDS: DULoxetine HCL 30 MG CAPSULE.DR PO SCH ×2 (08:55→22:10)
[2017-05-23] MEDS: ENOXAPARIN 40 MG/0.4 ML SYRINGE SQ SCH (08:55)
[2017-05-23] MEDS: ASPIRIN 81 MG CHEW PO SCH (08:55)
[2017-05-23] MEDS: GABAPENTIN 300 MG CAP PO SCH ×3 (08:55→22:10)
[2017-05-23] MEDS: INSULIN GLARGINE 100 UNIT/ML 10 ML VIAL SQ SCH (08:55)
[2017-05-23] MEDS: hydrALAZINE HCL 50 MG TAB PO SCH ×3 (08:55→22:11)
[2017-05-23] MEDS: LOSARTAN 25 MG TAB PO SCH (08:55)
[2017-05-23] MEDS: MULTIVITAMINS, THERA 1 EACH TAB PO SCH (08:55)
--- NOTE | 2017-05-23 11:31 | P.PN ---
Subjective Principal diagnosis: Patient is awake alert vital signs are stable today sugar is better controlled patient has a history of noncompliance with diabetic meds and diet, he is also somewhat noncompliant and abusive with his pain meds although and most recent months seems to be improved. Most recently was admitted via the emergency room unconscious sugar was very high and appears that patient take his once again not taking meds appropriately will stabilize sugars pain meds antihypertensives and discharge patient home next 24-48 hours Objective - Vital Signs Vital signs: Vital Signs Temp 97.0 F L 05/23/17 08:00 Pulse 82 05/23/17 08:00 Resp 18 05/23/17 08:00 BP 135/90 05/23/17 08:00 Pulse Ox 100 05/23/17 08:00 Intake & Output 05/22/17 05/23/17 05/23/17 18:59 06:59 18:59 Intake Total 340 950 Output Total 600 1000 Balance -260 -50 Weight 42.5 kg 33 kg Intake: Intake, IV Titration 250 950 Amount Sodium Chloride 0.9% 1, 950 000 ml @ 100 mls/hr IV . Q10H ROSA Rx#:[id number] Vancomycin 750 mg In 250 Sodium Chloride 0.9% 250 ml @ 125 mls/hr IVPB Q12H ROSA Rx#:[id number] Oral 90 Output: Urine 600 1000 Stool 0 Other: Voiding Method Indwelling Catheter Indwelling Catheter Indwelling Catheter # Voids 100 - Exam General: [Patient awake, alert and oriented times 3. Patient in no acute distress.] HEENT: [PERRL. EOMI. No pharyngeal erythema or exudate.] Neck: [No adenopathy.] Cardiac: [Heart regular in rate and rhythm. No S3. No S4. No clicks, rubs. No murmur.] Lungs: [Clear to auscultation bilaterally.] Abdomen: [No mass. No organomegaly. Bowel sounds presnt and normoactive in all 4 quadrants.] Extremes: Patient has BKA bilaterally, also has large sacral decub approximately 8 cm x 8 cm x 8 am able to visualize bone there is a large amount of drainage patient will resume appropriate wound care Musculoskeletal: [No joint erythema, edema or tenderness.] Skin: [No rash.] Neurologic: [No lateralizing deficits. CN II - XII grossly intact.] Lymphatic: [No adenopathy.] - Labs CBC & Chem 7: 05/21/17 15:35 05/22/17 00:17 Labs: Abnormal Lab Results - Last 24 Hours (Table) 05/22/17 05/22/17 05/22/17 Range/Units 00:17 12:05 16:45 POC Glucose (mg/dL) 306 H 494 H (75-99) mg/dL Hemoglobin A1c 11.0 H (4.2-6.1) % 05/23/17 Range/Units 05:52 POC Glucose (mg/dL) 148 H (75-99) mg/dL Hemoglobin A1c (4.2-6.1) % Microbiology - Last 24 Hours (Table) 05/21/17 16:20 Urine Culture - Final Urine,Voided 05/21/17 15:35 Blood Culture - Preliminary Blood No Growth after 24 hours Assessment and Plan (1) DKA (diabetic ketoacidoses) Narrative/Plan: Tolerating appropriate diet patient is awake alert DKA has resolved Status: Acute (2) Delirium due to general medical condition Narrative/Plan: Medically debilitated, noncompliant, heavy narcotics abuser, patient is currently awake alert his vital signs are stable tolerating diet anticipate discharge home the next 24-48 hours Status: Acute (3) Unstageable pressure ulcer Narrative/Plan: Patient is noncompliant with recommendations from wound center, missed last wound center visit, typically sees Dr. Chong Status: Acute (4) Altered mental status Narrative/Plan: DKA has resolved, patient typically overdoses on methadone at home, then doesn' t eat, then ends up in diabetic ketoacidosis and sepsis will continue antibiotic therapy and fluid resuscitation and hold narcotics until patient awakens more clearly Status: Acute (5) Anemia Narrative/Plan: Anemia of chronic disease, also secondary to self-imposed malnutrition encourage oral intake aggressively Status: Acute Plan: May take off telemetry and transferred to general medical floor anticipate discharge tomorrow
[2017-05-23 11:56] LABS: Glucose,Whole Blood 141 mg/dL (75-99)
[2017-05-23] MEDS: METHADONE 10 MG TAB PO SCH (12:14)
[2017-05-23 13:02] LABS: Glucose,Whole Blood 153 mg/dL (75-99)
[2017-05-23] MEDS: METHADONE 10 MG TAB PO PRN ×2 (13:55→22:08)
[2017-05-23] MEDS ORDERED: VANCOMYCIN TROUGH DUE 1 EACH MISC MISCELLANE ONE (17:00)
[2017-05-23 17:44] LABS: Glucose,Whole Blood 79 mg/dL (75-99)
[2017-05-23 17:47] LABS: Anion Gap 8 mmol/L; Blood Urea Nitrogen 15 mg/dL (9-20); Carbon Dioxide 21 mmol/L (22-30); Chloride 111 mmol/L (98-107); Glucose 56 mg/dL (74-99); Non-African American GFR(MDRD) >60 (>60 ml/min/1.73 sqM); Potassium 4.1 mmol/L (3.5-5.1); Sodium 140 mmol/L (137-145)
[2017-05-23 20:18] LABS: Glucose,Whole Blood 177 mg/dL (75-99)
[2017-05-23] MEDS: INSULIN DETEMIR 100 UNIT/ML 10 ML VIAL SQ SCH (22:08)
[2017-05-23] MEDS: ATORVASTATIN 40 MG TAB PO SCH (22:09)
[2017-05-23] MEDS: COLLAGENASE 250 UNIT/GM OINTMENT 30 GM TUBE TOPICAL SCH (22:09)
[2017-05-24] MEDS: SODIUM CHLORIDE 0.9% 1,000 ML IV SCH ×2 (04:16→17:52)
[2017-05-24] MEDS: VANCOMYCIN 750 MG in SODIUM CHLORIDE 0.9% 250 ML IVPB SCH ×2 (06:05→17:53)
[2017-05-24] MEDS: INSULIN LISPRO (humaLOG) 300 UNIT/3 ML VIAL SQ SCH ×6 (07:30→21:36)
[2017-05-24 07:48] LABS: Glucose,Whole Blood 54 mg/dL (75-99)
[2017-05-24 07:54] LABS: Glucose,Whole Blood 76 mg/dL (75-99)
--- NOTE | 2017-05-24 08:23 | CDI ---
In responding to this query, please exercise your independent professional judgment. The [facility] Coding Staff and Clinical Documentation Specialists appreciate your assistance in clarifying documentation, maintaining compliance with coding guidelines, accurately documenting patients condition and capturing severity of illness. The fact that a question is asked does not imply that any particular answer is desired or expected. Communication forms are a method of clarifying documentation and are not made part of the Legal Health Record. Thank you in advance for your clarification. Last Revision, September 2015 Suyapa Mata [address] [facility] [place] [address] Documentation Clarification Form Date: 05/24/2017 8:06:00 AM From: Chantal Trujillo RN, CDS Admit Date: 05/21/2017 3:32:00 PM Patient Name: Ambrose Berry Visit Number: [id number] Dr. Jeffry Barcenas, A pressure ulcer was documented in the H&P and progress note 05/23. Per documented past medical history patient has a Stage 3 Decubitus ulcer present on his sacral area and is noncompliant with follow up at wound care center. History/Risk Factors: 56 year old with history of PVD, Bilateral AKA, Diabetes Mellitus, coccyx wound stage 3 Clinical Indicators: Per Nurse wound assessment: 05/21 Bilat stump wound stage 2 , Sacrum pressure injury Stage 4. 05/22-05/23: Bilat stump wound stage 3, Sacrum pressure injury stage 3, Wound description: excoriation, erythema, foul odor, "Unstageable pressure ulcer" per H&P Treatment: Santyl wound dressings daily Elements for accurate and compliant documentation of an ulcer: * The location/laterality of the ulcer * Etiology (decubitus/pressure, diabetic, PVD) * Stage I-IV, Unstageable, Suspected Deep Tissue Injury (To the deepest stage) * If the ulcer was present at admission (POA) or occurred after admission In your professional opinion, can you please clarify the diagnosis, location, laterality and whether present on admission (POA): Stage 1 Pressure/Decubitus Ulcer (intact skin, non-blanching redness of local area) Stage 2 Pressure/Decubitus Ulcer (Partial thickness, loss of dermis, pink wound bed) Stage 3 Pressure/Decubitus Ulcer (Full thickness tissue loss) Stage 4 Pressure/Decubitus Ulcer (Full thickness tissue loss with exposed bone, tendon, or muscle. May have slough or eschar present) Unstageable Unable to determine Other condition, please specify * Please indicate cause (if known). Please document in your progress notes and discharge summary in order to capture severity of illness and risk of mortality. Include clinical findings that support your diagnosis. FYI: Press F11 to launch patient chart. OSEI
[2017-05-24 08:35] LABS: Anion Gap 8 mmol/L; Blood Urea Nitrogen 15 mg/dL (9-20); Calcium 7.9 mg/dL (8.4-10.2); Carbon Dioxide 16 mmol/L (22-30); Chloride 113 mmol/L (98-107); Glucose 70 mg/dL (74-99); Non-African American GFR(MDRD) >60 (>60 ml/min/1.73 sqM); Potassium 4.6 mmol/L (3.5-5.1); Sodium 137 mmol/L (137-145)
--- NOTE | 2017-05-24 08:39 | CDI ---
In responding to this query, please exercise your independent professional judgment. The [facility] Coding Staff and Clinical Documentation Specialists appreciate your assistance in clarifying documentation, maintaining compliance with coding guidelines, accurately documenting patients condition and capturing severity of illness. The fact that a question is asked does not imply that any particular answer is desired or expected. Communication forms are a method of clarifying documentation and are not made part of the Legal Health Record. Thank you in advance for your clarification. Last Revision, September [address] [facility] [place] [address] Documentation Clarification Form Date: 05/24/2017 8:24:00 AM From: Chantal Trujillo RN, CDS Admit Date: 05/21/2017 3:32:00 PM Patient Name: Ambrose Berry Visit Number: [id number] Dr. Jeffry Barcenas, 56 year old patient admitted for Diabetic Ketoacidosis. He has a a history of diabetes mellitus. Per H&P and progress note 05/23 " patient typically overdosed on methadone at home then doesn't eat then ends up in diabetic ketoacidosis and sepsis" Clinical Indicators: Glucose 737 on admission, Treatment: Insulin gtt, then sliding scale and Lantus In order to capture the severity of Illness and necessary documentation specificity, please clarify: DM Type 1 DM Type 2 Unable to Determine Other Condition Please document any body system complications or specific manifestations related to the diabetes: Diabetic Autonomic Neuropathy Diabetic Peripheral Vascular Disease Proliferative diabetic retinopathy with macular edema Diabetic foot ulcers, specify location Hyperglycemia Hyperosmolarity Coma/nonketotic hyperglycemic-hyperosmolar coma Other condition Please document in your progress notes and discharge summary in order to capture severity of illness and risk of mortality. Include clinical findings that support your diagnosis. FYI: Press F11 to launch patient chart. OSEI
--- NOTE | 2017-05-24 09:08 | CDI ---
In responding to this query, please exercise your independent professional judgment. The [facility] Coding Staff and Clinical Documentation Specialists appreciate your assistance in clarifying documentation, maintaining compliance with coding guidelines, accurately documenting patients condition and capturing severity of illness. The fact that a question is asked does not imply that any particular answer is desired or expected. Communication forms are a method of clarifying documentation and are not made part of the Legal Health Record. Thank you in advance for your clarification. Last Revision, September 2015 Suyapa Mata [address] [facility] [place] [address] Documentation Clarification Form Date: 05/24/2017 8:47:00 AM From: Chantal Trujillo RN, CDS Admit Date: 05/21/2017 3:32:00 PM Patient Name: Ambrose Berry Visit Number: [id number] Dr. Jeffry Barcenas, 56 year old patient admitted for Diabetic Ketoacidosis. He was found down at home, was down for unknown time, hose in disarray, . "Delirium due to general medical condition-medically debilitated, noncompliant, heavy narcotics abuser", "Altered mental status" per H&P and progress note 05/23. Clinical Indicators: Labs: "Disoriented, unable to comprehend" x 3 per Nursing Treatment: NS bolus, NS@500 then 200/hr then NS@100 In your professional opinion, can you please clarify the specific type of encephalopathy, if known? Metabolic Encephalopathy Toxic Encephalopathy Traumatic Encephalopathy Other, please specify Unable to determine Please document in your progress notes and discharge summary in order to capture severity of illness and risk of mortality. Include clinical findings that support your diagnosis. FYI: Press F11 to launch patient chart. MTDD
[2017-05-24] MEDS: DULoxetine HCL 30 MG CAPSULE.DR PO SCH ×2 (09:46→21:36)
[2017-05-24] MEDS: GABAPENTIN 300 MG CAP PO SCH ×3 (09:46→21:36)
[2017-05-24] MEDS: ENOXAPARIN 40 MG/0.4 ML SYRINGE SQ SCH (09:46)
[2017-05-24] MEDS: PANTOPRAZOLE 40 MG TABLET PO SCH (09:47)
[2017-05-24] MEDS: METHADONE 10 MG TAB PO PRN ×2 (09:47→17:51)
[2017-05-24] MEDS: hydrALAZINE HCL 50 MG TAB PO SCH ×3 (09:47→21:36)
[2017-05-24] MEDS: ASPIRIN 81 MG CHEW PO SCH (09:47)
[2017-05-24] MEDS: LOSARTAN 25 MG TAB PO SCH (09:49)
[2017-05-24] MEDS: INSULIN GLARGINE 100 UNIT/ML 10 ML VIAL SQ SCH (09:49)
[2017-05-24 11:56] LABS: Glucose,Whole Blood 165 mg/dL (75-99)
[2017-05-24] MEDS: MULTIVITAMINS, THERA 1 EACH TAB PO SCH (13:49)
--- NOTE | 2017-05-24 16:23 | P.PN ---
Subjective Principal diagnosis: Patient is awake alert vital signs are stable today sugar is better controlled patient has a history of noncompliance with diabetic meds and diet, he is also somewhat noncompliant and abusive with his pain meds although and most recent months seems to be improved. Most recently was admitted via the emergency room unconscious sugar was very high and appears that patient take his once again not taking meds appropriately will stabilize sugars pain meds antihypertensives and discharge patient home next 24-48 hours Patient is awake alert and stable, at this time patient will be left on Levemir 20 units at at bedtime. And started on scale to assess insulin requirements during the day and will reestablish those requirements after a 24-hour period and is requirements are noted Objective - Vital Signs Vital signs: Vital Signs Temp 97.9 F 05/24/17 15:00 Pulse 82 05/24/17 15:00 Resp 16 05/24/17 15:00 BP 144/81 05/24/17 15:00 Pulse Ox 99 05/24/17 15:00 Intake & Output 05/23/17 05/24/17 05/24/17 18:59 06:59 18:59 Intake Total 120 360 Output Total 275 1000 250 Balance -155 -1000 110 Weight 37.5 kg Intake: Oral 120 360 Output: Urine 275 1000 250 Straight 500 Uretheral (Castañeda) 275 Other: Voiding Method Indwelling Catheter Indwelling Catheter # Voids 1 # Bowel Movements 1 3 - Exam General: [Patient awake, alert and oriented times 3. Patient in no acute distress.] HEENT: [PERRL. EOMI. No pharyngeal erythema or exudate.] Neck: [No adenopathy.] Cardiac: [Heart regular in rate and rhythm. No S3. No S4. No clicks, rubs. No murmur.] Lungs: [Clear to auscultation bilaterally.] Abdomen: [No mass. No organomegaly. Bowel sounds presnt and normoactive in all 4 quadrants.] Extremes: Patient has BKA bilaterally, also has large sacral decub approximately 8 cm x 8 cm x 8 am able to visualize bone there is a large amount of drainage patient will resume appropriate wound care Musculoskeletal: [No joint erythema, edema or tenderness.] Skin: [No rash.] Neurologic: [No lateralizing deficits. CN II - XII grossly intact.] Lymphatic: [No adenopathy.] - Labs CBC & Chem 7: 05/21/17 15:35 05/24/17 07:53 Labs: Abnormal Lab Results - Last 24 Hours (Table) 05/23/17 05/23/17 05/24/17 Range/Units 17:24 20:16 07:27 Chloride 111 H (98-107) mmol/L Carbon Dioxide 21 L (22-30) mmol/L Creatinine 0.60 L (0.66-1.25) mg/dL Glucose 56 L (74-99) mg/dL POC Glucose (mg/dL) 177 H 54 L (75-99) mg/dL Calcium 8.0 L (8.4-10.2) mg/dL 05/24/17 05/24/17 Range/Units 07:53 11:48 Chloride 113 H (98-107) mmol/L Carbon Dioxide 16 L (22-30) mmol/L Creatinine 0.63 L (0.66-1.25) mg/dL Glucose 70 L (74-99) mg/dL POC Glucose (mg/dL) 165 H (75-99) mg/dL Calcium 7.9 L (8.4-10.2) mg/dL Microbiology - Last 24 Hours (Table) 05/21/17 15:35 Blood Culture - Preliminary Blood No Growth after 48 hours Assessment and Plan (1) DKA (diabetic ketoacidoses) Narrative/Plan: Tolerating appropriate diet patient is awake alert DKA has resolved Status: Acute (2) Delirium due to general medical condition Narrative/Plan: Medically debilitated, noncompliant, heavy narcotics abuser, patient is currently awake alert his vital signs are stable tolerating diet anticipate discharge home the next 24-48 hours Status: Acute (3) Unstageable pressure ulcer Narrative/Plan: Patient is noncompliant with recommendations from wound center, missed last wound center visit, typically sees Dr. Chong Status: Acute (4) Altered mental status Narrative/Plan: DKA has resolved, patient typically overdoses on methadone at home, then doesn' t eat, then ends up in diabetic ketoacidosis and sepsis will continue antibiotic therapy and fluid resuscitation and hold narcotics until patient awakens more clearly Status: Acute (5) Anemia Narrative/Plan: Anemia of chronic disease, also secondary to self-imposed malnutrition encourage oral intake aggressively Status: Acute Plan: May take off telemetry and transferred to general medical floor anticipate discharge tomorrow
[2017-05-24 17:52] LABS: Glucose,Whole Blood 90 mg/dL (75-99)
[2017-05-24 21:20] LABS: Glucose,Whole Blood 313 mg/dL (75-99)
[2017-05-24] MEDS: ATORVASTATIN 40 MG TAB PO SCH (21:35)
[2017-05-24] MEDS: INSULIN DETEMIR 100 UNIT/ML 10 ML VIAL SQ SCH (21:36)
[2017-05-24] MEDS: COLLAGENASE 250 UNIT/GM OINTMENT 30 GM TUBE TOPICAL SCH (21:37)
[2017-05-25] MEDS: SODIUM CHLORIDE 0.9% 1,000 ML IV SCH ×2 (00:28→12:26)
[2017-05-25 02:09] LABS: Glucose,Whole Blood 254 mg/dL (75-99)
[2017-05-25] MEDS: VANCOMYCIN 750 MG in SODIUM CHLORIDE 0.9% 250 ML IVPB SCH (05:45)
[2017-05-25 07:41] LABS: Glucose,Whole Blood 138 mg/dL (75-99)
--- NOTE | 2017-05-25 07:44 | CDI ---
In responding to this query, please exercise your independent professional judgment. The [facility] Coding Staff and Clinical Documentation Specialists appreciate your assistance in clarifying documentation, maintaining compliance with coding guidelines, accurately documenting patients condition and capturing severity of illness. The fact that a question is asked does not imply that any particular answer is desired or expected. Communication forms are a method of clarifying documentation and are not made part of the Legal Health Record. Thank you in advance for your clarification. Last Revision, September 2015 Suyapa Mata [address] [facility] [place] [address] Documentation Clarification Form Date: 05/24/2017 8:47:00 AM From: Chantal Trujillo RN, CDS Admit Date: 05/21/2017 3:32:00 PM Patient Name: Ambrose Berry Visit Number: [id number] Dr. Jeffry Barcenas, 56 year old patient admitted for Diabetic Ketoacidosis. He was found down at home, was down for unknown time, hose in disarray, . "Delirium due to general medical condition-medically debilitated, noncompliant, heavy narcotics abuser", "Altered mental status" per H&P and progress note 05/23. Clinical Indicators: Labs: "Disoriented, unable to comprehend" x 3 per Nursing Treatment: NS bolus, NS@500 then 200/hr then NS@100 In your professional opinion, can you please clarify the specific type of encephalopathy, if known? Metabolic Encephalopathy Toxic Encephalopathy Traumatic Encephalopathy Other, please specify Unable to determine Please document in your progress notes and discharge summary in order to capture severity of illness and risk of mortality. Include clinical findings that support your diagnosis. FYI: Press F11 to launch patient chart. Place X here if this finding has no clinical significance, is not applicable or if you are not able to provide any additional documentation. FILIPPOD
--- NOTE | 2017-05-25 07:47 | CDI ---
In responding to this query, please exercise your independent professional judgment. The [facility] Coding Staff and Clinical Documentation Specialists appreciate your assistance in clarifying documentation, maintaining compliance with coding guidelines, accurately documenting patients condition and capturing severity of illness. The fact that a question is asked does not imply that any particular answer is desired or expected. Communication forms are a method of clarifying documentation and are not made part of the Legal Health Record. Thank you in advance for your clarification. Last Revision, September 2015 Suyapa Mata [address] [facility] [place] [address] Documentation Clarification Form Date: 05/24/2017 8:24:00 AM From: Chantal Trujillo RN, CDS Admit Date: 05/21/2017 3:32:00 PM Patient Name: Ambrose Berry Visit Number: [id number] Dr. Jeffry Barcenas, 56 year old patient admitted for Diabetic Ketoacidosis. He has a a history of diabetes mellitus. Per H&P and progress note 05/23 " patient typically overdosed on methadone at home then doesn't eat then ends up in diabetic ketoacidosis and sepsis" Clinical Indicators : Glucose 737 on admission, Treatment: Insulin gtt, then sliding scale and Lantus In order to capture the severity of Illness and necessary documentation specificity, please clarify: DM Type 1 DM Type 2 Unable to Determine Other Condition Please document any body system complications or specific manifestations related to the diabetes: Diabetic Autonomic Neuropathy Diabetic Peripheral Vascular Disease Proliferative diabetic retinopathy with macular edema Diabetic foot ulcers, specify location Hyperglycemia Hyperosmolarity Coma/nonketotic hyperglycemic-hyperosmolar coma Other condition Please document in your progress notes and discharge summary in order to capture severity of illness and risk of mortality. Include clinical findings that support your diagnosis. FYI: Press F11 to launch patient chart. Place X here if this finding has no clinical significance, is not applicable or if you are not able to provide any additional documentation. FILIPPOD
--- NOTE | 2017-05-25 07:51 | CDI ---
In responding to this query, please exercise your independent professional judgment. The [facility] Coding Staff and Clinical Documentation Specialists appreciate your assistance in clarifying documentation, maintaining compliance with coding guidelines, accurately documenting patients condition and capturing severity of illness. The fact that a question is asked does not imply that any particular answer is desired or expected. Communication forms are a method of clarifying documentation and are not made part of the Legal Health Record. Thank you in advance for your clarification. Last Revision, September 2015 Suyapa Mata [address] [facility] [place] [address] Documentation Clarification Form Date: 05/24/2017 8:06:00 AM From: Chantal Trujillo RN, CDS Admit Date: 05/21/2017 3:32:00 PM Patient Name: Ambrose Berry Visit Number: [id number] Dr. Jeffry Barcenas, A pressure ulcer was documented in the H&P and progress note 05/23. Per documented past medical history patient has a Stage 3 Decubitus ulcer present on his sacral area and is noncompliant with follow up at wound care center. History/Risk Factors: 56 year old with history of PVD, Bilateral AKA, Diabetes Mellitus, coccyx wound stage 3 Clinical Indicators: Per Nurse wound assessment: 05/21 Bilat stump wound stage 2 , Sacrum pressure injury Stage 4. 05/22-05/23: Bilat stump wound stage 3, Sacrum pressure injury stage 3, Wound description: excoriation, erythema, foul odor, "Unstageable pressure ulcer" per H&P Treatment: Santyl wound dressings daily Elements for accurate and compliant documentation of an ulcer: * The location/laterality of the ulcer * Etiology (decubitus/pressure, diabetic, PVD) * Stage I-IV, Unstageable, Suspected Deep Tissue Injury (To the deepest stage) * If the ulcer was present at admission (POA) or occurred after admission In your professional opinion, can you please clarify the diagnosis, location, laterality and whether present on admission (POA): Stage 1 Pressure/Decubitus Ulcer (intact skin, non-blanching redness of local area) Stage 2 Pressure/Decubitus Ulcer (Partial thickness, loss of dermis, pink wound bed) Stage 3 Pressure/Decubitus Ulcer (Full thickness tissue loss) Stage 4 Pressure/Decubitus Ulcer (Full thickness tissue loss with exposed bone, tendon, or muscle. May have slough or eschar present) Unstageable Unable to determine Other condition, please specify * Please indicate cause (if known). Please document in your progress notes and discharge summary in order to capture severity of illness and risk of mortality. Include clinical findings that support your diagnosis. FYI: Press F11 to launch patient chart. Place X here if this finding has no clinical significance, is not applicable or if you are not able to provide any additional documentation. MTDD
[2017-05-25] MEDS: ENOXAPARIN 40 MG/0.4 ML SYRINGE SQ SCH (08:28)
[2017-05-25] MEDS: INSULIN LISPRO (humaLOG) 300 UNIT/3 ML VIAL SQ SCH ×3 (08:28→17:53)
[2017-05-25] MEDS: PANTOPRAZOLE 40 MG TABLET PO SCH (08:28)
[2017-05-25] MEDS: ASPIRIN 81 MG CHEW PO SCH (08:29)
[2017-05-25] MEDS: hydrALAZINE HCL 50 MG TAB PO SCH ×2 (08:29→16:43)
[2017-05-25] MEDS: METHADONE 10 MG TAB PO PRN ×2 (08:29→16:41)
[2017-05-25] MEDS: DULoxetine HCL 30 MG CAPSULE.DR PO SCH (08:29)
[2017-05-25] MEDS: GABAPENTIN 300 MG CAP PO SCH ×2 (08:29→16:41)
[2017-05-25] MEDS: LOSARTAN 25 MG TAB PO SCH (08:30)
[2017-05-25 10:29] LABS: Anion Gap 5 mmol/L; Blood Urea Nitrogen 13 mg/dL (9-20); Carbon Dioxide 19 mmol/L (22-30); Chloride 111 mmol/L (98-107); Glucose 138 mg/dL (74-99); Non-African American GFR(MDRD) >60 (>60 ml/min/1.73 sqM); Potassium 5.1 mmol/L (3.5-5.1); Sodium 135 mmol/L (137-145)
[2017-05-25] MEDS: MULTIVITAMINS, THERA 1 EACH TAB PO SCH (12:25)
[2017-05-25 12:49] LABS: Glucose,Whole Blood 210 mg/dL (75-99)
[2017-05-25 15:19] VITALS: BP 188/87; PULSE 83; RESP 18; TEMP 96.7
[2017-05-25 15:45] VITALS: BMI 24.2
[2017-05-25] MEDS ORDERED: INSULIN LISPRO (humaLOG) 300 UNIT/3 ML VIAL SQ SCH (17:30)
--- NOTE | 2017-05-25 17:47 | P.DS ---
Providers Date of admission: 05/21/17 15:32 Expected date of discharge: 05/25/17 Attending physician: Brent Chong Primary care physician: Brent Chong - Discharge Diagnosis(es) (1) DKA (diabetic ketoacidoses) Current Visit: Yes Status: Acute (2) Delirium due to general medical condition Current Visit: Yes Status: Acute (3) Unstageable pressure ulcer Current Visit: Yes Status: Acute (4) Altered mental status Current Visit: No Status: Acute (5) Anemia Current Visit: No Status: Acute Priority: Medium Hospital Course: General: [Patient awake, alert and oriented times 3. Patient in no acute distress.] HEENT: [PERRL. EOMI. No pharyngeal erythema or exudate.] Neck: [No adenopathy.] Cardiac: [Heart regular in rate and rhythm. No S3. No S4. No clicks, rubs. No murmur.] Lungs: [Clear to auscultation bilaterally.] Abdomen: [No mass. No organomegaly. Bowel sounds presnt and normoactive in all 4 quadrants.] Extremes: Bilateral AKA, 8 cm x 8 cm sacral decub with exposed bone : [] Musculoskeletal: [No joint erythema, edema or tenderness.] Skin: [No rash.] Neurologic: [No lateralizing deficits. CN II - XII grossly intact.] Lymphatic: [No adenopathy.] Patient Condition at Discharge: Stable Plan - Discharge Summary New Discharge Prescriptions: No Action Carvedilol [Coreg] 6.25 mg PO BID Gabapentin [Neurontin] 300 mg PO TID Omeprazole 20 mg PO DAILY Multivitamins, Thera [Multivitamin (formulary)] 1 tab PO DAILY Methadone [Dolophine] 10 mg PO Q8HR #21 tab Aspirin 81 mg PO DAILY chew Calcium Carbonate [Tums] 500 mg PO TID PRN #0 chew PRN Reason: Heartburn DULoxetine HCL [Cymbalta] 30 mg PO BID hydrALAZINE HCL [Apresoline] 50 mg PO TID Insulin Glargine [Lantus] 38 unit SQ DAILY INSULIN LISPRO (humaLOG) [humaLOG (formulary)] 8 units SQ AC-TID Losartan Potassium 25 mg PO DAILY Insulin Detemir [Levemir] 20 unit SQ HS vial Atorvastatin [Lipitor] 40 mg PO HS Collagenase [Santyl] 1 applic TOPICAL DAILY Discharge Medication List Carvedilol [Coreg] 6.25 mg PO BID 06/13/14 [History] Gabapentin [Neurontin] 300 mg PO TID 01/28/16 [History] Omeprazole 20 mg PO DAILY 06/12/16 [History] Multivitamins, Thera [Multivitamin (formulary)] 1 tab PO DAILY 10/13/16 [History ] Methadone [Dolophine] 10 mg PO Q8HR #21 tab 11/12/16 [Rx] Aspirin 81 mg PO DAILY chew 02/10/17 [Rx] Calcium Carbonate [Tums] 500 mg PO TID PRN #0 chew 02/10/17 [Rx] DULoxetine HCL [Cymbalta] 30 mg PO BID 04/06/17 [History] INSULIN LISPRO (humaLOG) [humaLOG (formulary)] 4 units SQ AC-TID 04/06/17 [ History] Insulin Glargine [Lantus] 0 unit SQ DAILY 04/06/17 [History] Losartan Potassium 25 mg PO DAILY 04/06/17 [History] hydrALAZINE HCL [Apresoline] 50 mg PO TID 04/06/17 [History] Insulin Detemir [Levemir] 20 unit SQ HS vial 04/26/17 [Rx] Atorvastatin [Lipitor] 40 mg PO HS 05/21/17 [History] Collagenase [Santyl] 1 applic TOPICAL DAILY 05/21/17 [History] Follow up Appointment(s)/Referral(s): [facility], [NON-STAFF] - Brent Chong MD [Primary Care Provider] - 1-2 days
[2017-05-25 17:48] LABS: Glucose,Whole Blood 319 mg/dL (75-99)
== END 2017-05-25 18:35 | disposition home health service (06) | DRG 637 ==
LOC: EC 15:03 → 6SEL 15:32 → 4MS4W 05-23 12:49
PROVIDERS: ADMIT Family Medicine; ATTEND Family Medicine
PROC: 0T9B70Z Drainage of Bladder with Drainage Device, Via Natural or Artificial Opening (ICD-10-PCS; principal; 2017-05-21)
DX: E13.10 Other specified diabetes mellitus with ketoacidosis without coma (principal); L89.153 Pressure ulcer of sacral region, stage 3; E46 Unspecified protein-calorie malnutrition; R64 Cachexia; F05 Delirium due to known physiological condition; D63.8 Anemia in other chronic diseases classified elsewhere; E11.51 Type 2 diabetes mellitus with diabetic peripheral angiopathy without gangrene; J44.9 Chronic obstructive pulmonary disease, unspecified; E86.0 Dehydration; G47.10 Hypersomnia, unspecified; G43.909 Migraine, unspecified, not intractable, without status migrainosus; B19.20 Unspecified viral hepatitis C without hepatic coma; M54.9 Dorsalgia, unspecified; G89.29 Other chronic pain; F32.9 Major depressive disorder, single episode, unspecified; F11.10 Opioid abuse, uncomplicated; F17.200 Nicotine dependence, unspecified, uncomplicated; Z80.0 Family history of malignant neoplasm of digestive organs; Z79.4 Long term (current) use of insulin; Z79.899 Other long term (current) drug therapy; Z80.8 Family history of malignant neoplasm of other organs or systems; Z82.49 Family history of ischemic heart disease and other diseases of the circulatory system; Z68.24 Body mass index [BMI] 24.0-24.9, adult; Z71.3 Dietary counseling and surveillance; Z91.19 Patient's noncompliance with other medical treatment and regimen; Z86.19 Personal history of other infectious and parasitic diseases; Z88.1 Allergy status to other antibiotic agents; Z88.5 Allergy status to narcotic agent; Z91.11 Patient's noncompliance with dietary regimen; Z91.14 Patient's other noncompliance with medication regimen; Z16.24 Resistance to multiple antibiotics; Z90.49 Acquired absence of other specified parts of digestive tract; Z87.01 Personal history of pneumonia (recurrent); Z86.14 Personal history of Methicillin resistant Staphylococcus aureus infection; Z87.11 Personal history of peptic ulcer disease; Z79.82 Long term (current) use of aspirin; W19.XXXA Unspecified fall, initial encounter
CPT/HCPCS: 36415; 71010; 72170; 80048; 80051; 80053; 80202; 81001; 82009; 82140; 82550; 82553; 82565; 82947; 83036; 83605; 83735; 84100; 84484; 84520; 85025; 85610; 85730; 87040; 87086; 94760

== ENCOUNTER 2017-06-11 13:26 | Emergency (ER) | payer OTHER ==
[2017-06-11 13:35] VITALS: BP 159/81; PULSE 90; RESP 18; TEMP 98.1
[2017-06-11] MEDS ORDERED: HYDROmorphone 2 MG/ML 1 ML SYRINGE IM STA (13:44)
--- NOTE | 2017-06-11 13:48 | ED ---
General Adult HPI - General Stated complaint: Skin Ulcer Source: EMS Mode of arrival: EMS Limitations: no limitations - History of Present Illness Initial comments: 56-year-old male patient presents to emergency department today with complaints of pain to his lower back and coccyx where he does have what appears to be stage 3-4 pressure ulcer. He states his wound is chronic and he has had it for the last year. Patient states that he does receive wound care for this and he was into the wound center yesterday for debridement and packing. Patient states that last night and all day today he has been having severe pain. Patient states that this is normal for him however he is out of his methadone. Patient states that he did have to take a couple extra and therefore ran out of the medication early. He gets his new prescription on 06/17/2017. He denies any headache, neck pain, chest pain, shortness of breath, abdominal pain, nausea , vomiting, dizziness, weakness, fever, or chills. Denies any rash, hematuria, dysuria, urinary frequency, urinary urgency, constipation, or diarrhea. States that he just needs pain medication to get him through until he can get his new prescription. - Related Data Home Medications Medication Instructions Recorded Confirmed Carvedilol [Coreg] 6.25 mg PO BID 06/13/14 06/10/17 Gabapentin [Neurontin] 300 mg PO TID 01/28/16 06/10/17 Omeprazole 20 mg PO DAILY 06/12/16 06/10/17 Multivitamins, Thera [Multivitamin 1 tab PO DAILY 10/13/16 06/10/17 (formulary)] DULoxetine HCL [Cymbalta] 30 mg PO BID 04/06/17 06/10/17 INSULIN LISPRO (humaLOG) [humaLOG 4 units SQ AC-TID 04/06/17 06/10/17 (formulary)] Insulin Glargine [Lantus] 0 unit SQ DAILY 04/06/17 06/10/17 Losartan Potassium 25 mg PO DAILY 04/06/17 06/10/17 hydrALAZINE HCL [Apresoline] 50 mg PO TID 04/06/17 06/10/17 Atorvastatin [Lipitor] 40 mg PO HS 05/21/17 06/10/17 Collagenase [Santyl] 1 applic TOPICAL DAILY 05/21/17 06/10/17 Previous Rx's Medication Instructions Recorded Methadone [Dolophine] 10 mg PO Q8HR #21 tab 11/12/16 Aspirin 81 mg PO DAILY chew 02/10/17 Calcium Carbonate [Tums] 500 mg PO TID PRN #0 chew 02/10/17 Insulin Detemir [Levemir] 20 unit SQ HS vial 04/26/17 HYDROcodone/IBUPROFEN 7.5-200 1 tab PO Q6H PRN #24 tab 06/11/17 [Vicoprofen 7.5-200 mg] Allergies Allergy/AdvReac Type Severity Reaction Status Date / Time piperacillin [From Zosyn] Allergy Severe Dyspnea Verified 06/10/17 14:48 tazobactam [From Zosyn] Allergy Severe Dyspnea Verified 06/10/17 14:48 tramadol Allergy Unknown Verified 06/10/17 14:48 fentanyl AdvReac Lightheaded Verified 06/10/17 14:48 ketorolac tromethamine AdvReac Nausea Verified 06/10/17 14:48 [From Toradol] Review of Systems ROS Statement: Those systems with pertinent positive or pertinent negative responses have been documented in the HPI. ROS Other: All systems not noted in ROS Statement are negative. 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, left apical lung lesion, chronic back pain, chronic anemia, gastric ulcer disease , migraine, multiple infections including infections with MRSA, VRE, Pseudomonas multidrug resistant as evident in the wound cultures from the coccyx also wound [facility] ed[facility], History of Any Multi-Drug Resistant Organisms: MRSA, Other MDRO, VRE Date of last positivie culture/infection: 03/18/17-MRSA; 04/05/17-VRE; 04/21/17- MDRO-PSEUDOMONAS MDRO Source:: wounds Past Surgical History: Adenoidectomy, Appendectomy, Heart Catheterization, Hernia Repair, Orthopedic Surgery, Tonsillectomy Additional Past Surgical History / Comment(s): R BKA, R BKA revision to AKA, L AKA , rt arm picc line -since removed Past Anesthesia/Blood Transfusion Reactions: No Reported Reaction Additional Past Anesthesia/Blood Transfusion Reaction / Comment(s): Pt recently received blood- no reaction Past Psychological History: Depression Smoking Status: Current every day smoker Past Alcohol Use History: None Reported, Unable to Obtain Past Drug Use History: None Reported - Past Family History Mother Family Medical History: Cancer Additional Family Medical History / Comment(s): Mother of brain cancer mets at the age of 68 yrs. Father Family Medical History: Cancer, Coronary Artery Disease (CAD) Additional Family Medical History / Comment(s): Father of throat cancer at the age of 70yrs. General Exam Limitations: no limitations General appearance: alert, in no apparent distress Head exam: Present: atraumatic, normocephalic, normal inspection Eye exam: Present: normal appearance, PERRL, EOMI. Absent: scleral icterus, conjunctival injection, periorbital swelling ENT exam: Present: normal exam, mucous membranes moist Neck exam: Present: normal inspection. Absent: tenderness, meningismus, lymphadenopathy Respiratory exam: Present: normal lung sounds bilaterally. Absent: respiratory distress, wheezes, rales, rhonchi, stridor Cardiovascular Exam: Present: regular rate, normal rhythm, normal heart sounds. Absent: systolic murmur, diastolic murmur, rubs, gallop, clicks GI/Abdominal exam: Present: soft, normal bowel sounds. Absent: distended, tenderness, guarding, rebound, rigid Extremities exam: Present: normal inspection, full ROM, normal capillary refill. Absent: tenderness, pedal edema, joint swelling, calf tenderness Back exam: Absent: normal inspection (Right lower back, and coccyx area stage 3- 4 pressure ulcer noted. Dressing was saturated with moderate amount of foul smelling serous drainage. ) Neurological exam: Present: alert, oriented X3, CN II-XII intact Psychiatric exam: Present: normal affect, normal mood Skin exam: Present: warm, dry, intact, normal color. Absent: rash Course Vital Signs 06/11/17 13:28 Temperature 98.1 F Pulse Rate 90 Respiratory 18 Rate Blood Pressure 159/81 O2 Sat by Pulse 99 Oximetry Medical Decision Making - Medical Decision Making 56-year-old male patient presented today for complaints of pain to the area where he has a chronic decubitus ulcer. Patient states that he has had this wound for the last year. He has been receiving treatment and just did have a debridement at the wound center yesterday. Patient states his only complaint was pain to the area as he is out of his methadone. Patient will be given an IM injection of 2 mg of Dilaudid here for pain control. He'll also be discharged with a prescription for Vicoprofen to get him through until he can have his methadone refilled. Physical exam otherwise was unremarkable. Vital signs are stable patient is afebrile. Patient struck a pop his primary care physician in one to 2 days for recheck. Patient struck his return immediately for any new, worsening, or concerning symptoms. Disposition Clinical Impression: Pressure ulcer, Chronic pain Disposition: HOME SELF-CARE Condition: Fair Instructions: Pressure Ulcer (ED) Additional Instructions: Take pain medication as directed. Follow up with primary care physician for recheck in 1-2 days. Obtain further prescriptions from her primary doctor. Return for any new, worsening, or concerning symptoms. Prescriptions: HYDROcodone/IBUPROFEN 7.5-200 [Vicoprofen 7.5-200 mg] 1 tab PO Q6H PRN #24 tab PRN Reason: Pain Referrals: Brent Chong MD [Primary Care Provider] - 1-2 days Time of Disposition: 13:47
== END 2017-06-11 14:09 | disposition home or self-care (01) ==
LOC: EC 13:26
DX: L89.134 Pressure ulcer of right lower back, stage 4 (principal); L89.154 Pressure ulcer of sacral region, stage 4; G89.29 Other chronic pain; M54.5 Low back pain; J44.9 Chronic obstructive pulmonary disease, unspecified; E10.9 Type 1 diabetes mellitus without complications; D64.9 Anemia, unspecified; F32.9 Major depressive disorder, single episode, unspecified; F17.200 Nicotine dependence, unspecified, uncomplicated; Z79.4 Long term (current) use of insulin; Z79.899 Other long term (current) drug therapy; Z88.1 Allergy status to other antibiotic agents; Z88.5 Allergy status to narcotic agent; Z88.6 Allergy status to analgesic agent
CPT/HCPCS: 99283; 96372; J1170

== ENCOUNTER 2017-06-20 13:49 | Inpatient (IN) | payer OTHER ==
[2017-06-20] MEDS ORDERED: SODIUM CHLORIDE 0.9% 500 ML IV ONE (14:05)
[2017-06-20] MEDS ORDERED: SODIUM CHLORIDE 0.9% 1,000 ML IV ONE ×2 (14:05→23:44)
[2017-06-20 14:16] LABS: Glucose,Whole Blood >600 mg/dL (75-99)
[2017-06-20] MEDS ORDERED: INSULIN REGULAR 100 UNIT/ML VIAL IV ONE ×2 (14:19→14:25)
--- NOTE | 2017-06-20 14:21 | ED ---
General Adult HPI - General Stated complaint: HYPERGLYCEMIA Time Seen by Provider: 06/20/17 14:00 Source: patient, EMS, RN notes reviewed, old records reviewed - History of Present Illness Initial comments: Chief complaint and history of present illness this is a 56-year-old male brought to emergency by ambulance. EMS reports that they visited his home yesterday because he fell out of his wheelchair. He was alert and oriented at that time. Today they were called back because of altered level. Apparently the patient lives by himself in a neighbor made a phone call. The patient does not know how they were called yesterday or today. Patient answers some questions appropriately but others not. He is hard of hearing. The patient has had amputations bilateral above-knee and he has a large decubitus ulcer on his buttocks. Blood sugar was reported to be high.. Accu-Chek on emergency room shows to be over 600.. Patient denying any significant pain. Alert to person and place . Again, answers many questions incorrectly. - Related Data Home Medications Medication Instructions Recorded Confirmed Carvedilol [Coreg] 6.25 mg PO BID 06/13/14 06/10/17 Gabapentin [Neurontin] 300 mg PO TID 01/28/16 06/10/17 Omeprazole 20 mg PO DAILY 06/12/16 06/10/17 Multivitamins, Thera [Multivitamin 1 tab PO DAILY 10/13/16 06/10/17 (formulary)] DULoxetine HCL [Cymbalta] 30 mg PO BID 04/06/17 06/10/17 INSULIN LISPRO (humaLOG) [humaLOG 4 units SQ AC-TID 04/06/17 06/10/17 (formulary)] Insulin Glargine [Lantus] 0 unit SQ DAILY 04/06/17 06/10/17 Losartan Potassium 25 mg PO DAILY 04/06/17 06/10/17 hydrALAZINE HCL [Apresoline] 50 mg PO TID 04/06/17 06/10/17 Atorvastatin [Lipitor] 40 mg PO HS 05/21/17 06/10/17 Collagenase [Santyl] 1 applic TOPICAL DAILY 05/21/17 06/10/17 Previous Rx's Medication Instructions Recorded Methadone [Dolophine] 10 mg PO Q8HR #21 tab 11/12/16 Aspirin 81 mg PO DAILY chew 02/10/17 Calcium Carbonate [Tums] 500 mg PO TID PRN #0 chew 02/10/17 Insulin Detemir [Levemir] 20 unit SQ HS vial 04/26/17 HYDROcodone/IBUPROFEN 7.5-200 1 tab PO Q6H PRN #24 tab 06/11/17 [Vicoprofen 7.5-200 mg] Allergies Allergy/AdvReac Type Severity Reaction Status Date / Time piperacillin [From Zosyn] Allergy Severe Dyspnea Verified 06/10/17 14:48 tazobactam [From Zosyn] Allergy Severe Dyspnea Verified 06/10/17 14:48 tramadol Allergy Unknown Verified 06/10/17 14:48 fentanyl AdvReac Lightheaded Verified 06/10/17 14:48 ketorolac tromethamine AdvReac Nausea Verified 06/10/17 14:48 [From Toradol] Review of Systems ROS Statement: Those systems with pertinent positive or pertinent negative responses have been documented in the HPI. Review of systems. Review of systems. The patient's not necessarily answering questions totally appropriately. By does state when asked if he has a headache he says yes denies chest pain he does have sacral pain as noted when it was being cleaned. Presents confused. States he is hard of hearing. Does not know who called the ambulance when he has difficulties. Past medical problems as gleaned from past charts because the patient unable to give a good history. ALLERGIES include that breast silicon, tazobactam, tramadol , fentanyl, ketorolac. Past medical problems Include COPD, insulin-dependent diabetes mellitus, hep C, chronic muscle skeletal disorder, pneumonia, respiratory disorder, vascular peripheral disease. Hepatitis C as noted above. Bilateral above-knee amputations., Tonsils and adenoids, appendectomy, heart catheterization as well as hernia repair. 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 Family history old chart reports mother of brain cancer, father of throat cancer. Ex-smoker ROS Other: All systems not noted in ROS Statement are negative. 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, left apical lung lesion, chronic back pain, chronic anemia, gastric ulcer disease , migraine, multiple infections including infections with MRSA, VRE, Pseudomonas multidrug resistant as evident in the wound cultures from the coccyx also [facility] ed[facility], History of Any Multi-Drug Resistant Organisms: MRSA, Other MDRO, VRE Date of last positivie culture/infection: 03/18/17-MRSA; 04/05/17-VRE; 04/21/17- MDRO-PSEUDOMONAS MDRO Source:: wounds Past Surgical History: Adenoidectomy, Appendectomy, Heart Catheterization, Hernia Repair, Orthopedic Surgery, Tonsillectomy Additional Past Surgical History / Comment(s): R BKA, R BKA revision to AKA, L AKA , rt arm picc line -since removed Past Anesthesia/Blood Transfusion Reactions: No Reported Reaction Additional Past Anesthesia/Blood Transfusion Reaction / Comment(s): Pt recently received blood- no reaction Smoking Status: Current every day smoker Past Alcohol Use History: None Reported, Unable to Obtain - Past Family History Mother Family Medical History: Cancer Additional Family Medical History / Comment(s): Mother of brain cancer mets at the age of 68 yrs. Father Family Medical History: Cancer, Coronary Artery Disease (CAD) Additional Family Medical History / Comment(s): Father of throat cancer at the age of 70yrs. General Exam - General Exam Comments Initial Comments: General: The patient is awake , but confused with some of his answers. Vital signs shows a heart rate of 84 , respiratory rate 18 initial blood pressure 163/119. This be repeated. Pulse ox 97% on room air Eye: Pupils are equal, round and reactive to light, extra-ocular movements are intact ; there is normal conjunctiva bilaterally. No signs of icterus. Ears, nose, mouth and throat: dry mucous membranes. Patient's nearly edentulous.. Neck: The neck is supple, there is no tenderness , no JVD Cardiovascular: There is a regular rate and rhythm. No murmur, rub or gallop is appreciated. Respiratory: Lungs are clear to auscultation, respirations are non-labored, breath sounds are equal. No wheezes, stridor, rales, or rhonchi. Gastrointestinal: Soft, non-distended, non-tender abdomen without masses or organomegaly noted. There is no rebound or guarding present. No CVA tenderness. Bowel sounds are unremarkable. Back: large long-standing sacral decubitus ulcer also small one developing on the right ischium Musculoskeletal: bilateral above-knee amputations. Neurological: elevated blood sugar, greater than 600. Confused. Skin: pale skin color Psychiatric: past history depression Course Vital Signs 06/20/17 13:53 Temperature 98.8 F Pulse Rate 84 Respiratory 18 Rate Blood Pressure 163/119 O2 Sat by Pulse 97 Oximetry Medical Decision Making - Medical Decision Making Medical decision making; patient's white count 4.1 hemoglobin 8.4 hematocrit of 30. INR is 1.0, potassium 5.0. BUN is 22 creatinine 0.7 and GFR greater than 60. Leukos is significantly elevated 1212. Ammonia less than 9. Urine shows large leuk esterase and 2 rbc's with greater than 180 WBCs. Acetone was positive. CT the brain was doneAnd reviewed by radiologist his final impression is no acute abnormality. As read by Dr. Doan chest x-ray was done AP and lateral view and compared to previous chest x-rays. Patient does have left upper lobe nodule, versus granuloma .. Also evidence of a healing rib fracture right #6. COPD type changes. Heart size normal limits. No acute urinary process appreciated. Awaiting radiologist's final impression. x-ray of the chest was reviewed by radiologist his findings are there is no focal airspace opacity, pleural effusion, or pneumothorax seen. Calcified granuloma again seen in the left mid chest. Patient is rotated. Apical pleural thickening is stable. Interstitium is mildly increased. Emphysematous changes are suspected. Cardiac silhouette size is within normal limits. Old right sided rib fracture show healing. The osseous structures are intact. No acute cardiopulmonary process. As read by Dr. Doan Prior to labs being obtained the patient was started on IV hydration and was given 5 units of regular insulin IV push. The patient will be admitted to the ICU with a diagnosis of DKA. - Lab Data Result diagrams: 06/20/17 14:10 06/20/17 14:10 Lab Results 06/20/17 06/20/17 06/20/17 Range/Units 14:05 14:10 14:10 WBC (3.8-10.6) k/uL RBC (4.30-5.90) m/uL Hgb (13.0-17.5) gm/dL Hct (39.0-53.0) % MCV (80.0-100.0) fL MCH (25.0-35.0) pg MCHC (31.0-37.0) g/dL RDW (11.5-15.5) % Plt Count (150-450) k/uL Neutrophils % % Lymphocytes % % Monocytes % % Eosinophils % % Basophils % % Neutrophils # (1.3-7.7) k/uL Lymphocytes # (1.0-4.8) k/uL Monocytes # (0-1.0) k/uL Eosinophils # (0-0.7) k/uL Basophils # (0-0.2) k/uL Hypochromasia Macrocytosis PT (9.0-12.0) sec INR (<1.2) APTT (22.0-30.0) sec Sodium 124 L (137-145) mmol/L Potassium 5.0 (3.5-5.1) mmol/L Chloride 92 L (98-107) mmol/L Carbon Dioxide 20 L (22-30) mmol/L Anion Gap 12 mmol/L BUN 27 H (9-20) mg/dL Creatinine 0.70 (0.66-1.25) mg/dL Est GFR (MDRD) Af Amer >60 (>60 ml/min/1.73 sqM) Est GFR (MDRD) Non-Af >60 (>60 ml/min/1.73 sqM) Glucose 1212 H* (74-99) mg/dL POC Glucose (mg/dL) >600 H (75-99) mg/dL POC Glu Balloon Pilot ID Sherif De Luna Calcium 8.9 (8.4-10.2) mg/dL Total Bilirubin 0.5 (0.2-1.3) mg/dL AST 18 (17-59) U/L ALT 46 (21-72) U/L Alkaline Phosphatase 127 H (38-126) U/L Ammonia <9 (<30) umol/L Total Protein 6.1 L (6.3-8.2) g/dL Albumin 3.2 L (3.5-5.0) g/dL Urine Color Urine Appearance (Clear) Urine pH (5.0-8.0) Ur Specific [place] (1.001-1.035) Urine Protein (Negative) Urine Glucose (UA) (Negative) Urine Ketones (Negative) Urine Blood (Negative) Urine Nitrite (Negative) Urine Bilirubin (Negative) Urine Urobilinogen (<2.0) mg/dL Ur Leukocyte Esterase (Negative) Urine RBC (0-5) /hpf Urine WBC (0-5) /hpf Urine WBC Clumps (None) /hpf Urine Yeast (Budding) (None) /hpf Acetone, Qual Positive (Negative) 06/20/17 06/20/17 06/20/17 Range/Units 14:10 14:10 14:20 WBC 4.1 (3.8-10.6) k/uL RBC 3.05 L (4.30-5.90) m/uL Hgb 8.4 L (13.0-17.5) gm/dL Hct 30.0 L (39.0-53.0) % MCV 98.4 (80.0-100.0) fL MCH 27.5 (25.0-35.0) pg MCHC 27.9 L (31.0-37.0) g/dL RDW 15.3 (11.5-15.5) % Plt Count 571 H (150-450) k/uL Neutrophils % 85 % Lymphocytes % 10 % Monocytes % 4 % Eosinophils % 0 % Basophils % 0 % Neutrophils # 3.5 (1.3-7.7) k/uL Lymphocytes # 0.4 L (1.0-4.8) k/uL Monocytes # 0.2 (0-1.0) k/uL Eosinophils # 0.0 (0-0.7) k/uL Basophils # 0.0 (0-0.2) k/uL Hypochromasia Marked Macrocytosis Slight PT 10.4 (9.0-12.0) sec INR 1.0 (<1.2) APTT 22.8 (22.0-30.0) sec Sodium (137-145) mmol/L Potassium (3.5-5.1) mmol/L Chloride (98-107) mmol/L Carbon Dioxide (22-30) mmol/L Anion Gap mmol/L BUN (9-20) mg/dL Creatinine (0.66-1.25) mg/dL Est GFR (MDRD) Af Amer (>60 ml/min/1.73 sqM) Est GFR (MDRD) Non-Af (>60 ml/min/1.73 sqM) Glucose (74-99) mg/dL POC Glucose (mg/dL) (75-99) mg/dL POC Glu Balloon [place] ID Calcium (8.4-10.2) mg/dL Total Bilirubin (0.2-1.3) mg/dL AST (17-59) U/L ALT (21-72) U/L Alkaline Phosphatase (38-126) U/L Ammonia (<30) umol/L Total Protein (6.3-8.2) g/dL Albumin (3.5-5.0) g/dL Urine Color Colorless Urine Appearance Cloudy (Clear) Urine pH 6.5 (5.0-8.0) Ur Specific [place] 1.017 (1.001-1.035) Urine Protein Negative (Negative) Urine Glucose (UA) 4+ H (Negative) Urine Ketones Negative (Negative) Urine Blood Trace H (Negative) Urine Nitrite Negative (Negative) Urine Bilirubin Negative (Negative) Urine Urobilinogen <2.0 (<2.0) mg/dL Ur Leukocyte Esterase Large H (Negative) Urine RBC 2 (0-5) /hpf Urine WBC >182 H (0-5) /hpf Urine WBC Clumps Few H (None) /hpf Urine Yeast (Budding) Few H (None) /hpf Acetone, Qual (Negative) Disposition Clinical Impression: Diabetic ketoacidosis, Urinary tract infection, Decubitus ulcer of ankle, stage 3 Disposition: ADMITTED IP TO THIS [facility] Condition: Serious Referrals: Brent Chong MD [Primary Care Provider] - 1-2 days
[2017-06-20 14:23] LABS: Basophils % (A) 0 %; CH 28.2; CHCM 28.8; Eosinophils % (A) 0 %; HDW 2.73; HGB 8.4 gm/dL (13.0-17.5); Hypochromasia Marked; Luc # (Auto) 0.04; Luc % (Auto) 1; Lymphocytes # (A) 0.4 k/uL (1.0-4.8); Lymphocytes % (A) 10 %; MCH 27.5 pg (25.0-35.0); MCHC 27.9 g/dL (31.0-37.0); MCV 98.4 fL (80.0-100.0); Macrocytosis Slight; Mean Platelet Volume 7.8; Monocytes # (A) 0.2 k/uL (0-1.0); Monocytes % (A) 4 %; Neutrophils # (A) 3.5 k/uL (1.3-7.7); Neutrophils % (A) 85 %; RBC 3.05 m/uL (4.30-5.90); RDW 15.3 % (11.5-15.5); WBC 4.1 k/uL (3.8-10.6); WBC (Perox) 4.29
[2017-06-20 14:33] LABS: Partial Thromboplastin Time 22.8 sec (22.0-30.0); Prothrombin Time 10.4 sec (9.0-12.0)
[2017-06-20 14:34] LABS: ALT 46 U/L (21-72); AST 18 U/L (17-59); Alkaline Phosphatase 127 U/L (38-126); Anion Gap 12 mmol/L; Blood Urea Nitrogen 27 mg/dL (9-20); Calcium 8.9 mg/dL (8.4-10.2); Carbon Dioxide 20 mmol/L (22-30); Chloride 92 mmol/L (98-107); Non-African American GFR(MDRD) >60 (>60 ml/min/1.73 sqM); Sodium 124 mmol/L (137-145); Total Bilirubin 0.5 mg/dL (0.2-1.3); Total Protein 6.1 g/dL (6.3-8.2)
[2017-06-20 14:53] LABS: Appearance,Urine Cloudy (Clear); Bilirubin,Urine Negative (Negative); Glucose,Urine (UA) 4+ (Negative); Ketones,Urine Negative (Negative); Leukocyte Esterase,Urine Large (Negative); Nitrite,Urine Negative (Negative); PH, Urine 6.5 (5.0-8.0); Particle Count 594; Protein,Urine Negative (Negative); RBC,Urine 2 /hpf (0-5); Specific Gravity,Urine 1.017 (1.001-1.035); UA Billing (MACRO vs. MICRO) MICRO; Urobilinogen,Urine <2.0 mg/dL (<2.0); WBC,Urine >182 /hpf (0-5)
[2017-06-20 14:55] LABS: Glucose 1212 mg/dL (74-99)
[2017-06-20 15:01] LABS: Creatine Kinase 191 U/L (55-170)
[2017-06-20 15:12] LABS: Troponin I <0.012 ng/mL (0.000-0.034)
--- NOTE | 2017-06-20 15:13 | CT ---
EXAMINATION TYPE: CT brain wo con DATE OF EXAM: 06/20/2017 COMPARISON: Prior head CT 04/21/2017 HISTORY: Patient shows signs of altered mental status. Patient uncooperative at time of exam. CT DLP: 776.2 mGycm Automated exposure control for dose reduction was used. FINDINGS: Helical imaging through the brain The calvarium is intact. Paranasal sinuses and mastoid air cells as visualized are normal. Cortical a trophy is stable. Cerebral vascular calcifications are present. There is no hemorrhage or hydrocephal us. IMPRESSION: NO ACUTE ABNORMALITY
--- NOTE | 2017-06-20 15:16 | XR ---
EXAMINATION TYPE: XR chest 2V DATE OF EXAM: 06/20/2017 COMPARISON: Prior chest x-ray 05/21/2017 HISTORY: Altered mental status TECHNIQUE: Frontal and lateral views of the chest are obtained on 3 images. FINDINGS: There is no focal air space opacity, pleural effusion, or pneumothorax seen. Calcified gra nuloma again seen in the left mid chest. Patient is rotated. Apical pleural thickening is stable. Int erstitium is mildly increased. Emphysematous changes are suspected. The cardiac silhouette size is wi thin normal limits. Old right-sided rib fractures show healing. The osseous structures are intact. IMPRESSION: No acute cardiopulmonary process.
[2017-06-20 15:19] LABS: Creatine Kinase MB 6.1 ng/mL (0.0-2.4)
[2017-06-20] MEDS ORDERED: LEVOFLOXACIN 500MG-D5W PMX 500 MG in DEXTROSE/WATER 1 100ML.BAG IVPB STA (15:20)
[2017-06-20] MEDS: INSULIN REGULAR 100 UNIT in SODIUM CHLORIDE 0.9% 100 ML IV ONE ×2 (15:27→20:35)
[2017-06-20] MEDS ORDERED: CALCIUM CARBONATE 500 MG CHEWABLE PO PRN (15:29)
[2017-06-20] MEDS: SODIUM CHLORIDE 0.9% 1,000 ML IV SCH ×2 (15:55→18:49)
[2017-06-20 16:12] LABS: Glucose,Whole Blood >600 mg/dL (75-99)
[2017-06-20 17:34] LABS: Glucose,Whole Blood >600 mg/dL (75-99)
[2017-06-20 18:45] LABS: Glucose,Whole Blood 532 mg/dL (75-99)
[2017-06-20 18:53] LABS: Phosphorous 3.5 mg/dL (2.5-4.5); Potassium 3.7 mmol/L (3.5-5.1)
[2017-06-20] MEDS: GABAPENTIN 300 MG CAP PO SCH ×2 (19:19→20:28)
[2017-06-20] MEDS: CARVEDILOL 6.25 MG TAB PO SCH (19:19)
[2017-06-20] MEDS: hydrALAZINE HCL 50 MG TAB PO SCH ×2 (19:20→20:28)
[2017-06-20 19:26] LABS: Glucose,Whole Blood 480 mg/dL (75-99)
[2017-06-20] MEDS ORDERED: Potassium Replacement Protocol 1 EACH MISC MISCELLANE PRN (19:48)
[2017-06-20] MEDS ORDERED: POTASSIUM CHLORIDE ER 20 MEQ TAB.ER PO ONE (20:00)
[2017-06-20 20:23] LABS: Glucose,Whole Blood 379 mg/dL (75-99)
[2017-06-20] MEDS: ATORVASTATIN 40 MG TAB PO SCH (20:28)
[2017-06-20] MEDS: DULoxetine HCL 30 MG CAPSULE.DR PO SCH (20:28)
[2017-06-20] MEDS: INSULIN REGULAR 100 UNIT in SODIUM CHLORIDE 0.9% 100 ML IV SCH (20:39)
[2017-06-20 21:04] LABS: Glucose,Whole Blood 351 mg/dL (75-99)
[2017-06-20 22:06] LABS: Glucose,Whole Blood 234 mg/dL (75-99)
[2017-06-20] MEDS: D5-0.45% NACL WITH KCL 20MEQ/L 1,000 ML IV SCH (22:07)
[2017-06-20 23:03] LABS: Glucose,Whole Blood 228 mg/dL (75-99)
[2017-06-20 23:25] LABS: Phosphorous 2.9 mg/dL (2.5-4.5); Potassium 3.8 mmol/L (3.5-5.1)
[2017-06-21 00:25] LABS: Glucose,Whole Blood 161 mg/dL (75-99)
[2017-06-21 00:47] LABS: Basophils % (A) 0 %; CH 28.7; CHCM 31.6; Eosinophils # (A) 0.1 k/uL (0-0.7); Eosinophils % (A) 2 %; HCT 23.8 % (39.0-53.0); HDW 2.79; HGB 7.4 gm/dL (13.0-17.5); Hypochromasia Slight; Luc # (Auto) 0.16; Luc % (Auto) 2; Lymphocytes # (A) 2.2 k/uL (1.0-4.8); Lymphocytes % (A) 32 %; MCH 28.2 pg (25.0-35.0); Mean Platelet Volume 7.8; Monocytes # (A) 0.3 k/uL (0-1.0); Monocytes % (A) 5 %; Neutrophils % (A) 59 %; RBC 2.62 m/uL (4.30-5.90); RDW 15.2 % (11.5-15.5); WBC 6.8 k/uL (3.8-10.6); WBC (Perox) 6.59
[2017-06-21 01:01] LABS: MCV 90.9 fL (80.0-100.0)
[2017-06-21 01:04] LABS: Glucose,Whole Blood 129 mg/dL (75-99)
[2017-06-21 01:05] LABS: Anion Gap 8 mmol/L; Blood Urea Nitrogen 20 mg/dL (9-20); Calcium 8.4 mg/dL (8.4-10.2); Carbon Dioxide 22 mmol/L (22-30); Chloride 109 mmol/L (98-107); Glucose 144 mg/dL (74-99); Non-African American GFR(MDRD) >60 (>60 ml/min/1.73 sqM); Potassium 4.3 mmol/L (3.5-5.1); Sodium 139 mmol/L (137-145)
[2017-06-21 01:23] LABS: Manual Review Performed
[2017-06-21] MEDS: INSULIN REGULAR 100 UNIT in SODIUM CHLORIDE 0.9% 100 ML IV SCH ×2 (02:00→08:05)
[2017-06-21 02:08] LABS: Glucose,Whole Blood 89 mg/dL (75-99)
[2017-06-21 02:34] LABS: Glucose,Whole Blood 79 mg/dL (75-99)
[2017-06-21 03:16] LABS: Glucose,Whole Blood 148 mg/dL (75-99)
[2017-06-21 04:25] LABS: Glucose,Whole Blood 134 mg/dL (75-99)
[2017-06-21 05:20] LABS: Glucose,Whole Blood 153 mg/dL (75-99)
[2017-06-21] MEDS: D5-0.45% NACL WITH KCL 20MEQ/L 1,000 ML IV SCH ×3 (05:22→20:24)
[2017-06-21 06:10] LABS: Glucose,Whole Blood 167 mg/dL (75-99)
[2017-06-21 06:38] LABS: Basophils % (A) 0 %; CH 27.9; CHCM 31.5; Eosinophils # (A) 0.3 k/uL (0-0.7); Eosinophils % (A) 4 %; HCT 25.7 % (39.0-53.0); HDW 2.89; HGB 8.2 gm/dL (13.0-17.5); Hypochromasia Slight; Luc # (Auto) 0.12; Luc % (Auto) 2; Lymphocytes # (A) 1.5 k/uL (1.0-4.8); Lymphocytes % (A) 19 %; MCH 28.5 pg (25.0-35.0); MCHC 32.1 g/dL (31.0-37.0); MCV 88.9 fL (80.0-100.0); Mean Platelet Volume 7.8; Monocytes # (A) 0.4 k/uL (0-1.0); Monocytes % (A) 5 %; Neutrophils # (A) 5.5 k/uL (1.3-7.7); Neutrophils % (A) 70 %; RBC 2.89 m/uL (4.30-5.90); WBC 7.9 k/uL (3.8-10.6); WBC (Perox) 7.83
[2017-06-21] MEDS ORDERED: SODIUM CHLORIDE 0.9% 1,000 ML IV ONE (06:51)
[2017-06-21 07:07] LABS: Glucose,Whole Blood 212 mg/dL (75-99)
[2017-06-21 07:08] LABS: ALT 36 U/L (21-72); AST 22 U/L (17-59); Alkaline Phosphatase 77 U/L (38-126); Anion Gap 7 mmol/L; Calcium 8.4 mg/dL (8.4-10.2); Carbon Dioxide 20 mmol/L (22-30); Chloride 110 mmol/L (98-107); Glucose 154 mg/dL (74-99); Magnesium 1.9 mg/dL (1.6-2.3); Non-African American GFR(MDRD) >60 (>60 ml/min/1.73 sqM); Phosphorous 2.4 mg/dL (2.5-4.5); Potassium 4.8 mmol/L (3.5-5.1); Sodium 137 mmol/L (137-145); Total Bilirubin 0.3 mg/dL (0.2-1.3); Total Protein 5.4 g/dL (6.3-8.2)
[2017-06-21 07:19] LABS: Blood Urea Nitrogen 18 mg/dL (9-20)
[2017-06-21] MEDS ORDERED: Phosphorus Replacement Protoco 1 EACH MISC MISCELLANE PRN (07:46)
[2017-06-21] MEDS ORDERED: Magnesium Replacement Protocol 1 EACH MISC MISCELLANE PRN (07:48)
[2017-06-21] MEDS ORDERED: SODIUM PHOSPHATE 10 MMOL in SODIUM CHLORIDE 0.9% 250 ML IVPB ONE (08:00)
[2017-06-21 08:05] LABS: Glucose,Whole Blood 143 mg/dL (75-99)
--- NOTE | 2017-06-21 08:57 | P.CNPUL ---
History of Present Illness Consult date: 06/21/17 Reason for consult: other Chief complaint: Diabetic ketoacidosis, hyperglycemia History of present illness: Consult dated 06/21/2017 This is a 56-year-old male who apparently was evaluated initially in the emergency room. Brought in by EMS. He apparently fell out of his wheelchair. This is his first visit to the emergency room. Subsequent to that, they will call back because of mental mental status changes. Apparently the neighbor called the EMS for assistance. The patient really was not able to assess answer many questions appropriately. He apparently was hard of hearing. Not having any pain. Not sure why his blood sugars get under control Y developed diabetic ketoacidosis. The patient apparently had a recent admission to this hospital for the same problem. He does have a history of amputations bilaterally above the knee and large decubitus ulcer on his buttock. An infected also may be the explanation. I asked him about compliance and he states he was. His primary is Dr. Chong. Answers managing his blood sugars. He denies drinking. Denies significant other recreational drugs. Does smoke cigarettes. His current home medications include Coreg Neurontin multiple vitamins Cymbalta Humalog Lantus losartan high presently Lipitor Santyl a variety of other medications. Review of Systems A 12 point review of system was difficult to obtain as the patient was very confused when he came in the second time in the emergency department. Really not able give much history. Apparently has what brought him in this wasn't mental status changes. Currently feeling pretty much back to baseline. When I first walked into the room the patient asked me if he could drink something as he was very thirsty and also he wanted to say much to eat. 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, left apical lung lesion, chronic back pain, chronic anemia, gastric ulcer disease , migraine, multiple infections including infections with MRSA, VRE, Pseudomonas multidrug resistant as evident in the wound cultures from the coccyx also wound [facility] [place] [facility], History of Any Multi-Drug Resistant Organisms: MRSA, Other MDRO, VRE Date of last positivie culture/infection: 03/18/17-MRSA; 04/05/17-VRE; 04/21/17- MDRO-PSEUDOMONAS MDRO Source:: wounds Past Surgical History: Adenoidectomy, Appendectomy, Heart Catheterization, Hernia Repair, Orthopedic Surgery, Tonsillectomy Additional Past Surgical History / Comment(s): R BKA, R BKA revision to AKA, L AKA , rt arm picc line -since removed Past Anesthesia/Blood Transfusion Reactions: No Reported Reaction Additional Past Anesthesia/Blood Transfusion Reaction / Comment(s): Pt recently received blood- no reaction Past Psychological History: Depression Additional Psychological History / Comment(s): Pt resides alone at [facility]. medical equipment:wheelchair ( transfers himself) and a glucometer .He does not drive. He uses the bus. no pets,( last admit in april 2017 pt stated was recieving [facility] care nurse 2x/week) Smoking Status: Current every day smoker Past Alcohol Use History: None Reported, Unable to Obtain Additional Past Alcohol Use History / Comment(s): started smoking at age 12(1972 ) smoking 1 ppd. 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 Father Family Medical History: Cancer, Coronary Artery Disease (CAD) Additional Family Medical History / Comment(s): Father of throat cancer at the age of 70yrs. Medications and Allergies Home Medications Medication Instructions Recorded Confirmed Type Carvedilol [Coreg] 6.25 mg PO BID 06/13/14 06/10/17 History Gabapentin [Neurontin] 300 mg PO TID 01/28/16 06/10/17 History Omeprazole 20 mg PO DAILY 06/12/16 06/10/17 History Multivitamins, Thera [Multivitamin 1 tab PO DAILY 10/13/16 06/10/17 History (formulary)] DULoxetine HCL [Cymbalta] 30 mg PO BID 04/06/17 06/10/17 History INSULIN LISPRO (humaLOG) [humaLOG 4 units SQ AC-TID 04/06/17 06/10/17 History (formulary)] Insulin Glargine [Lantus] 0 unit SQ DAILY 04/06/17 06/10/17 History Losartan Potassium 25 mg PO DAILY 04/06/17 06/10/17 History hydrALAZINE HCL [Apresoline] 50 mg PO TID 04/06/17 06/10/17 History Atorvastatin [Lipitor] 40 mg PO HS 05/21/17 06/10/17 History Collagenase [Santyl] 1 applic TOPICAL DAILY 05/21/17 06/10/17 History Allergies Allergy/AdvReac Type Severity Reaction Status Date / Time piperacillin [From Zosyn] Allergy Severe Dyspnea Verified 06/10/17 14:48 tazobactam [From Zosyn] Allergy Severe Dyspnea Verified 06/10/17 14:48 tramadol Allergy Unknown Verified 06/10/17 14:48 fentanyl AdvReac Lightheaded Verified 06/10/17 14:48 ketorolac tromethamine AdvReac Nausea Verified 06/10/17 14:48 [From Toradol] Physical Exam Osteopathic Statement: *. No significant issues noted on an osteopathic structural exam other than those noted in the History and Physical/Consult. Vitals: Vital Signs Temp Pulse Resp BP Pulse Ox 06/21/17 07:36 100 06/21/17 07:00 61 6 L 101/76 100 06/21/17 06:30 62 8 L 94/67 100 06/21/17 06:00 62 5 L 101/70 100 06/21/17 05:30 61 14 114/72 100 06/21/17 05:00 61 6 L 120/73 100 06/21/17 04:30 67 12 109/68 100 06/21/17 04:00 97.5 F L 61 17 96/61 100 06/21/17 03:30 60 10 L 97/61 100 06/21/17 03:00 58 L 13 100/69 100 06/21/17 02:30 57 L 11 L 97/56 98 06/21/17 02:00 57 L 7 L 94/60 100 06/21/17 01:30 57 L 7 L 94/59 100 06/21/17 01:00 57 L 19 101/64 100 06/21/17 00:30 58 L 17 87/59 06/21/17 00:00 119 H 21 92/59 100 06/20/17 23:33 56 L 8 L 81/54 100 06/20/17 23:30 56 L 4 L 81/54 100 06/20/17 23:20 56 L 6 L 83/53 100 06/20/17 23:10 56 L 7 L 83/53 100 06/20/17 23:00 57 L 83/53 80 L 06/20/17 22:50 58 L 98/61 100 06/20/17 22:40 58 L 98/61 100 06/20/17 22:30 59 L 98/61 100 06/20/17 22:20 60 100/61 100 06/20/17 22:10 59 L 100/61 100 06/20/17 22:00 97.8 F 58 L 100/61 06/20/17 21:50 58 L 97/62 100 06/20/17 21:40 58 L 97/62 99 06/20/17 21:30 57 L 97/62 100 06/20/17 21:20 61 106/76 100 06/20/17 21:10 67 106/76 99 06/20/17 21:00 61 106/76 100 06/20/17 20:50 65 97/62 100 06/20/17 20:40 57 L 105/67 100 06/20/17 20:30 64 105/67 100 06/20/17 20:20 74 152/94 100 06/20/17 20:10 64 152/94 99 06/20/17 20:00 64 21 152/94 100 06/20/17 19:50 74 167/92 99 06/20/17 19:40 67 167/92 100 06/20/17 19:30 64 167/92 99 06/20/17 19:20 62 151/86 99 06/20/17 19:10 63 151/86 99 06/20/17 19:03 99 06/20/17 19:00 62 151/86 99 06/20/17 18:50 64 156/87 100 06/20/17 18:40 63 156/87 100 06/20/17 18:30 64 156/87 99 06/20/17 18:20 64 157/90 100 06/20/17 18:10 64 157/90 99 06/20/17 18:00 69 157/90 100 06/20/17 17:50 66 166/98 99 06/20/17 17:40 69 166/98 100 06/20/17 17:30 73 166/98 100 06/20/17 17:20 87 71 L 06/20/17 17:10 81 18 156/87 100 06/20/17 17:00 84 166/98 100 06/20/17 16:50 96 16 99 06/20/17 16:48 97.5 F L 20 06/20/17 16:40 83 100 06/20/17 16:30 82 100 06/20/17 16:26 100 06/20/17 15:59 98.3 F 71 18 134/66 98 06/20/17 15:12 75 18 188/92 99 06/20/17 13:53 98.8 F 84 18 163/119 97 Intake and Output 06/20/17 06/21/17 06/21/17 22:59 06:59 14:59 Intake Total 2893.788 3602.380 2336 Output Total 1035 265 75 Balance 6746.972 8550.000 1075 Intake: IV 150 800 150 D5-0.45% NaCl with KCl 150 800 150 20Meq/l 1,000 ml @ 150 mls/hr IV .Q6H40M [facility] Rx# :[id number] Amount of Fluid Infused ( 1000 ml) Intake, IV Titration 9495.526 4737.000 1000 Amount Insulin Regular 100 unit 113.000 101.000 In Sodium Chloride 0.9% 100 ml @ 0.1 UNITS/KG/HR 5.31 mls/hr IV .Q19H2M [facility] Rx#:[id number] Insulin Regular 100 unit 30.788 In Sodium Chloride 0.9% 100 ml @ 5 UNIT/HR 5.05 mls/hr IV .Q20H [facility] Rx#: [id number] Sodium Chloride 0.9% 1, 1600 000 ml @ 200 mls/hr IV . Q5H [facility] Rx#:[id number] Sodium Chloride 0.9% 1, 1000 000 ml @ 999 mls/hr IV . Q1H1M [facility] Rx#:[id number] Sodium Chloride 0.9% 1, 1000 000 ml @ 999 mls/hr IV . Q1H1M [facility] Rx#:[id number] Output: Urine 1035 265 75 Other: Voiding Method Indwelling Catheter Indwelling Catheter Weight 40.3 kg 41.2 kg No acute distress, oriented 3. HEENT examination is grossly unremarkable. Mixed membranes are dry. Teeth are in poor repair. No oral lesions. Neck supple. Full range of motion. No adenopathy thyromegaly or neck vein distention. Cardiovascular examination reveals regular rhythm rate. S1-S2 normal. No S3- S4 or murmur. No tachycardia. Lungs reveal clear breath sounds. No wheezes or rhonchi. No crackles. Breath sounds are equal. Abdomen soft bowel sounds are heard. No masses or tenderness. Extremities revealed bilateral [id number] amputations. Skin without rash. Neurologic examination is prepared nonfocal. Results - Laboratory Findings CBC and BMP: 06/21/17 06:20 06/21/17 06:20 PT/INR, D-dimer PT 10.4 sec (9.0-12.0) 06/20/17 14:10 INR 1.0 (<1.2) 06/20/17 14:10 Abnormal lab findings: Abnormal Labs 06/20/17 06/20/17 06/20/17 14:05 14:10 14:10 RBC Hgb Hct MCHC Plt Count Lymphocytes # Sodium 124 L Chloride 92 L Carbon Dioxide 20 L BUN 27 H Creatinine Glucose 1212 H* POC Glucose (mg/dL) >600 H Phosphorus Alkaline Phosphatase 127 H Total Creatine Kinase 191 H CK-MB (CK-2) 6.1 H* Total Protein 6.1 L Albumin 3.2 L Urine Glucose (UA) Urine Blood Ur Leukocyte Esterase Urine WBC Urine WBC Clumps Urine Yeast (Budding) 06/20/17 06/20/17 06/20/17 14:10 14:20 16:07 RBC 3.05 L Hgb 8.4 L Hct 30.0 L MCHC 27.9 L Plt Count 571 H Lymphocytes # 0.4 L Sodium Chloride Carbon Dioxide BUN Creatinine Glucose POC Glucose (mg/dL) >600 H Phosphorus Alkaline Phosphatase Total Creatine Kinase CK-MB (CK-2) Total Protein Albumin Urine Glucose (UA) 4+ H Urine Blood Trace H Ur Leukocyte Esterase Large H Urine WBC >182 H Urine WBC Clumps Few H Urine Yeast (Budding) Few H 06/20/17 06/20/17 06/20/17 17:32 18:20 18:44 RBC Hgb Hct MCHC Plt Count Lymphocytes # Sodium 135 L Chloride Carbon Dioxide 20 L BUN Creatinine Glucose POC Glucose (mg/dL) >600 H 532 H Phosphorus Alkaline Phosphatase Total Creatine Kinase CK-MB (CK-2) Total Protein Albumin Urine Glucose (UA) Urine Blood Ur Leukocyte Esterase Urine WBC Urine WBC Clumps Urine Yeast (Budding) 06/20/17 06/20/17 06/20/17 19:24 20:19 21:02 RBC Hgb Hct MCHC Plt Count Lymphocytes # Sodium Chloride Carbon Dioxide BUN Creatinine Glucose POC Glucose (mg/dL) 480 H 379 H 351 H Phosphorus Alkaline Phosphatase Total Creatine Kinase CK-MB (CK-2) Total Protein Albumin Urine Glucose (UA) Urine Blood Ur Leukocyte Esterase Urine WBC Urine WBC Clumps Urine Yeast (Budding) 06/20/17 06/20/17 06/20/17 22:05 22:38 22:58 RBC Hgb Hct MCHC Plt Count Lymphocytes # Sodium Chloride 108 H Carbon Dioxide BUN Creatinine Glucose POC Glucose (mg/dL) 234 H 228 H Phosphorus Alkaline Phosphatase Total Creatine Kinase CK-MB (CK-2) Total Protein Albumin Urine Glucose (UA) Urine Blood Ur Leukocyte Esterase Urine WBC Urine WBC Clumps Urine Yeast (Budding) 06/21/17 06/21/17 06/21/17 00:15 00:30 00:30 RBC 2.62 L Hgb 7.4 L Hct 23.8 L MCHC Plt Count 466 H Lymphocytes # Sodium Chloride 109 H Carbon Dioxide BUN Creatinine 0.50 L Glucose 144 H POC Glucose (mg/dL) 161 H Phosphorus Alkaline Phosphatase Total Creatine Kinase CK-MB (CK-2) Total Protein Albumin Urine Glucose (UA) Urine Blood Ur Leukocyte Esterase Urine WBC Urine WBC Clumps Urine Yeast (Budding) 06/21/17 06/21/17 06/21/17 01:02 03:15 04:23 RBC Hgb Hct MCHC Plt Count Lymphocytes # Sodium Chloride Carbon Dioxide BUN Creatinine Glucose POC Glucose (mg/dL) 129 H 148 H 134 H Phosphorus Alkaline Phosphatase Total Creatine Kinase CK-MB (CK-2) Total Protein Albumin Urine Glucose (UA) Urine Blood Ur Leukocyte Esterase Urine WBC Urine WBC Clumps Urine Yeast (Budding) 06/21/17 06/21/17 06/21/17 05:19 06:08 06:20 RBC 2.89 L Hgb 8.2 L Hct 25.7 L MCHC Plt Count Lymphocytes # Sodium Chloride Carbon Dioxide BUN Creatinine Glucose POC Glucose (mg/dL) 153 H 167 H Phosphorus Alkaline Phosphatase Total Creatine Kinase CK-MB (CK-2) Total Protein Albumin Urine Glucose (UA) Urine Blood Ur Leukocyte Esterase Urine WBC Urine WBC Clumps Urine Yeast (Budding) 06/21/17 06/21/17 06/21/17 06:20 07:03 08:03 RBC Hgb Hct MCHC Plt Count Lymphocytes # Sodium Chloride 110 H Carbon Dioxide 20 L BUN Creatinine 0.50 L Glucose 154 H POC Glucose (mg/dL) 212 H 143 H Phosphorus 2.4 L Alkaline Phosphatase Total Creatine Kinase CK-MB (CK-2) Total Protein 5.4 L Albumin 2.5 L Urine Glucose (UA) Urine Blood Ur Leukocyte Esterase Urine WBC Urine WBC Clumps Urine Yeast (Budding) - Diagnostic Findings Chest x-ray: image reviewed (X-rays medications labs are all reviewed.) Assessment and Plan (1) Decubitus ulcer of ankle, stage 3 Status: Acute (2) Diabetic ketoacidosis Status: Acute (3) Altered mental status Status: Acute (4) Anemia Status: Acute (5) CHF (congestive heart failure) Status: Acute (6) Cellulitis Status: Acute (7) Decubitus ulcer Status: Acute (8) Decubitus ulcer of buttock, stage 3 Status: Acute (9) Delirium due to general medical condition Status: Acute (10) Diabetes mellitus Status: Acute (11) Fall Status: Acute Plan: Plan dated 06/21/2017 The patient's doing reasonably well. I've asked the nurse to go ahead and advance his diet. Should be allowed to drink and eat. We'll DC his insulin drip which is currently running at 2 units per hour. We'll switch him instead to a NovoLog sliding scale before meals and at bedtime. The patient's also on O2 at 2 L. Probably doesn't need it. He is also getting an IV of D5.45 with 20 of KCl at 150 an hour. We'll see if we can transfer him to general medical floor and continued on her order him a diet. We'll also resume his other medications. Prognosis is guarded. We'll continue to follow. X-rays labs and medications are all reviewed. Time with Patient: Greater than 30
--- NOTE | 2017-06-21 09:10 | XR ---
EXAMINATION TYPE: XR chest 1V portable DATE OF EXAM: 06/21/2017 COMPARISON: Prior chest x-ray 06/20/2017 HISTORY: Follow-up, abnormal chest x-ray TECHNIQUE: Single frontal view of the chest is obtained. FINDINGS: Prominent lung volumes suggest underlying COPD. Old rib fractures are noted. There is no p neumothorax or pleural effusion evident. Cardiomediastinal silhouette, pulmonary vascularity and amara not significantly changed in the interval. I question some increased perihilar density. IMPRESSION: COPD. Difficult to exclude perihilar pneumonia. Follow-up recommended.
[2017-06-21 09:12] LABS: Glucose,Whole Blood 124 mg/dL (75-99)
[2017-06-21] MEDS: MAGNESIUM SULFATE-D5W PMX 1 GM in DEXTROSE/WATER 1 100ML.BAG IVPB SCH ×2 (09:12→12:56)
[2017-06-21] MEDS: PANTOPRAZOLE 40 MG TABLET PO SCH (09:13)
[2017-06-21] MEDS: hydrALAZINE HCL 50 MG TAB PO SCH ×3 (09:13→20:14)
[2017-06-21] MEDS: COLLAGENASE 250 UNIT/GM OINTMENT 30 GM TUBE TOPICAL SCH (09:14)
[2017-06-21] MEDS: LOSARTAN 25 MG TAB PO SCH (09:14)
[2017-06-21] MEDS: CARVEDILOL 6.25 MG TAB PO SCH ×2 (09:14→18:29)
[2017-06-21] MEDS: GABAPENTIN 300 MG CAP PO SCH ×3 (09:14→20:14)
[2017-06-21] MEDS: ASPIRIN 81 MG CHEW PO SCH (09:14)
[2017-06-21] MEDS: DULoxetine HCL 30 MG CAPSULE.DR PO SCH ×2 (09:14→20:14)
[2017-06-21] MEDS: INSULIN LISPRO (humaLOG) 300 UNIT/3 ML VIAL SQ SCH ×3 (12:27→20:15)
[2017-06-21] MEDS: MULTIVITAMINS, THERA 1 EACH TAB PO SCH (12:28)
[2017-06-21 12:29] LABS: Glucose,Whole Blood 291 mg/dL (75-99)
--- NOTE | 2017-06-21 13:07 | P.PN ---
Subjective Principal diagnosis: This is a soft 56-year-old male seen on rounds this morning with Dr. Chong in the intensive care unit. Patient was admitted on 06/20/2017 for DKA. Patient was started on an insulin drip upon admission which has been discontinued this morning. Patient denies any shortness of breath or chest pain. Patient states he has been eating and drinking without nausea or vomiting. Oral supplementations have been ordered. Patient denies any pain at this time. Dr. Chong discussed the need for patient to go to an ECF after discharge and the need for a guardian. Social work has been consulted. Initially patient refused to go to extended care facility after discussion patient agreeable if he can go to an ECF that will allow him to go outside to smoke cigarettes. Objective - Vital Signs Vital signs: Vital Signs Temp 96.7 F L 06/21/17 08:00 Pulse 59 L 06/21/17 11:30 Resp 9 L 06/21/17 11:30 BP 93/58 06/21/17 11:30 Pulse Ox 100 06/21/17 11:30 Intake & Output 06/20/17 06/21/17 06/21/17 18:59 06:59 18:59 Intake Total 2015.619 2779.169 2350 Output Total 800 500 175 Balance 3834.439 9944.169 2175 Weight 40.3 kg 41.2 kg 43.4 kg Intake: IV 950 650 D5-0.45% NaCl with KCl 950 650 20Meq/l 1,000 ml @ 150 mls/hr IV .Q6H40M ROSA Rx# :[id number] Amount of Fluid Infused ( 1000 ml) Intake, IV Titration 2149.394 0146.169 1200 Amount Insulin Regular 100 unit 12 202.000 In Sodium Chloride 0.9% 100 ml @ 0.1 UNITS/KG/HR 5.31 mls/hr IV .Q19H2M ROSA Rx#:[id number] Insulin Regular 100 unit 3.619 27.169 In Sodium Chloride 0.9% 100 ml @ 5 UNIT/HR 5.05 mls/hr IV .Q20H ONE Rx#: [id number] Magnesium Sulfate-D5w Pmx 100 1 gm In Dextrose/Water 1 100ml.bag @ 100 mls/hr IVPB Q1H ROSA Rx#: [id number] Sodium Chloride 0.9% 1, 1000 600 000 ml @ 200 mls/hr IV . Q5H ROSA Rx#:[id number] Sodium Chloride 0.9% 1, 1000 000 ml @ 999 mls/hr IV . Q1H1M ONE Rx#:[id number] Sodium Chloride 0.9% 1, 1000 000 ml @ 999 mls/hr IV . Q1H1M ONE Rx#:[id number] Sodium Phosphate 10 mmol 100 In Sodium Chloride 0.9% 250 ml @ 125 mls/hr IVPB ONCE ONE Rx#:[id number] Oral 500 Output: Urine 800 500 175 Other: Voiding Method Indwelling Catheter Indwelling Catheter Indwelling Catheter - Exam GENERAL: Alert and oriented. Appears in no acute distress. Pleasant. RESPIRATORY: Lungs clear bilaterally. No use of accessory muscles. Patient maintaining oxygen saturation greater than 92%. CARDIOVASCULAR: S1 and S2 noted. No murmurs auscultated. No JVD noted. EXTREMITIES: No edema noted. Palpable pedal pulses +2. Patient with bilateral [id number] amputations. ABDOMEN: No distention noted. Abdomen soft and round. Normal active bowel sounds auscultated 4 quadrants. No pain or tenderness noted upon palpation. SKIN: Patient with stage III ulcer to coccyx. Patient also has wounds on right knee stump and posterior aspect of scrotum. - Labs CBC & Chem 7: 06/21/17 06:20 06/21/17 06:20 Labs: Abnormal Lab Results - Last 24 Hours (Table) 06/20/17 06/20/17 06/20/17 Range/Units 14:05 14:10 14:10 RBC (4.30-5.90) m/uL Hgb (13.0-17.5) gm/dL Hct (39.0-53.0) % MCHC (31.0-37.0) g/dL Plt Count (150-450) k/uL Lymphocytes # (1.0-4.8) k/uL Sodium 124 L (137-145) mmol/L Chloride 92 L (98-107) mmol/L Carbon Dioxide 20 L (22-30) mmol/L BUN 27 H (9-20) mg/dL Creatinine (0.66-1.25) mg/dL Glucose 1212 H* (74-99) mg/dL POC Glucose (mg/dL) >600 H (75-99) mg/dL Phosphorus (2.5-4.5) mg/dL Alkaline Phosphatase 127 H (38-126) U/L Total Creatine Kinase 191 H (55-170) U/L CK-MB (CK-2) 6.1 H* (0.0-2.4) ng/mL Total Protein 6.1 L (6.3-8.2) g/dL Albumin 3.2 L (3.5-5.0) g/dL Urine Glucose (UA) (Negative) Urine Blood (Negative) Ur Leukocyte Esterase (Negative) Urine WBC (0-5) /hpf Urine WBC Clumps (None) /hpf Urine Yeast (Budding) (None) /hpf 06/20/17 06/20/17 06/20/17 Range/Units 14:10 14:20 16:07 RBC 3.05 L (4.30-5.90) m/uL Hgb 8.4 L (13.0-17.5) gm/dL Hct 30.0 L (39.0-53.0) % MCHC 27.9 L (31.0-37.0) g/dL Plt Count 571 H (150-450) k/uL Lymphocytes # 0.4 L (1.0-4.8) k/uL Sodium (137-145) mmol/L Chloride (98-107) mmol/L Carbon Dioxide (22-30) mmol/L BUN (9-20) mg/dL Creatinine (0.66-1.25) mg/dL Glucose (74-99) mg/dL POC Glucose (mg/dL) >600 H (75-99) mg/dL Phosphorus (2.5-4.5) mg/dL Alkaline Phosphatase (38-126) U/L Total Creatine Kinase (55-170) U/L CK-MB (CK-2) (0.0-2.4) ng/mL Total Protein (6.3-8.2) g/dL Albumin (3.5-5.0) g/dL Urine Glucose (UA) 4+ H (Negative) Urine Blood Trace H (Negative) Ur Leukocyte Esterase Large H (Negative) Urine WBC >182 H (0-5) /hpf Urine WBC Clumps Few H (None) /hpf Urine Yeast (Budding) Few H (None) /hpf 06/20/17 06/20/17 06/20/17 Range/Units 17:32 18:20 18:44 RBC (4.30-5.90) m/uL Hgb (13.0-17.5) gm/dL Hct (39.0-53.0) % MCHC (31.0-37.0) g/dL Plt Count (150-450) k/uL Lymphocytes # (1.0-4.8) k/uL Sodium 135 L (137-145) mmol/L Chloride (98-107) mmol/L Carbon Dioxide 20 L (22-30) mmol/L BUN (9-20) mg/dL Creatinine (0.66-1.25) mg/dL Glucose (74-99) mg/dL POC Glucose (mg/dL) >600 H 532 H (75-99) mg/dL Phosphorus (2.5-4.5) mg/dL Alkaline Phosphatase (38-126) U/L Total Creatine Kinase (55-170) U/L CK-MB (CK-2) (0.0-2.4) ng/mL Total Protein (6.3-8.2) g/dL Albumin (3.5-5.0) g/dL Urine Glucose (UA) (Negative) Urine Blood (Negative) Ur Leukocyte Esterase (Negative) Urine WBC (0-5) /hpf Urine WBC Clumps (None) /hpf Urine Yeast (Budding) (None) /hpf 06/20/17 06/20/17 06/20/17 Range/Units 19:24 20:19 21:02 RBC (4.30-5.90) m/uL Hgb (13.0-17.5) gm/dL Hct (39.0-53.0) % MCHC (31.0-37.0) g/dL Plt Count (150-450) k/uL Lymphocytes # (1.0-4.8) k/uL Sodium (137-145) mmol/L Chloride (98-107) mmol/L Carbon Dioxide (22-30) mmol/L BUN (9-20) mg/dL Creatinine (0.66-1.25) mg/dL Glucose (74-99) mg/dL POC Glucose (mg/dL) 480 H 379 H 351 H (75-99) mg/dL Phosphorus (2.5-4.5) mg/dL Alkaline Phosphatase (38-126) U/L Total Creatine Kinase (55-170) U/L CK-MB (CK-2) (0.0-2.4) ng/mL Total Protein (6.3-8.2) g/dL Albumin (3.5-5.0) g/dL Urine Glucose (UA) (Negative) Urine Blood (Negative) Ur Leukocyte Esterase (Negative) Urine WBC (0-5) /hpf Urine WBC Clumps (None) /hpf Urine Yeast (Budding) (None) /hpf 06/20/17 06/20/17 06/20/17 Range/Units 22:05 22:38 22:58 RBC (4.30-5.90) m/uL Hgb (13.0-17.5) gm/dL Hct (39.0-53.0) % MCHC (31.0-37.0) g/dL Plt Count (150-450) k/uL Lymphocytes # (1.0-4.8) k/uL Sodium (137-145) mmol/L Chloride 108 H (98-107) mmol/L Carbon Dioxide (22-30) mmol/L BUN (9-20) mg/dL Creatinine (0.66-1.25) mg/dL Glucose (74-99) mg/dL POC Glucose (mg/dL) 234 H 228 H (75-99) mg/dL Phosphorus (2.5-4.5) mg/dL Alkaline Phosphatase (38-126) U/L Total Creatine Kinase (55-170) U/L CK-MB (CK-2) (0.0-2.4) ng/mL Total Protein (6.3-8.2) g/dL Albumin (3.5-5.0) g/dL Urine Glucose (UA) (Negative) Urine Blood (Negative) Ur Leukocyte Esterase (Negative) Urine WBC (0-5) /hpf Urine WBC Clumps (None) /hpf Urine Yeast (Budding) (None) /hpf 06/21/17 06/21/17 06/21/17 Range/Units 00:15 00:30 00:30 RBC 2.62 L (4.30-5.90) m/uL Hgb 7.4 L (13.0-17.5) gm/dL Hct 23.8 L (39.0-53.0) % MCHC (31.0-37.0) g/dL Plt Count 466 H (150-450) k/uL Lymphocytes # (1.0-4.8) k/uL Sodium (137-145) mmol/L Chloride 109 H (98-107) mmol/L Carbon Dioxide (22-30) mmol/L BUN (9-20) mg/dL Creatinine 0.50 L (0.66-1.25) mg/dL Glucose 144 H (74-99) mg/dL POC Glucose (mg/dL) 161 H (75-99) mg/dL Phosphorus (2.5-4.5) mg/dL Alkaline Phosphatase (38-126) U/L Total Creatine Kinase (55-170) U/L CK-MB (CK-2) (0.0-2.4) ng/mL Total Protein (6.3-8.2) g/dL Albumin (3.5-5.0) g/dL Urine Glucose (UA) (Negative) Urine Blood (Negative) Ur Leukocyte Esterase (Negative) Urine WBC (0-5) /hpf Urine WBC Clumps (None) /hpf Urine Yeast (Budding) (None) /hpf 06/21/17 06/21/17 06/21/17 Range/Units 01:02 03:15 04:23 RBC (4.30-5.90) m/uL Hgb (13.0-17.5) gm/dL Hct (39.0-53.0) % MCHC (31.0-37.0) g/dL Plt Count (150-450) k/uL Lymphocytes # (1.0-4.8) k/uL Sodium (137-145) mmol/L Chloride (98-107) mmol/L Carbon Dioxide (22-30) mmol/L BUN (9-20) mg/dL Creatinine (0.66-1.25) mg/dL Glucose (74-99) mg/dL POC Glucose (mg/dL) 129 H 148 H 134 H (75-99) mg/dL Phosphorus (2.5-4.5) mg/dL Alkaline Phosphatase (38-126) U/L Total Creatine Kinase (55-170) U/L CK-MB (CK-2) (0.0-2.4) ng/mL Total Protein (6.3-8.2) g/dL Albumin (3.5-5.0) g/dL Urine Glucose (UA) (Negative) Urine Blood (Negative) Ur Leukocyte Esterase (Negative) Urine WBC (0-5) /hpf Urine WBC Clumps (None) /hpf Urine Yeast (Budding) (None) /hpf 06/21/17 06/21/17 06/21/17 Range/Units 05:19 06:08 06:20 RBC 2.89 L (4.30-5.90) m/uL Hgb 8.2 L (13.0-17.5) gm/dL Hct 25.7 L (39.0-53.0) % MCHC (31.0-37.0) g/dL Plt Count (150-450) k/uL Lymphocytes # (1.0-4.8) k/uL Sodium (137-145) mmol/L Chloride (98-107) mmol/L Carbon Dioxide (22-30) mmol/L BUN (9-20) mg/dL Creatinine (0.66-1.25) mg/dL Glucose (74-99) mg/dL POC Glucose (mg/dL) 153 H 167 H (75-99) mg/dL Phosphorus (2.5-4.5) mg/dL Alkaline Phosphatase (38-126) U/L Total Creatine Kinase (55-170) U/L CK-MB (CK-2) (0.0-2.4) ng/mL Total Protein (6.3-8.2) g/dL Albumin (3.5-5.0) g/dL Urine Glucose (UA) (Negative) Urine Blood (Negative) Ur Leukocyte Esterase (Negative) Urine WBC (0-5) /hpf Urine WBC Clumps (None) /hpf Urine Yeast (Budding) (None) /hpf 06/21/17 06/21/17 06/21/17 Range/Units 06:20 07:03 08:03 RBC (4.30-5.90) m/uL Hgb (13.0-17.5) gm/dL Hct (39.0-53.0) % MCHC (31.0-37.0) g/dL Plt Count (150-450) k/uL Lymphocytes # (1.0-4.8) k/uL Sodium (137-145) mmol/L Chloride 110 H (98-107) mmol/L Carbon Dioxide 20 L (22-30) mmol/L BUN (9-20) mg/dL Creatinine 0.50 L (0.66-1.25) mg/dL Glucose 154 H (74-99) mg/dL POC Glucose (mg/dL) 212 H 143 H (75-99) mg/dL Phosphorus 2.4 L (2.5-4.5) mg/dL Alkaline Phosphatase (38-126) U/L Total Creatine Kinase (55-170) U/L CK-MB (CK-2) (0.0-2.4) ng/mL Total Protein 5.4 L (6.3-8.2) g/dL Albumin 2.5 L (3.5-5.0) g/dL Urine Glucose (UA) (Negative) Urine Blood (Negative) Ur Leukocyte Esterase (Negative) Urine WBC (0-5) /hpf Urine WBC Clumps (None) /hpf Urine Yeast (Budding) (None) /hpf 06/21/17 06/21/17 Range/Units 09:11 12:26 RBC (4.30-5.90) m/uL Hgb (13.0-17.5) gm/dL Hct (39.0-53.0) % MCHC (31.0-37.0) g/dL Plt Count (150-450) k/uL Lymphocytes # (1.0-4.8) k/uL Sodium (137-145) mmol/L Chloride (98-107) mmol/L Carbon Dioxide (22-30) mmol/L BUN (9-20) mg/dL Creatinine (0.66-1.25) mg/dL Glucose (74-99) mg/dL POC Glucose (mg/dL) 124 H 291 H (75-99) mg/dL Phosphorus (2.5-4.5) mg/dL Alkaline Phosphatase (38-126) U/L Total Creatine Kinase (55-170) U/L CK-MB (CK-2) (0.0-2.4) ng/mL Total Protein (6.3-8.2) g/dL Albumin (3.5-5.0) g/dL Urine Glucose (UA) (Negative) Urine Blood (Negative) Ur Leukocyte Esterase (Negative) Urine WBC (0-5) /hpf Urine WBC Clumps (None) /hpf Urine Yeast (Budding) (None) /hpf Microbiology - Last 24 Hours (Table) 06/20/17 14:10 Gram Stain - Preliminary Buttock Wound Culture - Preliminary 06/20/17 14:20 Urine Culture - Preliminary Urine,Voided Assessment and Plan (1) Diabetic ketoacidosis Narrative/Plan: Present on admission Current Visit: Yes Status: Acute (2) Urinary tract infection Narrative/Plan: Present on admission, no evidence of sepsis Current Visit: Yes Status: Acute (3) Decubitus ulcer of buttock, stage 3 Narrative/Plan: Present on admission Current Visit: No Status: Acute (4) Hyperglycemia due to type 2 diabetes mellitus Current Visit: No Status: Acute Plan: Continue to monitor blood sugars and address as appropriate Monitor vital signs and address as appropriate Monitor labs Await further recommendations from social work regarding legal guardian and ECF placement. DVT/GI prophylaxis Consult Dr. Becerra regarding nonhealing decubitus ulcer, per Dr. Chong. Continue IV Levaquin for urinary tract infection. Patient may be transferred out of ICU
[2017-06-21 14:38] LABS: Hemoglobin A1C 14.4 % (4.2-6.1)
--- NOTE | 2017-06-21 14:44 | P.HPIM ---
<She Rainey - Last Filed: 06/21/17 16:07> History of Present Illness H&P Date: 06/21/17 Chief Complaint: Hyperglycemia Subjective 56-year-old male who presented to the emergency room on via EMS. Apparently the day before the patient had fell out of his wheelchair and EMS was called. EMS was called to the patient's house again on 06/20/2017 due to altered mental status. The patient has a history of bilateral [id number] amputations, IV drug abuse, and large a decubitus ulcer to his coccyx. Blood sugar readings in the emergency room were recorded as greater than 600. Patient was diagnosed with diabetic ketoacidosis and admitted to intensive care unit. Patient was started on an insulin drip with every hour capillary blood glucose checks. The patient lives alone. neonatal social worker has been consulted for ECF placement and possible legal guardian. Review of Systems GENERAL: Patient denies fever, or chills. Positive for decreased appetite. RESPIRATORY: Denies dyspnea, cough, sputum production, or hemoptysis. CARDIOVASCULAR: Denies chest pain, pressure, palpitations, claudication, or arrhythmias. GI: Denies abdominal pain, diarrhea, incontinence, heartburn, nausea, constipation, or blood in the stool. : Denies urinary frequency, burning, dysuria, or cloudy urine. Denies blood in the urine. MUSCULOSKELETAL: Denies pain or tenderness. Denies cramps, swelling, or decreased range of motion. 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, left apical lung lesion, chronic back pain, chronic anemia, gastric ulcer disease , migraine, multiple infections including infections with MRSA, VRE, Pseudomonas multidrug resistant as evident in the wound cultures from the coccyx also [facility], History of Any Multi-Drug Resistant Organisms: MRSA, Other MDRO, VRE Date of last positivie culture/infection: 03/18/17-MRSA; 04/05/17-VRE; 04/21/17- MDRO-PSEUDOMONAS MDRO Source:: wounds Past Surgical History: Adenoidectomy, Appendectomy, Heart Catheterization, Hernia Repair, Orthopedic Surgery, Tonsillectomy Additional Past Surgical History / Comment(s): R GISSELA, R BKA revision to Storm JENKINS , rt arm picc line -since removed Past Anesthesia/Blood Transfusion Reactions: No Reported Reaction Additional Past Anesthesia/Blood Transfusion Reaction / Comment(s): Pt recently received blood- no reaction Past Psychological History: Depression Additional Psychological History / Comment(s): Pt resides alone at [facility]. medical equipment:wheelchair ( transfers himself) and a glucometer .He does not drive. He uses the bus. no pets,( last admit in april 2017 pt stated was recieving [facility] care nurse 2x/week) Smoking Status: Current every day smoker Past Alcohol Use History: None Reported, Unable to Obtain Additional Past Alcohol Use History / Comment(s): started smoking at age 12(1971 ) smoking 1 ppd. 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 Father Family Medical History: Cancer, Coronary Artery Disease (CAD) Additional Family Medical History / Comment(s): Father of throat cancer at the age of 70yrs. Medications and Allergies Home Medications Medication Instructions Recorded Confirmed Type Carvedilol [Coreg] 6.25 mg PO BID 06/13/14 06/21/17 History Omeprazole 20 mg PO DAILY 06/12/16 06/21/17 History INSULIN LISPRO (humaLOG) [humaLOG 8 units SQ AC-TID 04/06/17 06/21/17 History (formulary)] Insulin Glargine [Lantus] 38 unit SQ DAILY 04/06/17 06/21/17 History Losartan Potassium 25 mg PO DAILY 04/06/17 06/21/17 History hydrALAZINE HCL [Apresoline] 50 mg PO TID 04/06/17 06/21/17 History QUEtiapine [SEROquel] 200 mg PO HS 06/21/17 06/21/17 History Allergies Allergy/AdvReac Type Severity Reaction Status Date / Time piperacillin [From Zosyn] Allergy Severe Dyspnea Verified 06/21/17 09:22 tazobactam [From Zosyn] Allergy Severe Dyspnea Verified 06/21/17 09:22 tramadol Allergy Unknown Verified 06/21/17 09:22 fentanyl AdvReac Lightheaded Verified 06/21/17 09:22 ketorolac tromethamine AdvReac Nausea Verified 06/21/17 09:22 [From Toradol] Physical Exam Vitals: Vital Signs Temp Pulse Resp BP Pulse Ox 06/21/17 13:30 67 6 L 100/56 84 L 06/21/17 13:00 64 15 107/65 99 06/21/17 12:30 64 9 L 102/65 89 L 06/21/17 12:00 60 7 L 102/60 100 06/21/17 11:30 59 L 9 L 93/58 100 06/21/17 11:00 56 L 9 L 88/57 91 L 06/21/17 10:30 54 L 8 L 88/59 93 L 06/21/17 10:00 59 L 14 100/62 92 L 06/21/17 09:30 57 L 6 L 115/68 100 06/21/17 09:00 59 L 17 113/68 100 06/21/17 08:30 59 L 13 113/69 100 06/21/17 08:00 96.7 F L 60 6 L 114/74 100 06/21/17 07:36 100 06/21/17 07:30 61 9 L 110/69 100 06/21/17 07:00 61 6 L 101/76 100 06/21/17 06:30 62 8 L 94/67 100 06/21/17 06:00 62 5 L 101/70 100 06/21/17 05:30 61 14 114/72 100 06/21/17 05:00 61 6 L 120/73 100 06/21/17 04:30 67 12 109/68 100 06/21/17 04:00 97.5 F L 61 17 96/61 100 06/21/17 03:30 60 10 L 97/61 100 06/21/17 03:00 58 L 13 100/69 100 06/21/17 02:30 57 L 11 L 97/56 98 06/21/17 02:00 57 L 7 L 94/60 100 06/21/17 01:30 57 L 7 L 94/59 100 06/21/17 01:00 57 L 19 101/64 100 06/21/17 00:30 58 L 17 87/59 06/21/17 00:00 119 H 21 92/59 100 06/20/17 23:33 56 L 8 L 81/54 100 06/20/17 23:30 56 L 4 L 81/54 100 06/20/17 23:20 56 L 6 L 83/53 100 06/20/17 23:10 56 L 7 L 83/53 100 06/20/17 23:00 57 L 83/53 80 L 06/20/17 22:50 58 L 98/61 100 06/20/17 22:40 58 L 98/61 100 06/20/17 22:30 59 L 98/61 100 06/20/17 22:20 60 100/61 100 06/20/17 22:10 59 L 100/61 100 06/20/17 22:00 97.8 F 58 L 100/61 06/20/17 21:50 58 L 97/62 100 06/20/17 21:40 58 L 97/62 99 06/20/17 21:30 57 L 97/62 100 06/20/17 21:20 61 106/76 100 06/20/17 21:10 67 106/76 99 06/20/17 21:00 61 106/76 100 06/20/17 20:50 65 97/62 100 06/20/17 20:40 57 L 105/67 100 06/20/17 20:30 64 105/67 100 06/20/17 20:20 74 152/94 100 06/20/17 20:10 64 152/94 99 06/20/17 20:00 64 21 152/94 100 06/20/17 19:50 74 167/92 99 06/20/17 19:40 67 167/92 100 06/20/17 19:30 64 167/92 99 06/20/17 19:20 62 151/86 99 06/20/17 19:10 63 151/86 99 06/20/17 19:03 99 06/20/17 19:00 62 151/86 99 06/20/17 18:50 64 156/87 100 06/20/17 18:40 63 156/87 100 06/20/17 18:30 64 156/87 99 06/20/17 18:20 64 157/90 100 06/20/17 18:10 64 157/90 99 06/20/17 18:00 69 157/90 100 06/20/17 17:50 66 166/98 99 06/20/17 17:40 69 166/98 100 06/20/17 17:30 73 166/98 100 06/20/17 17:20 87 71 L 06/20/17 17:10 81 18 156/87 100 06/20/17 17:00 84 166/98 100 06/20/17 16:50 96 16 99 06/20/17 16:48 97.5 F L 20 06/20/17 16:40 83 100 06/20/17 16:30 82 100 06/20/17 16:26 100 06/20/17 15:59 98.3 F 71 18 134/66 98 06/20/17 15:12 75 18 188/92 99 Intake and Output 06/20/17 06/21/17 06/21/17 22:59 06:59 14:59 Intake Total 2893.788 6499.396 5682 Output Total 1035 265 280 Balance 7474.996 9241.000 3070 Intake: IV 150 800 750 D5-0.45% NaCl with KCl 150 800 750 20Meq/l 1,000 ml @ 150 mls/hr IV .Q6H40M [facility] Rx# :[id number] Amount of Fluid Infused ( 1000 ml) Intake, IV Titration 3213.882 9903.000 1200 Amount Insulin Regular 100 unit 113.000 101.000 In Sodium Chloride 0.9% 100 ml @ 0.1 UNITS/KG/HR 5.31 mls/hr IV .Q19H2M [facility] Rx#:[id number] Insulin Regular 100 unit 30.788 In Sodium Chloride 0.9% 100 ml @ 5 UNIT/HR 5.05 mls/hr IV .Q20H [facility] Rx#: [id number] Magnesium Sulfate-D5w Pmx 100 1 gm In Dextrose/Water 1 100ml.bag @ 100 mls/hr IVPB Q1H [facility] Rx#: [id number] Sodium Chloride 0.9% 1, 1600 000 ml @ 200 mls/hr IV . Q5H [facility] Rx#:[id number] Sodium Chloride 0.9% 1, 1000 000 ml @ 999 mls/hr IV . Q1H1M [facility] Rx#:[id number] Sodium Chloride 0.9% 1, 1000 000 ml @ 999 mls/hr IV . Q1H1M [facility] Rx#:[id number] Sodium Phosphate 10 mmol 100 In Sodium Chloride 0.9% 250 ml @ 125 mls/hr IVPB ONCE ONE Rx#:[id number] Oral 1400 Output: Urine 1035 265 280 Other: Voiding Method Indwelling Catheter Indwelling Catheter Indwelling Catheter Weight 40.3 kg 41.2 kg 43.4 kg Patient Weight 06/22/17 06:59 Weight 43.4 kg GENERAL: Alert and oriented. Appears in no acute distress. Pleasant. RESPIRATORY: Lungs clear bilaterally. No use of accessory muscles. Patient maintaining oxygen saturation greater than 92%. CARDIOVASCULAR: S1 and S2 noted. No murmurs auscultated. No JVD noted. EXTREMITIES: No edema noted. Palpable pedal pulses +2. Patient with bilateral fbyhg-fur-[id number] amputations. ABDOMEN: No distention noted. Abdomen soft and round. Normal active bowel sounds auscultated 4 quadrants. No pain or tenderness noted upon palpation. SKIN: Patient with stage III ulcer to coccyx. Patient also has wounds on right knee stump and posterior aspect of scrotum. Results CBC & Chem 7: 06/21/17 06:20 06/21/17 06:20 Labs: Abnormal Lab Results - Last 24 Hours (Table) 06/20/17 06/20/17 06/20/17 Range/Units 14:05 14:10 14:10 RBC (4.30-5.90) m/uL Hgb (13.0-17.5) gm/dL Hct (39.0-53.0) % MCHC (31.0-37.0) g/dL Plt Count (150-450) k/uL Lymphocytes # (1.0-4.8) k/uL Sodium 124 L (137-145) mmol/L Chloride 92 L (98-107) mmol/L Carbon Dioxide 20 L (22-30) mmol/L BUN 27 H (9-20) mg/dL Creatinine (0.66-1.25) mg/dL Glucose 1212 H* (74-99) mg/dL POC Glucose (mg/dL) >600 H (75-99) mg/dL Phosphorus (2.5-4.5) mg/dL Alkaline Phosphatase 127 H (38-126) U/L Total Creatine Kinase 191 H (55-170) U/L CK-MB (CK-2) 6.1 H* (0.0-2.4) ng/mL Total Protein 6.1 L (6.3-8.2) g/dL Albumin 3.2 L (3.5-5.0) g/dL Urine Glucose (UA) (Negative) Urine Blood (Negative) Ur Leukocyte Esterase (Negative) Urine WBC (0-5) /hpf Urine WBC Clumps (None) /hpf Urine Yeast (Budding) (None) /hpf 06/20/17 06/20/17 06/20/17 Range/Units 14:10 14:20 16:07 RBC 3.05 L (4.30-5.90) m/uL Hgb 8.4 L (13.0-17.5) gm/dL Hct 30.0 L (39.0-53.0) % MCHC 27.9 L (31.0-37.0) g/dL Plt Count 571 H (150-450) k/uL Lymphocytes # 0.4 L (1.0-4.8) k/uL Sodium (137-145) mmol/L Chloride (98-107) mmol/L Carbon Dioxide (22-30) mmol/L BUN (9-20) mg/dL Creatinine (0.66-1.25) mg/dL Glucose (74-99) mg/dL POC Glucose (mg/dL) >600 H (75-99) mg/dL Phosphorus (2.5-4.5) mg/dL Alkaline Phosphatase (38-126) U/L Total Creatine Kinase (55-170) U/L CK-MB (CK-2) (0.0-2.4) ng/mL Total Protein (6.3-8.2) g/dL Albumin (3.5-5.0) g/dL Urine Glucose (UA) 4+ H (Negative) Urine Blood Trace H (Negative) Ur Leukocyte Esterase Large H (Negative) Urine WBC >182 H (0-5) /hpf Urine WBC Clumps Few H (None) /hpf Urine Yeast (Budding) Few H (None) /hpf 06/20/17 06/20/17 06/20/17 Range/Units 17:32 18:20 18:44 RBC (4.30-5.90) m/uL Hgb (13.0-17.5) gm/dL Hct (39.0-53.0) % MCHC (31.0-37.0) g/dL Plt Count (150-450) k/uL Lymphocytes # (1.0-4.8) k/uL Sodium 135 L (137-145) mmol/L Chloride (98-107) mmol/L Carbon Dioxide 20 L (22-30) mmol/L BUN (9-20) mg/dL Creatinine (0.66-1.25) mg/dL Glucose (74-99) mg/dL POC Glucose (mg/dL) >600 H 532 H (75-99) mg/dL Phosphorus (2.5-4.5) mg/dL Alkaline Phosphatase (38-126) U/L Total Creatine Kinase (55-170) U/L CK-MB (CK-2) (0.0-2.4) ng/mL Total Protein (6.3-8.2) g/dL Albumin (3.5-5.0) g/dL Urine Glucose (UA) (Negative) Urine Blood (Negative) Ur Leukocyte Esterase (Negative) Urine WBC (0-5) /hpf Urine WBC Clumps (None) /hpf Urine Yeast (Budding) (None) /hpf 06/20/17 06/20/17 06/20/17 Range/Units 19:24 20:19 21:02 RBC (4.30-5.90) m/uL Hgb (13.0-17.5) gm/dL Hct (39.0-53.0) % MCHC (31.0-37.0) g/dL Plt Count (150-450) k/uL Lymphocytes # (1.0-4.8) k/uL Sodium (137-145) mmol/L Chloride (98-107) mmol/L Carbon Dioxide (22-30) mmol/L BUN (9-20) mg/dL Creatinine (0.66-1.25) mg/dL Glucose (74-99) mg/dL POC Glucose (mg/dL) 480 H 379 H 351 H (75-99) mg/dL Phosphorus (2.5-4.5) mg/dL Alkaline Phosphatase (38-126) U/L Total Creatine Kinase (55-170) U/L CK-MB (CK-2) (0.0-2.4) ng/mL Total Protein (6.3-8.2) g/dL Albumin (3.5-5.0) g/dL Urine Glucose (UA) (Negative) Urine Blood (Negative) Ur Leukocyte Esterase (Negative) Urine WBC (0-5) /hpf Urine WBC Clumps (None) /hpf Urine Yeast (Budding) (None) /hpf 06/20/17 06/20/17 06/20/17 Range/Units 22:05 22:38 22:58 RBC (4.30-5.90) m/uL Hgb (13.0-17.5) gm/dL Hct (39.0-53.0) % MCHC (31.0-37.0) g/dL Plt Count (150-450) k/uL Lymphocytes # (1.0-4.8) k/uL Sodium (137-145) mmol/L Chloride 108 H (98-107) mmol/L Carbon Dioxide (22-30) mmol/L BUN (9-20) mg/dL Creatinine (0.66-1.25) mg/dL Glucose (74-99) mg/dL POC Glucose (mg/dL) 234 H 228 H (75-99) mg/dL Phosphorus (2.5-4.5) mg/dL Alkaline Phosphatase (38-126) U/L Total Creatine Kinase (55-170) U/L CK-MB (CK-2) (0.0-2.4) ng/mL Total Protein (6.3-8.2) g/dL Albumin (3.5-5.0) g/dL Urine Glucose (UA) (Negative) Urine Blood (Negative) Ur Leukocyte Esterase (Negative) Urine WBC (0-5) /hpf Urine WBC Clumps (None) /hpf Urine Yeast (Budding) (None) /hpf 06/21/17 06/21/17 06/21/17 Range/Units 00:15 00:30 00:30 RBC 2.62 L (4.30-5.90) m/uL Hgb 7.4 L (13.0-17.5) gm/dL Hct 23.8 L (39.0-53.0) % MCHC (31.0-37.0) g/dL Plt Count 466 H (150-450) k/uL Lymphocytes # (1.0-4.8) k/uL Sodium (137-145) mmol/L Chloride 109 H (98-107) mmol/L Carbon Dioxide (22-30) mmol/L BUN (9-20) mg/dL Creatinine 0.50 L (0.66-1.25) mg/dL Glucose 144 H (74-99) mg/dL POC Glucose (mg/dL) 161 H (75-99) mg/dL Phosphorus (2.5-4.5) mg/dL Alkaline Phosphatase (38-126) U/L Total Creatine Kinase (55-170) U/L CK-MB (CK-2) (0.0-2.4) ng/mL Total Protein (6.3-8.2) g/dL Albumin (3.5-5.0) g/dL Urine Glucose (UA) (Negative) Urine Blood (Negative) Ur Leukocyte Esterase (Negative) Urine WBC (0-5) /hpf Urine WBC Clumps (None) /hpf Urine Yeast (Budding) (None) /hpf 06/21/17 06/21/17 06/21/17 Range/Units 01:02 03:15 04:23 RBC (4.30-5.90) m/uL Hgb (13.0-17.5) gm/dL Hct (39.0-53.0) % MCHC (31.0-37.0) g/dL Plt Count (150-450) k/uL Lymphocytes # (1.0-4.8) k/uL Sodium (137-145) mmol/L Chloride (98-107) mmol/L Carbon Dioxide (22-30) mmol/L BUN (9-20) mg/dL Creatinine (0.66-1.25) mg/dL Glucose (74-99) mg/dL POC Glucose (mg/dL) 129 H 148 H 134 H (75-99) mg/dL Phosphorus (2.5-4.5) mg/dL Alkaline Phosphatase (38-126) U/L Total Creatine Kinase (55-170) U/L CK-MB (CK-2) (0.0-2.4) ng/mL Total Protein (6.3-8.2) g/dL Albumin (3.5-5.0) g/dL Urine Glucose (UA) (Negative) Urine Blood (Negative) Ur Leukocyte Esterase (Negative) Urine WBC (0-5) /hpf Urine WBC Clumps (None) /hpf Urine Yeast (Budding) (None) /hpf 06/21/17 06/21/17 06/21/17 Range/Units 05:19 06:08 06:20 RBC 2.89 L (4.30-5.90) m/uL Hgb 8.2 L (13.0-17.5) gm/dL Hct 25.7 L (39.0-53.0) % MCHC (31.0-37.0) g/dL Plt Count (150-450) k/uL Lymphocytes # (1.0-4.8) k/uL Sodium (137-145) mmol/L Chloride (98-107) mmol/L Carbon Dioxide (22-30) mmol/L BUN (9-20) mg/dL Creatinine (0.66-1.25) mg/dL Glucose (74-99) mg/dL POC Glucose (mg/dL) 153 H 167 H (75-99) mg/dL Phosphorus (2.5-4.5) mg/dL Alkaline Phosphatase (38-126) U/L Total Creatine Kinase (55-170) U/L CK-MB (CK-2) (0.0-2.4) ng/mL Total Protein (6.3-8.2) g/dL Albumin (3.5-5.0) g/dL Urine Glucose (UA) (Negative) Urine Blood (Negative) Ur Leukocyte Esterase (Negative) Urine WBC (0-5) /hpf Urine WBC Clumps (None) /hpf Urine Yeast (Budding) (None) /hpf 06/21/17 06/21/17 06/21/17 Range/Units 06:20 07:03 08:03 RBC (4.30-5.90) m/uL Hgb (13.0-17.5) gm/dL Hct (39.0-53.0) % MCHC (31.0-37.0) g/dL Plt Count (150-450) k/uL Lymphocytes # (1.0-4.8) k/uL Sodium (137-145) mmol/L Chloride 110 H (98-107) mmol/L Carbon Dioxide 20 L (22-30) mmol/L BUN (9-20) mg/dL Creatinine 0.50 L (0.66-1.25) mg/dL Glucose 154 H (74-99) mg/dL POC Glucose (mg/dL) 212 H 143 H (75-99) mg/dL Phosphorus 2.4 L (2.5-4.5) mg/dL Alkaline Phosphatase (38-126) U/L Total Creatine Kinase (55-170) U/L CK-MB (CK-2) (0.0-2.4) ng/mL Total Protein 5.4 L (6.3-8.2) g/dL Albumin 2.5 L (3.5-5.0) g/dL Urine Glucose (UA) (Negative) Urine Blood (Negative) Ur Leukocyte Esterase (Negative) Urine WBC (0-5) /hpf Urine WBC Clumps (None) /hpf Urine Yeast (Budding) (None) /hpf 06/21/17 06/21/17 Range/Units 09:11 12:26 RBC (4.30-5.90) m/uL Hgb (13.0-17.5) gm/dL Hct (39.0-53.0) % MCHC (31.0-37.0) g/dL Plt Count (150-450) k/uL Lymphocytes # (1.0-4.8) k/uL Sodium (137-145) mmol/L Chloride (98-107) mmol/L Carbon Dioxide (22-30) mmol/L BUN (9-20) mg/dL Creatinine (0.66-1.25) mg/dL Glucose (74-99) mg/dL POC Glucose (mg/dL) 124 H 291 H (75-99) mg/dL Phosphorus (2.5-4.5) mg/dL Alkaline Phosphatase (38-126) U/L Total Creatine Kinase (55-170) U/L CK-MB (CK-2) (0.0-2.4) ng/mL Total Protein (6.3-8.2) g/dL Albumin (3.5-5.0) g/dL Urine Glucose (UA) (Negative) Urine Blood (Negative) Ur Leukocyte Esterase (Negative) Urine WBC (0-5) /hpf Urine WBC Clumps (None) /hpf Urine Yeast (Budding) (None) /hpf Microbiology - Last 24 Hours (Table) 06/20/17 14:10 Gram Stain - Preliminary Buttock Wound Culture - Preliminary 06/20/17 14:20 Urine Culture - Preliminary Urine,Voided Thrombosis Risk Factor Assmnt - Choose All That Apply Each Factor Represents 1 point: Abnormal pulmonary function (COPD) Thrombosis Risk Factor Assessment Total Risk Factor Score: 1 Thrombosis Risk Factor Assessment Level: Low Risk Assessment and Plan (1) Diabetic ketoacidosis Narrative/Plan: Present on admission Status: Acute (2) Urinary tract infection Narrative/Plan: Present on admission, no evidence of sepsis Status: Acute (3) Decubitus ulcer of buttock, stage 3 Narrative/Plan: Present on admission Status: Acute (4) Hyperglycemia due to type 2 diabetes mellitus Status: Chronic Plan: Continue to monitor blood sugars and address as appropriate Monitor vital signs and address as appropriate Monitor labs Await further recommendations from social work regarding legal guardian and ECF placement. DVT/GI prophylaxis Consult Dr. Becerra regarding nonhealing decubitus ulcer, per Dr. Chong. Continue IV Levaquin for urinary tract infection. Patient may be transferred out of ICU The above impression and plan of care have been discussed and directed by signing physician. She Rainey, nurse practitioner, acting as scribe for signing physician. <Brent Chong - Last Filed: 06/22/17 08:56> Physical Exam Vitals: Vital Signs Temp Pulse Resp BP Pulse Ox 06/22/17 07:00 70 9 L 119/79 90 L 06/22/17 06:30 67 11 L 118/75 94 L 06/22/17 06:00 70 13 118/75 88 L 06/22/17 05:30 68 9 L 120/75 98 06/22/17 05:00 71 7 L 131/77 99 06/22/17 04:30 69 8 L 109/71 97 06/22/17 04:00 97.7 F 66 10 L 113/73 100 06/22/17 03:30 67 12 114/74 95 06/22/17 03:00 66 8 L 127/83 99 06/22/17 02:30 66 8 L 110/72 100 06/22/17 02:00 69 8 L 119/74 97 06/22/17 01:30 65 9 L 144/83 100 06/22/17 01:00 62 17 144/80 100 06/22/17 00:30 62 12 126/76 100 06/22/17 00:00 65 8 L 154/90 99 06/21/17 23:30 62 11 L 117/72 100 06/21/17 23:00 98.5 F 63 12 102/68 100 06/21/17 22:30 64 7 L 109/75 100 06/21/17 22:00 65 6 L 103/68 99 06/21/17 21:30 67 10 L 102/67 100 06/21/17 21:00 68 8 L 107/68 95 06/21/17 20:52 69 7 L 145/82 99 06/21/17 20:30 72 11 L 145/82 100 06/21/17 20:00 98.9 F 73 13 106/71 98 06/21/17 19:30 72 20 100/65 88 L 06/21/17 19:00 70 10 L 137/78 98 06/21/17 18:59 98 06/21/17 18:30 65 7 L 140/78 99 06/21/17 18:00 97.3 F L 63 9 L 118/68 98 06/21/17 17:30 64 8 L 116/66 99 06/21/17 17:00 64 8 L 121/71 100 06/21/17 16:30 66 17 136/75 97 06/21/17 16:00 67 13 114/72 98 06/21/17 15:30 81 35 H 95/68 94 L 06/21/17 15:00 72 16 119/76 100 06/21/17 14:30 72 13 97/65 91 L 06/21/17 14:00 97.1 F L 68 13 82/54 100 06/21/17 13:30 67 6 L 100/56 84 L 06/21/17 13:00 64 15 107/65 99 06/21/17 12:30 64 9 L 102/65 89 L 06/21/17 12:00 60 7 L 102/60 100 06/21/17 11:30 59 L 9 L 93/58 100 06/21/17 11:00 56 L 9 L 88/57 91 L 06/21/17 10:30 54 L 8 L 88/59 93 L 06/21/17 10:00 59 L 14 100/62 92 L 06/21/17 09:30 57 L 6 L 115/68 100 06/21/17 09:00 59 L 17 113/68 100 Intake and Output 06/21/17 06/22/17 06/22/17 22:59 06:59 14:59 Intake Total 1495 500 50 Output Total 845 525 45 Balance 650 -25 5 Intake: IV 370 400 50 D5-0.45% NaCl with KCl 370 400 50 20Meq/l 1,000 ml @ 150 mls/hr IV .Q6H40M [facility] Rx# :[id number] Intake, IV Titration 100 100 Amount Meropenem 1 gm In Sodium 100 100 Chloride 0.9% 100 ml @ 100 mls/hr IVPB Q8HR [facility] Rx#:[id number] Oral 1025 Output: Urine 845 525 45 Other: Voiding Method Indwelling Catheter Indwelling Catheter Weight 48 kg Results CBC & Chem 7: 06/22/17 04:28 06/22/17 05:29 Labs: Abnormal Lab Results - Last 24 Hours (Table) 06/21/17 06/21/17 06/21/17 Range/Units 00:30 09:11 12:26 RBC (4.30-5.90) m/uL Hgb (13.0-17.5) gm/dL Hct (39.0-53.0) % MCHC (31.0-37.0) g/dL Plt Count (150-450) k/uL Sodium (137-145) mmol/L Potassium (3.5-5.1) mmol/L Chloride (98-107) mmol/L Carbon Dioxide (22-30) mmol/L Creatinine (0.66-1.25) mg/dL Glucose (74-99) mg/dL POC Glucose (mg/dL) 124 H 291 H (75-99) mg/dL Hemoglobin A1c 14.4 H (4.2-6.1) % Calcium (8.4-10.2) mg/dL Total Protein (6.3-8.2) g/dL Albumin (3.5-5.0) g/dL 06/21/17 06/21/17 06/22/17 Range/Units 18:26 19:41 01:05 RBC (4.30-5.90) m/uL Hgb (13.0-17.5) gm/dL Hct (39.0-53.0) % MCHC (31.0-37.0) g/dL Plt Count (150-450) k/uL Sodium (137-145) mmol/L Potassium (3.5-5.1) mmol/L Chloride (98-107) mmol/L Carbon Dioxide (22-30) mmol/L Creatinine (0.66-1.25) mg/dL Glucose (74-99) mg/dL POC Glucose (mg/dL) 420 H 419 H 219 H (75-99) mg/dL Hemoglobin A1c (4.2-6.1) % Calcium (8.4-10.2) mg/dL Total Protein (6.3-8.2) g/dL Albumin (3.5-5.0) g/dL 06/22/17 06/22/17 Range/Units 04:28 05:29 RBC 3.24 L (4.30-5.90) m/uL Hgb 8.9 L (13.0-17.5) gm/dL Hct 28.9 L (39.0-53.0) % MCHC 30.9 L (31.0-37.0) g/dL Plt Count 565 H (150-450) k/uL Sodium 132 L (137-145) mmol/L Potassium 5.2 H (3.5-5.1) mmol/L Chloride 108 H (98-107) mmol/L Carbon Dioxide 19 L (22-30) mmol/L Creatinine 0.60 L (0.66-1.25) mg/dL Glucose 112 H (74-99) mg/dL POC Glucose (mg/dL) (75-99) mg/dL Hemoglobin A1c (4.2-6.1) % Calcium 8.2 L (8.4-10.2) mg/dL Total Protein 5.1 L (6.3-8.2) g/dL Albumin 2.3 L (3.5-5.0) g/dL Microbiology - Last 24 Hours (Table) 06/20/17 14:10 Gram Stain - Preliminary Buttock Wound Culture - Preliminary Gram Neg Bacilli Presumptive MRSA 06/20/17 14:10 Blood Culture - Preliminary Blood No Growth after 24 hours Assessment and Plan Plan: Tee grade 3 equivelant DM ulcer Right Lower leg and right IScium: continue [facility]
[2017-06-21] MEDS ORDERED: LEVOFLOXACIN 500MG-D5W PMX 500 MG in DEXTROSE/WATER 1 100ML.BAG IVPB SCH (16:00)
--- NOTE | 2017-06-21 16:19 | CDI ---
In responding to this query, please exercise your independent professional judgment. The [facility] Coding Staff and Clinical Documentation Specialists appreciate your assistance in clarifying documentation, maintaining compliance with coding guidelines, accurately documenting patients condition and capturing severity of illness. The fact that a question is asked does not imply that any particular answer is desired or expected. Communication forms are a method of clarifying documentation and are not made part of the Legal Health Record. Thank you in advance for your clarification. Last Revision, September 2015 Suyapa Mata [address] [facility] [place] [address] Documentation Clarification Form Date: 06/21/2017 4:12:00 PM From: Chantal Trujillo RN, CDS Admit Date: 06/20/2017 3:24:00 PM Patient Name: Ambrose Berry Visit Number: [id number] MARCELA Patterson/Dr. Brent Chong 56 year old patient admitted for Diabetic Ketoacidosis. Stage 3 decubitus ulcer on buttock documented per H&P. Patient has bilateral Above knee amputations. Patient history/risk factors: PVD, DM, Bilateral AKA, Hepatitis C, Clinical Indicators: NURSE wound assess: "Right buttock pressure injury 4cm x 6.5cm tunneling 2" Treatment: anti microbial silver foam, ID consult, Definition of Present on Admission (POA): A diagnosis present at the time the order for admission to inpatient status was written. For each diagnosis, documentation must be clear to determine if the condition was present at the time of the patients inpatient admission or developed during the hospital stay. Please clarify in progress notes and discharge summary as to whether the Stage 3 Pressure Ulcer on Buttock was: Y = Yes, the condition was present at the time of the order for inpatient admission. N = No, the condition was not present at the time of the order for inpatient admission. W = Clinically undetermined if the condition was present at the time of the order for inpatient admission. Please continue to document in your progress notes and discharge summary in order to capture severity of illness and risk of mortality. Include clinical findings that support your diagnosis. FYI: Press F11 to launch patient chart. Thank you. OSEI
--- NOTE | 2017-06-21 16:27 | CDI ---
In responding to this query, please exercise your independent professional judgment. The [facility] Coding Staff and Clinical Documentation Specialists appreciate your assistance in clarifying documentation, maintaining compliance with coding guidelines, accurately documenting patients condition and capturing severity of illness. The fact that a question is asked does not imply that any particular answer is desired or expected. Communication forms are a method of clarifying documentation and are not made part of the Legal Health Record. Thank you in advance for your clarification. Last Revision, September 2015 Suyapa Mata [address] [facility] [place] [address] Documentation Clarification Form Date: 06/21/2017 4:19:00 PM From: Chantal Trujillo RN, CDS Admit Date: 06/20/2017 3:24:00 PM Patient Name: Ambrose Berry Visit Number: [id number] MARCELA Patterson/Dr. Brent Chong, 56 year old patient admitted for Diabetic Ketoacidosis. Stage 3 decubitus ulcer on buttock documented per H&P. Patient has bilateral Above knee amputations. History/Risk Factors: DM, Bilateral Above knee amputations, Clinical Indicators: Patients weight is 43.4kg Patients height is 36 inches Calculated BMI is 51.9 Treatments: Dietitian consult, Glucerna TID with meals, In order to capture the severity of condition associated with patient BMI of 51.9, a clinical diagnoses needs to be documented by the physician. Please clarify: Morbid Obese Obese Other Unable to determine Please document in your progress notes and discharge summary in order to capture severity of illness and risk of mortality. Include clinical findings that support your diagnosis. FYI: Press F11 to launch patient chart. Thank you. OSEI
[2017-06-21 18:28] LABS: Glucose,Whole Blood 420 mg/dL (75-99)
[2017-06-21] MEDS ORDERED: INSULIN LISPRO (humaLOG) 300 UNIT/3 ML VIAL SQ ONE ×2 (18:49→20:21)
[2017-06-21 19:56] LABS: Glucose,Whole Blood 419 mg/dL (75-99)
[2017-06-21] MEDS: MEROPENEM 1 GM in SODIUM CHLORIDE 0.9% 100 ML IVPB SCH (20:09)
[2017-06-21] MEDS: ATORVASTATIN 40 MG TAB PO SCH (20:14)
[2017-06-21] MEDS: INSULIN GLARGINE 100 UNIT/ML 10 ML VIAL SQ SCH (21:10)
--- NOTE | 2017-06-21 23:06 | P.CONS ---
History of Present Illness - Reason for Consult Consult date: 06/21/17 - Chief Complaint dka - History of Present Illness 56-year-old male who has a long-standing history of medical noncompliance presents to emergency center not feeling well. Deidre Singer change in his status. Became very weak. At presentation was found to again have evidence of diabetic ketoacidosis with a blood sugar of 1200. The patient was admitted to the intensive care unit and with resuscitation is improving. At this time is denying new fevers chills or rigors or sweats but is certainly very ill and weak at this time. Has multiple large skin pressure ulcerations which will be addressed at this time. Review of Systems 56-year-old male continues to feel very poorly. Has ongoing weakness. HEENT:Denies headache or acute visual change. Denies sinus or mouth discomforts. Denies neck stiffness or pain. Denies significant oral cavity pain. Denies difficulty on swallowing. Lungs: Denies significant shortness of breath, cough, sputum production, or hemoptysis. Cardiovascular: Denies significant shortness of breath, chest pain, chest wall pain, orthopnea, dyspnea on exertion, syncope Gastrointestinal:Denies nausea, vomiting, diarrhea, constipation, hematemesis, melena, hematochezia. No no significant change of bowel habit noticed. Musculoskeletal: denies significant myalgias or arthralgias. No new joint swelling. Denies new back pain. 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, left apical lung lesion, chronic back pain, chronic anemia, gastric ulcer disease , migraine, multiple infections including infections with MRSA, VRE, Pseudomonas multidrug resistant as evident in the wound cultures from the coccyx also wound rt [facility]for [facility], ed[facility], History of Any Multi-Drug Resistant Organisms: MRSA, Other MDRO, VRE Year Discovered:: 03/18/17-MRSA; 04/05/17-VRE; 04/21/1786-UUVY-[id number] MDRO Source:: wounds Past Surgical History: Adenoidectomy, Appendectomy, Heart Catheterization, Hernia Repair, Orthopedic Surgery, Tonsillectomy Additional Past Surgical History / Comment(s): R GISSELA, R BKA revision to Storm JENKINS , rt arm picc line -since removed Past Anesthesia/Blood Transfusion Reactions: No Reported Reaction Additional Past Anesthesia/Blood Transfusion Reaction / Comm: Pt recently received blood- no reaction Past Psychological History: Depression Additional Psychological History / Comment(s): Pt resides alone at [facility]. medical equipment:wheelchair ( transfers himself) and a glucometer .He does not drive. He uses the bus. no pets,( last admit in april 2017 pt stated was recieving [facility] care nurse 2x/week) Smoking Status: Current every day smoker Past Alcohol Use History: None Reported, Unable to Obtain Additional Past Alcohol Use History / Comment(s): started smoking at age 12(1972 ) smoking 1 ppd. 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 Father Family Medical History: Cancer, Coronary Artery Disease (CAD) Additional Family Medical History / Comment(s): Father of throat cancer at the age of 70yrs. Medications and Allergies Home Medications and Allergies Comment(s): Current Medications Aspirin (Aspirin) 81 mg PO DAILY [facility] Last Admin: 06/21/17 09:14 Dose: 81 mg Atorvastatin Calcium (Lipitor) 40 mg PO HS [facility] Last Admin: 06/21/17 20:14 Dose: 40 mg Calcium Carbonate/Glycine (Tums) 500 mg PO TID PRN PRN Reason: Heartburn Carvedilol (Coreg) 6.25 mg PO BID-W/MEALS [facility] Last Admin: 06/21/17 18:29 Dose: 6.25 mg Collagenase (Santyl) 1 applic TOPICAL DAILY [facility] Last Admin: 06/21/17 09:14 Dose: 1 applic Duloxetine HCl (Cymbalta) 30 mg PO BID [facility] Last Admin: 06/21/17 20:14 Dose: 30 mg Gabapentin (Neurontin) 300 mg PO TID [facility] Last Admin: 06/21/17 20:14 Dose: 300 mg Hydralazine HCl (Apresoline) 50 mg PO TID [facility] Last Admin: 06/21/17 20:14 Dose: 50 mg Potassium Chloride/Dextrose/Sod Cl (D5%-1/2ns-Kcl 20 Meq/L Iv Solution) 1,000 mls @ 150 mls/hr IV .Q6H40M [facility] Last Admin: 06/21/17 20:24 Dose: 150 mls/hr Meropenem 1 gm/ Sodium (Chloride) 100 mls @ 100 mls/hr IVPB Q8HR [facility] Last Admin: 06/21/17 20:09 Dose: 100 mls/hr Insulin Glargine (Lantus) 38 unit SQ HS [facility] Last Admin: 06/21/17 21:10 Dose: 38 unit Insulin Human Lispro (Humalog) 0 unit SQ [id number] [facility] PRN Reason: Protocol Last Admin: 06/21/17 20:15 Dose: 8 unit Losartan Potassium (Cozaar) 25 mg PO DAILY [facility] Last Admin: 06/21/17 09:14 Dose: 25 mg Miscellaneous Information (Potassium Per Protocol) 1 each MISCELLANE DAILY PRN ; Protocol PRN Reason: Per Protocol Miscellaneous Information (Phosphorus Per Protocol) 1 each MISCELLANE DAILY PRN ; Protocol PRN Reason: Per Protocol Miscellaneous Information (Magnesium Per Protocol) 1 each MISCELLANE DAILY PRN ; Protocol PRN Reason: Per Protocol Multivitamins (Theragran) 1 each PO 1200 [facility] Last Admin: 06/21/17 12:28 Dose: 1 each Pantoprazole Sodium (Protonix) 40 mg PO AC-BRKFST [facility] Last Admin: 06/21/17 09:13 Dose: 40 mg Home Medications Medication Instructions Recorded Confirmed Type Carvedilol [Coreg] 6.25 mg PO BID 06/13/14 06/21/17 History Omeprazole 20 mg PO DAILY 06/12/16 06/21/17 History INSULIN LISPRO (humaLOG) [humaLOG 8 units SQ AC-TID 04/06/17 06/21/17 History (formulary)] Insulin Glargine [Lantus] 38 unit SQ DAILY 04/06/17 06/21/17 History Losartan Potassium 25 mg PO DAILY 04/06/17 06/21/17 History hydrALAZINE HCL [Apresoline] 50 mg PO TID 04/06/17 06/21/17 History QUEtiapine [SEROquel] 200 mg PO HS 06/21/17 06/21/17 History Allergies Allergy/AdvReac Type Severity Reaction Status Date / Time piperacillin [From Zosyn] Allergy Severe Dyspnea Verified 06/21/17 09:22 tazobactam [From Zosyn] Allergy Severe Dyspnea Verified 06/21/17 09:22 tramadol Allergy Unknown Verified 06/21/17 09:22 fentanyl AdvReac Lightheaded Verified 06/21/17 09:22 ketorolac tromethamine AdvReac Nausea Verified 06/21/17 09:22 [From Toradol] Physical Exam Vitals: Vital Signs Temp Pulse Resp BP Pulse Ox 06/21/17 20:30 72 11 L 145/82 100 06/21/17 20:00 98.9 F 73 13 106/71 98 06/21/17 19:30 72 20 100/65 88 L 06/21/17 19:00 70 10 L 137/78 98 06/21/17 18:59 98 06/21/17 18:30 65 7 L 140/78 99 06/21/17 18:00 97.3 F L 63 9 L 118/68 98 06/21/17 17:30 64 8 L 116/66 99 06/21/17 17:00 64 8 L 121/71 100 06/21/17 16:30 66 17 136/75 97 06/21/17 16:00 67 13 114/72 98 06/21/17 15:30 81 35 H 95/68 94 L 06/21/17 15:00 72 16 119/76 100 06/21/17 14:30 72 13 97/65 91 L 06/21/17 14:00 97.1 F L 68 13 82/54 100 06/21/17 13:30 67 6 L 100/56 84 L 06/21/17 13:00 64 15 107/65 99 06/21/17 12:30 64 9 L 102/65 89 L 06/21/17 12:00 60 7 L 102/60 100 06/21/17 11:30 59 L 9 L 93/58 100 06/21/17 11:00 56 L 9 L 88/57 91 L 08/21/17 10:30 54 L 8 L 88/59 93 L 06/21/17 10:00 59 L 14 100/62 92 L 06/21/17 09:30 57 L 6 L 115/68 100 06/21/17 09:00 59 L 17 113/68 100 06/21/17 08:30 59 L 13 113/69 100 06/21/17 08:00 96.7 F L 60 6 L 114/74 100 06/21/17 07:36 100 06/21/17 07:30 61 9 L 110/69 100 06/21/17 07:00 61 6 L 101/76 100 06/21/17 06:30 62 8 L 94/67 100 06/21/17 06:00 62 5 L 101/70 100 06/21/17 05:30 61 14 114/72 100 06/21/17 05:00 61 6 L 120/73 100 06/21/17 04:30 67 12 109/68 100 06/21/17 04:00 97.5 F L 61 17 96/61 100 06/21/17 03:30 60 10 L 97/61 100 06/21/17 03:00 58 L 13 100/69 100 06/21/17 02:30 57 L 11 L 97/56 98 06/21/17 02:00 57 L 7 L 94/60 100 06/21/17 01:30 57 L 7 L 94/59 100 06/21/17 01:00 57 L 19 101/64 100 06/21/17 00:30 58 L 17 87/59 06/21/17 00:00 119 H 21 92/59 100 06/20/17 23:33 56 L 8 L 81/54 100 06/20/17 23:30 56 L 4 L 81/54 100 06/20/17 23:20 56 L 6 L 83/53 100 06/20/17 23:10 56 L 7 L 83/53 100 06/20/17 23:00 57 L 83/53 80 L Intake and Output 06/21/17 06/21/17 06/21/17 06:59 14:59 22:59 Intake Total 1328.903 4512 1320 Output Total 265 320 670 Balance 1448.371 3936 650 Intake: IV 800 800 270 D5-0.45% NaCl with KCl 800 800 270 20Meq/l 1,000 ml @ 150 mls/hr IV .Q6H40M [facility] Rx# :[id number] Intake, IV Titration 7215.896 4162 100 Amount Insulin Regular 100 unit 101.000 In Sodium Chloride 0.9% 100 ml @ 0.1 UNITS/KG/HR 5.31 mls/hr IV .Q19H2M [facility] Rx#:[id number] Magnesium Sulfate-D5w Pmx 200 1 gm In Dextrose/Water 1 100ml.bag @ 100 mls/hr IVPB Q1H [facility] Rx#: [id number] Meropenem 1 gm In Sodium 100 Chloride 0.9% 100 ml @ 100 mls/hr IVPB Q8HR [facility] Rx#:[id number] Sodium Chloride 0.9% 1, 1000 000 ml @ 999 mls/hr IV . Q1H1M [facility] Rx#:[id number] Sodium Chloride 0.9% 1, 1000 000 ml @ 999 mls/hr IV . Q1H1M [facility] Rx#:[id number] Sodium Phosphate 10 mmol 100 In Sodium Chloride 0.9% 250 ml @ 125 mls/hr IVPB ONCE ONE Rx#:[id number] Oral 1400 950 Output: Urine 265 320 670 Other: Voiding Method Indwelling Catheter Indwelling Catheter Indwelling Catheter Weight 41.2 kg 43.4 kg Patient Weight 06/22/17 06:59 Weight 43.4 kg his is a 56-year-old emaciated male. Poor mental status HEENT: Head is atraumatic, normocephalic. Pupils equal, round. Sclerae is anicteric. Mucous membranes of the mouth are dry. Thrush is noted. Dentition is in poor order. NECK: Supple. No JVD. No lymphadenopathy. No thyromegaly. LUNGS: Coarse sounds bilaterally with poor inspiratory effort. No intercostal retractions. HEART: Regular rate and rhythm. No murmur. ABDOMEN: Soft. Bowel sounds are present. No masses. No tenderness. EXTREMITIES: Bilateral lower extremity amputations noted. Evidence of the open ulceration to the right lateral residual limb. Skin: Please refer to the nursing photography for the extensive buttocks coccyx trochanteric and right residual limb ulcerations. For the overall measurements. The do appear to be necrotic with some infection. Bedside debridement to remove the hanging necrotic flushes occurring. NEUROLOGICAL: Poor mental status Results CBC & Chem 7: 06/21/17 06:20 06/21/17 06:20 Labs: Abnormal Lab Results - Last 24 Hours (Table) 06/20/17 06/20/17 06/21/17 Range/Units 22:38 22:58 00:15 RBC (4.30-5.90) m/uL Hgb (13.0-17.5) gm/dL Hct (39.0-53.0) % Plt Count (150-450) k/uL Chloride 108 H (98-107) mmol/L Carbon Dioxide (22-30) mmol/L Creatinine (0.66-1.25) mg/dL Glucose (74-99) mg/dL POC Glucose (mg/dL) 228 H 161 H (75-99) mg/dL Hemoglobin A1c (4.2-6.1) % Phosphorus (2.5-4.5) mg/dL Total Protein (6.3-8.2) g/dL Albumin (3.5-5.0) g/dL 06/21/17 06/21/17 06/21/17 Range/Units 00:30 00:30 00:30 RBC 2.62 L (4.30-5.90) m/uL Hgb 7.4 L (13.0-17.5) gm/dL Hct 23.8 L (39.0-53.0) % Plt Count 466 H (150-450) k/uL Chloride 109 H (98-107) mmol/L Carbon Dioxide (22-30) mmol/L Creatinine 0.50 L (0.66-1.25) mg/dL Glucose 144 H (74-99) mg/dL POC Glucose (mg/dL) (75-99) mg/dL Hemoglobin A1c 14.4 H (4.2-6.1) % Phosphorus (2.5-4.5) mg/dL Total Protein (6.3-8.2) g/dL Albumin (3.5-5.0) g/dL 06/21/17 06/21/17 06/21/17 Range/Units 01:02 03:15 04:23 RBC (4.30-5.90) m/uL Hgb (13.0-17.5) gm/dL Hct (39.0-53.0) % Plt Count (150-450) k/uL Chloride (98-107) mmol/L Carbon Dioxide (22-30) mmol/L Creatinine (0.66-1.25) mg/dL Glucose (74-99) mg/dL POC Glucose (mg/dL) 129 H 148 H 134 H (75-99) mg/dL Hemoglobin A1c (4.2-6.1) % Phosphorus (2.5-4.5) mg/dL Total Protein (6.3-8.2) g/dL Albumin (3.5-5.0) g/dL 06/21/17 06/21/17 06/21/17 Range/Units 05:19 06:08 06:20 RBC 2.89 L (4.30-5.90) m/uL Hgb 8.2 L (13.0-17.5) gm/dL Hct 25.7 L (39.0-53.0) % Plt Count (150-450) k/uL Chloride (98-107) mmol/L Carbon Dioxide (22-30) mmol/L Creatinine (0.66-1.25) mg/dL Glucose (74-99) mg/dL POC Glucose (mg/dL) 153 H 167 H (75-99) mg/dL Hemoglobin A1c (4.2-6.1) % Phosphorus (2.5-4.5) mg/dL Total Protein (6.3-8.2) g/dL Albumin (3.5-5.0) g/dL 06/21/17 06/21/17 06/21/17 Range/Units 06:20 07:03 08:03 RBC (4.30-5.90) m/uL Hgb (13.0-17.5) gm/dL Hct (39.0-53.0) % Plt Count (150-450) k/uL Chloride 110 H (98-107) mmol/L Carbon Dioxide 20 L (22-30) mmol/L Creatinine 0.50 L (0.66-1.25) mg/dL Glucose 154 H (74-99) mg/dL POC Glucose (mg/dL) 212 H 143 H (75-99) mg/dL Hemoglobin A1c (4.2-6.1) % Phosphorus 2.4 L (2.5-4.5) mg/dL Total Protein 5.4 L (6.3-8.2) g/dL Albumin 2.5 L (3.5-5.0) g/dL 06/21/17 06/21/17 06/21/17 Range/Units 09:11 12:26 18:26 RBC (4.30-5.90) m/uL Hgb (13.0-17.5) gm/dL Hct (39.0-53.0) % Plt Count (150-450) k/uL Chloride (98-107) mmol/L Carbon Dioxide (22-30) mmol/L Creatinine (0.66-1.25) mg/dL Glucose (74-99) mg/dL POC Glucose (mg/dL) 124 H 291 H 420 H (75-99) mg/dL Hemoglobin A1c (4.2-6.1) % Phosphorus (2.5-4.5) mg/dL Total Protein (6.3-8.2) g/dL Albumin (3.5-5.0) g/dL 06/21/17 Range/Units 19:41 RBC (4.30-5.90) m/uL Hgb (13.0-17.5) gm/dL Hct (39.0-53.0) % Plt Count (150-450) k/uL Chloride (98-107) mmol/L Carbon Dioxide (22-30) mmol/L Creatinine (0.66-1.25) mg/dL Glucose (74-99) mg/dL POC Glucose (mg/dL) 419 H (75-99) mg/dL Hemoglobin A1c (4.2-6.1) % Phosphorus (2.5-4.5) mg/dL Total Protein (6.3-8.2) g/dL Albumin (3.5-5.0) g/dL Microbiology - Last 24 Hours (Table) 06/20/17 14:10 Gram Stain - Preliminary Buttock Wound Culture - Preliminary Gram Neg Bacilli Presumptive MRSA 06/20/17 14:10 Blood Culture - Preliminary Blood No Growth after 24 hours 06/20/17 14:20 Urine Culture - Preliminary Urine,Voided Laboratory Results WBC 7.9 k/uL (3.8-10.6) 06/21/17 06:20 RBC 2.89 m/uL (4.30-5.90) L 06/21/17 06:20 Hgb 8.2 gm/dL (13.0-17.5) L 06/21/17 06:20 Hct 25.7 % (39.0-53.0) L 06/21/17 06:20 MCV 88.9 fL (80.0-100.0) 06/21/17 06:20 MCH 28.5 pg (25.0-35.0) 06/21/17 06:20 MCHC 32.1 g/dL (31.0-37.0) 06/21/17 06:20 RDW 15.0 % (11.5-15.5) 06/21/17 06:20 Plt Count 443 k/uL (150-450) 06/21/17 06:20 Neutrophils % 70 % 06/21/17 06:20 Lymphocytes % 19 % 06/21/17 06:20 Monocytes % 5 % 06/21/17 06:20 Eosinophils % 4 % 06/21/17 06:20 Basophils % 0 % 06/21/17 06:20 Neutrophils # 5.5 k/uL (1.3-7.7) 06/21/17 06:20 Lymphocytes # 1.5 k/uL (1.0-4.8) 06/21/17 06:20 Monocytes # 0.4 k/uL (0-1.0) 06/21/17 06:20 Eosinophils # 0.3 k/uL (0-0.7) 06/21/17 06:20 Basophils # 0.0 k/uL (0-0.2) 06/21/17 06:20 Manual Slide Review Performed 06/21/17 00:30 Hypochromasia Slight 06/21/17 06:20 Macrocytosis Slight 06/20/17 14:10 PT 10.4 sec (9.0-12.0) 06/20/17 14:10 INR 1.0 (<1.2) 06/20/17 14:10 APTT 22.8 sec (22.0-30.0) 06/20/17 14:10 Sodium 137 mmol/L (137-145) 06/21/17 06:20 Potassium 4.8 mmol/L (3.5-5.1) 06/21/17 06:20 Chloride 110 mmol/L (98-107) H 06/21/17 06:20 Carbon Dioxide 20 mmol/L (22-30) L 06/21/17 06:20 Anion Gap 7 mmol/L 06/21/17 06:20 BUN 18 mg/dL (9-20) 06/21/17 06:20 Creatinine 0.50 mg/dL (0.66-1.25) L 06/21/17 06:20 Est GFR (MDRD) Af Amer >60 (>60 ml/min/1.73 sqM) 06/21/17 06:20 Est GFR (MDRD) Non-Af >60 (>60 ml/min/1.73 sqM) 06/21/17 06:20 Glucose 154 mg/dL (74-99) H 06/21/17 06:20 POC Glucose (mg/dL) 419 mg/dL (75-99) H 06/21/17 19:41 POC Glu Mat Roller ID Elan Alston Dal 06/21/17 19:[address] Glu mg/dL 367 mg/dL 06/21/17 00:30 Hemoglobin A1c 14.4 % (4.2-6.1) H 06/21/17 00:30 Plasma Lactic Acid Ayo 1.6 mmol/L (0.7-2.0) 06/21/17 00:30 Calcium 8.4 mg/dL (8.4-10.2) 06/21/17 06:20 Phosphorus 2.4 mg/dL (2.5-4.5) L 06/21/17 06:20 Magnesium 1.9 mg/dL (1.6-2.3) 06/21/17 06:20 Total Bilirubin 0.3 mg/dL (0.2-1.3) 06/21/17 06:20 AST 22 U/L (17-59) 06/21/17 06:20 ALT 36 U/L (21-72) 06/21/17 06:20 Alkaline Phosphatase 77 U/L (38-126) 06/21/17 06:20 Ammonia <9 umol/L (<30) 06/20/17 14:10 Total Creatine Kinase 191 U/L (55-170) H 06/20/17 14:10 CK-MB (CK-2) 6.1 ng/mL (0.0-2.4) H* 06/20/17 14:10 CK-MB (CK-2) Rel Index 3.2 06/20/17 14:10 Troponin I <0.012 ng/mL (0.000-0.034) 06/20/17 14:10 Total Protein 5.4 g/dL (6.3-8.2) L 06/21/17 06:20 Albumin 2.5 g/dL (3.5-5.0) L 06/21/17 06:20 Urine Color Colorless 06/20/17 14:20 Urine Appearance Cloudy (Clear) 06/20/17 14:20 Urine pH 6.5 (5.0-8.0) 06/20/17 14:20 Ur Specific [place] 1.017 (1.001-1.035) 06/20/17 14:20 Urine Protein Negative (Negative) 06/20/17 14:20 Urine Glucose (UA) 4+ (Negative) H 06/20/17 14:20 Urine Ketones Negative (Negative) 06/20/17 14:20 Urine Blood Trace (Negative) H 06/20/17 14:20 Urine Nitrite Negative (Negative) 06/20/17 14:20 Urine Bilirubin Negative (Negative) 06/20/17 14:20 Urine Urobilinogen <2.0 mg/dL (<2.0) 06/20/17 14:20 Ur Leukocyte Esterase Large (Negative) H 06/20/17 14:20 Urine RBC 2 /hpf (0-5) 06/20/17 14:20 Urine WBC >182 /hpf (0-5) H 06/20/17 14:20 Urine WBC Clumps Few /hpf (None) H 06/20/17 14:20 Urine Yeast (Budding) Few /hpf (None) H 06/20/17 14:20 Acetone, Qual Positive (Negative) 06/20/17 14:10 Microbiology 06/20/17 14:10 Buttock Gram Stain - Preliminary 06/20/17 14:10 Buttock Wound Culture - Preliminary Gram Neg Bacilli Presumptive MRSA 06/20/17 14:10 Blood Blood Culture - Preliminary No Growth after 24 hours 06/20/17 14:20 Urine,Voided Urine Culture - Preliminary Assessment and Plan (1) Diabetic ketoacidosis Status: Acute (2) Decubitus ulcer of sacral region, stage 4 Narrative/Plan: 56-year-old male presents to the emergency center if not feeling well. He was trying to take care of himself at home. When this failed he eventually came to the emergency center and was not evidence of a blood sugar of 1200. Does not take his blood sugars at home. It is noted in the past his chronic medical noncompliance. At admission the patient was profoundly ill and hypotensive and dehydrated and responded well to fluids. Concerns for sepsis because of the extensive ulcerations as noted. Local wound care is provided with the silver alginate to the large buttocks ulcerations foam to the left trochanteric area and Santyl to the other regions. Antibiotic therapy is with vancomycin and meropenem for the likely isolated pathogens. The patient has a very complex psychosocial status. Several times in the past we've arranged for him to go to extended care facility to receive antibiotic therapy only to sign himself out shortly thereafter. He has a complex history that makes placement into the extended care facilities difficult. He was sent to a facility in [place] who accept him willingly and he signed out from that place also. He will not have the opportunity for outpatient antibiotic therapy and his discharge Status: Acute
[2017-06-22] MEDS: MEROPENEM 1 GM in SODIUM CHLORIDE 0.9% 100 ML IVPB SCH ×4 (01:06→23:56)
[2017-06-22] MEDS: D5-0.45% NACL WITH KCL 20MEQ/L 1,000 ML IV SCH ×2 (01:06→07:27)
[2017-06-22 01:08] LABS: Glucose,Whole Blood 219 mg/dL (75-99)
[2017-06-22] MEDS: INSULIN LISPRO (humaLOG) 300 UNIT/3 ML VIAL SQ SCH ×5 (01:08→21:18)
[2017-06-22 04:47] LABS: Basophils % (A) 0 %; CH 27.7; CHCM 31.1; Eosinophils # (A) 0.4 k/uL (0-0.7); Eosinophils % (A) 5 %; HCT 28.9 % (39.0-53.0); HDW 2.91; HGB 8.9 gm/dL (13.0-17.5); Hypochromasia Moderate; Luc # (Auto) 0.12; Luc % (Auto) 1; Lymphocytes # (A) 1.8 k/uL (1.0-4.8); Lymphocytes % (A) 19 %; MCH 27.5 pg (25.0-35.0); MCHC 30.9 g/dL (31.0-37.0); MCV 89.1 fL (80.0-100.0); Mean Platelet Volume 7.4; Monocytes # (A) 0.3 k/uL (0-1.0); Monocytes % (A) 3 %; Neutrophils # (A) 6.8 k/uL (1.3-7.7); Neutrophils % (A) 72 %; RBC 3.24 m/uL (4.30-5.90); RDW 15.1 % (11.5-15.5); WBC 9.5 k/uL (3.8-10.6); WBC (Perox) 9.63
[2017-06-22 06:03] LABS: ALT 37 U/L (21-72); AST 29 U/L (17-59); Alkaline Phosphatase 78 U/L (38-126); Anion Gap 5 mmol/L; Blood Urea Nitrogen 16 mg/dL (9-20); Calcium 8.2 mg/dL (8.4-10.2); Carbon Dioxide 19 mmol/L (22-30); Chloride 108 mmol/L (98-107); Glucose 112 mg/dL (74-99); Magnesium 2.1 mg/dL (1.6-2.3); Non-African American GFR(MDRD) >60 (>60 ml/min/1.73 sqM); Phosphorous 2.7 mg/dL (2.5-4.5); Potassium 5.2 mmol/L (3.5-5.1); Sodium 132 mmol/L (137-145); Total Bilirubin 0.3 mg/dL (0.2-1.3); Total Protein 5.1 g/dL (6.3-8.2)
[2017-06-22 07:47] LABS: Glucose,Whole Blood 95 mg/dL (75-99)
[2017-06-22] MEDS: PANTOPRAZOLE 40 MG TABLET PO SCH (08:10)
[2017-06-22] MEDS: ASPIRIN 81 MG CHEW PO SCH (08:10)
[2017-06-22] MEDS: CARVEDILOL 6.25 MG TAB PO SCH ×2 (08:10→17:01)
[2017-06-22] MEDS: hydrALAZINE HCL 50 MG TAB PO SCH ×3 (08:11→21:18)
[2017-06-22] MEDS: GABAPENTIN 300 MG CAP PO SCH ×3 (08:11→21:17)
[2017-06-22] MEDS: LOSARTAN 25 MG TAB PO SCH ×2 (08:11→21:17)
[2017-06-22] MEDS: DULoxetine HCL 30 MG CAPSULE.DR PO SCH ×2 (08:11→21:17)
--- NOTE | 2017-06-22 08:19 | CDI ---
In responding to this query, please exercise your independent professional judgment. The [facility] Coding Staff and Clinical Documentation Specialists appreciate your assistance in clarifying documentation, maintaining compliance with coding guidelines, accurately documenting patients condition and capturing severity of illness. The fact that a question is asked does not imply that any particular answer is desired or expected. Communication forms are a method of clarifying documentation and are not made part of the Legal Health Record. Thank you in advance for your clarification. Last Revision, September 2015 Suyapa Mata [address] [facility] [place] [address] Documentation Clarification Form Date: 06/22/2017 7:53:00 AM From: Chantal Trujillo RN, CDS Admit Date: 06/20/2017 3:24:00 PM Patient Name: Ambrose Berry Visit Number: [id number] She MEDRANO/Dr. Brent Chong 56 year old patient admitted for Diabetic Ketoacidosis. Stage 3 decubitus ulcer on buttock documented per H&P. Patient has bilateral Above knee amputations. History/Risk Factors: Diabetes Mellitus, Bilateral Above knee amputations, PVD, Clinical Indicators : Glucose 1212 on admission Treatment: Insulin infusion In order to capture the severity of Illness and necessary documentation specificity, please clarify DM type with DKA: DM Type 1 DM Type 2 Unable to Determine Other Condition Please document any body system complications or specific manifestations related to the diabetes: Diabetic Nephropathy Diabetic Autonomic Neuropathy Diabetic Peripheral Vascular Disease Diabetic ulcers, specify location Ketoacidosis Hypoglycemia with or without coma Hyperglycemia Hyperosmolarity Coma/nonketotic hyperglycemic-hyperosmolar coma Other condition Please document in your progress notes and discharge summary in order to capture severity of illness and risk of mortality. Include clinical findings that support your diagnosis. FYI: Press F11 to launch patient chart. Thank you. OSEI
[2017-06-22] MEDS: METHADONE 5 MG TAB PO SCH ×3 (09:39→21:35)
[2017-06-22] MEDS: SODIUM CHLORIDE 0.9% 1,000 ML IV SCH (09:41)
[2017-06-22] MEDS: COLLAGENASE 250 UNIT/GM OINTMENT 30 GM TUBE TOPICAL SCH (09:43)
--- NOTE | 2017-06-22 10:15 | P.PN ---
Subjective Progress note dated 06/22/2017 His is a 56-year-old male who was admitted with a diagnosis of diabetic ketoacidosis primarily because of noncompliance with medications. Please see my consultation yesterday. I did speak to Dr. Chong his primary physician and Dr. Chong did let me know the patient been very noncompliant in today he actually admitted. Anyway the patient had some mental status changes. He was brought in. He was found to be in diabetic ketoacidosis. He is currently off the insulin drip. Doing much better. He could be transferred out of the ICU. We'll wait for that. He does smoke cigarettes. He denies other recreational drugs. Denies significant alcohol intake. The patient is eating and drinking. Feeling much better. Is a bilateral amputee. Does have a large decubitus ulcer on his coccyx area. Objective - Vital Signs Vital signs: Vital Signs Temp 98 F 06/22/17 08:00 Pulse 76 06/22/17 09:00 Resp 11 L 06/22/17 09:00 BP 152/82 06/22/17 09:00 Pulse Ox 98 06/22/17 08:00 Intake & Output 06/21/17 06/22/17 06/22/17 18:59 06:59 18:59 Intake Total 4370 1125 120 Output Total 765 925 195 Balance 3605 200 -75 Weight 43.4 kg 48 kg Intake: IV 970 600 100 D5-0.45% NaCl with KCl 970 600 100 20Meq/l 1,000 ml @ 150 mls/hr IV .Q6H40M ROSA Rx# :[id number] Intake, IV Titration 1300 200 20 Amount Magnesium Sulfate-D5w Pmx 200 1 gm In Dextrose/Water 1 100ml.bag @ 100 mls/hr IVPB Q1H ROSA Rx#: [id number] Meropenem 1 gm In Sodium 200 Chloride 0.9% 100 ml @ 100 mls/hr IVPB Q8HR ROSA Rx#:[id number] Sodium Chloride 0.9% 1, 20 000 ml @ 20 mls/hr IV . Q24H ROSA Rx#:[id number] Sodium Chloride 0.9% 1, 1000 000 ml @ 999 mls/hr IV . Q1H1M ONE Rx#:[id number] Sodium Phosphate 10 mmol 100 In Sodium Chloride 0.9% 250 ml @ 125 mls/hr IVPB ONCE ONE Rx#:[id number] Oral 2100 325 Output: Urine 765 925 195 Other: Voiding Method Indwelling Catheter Indwelling Catheter - Exam No acute distress, oriented 3. HEENT examination is grossly unremarkable. Mucous membranes are moist. No oral lesions. Neck supple. Full range of motion. No adenopathy or thyromegaly. Cardiovascular examination reveals regular rhythm rate. S1-S2 normal. No S3- S4. No distinct murmur. Lungs clear breath sounds equal. No wheezes rhonchi or crackles. Abdomen soft bowel sounds are heard. Extremities are intact intact except for the lower extremities which have been previously amputated. Skin without rash. Neurologic examination is nonfocal. - Labs CBC & Chem 7: 06/22/17 04:28 06/22/17 05:29 Labs: Abnormal Lab Results - Last 24 Hours (Table) 06/21/17 06/21/17 06/21/17 Range/Units 00:30 12:26 18:26 RBC (4.30-5.90) m/uL Hgb (13.0-17.5) gm/dL Hct (39.0-53.0) % MCHC (31.0-37.0) g/dL Plt Count (150-450) k/uL Sodium (137-145) mmol/L Potassium (3.5-5.1) mmol/L Chloride (98-107) mmol/L Carbon Dioxide (22-30) mmol/L Creatinine (0.66-1.25) mg/dL Glucose (74-99) mg/dL POC Glucose (mg/dL) 291 H 420 H (75-99) mg/dL Hemoglobin A1c 14.4 H (4.2-6.1) % Calcium (8.4-10.2) mg/dL Total Protein (6.3-8.2) g/dL Albumin (3.5-5.0) g/dL 06/21/17 06/22/17 06/22/17 Range/Units 19:41 01:05 04:28 RBC 3.24 L (4.30-5.90) m/uL Hgb 8.9 L (13.0-17.5) gm/dL Hct 28.9 L (39.0-53.0) % MCHC 30.9 L (31.0-37.0) g/dL Plt Count 565 H (150-450) k/uL Sodium (137-145) mmol/L Potassium (3.5-5.1) mmol/L Chloride (98-107) mmol/L Carbon Dioxide (22-30) mmol/L Creatinine (0.66-1.25) mg/dL Glucose (74-99) mg/dL POC Glucose (mg/dL) 419 H 219 H (75-99) mg/dL Hemoglobin A1c (4.2-6.1) % Calcium (8.4-10.2) mg/dL Total Protein (6.3-8.2) g/dL Albumin (3.5-5.0) g/dL 06/22/17 Range/Units 05:29 RBC (4.30-5.90) m/uL Hgb (13.0-17.5) gm/dL Hct (39.0-53.0) % MCHC (31.0-37.0) g/dL Plt Count (150-450) k/uL Sodium 132 L (137-145) mmol/L Potassium 5.2 H (3.5-5.1) mmol/L Chloride 108 H (98-107) mmol/L Carbon Dioxide 19 L (22-30) mmol/L Creatinine 0.60 L (0.66-1.25) mg/dL Glucose 112 H (74-99) mg/dL POC Glucose (mg/dL) (75-99) mg/dL Hemoglobin A1c (4.2-6.1) % Calcium 8.2 L (8.4-10.2) mg/dL Total Protein 5.1 L (6.3-8.2) g/dL Albumin 2.3 L (3.5-5.0) g/dL Microbiology - Last 24 Hours (Table) 06/20/17 14:10 Gram Stain - Preliminary Buttock Wound Culture - Preliminary Gram Neg Bacilli Presumptive MRSA 06/20/17 14:10 Blood Culture - Preliminary Blood No Growth after 24 hours Assessment and Plan (1) Decubitus ulcer of ankle, stage 3 Status: Acute (2) Diabetic ketoacidosis Status: Acute (3) Altered mental status Status: Acute (4) Anemia Status: Acute (5) CHF (congestive heart failure) Status: Acute (6) Cellulitis Status: Acute (7) Decubitus ulcer Status: Acute (8) Decubitus ulcer of buttock, stage 3 Status: Acute (9) Delirium due to general medical condition Status: Acute (10) Diabetes mellitus Status: Acute (11) Fall Status: Acute Plan: Plan dated 06/21/2017 The patient's doing reasonably well. I've asked the nurse to go ahead and advance his diet. Should be allowed to drink and eat. We'll DC his insulin drip which is currently running at 2 units per hour. We'll switch him instead to a NovoLog sliding scale before meals and at bedtime. The patient's also on O2 at 2 L. Probably doesn't need it. He is also getting an IV of D5.45 with 20 of KCl at 150 an hour. We'll see if we can transfer him to general medical floor and continued on her order him a diet. We'll also resume his other medications. Prognosis is guarded. We'll continue to follow. X-rays labs and medications are all reviewed. Plan dated 06/22/2017 The patient is doing reasonably well. Could be transferred out. The patient's son not receiving any supplemental oxygen. Getting a D5.45 IV at KVO. Started on Lantus sliding scale. Was previously on NovoLog sliding scale. The patient otherwise is doing reasonably well. Labs and x-rays are reviewed. Medications are reviewed. The patient can be discharged out to the general medical floor. Just waiting for a bed at this time. Time with Patient: Less than 30
--- NOTE | 2017-06-22 11:33 | P.PN ---
Subjective Principal diagnosis: 56-year-old male seen on rounds this morning with Dr. Chong. Patient was admitted for DKA. Patient is off of his insulin drip and has orders to be transferred out of the ICU, awaiting bed. Patient states he continues to feel weak and is experiencing a lot of pain. Patient denies any shortness of breath or chest pain. Patient states he has not had much of an appetite, however he ate 100% of his breakfast this morning. Patient states he is drinking fluids without difficulty. Denies any nausea or vomiting. Dr. Becerra has been consulted for a large stage III decubitus ulcer, present on admission. Social work continues to work with patient regarding ECF placement. Objective - Vital Signs Vital signs: Vital Signs Temp 98 F 06/22/17 08:00 Pulse 79 06/22/17 11:00 Resp 10 L 06/22/17 11:00 BP 121/80 06/22/17 11:00 Pulse Ox 98 06/22/17 08:00 Intake & Output 06/21/17 06/22/17 06/22/17 18:59 06:59 18:59 Intake Total 4370 1125 160 Output Total 765 925 395 Balance 3605 200 -235 Weight 43.4 kg 48 kg Intake: IV 970 600 100 D5-0.45% NaCl with KCl 970 600 100 20Meq/l 1,000 ml @ 150 mls/hr IV .Q6H40M ROSA Rx# :[id number] Intake, IV Titration 1300 200 60 Amount Magnesium Sulfate-D5w Pmx 200 1 gm In Dextrose/Water 1 100ml.bag @ 100 mls/hr IVPB Q1H ROSA Rx#: [id number] Meropenem 1 gm In Sodium 200 Chloride 0.9% 100 ml @ 100 mls/hr IVPB Q8HR ROSA Rx#:[id number] Sodium Chloride 0.9% 1, 60 000 ml @ 20 mls/hr IV . Q24H ROSA Rx#:[id number] Sodium Chloride 0.9% 1, 1000 000 ml @ 999 mls/hr IV . Q1H1M ONE Rx#:[id number] Sodium Phosphate 10 mmol 100 In Sodium Chloride 0.9% 250 ml @ 125 mls/hr IVPB ONCE ONE Rx#:[id number] Oral 2100 325 Output: Urine 765 925 395 Other: Voiding Method Indwelling Catheter Indwelling Catheter - Exam GENERAL: Alert and oriented. Appears in no acute distress. Pleasant. RESPIRATORY: Lungs clear bilaterally. No use of accessory muscles. Patient maintaining oxygen saturation greater than 92%. CARDIOVASCULAR: S1 and S2 noted. No murmurs auscultated. No JVD noted. EXTREMITIES: No edema noted. Patient with bilateral [id number] amputations. ABDOMEN: No distention noted. Abdomen soft and round. Normal active bowel sounds auscultated 4 quadrants. No pain or tenderness noted upon palpation. Skin: Patient with stage III ulcer to coccyx. Patient also has wound on right knee stump and posterior aspect of scrotum. - Labs CBC & Chem 7: 06/22/17 04:28 06/22/17 05:29 Labs: Abnormal Lab Results - Last 24 Hours (Table) 06/21/17 06/21/17 06/21/17 Range/Units 00:30 12:26 18:26 RBC (4.30-5.90) m/uL Hgb (13.0-17.5) gm/dL Hct (39.0-53.0) % MCHC (31.0-37.0) g/dL Plt Count (150-450) k/uL Sodium (137-145) mmol/L Potassium (3.5-5.1) mmol/L Chloride (98-107) mmol/L Carbon Dioxide (22-30) mmol/L Creatinine (0.66-1.25) mg/dL Glucose (74-99) mg/dL POC Glucose (mg/dL) 291 H 420 H (75-99) mg/dL Hemoglobin A1c 14.4 H (4.2-6.1) % Calcium (8.4-10.2) mg/dL Total Protein (6.3-8.2) g/dL Albumin (3.5-5.0) g/dL 06/21/17 06/22/17 06/22/17 Range/Units 19:41 01:05 04:28 RBC 3.24 L (4.30-5.90) m/uL Hgb 8.9 L (13.0-17.5) gm/dL Hct 28.9 L (39.0-53.0) % MCHC 30.9 L (31.0-37.0) g/dL Plt Count 565 H (150-450) k/uL Sodium (137-145) mmol/L Potassium (3.5-5.1) mmol/L Chloride (98-107) mmol/L Carbon Dioxide (22-30) mmol/L Creatinine (0.66-1.25) mg/dL Glucose (74-99) mg/dL POC Glucose (mg/dL) 419 H 219 H (75-99) mg/dL Hemoglobin A1c (4.2-6.1) % Calcium (8.4-10.2) mg/dL Total Protein (6.3-8.2) g/dL Albumin (3.5-5.0) g/dL 06/22/17 Range/Units 05:29 RBC (4.30-5.90) m/uL Hgb (13.0-17.5) gm/dL Hct (39.0-53.0) % MCHC (31.0-37.0) g/dL Plt Count (150-450) k/uL Sodium 132 L (137-145) mmol/L Potassium 5.2 H (3.5-5.1) mmol/L Chloride 108 H (98-107) mmol/L Carbon Dioxide 19 L (22-30) mmol/L Creatinine 0.60 L (0.66-1.25) mg/dL Glucose 112 H (74-99) mg/dL POC Glucose (mg/dL) (75-99) mg/dL Hemoglobin A1c (4.2-6.1) % Calcium 8.2 L (8.4-10.2) mg/dL Total Protein 5.1 L (6.3-8.2) g/dL Albumin 2.3 L (3.5-5.0) g/dL Microbiology - Last 24 Hours (Table) 06/20/17 14:10 Gram Stain - Preliminary Buttock Wound Culture - Preliminary Gram Neg Bacilli Presumptive MRSA 06/20/17 14:10 Blood Culture - Preliminary Blood No Growth after 24 hours Assessment and Plan (1) Diabetic ketoacidosis Narrative/Plan: Present on admission Current Visit: Yes Status: Acute (2) Decubitus ulcer of buttock, stage 3 Narrative/Plan: Present on admission Status: Chronic (3) Hyperglycemia due to type 2 diabetes mellitus Status: Chronic (4) Above knee amputation of left lower extremity Narrative/Plan: Due to uncontrolled diabetes Status: Chronic (5) Above knee amputation of right lower extremity Narrative/Plan: Due to uncontrolled diabetes Status: Chronic Plan: Impression Continued: Diabetic ulceration to right AKA stump with sloughing, unstageable, present on admission Stage 2 pressure ulcer to left hip, present on admission Stage 2 pressure ulcer to mid-back, present on admission Continue to monitor blood sugars and address as appropriate Monitor vital signs and address as appropriate Monitor labs Await further recommendations from social work regarding legal guardian and ECF placement. DVT prophylaxis GI prophylaxis Dr. Becerra on consult regarding nonhealing decubitus ulcer. Recommending Vanco and Meropenem per consultation note. Appreciate any input and recommendations. Patient may be transferred out of ICU, awaiting bed Change IV fluids to KVO Discontinue Castañeda catheter tomorrow at 6 AM Begin Marinol 2.5 twice a day Resume methadone 5 mg 3 times a day The above impression and plan of care have been discussed and directed by signing physician. She Rainey, nurse practitioner, acting as scribe for signing physician.
[2017-06-22 12:25] LABS: Glucose,Whole Blood 114 mg/dL (75-99)
[2017-06-22] MEDS ORDERED: IV VANCOMYCIN PER PHARMACY 1 EACH MISC MISCELLANE PRN (13:19)
[2017-06-22] MEDS ORDERED: VANCOMYCIN 1,000 MG in SODIUM CHLORIDE 0.9% 250 ML IVPB ONE (14:00)
[2017-06-22] MEDS: MULTIVITAMINS, THERA 1 EACH TAB PO SCH (14:03)
[2017-06-22] MEDS: DRONABINOL 2.5 MG CAP PO SCH (17:01)
[2017-06-22 17:36] LABS: Glucose,Whole Blood 239 mg/dL (75-99)
[2017-06-22 20:50] LABS: Glucose,Whole Blood 285 mg/dL (75-99)
[2017-06-22] MEDS: ATORVASTATIN 40 MG TAB PO SCH (21:17)
[2017-06-22] MEDS: INSULIN GLARGINE 100 UNIT/ML 10 ML VIAL SQ SCH (21:31)
--- NOTE | 2017-06-22 22:36 | P.PN ---
Subjective Principal diagnosis: sepsis, dka 56-year-old male who has a long-standing history of medical noncompliance presents to emergency center not feeling well. Deidre Singer change in his status. Became very weak. At presentation was found to again have evidence of diabetic ketoacidosis with a blood sugar of 1200. The patient was admitted to the intensive care unit and with resuscitation is improving. At this time is denying new fevers chills or rigors or sweats but is certainly very ill and weak at this time. Has multiple large skin pressure ulcerations which will be addressed at this time. Feeling much better today. More awake and alert. Her blood sugars improved. Understands that he is continuing to fail as far as his overall health. Objective - Vital Signs Vital signs: Vital Signs Temp 98.5 F 06/22/17 15:45 Pulse 83 06/22/17 15:45 Resp 16 06/22/17 15:45 BP 115/70 06/22/17 15:45 Pulse Ox 99 06/22/17 15:45 Intake & Output 06/22/17 06/22/17 06/23/17 06:59 18:59 06:59 Intake Total 1125 945 Output Total 925 695 Balance 200 250 Weight 48 kg 48 kg Intake: IV 600 100 D5-0.45% NaCl with KCl 600 100 20Meq/l 1,000 ml @ 150 mls/hr IV .Q6H40M ROSA Rx# :[id number] Intake, IV Titration 200 245 Amount Meropenem 1 gm In Sodium 200 Chloride 0.9% 100 ml @ 100 mls/hr IVPB Q8HR ROSA Rx#:[id number] Sodium Chloride 0.9% 1, 120 000 ml @ 20 mls/hr IV . Q24H ROSA Rx#:[id number] Vancomycin 1,000 mg In 125 Sodium Chloride 0.9% 250 ml @ 125 mls/hr IVPB ONCE ONE Rx#:[id number] Oral 325 600 Output: Urine 925 695 Other: Voiding Method Indwelling Catheter Indwelling Catheter - Exam his is a 56-year-old emaciated male. HEENT: Head is atraumatic, normocephalic. Pupils equal, round. Sclerae is anicteric. Mucous membranes of the mouth are dry. Thrush is noted. Dentition is in poor order. NECK: Supple. No JVD. No lymphadenopathy. No thyromegaly. LUNGS: Coarse sounds bilaterally with poor inspiratory effort. No intercostal retractions. HEART: Regular rate and rhythm. No murmur. ABDOMEN: Soft. Bowel sounds are present. No masses. No tenderness. EXTREMITIES: Bilateral lower extremity amputations noted. Evidence of the open ulceration to the right lateral residual limb. Skin: Please refer to the nursing photography for the extensive buttocks coccyx trochanteric and right residual limb ulcerations. For the overall measurements. The do appear to be necrotic with some infection. NEUROLOGICAL patient is now awake alert oriented to person place and time much improved from yesterday. - Labs CBC & Chem 7: 06/22/17 04:28 06/22/17 05:29 Labs: Abnormal Lab Results - Last 24 Hours (Table) 06/22/17 06/22/17 06/22/17 Range/Units 01:05 04:28 05:29 RBC 3.24 L (4.30-5.90) m/uL Hgb 8.9 L (13.0-17.5) gm/dL Hct 28.9 L (39.0-53.0) % MCHC 30.9 L (31.0-37.0) g/dL Plt Count 565 H (150-450) k/uL Sodium 132 L (137-145) mmol/L Potassium 5.2 H (3.5-5.1) mmol/L Chloride 108 H (98-107) mmol/L Carbon Dioxide 19 L (22-30) mmol/L Creatinine 0.60 L (0.66-1.25) mg/dL Glucose 112 H (74-99) mg/dL POC Glucose (mg/dL) 219 H (75-99) mg/dL Calcium 8.2 L (8.4-10.2) mg/dL Total Protein 5.1 L (6.3-8.2) g/dL Albumin 2.3 L (3.5-5.0) g/dL 06/22/17 06/22/17 06/22/17 Range/Units 12:23 17:11 20:49 RBC (4.30-5.90) m/uL Hgb (13.0-17.5) gm/dL Hct (39.0-53.0) % MCHC (31.0-37.0) g/dL Plt Count (150-450) k/uL Sodium (137-145) mmol/L Potassium (3.5-5.1) mmol/L Chloride (98-107) mmol/L Carbon Dioxide (22-30) mmol/L Creatinine (0.66-1.25) mg/dL Glucose (74-99) mg/dL POC Glucose (mg/dL) 114 H 239 H 285 H (75-99) mg/dL Calcium (8.4-10.2) mg/dL Total Protein (6.3-8.2) g/dL Albumin (3.5-5.0) g/dL Microbiology - Last 24 Hours (Table) 06/20/17 14:20 Urine Culture - Final Urine,Voided Karina albicans 06/20/17 14:10 Gram Stain - Preliminary Buttock Wound Culture - Preliminary Klebsiella pneumoniae Methicillin resist S. aureus 06/20/17 14:10 Blood Culture - Preliminary Blood No Growth after 48 hours Laboratory Results WBC 9.5 k/uL (3.8-10.6) 06/22/17 04:28 RBC 3.24 m/uL (4.30-5.90) L 06/22/17 04:28 Hgb 8.9 gm/dL (13.0-17.5) L 06/22/17 04:28 Hct 28.9 % (39.0-53.0) L 06/22/17 04:28 MCV 89.1 fL (80.0-100.0) 06/22/17 04:28 MCH 27.5 pg (25.0-35.0) 06/22/17 04:28 MCHC 30.9 g/dL (31.0-37.0) L 06/22/17 04:28 RDW 15.1 % (11.5-15.5) 06/22/17 04:28 Plt Count 565 k/uL (150-450) H 06/22/17 04:28 Neutrophils % 72 % 06/22/17 04:28 Lymphocytes % 19 % 06/22/17 04:28 Monocytes % 3 % 06/22/17 04:28 Eosinophils % 5 % 06/22/17 04:28 Basophils % 0 % 06/22/17 04:28 Neutrophils # 6.8 k/uL (1.3-7.7) 06/22/17 04:28 Lymphocytes # 1.8 k/uL (1.0-4.8) 06/22/17 04:28 Monocytes # 0.3 k/uL (0-1.0) 06/22/17 04:28 Eosinophils # 0.4 k/uL (0-0.7) 06/22/17 04:28 Basophils # 0.0 k/uL (0-0.2) 06/22/17 04:28 Manual Slide Review Performed 06/21/17 00:30 Hypochromasia Moderate 06/22/17 04:28 Macrocytosis Slight 06/20/17 14:10 PT 10.4 sec (9.0-12.0) 06/20/17 14:10 INR 1.0 (<1.2) 06/20/17 14:10 APTT 22.8 sec (22.0-30.0) 06/20/17 14:10 Sodium 132 mmol/L (137-145) L 06/22/17 05:29 Potassium 5.2 mmol/L (3.5-5.1) H 06/22/17 05:29 Chloride 108 mmol/L (98-107) H 06/22/17 05:29 Carbon Dioxide 19 mmol/L (22-30) L 06/22/17 05:29 Anion Gap 5 mmol/L 06/22/17 05:29 BUN 16 mg/dL (9-20) 06/22/17 05:29 Creatinine 0.60 mg/dL (0.66-1.25) L 06/22/17 05:29 Est GFR (MDRD) Af Amer >60 (>60 ml/min/1.73 sqM) 06/22/17 05:29 Est GFR (MDRD) Non-Af >60 (>60 ml/min/1.73 sqM) 06/22/17 05:29 Glucose 112 mg/dL (74-99) H 06/22/17 05:29 POC Glucose (mg/dL) 285 mg/dL (75-99) H 06/22/17 20:49 POC Glu [employer] ROSALES Gladys Basurto 06/22/17 20:[address] Glu mg/dL 367 mg/dL 06/21/17 00:30 Hemoglobin A1c 14.4 % (4.2-6.1) H 06/21/17 00:30 Plasma Lactic Acid Ayo 1.6 mmol/L (0.7-2.0) 06/21/17 00:30 Calcium 8.2 mg/dL (8.4-10.2) L 06/22/17 05:29 Phosphorus 2.7 mg/dL (2.5-4.5) 06/22/17 05:29 Magnesium 2.1 mg/dL (1.6-2.3) 06/22/17 05:29 Total Bilirubin 0.3 mg/dL (0.2-1.3) 06/22/17 05:29 AST 29 U/L (17-59) 06/22/17 05:29 ALT 37 U/L (21-72) 06/22/17 05:29 Alkaline Phosphatase 78 U/L (38-126) 06/22/17 05:29 Ammonia <9 umol/L (<30) 06/20/17 14:10 Total Creatine Kinase 191 U/L (55-170) H 06/20/17 14:10 CK-MB (CK-2) 6.1 ng/mL (0.0-2.4) H* 06/20/17 14:10 CK-MB (CK-2) Rel Index 3.2 06/20/17 14:10 Troponin I <0.012 ng/mL (0.000-0.034) 06/20/17 14:10 Total Protein 5.1 g/dL (6.3-8.2) L 06/22/17 05:29 Albumin 2.3 g/dL (3.5-5.0) L 06/22/17 05:29 Urine Color Colorless 06/20/17 14:20 Urine Appearance Cloudy (Clear) 06/20/17 14:20 Urine pH 6.5 (5.0-8.0) 06/20/17 14:20 Ur Specific [place] 1.017 (1.001-1.035) 06/20/17 14:20 Urine Protein Negative (Negative) 06/20/17 14:20 Urine Glucose (UA) 4+ (Negative) H 06/20/17 14:20 Urine Ketones Negative (Negative) 06/20/17 14:20 Urine Blood Trace (Negative) H 06/20/17 14:20 Urine Nitrite Negative (Negative) 06/20/17 14:20 Urine Bilirubin Negative (Negative) 06/20/17 14:20 Urine Urobilinogen <2.0 mg/dL (<2.0) 06/20/17 14:20 Ur Leukocyte Esterase Large (Negative) H 06/20/17 14:20 Urine RBC 2 /hpf (0-5) 06/20/17 14:20 Urine WBC >182 /hpf (0-5) H 06/20/17 14:20 Urine WBC Clumps Few /hpf (None) H 06/20/17 14:20 Urine Yeast (Budding) Few /hpf (None) H 06/20/17 14:20 Acetone, Qual Positive (Negative) 06/20/17 14:10 Microbiology 06/20/17 14:20 Urine,Voided Urine Culture - Final Karina albicans 06/20/17 14:10 Buttock Gram Stain - Preliminary 06/20/17 14:10 Buttock Wound Culture - Preliminary Klebsiella pneumoniae Methicillin resist S. aureus 06/20/17 14:10 Blood Blood Culture - Preliminary No Growth after 48 hours Assessment and Plan (1) Diabetic ketoacidosis Status: Acute (2) Decubitus ulcer of sacral region, stage 4 Narrative/Plan: 56-year-old male presents to the emergency center if not feeling well. He was trying to take care of himself at home. When this failed he eventually came to the emergency center and was not evidence of a blood sugar of 1200. Does not take his blood sugars at home. It is noted in the past his chronic medical noncompliance. At admission the patient was profoundly ill and hypotensive and dehydrated and responded well to fluids. Concerns for sepsis because of the extensive ulcerations as noted. Local wound care is provided with the silver alginate to the large buttocks ulcerations foam to the left trochanteric area and Santyl to the other regions. Antibiotic therapy is with vancomycin and meropenem for the likely isolated pathogens. Blood culture negative so far The patient has a very complex psychosocial status. Several times in the past we've arranged for him to go to extended care facility to receive antibiotic therapy only to sign himself out shortly thereafter. He has a complex history that makes placement into the extended care facilities difficult. He was sent to a facility in [place] who accept him willingly and he signed out from that place also. He will not have the opportunity for outpatient intravenous antibiotic therapy and his discharge Status: Acute
[2017-06-23 02:36] LABS: Glucose,Whole Blood 294 mg/dL (75-99)
[2017-06-23] MEDS: INSULIN LISPRO (humaLOG) 300 UNIT/3 ML VIAL SQ SCH ×5 (03:22→22:07)
[2017-06-23] MEDS: VANCOMYCIN 750 MG in SODIUM CHLORIDE 0.9% 250 ML IVPB SCH ×2 (06:20→17:31)
[2017-06-23 07:13] LABS: Glucose,Whole Blood 195 mg/dL (75-99)
[2017-06-23] MEDS: CARVEDILOL 6.25 MG TAB PO SCH ×2 (08:28→17:32)
[2017-06-23] MEDS: PANTOPRAZOLE 40 MG TABLET PO SCH (08:29)
[2017-06-23] MEDS: DRONABINOL 2.5 MG CAP PO SCH ×2 (08:29→17:32)
[2017-06-23] MEDS: COLLAGENASE 250 UNIT/GM OINTMENT 30 GM TUBE TOPICAL SCH (08:30)
[2017-06-23] MEDS: ASPIRIN 81 MG CHEW PO SCH (08:30)
[2017-06-23] MEDS: DULoxetine HCL 30 MG CAPSULE.DR PO SCH ×2 (08:31→22:07)
[2017-06-23] MEDS: GABAPENTIN 300 MG CAP PO SCH ×3 (08:31→22:06)
[2017-06-23] MEDS: METHADONE 5 MG TAB PO SCH ×3 (08:31→22:08)
[2017-06-23] MEDS: hydrALAZINE HCL 50 MG TAB PO SCH ×3 (08:32→22:08)
--- NOTE | 2017-06-23 10:05 | P.PN ---
Subjective Principal diagnosis: 56-year-old male seen and examined this morning. Patient was admitted for DKA. Patient was transferred out of ICU yesterday. Patient states his appetite is improving and patient 100% of his breakfast this morning. Patient denies any shortness of breath or chest pain. Patient states history inflows without difficulty. Denies any nausea or vomiting. Methadone 5 mg 3 times a day was resumed yesterday. However, patient states his pain is not well controlled and is experiencing a lot of pain in his coccyx area. Patient requesting his methadone to be increased to 10 mg 3 times a day which she states is his home dose. Discussed ECF placement with patient this morning. He states social worker assistant spoke with him yesterday and recommended [facility] in [place]. Patient states he has not made a decision regarding ECF but will continue to think about it today. Objective - Vital Signs Vital signs: Vital Signs Temp 98 F 06/23/17 07:00 Pulse 79 06/23/17 07:00 Resp 16 06/23/17 07:00 BP 106/64 06/23/17 07:00 Pulse Ox 96 06/23/17 07:00 Intake & Output 06/22/17 06/23/17 06/23/17 18:59 06:59 18:59 Intake Total 945 125 Output Total 695 1400 Balance 250 -1275 Weight 48 kg Intake: IV 100 D5-0.45% NaCl with KCl 100 20Meq/l 1,000 ml @ 150 mls/hr IV .Q6H40M [facility] Rx# :[id number] Intake, IV Titration 245 125 Amount Sodium Chloride 0.9% 1, 120 000 ml @ 20 mls/hr IV . Q24H [facility] Rx#:[id number] Vancomycin 1,000 mg In 125 125 Sodium Chloride 0.9% 250 ml @ 125 mls/hr IVPB ONCE ONE Rx#:[id number] Oral 600 Output: Urine 695 1400 Other: Voiding Method Indwelling Catheter Indwelling Catheter - Exam GENERAL: Alert and oriented. Appears in no acute distress. Pleasant. RESPIRATORY: Lungs clear bilaterally. No use of accessory muscles. Patient maintaining oxygen saturation greater than 92%. CARDIOVASCULAR: S1 and S2 noted. No murmurs auscultated. No JVD noted. EXTREMITIES: No edema noted. Patient with bilateral [id number] amputations. ABDOMEN: No distention noted. Abdomen soft and round. Normal active bowel sounds auscultated 4 quadrants. No pain or tenderness noted upon palpation. Skin: Patient with stage III ulcer to coccyx. Patient also has wound on right knee stump and posterior aspect of scrotum. - Labs CBC & Chem 7: 06/23/17 08:07 06/23/17 08:07 Labs: Abnormal Lab Results - Last 24 Hours (Table) 06/22/17 06/22/17 06/22/17 Range/Units 12:23 17:11 20:49 POC Glucose (mg/dL) 114 H 239 H 285 H (75-99) mg/dL 06/23/17 06/23/17 Range/Units 02:33 07:07 POC Glucose (mg/dL) 294 H 195 H (75-99) mg/dL Microbiology - Last 24 Hours (Table) 06/20/17 14:20 Urine Culture - Final Urine,Voided Karina albicans 06/20/17 14:10 Gram Stain - Preliminary Buttock Wound Culture - Preliminary Klebsiella pneumoniae Methicillin resist S. aureus 06/20/17 14:10 Blood Culture - Preliminary Blood No Growth after 48 hours Assessment and Plan Plan: ASSESSMENT: Diabetic ketoacidosis, present on admission, resolved Hyperglycemia due to uncontrolled type 2 diabetes mellitus History of bilateral above the knee amputation, due to uncontrolled diabetes Stage III decubitus ulcer on buttocks/coccyx area, present on admission Diabetic ulceration to right AKA stump with sloughing, unstageable, present on admission Stage 2 pressure ulcer to left hip, present on admission Stage 2 pressure ulcer to mid-back, present on admission PLAN: Continue to monitor blood sugars and address as appropriate. Continue with sliding scale and Lantus at bedtime. Monitor vital signs and address as appropriate Monitor labs Await further recommendations from social work regarding legal guardian and ECF placement. DVT prophylaxis not needed per Dr. Chong. Patient with hx of Bilateral AKA. GI prophylaxis-patient receiving Protonix [address] Becerra on consult regarding nonhealing decubitus ulcer. Recommending Vanco and Meropenem per consultation note. Blood cultures are negative at the 48 hour juan pablo. Urine culture from 06/20/2017 shows Karina albicans. Appreciate any input and recommendations. Continue methadone 5 mg 3 times a day D/C urinary catheter The above impression and plan of care have been discussed and directed by signing physician. She Rainey, nurse practitioner, acting as scribe for signing physician.
[2017-06-23 10:18] LABS: Basophils % (A) 0 %; CH 27.4; CHCM 30.3; Eosinophils # (A) 0.3 k/uL (0-0.7); Eosinophils % (A) 4 %; HCT 26.3 % (39.0-53.0); HDW 2.64; HGB 8.1 gm/dL (13.0-17.5); Hypochromasia Moderate; Luc # (Auto) 0.12; Luc % (Auto) 2; Lymphocytes # (A) 1.6 k/uL (1.0-4.8); Lymphocytes % (A) 23 %; MCH 27.8 pg (25.0-35.0); MCHC 30.7 g/dL (31.0-37.0); MCV 90.6 fL (80.0-100.0); Mean Platelet Volume 8.1; Monocytes # (A) 0.2 k/uL (0-1.0); Monocytes % (A) 3 %; Neutrophils # (A) 4.8 k/uL (1.3-7.7); Neutrophils % (A) 69 %; WBC (Perox) 7.39
[2017-06-23] MEDS: MEROPENEM 1 GM in SODIUM CHLORIDE 0.9% 100 ML IVPB SCH ×2 (10:22→16:24)
[2017-06-23] MEDS: SODIUM CHLORIDE 0.9% 1,000 ML IV SCH ×2 (10:23→16:23)
[2017-06-23 10:56] LABS: ALT 35 U/L (21-72); AST 20 U/L (17-59); Alkaline Phosphatase 82 U/L (38-126); Anion Gap 4 mmol/L; Blood Urea Nitrogen 20 mg/dL (9-20); Calcium 8.1 mg/dL (8.4-10.2); Carbon Dioxide 18 mmol/L (22-30); Chloride 110 mmol/L (98-107); Glucose 200 mg/dL (74-99); Magnesium 1.9 mg/dL (1.6-2.3); Non-African American GFR(MDRD) >60 (>60 ml/min/1.73 sqM); Phosphorous 2.8 mg/dL (2.5-4.5); Potassium 5.4 mmol/L (3.5-5.1); Sodium 132 mmol/L (137-145); Total Bilirubin <0.1 mg/dL (0.2-1.3); Total Protein 4.7 g/dL (6.3-8.2)
[2017-06-23 11:04] LABS: Manual Review Performed
[2017-06-23 12:14] LABS: Glucose,Whole Blood 269 mg/dL (75-99)
[2017-06-23] MEDS: MULTIVITAMINS, THERA 1 EACH TAB PO SCH (12:56)
--- NOTE | 2017-06-23 13:57 | P.PN ---
Subjective Principal diagnosis: Diabetic ketoacidosis with mental status changes This is a pleasant 56-year-old gentleman who was admitted with altered mental status and was found to have diabetic ketoacidosis. He has admitted to some issues with noncompliance. He is seen again today in follow-up on the regular medical floor. He is awake and alert and oriented. He denies any worsening shortness of breath, cough or congestion. He is eating better and blood glucose level 200. He is currently on Lantus and Humalog. Objective - Vital Signs Vital signs: Vital Signs Temp 98 F 06/23/17 07:00 Pulse 79 06/23/17 07:00 Resp 16 06/23/17 07:00 BP 106/64 06/23/17 07:00 Pulse Ox 96 06/23/17 07:00 Intake & Output 06/22/17 06/23/17 06/23/17 18:59 06:59 18:59 Intake Total 945 125 Output Total 695 1400 Balance 250 -1275 Weight 48 kg Intake: IV 100 D5-0.45% NaCl with KCl 100 20Meq/l 1,000 ml @ 150 mls/hr IV .Q6H40M [facility] Rx# :[id number] Intake, IV Titration 245 125 Amount Sodium Chloride 0.9% 1, 120 000 ml @ 20 mls/hr IV . Q24H [facility] Rx#:[id number] Vancomycin 1,000 mg In 125 125 Sodium Chloride 0.9% 250 ml @ 125 mls/hr IVPB ONCE ONE Rx#:[id number] Oral 600 Output: Urine 695 1400 Other: Voiding Method Indwelling Catheter Indwelling Catheter Indwelling Catheter - Exam No acute distress, oriented 3. HEENT examination is grossly unremarkable. Mucous membranes are moist. No oral lesions. Neck supple. Full range of motion. No adenopathy or thyromegaly. Cardiovascular examination reveals regular rhythm rate. S1-S2 normal. No S3- S4. No distinct murmur. Lungs clear breath sounds equal. No wheezes rhonchi or crackles. Abdomen soft bowel sounds are heard. Extremities are intact intact except for the lower extremities which have been previously amputated. Skin without rash. Neurologic examination is nonfocal. - Labs CBC & Chem 7: 06/23/17 08:07 06/23/17 08:07 Labs: Abnormal Lab Results - Last 24 Hours (Table) 06/22/17 06/22/17 06/23/17 Range/Units 17:11 20:49 02:33 RBC (4.30-5.90) m/uL Hgb (13.0-17.5) gm/dL Hct (39.0-53.0) % MCHC (31.0-37.0) g/dL Plt Count (150-450) k/uL Sodium (137-145) mmol/L Potassium (3.5-5.1) mmol/L Chloride (98-107) mmol/L Carbon Dioxide (22-30) mmol/L Glucose (74-99) mg/dL POC Glucose (mg/dL) 239 H 285 H 294 H (75-99) mg/dL Calcium (8.4-10.2) mg/dL Total Bilirubin (0.2-1.3) mg/dL Total Protein (6.3-8.2) g/dL Albumin (3.5-5.0) g/dL 06/23/17 06/23/17 06/23/17 Range/Units 07:07 08:07 08:07 RBC 2.90 L (4.30-5.90) m/uL Hgb 8.1 L (13.0-17.5) gm/dL Hct 26.3 L (39.0-53.0) % MCHC 30.7 L (31.0-37.0) g/dL Plt Count 492 H (150-450) k/uL Sodium 132 L (137-145) mmol/L Potassium 5.4 H (3.5-5.1) mmol/L Chloride 110 H (98-107) mmol/L Carbon Dioxide 18 L (22-30) mmol/L Glucose 200 H (74-99) mg/dL POC Glucose (mg/dL) 195 H (75-99) mg/dL Calcium 8.1 L (8.4-10.2) mg/dL Total Bilirubin <0.1 L (0.2-1.3) mg/dL Total Protein 4.7 L (6.3-8.2) g/dL Albumin 2.1 L (3.5-5.0) g/dL 06/23/17 Range/Units 12:11 RBC (4.30-5.90) m/uL Hgb (13.0-17.5) gm/dL Hct (39.0-53.0) % MCHC (31.0-37.0) g/dL Plt Count (150-450) k/uL Sodium (137-145) mmol/L Potassium (3.5-5.1) mmol/L Chloride (98-107) mmol/L Carbon Dioxide (22-30) mmol/L Glucose (74-99) mg/dL POC Glucose (mg/dL) 269 H (75-99) mg/dL Calcium (8.4-10.2) mg/dL Total Bilirubin (0.2-1.3) mg/dL Total Protein (6.3-8.2) g/dL Albumin (3.5-5.0) g/dL Microbiology - Last 24 Hours (Table) 06/20/17 14:20 Urine Culture - Final Urine,Voided Karina albicans 06/20/17 14:10 Gram Stain - Preliminary Buttock Wound Culture - Preliminary Klebsiella pneumoniae Methicillin resist S. aureus 06/20/17 14:10 Blood Culture - Preliminary Blood No Growth after 48 hours Assessment and Plan Plan: Impression: #1 Diabetic ketoacidosis, recovered. #2 Altered mental status secondary to above, recovered. #3 Stage III decubitus ulcer of the buttock, wound culture positive for MRSA and Klebsiella pneumoniae. #4 Acute exacerbation of chronic obstructive pulmonary disease. #5 Chronic and ongoing tobacco dependence. #6 History of hepatitis C. #7 Insulin-dependent diabetes mellitus. #8 Peripheral vascular disease with history of bilateral [id number] amputations. #9 Poor overall functional performance pacing above-mentioned multiple comorbidities. Plan: The patient was seen and evaluated by Dr. Albarran. We'll go ahead and decrease the patient's IV Solu-Medrol. We'll start prednisone taper tomorrow. He is currently on vancomycin and Merrem. He is again educated regarding the importance of medication compliance in the outpatient setting. We'll continue to follow.
[2017-06-23 16:34] LABS: Glucose,Whole Blood 338 mg/dL (75-99)
[2017-06-23] MEDS ORDERED: HEPARIN SODIUM,PORCINE 5,000 UNIT/ML 1 ML VIAL SQ SCH (21:00)
[2017-06-23 21:17] LABS: Glucose,Whole Blood 376 mg/dL (75-99)
[2017-06-23] MEDS: ATORVASTATIN 40 MG TAB PO SCH (22:06)
[2017-06-23] MEDS: INSULIN GLARGINE 100 UNIT/ML 10 ML VIAL SQ SCH (22:07)
[2017-06-23] MEDS ORDERED: QUEtiapine 200 MG TAB PO SCH (22:45)
--- NOTE | 2017-06-23 23:31 | P.PN ---
Subjective Principal diagnosis: sepsis, dka 56-year-old male who has a long-standing history of medical noncompliance presents to emergency center not feeling well. Deidre Singer change in his status. Became very weak. At presentation was found to again have evidence of diabetic ketoacidosis with a blood sugar of 1200. The patient was admitted to the intensive care unit and with resuscitation is improving. At this time is denying new fevers chills or rigors or sweats but is certainly very ill and weak at this time. Has multiple large skin pressure ulcerations which will be addressed at this time. Feeling much better today. More awake and alert. His blood sugars improved. Understands that he is continuing to fail as far as his overall health. Agitated about current dose of methadone Objective - Vital Signs Vital signs: Vital Signs Temp 97.8 F 06/23/17 14:34 Pulse 99 06/23/17 14:34 Resp 18 06/23/17 14:34 BP 144/75 06/23/17 14:34 Pulse Ox 96 06/23/17 14:34 Intake & Output 06/23/17 06/23/17 06/24/17 06:59 18:59 06:59 Intake Total 125 Output Total 1400 900 Balance -1275 -900 Intake: Intake, IV Titration 125 Amount Vancomycin 1,000 mg In 125 Sodium Chloride 0.9% 250 ml @ 125 mls/hr IVPB ONCE ONE Rx#:[id number] Output: Urine 1400 900 Other: Voiding Method Indwelling Catheter Indwelling Catheter - Exam his is a 56-year-old emaciated male. HEENT: Head is atraumatic, normocephalic. Pupils equal, round. Sclerae is anicteric. Mucous membranes of the mouth are dry. Thrush is noted. Dentition is in poor order. NECK: Supple. No JVD. No lymphadenopathy. No thyromegaly. LUNGS: Coarse sounds bilaterally with poor inspiratory effort. No intercostal retractions. HEART: Regular rate and rhythm. No murmur. ABDOMEN: Soft. Bowel sounds are present. No masses. No tenderness. EXTREMITIES: Bilateral lower extremity amputations noted. Evidence of the open ulceration to the right lateral residual limb. Skin: Please refer to the nursing photography for the extensive buttocks coccyx trochanteric and right residual limb ulcerations. For the overall measurements. The do appear to be necrotic with some infection. NEUROLOGICAL patient is now awake alert oriented to person place and time but agitated - Labs CBC & Chem 7: 06/23/17 08:07 06/23/17 08:07 Labs: Abnormal Lab Results - Last 24 Hours (Table) 06/23/17 06/23/17 06/23/17 Range/Units 02:33 07:07 08:07 RBC 2.90 L (4.30-5.90) m/uL Hgb 8.1 L (13.0-17.5) gm/dL Hct 26.3 L (39.0-53.0) % MCHC 30.7 L (31.0-37.0) g/dL Plt Count 492 H (150-450) k/uL Sodium (137-145) mmol/L Potassium (3.5-5.1) mmol/L Chloride (98-107) mmol/L Carbon Dioxide (22-30) mmol/L Glucose (74-99) mg/dL POC Glucose (mg/dL) 294 H 195 H (75-99) mg/dL Calcium (8.4-10.2) mg/dL Total Bilirubin (0.2-1.3) mg/dL Total Protein (6.3-8.2) g/dL Albumin (3.5-5.0) g/dL 06/23/17 06/23/17 06/23/17 Range/Units 08:07 12:11 16:32 RBC (4.30-5.90) m/uL Hgb (13.0-17.5) gm/dL Hct (39.0-53.0) % MCHC (31.0-37.0) g/dL Plt Count (150-450) k/uL Sodium 132 L (137-145) mmol/L Potassium 5.4 H (3.5-5.1) mmol/L Chloride 110 H (98-107) mmol/L Carbon Dioxide 18 L (22-30) mmol/L Glucose 200 H (74-99) mg/dL POC Glucose (mg/dL) 269 H 338 H (75-99) mg/dL Calcium 8.1 L (8.4-10.2) mg/dL Total Bilirubin <0.1 L (0.2-1.3) mg/dL Total Protein 4.7 L (6.3-8.2) g/dL Albumin 2.1 L (3.5-5.0) g/dL 06/23/17 Range/Units 21:15 RBC (4.30-5.90) m/uL Hgb (13.0-17.5) gm/dL Hct (39.0-53.0) % MCHC (31.0-37.0) g/dL Plt Count (150-450) k/uL Sodium (137-145) mmol/L Potassium (3.5-5.1) mmol/L Chloride (98-107) mmol/L Carbon Dioxide (22-30) mmol/L Glucose (74-99) mg/dL POC Glucose (mg/dL) 376 H (75-99) mg/dL Calcium (8.4-10.2) mg/dL Total Bilirubin (0.2-1.3) mg/dL Total Protein (6.3-8.2) g/dL Albumin (3.5-5.0) g/dL Microbiology - Last 24 Hours (Table) 06/20/17 14:10 Gram Stain - Final Buttock Wound Culture - Final Klebsiella pneumoniae Methicillin resist S. aureus Methicillin resist S. aureus#2 06/20/17 14:10 Blood Culture - Preliminary Blood No Growth after 72 hours 06/20/17 14:20 Urine Culture - Final Urine,Voided Karina albicans Laboratory Results WBC 7.0 k/uL (3.8-10.6) 06/23/17 08:07 RBC 2.90 m/uL (4.30-5.90) L 06/23/17 08:07 Hgb 8.1 gm/dL (13.0-17.5) L 06/23/17 08:07 Hct 26.3 % (39.0-53.0) L 06/23/17 08:07 MCV 90.6 fL (80.0-100.0) 06/23/17 08:07 MCH 27.8 pg (25.0-35.0) 06/23/17 08:07 MCHC 30.7 g/dL (31.0-37.0) L 06/23/17 08:07 RDW 15.0 % (11.5-15.5) 06/23/17 08:07 Plt Count 492 k/uL (150-450) H 06/23/17 08:07 Neutrophils % 69 % 06/23/17 08:07 Lymphocytes % 23 % 06/23/17 08:07 Monocytes % 3 % 06/23/17 08:07 Eosinophils % 4 % 06/23/17 08:07 Basophils % 0 % 06/23/17 08:07 Neutrophils # 4.8 k/uL (1.3-7.7) 06/23/17 08:07 Lymphocytes # 1.6 k/uL (1.0-4.8) 06/23/17 08:07 Monocytes # 0.2 k/uL (0-1.0) 06/23/17 08:07 Eosinophils # 0.3 k/uL (0-0.7) 06/23/17 08:07 Basophils # 0.0 k/uL (0-0.2) 06/23/17 08:07 Manual Slide Review Performed 06/23/17 08:07 Hypochromasia Moderate 06/23/17 08:07 Poikilocytosis (manual Present 06/23/17 08:07 Macrocytosis Slight 06/20/17 14:10 PT 10.4 sec (9.0-12.0) 06/20/17 14:10 INR 1.0 (<1.2) 06/20/17 14:10 APTT 22.8 sec (22.0-30.0) 06/20/17 14:10 Sodium 132 mmol/L (137-145) L 06/23/17 08:07 Potassium 5.4 mmol/L (3.5-5.1) H 06/23/17 08:07 Chloride 110 mmol/L (98-107) H 06/23/17 08:07 Carbon Dioxide 18 mmol/L (22-30) L 06/23/17 08:07 Anion Gap 4 mmol/L 06/23/17 08:07 BUN 20 mg/dL (9-20) 06/23/17 08:07 Creatinine 0.70 mg/dL (0.66-1.25) 06/23/17 08:07 Est GFR (MDRD) Af Amer >60 (>60 ml/min/1.73 sqM) 06/23/17 08:07 Est GFR (MDRD) Non-Af >60 (>60 ml/min/1.73 sqM) 06/23/17 08:07 Glucose 200 mg/dL (74-99) H 06/23/17 08:07 POC Glucose (mg/dL) 376 mg/dL (75-99) H 06/23/17 21:15 POC Glu Manager [employer] Safety Gladys Walker 06/23/17 21:[address] Glu mg/dL 367 mg/dL 06/21/17 00:30 Hemoglobin A1c 14.4 % (4.2-6.1) H 06/21/17 00:30 Plasma Lactic Acid Ayo 1.6 mmol/L (0.7-2.0) 06/21/17 00:30 Calcium 8.1 mg/dL (8.4-10.2) L 06/23/17 08:07 Phosphorus 2.8 mg/dL (2.5-4.5) 06/23/17 08:07 Magnesium 1.9 mg/dL (1.6-2.3) 06/23/17 08:07 Total Bilirubin <0.1 mg/dL (0.2-1.3) L 06/23/17 08:07 AST 20 U/L (17-59) 06/23/17 08:07 ALT 35 U/L (21-72) 06/23/17 08:07 Alkaline Phosphatase 82 U/L (38-126) 06/23/17 08:07 Ammonia <9 umol/L (<30) 06/20/17 14:10 Total Creatine Kinase 191 U/L (55-170) H 06/20/17 14:10 CK-MB (CK-2) 6.1 ng/mL (0.0-2.4) H* 06/20/17 14:10 CK-MB (CK-2) Rel Index 3.2 06/20/17 14:10 Troponin I <0.012 ng/mL (0.000-0.034) 06/20/17 14:10 Total Protein 4.7 g/dL (6.3-8.2) L 06/23/17 08:07 Albumin 2.1 g/dL (3.5-5.0) L 06/23/17 08:07 Urine Color Colorless 06/20/17 14:20 Urine Appearance Cloudy (Clear) 06/20/17 14:20 Urine pH 6.5 (5.0-8.0) 06/20/17 14:20 Ur Specific [place] 1.017 (1.001-1.035) 06/20/17 14:20 Urine Protein Negative (Negative) 06/20/17 14:20 Urine Glucose (UA) 4+ (Negative) H 06/20/17 14:20 Urine Ketones Negative (Negative) 06/20/17 14:20 Urine Blood Trace (Negative) H 06/20/17 14:20 Urine Nitrite Negative (Negative) 06/20/17 14:20 Urine Bilirubin Negative (Negative) 06/20/17 14:20 Urine Urobilinogen <2.0 mg/dL (<2.0) 06/20/17 14:20 Ur Leukocyte Esterase Large (Negative) H 06/20/17 14:20 Urine RBC 2 /hpf (0-5) 06/20/17 14:20 Urine WBC >182 /hpf (0-5) H 06/20/17 14:20 Urine WBC Clumps Few /hpf (None) H 06/20/17 14:20 Urine Yeast (Budding) Few /hpf (None) H 06/20/17 14:20 Acetone, Qual Positive (Negative) 06/20/17 14:10 Microbiology 06/20/17 14:10 Buttock Gram Stain - Final 06/20/17 14:10 Buttock Wound Culture - Final Klebsiella pneumoniae Methicillin resist S. aureus Methicillin resist S. aureus#2 06/20/17 14:10 Blood Blood Culture - Preliminary No Growth after 72 hours 06/20/17 14:20 Urine,Voided Urine Culture - Final Karina albicans Assessment and Plan (1) Diabetic ketoacidosis Status: Acute (2) Decubitus ulcer of sacral region, stage 4 Narrative/Plan: 56-year-old male presents to the emergency center if not feeling well. He was trying to take care of himself at home. When this failed he eventually came to the emergency center and was not evidence of a blood sugar of 1200. Does not take his blood sugars at home. It is noted in the past his chronic medical noncompliance. At admission the patient was profoundly ill and hypotensive and dehydrated and responded well to fluids. Concerns for sepsis because of the extensive ulcerations as noted. Local wound care is provided with the silver alginate to the large buttocks ulcerations foam to the left trochanteric area and Santyl to the other regions. Antibiotic therapy is with vancomycin and meropenem for the likely isolated pathogens. Blood culture negative so far The patient has a very complex psychosocial status. Several times in the past we've arranged for him to go to extended care facility to receive antibiotic therapy only to sign himself out shortly thereafter. He has a complex history that makes placement into the extended care facilities difficult. He was sent to a facility in [place] who accept him willingly and he signed out from that place also He will not have the opportunity for outpatient intravenous antibiotic therapy and his discharge Continue aggressive wound care until discharge then follow in [facility] Status: Acute
[2017-06-24 03:07] LABS: Glucose,Whole Blood 299 mg/dL (75-99)
[2017-06-24] MEDS: SODIUM CHLORIDE 0.9% 1,000 ML IV SCH ×3 (03:22→17:33)
[2017-06-24] MEDS: INSULIN LISPRO (humaLOG) 300 UNIT/3 ML VIAL SQ SCH ×5 (03:23→21:13)
[2017-06-24] MEDS ORDERED: VANCOMYCIN TROUGH DUE 1 EACH MISC MISCELLANE ONE (05:00)
[2017-06-24 05:39] LABS: Basophils % (A) 0 %; CH 28.5; CHCM 31.3; Eosinophils # (A) 0.3 k/uL (0-0.7); Eosinophils % (A) 5 %; HCT 26.3 % (39.0-53.0); HDW 2.48; HGB 7.9 gm/dL (13.0-17.5); Hypochromasia Slight; Luc # (Auto) 0.08; Luc % (Auto) 1; Lymphocytes # (A) 1.4 k/uL (1.0-4.8); Lymphocytes % (A) 21 %; MCH 27.4 pg (25.0-35.0); MCHC 30.1 g/dL (31.0-37.0); MCV 91.1 fL (80.0-100.0); Mean Platelet Volume 7.8; Monocytes # (A) 0.2 k/uL (0-1.0); Monocytes % (A) 3 %; Neutrophils # (A) 4.6 k/uL (1.3-7.7); Neutrophils % (A) 70 %; RBC 2.89 m/uL (4.30-5.90); RDW 15.7 % (11.5-15.5); WBC 6.6 k/uL (3.8-10.6)
[2017-06-24 05:57] LABS: ALT 35 U/L (21-72); AST 18 U/L (17-59); Alkaline Phosphatase 75 U/L (38-126); Anion Gap 6 mmol/L; Blood Urea Nitrogen 22 mg/dL (9-20); Calcium 8.1 mg/dL (8.4-10.2); Carbon Dioxide 21 mmol/L (22-30); Chloride 106 mmol/L (98-107); Glucose 254 mg/dL (74-99); Magnesium 1.7 mg/dL (1.6-2.3); Non-African American GFR(MDRD) >60 (>60 ml/min/1.73 sqM); Phosphorous 2.5 mg/dL (2.5-4.5); Potassium 4.8 mmol/L (3.5-5.1); Sodium 133 mmol/L (137-145); Total Bilirubin <0.1 mg/dL (0.2-1.3); Total Protein 4.7 g/dL (6.3-8.2)
[2017-06-24] MEDS: VANCOMYCIN 750 MG in SODIUM CHLORIDE 0.9% 250 ML IVPB SCH (06:05)
[2017-06-24 07:43] LABS: Glucose,Whole Blood 326 mg/dL (75-99)
[2017-06-24] MEDS: DRONABINOL 2.5 MG CAP PO SCH ×2 (08:08→17:34)
[2017-06-24] MEDS: CARVEDILOL 6.25 MG TAB PO SCH ×2 (08:08→17:34)
[2017-06-24] MEDS: ASPIRIN 81 MG CHEW PO SCH (08:10)
[2017-06-24] MEDS: PANTOPRAZOLE 40 MG TABLET PO SCH (08:10)
[2017-06-24] MEDS: cefTRIAXone 2,000 MG in SODIUM CHLORIDE 0.9% 100 ML IVPB SCH (08:10)
[2017-06-24] MEDS: GABAPENTIN 300 MG CAP PO SCH ×3 (08:13→21:14)
[2017-06-24] MEDS: DULoxetine HCL 30 MG CAPSULE.DR PO SCH ×2 (08:13→21:12)
[2017-06-24] MEDS: hydrALAZINE HCL 50 MG TAB PO SCH ×3 (08:14→21:17)
[2017-06-24] MEDS: METHADONE 5 MG TAB PO SCH ×3 (08:15→21:17)
[2017-06-24] MEDS: LOSARTAN 25 MG TAB PO SCH (08:15)
[2017-06-24] MEDS: VARENICLINE 0.5 MG TAB PO SCH (08:16)
[2017-06-24] MEDS: COLLAGENASE 250 UNIT/GM OINTMENT 30 GM TUBE TOPICAL SCH (10:07)
--- NOTE | 2017-06-24 11:06 | P.PN ---
Subjective Principal diagnosis: 56-year-old male seen and examined this morning on rounds with Dr. Chong. Patient continues to complain of pain in coccyx area. Patient received his Seroquel and methadone last night and per nursing the patient was digging into his rectum with his fingers and placing pieces of stool on his bedside table during the night. The patient's appetite remains good and the patient ate his breakfast without any complaints of nausea or vomiting. His urinary catheter was discontinued yesterday and patient has been voiding without difficulty. He denies shortness of breath or chest pain. Discharge planning remains ongoing. Social work states that patient is an eligible to go to an ECF because he has no more days left on his insurance and patient can go home with home care. Due to the patient's inability to care for himself adequately and his multiple hospital admissions, Dr. Chong would like the patient to have a legal guardian appointed. Discussed this with social work. Psych consult will be placed to help determine competency. Objective - Vital Signs Vital signs: Vital Signs Temp 99.1 F 06/24/17 07:00 Pulse 93 06/24/17 07:00 Resp 16 06/24/17 07:00 BP 154/88 06/24/17 07:00 Pulse Ox 95 06/24/17 07:00 Intake & Output 06/23/17 06/24/17 06/24/17 18:59 06:59 18:59 Intake Total 855 Output Total 900 750 700 Balance -900 105 -700 Intake: Intake, IV Titration 855 Amount Meropenem 1 gm In Sodium 100 Chloride 0.9% 100 ml @ 100 mls/hr IVPB Q8HR ROSA Rx#:[id number] Sodium Chloride 0.9% 1, 80 000 ml @ 20 mls/hr IV . Q24H ROSA Rx#:[id number] Sodium Chloride 0.9% 1, 450 000 ml @ 75 mls/hr IV . [id number] ROSA Rx#:[id number] Vancomycin 750 mg In 125 Sodium Chloride 0.9% 250 ml @ 125 mls/hr IVPB Q12H ROSA Rx#:[id number] cefTRIAXone 2,000 mg In 100 Sodium Chloride 0.9% 100 ml @ 100 mls/hr IVPB Q24HR ROSA Rx#:[id number] Output: Urine 900 750 700 Other: Voiding Method Indwelling Catheter Urinal - Exam GENERAL: Alert and oriented. Appears in no acute distress. Pleasant. RESPIRATORY: Lungs clear bilaterally. No use of accessory muscles. Patient maintaining oxygen saturation greater than 92%. CARDIOVASCULAR: S1 and S2 noted. No murmurs auscultated. No JVD noted. EXTREMITIES: No edema noted. Patient with bilateral [id number] amputations. ABDOMEN: No distention noted. Abdomen soft and round. Normal active bowel sounds auscultated 4 quadrants. No pain or tenderness noted upon palpation. Skin: Patient with stage III ulcer to coccyx. Patient also has wound on right knee stump and posterior aspect of scrotum. - Labs CBC & Chem 7: 06/24/17 04:54 06/24/17 04:54 Labs: Abnormal Lab Results - Last 24 Hours (Table) 06/23/17 06/23/17 06/23/17 Range/Units 08:07 08:07 12:11 RBC 2.90 L (4.30-5.90) m/uL Hgb 8.1 L (13.0-17.5) gm/dL Hct 26.3 L (39.0-53.0) % MCHC 30.7 L (31.0-37.0) g/dL RDW (11.5-15.5) % Plt Count 492 H (150-450) k/uL Sodium 132 L (137-145) mmol/L Potassium 5.4 H (3.5-5.1) mmol/L Chloride 110 H (98-107) mmol/L Carbon Dioxide 18 L (22-30) mmol/L BUN (9-20) mg/dL Creatinine (0.66-1.25) mg/dL Glucose 200 H (74-99) mg/dL POC Glucose (mg/dL) 269 H (75-99) mg/dL Calcium 8.1 L (8.4-10.2) mg/dL Total Bilirubin <0.1 L (0.2-1.3) mg/dL Total Protein 4.7 L (6.3-8.2) g/dL Albumin 2.1 L (3.5-5.0) g/dL 06/23/17 06/23/17 06/24/17 Range/Units 16:32 21:15 02:55 RBC (4.30-5.90) m/uL Hgb (13.0-17.5) gm/dL Hct (39.0-53.0) % MCHC (31.0-37.0) g/dL RDW (11.5-15.5) % Plt Count (150-450) k/uL Sodium (137-145) mmol/L Potassium (3.5-5.1) mmol/L Chloride (98-107) mmol/L Carbon Dioxide (22-30) mmol/L BUN (9-20) mg/dL Creatinine (0.66-1.25) mg/dL Glucose (74-99) mg/dL POC Glucose (mg/dL) 338 H 376 H 299 H (75-99) mg/dL Calcium (8.4-10.2) mg/dL Total Bilirubin (0.2-1.3) mg/dL Total Protein (6.3-8.2) g/dL Albumin (3.5-5.0) g/dL 06/24/17 06/24/17 06/24/17 Range/Units 04:54 04:54 07:26 RBC 2.89 L (4.30-5.90) m/uL Hgb 7.9 L (13.0-17.5) gm/dL Hct 26.3 L (39.0-53.0) % MCHC 30.1 L (31.0-37.0) g/dL RDW 15.7 H (11.5-15.5) % Plt Count (150-450) k/uL Sodium 133 L (137-145) mmol/L Potassium (3.5-5.1) mmol/L Chloride (98-107) mmol/L Carbon Dioxide 21 L (22-30) mmol/L BUN 22 H (9-20) mg/dL Creatinine 0.65 L (0.66-1.25) mg/dL Glucose 254 H (74-99) mg/dL POC Glucose (mg/dL) 326 H (75-99) mg/dL Calcium 8.1 L (8.4-10.2) mg/dL Total Bilirubin <0.1 L (0.2-1.3) mg/dL Total Protein 4.7 L (6.3-8.2) g/dL Albumin 2.1 L (3.5-5.0) g/dL Microbiology - Last 24 Hours (Table) 06/20/17 14:10 Gram Stain - Final Buttock Wound Culture - Final Klebsiella pneumoniae Methicillin resist S. aureus Methicillin resist S. aureus#2 06/20/17 14:10 Blood Culture - Preliminary Blood No Growth after 72 hours Assessment and Plan Plan: ASSESSMENT: 1. Diabetic ketoacidosis, present on admission, resolved 2. Hyperglycemia due to uncontrolled type 2 diabetes mellitus 3. History of bilateral above the knee amputation, due to uncontrolled diabetes 4. Stage III decubitus ulcer on buttocks/coccyx area, present on admission 5. 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 Stage 2 pressure ulcer to left hip, present on admission 7. Stage 2 pressure ulcer to mid-back, present on admission, progressed to stage III PLAN: -Patient needs a specialty bed/air mattress. Spoke with nursing who will obtain a specialty bed for patient. -Spoke with case management who will order patient a hospital bed/air mattress for patient's home upon discharge. -Spoke with social work regarding the need for patient to have a legal guardian. Awaiting further input from social media sr strategy manager -Psych consult placed to help determine competency. -Continue to monitor blood sugars and address as appropriate. Continue with sliding scale and Lantus at bedtime. -Monitor vital signs and address as appropriate -Monitor labs -DVT prophylaxis not needed per Dr. Chong. Patient with hx of Bilateral AKA. -GI prophylaxis-patient receiving Protonix 40 mg daily. -Dr. Becerra on consult regarding nonhealing decubitus ulcer. Recommending Vanco and Meropenem per consultation note. Blood cultures are negative at the 48 hour juan pablo. Urine culture from 06/20/2017 shows Karina albicans. Appreciate any input and recommendations. -Continue methadone 5 mg 3 times a day The above impression and plan of care have been discussed and directed by signing physician. She Rainey, nurse practitioner, acting as scribe for signing physician.
[2017-06-24 12:53] LABS: Glucose,Whole Blood 309 mg/dL (75-99)
--- NOTE | 2017-06-24 12:56 | P.PN ---
Subjective Principal diagnosis: Diabetic ketoacidosis with mental status changes This is a pleasant 56-year-old gentleman who was admitted with altered mental status and was found to have diabetic ketoacidosis. He has admitted to some issues with noncompliance. He is seen again today in follow-up on the regular medical floor. He is awake and alert and oriented. He denies any worsening shortness of breath, cough or congestion. He is eating better and blood glucose level 200. He is currently on Lantus and Humalog. The patient is seen again today 06/24/2017 in follow-up on the regular medical floor. He is awake and alert in no acute distress. He is eating better. Blood glucose remains high at 254. Carb 21, anion gap 6. He remains anemic at 7.9 hemoglobin. He has no pulmonary complaints. He is maintaining O2 saturations in the mid 90s on room air. He is afebrile. Objective - Vital Signs Vital signs: Vital Signs Temp 99.1 F 06/24/17 07:00 Pulse 93 06/24/17 07:00 Resp 16 06/24/17 07:00 BP 154/88 06/24/17 07:00 Pulse Ox 95 06/24/17 07:00 Intake & Output 06/23/17 06/24/17 06/24/17 18:59 06:59 18:59 Intake Total 855 Output Total 900 750 700 Balance -900 105 -700 Intake: Intake, IV Titration 855 Amount Meropenem 1 gm In Sodium 100 Chloride 0.9% 100 ml @ 100 mls/hr IVPB Q8HR ROSA Rx#:[id number] Sodium Chloride 0.9% 1, 80 000 ml @ 20 mls/hr IV . Q24H ROSA Rx#:[id number] Sodium Chloride 0.9% 1, 450 000 ml @ 75 mls/hr IV . [id number] ROSA Rx#:[id number] Vancomycin 750 mg In 125 Sodium Chloride 0.9% 250 ml @ 125 mls/hr IVPB Q12H ROSA Rx#:[id number] cefTRIAXone 2,000 mg In 100 Sodium Chloride 0.9% 100 ml @ 100 mls/hr IVPB Q24HR ROSA Rx#:[id number] Output: Urine 900 750 700 Other: Voiding Method Indwelling Catheter Urinal # Voids 1 # Bowel Movements 1 - Exam Frail, cachectic. No acute distress, oriented 3. HEENT examination is grossly unremarkable. Mucous membranes are moist. No oral lesions. Neck supple. Full range of motion. No adenopathy or thyromegaly. Cardiovascular examination reveals regular rhythm rate. S1-S2 normal. No S3- S4. No distinct murmur. Lungs clear breath sounds equal. No wheezes rhonchi or crackles. Abdomen soft bowel sounds are heard. Extremities are intact intact except for the lower extremities which have been previously amputated. Skin without rash. Neurologic examination is nonfocal. - Labs CBC & Chem 7: 06/24/17 04:54 06/24/17 04:54 Labs: Abnormal Lab Results - Last 24 Hours (Table) 06/23/17 06/23/17 06/24/17 Range/Units 16:32 21:15 02:55 RBC (4.30-5.90) m/uL Hgb (13.0-17.5) gm/dL Hct (39.0-53.0) % MCHC (31.0-37.0) g/dL RDW (11.5-15.5) % Sodium (137-145) mmol/L Carbon Dioxide (22-30) mmol/L BUN (9-20) mg/dL Creatinine (0.66-1.25) mg/dL Glucose (74-99) mg/dL POC Glucose (mg/dL) 338 H 376 H 299 H (75-99) mg/dL Calcium (8.4-10.2) mg/dL Total Bilirubin (0.2-1.3) mg/dL Total Protein (6.3-8.2) g/dL Albumin (3.5-5.0) g/dL 06/24/17 06/24/17 06/24/17 Range/Units 04:54 04:54 07:26 RBC 2.89 L (4.30-5.90) m/uL Hgb 7.9 L (13.0-17.5) gm/dL Hct 26.3 L (39.0-53.0) % MCHC 30.1 L (31.0-37.0) g/dL RDW 15.7 H (11.5-15.5) % Sodium 133 L (137-145) mmol/L Carbon Dioxide 21 L (22-30) mmol/L BUN 22 H (9-20) mg/dL Creatinine 0.65 L (0.66-1.25) mg/dL Glucose 254 H (74-99) mg/dL POC Glucose (mg/dL) 326 H (75-99) mg/dL Calcium 8.1 L (8.4-10.2) mg/dL Total Bilirubin <0.1 L (0.2-1.3) mg/dL Total Protein 4.7 L (6.3-8.2) g/dL Albumin 2.1 L (3.5-5.0) g/dL Microbiology - Last 24 Hours (Table) 06/20/17 14:10 Gram Stain - Final Buttock Wound Culture - Final Klebsiella pneumoniae Methicillin resist S. aureus Methicillin resist S. aureus#2 06/20/17 14:10 Blood Culture - Preliminary Blood No Growth after 72 hours Assessment and Plan Plan: Impression: #1 Diabetic ketoacidosis, recovered. #2 Altered mental status secondary to above, recovered. #3 Stage III decubitus ulcer of the buttock, wound culture positive for MRSA and Klebsiella pneumoniae. #4 Acute exacerbation of chronic obstructive pulmonary disease. #5 Chronic and ongoing tobacco dependence. #6 History of hepatitis C. #7 Insulin-dependent diabetes mellitus. #8 Peripheral vascular disease with history of bilateral uvkrw-[id number] amputations. #9 Poor overall functional performance pacing above-mentioned multiple comorbidities. Plan: The patient was seen and evaluated by Dr. Albarran. He remains on vancomycin and Merrem. He is again educated regarding the importance of medication compliance in the outpatient setting. He is stable from the pulmonary and critical care standpoint. We'll follow the patient on as-needed basis.
[2017-06-24] MEDS: MULTIVITAMINS, THERA 1 EACH TAB PO SCH (13:43)
--- NOTE | 2017-06-24 14:29 | P.PN ---
Progress Note - Text I attempted to see the patient, he was sedated and unable to fully cooperate with an interview. patient has been taking seroquel 200mg qhs and cymbalta 30mg bid, he is overly sedated and will decrease his seroquel to 50mg qhs, unsure why he is so sedated on this when he has been taking it for quite some time, perhaps due to his DKA and UTI. Will return tomorrow to assess the patient.
[2017-06-24 17:11] LABS: Glucose,Whole Blood 161 mg/dL (75-99)
[2017-06-24] MEDS: VANCOMYCIN 1,000 MG in SODIUM CHLORIDE 0.9% 250 ML IVPB SCH (17:35)
[2017-06-24 20:41] LABS: Glucose,Whole Blood 141 mg/dL (75-99)
[2017-06-24] MEDS ORDERED: QUEtiapine 50 MG TAB PO SCH (21:00)
--- NOTE | 2017-06-24 21:02 | P.PN ---
Subjective Principal diagnosis: sepsis, dka 56-year-old male who has a long-standing history of medical noncompliance presents to emergency center not feeling well. Deidre Singer change in his status. Became very weak. At presentation was found to again have evidence of diabetic ketoacidosis with a blood sugar of 1200. The patient was admitted to the intensive care unit and with resuscitation is improving. At this time is denying new fevers chills or rigors or sweats but is certainly very ill and weak at this time. Has multiple large skin pressure ulcerations which will be addressed at this time. Feeling much better today. More awake and alert. His blood sugars improved. Understands that he is continuing to fail as far as his overall health. Less agitated today. The primary physician has asked for a hearing for patient' s competence Objective - Vital Signs Vital signs: Vital Signs Temp 95.9 F L 06/24/17 15:00 Pulse 80 06/24/17 15:00 Resp 16 06/24/17 15:00 BP 109/67 06/24/17 15:00 Pulse Ox 94 L 06/24/17 15:00 Intake & Output 06/24/17 06/24/17 06/25/17 06:59 18:59 06:59 Intake Total 855 Output Total 750 700 Balance 105 -700 Intake: Intake, IV Titration 855 Amount Meropenem 1 gm In Sodium 100 Chloride 0.9% 100 ml @ 100 mls/hr IVPB Q8HR ROSA Rx#:[id number] Sodium Chloride 0.9% 1, 80 000 ml @ 20 mls/hr IV . Q24H ROSA Rx#:[id number] Sodium Chloride 0.9% 1, 450 000 ml @ 75 mls/hr IV . [id number] ROSA Rx#:[id number] Vancomycin 750 mg In 125 Sodium Chloride 0.9% 250 ml @ 125 mls/hr IVPB Q12H ROSA Rx#:[id number] cefTRIAXone 2,000 mg In 100 Sodium Chloride 0.9% 100 ml @ 100 mls/hr IVPB Q24HR ROSA Rx#:[id number] Output: Urine 750 700 Other: Voiding Method Urinal # Voids 3 # Bowel Movements 1 - Exam his is a 56-year-old emaciated male. HEENT: Head is atraumatic, normocephalic. Pupils equal, round. Sclerae is anicteric. Mucous membranes of the mouth are dry. Thrush is noted. Dentition is in poor order. NECK: Supple. No JVD. No lymphadenopathy. No thyromegaly. LUNGS: Coarse sounds bilaterally with poor inspiratory effort. No intercostal retractions. HEART: Regular rate and rhythm. No murmur. ABDOMEN: Soft. Bowel sounds are present. No masses. No tenderness. EXTREMITIES: Bilateral lower extremity amputations noted. Evidence of the open ulceration to the right lateral residual limb. Skin: Please refer to the nursing photography for the extensive buttocks coccyx trochanteric and right residual limb ulcerations. For the overall measurements. The do appear to be necrotic with some infection. NEUROLOGICAL patient is now awake alert oriented to person place and time less agitated than yesterday. - Labs CBC & Chem 7: 06/24/17 04:54 06/24/17 04:54 Labs: Abnormal Lab Results - Last 24 Hours (Table) 06/23/17 06/24/17 06/24/17 Range/Units 21:15 02:55 04:54 RBC 2.89 L (4.30-5.90) m/uL Hgb 7.9 L (13.0-17.5) gm/dL Hct 26.3 L (39.0-53.0) % MCHC 30.1 L (31.0-37.0) g/dL RDW 15.7 H (11.5-15.5) % Sodium (137-145) mmol/L Carbon Dioxide (22-30) mmol/L BUN (9-20) mg/dL Creatinine (0.66-1.25) mg/dL Glucose (74-99) mg/dL POC Glucose (mg/dL) 376 H 299 H (75-99) mg/dL Calcium (8.4-10.2) mg/dL Total Bilirubin (0.2-1.3) mg/dL Total Protein (6.3-8.2) g/dL Albumin (3.5-5.0) g/dL 06/24/17 06/24/17 06/24/17 Range/Units 04:54 07:26 12:22 RBC (4.30-5.90) m/uL Hgb (13.0-17.5) gm/dL Hct (39.0-53.0) % MCHC (31.0-37.0) g/dL RDW (11.5-15.5) % Sodium 133 L (137-145) mmol/L Carbon Dioxide 21 L (22-30) mmol/L BUN 22 H (9-20) mg/dL Creatinine 0.65 L (0.66-1.25) mg/dL Glucose 254 H (74-99) mg/dL POC Glucose (mg/dL) 326 H 309 H (75-99) mg/dL Calcium 8.1 L (8.4-10.2) mg/dL Total Bilirubin <0.1 L (0.2-1.3) mg/dL Total Protein 4.7 L (6.3-8.2) g/dL Albumin 2.1 L (3.5-5.0) g/dL 06/24/17 06/24/17 Range/Units 17:08 20:39 RBC (4.30-5.90) m/uL Hgb (13.0-17.5) gm/dL Hct (39.0-53.0) % MCHC (31.0-37.0) g/dL RDW (11.5-15.5) % Sodium (137-145) mmol/L Carbon Dioxide (22-30) mmol/L BUN (9-20) mg/dL Creatinine (0.66-1.25) mg/dL Glucose (74-99) mg/dL POC Glucose (mg/dL) 161 H 141 H (75-99) mg/dL Calcium (8.4-10.2) mg/dL Total Bilirubin (0.2-1.3) mg/dL Total Protein (6.3-8.2) g/dL Albumin (3.5-5.0) g/dL Microbiology - Last 24 Hours (Table) 06/20/17 14:10 Blood Culture - Preliminary Blood No Growth after 96 hours 06/20/17 14:10 Gram Stain - Final Buttock Wound Culture - Final Klebsiella pneumoniae Methicillin resist S. aureus Methicillin resist S. aureus#2 Laboratory Results WBC 6.6 k/uL (3.8-10.6) 06/24/17 04:54 RBC 2.89 m/uL (4.30-5.90) L 06/24/17 04:54 Hgb 7.9 gm/dL (13.0-17.5) L 06/24/17 04:54 Hct 26.3 % (39.0-53.0) L 06/24/17 04:54 MCV 91.1 fL (80.0-100.0) 06/24/17 04:54 MCH 27.4 pg (25.0-35.0) 06/24/17 04:54 MCHC 30.1 g/dL (31.0-37.0) L 06/24/17 04:54 RDW 15.7 % (11.5-15.5) H 06/24/17 04:54 Plt Count 450 k/uL (150-450) 06/24/17 04:54 Neutrophils % 70 % 06/24/17 04:54 Lymphocytes % 21 % 06/24/17 04:54 Monocytes % 3 % 06/24/17 04:54 Eosinophils % 5 % 06/24/17 04:54 Basophils % 0 % 06/24/17 04:54 Neutrophils # 4.6 k/uL (1.3-7.7) 06/24/17 04:54 Lymphocytes # 1.4 k/uL (1.0-4.8) 06/24/17 04:54 Monocytes # 0.2 k/uL (0-1.0) 06/24/17 04:54 Eosinophils # 0.3 k/uL (0-0.7) 06/24/17 04:54 Basophils # 0.0 k/uL (0-0.2) 06/24/17 04:54 Manual Slide Review Performed 06/23/17 08:07 Hypochromasia Slight 06/24/17 04:54 Poikilocytosis (manual Present 06/23/17 08:07 Macrocytosis Slight 06/20/17 14:10 PT 10.4 sec (9.0-12.0) 06/20/17 14:10 INR 1.0 (<1.2) 06/20/17 14:10 APTT 22.8 sec (22.0-30.0) 06/20/17 14:10 Sodium 133 mmol/L (137-145) L 06/24/17 04:54 Potassium 4.8 mmol/L (3.5-5.1) 06/24/17 04:54 Chloride 106 mmol/L (98-107) 06/24/17 04:54 Carbon Dioxide 21 mmol/L (22-30) L 06/24/17 04:54 Anion Gap 6 mmol/L 06/24/17 04:54 BUN 22 mg/dL (9-20) H 06/24/17 04:54 Creatinine 0.65 mg/dL (0.66-1.25) L 06/24/17 04:54 Est GFR (MDRD) Af Amer >60 (>60 ml/min/1.73 sqM) 06/24/17 04:54 Est GFR (MDRD) Non-Af >60 (>60 ml/min/1.73 sqM) 06/24/17 04:54 Glucose 254 mg/dL (74-99) H 06/24/17 04:54 POC Glucose (mg/dL) 141 mg/dL (75-99) H 06/24/17 20:39 POC Glu Chief Controller Center ID Gladys Basurto 06/24/17 20:[address] Glu mg/dL 367 mg/dL 06/21/17 00:30 Hemoglobin A1c 14.4 % (4.2-6.1) H 06/21/17 00:30 Plasma Lactic Acid Ayo 1.6 mmol/L (0.7-2.0) 06/21/17 00:30 Calcium 8.1 mg/dL (8.4-10.2) L 06/24/17 04:54 Phosphorus 2.5 mg/dL (2.5-4.5) 06/24/17 04:54 Magnesium 1.7 mg/dL (1.6-2.3) 06/24/17 04:54 Total Bilirubin <0.1 mg/dL (0.2-1.3) L 06/24/17 04:54 AST 18 U/L (17-59) 06/24/17 04:54 ALT 35 U/L (21-72) 06/24/17 04:54 Alkaline Phosphatase 75 U/L (38-126) 06/24/17 04:54 Ammonia <9 umol/L (<30) 06/20/17 14:10 Total Creatine Kinase 191 U/L (55-170) H 06/20/17 14:10 CK-MB (CK-2) 6.1 ng/mL (0.0-2.4) H* 06/20/17 14:10 CK-MB (CK-2) Rel Index 3.2 06/20/17 14:10 Troponin I <0.012 ng/mL (0.000-0.034) 06/20/17 14:10 Total Protein 4.7 g/dL (6.3-8.2) L 06/24/17 04:54 Albumin 2.1 g/dL (3.5-5.0) L 06/24/17 04:54 Urine Color Colorless 06/20/17 14:20 Urine Appearance Cloudy (Clear) 06/20/17 14:20 Urine pH 6.5 (5.0-8.0) 06/20/17 14:20 Ur Specific Blairs 1.017 (1.001-1.035) 06/20/17 14:20 Urine Protein Negative (Negative) 06/20/17 14:20 Urine Glucose (UA) 4+ (Negative) H 06/20/17 14:20 Urine Ketones Negative (Negative) 06/20/17 14:20 Urine Blood Trace (Negative) H 06/20/17 14:20 Urine Nitrite Negative (Negative) 06/20/17 14:20 Urine Bilirubin Negative (Negative) 06/20/17 14:20 Urine Urobilinogen <2.0 mg/dL (<2.0) 06/20/17 14:20 Ur Leukocyte Esterase Large (Negative) H 06/20/17 14:20 Urine RBC 2 /hpf (0-5) 06/20/17 14:20 Urine WBC >182 /hpf (0-5) H 06/20/17 14:20 Urine WBC Clumps Few /hpf (None) H 06/20/17 14:20 Urine Yeast (Budding) Few /hpf (None) H 06/20/17 14:20 Vancomycin Trough 11.4 ug/mL 06/24/17 04:54 Acetone, Qual Positive (Negative) 06/20/17 14:10 Microbiology 06/20/17 14:10 Blood Blood Culture - Preliminary No Growth after 96 hours 06/20/17 14:10 Buttock Gram Stain - Final 06/20/17 14:10 Buttock Wound Culture - Final Klebsiella pneumoniae Methicillin resist S. aureus Methicillin resist S. aureus#2 06/20/17 14:20 Urine,Voided Urine Culture - Final Karina albicans Assessment and Plan (1) Diabetic ketoacidosis Status: Acute (2) Decubitus ulcer of sacral region, stage 4 Narrative/Plan: 56-year-old male presents to the emergency center if not feeling well. He was trying to take care of himself at home. When this failed he eventually came to the emergency center and was not evidence of a blood sugar of 1200. Does not take his blood sugars at home. It is noted in the past his chronic medical noncompliance. At admission the patient was profoundly ill and hypotensive and dehydrated and responded well to fluids. Concerns for sepsis because of the extensive ulcerations as noted. Local wound care is provided with the silver alginate to the large buttocks ulcerations foam to the left trochanteric area and Santyl to the other regions. Antibiotic therapy is with vancomycin and meropenem for the likely isolated pathogens. Blood culture negative so far The patient has a very complex psychosocial status. Several times in the past we've arranged for him to go to extended care facility to receive antibiotic therapy only to sign himself out shortly thereafter. He has a complex history that makes placement into the extended care facilities difficult. He was sent to a facility in [place] who accept him willingly and he signed out from that place also He will not have the opportunity for outpatient intravenous antibiotic therapy and his discharge The wound culture did show evidence of the MRSA as well as of the Klebsiella pneumoniae which are also susceptible to doxycycline, antibiotic therapy is changed to doxycycline 100 mg orally twice per day. This will continue through his follow-up in the wound healing Center where I can also see him. Continue aggressive wound care until discharge then follow in [facility] Status: Acute
[2017-06-24] MEDS: ATORVASTATIN 40 MG TAB PO SCH (21:12)
[2017-06-24] MEDS: INSULIN GLARGINE 100 UNIT/ML 10 ML VIAL SQ SCH (21:12)
[2017-06-25 02:42] LABS: Glucose,Whole Blood 268 mg/dL (75-99)
[2017-06-25] MEDS: INSULIN LISPRO (humaLOG) 300 UNIT/3 ML VIAL SQ SCH ×4 (02:42→17:19)
[2017-06-25] MEDS: VANCOMYCIN 1,000 MG in SODIUM CHLORIDE 0.9% 250 ML IVPB SCH ×3 (05:49→17:45)
[2017-06-25 07:32] LABS: Glucose,Whole Blood 169 mg/dL (75-99)
[2017-06-25 07:34] VITALS: RESP 16
[2017-06-25] MEDS: SODIUM CHLORIDE 0.9% 1,000 ML IV SCH ×2 (08:07→09:14)
[2017-06-25] MEDS: DULoxetine HCL 30 MG CAPSULE.DR PO SCH (08:12)
[2017-06-25] MEDS: GABAPENTIN 300 MG CAP PO SCH ×2 (08:12→16:44)
[2017-06-25] MEDS: hydrALAZINE HCL 50 MG TAB PO SCH ×2 (08:12→16:44)
[2017-06-25] MEDS: DRONABINOL 2.5 MG CAP PO SCH ×2 (08:12→17:19)
[2017-06-25] MEDS: METHADONE 5 MG TAB PO SCH ×2 (08:12→16:43)
[2017-06-25] MEDS: LOSARTAN 25 MG TAB PO SCH (08:12)
[2017-06-25] MEDS: CARVEDILOL 6.25 MG TAB PO SCH ×2 (08:12→17:19)
[2017-06-25] MEDS: VARENICLINE 0.5 MG TAB PO SCH (08:12)
[2017-06-25] MEDS: PANTOPRAZOLE 40 MG TABLET PO SCH (08:13)
[2017-06-25] MEDS: COLLAGENASE 250 UNIT/GM OINTMENT 30 GM TUBE TOPICAL SCH (08:13)
[2017-06-25] MEDS: ASPIRIN 81 MG CHEW PO SCH (08:13)
[2017-06-25 09:00] LABS: Basophils % (A) 0 %; CH 27.5; CHCM 31.1; Eosinophils # (A) 0.3 k/uL (0-0.7); Eosinophils % (A) 4 %; HCT 25.5 % (39.0-53.0); HDW 2.49; HGB 7.9 gm/dL (13.0-17.5); Hypochromasia Slight; Luc # (Auto) 0.13; Luc % (Auto) 2; Lymphocytes # (A) 1.4 k/uL (1.0-4.8); Lymphocytes % (A) 19 %; MCH 27.5 pg (25.0-35.0); MCV 88.8 fL (80.0-100.0); Mean Platelet Volume 6.9; Monocytes # (A) 0.3 k/uL (0-1.0); Monocytes % (A) 4 %; Neutrophils # (A) 5.2 k/uL (1.3-7.7); Neutrophils % (A) 71 %; RBC 2.87 m/uL (4.30-5.90); RDW 15.5 % (11.5-15.5); WBC 7.4 k/uL (3.8-10.6); WBC (Perox) 7.73
[2017-06-25 09:08] LABS: ALT 36 U/L (21-72); AST 22 U/L (17-59); Alkaline Phosphatase 67 U/L (38-126); Anion Gap 5 mmol/L; Blood Urea Nitrogen 23 mg/dL (9-20); Calcium 8.5 mg/dL (8.4-10.2); Carbon Dioxide 23 mmol/L (22-30); Chloride 108 mmol/L (98-107); Glucose 120 mg/dL (74-99); Magnesium 1.8 mg/dL (1.6-2.3); Non-African American GFR(MDRD) >60 (>60 ml/min/1.73 sqM); Phosphorous 3.4 mg/dL (2.5-4.5); Potassium 4.7 mmol/L (3.5-5.1); Sodium 136 mmol/L (137-145); Total Bilirubin <0.1 mg/dL (0.2-1.3)
[2017-06-25] MEDS: cefTRIAXone 2,000 MG in SODIUM CHLORIDE 0.9% 100 ML IVPB SCH (09:14)
[2017-06-25 11:47] VITALS: BMI 57.4
[2017-06-25 12:02] LABS: Glucose,Whole Blood 163 mg/dL (75-99)
[2017-06-25] MEDS: MULTIVITAMINS, THERA 1 EACH TAB PO SCH (12:53)
--- NOTE | 2017-06-25 14:29 | P.DS ---
Providers Date of admission: 06/20/17 15:24 Expected date of discharge: 06/25/17 Attending physician: Brent Chong Consults: 06/20/17 15:40 Consult Physician Routine Consulting Provider: Ameya Cortez Consult Reason/Comments: ICU management Do you want consulting provider notified?: Yes 06/21/17 13:08 Consult Physician Routine Consulting Provider: Syed Becerra Consult Reason/Comments: Worsening/Nonhealing decubitis ulcer Do you want consulting provider notified?: Yes 06/24/17 10:55 Consult Physician Routine Consulting Provider: Merry Hassan Consult Reason/Comments: Determine competency/possible legal guardian needed Do you want consulting provider notified?: Yes Primary care physician: Brent Chong Hospital Course: This is a 56-year-old male who presented to the emergency room on VNS. Currently the day before the patient fell out of his wheelchair and EMS was called. EMS was called to the patient also again the following day due to altered mental status as reported by a neighbor. According to his medical records, the patient has a history of noncompliance in regards to his medical regimen and has had multiple readmissions to the hospital. He has a history of bilateral [id number] amputations, IV drug abuse, and a large decubitus ulcer to his coccyx. His blood sugars in the emergency room and then 600. He was diagnosed with diabetic ketoacidosis and admitted to the intensive care unit where he was started on insulin drip with every hour capillary blood glucose checks. Dr. Becerra, infectious disease, was consulted due to the patient's decubitus ulcers and the risk of the patient developing sepsis. The patient was placed on vancomycin and meropenum. Dr. Becerra is recommending that the patient be placed on doxycycline 100 mg twice a day upon discharge. Local wound care has continued with the silver alginate to his coccyx wounds. Dr. Becerra to see the patient after discharge in the wound healing Center. The patient was recommended to go to ECF placement, however the patient is ineligible for ECF at this time due to no insurance coverage. Social work spoke to the patient about starting HMO disenrollment so that he could go to an ECF for long-term care. The patient adamantly refused and told the director social welfare he wanted to be discharged home and would not go to an ECF. Dr. Chong recommended that the patient have a legal guardian. The patient remains oriented 3. He states he has a caregiver 6 days a week and a nurse who comes to his apartment 2 days a week per social work's note. A consult was placed for psychiatry to help determine competency prior to pursuing a guardian. At this time, psychiatry has not evaluated the patient. Dr. Chong states to discharge the patient and he will follow-up on an outpatient basis regarding a legal guardian for the patient. DISCHARGE diagnosis: 1. Diabetic ketoacidosis, present on admission, resolved 2. Hyperglycemia due to uncontrolled type 2 diabetes mellitus, chronic 3. History of bilateral above the knee amputation, due to uncontrolled diabetes 4. Stage III decubitus ulcer on buttocks/coccyx area, present on admission 5. 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 Stage 2 pressure ulcer to left hip, present on admission 7. Stage 2 pressure ulcer to mid-back, present on admission, progressed to stage III The above impression and plan of care have been discussed and directed by signing physician. She Rainey, nurse practitioner, acting as scribe for signing physician. Patient Condition at Discharge: Fair Plan - Discharge Summary New Discharge Prescriptions: New Doxycycline Monohydrate [Monodox] 100 mg PO Q12HR #60 cap Calcium Carbonate [Tums] 500 mg PO TID PRN PRN Reason: Heartburn Aspirin 81 mg PO DAILY Atorvastatin [Lipitor] 40 mg PO HS tab Collagenase [Santyl] 1 applic TOPICAL DAILY dose Dronabinol [Marinol] 2.5 mg PO AC-BID #60 cap DULoxetine HCL [Cymbalta] 30 mg PO BID cap Gabapentin [Neurontin] 300 mg PO TID cap Multivitamins, Thera [Multivitamin (formulary)] 1 each PO 1200 tab QUEtiapine [SEROquel] 50 mg PO HS #30 tab Varenicline [Chantix] 1 mg PO BID #60 tab Continue Carvedilol [Coreg] 6.25 mg PO BID Omeprazole 20 mg PO DAILY hydrALAZINE HCL [Apresoline] 50 mg PO TID Insulin Glargine [Lantus] 38 unit SQ DAILY INSULIN LISPRO (humaLOG) [humaLOG (formulary)] 8 units SQ AC-TID Losartan Potassium 25 mg PO DAILY Discontinued Methadone [Dolophine] 10 mg PO Q8HR #21 tab QUEtiapine [SEROquel] 200 mg PO HS Discharge Medication List Carvedilol [Coreg] 6.25 mg PO BID 06/13/14 [History] Omeprazole 20 mg PO DAILY 06/12/16 [History] INSULIN LISPRO (humaLOG) [humaLOG (formulary)] 8 units SQ AC-TID 04/06/17 [ History] Insulin Glargine [Lantus] 38 unit SQ DAILY 04/06/17 [History] Losartan Potassium 25 mg PO DAILY 04/06/17 [History] hydrALAZINE HCL [Apresoline] 50 mg PO TID 04/06/17 [History] Doxycycline Monohydrate [Monodox] 100 mg PO Q12HR #60 cap 06/24/17 [Rx] Aspirin 81 mg PO DAILY 06/25/17 [Rx] Atorvastatin [Lipitor] 40 mg PO HS tab 06/25/17 [Rx] Calcium Carbonate [Tums] 500 mg PO TID PRN 06/25/17 [Rx] Collagenase [Santyl] 1 applic TOPICAL DAILY dose 06/25/17 [Rx] DULoxetine HCL [Cymbalta] 30 mg PO BID cap 06/25/17 [Rx] Dronabinol [Marinol] 2.5 mg PO AC-BID #60 cap 06/25/17 [Rx] Gabapentin [Neurontin] 300 mg PO TID cap 06/25/17 [Rx] Multivitamins, Thera [Multivitamin (formulary)] 1 each PO 1200 tab 06/25/17 [Rx ] QUEtiapine [SEROquel] 50 mg PO HS #30 tab 06/25/17 [Rx] Varenicline [Chantix] 1 mg PO BID #60 tab 06/25/17 [Rx] Follow up Appointment(s)/Referral(s): Syed Becerra MD [STAFF PHYSICIAN] - 1 Week Brent Chong MD [Primary Care Provider] - 1 Week Patient Instructions/Handouts: Diabetic Ketoacidosis (DC), Pressure Ulcer (DC) Activity/Diet/Wound Care/Special Instructions: [facility]: #[phone] Hospital bed ordered through [facility]: #[phone] Fall precautions. Cardiac, diabetic diet. Change positions every 2 hours while awake. MRSA/VRE precautions. Discharge Disposition: HOME WITH HOME HEALTH SERVICES
[2017-06-25 15:20] VITALS: BP 105/62; PULSE 75; TEMP 98.8
--- NOTE | 2017-06-25 16:34 | P.CN ---
Psychiatric Consult - . Consult date: 06/25/17 Consult:: 06/25/17 16:21 Identification and Reason for Consult: Patient is a 56-year-old male who was admitted to the hospital on June 20 for altered mental status and a blood sugar level greater than 600. Consult was requested to assess competency, the chart was reviewed and the patient was seen in her no family members present. History of Present Illness: Patient was admitted with a blood sugar elevated above 600 as well as having a urinary tract infection and decubitus ulcers. Patient states that he was at home and has and his caregiver that comes in 6 times a week. Patient states that he stopped checking his blood sugars because he wasn't eating and wasn't taking his insulin. Patient states that when his blood sugars get high when he tests him he stops testing them because he is afraid they'll continue to increase and he doesn't want to see that. Patient was able to tell me that he is to check his blood sugars before each meal and before bedtime and states that he has a sliding scale for insulin and was able to explain that to me. Patient has been admitted 5 times in 2016 and his last was in May 2017 for similar uncontrolled blood sugars. Patient states that he has been treated for depression in the past he thinks beginning in his 40s. Patient states that he had one inpatient admission here in 1999 when he had suicidal ideation and depression but has no further inpatient treatment. Patient states he has been taking Seroquel 200 mg at bedtime and Cymbalta 30 mg twice a day and this is been prescribed by his PCP. Patient states that he is not feeling depressed, denied any suicidal ideation currently and states that he is aware of the need to take care of his diabetes. I went to see the patient yesterday and he was sound asleep and so will at evening he received Seroquel 50 mg instead of 200 mg as the patient was overly sedated. Past Psychiatric History: Patient states he has 1 prior inpatient admission to this hospital in the early 1999 for suicidal ideation and depression. He states he was seen in an outpatient clinic in the past for depression and has been on the current dose of Cymbalta 30 mg twice a day and Seroquel 200 mg at bedtime for a number of years. He is not currently seeing a psychiatrist. Past Medical/Surgical History: Patient has a history of hepatitis C, diabetes mellitus, peripheral vascular disease, coronary artery disease, COPD he has MRSA positive he has had decubitus ulcers. Patient is status post bilateral [id number] amputation, status post appendectomy he has had a heart catheterization in the past and he is status post hernia repair. Current Medications Aspirin (Aspirin) 81 mg PO DAILY [facility] Last Admin: 06/25/17 08:13 Dose: 81 mg Atorvastatin Calcium (Lipitor) 40 mg PO HS [facility] Last Admin: 06/24/17 21:12 Dose: 40 mg Calcium Carbonate/Glycine (Tums) 500 mg PO TID PRN PRN Reason: Heartburn Carvedilol (Coreg) 6.25 mg PO BID-W/MEALS [facility] Last Admin: 06/25/17 08:12 Dose: 6.25 mg Collagenase (Santyl) 1 applic TOPICAL DAILY [facility] Last Admin: 06/25/17 08:13 Dose: 1 applic Dronabinol (Marinol) 2.5 mg PO AC-BID [facility] Last Admin: 06/25/17 08:12 Dose: 2.5 mg Duloxetine HCl (Cymbalta) 30 mg PO BID [facility] Last Admin: 06/25/17 08:12 Dose: 30 mg Gabapentin (Neurontin) 300 mg PO TID [facility] Last Admin: 06/25/17 08:12 Dose: 300 mg Hydralazine HCl (Apresoline) 50 mg PO TID [facility] Last Admin: 06/25/17 08:12 Dose: 50 mg Sodium Chloride (Saline 0.9%) 1,000 mls @ 20 mls/hr IV .Q24H [facility] Last Admin: 06/25/17 09:14 Dose: 20 mls/hr Sodium Chloride (Saline 0.9%) 1,000 mls @ 75 mls/hr IV .[id number] [facility] Last Admin: 06/25/17 08:07 Dose: Not Given Ceftriaxone Sodium 2,000 mg/ (Sodium Chloride) 100 mls @ 100 mls/hr IVPB Q24HR [facility] Last Admin: 06/25/17 09:14 Dose: 100 mls/hr Vancomycin HCl 1,000 mg/ (Sodium Chloride) 250 mls @ 125 mls/hr IVPB Q12H [facility] Last Admin: 06/25/17 05:49 Dose: 125 mls/hr Insulin Glargine (Lantus) 38 unit SQ [facility] Last Admin: 06/24/17 21:12 Dose: 38 unit Insulin Human Lispro (Humalog) 0 unit SQ [id number] [facility] PRN Reason: Protocol Last Admin: 06/25/17 12:53 Dose: 1 unit Losartan Potassium (Cozaar) 25 mg PO DAILY [facility] Last Admin: 06/25/17 08:12 Dose: 25 mg Methadone HCl (Dolophine) 5 mg PO TID [facility] Last Admin: 06/25/17 08:12 Dose: 5 mg Miscellaneous Information (Potassium Per Protocol) 1 each MISCELLANE DAILY PRN ; Protocol PRN Reason: Per Protocol Miscellaneous Information (Phosphorus Per Protocol) 1 each MISCELLANE DAILY PRN ; Protocol PRN Reason: Per Protocol Miscellaneous Information (Magnesium Per Protocol) 1 each MISCELLANE DAILY PRN ; Protocol PRN Reason: Per Protocol Multivitamins (Theragran) 1 each PO 1200 [facility] Last Admin: 06/25/17 12:53 Dose: 1 each Pantoprazole Sodium (Protonix) 40 mg PO [id number] [facility] Last Admin: 06/25/17 08:13 Dose: 40 mg Quetiapine Fumarate (Seroquel) 50 mg PO HS [facility] Last Admin: 06/24/17 21:56 Dose: 50 mg Varenicline (Chantix) 0.5 mg PO DAILY [facility] PRN Reason: Taper Stop: 07/01/17 08:59 Last Admin: 06/25/17 08:12 Dose: 0.5 mg Varenicline (Chantix) 1 mg PO BID [facility] Family History: Patient reports he has no family history of psychiatric disorder in his brother who is had an alcohol problem and accidentally took an overdose of heroin. He reports no completed suicides in the family. Social History: Patient was born and raised in [place] and both of his parents are . The patient has one living brother and 2 siblings. Patient quit school in the 10th grade and never completed a GED. 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 Patient states that he is supported on Social Security disability. Patient has never and has a 33-year-old son from a prior relationship. He states that he is not currently in any relationships. Patient denies any history of abuse. Substance Use History: Patient states that he last used any alcohol at [place] time and has never been a heavy drinker. Patient reports a 25 year history of IV heroin use and stopped several years ago after he had an unintentional overdose. Patient states that he has no other current drug use. Patient is on methadone he states this is for pain control Legal History:. Patient states he has had several DUIs in the past. Mental Status:Appearance/Attitude: Patient is lying in his hospital bed, dressed in a hospital gown in no acute distress, he makes intermittent eye contact and was cooperative. Behavior: Patient displays no psychomotor agitation or retardation. Speech/Language: Patient's speech is spontaneous, of normal volume and rhythm and he is coherent. Thought Process: Patient was goal-directed there is no evidence of any circumstantial or tangential thought and no loose associations or flight of ideas. Thought Content: Patient denied any auditory or visual hallucinations and no paranoid or delusional ideation was elicited. Patient denied feeling depressed , discussed his not using insulin denied eating as well as not checking his blood sugars due to not wanting to see how high his blood sugars had gotten. Patient denied any sleep or appetite difficulties at this time. Suicidal/Homicidal Ideation: Patient denied any current suicidal or homicidal ideation. Sensorium/Cognition: Patient was alert and oriented to person, place, and time and he was given a MOCA and obtained a score of 24 out of 30, patient was unable to recall 5 items after 5 minutes and he was unable to name more than 11 words in 1 minute that began with the letter F. Mood/Affect: Patient's mood was euthymic and his affect is appropriate. Insight/Judgement: Patient's insight and judgment are fair. Assessment: Patient was able to discuss with me his diabetes and how he is to monitor his blood sugar, take his insulin and uses a sliding scale. Patient does have a caregiver for 6 days a week and he states that he microwaves most of his meals which are not meeting with the diabetic diet. Patient reports that he does have some memory issues. Patient states that the reason he wasn't checking his blood sugars was because he was not eating and then when the blood sugars are high heat stops checking his blood sugars because he doesn't want to see how high they really are. When I discussed with the patient the consequences of such behavior he was able to tell me that he has been here 5 times this year for similar concerns. Diagnosis: Unspecified depression by history, mild cognitive impairment unknown etiology Plan: Patient was overly sedated on Seroquel 200 mg and should be continued on Seroquel 50 mg at bedtime, his Cymbalta at 30 mg twice a day as appropriate and he should be continued on this at discharge as well as a lower dose of Seroquel. Patient was able to explain to me how he was to monitor his blood sugars, take his insulin and uses a sliding scale. Patient does have some recent memory difficulties. Patient is not eating a diabetic diet at home which will make his blood sugars even more difficult to control and I recommend a home health work with the patient on a proper diabetic diet as well as monitoring his use of insulin. Patient is able to manipulate medical information and does not meet the criteria for an inability to make informed medical decisions at this time. I spoke with the director of social services regarding my findings.
[2017-06-25 17:30] LABS: Glucose,Whole Blood 317 mg/dL (75-99)
--- NOTE | 2017-06-25 18:12 | P.PN ---
Subjective Principal diagnosis: sepsis, dka 56-year-old male who has a long-standing history of medical noncompliance presents to emergency center not feeling well. Deidre Singer change in his status. Became very weak. At presentation was found to again have evidence of diabetic ketoacidosis with a blood sugar of 1200. The patient was admitted to the intensive care unit and with resuscitation is improving. At this time is denying new fevers chills or rigors or sweats but is certainly very ill and weak at this time. Has multiple large skin pressure ulcerations which will be addressed at this time. Feeling much better today. More awake and alert. His blood sugars improved. Understands that he is continuing to fail as far as his overall health. Less agitated today. The primary physician has asked for a evaluation of competence Objective - Vital Signs Vital signs: Vital Signs Temp 98.8 F 06/25/17 15:00 Pulse 75 06/25/17 15:00 Resp 16 06/25/17 15:00 BP 105/62 06/25/17 15:00 Pulse Ox 96 06/25/17 15:00 Intake & Output 06/24/17 06/25/17 06/25/17 18:59 06:59 18:59 Output Total 700 1450 Balance -700 -1450 Weight 48 kg Output: Urine 700 1450 Other: Voiding Method Urinal Urinal Urinal # Voids 3 1 # Bowel Movements 1 1 - Exam this is a 56-year-old emaciated male. HEENT: Head is atraumatic, normocephalic. Pupils equal, round. Sclerae is anicteric. Mucous membranes of the mouth are dry. Thrush is noted. Dentition is in poor order. NECK: Supple. No JVD. No lymphadenopathy. No thyromegaly. LUNGS: Coarse sounds bilaterally with poor inspiratory effort. No intercostal retractions. HEART: Regular rate and rhythm. No murmur. ABDOMEN: Soft. Bowel sounds are present. No masses. No tenderness. EXTREMITIES: Bilateral lower extremity amputations noted. Evidence of the open ulceration to the right lateral residual limb. Skin: Please refer to the nursing photography for the extensive buttocks coccyx trochanteric and right residual limb ulcerations. For the overall measurements. The do appear to be necrotic with some infection. NEUROLOGICAL patient is now awake alert oriented to person place and time no longer agitated . - Labs CBC & Chem 7: 06/25/17 08:11 06/25/17 08:11 Labs: Abnormal Lab Results - Last 24 Hours (Table) 06/24/17 06/25/17 06/25/17 Range/Units 20:39 02:39 07:21 RBC (4.30-5.90) m/uL Hgb (13.0-17.5) gm/dL Hct (39.0-53.0) % Plt Count (150-450) k/uL Sodium (137-145) mmol/L Chloride (98-107) mmol/L BUN (9-20) mg/dL Glucose (74-99) mg/dL POC Glucose (mg/dL) 141 H 268 H 169 H (75-99) mg/dL Total Bilirubin (0.2-1.3) mg/dL Total Protein (6.3-8.2) g/dL Albumin (3.5-5.0) g/dL 06/25/17 06/25/17 06/25/17 Range/Units 08:11 08:11 11:59 RBC 2.87 L (4.30-5.90) m/uL Hgb 7.9 L (13.0-17.5) gm/dL Hct 25.5 L (39.0-53.0) % Plt Count 453 H (150-450) k/uL Sodium 136 L (137-145) mmol/L Chloride 108 H (98-107) mmol/L BUN 23 H (9-20) mg/dL Glucose 120 H (74-99) mg/dL POC Glucose (mg/dL) 163 H (75-99) mg/dL Total Bilirubin <0.1 L (0.2-1.3) mg/dL Total Protein 5.0 L (6.3-8.2) g/dL Albumin 2.2 L (3.5-5.0) g/dL 06/25/17 Range/Units 17:14 RBC (4.30-5.90) m/uL Hgb (13.0-17.5) gm/dL Hct (39.0-53.0) % Plt Count (150-450) k/uL Sodium (137-145) mmol/L Chloride (98-107) mmol/L BUN (9-20) mg/dL Glucose (74-99) mg/dL POC Glucose (mg/dL) 317 H (75-99) mg/dL Total Bilirubin (0.2-1.3) mg/dL Total Protein (6.3-8.2) g/dL Albumin (3.5-5.0) g/dL Microbiology - Last 24 Hours (Table) 06/20/17 14:10 Blood Culture - Preliminary Blood No Growth after 120 hours Laboratory Results WBC 7.4 k/uL (3.8-10.6) 06/25/17 08:11 RBC 2.87 m/uL (4.30-5.90) L 06/25/17 08:11 Hgb 7.9 gm/dL (13.0-17.5) L 06/25/17 08:11 Hct 25.5 % (39.0-53.0) L 06/25/17 08:11 MCV 88.8 fL (80.0-100.0) 06/25/17 08:11 MCH 27.5 pg (25.0-35.0) 06/25/17 08:11 MCHC 31.0 g/dL (31.0-37.0) 06/25/17 08:11 RDW 15.5 % (11.5-15.5) 06/25/17 08:11 Plt Count 453 k/uL (150-450) H 06/25/17 08:11 Neutrophils % 71 % 06/25/17 08:11 Lymphocytes % 19 % 06/25/17 08:11 Monocytes % 4 % 06/25/17 08:11 Eosinophils % 4 % 06/25/17 08:11 Basophils % 0 % 06/25/17 08:11 Neutrophils # 5.2 k/uL (1.3-7.7) 06/25/17 08:11 Lymphocytes # 1.4 k/uL (1.0-4.8) 06/25/17 08:11 Monocytes # 0.3 k/uL (0-1.0) 06/25/17 08:11 Eosinophils # 0.3 k/uL (0-0.7) 06/25/17 08:11 Basophils # 0.0 k/uL (0-0.2) 06/25/17 08:11 Manual Slide Review Performed 06/23/17 08:07 Hypochromasia Slight 06/25/17 08:11 Poikilocytosis (manual Present 06/23/17 08:07 Macrocytosis Slight 06/20/17 14:10 PT 10.4 sec (9.0-12.0) 06/20/17 14:10 INR 1.0 (<1.2) 06/20/17 14:10 APTT 22.8 sec (22.0-30.0) 06/20/17 14:10 Sodium 136 mmol/L (137-145) L 06/25/17 08:11 Potassium 4.7 mmol/L (3.5-5.1) 06/25/17 08:11 Chloride 108 mmol/L (98-107) H 06/25/17 08:11 Carbon Dioxide 23 mmol/L (22-30) 06/25/17 08:11 Anion Gap 5 mmol/L 06/25/17 08:11 BUN 23 mg/dL (9-20) H 06/25/17 08:11 Creatinine 0.78 mg/dL (0.66-1.25) 06/25/17 08:11 Est GFR (MDRD) Af Amer >60 (>60 ml/min/1.73 sqM) 06/25/17 08:11 Est GFR (MDRD) Non-Af >60 (>60 ml/min/1.73 sqM) 06/25/17 08:11 Glucose 120 mg/dL (74-99) H 06/25/17 08:11 POC Glucose (mg/dL) 317 mg/dL (75-99) H 06/25/17 17:14 POC Glu [employer] ID Kath Aponte 06/25/17 17:[address] Glu mg/dL 367 mg/dL 06/21/17 00:30 Hemoglobin A1c 14.4 % (4.2-6.1) H 06/21/17 00:30 Plasma Lactic Acid Ayo 1.6 mmol/L (0.7-2.0) 06/21/17 00:30 Calcium 8.5 mg/dL (8.4-10.2) 06/25/17 08:11 Phosphorus 3.4 mg/dL (2.5-4.5) 06/25/17 08:11 Magnesium 1.8 mg/dL (1.6-2.3) 06/25/17 08:11 Total Bilirubin <0.1 mg/dL (0.2-1.3) L 06/25/17 08:11 AST 22 U/L (17-59) 06/25/17 08:11 ALT 36 U/L (21-72) 06/25/17 08:11 Alkaline Phosphatase 67 U/L (38-126) 06/25/17 08:11 Ammonia <9 umol/L (<30) 06/20/17 14:10 Total Creatine Kinase 191 U/L (55-170) H 06/20/17 14:10 CK-MB (CK-2) 6.1 ng/mL (0.0-2.4) H* 06/20/17 14:10 CK-MB (CK-2) Rel Index 3.2 06/20/17 14:10 Troponin I <0.012 ng/mL (0.000-0.034) 06/20/17 14:10 Total Protein 5.0 g/dL (6.3-8.2) L 06/25/17 08:11 Albumin 2.2 g/dL (3.5-5.0) L 06/25/17 08:11 Urine Color Colorless 06/20/17 14:20 Urine Appearance Cloudy (Clear) 06/20/17 14:20 Urine pH 6.5 (5.0-8.0) 06/20/17 14:20 Ur Specific Gibson 1.017 (1.001-1.035) 06/20/17 14:20 Urine Protein Negative (Negative) 06/20/17 14:20 Urine Glucose (UA) 4+ (Negative) H 06/20/17 14:20 Urine Ketones Negative (Negative) 06/20/17 14:20 Urine Blood Trace (Negative) H 06/20/17 14:20 Urine Nitrite Negative (Negative) 06/20/17 14:20 Urine Bilirubin Negative (Negative) 06/20/17 14:20 Urine Urobilinogen <2.0 mg/dL (<2.0) 06/20/17 14:20 Ur Leukocyte Esterase Large (Negative) H 06/20/17 14:20 Urine RBC 2 /hpf (0-5) 06/20/17 14:20 Urine WBC >182 /hpf (0-5) H 06/20/17 14:20 Urine WBC Clumps Few /hpf (None) H 06/20/17 14:20 Urine Yeast (Budding) Few /hpf (None) H 06/20/17 14:20 Vancomycin Trough 11.4 ug/mL 06/24/17 04:54 Acetone, Qual Positive (Negative) 06/20/17 14:10 Microbiology 06/20/17 14:10 Blood Blood Culture - Preliminary No Growth after 120 hours 06/20/17 14:10 Buttock Gram Stain - Final 06/20/17 14:10 Buttock Wound Culture - Final Klebsiella pneumoniae Methicillin resist S. aureus Methicillin resist S. aureus#2 06/20/17 14:20 Urine,Voided Urine Culture - Final Karina albicans Assessment and Plan (1) Diabetic ketoacidosis Status: Acute (2) Decubitus ulcer of sacral region, stage 4 Narrative/Plan: 56-year-old male presents to the emergency center if not feeling well. He was trying to take care of himself at home. When this failed he eventually came to the emergency center and was not evidence of a blood sugar of 1200. Does not take his blood sugars at home. It is noted in the past his chronic medical noncompliance. At admission the patient was profoundly ill and hypotensive and dehydrated and responded well to fluids. Concerns for sepsis because of the extensive ulcerations as noted. Local wound care is provided with the silver alginate to the large buttocks ulcerations foam to the left trochanteric area and Santyl to the other regions. Antibiotic therapy is with vancomycin and meropenem for the likely isolated pathogens. Blood culture negative so far The patient has a very complex psychosocial status. Several times in the past we've arranged for him to go to extended care facility to receive antibiotic therapy only to sign himself out shortly thereafter. He has a complex history that makes placement into the extended care facilities difficult. He was sent to a facility in [place] who accept him willingly and he signed out from that place also He will not have the opportunity for outpatient intravenous antibiotic therapy and his discharge The wound culture did show evidence of the MRSA as well as of the Klebsiella pneumoniae which are also susceptible to doxycycline, antibiotic therapy is changed to doxycycline 100 mg orally twice per day. This will continue through his follow-up in the wound healing Center where I can also see him. Continue aggressive wound care until discharge then follow in [facility] Seen by psychiatry no concerns to competence,, but of course makes very bad choices. Status: Acute
[2017-07-01] MEDS ORDERED: VARENICLINE 1 MG TAB PO SCH (09:00)
== END 2017-06-25 18:52 | disposition home health service (06) | DRG 637 ==
LOC: EC 13:49 → 6ICU 15:24 → 4MS4W 06-22 15:33
PROVIDERS: ADMIT Family Medicine; ATTEND Family Medicine
DX: E13.10 Other specified diabetes mellitus with ketoacidosis without coma (principal); L89.154 Pressure ulcer of sacral region, stage 4; L89.222 Pressure ulcer of left hip, stage 2; I50.9 Heart failure, unspecified; L89.503 Pressure ulcer of unspecified ankle, stage 3; L89.303 Pressure ulcer of unspecified buttock, stage 3; F05 Delirium due to known physiological condition; J44.1 Chronic obstructive pulmonary disease with (acute) exacerbation; N39.0 Urinary tract infection, site not specified; L97.119 Non-pressure chronic ulcer of right thigh with unspecified severity; L03.90 Cellulitis, unspecified; S22.31XA Fracture of one rib, right side, initial encounter for closed fracture; E86.0 Dehydration; T87.89 Other complications of amputation stump; E11.622 Type 2 diabetes mellitus with other skin ulcer; F32.9 Major depressive disorder, single episode, unspecified; D64.9 Anemia, unspecified; F17.210 Nicotine dependence, cigarettes, uncomplicated; H91.90 Unspecified hearing loss, unspecified ear; I73.9 Peripheral vascular disease, unspecified; W05.0XXA Fall from non-moving wheelchair, initial encounter; Z79.4 Long term (current) use of insulin; Z89.611 Acquired absence of right leg above knee; Z79.82 Long term (current) use of aspirin; Z79.899 Other long term (current) drug therapy; Z80.0 Family history of malignant neoplasm of digestive organs; Z80.8 Family history of malignant neoplasm of other organs or systems; Z82.49 Family history of ischemic heart disease and other diseases of the circulatory system; Z89.511 Acquired absence of right leg below knee; Z89.612 Acquired absence of left leg above knee; Z91.14 Patient's other noncompliance with medication regimen; Z91.19 Patient's noncompliance with other medical treatment and regimen; Z88.1 Allergy status to other antibiotic agents
CPT/HCPCS: 36415; 70450; 71010; 71020; 80048; 80051; 80053; 80202; 81001; 82009; 82140; 82550; 82553; 83036; 83605; 83735; 84100; 84484; 85025; 85610; 85730; 87040; 87070; 87077; 87086; 87186; 87205; 93005; 96361; 96374; 99285